=== PATIENT | female | born 1940 | race Caucasian/White ===

== ENCOUNTER → 2017-09-15 07:35 | Outpatient (CLI) | payer MEDICARE, OTHER, SELFPAY ==
--- NOTE | 2017-09-15 07:39 | DI.MRI.S_ITS ---
PROCEDURE: MR LUMBAR SPINE WO CON INDICATIONS: Back Pain TECHNIQUE: Noncontrast sagittal T1 spin echo and T2 fast echo, sagittal STIR, axial T1 and T2 fast spin echo through the lumbar spine. In cases with scoliosis, additional coronal T2 fast spin echo may be performed. COMPARISON: [facility], MR, L-SPINE WITHOUT CONTRAST, 01/16/2016, 10:30. [facility], MR, L-SPINE WITHOUT CONTRAST, 10/23/2010, 7:43. FINDINGS: Image quality: Excellent. Alignment and Curvature: There is normal bony alignment. Bone Marrow: Mild non-acute vertebral body compression fracture of T12 appears unchanged. There is degenerative endplate signal changes in lumbar spine. Spinal Cord: Conus medullaris terminates at the L1-L2 level. Visualized cord demonstrates normal signal and size. Paraspinous Soft Tissues: No paravertebral masses. L1-L2: Mild loss of disc height. Moderate disc desiccation. There is diffuse posterior disc bulge and disc osteophyte complex. The central canal is mildly narrowed. No foraminal stenosis. No significant change from the last exam. L2-L3: Severe loss of disc height and disc desiccation. There is diffuse posterior disc bulge and disc osteophyte complex. The central canal is moderately narrowed. Moderate bilateral foraminal stenosis. No significant change from the last exam. L3-L4: Minimal loss of disc height and severe disc desiccation. There is diffuse posterior disc bulge and disc osteophyte complex. Mild bilateral facet arthropathy and hypertrophy of ligamentum flavum. The central canal is severely narrowed. Moderate to severe bilateral foraminal stenosis. Compared to the last exam, there is increased Central canal and foramina stenosis. L4-L5: [id number] loss of disc height and severe disc desiccation. There is diffuse posterior disc bulge and disc osteophyte complex. Moderate bilateral facet arthropathy and severe hypertrophy of ligamentum flavum. The central canal is severely narrowed. Severe bilateral foraminal stenosis. Compared to the last exam, there is increased central canal and foramina stenosis. L5-S1: Moderate loss of disc height and severe disc desiccation. There is diffuse posterior disc bulge and disc osteophyte complex. Mild bilateral facet arthropathy and severe hypertrophy of ligamentum flavum. The central canal is mildly narrowed. Moderate to severe bilateral foraminal stenosis. Compared to the last exam, there is no significant change. IMPRESSION: 1. Multilevel degenerative disc disease and facet arthropathy as described. 2. Severe central canal stenosis at L3-L4 and L4-L5. 3. Multilevel foraminal stenosis, severe at L4-L5 bilaterally, [id number] at L3-L4 and L5-S1 bilaterally, and moderate at L2-L3 bilaterally. 4. Mild non--acute compression fracture of T12. Dictated by: Key Mckeon M.D. on 09/15/2017 at 12:39 Transcribed by: GEORGI on 09/15/2017 at 12:55 Approved by: Key Mckeon M.D. on 09/15/2017 at 15:56
== END ==
PROVIDERS: Family Provider Internal Medicine; PCP Internal Medicine; Visit Provider Internal Medicine
DX: M51.36 Other intervertebral disc degeneration, lumbar region (principal); M47.816 Spondylosis without myelopathy or radiculopathy, lumbar region; M48.061 Spinal stenosis, lumbar region without neurogenic claudication; M48.56XG Collapsed vertebra, not elsewhere classified, lumbar region, subsequent encounter for fracture with delayed healing; M54.5 Low back pain
CPT/HCPCS: 72148

== ENCOUNTER → 2017-11-04 10:10 | Outpatient (CLI) | payer MEDICARE, OTHER, SELFPAY ==
[2017-11-04 10:49] LABS: Add Manual Diff / Slide Review NO; Basophils Percent Auto 0.5 % (0-2); Eosinophils Percent Auto 2.7 % (2-4); Hematocrit 39.4 % (36-46); Hemoglobin 13.5 g/dL (12.0-16.0); Lymphocytes Percent Auto 30.5 % (25-40); Mean Corpuscular HGB Conc 34.4 % (30-36); Monocytes Percent Auto 8.3 % (3-14); Neutrophils Absolute Auto 2800 /uL (3000-5900); Platelet Count 192 X10^3/uL (150-400); Red Blood Cell Count 3.87 X10^6/uL (4.0-5.2); Red Cell Distribution Width 14.2 % (11.6-14.8); White Blood Cell Count 4.9 X10^3/uL (4.5-11.0)
[2017-11-04 11:22] LABS: BUN Creatinine Ratio 27.1 (6-22); Blood Urea Nitrogen 19 mg/dL (7-17); Calcium 9.4 mg/dL (8.4-10.2); Carbon Dioxide 31 mmol/L (22-32); Chloride 103 mmol/L (98-107); Estimated Glomerular Filt Rate > 60.0 mL/min (>60); Glucose 96 mg/dL (80-110); HEMOLYSIS < 15 (0-50); Sodium 142 mmol/L (137-145)
[2017-11-04 11:25] LABS: Prothrombin Time 10.8 SECONDS (10.1-12.7)
[2017-11-04 11:28] LABS: PTT Partial Thromboplastin Tim 29 SECONDS (26.4-36.2)
== END ==
PROVIDERS: Family Provider Internal Medicine; PCP Internal Medicine; Visit Provider Orthopaedic Surgery Orthopaedic Surgery of the Spine
DX: M47.26 Other spondylosis with radiculopathy, lumbar region (principal); Z51.81 Encounter for therapeutic drug level monitoring
CPT/HCPCS: 36415; 80048; 85025; 85610; 85730

== ENCOUNTER 2017-12-02 07:13 | Inpatient (IN) | payer MEDICARE, OTHER, SELFPAY ==
[2017-11-29 08:42] VITALS: BMI 23.8
[2017-12-02] VITALS (17 sets, daily range): BP systolic 113–162; BP diastolic 60–90; PULSE 72–96; RESP 10–18; TEMP 36.2–37.4; O2SAT 87–98; BMI 23.8
--- NOTE | 2017-12-02 | DI.RAD.S_ITS ---
PROCEDURE: XR LUMBAR SPINE 2-3V INDICATIONS: L4-5 TLIF FINDINGS: 2 limited intraoperative fluoroscopically stored images of the lower lumbar spine were obtained for intraoperative hardware localization purposes. These images are not meant for diagnostic purposes. Intraoperative findings related to a L4-L5 discectomy and fusion are present. IMPRESSION: Intraoperative images obtained during the patient's lower lumbar discectomy and fusion procedure. Dictated by: Hoang Ocampo M.D. on 12/02/2017 at 13:18 Approved by: Hoang Ocampo M.D. on 12/02/2017 at 13:22
[2017-12-02] MEDS: LACTATED RINGERS 1,000 ML 42 ML IV ×2 (08:50→11:56)
[2017-12-02] MEDS: CEFAZOLIN 2 GM/100 ML FROZ.PIGGY IV (10:22)
[2017-12-02] MEDS: ACETAMINOPHEN IV 1,000 MG/100 ML VIAL 400 MG IV (10:50)
--- NOTE | 2017-12-02 10:53 | SUR.OPER ---
Prone on spine table, head in foam head support, padded chest and pelvic supports, gel pad at knees, lower legs supported by pillows; nipples, genitalia and toes free of pressure, arms secured on foam padded arm boards at <90 degrees abduction. Tape over blanket at thigh secured to table.
[2017-12-02] MEDS: BUPIVACAINE 0.25% W/ EPI VIAL 30 ML INJ (11:01)
[2017-12-02] MEDS: BUPIVACAINE LIPOSOME 266 MG/20 ML VIAL INJ (11:02)
--- NOTE | 2017-12-02 12:36 | P.OP_ITS ---
Operative Date/Time/Diagnoses Date of procedure: 12/02/17 Time of procedure: 10:30 Pre-op diagnosis: 1. L4-5, L5-S1 spinal stenosis 2. L4-5, L5-S1 spondylosis with radiculopathy 3. Neurogenic claudication Post-op diagnosis: same Procedure & Clinicians Procedure: 1. L4-5 Postero-lateral and posterior interbody fusion 2. L4-5 interbody cage placement. 3. L4-5 decompressive laminectomy with bilateral facetecomies 4. L4-5 Posterior non-segmental instrumentation 5. L5-S1 hemilaminectomy 6. [place] of bone marrow from iliac crest 7. Utilization of microsurgical technique and operating microscope Same procedure as scheduled: Yes Indications: Patient has been having chronic back pain and worsening lumbar radiculopathy. Patient failed multiple conservative management with worsening pain weakness and numbness in her lower extremity. Patient has been having difficulty performing activity of daily living. After discussing risks benefits of treatment options, patient elected proceed with surgery. Surgeon: Sina Jacques Set Up And Charger: Triny Hernández Click Yes if Unassisted: No Anesthesia Type: General Operative Notes Closure Type: primary Specimen(s): none sent Implants & Drains: Globus revolve screws, Rise cage Estimated Blood Loss (mL): 100 Blood products transfused: none Procedure in detail: Patient was seen in the preoperative area. Risks and benefits of the surgery was discussed with the patient. Informed consent was obtained from the patient and placed in the chart. Surgical site was marked. Patient was taken to the operative room. General anesthesia was administered. Prophylactic antibiotic was given to the patient less than 30 min before the incision was made. Patient was placed into a prone position on the [place] table. Patient's back was then prepped and draped in the sterile fashion. Time- out was performed at this time. Using AP and lateral C-arm imaging the interval between L4-5, L5-S1 was identified and marked on patient's back. A 2 inch incision 2 in from midline was made on the left side first. The fascia was incised in line with skin incision. Globus MARS retractors was placed inside the incision and docked onto the L4 lamina. Using microsurgical technique and operating microscope, a L4 laminectomy and L4-5 facetectomy was performed using a Kerrison rongeur. The disc space at L4-5 was identified. And a total diskectomy was performed at L4-5 level. The endplates were decorticated using a rasp and shaver. The total diskectomy and decortication was performed at L4-5 level in order to to accomplish a L4-5 fusion. The local bone from the laminectomy and facetectomy was saved for local bone grafting. After the total diskectomy and decortication was completed, Globus viacell bone graft material was combined with local bone that was harvested earlier. At this time, a separate skin is incision was made over the iliac crest. A Jamshidi needle was inserted into the iliac crest through a separate skin incision. 5 cc of bone marrow aspiration was obtained through the separate skin incision using a Jamshidi needle from the iliac crest. The bone marrow aspiration was combined with local bone and the via cell bone grafting material. The bone grafting material was placed into the L4-5 interbody space along with a expandable cage. The cage was expanded to its maximum height using the torque limiting screwdriver. At this time the MARS retractor was redirected over the L5 lamina. Using microsurgical technique and operating microscope, a L5-S1 heminectomy was performed using the Kerrison rongeur. The ligamentum flavum was also resected at the side of the hemilaminectomy for further decompression of the epidural space. At this time a mirror image incision was made on the [] side. The fascia was incised in line with the skin incision. Globus MARS retractor was inserted and docked onto the L4-5 posterolateral gutter. Using the power drill, posterior- lateral decortication was performed at L4-5 level until bleeding cortical bone was identified. The remaining bone grafting material was placed into the L4-5 posterior lateral gutter he order to accomplish posterolateral fusion at the L4- 5 level. Using the double C-arm technique, pedicle screws were placed into the L4, L5 pedicles bilaterally. This was done by placing the Jamshidi needle into the pedicles, then placing the guidewires over the Jamshidi needle, and finally placing the cannulated screws over the guidewires bilaterally. After the pedicle screws were placed, 2 titanium rods was locked into the heads of the pedicle screws using locking caps and torque limiting screwdriver. After all the hardware was placed, and confirmed with AP and lateral C-arm imaging, the wound was then irrigated with sterile normal saline and packed with Ray-Nohemy gauze for 3 min to accomplish hemostasis. After the gauze was removed the deep fascia was closed with #1 Vicryl suture. The subcutaneous layer was closed with 2-0 Vicryl. The skin was closed with skin therese. Patient tolerated the procedure well. There were no complications. Complications: none Condition: stable Disposition: Acute Care Plan for aftercare: Admit to inpatient hospital
[2017-12-02] MEDS: HYDROMORPHONE 2 MG INJ 1 MG IM ×2 (12:44→13:01)
--- NOTE | 2017-12-02 14:00 | SUR.PHASEI ---
Pt transferred to room 220 via bed with all belongings; clothing and dentures. Vital signs stable. Report given to AMBIKA Manning prior to transfer. Nigel at bedside prior to leaving pt and pt's dressing to lower back assessed together; dressing was clean, dry, and intact. Pt's , Flo, and daughter, Tierra, notified of pt's transfer to 220.
[2017-12-02] MEDS: SODIUM CHLORIDE 0.9% 1,000 ML 100 ML IV ×2 (14:30→23:43)
[2017-12-02] MEDS: TERBINAFINE HCL 250 MG TABLET PO (18:10)
[2017-12-02] MEDS: CEFAZOLIN 1 GM/50 ML FROZ.PIGGY IV (18:40)
[2017-12-02] MEDS: DOCUSATE 100 MG CAPSULE PO (20:16)
[2017-12-02] MEDS: SENNOSIDES 8.6 MG TABLET 17.2 MG PO (20:16)
[2017-12-02] MEDS: OXYCODONE IR 5 MG TABLET 10 MG PO (22:21)
[2017-12-02] MEDS: hydrOXYzine pamoate 25 MG CAPSULE PO (22:21)
--- NOTE | 2017-12-02 23:53 | PC.NURSE ---
Addendum entered by Carmen Copeland R.N. 12/03/17 06:28: Up to commode this morning and voided 1000cc. Tried off O2 but did desat to 85% so placed back on 1L/min oxygen per NC and sat up to 95%. States pain at rest is 2/10 but was 4/10 with activity; medicated with Oxycodone but declined ice pack. SCD's off for hour. Original Note: Addendum entered by Carmen Copeland R.N. 12/03/17 02:41: Requesting to be positioned onto back. States she has slept well past couple hours. the ice really did the trick; denies any pain currently. Original Note: Patient is alert and oriented. Breath sounds CTA with oxygen at 2L/min per NC and sat of 96%. HRR. Denies nausea. BT present and is passing flatus. Denies dysuria, frequency, urgency or incontinence and has been getting up to commode with 1 assist + walker. Currently having 4/10 back pain but was recently medicated so ice pack applied for additional pain relief. Is able to turn with minimal assist. Dressings to back are CDI. CMS intact bilaterally. Artem SCD's placed at bedside shift report.
[2017-12-03] VITALS (7 sets, daily range): BP systolic 107–140; BP diastolic 60–71; PULSE 77–88; RESP 16–20; TEMP 36.3–36.8; O2SAT 91–95
[2017-12-03] MEDS: CEFAZOLIN 1 GM/50 ML FROZ.PIGGY IV (02:38)
[2017-12-03] MEDS: OXYCODONE IR 5 MG TABLET 10 MG PO ×3 (05:48→17:45)
[2017-12-03] MEDS: ASPIRIN EC 81 MG TABLET PO (08:36)
[2017-12-03] MEDS: DOCUSATE 100 MG CAPSULE PO (08:36)
[2017-12-03] MEDS: ACETAMINOPHEN 325 MG TABLET 650 MG PO ×2 (10:21→17:45)
--- NOTE | 2017-12-03 10:29 | PM.PNPO.1 ---
Subjective Date Patient Seen: 12/03/17 Time Patient Seen: 10:30 Interval history: POD #1 status post L4-5 TLIF and L5-S1 hemilaminectomy with Dr. Jacques. Patient's pain is well controlled with Vistaril and oxycodone. ASA for DVT prophylaxis. Patient has been working with physical therapy. No Dela Cruz in place. Exam Vital Signs (past 8 hours): - 12/03/17 02:40 12/03/17 05:50 12/03/17 07:50 Temperature 97.7 F 97.4 F L Pulse Rate 81 77 Respiratory Rate 16 20 Blood Pressure 140/64 135/71 Pulse Oximetry 94 94 95 Oxygen Delivery Method Nasal Cannula Oxygen Flow Rate 1 Narrative Exam Narrative: Patient lying in bed in no acute distress. She is alert and oriented x3. Calves are soft, compressible, nontender bilaterally. She is able to actively dorsiflex plantar flex. Pulses are symmetrical. Objective Labs Result Diagrams: 12/03/17 05:17 Labs: Laboratory Results - last 24 hr 12/03/17 05:17 Hgb 10.0 L Hct 29.0 L Assessment & Plan Post-op (1) S/P lumbar fusion: Current Visit: Yes Status: Acute Postoperative Procedures Operation Date: 12/02/17 09:45 Actual Procedures Side Surgeon p L5-S1 Hemilaminectomy, L4-5 TLIF w/Posterior Instru. Not Applicable Sina Jacques MD POD #1 status post L4-5 TLIF and L5-S1 hemilaminectomy with Dr. Jacques. Continue current pain management. Patient will continue to mobilize with physical therapy. No excessive bending, lifting, or twisting. Patient will likely discharge home tomorrow once mobilizing more and pain adequately controlled. Quality VTE Deep Vein Thrombosis/Pulmonary Embolism Present on Admission: No
--- NOTE | 2017-12-03 11:07 | OT.IP.EVAL ---
Current Diagnoses Other spondylosis with radiculopathy, lumbar region (12/02/17) Spinal stenosis, lumbar region without neurogenic claudication (12/02/17) Arthrodesis status (12/02/17) Surgery Performed Operation Date: 12/02/17 09:45 Actual Procedures p L5-S1 Hemilaminectomy, L4-5 TLIF w/Posterior Instru.(Not Applicable) - Sina Jacques MD Past Medical History (Last Updated 11/29/17 @ 09:10 by Jess Siegel RN) Hypertension (Chronic 06/06/17) Hyperlipidemia (Chronic 04/20/16) Peripheral arterial disease (Chronic 02/13/16) Diverticulosis of large intestine without hemorrhage (Chronic 04/22/15) Osteoporosis (Chronic 04/22/15) Former smoker (Inactive 04/20/16) 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) Vascular claudication (Chronic 04/20/16) 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) ASVD (arteriosclerotic vascular disease) (Acute) Easy bruisability (Acute) Iliac artery stenosis, bilateral (Acute) Surgical History (Last Updated 11/29/17 @ 09:11 by Jess Siegel RN) Hx of sinus surgery (Acute) Status post bilateral cataract extraction (Acute) Occupational Therapy Inpatient Evaluation/Re-Eval M1 PT/OT-IP Prior Functional Status Start: 12/03/17 09:57 Freq: NEEDED Status: Active Protocol: Document 12/03/17 11:07 PJM (Rec: 12/03/17 12:28 PJM [id number]) Medical Review Prior Functional Status Medical History Reviewed Yes Diet/Fluid Consistency Regular Communication WNL Mobility and Gait Patient ambulated occasionally with a SPC or use of her 's arm for balance assist. Activities of Daily Living and IADL's Independent in all self care. Prior Functional Level (Other details) Patient did most of the cooking, laundry, cleaning around the house. Drove as needed and did the grocery shopping with her . Social History Household Members spouse Living Arrangements House Number of Floors (Floors) 3 or More Floors Number of Stairs To Enter/Railing? 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 amanda lami Diagnosis Onset Date 12/02/17 Post Operative Precautions Lumbar Precautions Log Roll No Twisting Limit Bending Lifting Restriction of 10 lbs Gait Belt above Incisional Area Weight Bearing Status Weight Bearing Status Full Weight Bearing M3 OT- IP Subjective and Pain Start: 12/03/17 12:15 Freq: Status: Active Protocol: Document 12/03/17 11:07 PJM (Rec: 12/03/17 12:28 PJ [id number]) OT- Subjective Occupational Therapy Visit Type Type Initial Evaluation Visit Start Time 10:22 Visit Stop Time 11:07 Total Visit Minutes 45 Notes Pt awake and alert in bed; very pleasant and cooperative with good effort and participation. Occupational Therapy Visit Comments Patient/Caregiver Goals to go home; return to being independent in home setting OT Pain Assessment Pain When Pain Assessed After Treatment Pain Present Pain Present Pain Reported Location Lower Back Intensity 3 Scale Used Numeric (1 - 10) Description Aching Acute Management Techniques Distraction Re-positioning Timing of Activity with Medications M4 OT- IP ADL's Start: 12/03/17 12:15 Freq: Status: Active Protocol: Document 12/03/17 11:07 PJM (Rec: 12/03/17 12:28 PJ [id number]) OT [id number]-[id number] General Evaluation Self-Feeding Ability Independent OT ADL-Grooming General Evaluation Grooming Ability Independent Comments OT Grooming Comments after education re: body mechanics, standing at sink OT ADL-Oral Care General Eval Oral Care Ability Independent Comments Oral Care Comments after education re: body mechanics OT ADL-Dressing General Eval Upper Body Dressing Ability Independent Lower Body Dressing Ability Independent Areas Needing Assistance Underpants/Brief Socks Comments OT Dressing Comments pt wears slip on shoes; pt has cigarette paper tester for use PRN, does not need other equipt OT ADL-Toileting General Evaluation Toileting Ability Independent Comments OT Toileting Comments provided education re: body mechanics for azam care OT ADL-Bathing Devices Bathing Equipment Long Handled Sponge or [place] Comments OT Bathing Comments pt declines to shower here; provided long bath sponge and education re: precautions and body mechanics; pt to borrow tub seat and family to assist PRN M5 OT- IP IADL's Start: 12/03/17 12:15 Freq: Status: Active Protocol: Document 12/03/17 11:07 PJM (Rec: 12/03/17 12:28 [facility] [id number]) OT-Instrumental Activities of Daily Living Deficits IADL Deficits Identified Deficits Home Safety Awareness Awareness of Need for Assistance at Home Good Awareness Ability to Problem Solve Emergency Able to Problem Solve Situations Medication Management Medication Management No Deficits Identified Money Management Money Management No Deficits Identified Meal Preparation Meal Preparation Caregiver Provides Assist Meal Preparation Comments family to assist until pt able Channeling Machine Operator Channeling Machine Operator Caregiver Provides Assist Channeling Machine Operator Comments family to assist until pt able Driving Driving Caregiver Provides Assist Driving Comments family to assist until pt able M6 OT- IP Functional Cognition Start: 12/03/17 12:15 Freq: Status: Active Protocol: Document 12/03/17 11:07 PJM (Rec: 12/03/17 12:28 [facility] [id number]) Cognitive Factors Limiting Selfcare Function Cognitive Ability Level of Alertness Alert Patient Orientation Name Age Birthday Month Date Year Day of Week Place Situation Attention Span Ability Capable of Focused Attention Capable of Sustained Attention Ability to Follow Commands Able to Follow One Step Commands Memory Description No Deficits Noted Safety Awareness No Deficits Noted Problem Solving Ability No deficits Noted Cognitive Comments Cognitive Assessment Comments appears WNL OT- Vision and Hearing OT- Hearing Assessment OT- Hearing Assessment WFL OT- Vision Assessment Visual Acuity WFL Vision Assessment Comments pt denies any recent vision changes M7 OT- IP Mobility and Balance Start: 12/03/17 12:15 Freq: Status: Active Protocol: Document 12/03/17 11:07 PJM (Rec: 12/03/17 12:28 [facility] [id number]) OT- Bed Mobility Assessment Rolling Type of Rolling Roll to Left Level of Assistance Independent Supine to Sit Supine to Sit Assist Independent Scooting Scooting to Edge of Bed Independent OT-Transfer Assessment Sit to and From Stand Sit to and from Stand Standby Assistance Transfers Transfer Ability Standby Assistance Technique Transfer Destination Chair Transfer Technique Stand Step Pivot Devices Transfer Assistive Devices Gait Belt Front Wheeled Walker Comments Mobility Comments excellent log rolling technique OT- Gait Assessment Comments Gait Ability Comments did not occur, see P.T. report OT- Balance Assessment Sitting Balance and Reactions Static Sitting Balance Ability Good Dynamic Sitting Balance Ability Good Standing Balance and Reactions Static Standing Balance Ability Good Dynamic Standing Balance Ability Good Comments Other Balance Tests/Deviations/Treatment when standing to pull pants : over hips M8 OT- IP Objective Assessments Start: 12/03/17 12:15 Freq: Status: Active Protocol: Document 12/03/17 11:07 PJM (Rec: 12/03/17 12:28 PJM [id number]) OT Gross Range of Motion Upper Extremity Range of Motion Assessment Within Functional Limits OT Strength Upper Extremity Strength Assessment Within Functional Limits OT- Coordination Assessment Comments Coordination Comments BUE WNL OT-Muscle Tone Assessment Muscle Tone WNL Yes OT Sensation Assessment Comments Summary Comments pt denies deficits in BUE's Edema Edema Absent M9 OT- IP Assessment and Plan Start: 12/03/17 12:15 Freq: Status: Active Protocol: Document 12/03/17 11:07 PJM (Rec: 12/03/17 12:28 PJM [id number]) OT Summary Assessment and Plan Potential Rehabilitation Potential Excellent Analytic Complexity at Evaluation Low Summary Progress Towards Goals Safe For Discharge Goals Met Assessment Summary Low complexity OT assessment and all OT education completed re: lumbar spine precautions, posture, optimal chair selection, adapted ADL techniques. Pt demonstrates and verbalizes good understanding of all education . She declines to shower here. No further OT services needed for this admission. Pt plans to return home with 24 family assist when medically stable and clears P.T. Frequency of Treatment Frequency Of Treatment Discharge Discharge Recommendations OT Discharge Recommendations Home with / Assist Home Equipment Needs family to obtains shower seat for pt
--- NOTE | 2017-12-03 11:50 | CM.DANOTE ---
Patient is a 76 year old female who was admitted on 12/02/17 for Lumbar Spine surgery. Pt has MCR and COMM for insurance and her PCP is Dr. Ruano. EMR was reviewed. Per MD, pt tolerated procedure well. Per PT/OT, recommending safe d/c home with spouse when medically stable. SW met bedside with pt while OT was working with pt and explained role and pt confirmed that she lives at home on [address] with her where she has lived since 2001 and is Independent with ADL's at baseline and drives. Pt's DPOA is her Amilcar. Pt denies any hx of HH or SNF and confirms that her preference is to d/c home via spouse to transport and states her 2 adult Dtrs who live in [facility] plan to stay with them for a week at d/c to provide assist if needed. Plan: SW to follow for likely pt d/c home when medically stable via spouse POV and adult Dtrs to stay for a week at discharge. SW to follow for any further identified discharge planning needs. KELL Shaikh Discharge Planning/Care Management CM Discharge Assessment Start: 12/03/17 11:47 Freq: Status: Active Protocol: Document 12/03/17 11:47 BF (Rec: 12/03/17 11:50 BF [id number]) Discharge Planning Assessment Assigned Transformer Mechanic KELL Oliver DPOA/Assigned Designee Name spouse Amilcar Contact Information [phone] Advance Directives? Yes Advance Directives on File No History Provided By Patient Medical Record Has Patient been admitted in last 30 No days? Prior Living Arrangements House Household Members spouse Type of transporation used prior to Drives own vehicle admit Comment Lives at home on [address] with her spouse and has 2 local Dtrs in [facility]. Independent with ADL's Yes Is patient alert and oriented? Yes Caregiver for Another No DME Already Rented / Owned FWW / Walker Comment Likely home with spouse and 2 adult Dtrs to stay for a week at d/c for assist. Barriers to Discharge No Discharge Plan Home Transportation Arrangement Spouse plans to provide transport home at d/c Referrals Initiated None needed Inpatient Status as of 12/02/17 Whiteboard Updated in Patient Room with Yes name and ext. # of Transformer Mechanic Review Status In Process Please Provide Date Initial DC 12/03/17 Assessment Was Performed Next Review Type Continued Stay Review Pre-Anesthesia Assessment Start: 11/29/17 08:42 Freq: Status: Complete Protocol: Document 11/29/17 08:42 CAB (Rec: 11/29/17 09:24 CAB [id number]) Pre-Anesthesia Assessment Patient Also Known As Abraham (AKA) Patient Information Reviewed Via Phone Assessment Assessment Completed With Patient Lab Results BMP/CMP CBC EKG PT/INR Primary Care Provider Miguel Ruano Medical Clearance Received Yes Seen Specialist in Last 12 Months Yes Specialist Seen Screen Making Technician Orthopedist Other Comment PCP pre-op and Vascular [facility] Primary Language Kyrgyz Electronic Warfare Technician Required No Height 157.48 cm Weight 58.967 kg Body Mass Index (BMI) 23.8 Hearing Ability Normal Visual Assist Glasses Dentition Type Teeth, Natural Present Barriers to Learning None Other Aids No Hx Anesthesia Reactions No Hx Family Anesthesia Reaction No Hx Malignant Hyperthermia No Hx Blood Transfusions Yes: r/t sinus surgery >50 years ago Hx Blood Transfusion Reaction No Anesthesia Review Requested No Ecommerce Project Manager No alcohol intake current alcohol intake frequency 0-2 drinks per day Smoking Status Former smoker Smoking packs per day 1 how long ago did patient quit smoking Quit 2016, smoked 60+ years x 1PPD Smoking pack-years 60 Substance Use Type does not use Pain Present Pain Reported Musculoskeletal Symptoms Back Pain Difficulty Walking Muscle Spasms Radiating Pain into Limb History of Falling (Recent or History of No ) Patient is completely paralyzed or No completely immobile Prosthesis or Orthotic Device Cane Mental Status Oriented to own ability Is patient on oxygen? No Does patient have BANKS/SOB Yes: BANKS Hx Sleep Apnea No Suspected Sleep Apnea No Currently Taking a Beta Wing No Can You Climb a Flight of Stairs Without No SOB Hx Chest Pain No Hx SOB Yes: Dyspnea climbing up hill Hx Syncope or Dizziness No Anti-Coagulant Therapy Yes: Plavix and Asa, advised to hold 7 days per Cardiology Has a Screen Making Technician Yes: Dr. Chu Cardiac Testing Yes: Nuc stress 11/22/17, EKG x 2, Hx Pacemaker/ICD No Pacemaker Rep Required? No Cardiac Clearance Received Yes Comment Cardiac clearance, testing, ov note to med records to be scanned Diet Type At Home Regular dysphagia No Urinary Catheter Present No Hx Urinary Self Catheterization No Diabetes No Patient No Lactating No Hx Drug Resistant Organism No Presence of External or Internal Medical Yes Devices Comment Bilateral eye lens Have you traveled outside the [place] No States in the last 30 days? Marital Status Lives With spouse Prior Living Arrangements House Number of Floors (Floors) 3 or More Floors Number of Stairs To Enter/Railing? 2 steps, no railing Support System Child/Children Spouse Does the Patient Have Assistance After Yes Surgery Patient Discharge Plan Description Return Home Comment Pt advised 1-2 day length of stay per surgeon's office Feels Safe in Current Environment Yes Been Physically Hurt or Threatened By a No Person in Current Environment Do you have thoughts of harming yourself None or others? Are you currently considering suicide? No Do you have a plan to hurt yourself or No Plan others? Do You Have Any Spiritual Beliefs That No May Affect Your HC Choices? Do You Have Any Cultural Practices That No May Affect Your HC Choices? Spiritual Referral None Comment [facility] Who Can We Speak to About Patient's Care Family, friends Identifying Code for Release of Patient Declines to issue Information Health Care Proxy/Next of Kin Amilcar () Health Care Proxy Emergency Contact Name Rayna Kraus (daughter) Advance Directives? Yes Advance Directives on File No Requested Patient Bring Advanced Yes Directives DOS Power of Global Technical Writer Yes Power of Global Technical Writer Name Amilcar () Power of Global Technical Writer PAC Instructions Durable medical equipment Medications to take/avoid Nasal antibiotic No ETOH/petroleum product on skin DOS NPO Post-op transportation Pre-surgical wash Sturdy shoes/comfortable clothes Do not bring valuables and remove jewelry
--- NOTE | 2017-12-03 12:34 | PT.IIE ---
Current Diagnoses Other spondylosis with radiculopathy, lumbar region (12/02/17) Spinal stenosis, lumbar region without neurogenic claudication (12/02/17) Arthrodesis status (12/02/17) Surgery Performed Operation Date: 12/02/17 09:45 Actual Procedures p L5-S1 Hemilaminectomy, L4-5 TLIF w/Posterior Instru.(Not Applicable) - Sina Jacques MD Surgical History (Last Updated 11/29/17 @ 09:11 by Jess Siegel RN) Hx of sinus surgery (Acute) Status post bilateral cataract extraction (Acute) Medical History (Last Updated 11/29/17 @ 09:10 by Jess Siegel RN) Hypertension (Chronic 06/06/17) Hyperlipidemia (Chronic 04/20/16) Peripheral arterial disease (Chronic 02/13/16) Diverticulosis of large intestine without hemorrhage (Chronic 04/22/15) Osteoporosis (Chronic 04/22/15) Former smoker (Inactive 04/20/16) 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) Vascular claudication (Chronic 04/20/16) 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 Activities of Daily Living and IADL's Independent in all self care. Prior Functional Level (Other details) Patient did most of the cooking, laundry, cleaning around the house. Drove as needed and did the grocery shopping with her . Social History Household Members spouse Living Arrangements House Number of Floors (Floors) 3 or More Floors Number of Stairs To Enter/Railing? 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 Weight Bearing Status Weight Bearing Status Full Weight Bearing M3 PT-IP Subjective Start: 12/03/17 09:57 Freq: NEEDED Status: Active Protocol: Document 12/03/17 08:50 NFW (Rec: 12/03/17 10:37 NFW [email or web address]) Subjective Physical Therapy Visit Type Type Initial Evaluation Visit Start Time 08:50 Visit Stop Time 09:35 Total Visit Minutes 55 Physical Therapy Visit Comments Patient Comments Patient alert, oriented, asking appropriate questions. Good participation with treatment. Patient Goals Return home with on [facility]. Therapy Pain Assessment Pain When Pain Assessed At Rest Pain Present Pain Present Pain Reported Location Lower Back Intensity 3 Scale Used Pain decreased to level 2 at end of treatment Description Dull M4 PT-IP Mobility and Gait Start: 12/03/17 09:57 Freq: NEEDED Status: Active Protocol: Document 12/03/17 08:50 NFW (Rec: 12/03/17 10:37 NFW [email or web address]) PT-Bed Mobility Assessment Rolling Type of Rolling Log Rolling Level of Assist Minimal Assistance Supine to Sit Supine to Sit Minimal Assistance Sit to Supine Sit to Supine Minimal Assistance Scooting Scooting to Edge of Bed Standby Assistance Scooting Up and Down in Bed Standby Assistance PT-Transfer Assessment Sit to and From Stand Sit to and from Stand Contact Guard Assistance Equipment Transfer Assistive Device Front Wheeled Walker Orthotic/Prosthetic Devices or Brace: No Transfers Transfer Destination Bed Toilet Transfer Technique Stand Step Pivot Transfer Ability Level of Assist Minimal Assistance Gait Assessment Gait Gait Assistance Required: Contact Guard Assist Distance (Feet) 25 Able to Maintain Weight Bearing Status Yes During Gait Assistive Devices Assistive Device Front Wheeled Walker Gait Deviations General Gait Pattern Within Normal Limits Comments Gait Comments Verbal cuing required to learn how to walk with FWW. Good form following instruction. Noticed a little weakness in LEs after ambulation. PT-Balance Assessment Sitting Balance and Reactions Static Sitting Balance Ability Normal Dynamic Sitting Balance Ability Normal M5 PT-IP Objective Assessments Start: 12/03/17 09:57 Freq: NEEDED Status: Active Protocol: Document 12/03/17 08:50 NFW (Rec: 12/03/17 10:37 NFW [email or web address]) Orientation Orientation/Cognition Level of Alertness Alert Language Function Ability No Deficits Noted Safety Awareness Understands Safety Issues Memory Description No Deficits Noted Gross Range of Motion Lower Extremity ROM Assessment Within Functional Limits Strength Upper Extremity Strength Assessment Within Functional Limits Lower Extremity Strength Assessment Within Functional Limits Muscle Tone Muscle Tone WNL Yes M6 PT-IP Treatment Start: 12/03/17 09:57 Freq: NEEDED Status: Active Protocol: Document 12/03/17 08:50 NFW (Rec: 12/03/17 10:37 NFW [email or web address]) Physical Therapy Treatment Exercises Exercises Ankle Pumps Education Education Provided Precautions Post-Op Packet Other Treatments Other Treatment Performed Instruction breathing exercises. Discussion pacing of her gait with walker. Discussion maintaining neutral position of the spine with all activities. M7 PT-IP Assessment and Plan Start: 12/03/17 09:57 Freq: NEEDED Status: Active Protocol: Document 12/03/17 08:50 NFW (Rec: 12/03/17 10:37 NFW [email or web address]) PT Summary Assessment and Plan Potential Rehabilitation Potential Excellent Status of Condition at Evaluation Stable Summary Impairments Pain Balance Bed Mobility Transfers Gait Activity Tolerance Progress Towards Goals Progressing Toward Goals Assessment Summary Patient with good participation in PT. Has decrease confidence in strength LEs post surgery. Required extensive instruction on proper breathing technique and exercises. O2 improved from 89 to 94. Good understanding of lumbar spine precautions but will need repetition. Goals Bed Mobility Goal Independent Transfer Goal Independent Gait Goal Independent Days to Meet Goals 2 Frequency of Treatment Frequency Of Treatment Twice a Day Treatment Plan Physical Therapy Treatment Plan Bed Mobility Training Transfer Training Gait Training Therapeutic Exercise Post Op Education Discharge Planning Other Recommendations and Next Treatment Review breathing. Check to Focus see if O2 can be d/c if improved. Recommendations To Nursing Amount of Assist Needed 1 Person Assist Discharge Recommendations PT Discharge Recommendations Home with Assistance Other Discharge Recommendations Home with .
--- NOTE | 2017-12-03 14:52 | PT.IPTN ---
Current Diagnoses Other spondylosis with radiculopathy, lumbar region (12/02/17) Spinal stenosis, lumbar region without neurogenic claudication (12/02/17) Arthrodesis status (12/02/17) Surgery Performed Operation Date: 12/02/17 09:45 Actual Procedures p L5-S1 Hemilaminectomy, L4-5 TLIF w/Posterior Instru.(Not Applicable) - Sina Jacques MD Physical Therapy Treatment Note M2 PT-IP Current Condition Start: 12/03/17 09:57 Freq: NEEDED Status: Active Protocol: Document 12/03/17 13:40 NFW (Rec: 12/03/17 14:46 NFW [id number]) Physical Therapy Current Condition Current Condition Evaluation Date 12/03/17 Treatment Diagnosis s/p L4-5, L5-S1 Fusion, Onset Date 12/02/17 Precautions Lumbar Precautions Log Roll No Twisting Limit Bending Lifting Restriction of 10 lbs Gait Belt above Incisional Area Other Precautions Sitting limited to 15-20 minutes at one time. Weight Bearing Status Weight Bearing Status Full Weight Bearing M3 PT-IP Subjective Start: 12/03/17 09:57 Freq: NEEDED Status: Active Protocol: Document 12/03/17 13:40 NFW (Rec: 12/03/17 14:46 NFW [id number]) Subjective Physical Therapy Visit Type Type Treatment Note Visit Start Time 13:40 Visit Stop Time 14:20 Total Visit Minutes 40 Number of NATURAL RESOURCES ENGINEER Visits 0 Physical Therapy Visit Comments Patient Comments Patient has many family members visiting and assisting with treatment and instruction. Patient Goals Return home with on [facility]. Therapy Pain Assessment Pain When Pain Assessed At Rest Pain Present Pain Present Pain Reported Location Lower Back Intensity 1 M4 PT-IP Mobility and Gait Start: 12/03/17 09:57 Freq: NEEDED Status: Active Protocol: Document 12/03/17 13:40 NFW (Rec: 12/03/17 14:46 NFW [id number]) PT-Bed Mobility Assessment Rolling Type of Rolling Roll to Right Level of Assist Standby Assistance Supine to Sit Supine to Sit Standby Assistance Sit to Supine Sit to Supine Standby Assistance Scooting Scooting to Edge of Bed Standby Assistance Scooting Up and Down in Bed Standby Assistance PT-Transfer Assessment Sit to and From Stand Sit to and from Stand Standby Assistance Equipment Transfer Assistive Device Front Wheeled Walker Orthotic/Prosthetic Devices or Brace: No Transfers Transfer Destination Bed Chair Wheelchair Transfer Ability Level of Assist Minimal Assistance Comments Mobility Comments Improved awareness of neutral posture with transitional activities. Gait Assessment Gait Gait Assistance Required: Contact Guard Assist Distance (Feet) 400 Able to Maintain Weight Bearing Status Yes During Gait Assistive Devices Assistive Device Front Wheeled Walker Gait Deviations General Gait Pattern Within Normal Limits Comments Gait Comments Did not lean on FWW but pushed lightly during ambluation. Improved strength noted in LEs . For daniela had one of the family members follow with w/c . Stair Climbing Assessment Evaluation Level of Assist On Stairs Contact Guard Assistance Devices Stair Climbing Assistive Devices Left Railing Right Railing Technique/Endurance Stair Climbing Direction Ascend and Descend Stair Climbing Technique Step Over Step Number of Steps Climbed 3 Query Text: Stair Climbing Set # Repetitions (reps) 2 Comments Stair Climbing Comments Able to step over step when using both handrails. In having patient using one handrail and assist of her granddaughter patient did one step at a time. PT-Balance Assessment Sitting Balance and Reactions Static Sitting Balance Ability Normal Dynamic Sitting Balance Ability Normal M5 PT-IP Objective Assessments Start: 12/03/17 09:57 Freq: NEEDED Status: Active Protocol: Document 12/03/17 08:50 NFW (Rec: 12/03/17 10:37 NFW [email or web address]) Orientation Orientation/Cognition Level of Alertness Alert Language Function Ability No Deficits Noted Safety Awareness Understands Safety Issues Memory Description No Deficits Noted Gross Range of Motion Lower Extremity ROM Assessment Within Functional Limits Strength Upper Extremity Strength Assessment Within Functional Limits Lower Extremity Strength Assessment Within Functional Limits Muscle Tone Muscle Tone WNL Yes M6 PT-IP Treatment Start: 12/03/17 09:57 Freq: NEEDED Status: Active Protocol: Document 12/03/17 13:40 NFW (Rec: 12/03/17 14:46 NFW [id number]) Physical Therapy Treatment Education Education Provided Precautions Safety Other Treatments Other Treatment Performed Review abdominal bracing, hinging at hips with sit-stand activity. M7 PT-IP Assessment and Plan Start: 12/03/17 09:57 Freq: NEEDED Status: Active Protocol: Document 12/03/17 13:40 NFW (Rec: 12/03/17 14:46 NFW [id number]) PT Summary Assessment and Plan Potential Rehabilitation Potential Excellent Status of Condition at Evaluation Stable Summary Assessment Summary No complaints of weakness. Improved performance with transitional activities and a notable improvment in gait. O2 measured at 94 consistently through treatment. Frequency of Treatment Frequency Of Treatment Twice a Day Treatment Plan Physical Therapy Treatment Plan Bed Mobility Training Transfer Training Gait Training Therapeutic Exercise Post Op Education Discharge Planning Other Recommendations and Next Treatment O2 has been d/c'd. Focus Recommendations To Nursing Amount of Assist Needed 1 Person Assist Discharge Recommendations PT Discharge Recommendations Home with Assistance Other Discharge Recommendations Home with .
--- NOTE | 2017-12-03 23:55 | PC.NURSE ---
Addendum entered by Carmen Copeland R.N. 12/04/17 06:43: States pain on left side of back is really bad this morning. Rates severity as 4/10; medicated with Oxycodone, repositioned in bed and ice pack applied. Original Note: Addendum entered by Carmen Copeland R.N. 12/04/17 02:06: Complains of 3/10 back pain; medicated with Oxycodone Original Note: Patient is alert and oriented except to actual date in month (only off by 1 day). Breath sounds diminished at bases with RA sat of 92% so encouraged to CDB. HRR. Denies nausea. BT present and abdomen is soft. Is passing flatus but has not yet had BM since surgery. Denies urinary problems. Is able to turn self in bed and is assisted when out of bed with walker and 1 assist. Dressing to back retaped at top and noted to have 1 small spot of dark drainage; outlined. Also noted to have large ecchymotic area to left of dressing. Denies any pain at present time. Declines use of SCD's. Fall risk score is moderate; bed alarm is activated.
[2017-12-04] MEDS: OXYCODONE IR 5 MG TABLET 10 MG PO ×3 (02:04→11:37)
[2017-12-04] MEDS: hydrOXYzine pamoate 25 MG CAPSULE PO ×2 (07:32→11:37)
[2017-12-04] MEDS: ACETAMINOPHEN 325 MG TABLET 650 MG PO (07:32)
[2017-12-04 08:00] VITALS: BP 126/69; PULSE 79; RESP 16; TEMP 36.7; O2SAT 89
[2017-12-04] MEDS: CLOPIDOGREL 75 MG TABLET PO (09:09)
[2017-12-04] MEDS: ASPIRIN EC 81 MG TABLET PO (09:09)
[2017-12-04] MEDS: DOCUSATE 100 MG CAPSULE PO (09:09)
--- NOTE | 2017-12-04 10:48 | PM.DS.1 ---
History of Present Illness Date Patient Seen: 12/04/17 Time Patient Seen: 10:49 Chief complaint: [id number] Narrative: The patient had a lumbar fusion the day of admission. She is doing very well today. She has been up with physical therapy. She feels ready to be discharged to home today. Discharge Providers Date of admission: 12/02/17 07:13 Primary care physician: Miguel Ruano MD Consults: 12/02/17 14:07 Consult to Occupational Therapy Evaluate & Treat Comment: Physician Instructions: Evaluate and treat Consult to Physical Therapy Evaluate & Treat Comment: Physician Instructions: Evaluate and Treat Discharge provider: Jose Reid MD Discharge Date: 12/04/17 Summary Discharge Diagnosis: Degenerative disc disease/lumbar stenosis Hospital Course: The patient had surgery on the day of admission. Surgical course has been uneventful. She is ready for discharge today. Status at Discharge Cognitive/behavioral status at discharge: Fully alert and oriented Functional status at discharge: independent ambulation Overall status at discharge: patient is progressing back to baseline Time Spent with Patient Less than 30 minutes Exam Vital Signs (past 8 hours): - 12/04/17 08:00 Temperature 98.1 F Pulse Rate 79 Respiratory Rate 16 Blood Pressure 126/69 Pulse Oximetry 89 L Oxygen Delivery Method Room Air Oxygen Flow Rate 0 Const General: cooperative Orientation: oriented x3 Skin Other: The dressing is intact. There is a small dime-sized area of dried drainage. There is significant bruising around the flank. Neuro Other: Strength and sensation grossly intact throughout lower extremity. Extrem Other: Extremity exam normal. No significant swelling. Objective Labs Result Diagrams: 12/03/17 05:17 Discharge Plan Discharge Plan Patient Disposition: Home Discharge comment: DC home with cover site dressing on Discharge Med Rec/Prescriptions Prescriptions: New acetaminophen 325 mg Tablet 650 mg PO Q6HR PRN (Reason: Pain, Mild (1-3)) Qty: 60 RF: 0 docusate sodium 100 mg Capsule 100 mg PO BID Qty: 60 RF: 0 hydroxyzine pamoate 25 mg Capsule 25 mg PO Q6HR Qty: 40 RF: 1 oxycodone 5 mg capsule 5 mg PO Q4-6H PRN (Reason: pain) Qty: 60 RF: 0 Continue CALCIUM CARBONATE (#CALTRATE 600) 600 mg PO BID Qty: 0 RF: 0 aspirin 81 MG tablet,delayed release (DR/EC) 81 mg PO QDAY Qty: 0 RF: 0 clopidogrel 75 MG tablet 75 mg PO QDAY Qty: 0 RF: 0 atorvastatin 40 mg tablet 40 mg PO QDAY Qty: 90 RF: 3 tramadol 50 mg tablet 50 mg PO QID PRN (Reason: pain) Qty: 30 RF: 1 terbinafine HCl 250 mg tablet 250 mg PO Q3D RF: 0 Discontinued ibuprofen 200 MG tablet 200 mg PO PRN PRN (Reason: pain) Qty: 0 RF: 0 cyclobenzaprine 5 mg tablet 5 mg PO TID PRN (Reason: Muscle Spasm) RF: 0 Follow up/Referrals: Sina Jacques MD [Physician] - (Follow up in 10-14 days with AUGUSTO) Miguel Ruano MD [Primary Care Provider] - Provider Discharge Instructions Activity: No excessive bending, lifting, or twisting Cold/Heat Therapy: as needed Skin/Wound/Dressing Care Report to your healthcare provider any signs of infection, such as:: chills, fever and increased pain Dressing: Leave in place for 10-14 days Visit Report/Discharge Packet Instructions: Stool Softeners, Oxycodone, Hydroxyzine, DI for Transforaminal Lumbar Interbody Fusion Visit Report Forms: Stroke Signs & Symptoms Discharge Data Primary Care Provider: Miguel Ruano Attending Provider: Sina Jacques Admit Date/Time: 12/02/17 07:13 Quality VTE Deep Vein Thrombosis/Pulmonary Embolism Present on Admission: No
--- NOTE | 2017-12-04 11:46 | PT.IPTN ---
Current Diagnoses Other spondylosis with radiculopathy, lumbar region (12/02/17) Spinal stenosis, lumbar region without neurogenic claudication (12/02/17) Arthrodesis status (12/02/17) Surgery Performed Operation Date: 12/02/17 09:45 Actual Procedures p L5-S1 Hemilaminectomy, L4-5 TLIF w/Posterior Instru.(Not Applicable) - Sina Jacques MD Physical Therapy Treatment Note M2 PT-IP Current Condition Start: 12/03/17 09:57 Freq: NEEDED Status: Active Protocol: Document 12/03/17 13:40 NFW (Rec: 12/03/17 14:46 NFW [id number]) Physical Therapy Current Condition Current Condition Evaluation Date 12/03/17 Treatment Diagnosis s/p L4-5, L5-S1 Fusion, Onset Date 12/02/17 Precautions Lumbar Precautions Log Roll No Twisting Limit Bending Lifting Restriction of 10 lbs Gait Belt above Incisional Area Other Precautions Sitting limited to 15-20 minutes at one time. Weight Bearing Status Weight Bearing Status Full Weight Bearing M3 PT-IP Subjective Start: 12/03/17 09:57 Freq: NEEDED Status: Active Protocol: Document 12/04/17 11:17 CLB (Rec: 12/04/17 11:46 CLB [id number]) Subjective Physical Therapy Visit Type Type Treatment Note Visit Start Time 11:17 Visit Stop Time 11:30 Total Visit Minutes 13 Number of DATA MODELING SPECIALIST Visits 1 Physical Therapy Visit Comments Patient Comments Pt willing to walk. Patient Goals Return home with on [facility]. Therapy Pain Assessment Pain When Pain Assessed During Mobility Pain Present Pain Present Pain Reported Location Lower Back Pain Behaviors Holding Area M4 PT-IP Mobility and Gait Start: 12/03/17 09:57 Freq: NEEDED Status: Active Protocol: Document 12/04/17 11:17 CLB (Rec: 12/04/17 11:46 CLB [id number]) PT-Transfer Assessment Sit to and From Stand Sit to and from Stand Standby Assistance Equipment Transfer Assistive Device Front Wheeled Walker Orthotic/Prosthetic Devices or Brace: No Transfers Transfer Destination Chair Transfer Ability Level of Assist Standby Assistance Gait Assessment Gait Gait Assistance Required: Contact Guard Assist Distance (Feet) 100 Able to Maintain Weight Bearing Status Yes During Gait Assistive Devices Assistive Device Front Wheeled Walker Gait Deviations General Gait Pattern Within Normal Limits Comments Gait Comments Pt with increased pain in left hip with ambulation and pt felt left hip was going to give way. M5 PT-IP Objective Assessments Start: 12/03/17 09:57 Freq: NEEDED Status: Active Protocol: Document 12/03/17 08:50 NFW (Rec: 12/03/17 10:37 NFW [id number]) Orientation Orientation/Cognition Level of Alertness Alert Language Function Ability No Deficits Noted Safety Awareness Understands Safety Issues Memory Description No Deficits Noted Gross Range of Motion Lower Extremity ROM Assessment Within Functional Limits Strength Upper Extremity Strength Assessment Within Functional Limits Lower Extremity Strength Assessment Within Functional Limits Muscle Tone Muscle Tone WNL Yes M6 PT-IP Treatment Start: 12/03/17 09:57 Freq: NEEDED Status: Active Protocol: Document 12/03/17 13:40 NFW (Rec: 12/03/17 14:46 NFW [id number]) Physical Therapy Treatment Education Education Provided Precautions Safety Other Treatments Other Treatment Performed Review abdominal bracing, hinging at hips with sit-stand activity. M7 PT-IP Assessment and Plan Start: 12/03/17 09:57 Freq: NEEDED Status: Active Protocol: Document 12/04/17 11:17 CLB (Rec: 12/04/17 11:46 CLB [id number]) PT Summary Assessment and Plan Potential Rehabilitation Potential Excellent Status of Condition at Evaluation Stable Summary Impairments Pain Balance Bed Mobility Transfers Gait Activity Tolerance Progress Towards Goals Progressing Toward Goals Assessment Summary Pt SBA with sit<>stand and CGA for gait. Pt with increased pain with gait and a feeling her left hip would give way. Family training on proper use of GB with ambulation. Pt will have her and two daughters staying with her once she gets home. Pt seems saft to d/c home with 24/7 assist when medically stable. Goals Bed Mobility Goal Independent Transfer Goal Independent Gait Goal Independent Days to Meet Goals 2 Frequency of Treatment Frequency Of Treatment Twice a Day Treatment Plan Physical Therapy Treatment Plan Bed Mobility Training Transfer Training Gait Training Therapeutic Exercise Post Op Education Discharge Planning Recommendations To Nursing Amount of Assist Needed 1 Person Assist Discharge Recommendations PT Discharge Recommendations Home with Assistance Other Discharge Recommendations Home with .
--- NOTE | 2017-12-04 12:59 | PC.NURSE ---
Day shift: Pt left unit at approx 1300. Has all personal belongings. Paperwork signed and all questions answered. She left w/ 3 family members to go back to [facility] in [employer] car. DALI Altamirano is helping her out to the car via a WC.
== END 2017-12-04 13:21 | disposition home or self-care (01) | DRG 455 ==
PROVIDERS: Admitting Provider Orthopaedic Surgery Orthopaedic Surgery of the Spine; Family Provider Internal Medicine; PCP Internal Medicine; Visit Provider Orthopaedic Surgery Orthopaedic Surgery of the Spine
PROC: 0SG00AJ Fusion of Lumbar Vertebral Joint with Interbody Fusion Device, Posterior Approach, Anterior Column, Open Approach (ICD-10-PCS; principal; 2017-12-02 09:45)
DX: M48.062 Spinal stenosis, lumbar region with neurogenic claudication (principal); M47.26 Other spondylosis with radiculopathy, lumbar region; I73.9 Peripheral vascular disease, unspecified; Z87.891 Personal history of nicotine dependence; M48.07 Spinal stenosis, lumbosacral region; M47.27 Other spondylosis with radiculopathy, lumbosacral region
CPT/HCPCS: 36415; 72100; 76001; 85014; 85018; 94760; 97110; 97116; 97161; 97165; 97530; 97535; C1776; C9290; J0131; J0330; J0690; J1100; J1170; J2250; J2405; J2704; J3010

== ENCOUNTER 2018-04-04 12:15 | Outpatient (RCR) | payer MEDICARE, OTHER, SELFPAY ==
[2017-12-02 14:16] VITALS: BMI 23.8
--- NOTE | 2018-01-23 17:35 | PT.OIE ---
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) Vascular claudication (Chronic 04/20/16) 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) ASVD (arteriosclerotic vascular disease) (Acute) Easy bruisability (Acute) Iliac artery stenosis, bilateral (Acute) Past Surgical History (Last Updated 11/29/17 @ 09:11 by Jess Siegel RN) Hx of sinus surgery (Acute) Status post bilateral cataract extraction (Acute) Provider Visit Care Team Role Provider Type Miguel Ruano MD Primary Care Provider Physician Specialty: Internal Medicine Address: [address] [place] [address], [id number] Email: [email or web address] Sina Jacques MD Attending Provider Physician Specialty: Orthopedic Surgery Address: [address] [place] [address], [address] Email: [email or web address] Physical Therapy Initial Evaluation PT-OP-A Visit Information Start: 01/23/18 17:09 Freq: Status: Active Protocol: Document 01/23/18 17:20 EA (Rec: 01/25/18 07:29 EA [id number]) Out-Patient Physical Therapy Visit Information Visit Information Visit Type Initial Evaluation Visit Start Time 10:30 Visit Stop Time 11:10 Total Visit Minutes 40 Visit Number 1 Evaluation Information Evaluation Date 01/23/18 Precautions Precautions 10 # Lifting restrictions ; low back post surgery pre- cautions PT-OP-B Current Condition Start: 01/23/18 17:09 Freq: Status: Active Protocol: Document 01/23/18 17:20 EA (Rec: 01/25/18 07:29 EA [id number]) Current Condition History of Current Condition Onset Date s/p L4-L5 TLIF w/ POST INSTRUMENTATION Current Complaints Decreased activity tolerance due to low back pain History of Current Condition May/2017 sudden onset of low back pain with radiation to left LLE. Patient underwent L4 -L5 TLIF with posterior instrumentation on 12/02/17. Patient reports compliant with HEP and restrictions. Main complaint today is decreased tolerance to activities in standing due to low back pain and weakness to both LE's and lumbar area. Pt reports Healing went well with no infection. Prior Treatments and Tests 12/21/17 recent follow up to her surgeon. Future Testing and Treatments Planned None identified Treatment Goals Patient/Caregiver Goals Patient wants to get back to PLOF Prior Functional Status Baseline Function- ADL's Independent Baseline Function- Mobility Independent Baseline Function- Gait No limitation prior to the onset of back pain last 2017 Baseline Function- Work/School Retired Baseline Function- Recreation/Hobbies Retired Current Functional Impairments (Reported) Functional Limitations- ADL's Limited in all activites that requires standing and lifting. Functional Limitations- Mobility/Gait unable to walk more than 5 mins Functional Limitations- Recreation/ Unable to perform regular Hobbies daily cooking due to increased in low back pain. PT-OP-C Subjective Start: 01/23/18 17:09 Freq: Status: Active Protocol: Document 01/23/18 17:33 EA (Rec: 01/23/18 17:33 EA [id number]) OP-PT Subjective Patient Comments Patient Comments Patient c/o activities difficulty that requires standing and bending due to pain and low back stiffness with weakness to both LE's. Patient reports wants to get back to his previous level function prior to May which she was active with no limitation. Patient Questionnaires Oswestry Low Back Index Oswestry Score 38% Oswestry Impairment 20 to 39% Impaired (Score 20- 39) OP-PT Pain Assessment Location Lower Back Pain Location Details Bilat lower back Intensity 6 Scale Used Numeric (1 - 10) Description Pulling Tender Tightness Frequency Intermittent Pain Aggravating Factors Changing Position Sitting Walking Bending Lifting Other Pain Alleviating Factors Medication, sitting and rest Patient Stated Pain Goal 02/23 PT-OP-G Mobility & Gait Start: 01/23/18 17:09 Freq: Status: Active Protocol: Document 01/23/18 17:30 EA (Rec: 01/26/18 13:19 EA [id number]) OP Mobility Evaluation Bed Mobility Rolling Indep with mild difficulty Supine to and from Sit INdep with mild difficulty Transfers Sit to Stand Indep Bed to Chair Transfers Indep Functional Movements Lifting and Carrying Restriction to <10 lbs Squats Sit to stand requires both hands for support OP Gait Assessment Gait Gait Assistance Required: Independent Able to Maintain Weight Bearing Status Yes During Gait Assistive Devices Assistive Device None PT-OP-J Posture/Palpation/Skin Start: 01/23/18 17:09 Freq: Status: Active Protocol: Document 01/23/18 17:30 EA (Rec: 01/26/18 13:19 EA [id number]) Posture Evaluation Position Standing L-Spine Posture Flattened Pelvis Posture Posterior Tilted Comments Posture Comments Fair posture Palpation Assessment Location One Palpation Location Paralumbars, QL, thoracolumbar fascia Palpation Findings Soft Tissue Tightness Muscle Guarding Tenderness Palpation Details Grade 2/4 tenderness Skin Assessment Incisional Assessment Incision Appearance/Comments No secondary healling or active signs of infection. Two 2 vertical lines at lumbar region PT-OP-K Range of Motion Start: 01/23/18 17:09 Freq: Status: Active Protocol: Document 01/23/18 17:30 EA (Rec: 01/26/18 13:19 EA [id number]) Lumbar Spine Range of Motion Lumbar Spine Active ROM Limitations Pain Comments Not tested at this time due to precautions Hip Goniometric Range of Motion Hip Measured in Degrees Left Hip ROM WFL Yes Testing Position Supine Right Hip ROM WFL Yes Knee Goniometric Range of Motion Knee Measured in Degrees Right Knee ROM WFL Yes Left Knee ROM WFL Yes PT-OP-L Special Tests Start: 01/23/18 17:09 Freq: Status: Active Protocol: Document 01/23/18 17:30 EA (Rec: 01/26/18 13:19 EA [id number]) Special Tests Lumbar Spine Special Tests Other- 1 Test Results No Lumbar special tests perform at this time due to pre-cautions PT-OP-M Strength Start: 01/23/18 17:09 Freq: Status: Active Protocol: Document 01/23/18 17:34 EA (Rec: 01/23/18 17:38 EA [id number]) Hip Strength Hip Manual Muscle Testing Right Flexion (L2) 3+ Fair+ Extension (S1) 4- Good- Abduction 3+ Fair+ Adduction 4 Good External Rotation 4- Good- Internal Rotation 4- Good- Left Flexion (L2) 3+ Fair+ Extension (S1) 4- Good- Abduction 3+ Fair+ Adduction 4 Good External Rotation 4- Good- Internal Rotation 4- Good- Knee Strength Knee Manual Muscle Testing Right Flexion (S2) 4 Good Extension (L3) 4 Good Left Flexion (S2) 4 Good Extension (L3) 4 Good Ankle/Foot Strength Ankle and Foot Manual Muscle Testing Right Dorsiflexion (L4) 4 Good Plantarflexion (S1) 4 Good Inversion 4 Good Eversion (S1) 4 Good Left Dorsiflexion (L4) 4 Good Inversion 4 Good Eversion (S1) 4 Good PT-OP-Q Treatments Start: 01/23/18 17:09 Freq: Status: Active Protocol: Document 01/23/18 17:34 EA (Rec: 01/23/18 17:38 EA [id number]) Self-Care/Home Management Treatment Education Patient Education Body Mechanics Fall Risk Home Exercise Program Joint Protection Pain Management Posture Safety PT-OP-T Assessment and Plan Start: 01/23/18 17:09 Freq: Status: Active Protocol: Document 01/23/18 17:34 EA (Rec: 01/23/18 17:38 EA [id number]) Physical Therapy Assessment Rehab Potential Rehabilitation Potential Good Evaluation Complexity Number of Personal Factors/Comorbidities 1-2 Number of Body Systems Impaired 3 Clinical Presentation at Evaluation Stable Impairments Impairments Functional Activities Functional Mobility Gait Pain Posture ROM Soft Tissue Mobility Strength Other Concerns Fall Risk No Goals Five Impairment No HEP in place Fashion Coordinator Goal (LTG) Patient will learn HEP independently and safely. LTG Duration 3 wks Four Impairment Impaired Lumbosacral ROM Fashion Coordinator Goal (LTG) Patient will exhibit lumbosacral ROM to within functional range to enhance functioanal lifting and other activities that requires lumbosacral ROM. LTG Duration 4 wks Three Impairment Inability to lift perform floor to waist > 10 lbs of weight Retirement Goal (LTG) Patient will perform floor to waist lift with good body mechanics > 10 lbs with no increase in low back symptoms LTG Duration 4 wks Two Impairment Impaired walking tolerance ( less than 5 mins) Retirement Goal (LTG) Patient will ambulate with no increase in low back symptoms more than 10 mins LTG Duration 4 wks One Impairment Low back Oswestry impairment scale of 38% impairment Retirement Goal (LTG) Patient will have Low back Oswestry results of < 15% impairment LTG Duration 4 wks Assessment Summary Assessment Pleasant 77 y/o F patient who is s/p L4-L5 TLIF w/ post instrumentation 12/02/17, presented today with limited standing and walking tolerance due to low back pain and back stiffness. Assessment reveals decreased LE's strength, standing and walking tolerance , low back muscular stiffness with decreased lumbosacral ROM , muscle guarding, and grade 2 /4 tenderness at lumbar region upon palpation. Reflexes and sensory tests to both LE's are WFL and no signs of neurologic deficits. Due to above mentioned deficits patient unable to perform tasks that is normal prior to current condition. In my professional opinion, patient would benefit with skilled PT to address the aforementioned issues. Physical Therapy Plan Frequency and Duration Frequency of Treatment 2x/Week Duration of Treatment 8 wks Plan of Care Start Date 01/23/18 Plan of Care End Date 03/20/18 Therapeutic Interventions Therapeutic Interventions Gait Training Home Exercise Program Joint Mobilizations Manual Therapy Patient/Caregiver Education Self-Care/Home Management Soft Tissue Mobilization Taping Therapeutic Activities Therapeutic Exercises Modalities Cold Pack/Ice Massage Electric Stimulation Hot Packs Paraffin Bath Ultrasound Next Visit Focus/Plan Next Note Type Treatment Note Next Visit Plan Decreased low back pain: manual, modalities; re-educate with pre-cautions
--- NOTE | 2018-01-23 17:37 | PT.OPPOC ---
Current Diagnoses Other spondylosis with radiculopathy, lumbar region (01/23/18) Spinal stenosis, lumbar region with neurogenic claudication (01/23/18) Provider Visit Care Team Role Provider Type Miguel Ruano MD Primary Care Provider Physician Specialty: Internal Medicine Address: [address] [place] [address], [address] Email: [email or web address] Sina Jacques MD Attending Provider Physician Specialty: Orthopedic Surgery Address: [address] [place] [address], [address] Email: [email or web address] Plan Of Care PT-OP-T Assessment and Plan Start: 01/23/18 17:09 Freq: Status: Active Protocol: Document 01/23/18 17:34 EA (Rec: 01/23/18 17:38 EA [id number]) Physical Therapy Assessment Rehab Potential Rehabilitation Potential Good Evaluation Complexity Number of Personal Factors/Comorbidities 1-2 Number of Body Systems Impaired 3 Clinical Presentation at Evaluation Stable Impairments Impairments Functional Activities Functional Mobility Gait Pain Posture ROM Soft Tissue Mobility Strength Other Concerns Fall Risk No Goals Five Impairment No HEP in place Fdc Goal (LTG) Patient will learn HEP independently and safely. LTG Duration 3 wks Four Impairment Impaired Lumbosacral ROM Yoghurt Maker Goal (LTG) Patient will exhibit lumbosacral ROM to within functional range to enhance functioanal lifting and other activites that requires lumbosacral ROM. LTG Duration 4 wks Three Impairment Inability to lift perform floor to waist > 10 lbs of weight Fdc Goal (LTG) Patient will perform floor to waist lift with good body mechanics > 10 lbs with no increase in low back symptoms LTG Duration 4 wks Two Impairment Impaired walking tolerance ( less than 5 mins) Yoghurt Maker Goal (LTG) Patient will ambulate with no increase in low back symptoms more than 10 mins LTG Duration 4 wks One Impairment Low back Oswestry impairment scale of 38% impairment Fdc Goal (LTG) Patient will have Low back Oswestry results of < 15% impairment LTG Duration 4 wks Assessment Summary Assessment Pleasant 77 y/o F patient who is s/p L4-L5 TLIF w/ post instrumentation 12/02/17, presented today with limited standing and walking tolerance due to low back pain and back stiffness. Assessment reveals decreased LE's strength, standing and walking tolerance , low back muscular stiffness with decreased lumbosacral ROM , muscle guarding, and grade 2 /4 tenderness at lumbar region upon palpation. Reflexes and sensory tests to both LE's are WFL and no signs of neurologic deficits. Due to above mentioned deficits patient unable to perform tasks that is normal prior to current condition. In my professional opinion, patient would benefit with skilled PT to address the aforementioned issues. Physical Therapy Plan Frequency and Duration Frequency of Treatment 2x/Week Duration of Treatment 8 wks Plan of Care Start Date 01/23/18 Plan of Care End Date 03/20/18 Therapeutic Interventions Therapeutic Interventions Gait Training Home Exercise Program Joint Mobilizations Manual Therapy Patient/Caregiver Education Self-Care/Home Management Soft Tissue Mobilization Taping Therapeutic Activities Therapeutic Exercises Modalities Cold Pack/Ice Massage Electric Stimulation Hot Packs Paraffin Bath Ultrasound Next Visit Focus/Plan Next Note Type Treatment Note Next Visit Plan Decreased low back pain: manual, modalities; re-educate with pre-cautions Plan of Care Dates Plan of Care Start Date 01/23/18 Plan of Care End Date 03/20/18 Please Sign and Return: I have reviewed this Plan of Care and certify that the skilled therapy services above are required to meet the patient?s needs. Physician Signature Date Printed Name and Credentials Clinical Instructor Signature Printed Name and Credentials
--- NOTE | 2018-01-27 10:30 | PT.OTN ---
Current Diagnoses Other spondylosis with radiculopathy, lumbar region (01/27/18) Spinal stenosis, lumbar region with neurogenic claudication (01/27/18) Physical Therapy Treatment Note PT-OP-A Visit Information Start: 01/23/18 17:09 Freq: Status: Active Protocol: Document 01/27/18 10:30 RCC (Rec: 01/29/18 13:34 RCC [id number]) Out-Patient Physical Therapy Visit Information Visit Information Visit Type Treatment Note Visit Start Time 09:45 Visit Stop Time 10:30 Total Visit Minutes 45 Visit Number 2 Number of RABBET OPERATOR Visits 0 Evaluation Information Evaluation Date 01/23/18 Precautions Precautions 10 # Lifting restrictions ; low back post surgery pre- cautions PT-OP-B Current Condition Start: 01/23/18 17:09 Freq: Status: Active Protocol: Document 01/23/18 17:20 EA (Rec: 01/25/18 07:29 EA [id number]) Current Condition History of Current Condition Onset Date s/p L4-L5 TLIF w/ POST INSTRUMENTATION Current Complaints Decreased activity tolerance due to low back pain History of Current Condition May/2017 sudden onset of low back pain with radiation to left LLE. Patient underwent L4 -L5 TLIF with posterior instrumentation on 12/02/17. Patient reports compliant with HEP and restrictions. Main complaint today is decreased tolerance to activities in standing due to low back pain and weakness to both LE's and lumbar area. Pt reports Healing went well with no infection. Prior Treatments and Tests 12/21/17 recent follow up to her surgeon. Future Testing and Treatments Planned None identified Treatment Goals Patient/Caregiver Goals Patient wants to get back to PLOF Prior Functional Status Baseline Function- ADL's Independent Baseline Function- Mobility Independent Baseline Function- Gait No limitation prior to the onset of back pain last 2017 Baseline Function- Work/School Retired Baseline Function- Recreation/Hobbies Retired Current Functional Impairments (Reported) Functional Limitations- ADL's Limited in all activites that requires standing and lifting. Functional Limitations- Mobility/Gait unable to walk more than 5 mins Functional Limitations- Recreation/ Unable to perform regular Hobbies daily cooking due to increased in low back pain. PT-OP-C Subjective Start: 01/23/18 17:09 Freq: Status: Active Protocol: Document 01/27/18 10:30 RCC (Rec: 01/29/18 13:34 RCC [email or web address]) OP-PT Subjective Patient Comments Patient Comments Pt states things are improving slowly, she feels like her legs are very weak. PT-OP-G Mobility & Gait Start: 01/23/18 17:09 Freq: Status: Active Protocol: Document 01/23/18 17:30 EA (Rec: 01/26/18 13:19 EA [id number]) OP Mobility Evaluation Bed Mobility Rolling Indep with mild difficulty Supine to and from Sit INdep with mild difficulty Transfers Sit to Stand Indep Bed to Chair Transfers Indep Functional Movements Lifting and Carrying Restriction to <10 lbs Squats Sit to stand requires both hands for support OP Gait Assessment Gait Gait Assistance Required: Independent Able to Maintain Weight Bearing Status Yes During Gait Assistive Devices Assistive Device None PT-OP-J Posture/Palpation/Skin Start: 01/23/18 17:09 Freq: Status: Active Protocol: Document 01/23/18 17:30 EA (Rec: 01/26/18 13:19 EA [id number]) Posture Evaluation Position Standing L-Spine Posture Flattened Pelvis Posture Posterior Tilted Comments Posture Comments Fair posture Palpation Assessment Location One Palpation Location Paralumbars, QL, thoracolumbars fascia Palpation Findings Soft Tissue Tightness Muscle Guarding Tenderness Palpation Details Grade 2/4 tenderness Skin Assessment Incisional Assessment Incision Appearance/Comments No secondary healling or active signs of infection. Two 2 bvertica lines at lumbar region PT-OP-K Range of Motion Start: 01/23/18 17:09 Freq: Status: Active Protocol: Document 01/23/18 17:30 EA (Rec: 01/26/18 13:19 EA [id number]) Lumbar Spine Range of Motion Lumbar Spine Active ROM Limitations Pain Comments Not tested at this time due to precautions Hip Goniometric Range of Motion Hip Measured in Degrees Left Hip ROM WFL Yes Testing Position Supine Right Hip ROM WFL Yes Knee Goniometric Range of Motion Knee Measured in Degrees Right Knee ROM WFL Yes Left Knee ROM WFL Yes PT-OP-L Special Tests Start: 01/23/18 17:09 Freq: Status: Active Protocol: Document 01/23/18 17:30 EA (Rec: 01/26/18 13:19 EA [id number]) Special Tests Lumbar Spine Special Tests Other- 1 Test Results No Lumbar special tests perform at this time due to pre-cautions PT-OP-M Strength Start: 01/23/18 17:09 Freq: Status: Active Protocol: Document 01/23/18 17:34 EA (Rec: 01/23/18 17:38 EA [id number]) Hip Strength Hip Manual Muscle Testing Right Flexion (L2) 3+ Fair+ Extension (S1) 4- Good- Abduction 3+ Fair+ Adduction 4 Good External Rotation 4- Good- Internal Rotation 4- Good- Left Flexion (L2) 3+ Fair+ Extension (S1) 4- Good- Abduction 3+ Fair+ Adduction 4 Good External Rotation 4- Good- Internal Rotation 4- Good- Knee Strength Knee Manual Muscle Testing Right Flexion (S2) 4 Good Extension (L3) 4 Good Left Flexion (S2) 4 Good Extension (L3) 4 Good Ankle/Foot Strength Ankle and Foot Manual Muscle Testing Right Dorsiflexion (L4) 4 Good Plantarflexion (S1) 4 Good Inversion 4 Good Eversion (S1) 4 Good Left Dorsiflexion (L4) 4 Good Inversion 4 Good Eversion (S1) 4 Good PT-OP-Q Treatments Start: 01/23/18 17:09 Freq: Status: Active Protocol: Document 01/27/18 10:30 RCC (Rec: 01/29/18 13:34 RCC [email or web address]) Cardio Equipment Recumbent Elliptical ([employer]) Duration (Minutes) 5 Resistance 1 Therapeutic Exercises Supine Exercises hip adduction Supine Exercise Name isometric hip adduction with TA activation Side bilateral Reps/Minutes 10 Comments 5 sec hold gluteal squeezes Side bilateral Reps/Minutes 10 Comments 5 sec hold TA activation Supine Exercise Name transverse abdominal activation Side bilateral Reps/Minutes 10 Comments 5 sec hold Manual Therapy Treatment Soft Tissue Mobilization paraspinals, QL, gluteals Mobilization Type Rolling Intensity/Depth Superficial Body Position Sidelying Comments bilateral scar tissue Body Location lumbar scar tissue Mobilization Type Rolling Intensity/Depth Moderate Body Position Sidelying PT-OP-R Modalities Start: 01/23/18 17:09 Freq: Status: Active Protocol: Document 01/27/18 10:30 RCC (Rec: 01/29/18 13:34 RCC [email or web address]) Hot Pack/Cold Pack Treatment Cold Pack Location lumbar Patient Position Hooklying Treatment Duration (minutes) 10 Comments extra layer; bolster for LEs PT-OP-T Assessment and Plan Start: 01/23/18 17:09 Freq: Status: Active Protocol: Document 01/27/18 10:30 RCC (Rec: 01/29/18 13:34 RCC [email or web address]) Physical Therapy Assessment Assessment Summary Assessment Pt required increased tactile and verbal cuing for transverse abdominal activation, with quick fatigue of musculature with each activity but no c/o pain. She tolerated Biodex without pain, but legs were fatigued as well. Physical Therapy Plan Frequency and Duration Frequency of Treatment 2x/Week Duration of Treatment 8 wks Plan of Care Start Date 01/23/18 Plan of Care End Date 03/20/18 Next Visit Focus/Plan Next Note Type Treatment Note Next Visit Plan advance core stabilization gently, initiate LE strengthening as tolerated.
--- NOTE | 2018-02-01 14:28 | PT.OTN ---
Current Diagnoses Other spondylosis with radiculopathy, lumbar region (02/01/18) Spinal stenosis, lumbar region with neurogenic claudication (02/01/18) Physical Therapy Treatment Note PT-OP-A Visit Information Start: 01/23/18 17:09 Freq: Status: Active Protocol: Document 02/01/18 13:05 EA (Rec: 02/01/18 13:14 EA [id number]) Out-Patient Physical Therapy Visit Information Visit Information Visit Type Treatment Note Visit Start Time 10:30 Visit Stop Time 11:20 PT-OP-B Current Condition Start: 01/23/18 17:09 Freq: Status: Active Protocol: Document 01/23/18 17:20 EA (Rec: 01/25/18 07:29 EA [id number]) Current Condition History of Current Condition Onset Date s/p L4-L5 TLIF w/ POST INSTRUMENTATION Current Complaints Decreased activity tolerance due to low back pain History of Current Condition May/2017 sudden onset of low back pain with radiation to left LLE. Patient underwent L4 -L5 TLIF with posterior instrumentation on 12/02/17. Patient reports compliant with HEP and restrictions. Main complaint today is decreased tolerance to activities in standing due to low back pain and weakness to both LE's and lumbar area. Pt reports Healing went well with no infection. Prior Treatments and Tests 12/21/17 recent follow up to her surgeon. Future Testing and Treatments Planned None identified Treatment Goals Patient/Caregiver Goals Patient wants to get back to PLOF Prior Functional Status Baseline Function- ADL's Independent Baseline Function- Mobility Independent Baseline Function- Gait No limitation prior to the onset of back pain last 2017 Baseline Function- Work/School Retired Baseline Function- Recreation/Hobbies Retired Current Functional Impairments (Reported) Functional Limitations- ADL's Limited in all activites that requires standing and lifting. Functional Limitations- Mobility/Gait unable to walk more than 5 mins Functional Limitations- Recreation/ Unable to perform regular Hobbies daily cooking due to increased in low back pain. PT-OP-C Subjective Start: 01/23/18 17:09 Freq: Status: Active Protocol: Document 02/01/18 13:05 EA (Rec: 02/01/18 13:14 EA [id number]) OP-PT Subjective Patient Comments Patient Comments Pt reports unable to walk outside due to pouring rain and wind everyday. PT-OP-G Mobility & Gait Start: 01/23/18 17:09 Freq: Status: Active Protocol: Document 01/23/18 17:30 EA (Rec: 01/26/18 13:19 EA [id number]) OP Mobility Evaluation Bed Mobility Rolling Indep with mild difficulty Supine to and from Sit INdep with mild difficulty Transfers Sit to Stand Indep Bed to Chair Transfers Indep Functional Movements Lifting and Carrying Restriction to <10 lbs Squats Sit to stand requires both hands for support OP Gait Assessment Gait Gait Assistance Required: Independent Able to Maintain Weight Bearing Status Yes During Gait Assistive Devices Assistive Device None PT-OP-J Posture/Palpation/Skin Start: 01/23/18 17:09 Freq: Status: Active Protocol: Document 01/23/18 17:30 EA (Rec: 01/26/18 13:19 EA [id number]) Posture Evaluation Position Standing L-Spine Posture Flattened Pelvis Posture Posterior Tilted Comments Posture Comments Fair posture Palpation Assessment Location One Palpation Location Paralumbars, QL, thoracolumbars fascia Palpation Findings Soft Tissue Tightness Muscle Guarding Tenderness Palpation Details Grade 2/4 tenderness Skin Assessment Incisional Assessment Incision Appearance/Comments No secondary healling or active signs of infection. Two 2 bvertica lines at lumbar region PT-OP-K Range of Motion Start: 01/23/18 17:09 Freq: Status: Active Protocol: Document 01/23/18 17:30 EA (Rec: 01/26/18 13:19 EA [id number]) Lumbar Spine Range of Motion Lumbar Spine Active ROM Limitations Pain Comments Not tested at this time due to precautions Hip Goniometric Range of Motion Hip Measured in Degrees Left Hip ROM WFL Yes Testing Position Supine Right Hip ROM WFL Yes Knee Goniometric Range of Motion Knee Measured in Degrees Right Knee ROM WFL Yes Left Knee ROM WFL Yes PT-OP-L Special Tests Start: 01/23/18 17:09 Freq: Status: Active Protocol: Document 01/23/18 17:30 EA (Rec: 01/26/18 13:19 EA [id number]) Special Tests Lumbar Spine Special Tests Other- 1 Test Results No Lumbar special tests perform at this time due to pre-cautions PT-OP-M Strength Start: 01/23/18 17:09 Freq: Status: Active Protocol: Document 01/23/18 17:34 EA (Rec: 01/23/18 17:38 EA [id number]) Hip Strength Hip Manual Muscle Testing Right Flexion (L2) 3+ Fair+ Extension (S1) 4- Good- Abduction 3+ Fair+ Adduction 4 Good External Rotation 4- Good- Internal Rotation 4- Good- Left Flexion (L2) 3+ Fair+ Extension (S1) 4- Good- Abduction 3+ Fair+ Adduction 4 Good External Rotation 4- Good- Internal Rotation 4- Good- Knee Strength Knee Manual Muscle Testing Right Flexion (S2) 4 Good Extension (L3) 4 Good Left Flexion (S2) 4 Good Extension (L3) 4 Good Ankle/Foot Strength Ankle and Foot Manual Muscle Testing Right Dorsiflexion (L4) 4 Good Plantarflexion (S1) 4 Good Inversion 4 Good Eversion (S1) 4 Good Left Dorsiflexion (L4) 4 Good Inversion 4 Good Eversion (S1) 4 Good PT-OP-Q Treatments Start: 01/23/18 17:09 Freq: Status: Active Protocol: Document 02/01/18 13:05 EA (Rec: 02/01/18 13:14 EA [id number]) Cardio Equipment Recumbent Elliptical ([employer]) Duration (Minutes) 5 Resistance 1 Therapeutic Exercises Supine Exercises 1 Supine Exercise Name SLR Side bilateral Comments with TA activation hip adduction Supine Exercise Name isometric hip adduction with TA activation Side bilateral Reps/Minutes 10 Comments 5 sec hold gluteal squeezes Side bilateral Reps/Minutes 10 Comments 5 sec hold TA activation Supine Exercise Name transverse abdominal activation Side bilateral Reps/Minutes 10 Comments 5 sec hold Standing Exercises 1 Standing Exercise Name wall squat with TA activation Reps/Minutes x 10 reps Comments 30deg knee bent Manual Therapy Treatment Soft Tissue Mobilization paraspinals, QL, gluteals Mobilization Type Rolling Intensity/Depth Superficial Body Position Sidelying Comments bilateral PT-OP-R Modalities Start: 01/23/18 17:09 Freq: Status: Active Protocol: Document 02/01/18 13:05 EA (Rec: 02/01/18 13:14 EA [id number]) Electric Stimulation Electric Stimulation Interferential Current (IFC) Body Location Left paralumabrs upper gluteals Duration (Minutes) 15 Combined With Heat/Cold Hot Pack PT-OP-T Assessment and Plan Start: 01/23/18 17:09 Freq: Status: Active Protocol: Document 02/01/18 13:05 KATIA (Rec: 02/01/18 13:14 KATIA [id number]) Physical Therapy Assessment Assessment Summary Assessment Tolerated treatment well. Cues during wall Physical Therapy Plan is needed. Next Visit Focus/Plan Next Note Type Treatment Note Next Visit Plan advance core stabilization gently, initiate LE strengthening as tolerated.
--- NOTE | 2018-02-13 12:59 | PT.OTN ---
Current Diagnoses Other spondylosis with radiculopathy, lumbar region (02/13/18) Spinal stenosis, lumbar region with neurogenic claudication (02/13/18) Physical Therapy Treatment Note PT-OP-A Visit Information Start: 01/23/18 17:09 Freq: Status: Active Protocol: Document 02/13/18 10:33 EA (Rec: 02/13/18 10:39 EA [id number]) Out-Patient Physical Therapy Visit Information Visit Information Visit Type Treatment Note Visit Start Time 10:30 Visit Stop Time 11:15 Total Visit Minutes 45 Visit Number 4 Number of DRENCHER Visits 0 PT-OP-B Current Condition Start: 01/23/18 17:09 Freq: Status: Active Protocol: Document 01/23/18 17:20 EA (Rec: 01/25/18 07:29 EA [id number]) Current Condition History of Current Condition Onset Date s/p L4-L5 TLIF w/ POST INSTRUMENTATION Current Complaints Decreased activity tolerance due to low back pain History of Current Condition May/2017 sudden onset of low back pain with radiation to left LLE. Patient underwent L4 -L5 TLIF with posterior instrumentation on 12/02/17. Patient reports compliant with HEP and restrictions. Main complaint today is decreased tolerance to activities in standing due to low back pain and weakness to both LE's and lumbar area. Pt reports Healing went well with no infection. Prior Treatments and Tests 12/21/17 recent follow up to her surgeon. Future Testing and Treatments Planned None identified Treatment Goals Patient/Caregiver Goals Patient wants to get back to PLOF Prior Functional Status Baseline Function- ADL's Independent Baseline Function- Mobility Independent Baseline Function- Gait No limitation prior to the onset of back pain last 2017 Baseline Function- Work/School Retired Baseline Function- Recreation/Hobbies Retired Current Functional Impairments (Reported) Functional Limitations- ADL's Limited in all activites that requires standing and lifting. Functional Limitations- Mobility/Gait unable to walk more than 5 mins Functional Limitations- Recreation/ Unable to perform regular Hobbies daily cooking due to increased in low back pain. PT-OP-C Subjective Start: 01/23/18 17:09 Freq: Status: Active Protocol: Document 02/13/18 10:33 EA (Rec: 02/13/18 10:39 EA [id number]) OP-PT Subjective Patient Comments Patient Comments Pt states I think I'm doing pretty goo physically Patient Reported Progress Improving PT-OP-G Mobility & Gait Start: 01/23/18 17:09 Freq: Status: Active Protocol: Document 01/23/18 17:30 EA (Rec: 01/26/18 13:19 EA [id number]) OP Mobility Evaluation Bed Mobility Rolling Indep with mild difficulty Supine to and from Sit INdep with mild difficulty Transfers Sit to Stand Indep Bed to Chair Transfers Indep Functional Movements Lifting and Carrying Restriction to <10 lbs Squats Sit to stand requires both hands for support OP Gait Assessment Gait Gait Assistance Required: Independent Able to Maintain Weight Bearing Status Yes During Gait Assistive Devices Assistive Device None PT-OP-J Posture/Palpation/Skin Start: 01/23/18 17:09 Freq: Status: Active Protocol: Document 01/23/18 17:30 EA (Rec: 01/26/18 13:19 EA [id number]) Posture Evaluation Position Standing L-Spine Posture Flattened Pelvis Posture Posterior Tilted Comments Posture Comments Fair posture Palpation Assessment Location One Palpation Location Paralumbars, QL, thoracolumbars fascia Palpation Findings Soft Tissue Tightness Muscle Guarding Tenderness Palpation Details Grade 2/4 tenderness Skin Assessment Incisional Assessment Incision Appearance/Comments No secondary healling or active signs of infection. Two 2 bvertica lines at lumbar region PT-OP-K Range of Motion Start: 01/23/18 17:09 Freq: Status: Active Protocol: Document 01/23/18 17:30 EA (Rec: 01/26/18 13:19 EA [id number]) Lumbar Spine Range of Motion Lumbar Spine Active ROM Limitations Pain Comments Not tested at this time due to precautions Hip Goniometric Range of Motion Hip Measured in Degrees Left Hip ROM WFL Yes Testing Position Supine Right Hip ROM WFL Yes Knee Goniometric Range of Motion Knee Measured in Degrees Right Knee ROM WFL Yes Left Knee ROM WFL Yes PT-OP-L Special Tests Start: 01/23/18 17:09 Freq: Status: Active Protocol: Document 01/23/18 17:30 EA (Rec: 01/26/18 13:19 EA [id number]) Special Tests Lumbar Spine Special Tests Other- 1 Test Results No Lumbar special tests perform at this time due to pre-cautions PT-OP-M Strength Start: 01/23/18 17:09 Freq: Status: Active Protocol: Document 01/23/18 17:34 EA (Rec: 01/23/18 17:38 EA [id number]) Hip Strength Hip Manual Muscle Testing Right Flexion (L2) 3+ Fair+ Extension (S1) 4- Good- Abduction 3+ Fair+ Adduction 4 Good External Rotation 4- Good- Internal Rotation 4- Good- Left Flexion (L2) 3+ Fair+ Extension (S1) 4- Good- Abduction 3+ Fair+ Adduction 4 Good External Rotation 4- Good- Internal Rotation 4- Good- Knee Strength Knee Manual Muscle Testing Right Flexion (S2) 4 Good Extension (L3) 4 Good Left Flexion (S2) 4 Good Extension (L3) 4 Good Ankle/Foot Strength Ankle and Foot Manual Muscle Testing Right Dorsiflexion (L4) 4 Good Plantarflexion (S1) 4 Good Inversion 4 Good Eversion (S1) 4 Good Left Dorsiflexion (L4) 4 Good Inversion 4 Good Eversion (S1) 4 Good PT-OP-Q Treatments Start: 01/23/18 17:09 Freq: Status: Active Protocol: Document 02/13/18 10:33 EA (Rec: 02/13/18 10:39 EA [id number]) Gym Equipment Shuttle Recovery Unilateral Squats Resistance 25# Shuttle Recovery Platform Stable Reps/Time x 15 reps Therapeutic Exercises Supine Exercises 1 Supine Exercise Name SLR Side bilateral Comments with TA activation hip adduction Supine Exercise Name isometric hip adduction with TA activation Side bilateral Reps/Minutes 10 Comments 5 sec hold gluteal squeezes Side bilateral Reps/Minutes 10 Comments 5 sec hold TA activation Supine Exercise Name PPT with head lift Reps/Minutes x 10 reps x 2 sets Standing Exercises 2 Standing Exercise Name side step squat with heel raises Side bilateral Reps/Minutes x 8 ft lines x 2 1 Standing Exercise Name wall squat with TA activation Reps/Minutes x 10 reps Comments 30deg knee bent Manual Therapy Treatment Soft Tissue Mobilization paraspinals, QL, gluteals Mobilization Type Rolling Intensity/Depth Superficial Body Position Sidelying Comments bilateral PT-OP-R Modalities Start: 01/23/18 17:09 Freq: Status: Active Protocol: Document 02/13/18 10:33 EA (Rec: 02/13/18 10:39 EA [id number]) Electric Stimulation Electric Stimulation Interferential Current (IFC) Body Location Left paralumabrs upper gluteals Duration (Minutes) 15 Combined With Heat/Cold Hot Pack PT-OP-T Assessment and Plan Start: 01/23/18 17:09 Freq: Status: Active Protocol: Document 02/13/18 10:33 EA (Rec: 02/13/18 10:39 EA [id number]) Physical Therapy Assessment Assessment Summary Assessment Pt had improved mobility with decreased discomfort. Physical Therapy Plan Next Visit Focus/Plan Next Note Type Treatment Note Next Visit Plan Cont with current plan; progress as tolerated
--- NOTE | 2018-02-16 12:19 | PT.OTN ---
Current Diagnoses Other spondylosis with radiculopathy, lumbar region (02/16/18) Spinal stenosis, lumbar region with neurogenic claudication (02/16/18) Physical Therapy Treatment Note PT-OP-A Visit Information Start: 01/23/18 17:09 Freq: Status: Active Protocol: Document 02/16/18 12:13 EA (Rec: 02/16/18 12:19 EA [id number]) Out-Patient Physical Therapy Visit Information Visit Information Visit Type Treatment Note Visit Start Time 10:30 Visit Stop Time 11:15 Total Visit Minutes 45 Visit Number 5 Number of BLOCKER AND POLISHER GOLD WHEEL Visits 0 PT-OP-B Current Condition Start: 01/23/18 17:09 Freq: Status: Active Protocol: Document 01/23/18 17:20 EA (Rec: 01/25/18 07:29 EA [id number]) Current Condition History of Current Condition Onset Date s/p L4-L5 TLIF w/ POST INSTRUMENTATION Current Complaints Decreased activity tolerance due to low back pain History of Current Condition May/2017 sudden onset of low back pain with radiation to left LLE. Patient underwent L4 -L5 TLIF with posterior instrumentation on 12/02/17. Patient reports compliant with HEP and restrictions. Main complaint today is decreased tolerance to activities in standing due to low back pain and weakness to both LE's and lumbar area. Pt reports Healing went well with no infection. Prior Treatments and Tests 12/21/17 recent follow up to her surgeon. Future Testing and Treatments Planned None identified Treatment Goals Patient/Caregiver Goals Patient wants to get back to PLOF Prior Functional Status Baseline Function- ADL's Independent Baseline Function- Mobility Independent Baseline Function- Gait No limitation prior to the onset of back pain last 2017 Baseline Function- Work/School Retired Baseline Function- Recreation/Hobbies Retired Current Functional Impairments (Reported) Functional Limitations- ADL's Limited in all activites that requires standing and lifting. Functional Limitations- Mobility/Gait unable to walk more than 5 mins Functional Limitations- Recreation/ Unable to perform regular Hobbies daily cooking due to increased in low back pain. PT-OP-C Subjective Start: 01/23/18 17:09 Freq: Status: Active Protocol: Document 02/16/18 12:13 EA (Rec: 02/16/18 12:19 EA [id number]) OP-PT Subjective Patient Comments Patient Comments Patient reports low back pain increased after doing HEP; states she has to take pain meds and place ICE to low back to decrease pain. PT-OP-G Mobility & Gait Start: 01/23/18 17:09 Freq: Status: Active Protocol: Document 01/23/18 17:30 EA (Rec: 01/26/18 13:19 EA [id number]) OP Mobility Evaluation Bed Mobility Rolling Indep with mild difficulty Supine to and from Sit INdep with mild difficulty Transfers Sit to Stand Indep Bed to Chair Transfers Indep Functional Movements Lifting and Carrying Restriction to <10 lbs Squats Sit to stand requires both hands for support OP Gait Assessment Gait Gait Assistance Required: Independent Able to Maintain Weight Bearing Status Yes During Gait Assistive Devices Assistive Device None PT-OP-J Posture/Palpation/Skin Start: 01/23/18 17:09 Freq: Status: Active Protocol: Document 01/23/18 17:30 EA (Rec: 01/26/18 13:19 EA [id number]) Posture Evaluation Position Standing L-Spine Posture Flattened Pelvis Posture Posterior Tilted Comments Posture Comments Fair posture Palpation Assessment Location One Palpation Location Paralumbars, QL, thoracolumbars fascia Palpation Findings Soft Tissue Tightness Muscle Guarding Tenderness Palpation Details Grade 2/4 tenderness Skin Assessment Incisional Assessment Incision Appearance/Comments No secondary healling or active signs of infection. Two 2 bvertica lines at lumbar region PT-OP-K Range of Motion Start: 01/23/18 17:09 Freq: Status: Active Protocol: Document 01/23/18 17:30 EA (Rec: 01/26/18 13:19 EA [id number]) Lumbar Spine Range of Motion Lumbar Spine Active ROM Limitations Pain Comments Not tested at this time due to precautions Hip Goniometric Range of Motion Hip Measured in Degrees Left Hip ROM WFL Yes Testing Position Supine Right Hip ROM WFL Yes Knee Goniometric Range of Motion Knee Measured in Degrees Right Knee ROM WFL Yes Left Knee ROM WFL Yes PT-OP-L Special Tests Start: 01/23/18 17:09 Freq: Status: Active Protocol: Document 01/23/18 17:30 EA (Rec: 01/26/18 13:19 EA [id number]) Special Tests Lumbar Spine Special Tests Other- 1 Test Results No Lumbar special tests perform at this time due to pre-cautions PT-OP-M Strength Start: 01/23/18 17:09 Freq: Status: Active Protocol: Document 01/23/18 17:34 EA (Rec: 01/23/18 17:38 EA [id number]) Hip Strength Hip Manual Muscle Testing Right Flexion (L2) 3+ Fair+ Extension (S1) 4- Good- Abduction 3+ Fair+ Adduction 4 Good External Rotation 4- Good- Internal Rotation 4- Good- Left Flexion (L2) 3+ Fair+ Extension (S1) 4- Good- Abduction 3+ Fair+ Adduction 4 Good External Rotation 4- Good- Internal Rotation 4- Good- Knee Strength Knee Manual Muscle Testing Right Flexion (S2) 4 Good Extension (L3) 4 Good Left Flexion (S2) 4 Good Extension (L3) 4 Good Ankle/Foot Strength Ankle and Foot Manual Muscle Testing Right Dorsiflexion (L4) 4 Good Plantarflexion (S1) 4 Good Inversion 4 Good Eversion (S1) 4 Good Left Dorsiflexion (L4) 4 Good Inversion 4 Good Eversion (S1) 4 Good PT-OP-Q Treatments Start: 01/23/18 17:09 Freq: Status: Active Protocol: Document 02/16/18 12:13 EA (Rec: 02/16/18 12:19 EA [id number]) Therapeutic Exercises Supine Exercises 1 Supine Exercise Name SLR Side bilateral Comments with TA activation hip adduction Supine Exercise Name isometric hip adduction with TA activation Side bilateral Reps/Minutes 10 Comments 5 sec hold TA activation Supine Exercise Name PPT with partial head lift Reps/Minutes x 10 reps x 2 sets Standing Exercises 2 Standing Exercise Name side step squat with heel raises Side bilateral Reps/Minutes x 8 ft lines x 2 1 Standing Exercise Name wall squat with TA activation Reps/Minutes x 10 reps x 2 Comments 30deg knee bent Manual Therapy Treatment Soft Tissue Mobilization paraspinals, QL, gluteals Mobilization Type Rolling Intensity/Depth Superficial Body Position Sidelying Comments bilateral PT-OP-R Modalities Start: 01/23/18 17:09 Freq: Status: Active Protocol: Document 02/16/18 12:13 EA (Rec: 02/16/18 12:19 EA [id number]) Electric Stimulation Electric Stimulation Interferential Current (IFC) Body Location Left paralumabrs upper gluteals Duration (Minutes) 15 Intensity 14 Patient Position Sitting Combined With Heat/Cold Cold Pack PT-OP-T Assessment and Plan Start: 01/23/18 17:09 Freq: Status: Active Protocol: Document 02/16/18 12:13 EA (Rec: 02/16/18 12:19 EA [id number]) Physical Therapy Assessment Assessment Summary Assessment Pt tolerated treatment but discomfort noted with supine exercises. Patient educated with demonstration of body mechanics, resting position and pre-cautions. Physical Therapy Plan Next Visit Focus/Plan Next Note Type Treatment Note Next Visit Plan Cont. with current plan and progress as tolerated
--- NOTE | 2018-02-21 14:28 | PT.OTN ---
Current Diagnoses Other spondylosis with radiculopathy, lumbar region (02/21/18) Spinal stenosis, lumbar region with neurogenic claudication (02/21/18) Physical Therapy Treatment Note PT-OP-A Visit Information Start: 01/23/18 17:09 Freq: Status: Active Protocol: Document 02/21/18 12:21 EA (Rec: 02/21/18 12:51 EA [id number]) Out-Patient Physical Therapy Visit Information Visit Information Visit Type Treatment Note Visit Start Time 12:15 Visit Stop Time 13:00 Total Visit Minutes 45 Visit Number 6 PT-OP-B Current Condition Start: 01/23/18 17:09 Freq: Status: Active Protocol: Document 01/23/18 17:20 EA (Rec: 01/25/18 07:29 EA [id number]) Current Condition History of Current Condition Onset Date s/p L4-L5 TLIF w/ POST INSTRUMENTATION Current Complaints Decreased activity tolerance due to low back pain History of Current Condition May/2017 sudden onset of low back pain with radiation to left LLE. Patient underwent L4 -L5 TLIF with posterior instrumentation on 12/02/17. Patient reports compliant with HEP and restrictions. Main complaint today is decreased tolerance to activities in standing due to low back pain and weakness to both LE's and lumbar area. Pt reports Healing went well with no infection. Prior Treatments and Tests 12/21/17 recent follow up to her surgeon. Future Testing and Treatments Planned None identified Treatment Goals Patient/Caregiver Goals Patient wants to get back to PLOF Prior Functional Status Baseline Function- ADL's Independent Baseline Function- Mobility Independent Baseline Function- Gait No limitation prior to the onset of back pain last 2017 Baseline Function- Work/School Retired Baseline Function- Recreation/Hobbies Retired Current Functional Impairments (Reported) Functional Limitations- ADL's Limited in all activites that requires standing and lifting. Functional Limitations- Mobility/Gait unable to walk more than 5 mins Functional Limitations- Recreation/ Unable to perform regular Hobbies daily cooking due to increased in low back pain. PT-OP-C Subjective Start: 01/23/18 17:09 Freq: Status: Active Protocol: Document 02/21/18 12:21 EA (Rec: 02/21/18 12:51 EA [id number]) OP-PT Subjective Patient Comments Patient Comments Pt reports low back pain increase after last session; states pain meds helped decreased pain. PT-OP-G Mobility & Gait Start: 01/23/18 17:09 Freq: Status: Active Protocol: Document 01/23/18 17:30 EA (Rec: 01/26/18 13:19 EA [id number]) OP Mobility Evaluation Bed Mobility Rolling Indep with mild difficulty Supine to and from Sit INdep with mild difficulty Transfers Sit to Stand Indep Bed to Chair Transfers Indep Functional Movements Lifting and Carrying Restriction to <10 lbs Squats Sit to stand requires both hands for support OP Gait Assessment Gait Gait Assistance Required: Independent Able to Maintain Weight Bearing Status Yes During Gait Assistive Devices Assistive Device None PT-OP-J Posture/Palpation/Skin Start: 01/23/18 17:09 Freq: Status: Active Protocol: Document 01/23/18 17:30 EA (Rec: 01/26/18 13:19 EA [id number]) Posture Evaluation Position Standing L-Spine Posture Flattened Pelvis Posture Posterior Tilted Comments Posture Comments Fair posture Palpation Assessment Location One Palpation Location Paralumbars, QL, thoracolumbars fascia Palpation Findings Soft Tissue Tightness Muscle Guarding Tenderness Palpation Details Grade 2/4 tenderness Skin Assessment Incisional Assessment Incision Appearance/Comments No secondary healling or active signs of infection. Two 2 bvertica lines at lumbar region PT-OP-K Range of Motion Start: 01/23/18 17:09 Freq: Status: Active Protocol: Document 01/23/18 17:30 EA (Rec: 01/26/18 13:19 EA [id number]) Lumbar Spine Range of Motion Lumbar Spine Active ROM Limitations Pain Comments Not tested at this time due to precautions Hip Goniometric Range of Motion Hip Measured in Degrees Left Hip ROM WFL Yes Testing Position Supine Right Hip ROM WFL Yes Knee Goniometric Range of Motion Knee Measured in Degrees Right Knee ROM WFL Yes Left Knee ROM WFL Yes PT-OP-L Special Tests Start: 01/23/18 17:09 Freq: Status: Active Protocol: Document 01/23/18 17:30 EA (Rec: 01/26/18 13:19 EA [id number]) Special Tests Lumbar Spine Special Tests Other- 1 Test Results No Lumbar special tests perform at this time due to pre-cautions PT-OP-M Strength Start: 01/23/18 17:09 Freq: Status: Active Protocol: Document 01/23/18 17:34 EA (Rec: 01/23/18 17:38 EA [id number]) Hip Strength Hip Manual Muscle Testing Right Flexion (L2) 3+ Fair+ Extension (S1) 4- Good- Abduction 3+ Fair+ Adduction 4 Good External Rotation 4- Good- Internal Rotation 4- Good- Left Flexion (L2) 3+ Fair+ Extension (S1) 4- Good- Abduction 3+ Fair+ Adduction 4 Good External Rotation 4- Good- Internal Rotation 4- Good- Knee Strength Knee Manual Muscle Testing Right Flexion (S2) 4 Good Extension (L3) 4 Good Left Flexion (S2) 4 Good Extension (L3) 4 Good Ankle/Foot Strength Ankle and Foot Manual Muscle Testing Right Dorsiflexion (L4) 4 Good Plantarflexion (S1) 4 Good Inversion 4 Good Eversion (S1) 4 Good Left Dorsiflexion (L4) 4 Good Inversion 4 Good Eversion (S1) 4 Good PT-OP-Q Treatments Start: 01/23/18 17:09 Freq: Status: Active Protocol: Document 02/21/18 12:21 EA (Rec: 02/21/18 12:51 EA [id number]) Cardio Equipment Recumbent Stepper (Sci-Fit) Duration (Minutes) 6 Resistance 1.5 Gym Equipment Cable Column (Body Solid) Other- 1 Details sitted hip ABD/ADD Resistance 10# Reps/Time x 12reps Leg Extension Resistance 10# Reps/Time x 12 reps Shuttle Recovery Bilateral Squats Resistance 50# Shuttle Recovery Platform Stable Reps/Time x 15 reps Unilateral Squats Resistance 25# Shuttle Recovery Platform Stable Reps/Time x 15 reps Therapeutic Exercises Standing Exercises 1 Standing Exercise Name wall squat with TA activation Reps/Minutes x 10 reps x 2 Comments 30deg knee bent Manual Therapy Treatment Soft Tissue Mobilization paraspinals, QL, gluteals Mobilization Type Rolling Intensity/Depth Superficial Body Position Sidelying Comments bilateral PT-OP-R Modalities Start: 01/23/18 17:09 Freq: Status: Active Protocol: Document 02/21/18 12:21 EA (Rec: 02/21/18 12:51 EA [id number]) Electric Stimulation Electric Stimulation Interferential Current (IFC) Body Location Left paralumabrs upper gluteals Duration (Minutes) 15 Intensity 14 Patient Position Sitting Combined With Heat/Cold Cold Pack PT-OP-T Assessment and Plan Start: 01/23/18 17:09 Freq: Status: Active Protocol: Document 02/21/18 12:21 EA (Rec: 02/21/18 12:51 EA [id number]) Physical Therapy Assessment Assessment Summary Assessment Tolerated treatment with no discomfort noted during exercises. Weakness to both LE 's still evident but is improving. Physical Therapy Plan Next Visit Focus/Plan Next Note Type Treatment Note Next Visit Plan Cont. with current plan and progress as tolerated
--- NOTE | 2018-02-23 11:15 | PT.OTN ---
Current Diagnoses Other spondylosis with radiculopathy, lumbar region (02/23/18) Spinal stenosis, lumbar region with neurogenic claudication (02/23/18) Physical Therapy Treatment Note PT-OP-A Visit Information Start: 01/23/18 17:09 Freq: Status: Active Protocol: Document 02/23/18 11:15 RCC (Rec: 02/23/18 12:23 RCC [id number]) Out-Patient Physical Therapy Visit Information Visit Information Visit Type Treatment Note Visit Start Time 10:30 Visit Stop Time 11:20 Total Visit Minutes 50 Visit Number 7 Evaluation Information Evaluation Date 01/23/18 PT-OP-B Current Condition Start: 01/23/18 17:09 Freq: Status: Active Protocol: Document 01/23/18 17:20 EA (Rec: 01/25/18 07:29 EA [id number]) Current Condition History of Current Condition Onset Date s/p L4-L5 TLIF w/ POST INSTRUMENTATION Current Complaints Decreased activity tolerance due to low back pain History of Current Condition May/2017 sudden onset of low back pain with radiation to left LLE. Patient underwent L4 -L5 TLIF with posterior instrumentation on 12/02/17. Patient reports compliant with HEP and restrictions. Main complaint today is decreased tolerance to activities in standing due to low back pain and weakness to both LE's and lumbar area. Pt reports Healing went well with no infection. Prior Treatments and Tests 12/21/17 recent follow up to her surgeon. Future Testing and Treatments Planned None identified Treatment Goals Patient/Caregiver Goals Patient wants to get back to PLOF Prior Functional Status Baseline Function- ADL's Independent Baseline Function- Mobility Independent Baseline Function- Gait No limitation prior to the onset of back pain last 2017 Baseline Function- Work/School Retired Baseline Function- Recreation/Hobbies Retired Current Functional Impairments (Reported) Functional Limitations- ADL's Limited in all activites that requires standing and lifting. Functional Limitations- Mobility/Gait unable to walk more than 5 mins Functional Limitations- Recreation/ Unable to perform regular Hobbies daily cooking due to increased in low back pain. PT-OP-C Subjective Start: 01/23/18 17:09 Freq: Status: Active Protocol: Document 02/23/18 11:15 RCC (Rec: 02/23/18 12:23 RCC [id number]) OP-PT Subjective Patient Comments Patient Comments Pt states that she had no increased pain after last visit. She reports compliance with her HEP. PT-OP-G Mobility & Gait Start: 01/23/18 17:09 Freq: Status: Active Protocol: Document 01/23/18 17:30 EA (Rec: 01/26/18 13:19 EA [id number]) OP Mobility Evaluation Bed Mobility Rolling Indep with mild difficulty Supine to and from Sit INdep with mild difficulty Transfers Sit to Stand Indep Bed to Chair Transfers Indep Functional Movements Lifting and Carrying Restriction to <10 lbs Squats Sit to stand requires both hands for support OP Gait Assessment Gait Gait Assistance Required: Independent Able to Maintain Weight Bearing Status Yes During Gait Assistive Devices Assistive Device None PT-OP-J Posture/Palpation/Skin Start: 01/23/18 17:09 Freq: Status: Active Protocol: Document 01/23/18 17:30 EA (Rec: 01/26/18 13:19 EA [id number]) Posture Evaluation Position Standing L-Spine Posture Flattened Pelvis Posture Posterior Tilted Comments Posture Comments Fair posture Palpation Assessment Location One Palpation Location Paralumbars, QL, thoracolumbars fascia Palpation Findings Soft Tissue Tightness Muscle Guarding Tenderness Palpation Details Grade 2/4 tenderness Skin Assessment Incisional Assessment Incision Appearance/Comments No secondary healling or active signs of infection. Two 2 bvertica lines at lumbar region PT-OP-K Range of Motion Start: 01/23/18 17:09 Freq: Status: Active Protocol: Document 01/23/18 17:30 EA (Rec: 01/26/18 13:19 EA [id number]) Lumbar Spine Range of Motion Lumbar Spine Active ROM Limitations Pain Comments Not tested at this time due to precautions Hip Goniometric Range of Motion Hip Measured in Degrees Left Hip ROM WFL Yes Testing Position Supine Right Hip ROM WFL Yes Knee Goniometric Range of Motion Knee Measured in Degrees Right Knee ROM WFL Yes Left Knee ROM WFL Yes PT-OP-L Special Tests Start: 01/23/18 17:09 Freq: Status: Active Protocol: Document 01/23/18 17:30 EA (Rec: 01/26/18 13:19 EA [id number]) Special Tests Lumbar Spine Special Tests Other- 1 Test Results No Lumbar special tests perform at this time due to pre-cautions PT-OP-M Strength Start: 01/23/18 17:09 Freq: Status: Active Protocol: Document 01/23/18 17:34 EA (Rec: 01/23/18 17:38 EA [id number]) Hip Strength Hip Manual Muscle Testing Right Flexion (L2) 3+ Fair+ Extension (S1) 4- Good- Abduction 3+ Fair+ Adduction 4 Good External Rotation 4- Good- Internal Rotation 4- Good- Left Flexion (L2) 3+ Fair+ Extension (S1) 4- Good- Abduction 3+ Fair+ Adduction 4 Good External Rotation 4- Good- Internal Rotation 4- Good- Knee Strength Knee Manual Muscle Testing Right Flexion (S2) 4 Good Extension (L3) 4 Good Left Flexion (S2) 4 Good Extension (L3) 4 Good Ankle/Foot Strength Ankle and Foot Manual Muscle Testing Right Dorsiflexion (L4) 4 Good Plantarflexion (S1) 4 Good Inversion 4 Good Eversion (S1) 4 Good Left Dorsiflexion (L4) 4 Good Inversion 4 Good Eversion (S1) 4 Good PT-OP-Q Treatments Start: 01/23/18 17:09 Freq: Status: Active Protocol: Document 02/23/18 11:15 RCC (Rec: 02/23/18 12:23 RCC [email or web address]) Cardio Equipment Recumbent Elliptical (Biodex) Duration (Minutes) 8 Resistance 1 Gym Equipment Shuttle Recovery Bilateral Squats Resistance 50# Shuttle Recovery Platform Stable Reps/Time 2x 15 reps Unilateral Squats Resistance 25# Shuttle Recovery Platform Stable Reps/Time x 15 reps Therapeutic Ball bilateral knee and hip flexion/extension Ball Size/Color 55 cm ball Body Position Supine Reps/Duration 2x20 Comments emphasis on core and lumbar stability TA activation Exercise Details sitting posture and mild bouncing while engaging TA Ball Size/Color 65 cm Body Position Sitting Comments hand assist initially, then 1 min close CGA sitting on ball Therapeutic Exercises Supine Exercises piriformis stretch Side left Reps/Minutes 2x30 sec on the L 1 Supine Exercise Name SLR Side bilateral Comments with TA activation TA activation Supine Exercise Name PPT with partial head lift Reps/Minutes x 10 reps x 2 sets Standing Exercises step ups Standing Exercise Name step up forward, down backward Side bilateral Equipment Used 4 step in // bars Comments encouraged just finger tip UE assist HS stretch Standing Exercise Name HS stretch on stairs Side bilateral Reps/Minutes 2x30 sec each PT-OP-R Modalities Start: 01/23/18 17:09 Freq: Status: Active Protocol: Document 02/23/18 11:15 RCC (Rec: 02/23/18 12:23 RCC [email or web address]) Electric Stimulation Electric Stimulation Interferential Current (IFC) Body Location Left paralumabrs upper gluteals Duration (Minutes) 15 Intensity 18 Patient Position Supine Combined With Heat/Cold Cold Pack PT-OP-T Assessment and Plan Start: 01/23/18 17:09 Freq: Status: Active Protocol: Document 02/23/18 11:15 RCC (Rec: 02/23/18 12:23 RCC [email or web address]) Physical Therapy Assessment Assessment Summary Assessment Pt required verbal cuing to prevent excessive genu valgus with Shuttle leg press and step up/downs today. Pt with quadriceps weakness, likely limiting her ability to tolerate stairs at home. Physical Therapy Plan Frequency and Duration Frequency of Treatment 2x/Week Duration of Treatment 8 wks Plan of Care Start Date 01/23/18 Plan of Care End Date 03/20/18 Next Visit Focus/Plan Next Note Type Treatment Note Next Visit Plan advance core, hip and quad strength as tolerated, HS stretching.
--- NOTE | 2018-02-27 09:53 | PT.OTN ---
Current Diagnoses Other spondylosis with radiculopathy, lumbar region (02/27/18) Spinal stenosis, lumbar region with neurogenic claudication (02/27/18) Physical Therapy Treatment Note PT-OP-A Visit Information Start: 01/23/18 17:09 Freq: Status: Active Protocol: Document 02/27/18 09:06 EA (Rec: 02/27/18 09:11 EA [id number]) Out-Patient Physical Therapy Visit Information Visit Information Visit Type Treatment Note Visit Start Time 09:00 Visit Stop Time 09:45 Total Visit Minutes 43 Visit Number 8 PT-OP-B Current Condition Start: 01/23/18 17:09 Freq: Status: Active Protocol: Document 01/23/18 17:20 EA (Rec: 01/25/18 07:29 EA [id number]) Current Condition History of Current Condition Onset Date s/p L4-L5 TLIF w/ POST INSTRUMENTATION Current Complaints Decreased activity tolerance due to low back pain History of Current Condition May/2017 sudden onset of low back pain with radiation to left LLE. Patient underwent L4 -L5 TLIF with posterior instrumentation on 12/02/17. Patient reports compliant with HEP and restrictions. Main complaint today is decreased tolerance to activities in standing due to low back pain and weakness to both LE's and lumbar area. Pt reports Healing went well with no infection. Prior Treatments and Tests 12/21/17 recent follow up to her surgeon. Future Testing and Treatments Planned None identified Treatment Goals Patient/Caregiver Goals Patient wants to get back to PLOF Prior Functional Status Baseline Function- ADL's Independent Baseline Function- Mobility Independent Baseline Function- Gait No limitation prior to the onset of back pain last 2017 Baseline Function- Work/School Retired Baseline Function- Recreation/Hobbies Retired Current Functional Impairments (Reported) Functional Limitations- ADL's Limited in all activites that requires standing and lifting. Functional Limitations- Mobility/Gait unable to walk more than 5 mins Functional Limitations- Recreation/ Unable to perform regular Hobbies daily cooking due to increased in low back pain. PT-OP-C Subjective Start: 01/23/18 17:09 Freq: Status: Active Protocol: Document 02/27/18 09:06 EA (Rec: 02/27/18 09:11 EA [id number]) OP-PT Subjective Patient Comments Patient Comments Pt reports going upstairs increased back pain but goping down is better; states she has been walking as much as she can. Patient Reported Progress Improving PT-OP-G Mobility & Gait Start: 01/23/18 17:09 Freq: Status: Active Protocol: Document 01/23/18 17:30 EA (Rec: 01/26/18 13:19 EA [id number]) OP Mobility Evaluation Bed Mobility Rolling Indep with mild difficulty Supine to and from Sit INdep with mild difficulty Transfers Sit to Stand Indep Bed to Chair Transfers Indep Functional Movements Lifting and Carrying Restriction to <10 lbs Squats Sit to stand requires both hands for support OP Gait Assessment Gait Gait Assistance Required: Independent Able to Maintain Weight Bearing Status Yes During Gait Assistive Devices Assistive Device None PT-OP-J Posture/Palpation/Skin Start: 01/23/18 17:09 Freq: Status: Active Protocol: Document 01/23/18 17:30 EA (Rec: 01/26/18 13:19 EA [id number]) Posture Evaluation Position Standing L-Spine Posture Flattened Pelvis Posture Posterior Tilted Comments Posture Comments Fair posture Palpation Assessment Location One Palpation Location Paralumbars, QL, thoracolumbars fascia Palpation Findings Soft Tissue Tightness Muscle Guarding Tenderness Palpation Details Grade 2/4 tenderness Skin Assessment Incisional Assessment Incision Appearance/Comments No secondary healling or active signs of infection. Two 2 bvertica lines at lumbar region PT-OP-K Range of Motion Start: 01/23/18 17:09 Freq: Status: Active Protocol: Document 01/23/18 17:30 EA (Rec: 01/26/18 13:19 EA [id number]) Lumbar Spine Range of Motion Lumbar Spine Active ROM Limitations Pain Comments Not tested at this time due to precautions Hip Goniometric Range of Motion Hip Measured in Degrees Left Hip ROM WFL Yes Testing Position Supine Right Hip ROM WFL Yes Knee Goniometric Range of Motion Knee Measured in Degrees Right Knee ROM WFL Yes Left Knee ROM WFL Yes PT-OP-L Special Tests Start: 01/23/18 17:09 Freq: Status: Active Protocol: Document 01/23/18 17:30 EA (Rec: 01/26/18 13:19 EA [id number]) Special Tests Lumbar Spine Special Tests Other- 1 Test Results No Lumbar special tests perform at this time due to pre-cautions PT-OP-M Strength Start: 01/23/18 17:09 Freq: Status: Active Protocol: Document 01/23/18 17:34 EA (Rec: 01/23/18 17:38 EA [id number]) Hip Strength Hip Manual Muscle Testing Right Flexion (L2) 3+ Fair+ Extension (S1) 4- Good- Abduction 3+ Fair+ Adduction 4 Good External Rotation 4- Good- Internal Rotation 4- Good- Left Flexion (L2) 3+ Fair+ Extension (S1) 4- Good- Abduction 3+ Fair+ Adduction 4 Good External Rotation 4- Good- Internal Rotation 4- Good- Knee Strength Knee Manual Muscle Testing Right Flexion (S2) 4 Good Extension (L3) 4 Good Left Flexion (S2) 4 Good Extension (L3) 4 Good Ankle/Foot Strength Ankle and Foot Manual Muscle Testing Right Dorsiflexion (L4) 4 Good Plantarflexion (S1) 4 Good Inversion 4 Good Eversion (S1) 4 Good Left Dorsiflexion (L4) 4 Good Inversion 4 Good Eversion (S1) 4 Good PT-OP-Q Treatments Start: 01/23/18 17:09 Freq: Status: Active Protocol: Document 02/27/18 09:06 EA (Rec: 02/27/18 09:11 EA [id number]) Cardio Equipment Recumbent Stepper (Sci-Fit) Duration (Minutes) 6 Resistance 2 Gym Equipment Cable Column (Body Solid) Other- 1 Details sitted hip ABD/ADD Resistance 10# Reps/Time x 12reps Leg Extension Resistance 10# Reps/Time x 12 reps Shuttle Recovery Bilateral Squats Resistance 62# Shuttle Recovery Platform Stable Reps/Time 2x 15 reps Unilateral Squats Resistance 25# Shuttle Recovery Platform Stable Reps/Time x 15 reps Therapeutic Exercises Supine Exercises 1 Supine Exercise Name SLR Side bilateral Comments with TA activation TA activation Supine Exercise Name PPT with partial head lift Reps/Minutes x 10 reps x 2 sets Standing Exercises step ups Standing Exercise Name step up forward, down backward Side bilateral Equipment Used 4 step pole to assist HS stretch Standing Exercise Name HS stretch on stairs Side bilateral Reps/Minutes 2x30 sec each 2 Standing Exercise Name side step squat with heel raises Side bilateral Reps/Minutes x 8 ft lines x 2 Manual Therapy Treatment Soft Tissue Mobilization paraspinals, QL, gluteals Mobilization Type Rolling Intensity/Depth Superficial Body Position Sidelying Comments bilateral PT-OP-R Modalities Start: 01/23/18 17:09 Freq: Status: Active Protocol: Document 02/27/18 09:42 EA (Rec: 02/27/18 09:44 EA [id number]) Hot Pack/Cold Pack Treatment Cold Pack Location low back Patient Position Sitting Treatment Duration (minutes) 12 Patient Tolerance Good PT-OP-T Assessment and Plan Start: 01/23/18 17:09 Freq: Status: Active Protocol: Document 02/27/18 09:42 EA (Rec: 02/27/18 09:44 EA [id number]) Physical Therapy Assessment Assessment Summary Assessment Improved strength with no discomfort during therex. Patient is progressing well. Physical Therapy Plan Next Visit Focus/Plan Next Note Type Treatment Note Next Visit Plan advance core, hip and quad strength as tolerated, HS stretching.
--- NOTE | 2018-03-02 11:15 | PT.OTN ---
Current Diagnoses Other spondylosis with radiculopathy, lumbar region (03/02/18) Spinal stenosis, lumbar region with neurogenic claudication (03/02/18) Physical Therapy Treatment Note PT-OP-A Visit Information Start: 01/23/18 17:09 Freq: Status: Active Protocol: Document 03/02/18 11:15 RCC (Rec: 03/02/18 13:42 RCC [id number]) Out-Patient Physical Therapy Visit Information Visit Information Visit Type Treatment Note Visit Start Time 10:30 Visit Stop Time 11:23 Total Visit Minutes 53 Visit Number 9 Number of DATA OFFICER Visits 0 Evaluation Information Evaluation Date 01/23/18 PT-OP-B Current Condition Start: 01/23/18 17:09 Freq: Status: Active Protocol: Document 01/23/18 17:20 EA (Rec: 01/25/18 07:29 EA [id number]) Current Condition History of Current Condition Onset Date s/p L4-L5 TLIF w/ POST INSTRUMENTATION Current Complaints Decreased activity tolerance due to low back pain History of Current Condition May/2017 sudden onset of low back pain with radiation to left LLE. Patient underwent L4 -L5 TLIF with posterior instrumentation on 12/02/17. Patient reports compliant with HEP and restrictions. Main complaint today is decreased tolerance to activities in standing due to low back pain and weakness to both LE's and lumbar area. Pt reports Healing went well with no infection. Prior Treatments and Tests 12/21/17 recent follow up to her surgeon. Future Testing and Treatments Planned None identified Treatment Goals Patient/Caregiver Goals Patient wants to get back to PLOF Prior Functional Status Baseline Function- ADL's Independent Baseline Function- Mobility Independent Baseline Function- Gait No limitation prior to the onset of back pain last 2017 Baseline Function- Work/School Retired Baseline Function- Recreation/Hobbies Retired Current Functional Impairments (Reported) Functional Limitations- ADL's Limited in all activites that requires standing and lifting. Functional Limitations- Mobility/Gait unable to walk more than 5 mins Functional Limitations- Recreation/ Unable to perform regular Hobbies daily cooking due to increased in low back pain. PT-OP-C Subjective Start: 01/23/18 17:09 Freq: Status: Active Protocol: Document 03/02/18 11:15 RCC (Rec: 03/02/18 13:42 RCC [id number]) OP-PT Subjective Patient Comments Patient Comments Pt reports doing her HEP, feeling a little better each week but still not comfident with stairs (hers are steep and high). PT-OP-G Mobility & Gait Start: 01/23/18 17:09 Freq: Status: Active Protocol: Document 01/23/18 17:30 EA (Rec: 01/26/18 13:19 EA [id number]) OP Mobility Evaluation Bed Mobility Rolling Indep with mild difficulty Supine to and from Sit INdep with mild difficulty Transfers Sit to Stand Indep Bed to Chair Transfers Indep Functional Movements Lifting and Carrying Restriction to <10 lbs Squats Sit to stand requires both hands for support OP Gait Assessment Gait Gait Assistance Required: Independent Able to Maintain Weight Bearing Status Yes During Gait Assistive Devices Assistive Device None PT-OP-J Posture/Palpation/Skin Start: 01/23/18 17:09 Freq: Status: Active Protocol: Document 01/23/18 17:30 EA (Rec: 01/26/18 13:19 EA [id number]) Posture Evaluation Position Standing L-Spine Posture Flattened Pelvis Posture Posterior Tilted Comments Posture Comments Fair posture Palpation Assessment Location One Palpation Location Paralumbars, QL, thoracolumbars fascia Palpation Findings Soft Tissue Tightness Muscle Guarding Tenderness Palpation Details Grade 2/4 tenderness Skin Assessment Incisional Assessment Incision Appearance/Comments No secondary healling or active signs of infection. Two 2 bvertica lines at lumbar region PT-OP-K Range of Motion Start: 01/23/18 17:09 Freq: Status: Active Protocol: Document 01/23/18 17:30 EA (Rec: 01/26/18 13:19 EA [id number]) Lumbar Spine Range of Motion Lumbar Spine Active ROM Limitations Pain Comments Not tested at this time due to precautions Hip Goniometric Range of Motion Hip Measured in Degrees Left Hip ROM WFL Yes Testing Position Supine Right Hip ROM WFL Yes Knee Goniometric Range of Motion Knee Measured in Degrees Right Knee ROM WFL Yes Left Knee ROM WFL Yes PT-OP-L Special Tests Start: 01/23/18 17:09 Freq: Status: Active Protocol: Document 01/23/18 17:30 EA (Rec: 01/26/18 13:19 EA [id number]) Special Tests Lumbar Spine Special Tests Other- 1 Test Results No Lumbar special tests perform at this time due to pre-cautions PT-OP-M Strength Start: 12/10/18 17:09 Freq: Status: Active Protocol: Document 01/23/18 17:34 EA (Rec: 01/23/18 17:38 EA [id number]) Hip Strength Hip Manual Muscle Testing Right Flexion (L2) 3+ Fair+ Extension (S1) 4- Good- Abduction 3+ Fair+ Adduction 4 Good External Rotation 4- Good- Internal Rotation 4- Good- Left Flexion (L2) 3+ Fair+ Extension (S1) 4- Good- Abduction 3+ Fair+ Adduction 4 Good External Rotation 4- Good- Internal Rotation 4- Good- Knee Strength Knee Manual Muscle Testing Right Flexion (S2) 4 Good Extension (L3) 4 Good Left Flexion (S2) 4 Good Extension (L3) 4 Good Ankle/Foot Strength Ankle and Foot Manual Muscle Testing Right Dorsiflexion (L4) 4 Good Plantarflexion (S1) 4 Good Inversion 4 Good Eversion (S1) 4 Good Left Dorsiflexion (L4) 4 Good Inversion 4 Good Eversion (S1) 4 Good PT-OP-Q Treatments Start: 01/23/18 17:09 Freq: Status: Active Protocol: Document 03/02/18 11:15 RCC (Rec: 03/02/18 13:42 RCC [email or web address]) Gym Equipment Cable Column (Body Solid) Leg Curl Resistance 15# Reps/Time x12 reps Other- 1 Details sitted hip ABD/ADD Resistance 10# Reps/Time x 12reps Leg Extension Resistance 10# Reps/Time x 12 reps Shuttle Recovery Bilateral Squats Resistance 50# Shuttle Recovery Platform Stable Reps/Time 2x 15 reps Unilateral Squats Resistance 25# Shuttle Recovery Platform Stable Reps/Time x 15 reps Therapeutic Ball lower trunk rotation with TA activation Ball Size/Color 55 cm ball Body Position Supine Reps/Duration x10 each direction bilateral knee and hip flexion/extension Ball Size/Color 55 cm ball Body Position Supine Reps/Duration 2x20 Comments emphasis on core and lumbar stability Therapeutic Exercises Supine Exercises piriformis stretch Side left Reps/Minutes 2x30 sec on the L 1 Supine Exercise Name SLR Side bilateral Comments with TA activation Sidelying Exercises clamshells Side bilateral Reps/Minutes x10 each Comments added to HEP Standing Exercises squats Side bilateral Equipment Used standing rail for UE support Reps/Minutes 10 Comments squatting to 55 cm ball and back up step ups Standing Exercise Name step up forward, down backward Side bilateral Equipment Used 5 step pole to assist HS stretch Standing Exercise Name HS stretch on stairs Side bilateral Reps/Minutes 2x30 sec each PT-OP-R Modalities Start: 01/23/18 17:09 Freq: Status: Active Protocol: Document 03/02/18 11:15 RCC (Rec: 03/02/18 13:42 RCC [email or web address]) Hot Pack/Cold Pack Treatment Cold Pack Location low back Patient Position Hooklying Treatment Duration (minutes) 10 Patient Tolerance Good PT-OP-T Assessment and Plan Start: 01/23/18 17:09 Freq: Status: Active Protocol: Document 03/02/18 11:15 RCC (Rec: 03/02/18 13:42 RCC [email or web address]) Physical Therapy Assessment Assessment Summary Assessment Pt without c/o pain during step up/down on 5 steps. Pt with more resistance with lower trunk rotation to the R supine with therapy ball compared to the L, emphasis on engaging and stabilizing core within a pain-free range (no c/o pain). Physical Therapy Plan Frequency and Duration Frequency of Treatment 2x/Week Duration of Treatment 8 wks Plan of Care Start Date 01/23/18 Plan of Care End Date 03/20/18 Next Visit Focus/Plan Next Note Type Treatment Note Next Visit Plan progress HS and quad strengthening, body mechanics
--- NOTE | 2018-03-06 10:10 | PT.OTN ---
Current Diagnoses Other spondylosis with radiculopathy, lumbar region (03/06/18) Spinal stenosis, lumbar region with neurogenic claudication (03/06/18) Physical Therapy Treatment Note PT-OP-A Visit Information Start: 01/23/18 17:09 Freq: Status: Active Protocol: Document 03/06/18 09:44 EA (Rec: 03/06/18 09:54 EA [id number]) Out-Patient Physical Therapy Visit Information Visit Information Visit Type Treatment Note Visit Start Time 09:00 Visit Stop Time 09:45 Total Visit Minutes 43 Visit Number 9 PT-OP-B Current Condition Start: 01/23/18 17:09 Freq: Status: Active Protocol: Document 01/23/18 17:20 EA (Rec: 01/25/18 07:29 EA [id number]) Current Condition History of Current Condition Onset Date s/p L4-L5 TLIF w/ POST INSTRUMENTATION Current Complaints Decreased activity tolerance due to low back pain History of Current Condition May/2017 sudden onset of low back pain with radiation to left LLE. Patient underwent L4 -L5 TLIF with posterior instrumentation on 12/02/17. Patient reports compliant with HEP and restrictions. Main complaint today is decreased tolerance to activities in standing due to low back pain and weakness to both LE's and lumbar area. Pt reports Healing went well with no infection. Prior Treatments and Tests 12/21/17 recent follow up to her surgeon. Future Testing and Treatments Planned None identified Treatment Goals Patient/Caregiver Goals Patient wants to get back to PLOF Prior Functional Status Baseline Function- ADL's Independent Baseline Function- Mobility Independent Baseline Function- Gait No limitation prior to the onset of back pain last 2017 Baseline Function- Work/School Retired Baseline Function- Recreation/Hobbies Retired Current Functional Impairments (Reported) Functional Limitations- ADL's Limited in all activites that requires standing and lifting. Functional Limitations- Mobility/Gait unable to walk more than 5 mins Functional Limitations- Recreation/ Unable to perform regular Hobbies daily cooking due to increased in low back pain. PT-OP-C Subjective Start: 01/23/18 17:09 Freq: Status: Active Protocol: Document 03/06/18 09:44 EA (Rec: 03/06/18 09:54 EA [id number]) OP-PT Subjective Patient Comments Patient Comments Pt reports able to perform HEP ; states unable to weed the yard as she was scared; states wants to learn safe way. PT-OP-G Mobility & Gait Start: 01/23/18 17:09 Freq: Status: Active Protocol: Document 01/23/18 17:30 EA (Rec: 01/26/18 13:19 EA [id number]) OP Mobility Evaluation Bed Mobility Rolling Indep with mild difficulty Supine to and from Sit INdep with mild difficulty Transfers Sit to Stand Indep Bed to Chair Transfers Indep Functional Movements Lifting and Carrying Restriction to <10 lbs Squats Sit to stand requires both hands for support OP Gait Assessment Gait Gait Assistance Required: Independent Able to Maintain Weight Bearing Status Yes During Gait Assistive Devices Assistive Device None PT-OP-J Posture/Palpation/Skin Start: 01/23/18 17:09 Freq: Status: Active Protocol: Document 01/23/18 17:30 EA (Rec: 01/26/18 13:19 EA [id number]) Posture Evaluation Position Standing L-Spine Posture Flattened Pelvis Posture Posterior Tilted Comments Posture Comments Fair posture Palpation Assessment Location One Palpation Location Paralumbars, QL, thoracolumbars fascia Palpation Findings Soft Tissue Tightness Muscle Guarding Tenderness Palpation Details Grade 2/4 tenderness Skin Assessment Incisional Assessment Incision Appearance/Comments No secondary healling or active signs of infection. Two 2 bvertica lines at lumbar region PT-OP-K Range of Motion Start: 01/23/18 17:09 Freq: Status: Active Protocol: Document 01/23/18 17:30 EA (Rec: 01/26/18 13:19 EA [id number]) Lumbar Spine Range of Motion Lumbar Spine Active ROM Limitations Pain Comments Not tested at this time due to precautions Hip Goniometric Range of Motion Hip Measured in Degrees Left Hip ROM WFL Yes Testing Position Supine Right Hip ROM WFL Yes Knee Goniometric Range of Motion Knee Measured in Degrees Right Knee ROM WFL Yes Left Knee ROM WFL Yes PT-OP-L Special Tests Start: 01/23/18 17:09 Freq: Status: Active Protocol: Document 01/23/18 17:30 EA (Rec: 01/26/18 13:19 EA [id number]) Special Tests Lumbar Spine Special Tests Other- 1 Test Results No Lumbar special tests perform at this time due to pre-cautions PT-OP-M Strength Start: 12/10/18 17:09 Freq: Status: Active Protocol: Document 01/23/18 17:34 EA (Rec: 01/23/18 17:38 EA [id number]) Hip Strength Hip Manual Muscle Testing Right Flexion (L2) 3+ Fair+ Extension (S1) 4- Good- Abduction 3+ Fair+ Adduction 4 Good External Rotation 4- Good- Internal Rotation 4- Good- Left Flexion (L2) 3+ Fair+ Extension (S1) 4- Good- Abduction 3+ Fair+ Adduction 4 Good External Rotation 4- Good- Internal Rotation 4- Good- Knee Strength Knee Manual Muscle Testing Right Flexion (S2) 4 Good Extension (L3) 4 Good Left Flexion (S2) 4 Good Extension (L3) 4 Good Ankle/Foot Strength Ankle and Foot Manual Muscle Testing Right Dorsiflexion (L4) 4 Good Plantarflexion (S1) 4 Good Inversion 4 Good Eversion (S1) 4 Good Left Dorsiflexion (L4) 4 Good Inversion 4 Good Eversion (S1) 4 Good PT-OP-Q Treatments Start: 01/23/18 17:09 Freq: Status: Active Protocol: Document 03/06/18 09:44 EA (Rec: 03/06/18 09:54 EA [id number]) Cardio Equipment Recumbent Stepper (Sci-Fit) Duration (Minutes) 6 Resistance 3 Gym Equipment Cable Column (Body Solid) Other- 1 Details sitted hip ABD/ADD Resistance 10# Reps/Time x 12reps Leg Extension Resistance 10# Reps/Time x 12 reps Shuttle Recovery Bilateral Squats Resistance 50# Shuttle Recovery Platform Stable Reps/Time 2x 15 reps Unilateral Squats Resistance 25# Shuttle Recovery Platform Stable Reps/Time x 15 reps Shuttle Balance 1 Details WBOS to perform semi squat Reps/Duration x 10 reps x 2 Therapeutic Ball lower trunk rotation with TA activation Ball Size/Color 55 cm ball Body Position Supine Reps/Duration x10 each direction TA activation Exercise Details sitting posture and mild bouncing while engaging TA Ball Size/Color 65 cm Body Position Sitting Comments hand assist initially, then 1 min close CGA sitting on ball Therapeutic Exercises Supine Exercises 1 Supine Exercise Name SLR Side bilateral Comments with TA activation TA activation Supine Exercise Name PPT with partial head lift Reps/Minutes x 10 reps x 2 sets Standing Exercises 3 Standing Exercise Name Half kneeling with shoulder front raises Reps/Minutes x 10 reps x 2 Comments cues to activate TA's step ups Standing Exercise Name step up forward, down backward Side bilateral Equipment Used 5 step pole to assist 2 Standing Exercise Name side step squat with heel raises Side bilateral Reps/Minutes x 8 ft lines x 2 1 Standing Exercise Name // bars partial steady lunges Reps/Minutes x 8 reps x 2 Comments cues to use hand for balance only Self-Care/Home Management Treatment Education Other Education Educated with weeding body mechanics with use foot stool to sit on; proper mechanics getting up and down. PT-OP-R Modalities Start: 01/23/18 17:09 Freq: Status: Active Protocol: Document 03/06/18 10:08 EA (Rec: 03/06/18 10:09 EA [id number]) Electric Stimulation Electric Stimulation Interferential Current (IFC) Body Location Left paralumabrs upper gluteals Duration (Minutes) 15 Intensity 18 Patient Position Supine Combined With Heat/Cold Cold Pack PT-OP-T Assessment and Plan Start: 01/23/18 17:09 Freq: Status: Active Protocol: Document 03/06/18 09:44 EA (Rec: 03/06/18 09:54 EA [id number]) Physical Therapy Assessment Assessment Summary Assessment Patient continued to show decreased trunk stability with lunges and half kneeling exercises and that requires cues to improve. Patient activity tolerance is much improved at this time. Physical Therapy Plan Next Visit Focus/Plan Next Note Type Treatment Note Next Visit Plan To start with the use of treadmill 5-8 mins or as tolerated
--- NOTE | 2018-03-09 10:30 | PT.OTN ---
Current Diagnoses Other spondylosis with radiculopathy, lumbar region (03/09/18) Spinal stenosis, lumbar region with neurogenic claudication (03/09/18) Physical Therapy Treatment Note PT-OP-A Visit Information Start: 01/23/18 17:09 Freq: Status: Active Protocol: Document 03/09/18 09:06 EA (Rec: 03/09/18 09:10 EA [id number]) Out-Patient Physical Therapy Visit Information Visit Information Visit Type Treatment Note Visit Start Time 09:00 Visit Stop Time 09:45 Total Visit Minutes 43 Visit Number 10 PT-OP-B Current Condition Start: 01/23/18 17:09 Freq: Status: Active Protocol: Document 01/23/18 17:20 EA (Rec: 01/25/18 07:29 EA [id number]) Current Condition History of Current Condition Onset Date s/p L4-L5 TLIF w/ POST INSTRUMENTATION Current Complaints Decreased activity tolerance due to low back pain History of Current Condition May/2017 sudden onset of low back pain with radiation to left LLE. Patient underwent L4 -L5 TLIF with posterior instrumentation on 12/02/17. Patient reports compliant with HEP and restrictions. Main complaint today is decreased tolerance to activities in standing due to low back pain and weakness to both LE's and lumbar area. Pt reports Healing went well with no infection. Prior Treatments and Tests 12/21/17 recent follow up to her surgeon. Future Testing and Treatments Planned None identified Treatment Goals Patient/Caregiver Goals Patient wants to get back to PLOF Prior Functional Status Baseline Function- ADL's Independent Baseline Function- Mobility Independent Baseline Function- Gait No limitation prior to the onset of back pain last 2017 Baseline Function- Work/School Retired Baseline Function- Recreation/Hobbies Retired Current Functional Impairments (Reported) Functional Limitations- ADL's Limited in all activites that requires standing and lifting. Functional Limitations- Mobility/Gait unable to walk more than 5 mins Functional Limitations- Recreation/ Unable to perform regular Hobbies daily cooking due to increased in low back pain. PT-OP-C Subjective Start: 01/23/18 17:09 Freq: Status: Active Protocol: Document 03/09/18 09:06 EA (Rec: 03/09/18 09:10 EA [id number]) OP-PT Subjective Patient Comments Patient Comments Pt reports cosnistent low back pain that requires her to take pain meds; states unable to walk out side due to pain which rated 4-6/10. Pt states that she has been cautious with lifting mechanics and also ADL vincent requires bending. PT-OP-G Mobility & Gait Start: 01/23/18 17:09 Freq: Status: Active Protocol: Document 01/23/18 17:30 EA (Rec: 01/26/18 13:19 EA [id number]) OP Mobility Evaluation Bed Mobility Rolling Indep with mild difficulty Supine to and from Sit INdep with mild difficulty Transfers Sit to Stand Indep Bed to Chair Transfers Indep Functional Movements Lifting and Carrying Restriction to <10 lbs Squats Sit to stand requires both hands for support OP Gait Assessment Gait Gait Assistance Required: Independent Able to Maintain Weight Bearing Status Yes During Gait Assistive Devices Assistive Device None PT-OP-J Posture/Palpation/Skin Start: 01/23/18 17:09 Freq: Status: Active Protocol: Document 01/23/18 17:30 EA (Rec: 01/26/18 13:19 EA [id number]) Posture Evaluation Position Standing L-Spine Posture Flattened Pelvis Posture Posterior Tilted Comments Posture Comments Fair posture Palpation Assessment Location One Palpation Location Paralumbars, QL, thoracolumbars fascia Palpation Findings Soft Tissue Tightness Muscle Guarding Tenderness Palpation Details Grade 2/4 tenderness Skin Assessment Incisional Assessment Incision Appearance/Comments No secondary healling or active signs of infection. Two 2 bvertica lines at lumbar region PT-OP-K Range of Motion Start: 01/23/18 17:09 Freq: Status: Active Protocol: Document 01/23/18 17:30 EA (Rec: 01/26/18 13:19 EA [id number]) Lumbar Spine Range of Motion Lumbar Spine Active ROM Limitations Pain Comments Not tested at this time due to precautions Hip Goniometric Range of Motion Hip Measured in Degrees Left Hip ROM WFL Yes Testing Position Supine Right Hip ROM WFL Yes Knee Goniometric Range of Motion Knee Measured in Degrees Right Knee ROM WFL Yes Left Knee ROM WFL Yes PT-OP-L Special Tests Start: 01/23/18 17:09 Freq: Status: Active Protocol: Document 01/23/18 17:30 EA (Rec: 01/26/18 13:19 EA [id number]) Special Tests Lumbar Spine Special Tests Other- 1 Test Results No Lumbar special tests perform at this time due to pre-cautions PT-OP-M Strength Start: 01/23/18 17:09 Freq: Status: Active Protocol: Document 01/23/18 17:34 EA (Rec: 01/23/18 17:38 EA [id number]) Hip Strength Hip Manual Muscle Testing Right Flexion (L2) 3+ Fair+ Extension (S1) 4- Good- Abduction 3+ Fair+ Adduction 4 Good External Rotation 4- Good- Internal Rotation 4- Good- Left Flexion (L2) 3+ Fair+ Extension (S1) 4- Good- Abduction 3+ Fair+ Adduction 4 Good External Rotation 4- Good- Internal Rotation 4- Good- Knee Strength Knee Manual Muscle Testing Right Flexion (S2) 4 Good Extension (L3) 4 Good Left Flexion (S2) 4 Good Extension (L3) 4 Good Ankle/Foot Strength Ankle and Foot Manual Muscle Testing Right Dorsiflexion (L4) 4 Good Plantarflexion (S1) 4 Good Inversion 4 Good Eversion (S1) 4 Good Left Dorsiflexion (L4) 4 Good Inversion 4 Good Eversion (S1) 4 Good PT-OP-Q Treatments Start: 01/23/18 17:09 Freq: Status: Active Protocol: Document 03/09/18 09:06 EA (Rec: 03/09/18 09:10 EA [id number]) Cardio Equipment Recumbent Stepper (Sci-Fit) Duration (Minutes) 6 Resistance 3 Other no hand support Gym Equipment Cable Column (Body Solid) Other- 1 Details sitted hip ABD/ADD Resistance 10# Reps/Time x 12reps Leg Extension Resistance 10# Reps/Time x 12 reps Shuttle Recovery Bilateral Squats Resistance 75# Shuttle Recovery Platform Stable Reps/Time 2x 15 reps Unilateral Squats Resistance 37# Shuttle Recovery Platform Stable Reps/Time x 15 reps Therapeutic Ball lower trunk rotation with TA activation Ball Size/Color 55 cm ball Body Position Supine Reps/Duration x10 each direction TA activation Exercise Details sitting posture and mild bouncing while engaging TA Ball Size/Color 65 cm Body Position Sitting Comments hand assist initially, then 1 min close CGA sitting on ball Therapeutic Exercises Supine Exercises TA activation Supine Exercise Name PPT with partial head lift Reps/Minutes x 10 reps x 2 sets Standing Exercises 4 Standing Exercise Name Row Resistance BTB Reps/Minutes x 15 reps 3 Standing Exercise Name Half kneeling with shoulder front raises Reps/Minutes x 10 reps x 2 Comments cues to activate TA's squats Side bilateral Equipment Used standing rail for UE support Reps/Minutes 10 Comments squatting to 55 cm ball and back up step ups Standing Exercise Name step up forward, down backward Side bilateral Equipment Used 5 step pole to assist HS stretch Standing Exercise Name HS stretch on stairs Side bilateral Reps/Minutes 2x30 sec each 2 Standing Exercise Name side step squat with heel raises Side bilateral Resistance YTB Reps/Minutes x 8 ft lines x 2 1 Standing Exercise Name // bars partial steady lunges Reps/Minutes x 8 reps x 2 Comments cues to use hand for balance only PT-OP-R Modalities Start: 01/23/18 17:09 Freq: Status: Active Protocol: Document 03/09/18 09:44 EA (Rec: 03/09/18 09:46 EA [id number]) Electric Stimulation Electric Stimulation Interferential Current (IFC) Body Location Left paralumabrs upper gluteals Duration (Minutes) 15 Intensity 18 Patient Position Supine Combined With Heat/Cold Cold Pack PT-OP-T Assessment and Plan Start: 01/23/18 17:09 Freq: Status: Active Protocol: Document 03/09/18 09:44 EA (Rec: 03/09/18 09:46 EA [id number]) Physical Therapy Assessment Assessment Summary Assessment Tolerated treatment but with difficulty with side step and fwd/bwd stepping with YTB with hand support. Overall patient is progressing towards goals. Physical Therapy Plan Next Visit Focus/Plan Next Note Type Treatment Note: standing core exercise
--- NOTE | 2018-03-14 10:32 | PT.OTN ---
Current Diagnoses Other spondylosis with radiculopathy, lumbar region (03/14/18) Spinal stenosis, lumbar region with neurogenic claudication (03/14/18) Physical Therapy Treatment Note PT-OP-A Visit Information Start: 01/23/18 17:09 Freq: Status: Active Protocol: Document 03/14/18 09:48 [facility] (Rec: 03/14/18 10:32 [facility] [id number]) Out-Patient Physical Therapy Visit Information Visit Information Visit Type Treatment Note Visit Start Time 09:45 Visit Stop Time 10:25 Total Visit Minutes 40 Visit Number 11 PT-OP-B Current Condition Start: 01/23/18 17:09 Freq: Status: Active Protocol: Document 01/23/18 17:20 EA (Rec: 01/25/18 07:29 EA [id number]) Current Condition History of Current Condition Onset Date s/p L4-L5 TLIF w/ POST INSTRUMENTATION Current Complaints Decreased activity tolerance due to low back pain History of Current Condition May/2017 sudden onset of low back pain with radiation to left LLE. Patient underwent L4 -L5 TLIF with posterior instrumentation on 12/02/17. Patient reports compliant with HEP and restrictions. Main complaint today is decreased tolerance to activities in standing due to low back pain and weakness to both LE's and lumbar area. Pt reports Healing went well with no infection. Prior Treatments and Tests 12/21/17 recent follow up to her surgeon. Future Testing and Treatments Planned None identified Treatment Goals Patient/Caregiver Goals Patient wants to get back to PLOF Prior Functional Status Baseline Function- ADL's Independent Baseline Function- Mobility Independent Baseline Function- Gait No limitation prior to the onset of back pain last 2017 Baseline Function- Work/School Retired Baseline Function- Recreation/Hobbies Retired Current Functional Impairments (Reported) Functional Limitations- ADL's Limited in all activites that requires standing and lifting. Functional Limitations- Mobility/Gait unable to walk more than 5 mins Functional Limitations- Recreation/ Unable to perform regular Hobbies daily cooking due to increased in low back pain. PT-OP-C Subjective Start: 01/23/18 17:09 Freq: Status: Active Protocol: Document 03/14/18 09:48 [facility] (Rec: 03/14/18 10:32 [facility] [id number]) OP-PT Subjective Patient Comments Patient Comments Pt reports compliance with HEP . Back is still painful. Reports she feels like she has improved a lot. Reports she feels like her HEP helps. Patient Reported Progress Improving PT-OP-G Mobility & Gait Start: 01/23/18 17:09 Freq: Status: Active Protocol: Document 01/23/18 17:30 EA (Rec: 01/26/18 13:19 EA [id number]) OP Mobility Evaluation Bed Mobility Rolling Indep with mild difficulty Supine to and from Sit INdep with mild difficulty Transfers Sit to Stand Indep Bed to Chair Transfers Indep Functional Movements Lifting and Carrying Restriction to <10 lbs Squats Sit to stand requires both hands for support OP Gait Assessment Gait Gait Assistance Required: Independent Able to Maintain Weight Bearing Status Yes During Gait Assistive Devices Assistive Device None PT-OP-J Posture/Palpation/Skin Start: 01/23/18 17:09 Freq: Status: Active Protocol: Document 01/23/18 17:30 EA (Rec: 01/26/18 13:19 EA [id number]) Posture Evaluation Position Standing L-Spine Posture Flattened Pelvis Posture Posterior Tilted Comments Posture Comments Fair posture Palpation Assessment Location One Palpation Location Paralumbars, QL, thoracolumbars fascia Palpation Findings Soft Tissue Tightness Muscle Guarding Tenderness Palpation Details Grade 2/4 tenderness Skin Assessment Incisional Assessment Incision Appearance/Comments No secondary healling or active signs of infection. Two 2 bvertica lines at lumbar region PT-OP-K Range of Motion Start: 01/23/18 17:09 Freq: Status: Active Protocol: Document 01/23/18 17:30 EA (Rec: 01/26/18 13:19 EA [id number]) Lumbar Spine Range of Motion Lumbar Spine Active ROM Limitations Pain Comments Not tested at this time due to precautions Hip Goniometric Range of Motion Hip Measured in Degrees Left Hip ROM WFL Yes Testing Position Supine Right Hip ROM WFL Yes Knee Goniometric Range of Motion Knee Measured in Degrees Right Knee ROM WFL Yes Left Knee ROM WFL Yes PT-OP-L Special Tests Start: 01/23/18 17:09 Freq: Status: Active Protocol: Document 01/23/18 17:30 EA (Rec: 01/26/18 13:19 EA [id number]) Special Tests Lumbar Spine Special Tests Other- 1 Test Results No Lumbar special tests perform at this time due to pre-cautions PT-OP-M Strength Start: 01/23/18 17:09 Freq: Status: Active Protocol: Document 01/23/18 17:34 EA (Rec: 01/23/18 17:38 EA [id number]) Hip Strength Hip Manual Muscle Testing Right Flexion (L2) 3+ Fair+ Extension (S1) 4- Good- Abduction 3+ Fair+ Adduction 4 Good External Rotation 4- Good- Internal Rotation 4- Good- Left Flexion (L2) 3+ Fair+ Extension (S1) 4- Good- Abduction 3+ Fair+ Adduction 4 Good External Rotation 4- Good- Internal Rotation 4- Good- Knee Strength Knee Manual Muscle Testing Right Flexion (S2) 4 Good Extension (L3) 4 Good Left Flexion (S2) 4 Good Extension (L3) 4 Good Ankle/Foot Strength Ankle and Foot Manual Muscle Testing Right Dorsiflexion (L4) 4 Good Plantarflexion (S1) 4 Good Inversion 4 Good Eversion (S1) 4 Good Left Dorsiflexion (L4) 4 Good Inversion 4 Good Eversion (S1) 4 Good PT-OP-Q Treatments Start: 01/23/18 17:09 Freq: Status: Active Protocol: Document 03/14/18 09:48 [facility] (Rec: 03/14/18 10:32 [facility] [id number]) Cardio Equipment Recumbent Bicycle Duration (Minutes) 6 Resistance 3 Seat Position 2 Gym Equipment Cable Column (Body Solid) Leg Curl Resistance 20 Reps/Time 2x10 Other- 1 Details sitted hip ABD/ADD Resistance 20#/10# Reps/Time x 15 reps Leg Extension Resistance 10# Reps/Time 2x10 reps Shuttle Recovery Bilateral Squats Resistance 75# Shuttle Recovery Platform Stable Reps/Time 2x 15 reps Unilateral Squats Resistance 37# Shuttle Recovery Platform Stable Reps/Time x 15 reps Therapeutic Ball TA activation Exercise Details sitting posture and mild bouncing while engaging TA Ball Size/Color 65 cm Body Position Sitting Comments hand assist initially, then 1 min close CGA sitting on ball then pelvic circles Therapeutic Exercises Standing Exercises squats Side bilateral Equipment Used standing rail for UE support Reps/Minutes 12 Comments squatting to 55 cm ball and back up step ups Standing Exercise Name step up forward, down backward Side bilateral Equipment Used 6 in w/ rail Reps/Minutes 10 HS stretch Standing Exercise Name HS stretch on stairs Side bilateral Reps/Minutes 2x30 sec each 2 Standing Exercise Name side step squat with heel raises Side bilateral Resistance YTB Reps/Minutes x 20ft lines x 2 1 Standing Exercise Name // bars partial steady lunges Reps/Minutes x 8 reps x 2 Comments cues to use hand for balance only PT-OP-R Modalities Start: 01/23/18 17:09 Freq: Status: Active Protocol: Document 03/09/18 09:44 EA (Rec: 03/09/18 09:46 EA [id number]) Electric Stimulation Electric Stimulation Interferential Current (IFC) Body Location Left paralumabrs upper gluteals Duration (Minutes) 15 Intensity 18 Patient Position Supine Combined With Heat/Cold Cold Pack PT-OP-T Assessment and Plan Start: 01/23/18 17:09 Freq: Status: Active Protocol: Document 03/14/18 09:48 [facility] (Rec: 03/14/18 10:32 [facility] [id number]) Physical Therapy Assessment Assessment Summary Assessment Pt able to tolerate inc resistance and reps with some exercises today with no c/o pain during exercises. Cueing required for form and breathing. Physical Therapy Plan Frequency and Duration Frequency of Treatment 2x/Week Duration of Treatment 8 wks Plan of Care Start Date 01/23/18 Plan of Care End Date 03/20/18 Next Visit Focus/Plan Next Note Type Progress Note Next Visit Plan New plan of care. Advance core .
--- NOTE | 2018-03-22 16:54 | PT.OTRE ---
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) Vascular claudication (Chronic 04/20/16) 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) ASVD (arteriosclerotic vascular disease) (Acute) Easy bruisability (Acute) Iliac artery stenosis, bilateral (Acute) Surgical History (Last Updated 11/29/17 @ 09:11 by Jess Siegel RN) Hx of sinus surgery (Acute) Status post bilateral cataract extraction (Acute) Provider Visit Care Team Role Provider Type Miguel Ruano MD Primary Care Provider Physician Specialty: Internal Medicine Address: [address] [place] [address], [id number] Email: [email or web address] Sina Jacques MD Attending Provider Physician Specialty: Orthopedic Surgery Address: [address] [place] [address], [id number] Email: [email or web address] Physical Therapy Re-Evaluation PT-OP-A Visit Information Start: 01/23/18 17:09 Freq: Status: Active Protocol: Document 03/22/18 10:28 EA (Rec: 03/22/18 10:33 EA [id number]) Out-Patient Physical Therapy Visit Information Visit Information Visit Type Treatment Note Visit Note Re-eval performed to this date Visit Start Time 09:45 Visit Stop Time 10:35 Total Visit Minutes 50 Visit Number 12 PT-OP-B Current Condition Start: 01/23/18 17:09 Freq: Status: Active Protocol: Document 01/23/18 17:20 EA (Rec: 01/25/18 07:29 EA [id number]) Current Condition History of Current Condition Onset Date s/p L4-L5 TLIF w/ POST INSTRUMENTATION Current Complaints Decreased activity tolerance due to low back pain History of Current Condition May/2017 sudden onset of low back pain with radiation to left LLE. Patient underwent L4 -L5 TLIF with posterior instrumentation on 12/02/17. Patient reports compliant with HEP and restrictions. Main complaint today is decreased tolerance to activities in standing due to low back pain and weakness to both LE's and lumbar area. Pt reports Healing went well with no infection. Prior Treatments and Tests 12/21/17 recent follow up to her surgeon. Future Testing and Treatments Planned None identified Treatment Goals Patient/Caregiver Goals Patient wants to get back to PLOF Prior Functional Status Baseline Function- ADL's Independent Baseline Function- Mobility Independent Baseline Function- Gait No limitation prior to the onset of back pain last 2017 Baseline Function- Work/School Retired Baseline Function- Recreation/Hobbies Retired Current Functional Impairments (Reported) Functional Limitations- ADL's Limited in all activites that requires standing and lifting. Functional Limitations- Mobility/Gait unable to walk more than 5 mins Functional Limitations- Recreation/ Unable to perform regular Hobbies daily cooking due to increased in low back pain. PT-OP-C Subjective Start: 01/23/18 17:09 Freq: Status: Active Protocol: Document 03/22/18 10:28 EA (Rec: 03/22/18 10:33 EA [id number]) OP-PT Subjective Patient Comments Patient Comments Pt reorts has increased activity level with no increased in back symptoms; states compliant with HEP. Patient Reported Progress Improving PT-OP-G Mobility & Gait Start: 01/23/18 17:09 Freq: Status: Active Protocol: Document 01/23/18 17:30 EA (Rec: 01/26/18 13:19 EA [id number]) OP Mobility Evaluation Bed Mobility Rolling Indep with mild difficulty Supine to and from Sit INdep with mild difficulty Transfers Sit to Stand Indep Bed to Chair Transfers Indep Functional Movements Lifting and Carrying Restriction to <10 lbs Squats Sit to stand requires both hands for support OP Gait Assessment Gait Gait Assistance Required: Independent Able to Maintain Weight Bearing Status Yes During Gait Assistive Devices Assistive Device None PT-OP-J Posture/Palpation/Skin Start: 01/23/18 17:09 Freq: Status: Active Protocol: Document 03/22/18 10:28 EA (Rec: 03/22/18 10:33 EA [id number]) Posture Evaluation Comments Posture Comments Fair posture PT-OP-K Range of Motion Start: 01/23/18 17:09 Freq: Status: Active Protocol: Document 01/23/18 17:30 EA (Rec: 01/26/18 13:19 EA [id number]) Lumbar Spine Range of Motion Lumbar Spine Active ROM Limitations Pain Comments Not tested at this time due to precautions Hip Goniometric Range of Motion Hip Measured in Degrees Left Hip ROM WFL Yes Testing Position Supine Right Hip ROM WFL Yes Knee Goniometric Range of Motion Knee Measured in Degrees Right Knee ROM WFL Yes Left Knee ROM WFL Yes PT-OP-L Special Tests Start: 01/23/18 17:09 Freq: Status: Active Protocol: Document 01/23/18 17:30 EA (Rec: 01/26/18 13:19 EA [id number]) Special Tests Lumbar Spine Special Tests Other- 1 Test Results No Lumbar special tests perform at this time due to pre-cautions PT-OP-M Strength Start: 01/23/18 17:09 Freq: Status: Active Protocol: Document 01/23/18 17:34 EA (Rec: 01/23/18 17:38 EA [id number]) Hip Strength Hip Manual Muscle Testing Right Flexion (L2) 3+ Fair+ Extension (S1) 4- Good- Abduction 3+ Fair+ Adduction 4 Good External Rotation 4- Good- Internal Rotation 4- Good- Left Flexion (L2) 3+ Fair+ Extension (S1) 4- Good- Abduction 3+ Fair+ Adduction 4 Good External Rotation 4- Good- Internal Rotation 4- Good- Knee Strength Knee Manual Muscle Testing Right Flexion (S2) 4 Good Extension (L3) 4 Good Left Flexion (S2) 4 Good Extension (L3) 4 Good Ankle/Foot Strength Ankle and Foot Manual Muscle Testing Right Dorsiflexion (L4) 4 Good Plantarflexion (S1) 4 Good Inversion 4 Good Eversion (S1) 4 Good Left Dorsiflexion (L4) 4 Good Inversion 4 Good Eversion (S1) 4 Good PT-OP-Q Treatments Start: 01/23/18 17:09 Freq: Status: Active Protocol: Document 03/22/18 10:28 EA (Rec: 02/06/19 10:33 EA [id number]) Cardio Equipment Recumbent Bicycle Duration (Minutes) 6 Resistance 4 Seat Position 2 Gym Equipment Cable Column (Body Solid) Leg Curl Resistance 20 Reps/Time 2x10 Other- 1 Details sitted hip ABD/ADD Resistance 20#/10# Reps/Time x 15 reps Leg Extension Resistance 10# Reps/Time 2x10 reps Shuttle Recovery Bilateral Squats Resistance 75# Shuttle Recovery Platform Stable Reps/Time 2x 15 reps Unilateral Squats Resistance 37# Shuttle Recovery Platform Stable Reps/Time x 15 reps Shuttle Balance 1 Details WBOS to perform semi squat Reps/Duration x 10 reps x 2 Therapeutic Ball bilateral knee and hip flexion/extension Ball Size/Color 55 cm ball Body Position Supine Reps/Duration 2x20 Comments emphasis on core and lumbar stability TA activation Exercise Details sitting posture and mild bouncing while engaging TA Ball Size/Color 65 cm Body Position Sitting Comments hand assist initially, then 1 min close CGA sitting on ball then pelvic circles Therapeutic Exercises Supine Exercises piriformis stretch Side left Reps/Minutes 2x30 sec on the L 1 Supine Exercise Name SLR Side bilateral Comments with TA activation TA activation Supine Exercise Name PPT with partial head lift Reps/Minutes x 10 reps x 2 sets Sidelying Exercises clamshells Side bilateral Reps/Minutes x10 each Comments added to HEP Standing Exercises 4 Standing Exercise Name Row Resistance BTB Reps/Minutes x 15 reps 3 Standing Exercise Name Half kneeling with shoulder front raises Reps/Minutes x 10 reps x 2 Comments cues to activate TA's squats Side bilateral Equipment Used standing rail for UE support Reps/Minutes 12 Comments squatting to 55 cm ball and back up step ups Standing Exercise Name step up forward, down backward with knee hike Side bilateral Equipment Used 6 in w/ rail single support Reps/Minutes 10 HS stretch Standing Exercise Name HS stretch on stairs Side bilateral Reps/Minutes 2x30 sec each 2 Standing Exercise Name side step squat with heel raises Side bilateral Resistance YTB Reps/Minutes x 20ft lines x 2 1 Standing Exercise Name // bars partial steady lunges Reps/Minutes x 8 reps x 2 Comments cues to use hand for balance only PT-OP-R Modalities Start: 01/23/18 17:09 Freq: Status: Active Protocol: Document 03/22/18 10:28 EA (Rec: 03/22/18 10:33 EA [id number]) Hot Pack/Cold Pack Treatment Cold Pack Location low back Patient Position Hooklying Treatment Duration (minutes) 10 Patient Tolerance Good PT-OP-T Assessment and Plan Start: 01/23/18 17:09 Freq: Status: Active Protocol: Document 03/22/18 10:28 EA (Rec: 03/22/18 10:33 EA [id number]) Physical Therapy Assessment Impairments Impairments Functional Activities Functional Mobility Gait Pain Posture ROM Soft Tissue Mobility Strength Goals Five Impairment No HEP in place Beef Specialist Goal (LTG) Patient will learn HEP independently and safely. LTG Duration 3 wks Four Impairment Impaired Lumbosacral ROM Beef Specialist Goal (LTG) Patient will exhibit lumbosacral ROM to within functional range to enhace functioanal lifting and other activites that requires lumbosacral ROM. LTG Duration 4 wks Three Impairment Inability to lift perform floor to waist > 10 lbs of weight Fpc Goal (LTG) Patient will perform floor to waist lift with good body mechanics > 10 lbs with no increase in low back symptoms LTG Duration 4 wks Two Impairment Impaired walking tolerance ( less than 5 mins) Beef Specialist Goal (LTG) Patient will ambulate with no increase in low back symptoms more than 10 mins LTG Duration 4 wks One Impairment Low back Oswetry impaiment scale of 38% impairment Beef Specialist Goal (LTG) Patient will have Low back Oswestry results of < 15% impairment LTG Duration 4 wks Progress Towards Goals Progress Towards Goals Progressing Toward Goals Assessment Summary Assessment Patient has been showing functional mobility improvement with good adherence to HEP. Patient will cont. to benefit with skilled PT. Physical Therapy Plan Frequency and Duration Frequency of Treatment 1x/Week Duration of Treatment 6 wks Plan of Care Start Date 03/20/18 Plan of Care End Date 05/01/18 Therapeutic Interventions Therapeutic Interventions Gait Training Home Exercise Program Joint Mobilizations Manual Therapy Patient/Caregiver Education Self-Care/Home Management Soft Tissue Mobilization Taping Therapeutic Activities Therapeutic Exercises Modalities Cold Pack/Ice Massage Electric Stimulation Hot Packs Paraffin Bath Ultrasound Next Visit Focus/Plan Next Note Type Treatment Note
--- NOTE | 2018-03-22 16:55 | PT.OPPOC ---
Current Diagnoses Other spondylosis with radiculopathy, lumbar region (03/22/18) Spinal stenosis, lumbar region with neurogenic claudication (03/22/18) Provider Visit Care Team Role Provider Type Miguel Ruano MD Primary Care Provider Physician Specialty: Internal Medicine Address: [address] [place] [address], [id number] Email: [email or web address] Sina Jacques MD Attending Provider Physician Specialty: Orthopedic Surgery Address: [address] [place] [address], [address] Email: [email or web address] Plan Of Care PT-OP-T Assessment and Plan Start: 01/23/18 17:09 Freq: Status: Active Protocol: Document 03/22/18 10:28 EA (Rec: 03/22/18 10:33 EA [id number]) Physical Therapy Assessment Impairments Impairments Functional Activities Functional Mobility Gait Pain Posture ROM Soft Tissue Mobility Strength Goals Five Impairment No HEP in place Longterm Goal (LTG) Patient will learn HEP independently and safely. LTG Duration 3 wks Four Impairment Impaired Lumbosacral ROM Longterm Goal (LTG) Patient will exhibit lumbosacral ROM to within functional range to enhace functioanal lifting and other activites that requires lumbosacral ROM. LTG Duration 4 wks Three Impairment Inability to lift perform floor to waist > 10 lbs of weight Longterm Goal (LTG) Patient will perform floor to waist lift with good body mechanics > 10 lbs with no increase in low back symptoms LTG Duration 4 wks Two Impairment Impaired walking tolerance ( less than 5 mins) Longterm Goal (LTG) Patient will ambulate with no increase in low back symptoms more than 10 mins LTG Duration 4 wks One Impairment Low back Oswetry impaiment scale of 38% impairment Longterm Goal (LTG) Patient will have Low back Oswestry results of < 15% impairment LTG Duration 4 wks Progress Towards Goals Progress Towards Goals Progressing Toward Goals Assessment Summary Assessment Patient has been showing functional mobility improvement with good adherence to HEP. Patient will cont. to benefit with skilled PT. Physical Therapy Plan Frequency and Duration Frequency of Treatment 1x/Week Duration of Treatment 6 wks Plan of Care Start Date 03/20/18 Plan of Care End Date 05/01/18 Therapeutic Interventions Therapeutic Interventions Gait Training Home Exercise Program Joint Mobilizations Manual Therapy Patient/Caregiver Education Self-Care/Home Management Soft Tissue Mobilization Taping Therapeutic Activities Therapeutic Exercises Modalities Cold Pack/Ice Massage Electric Stimulation Hot Packs Paraffin Bath Ultrasound Next Visit Focus/Plan Next Note Type Treatment Note Plan of Care Dates Plan of Care Start Date 03/20/18 Plan of Care End Date 05/01/18 Please Sign and Return: I have reviewed this Plan of Care and certify that the skilled therapy services above are required to meet the patient?s needs. Physician Signature Date Printed Name and Credentials Clinical Instructor Signature Printed Name and Credentials
--- NOTE | 2018-04-04 15:13 | PT.OTN ---
Current Diagnoses Other spondylosis with radiculopathy, lumbar region (04/04/18) Spinal stenosis, lumbar region with neurogenic claudication (04/04/18) Physical Therapy Treatment Note PT-OP-A Visit Information Start: 01/23/18 17:09 Freq: Status: Active Protocol: Document 04/04/18 12:52 EA (Rec: 04/04/18 12:58 EA [id number]) Out-Patient Physical Therapy Visit Information Visit Information Visit Type Treatment Note Visit Start Time 12:15 Visit Stop Time 13:00 Total Visit Minutes 50 Visit Number 13 PT-OP-B Current Condition Start: 01/23/18 17:09 Freq: Status: Active Protocol: Document 01/23/18 17:20 EA (Rec: 01/25/18 07:29 EA [id number]) Current Condition History of Current Condition Onset Date s/p L4-L5 TLIF w/ POST INSTRUMENTATION Current Complaints Decreased activity tolerance due to low back pain History of Current Condition May/2017 sudden onset of low back pain with radiation to left LLE. Patient underwent L4 -L5 TLIF with posterior instrumentation on 12/02/17. Patient reports compliant with HEP and restrictions. Main complaint today is decreased tolerance to activities in standing due to low back pain and weakness to both LE's and lumbar area. Pt reports Healing went well with no infection. Prior Treatments and Tests 12/21/17 recent follow up to her surgeon. Future Testing and Treatments Planned None identified Treatment Goals Patient/Caregiver Goals Patient wants to get back to PLOF Prior Functional Status Baseline Function- ADL's Independent Baseline Function- Mobility Independent Baseline Function- Gait No limitation prior to the onset of back pain last 2017 Baseline Function- Work/School Retired Baseline Function- Recreation/Hobbies Retired Current Functional Impairments (Reported) Functional Limitations- ADL's Limited in all activites that requires standing and lifting. Functional Limitations- Mobility/Gait unable to walk more than 5 mins Functional Limitations- Recreation/ Unable to perform regular Hobbies daily cooking due to increased in low back pain. PT-OP-C Subjective Start: 01/23/18 17:09 Freq: Status: Active Protocol: Document 04/04/18 12:52 EA (Rec: 04/04/18 12:58 EA [id number]) OP-PT Subjective Patient Comments Patient Comments Pt reports almost back to previous level of function except with stairs which still have difficulty. Patient Reported Progress Improving PT-OP-G Mobility & Gait Start: 01/23/18 17:09 Freq: Status: Active Protocol: Document 01/23/18 17:30 EA (Rec: 01/26/18 13:19 EA [id number]) OP Mobility Evaluation Bed Mobility Rolling Indep with mild difficulty Supine to and from Sit INdep with mild difficulty Transfers Sit to Stand Indep Bed to Chair Transfers Indep Functional Movements Lifting and Carrying Restriction to <10 lbs Squats Sit to stand requires both hands for support OP Gait Assessment Gait Gait Assistance Required: Independent Able to Maintain Weight Bearing Status Yes During Gait Assistive Devices Assistive Device None PT-OP-J Posture/Palpation/Skin Start: 01/23/18 17:09 Freq: Status: Active Protocol: Document 03/22/18 10:28 EA (Rec: 03/22/18 10:33 EA [id number]) Posture Evaluation Comments Posture Comments Fair posture PT-OP-K Range of Motion Start: 01/23/18 17:09 Freq: Status: Active Protocol: Document 01/23/18 17:30 EA (Rec: 01/26/18 13:19 EA [id number]) Lumbar Spine Range of Motion Lumbar Spine Active ROM Limitations Pain Comments Not tested at this time due to precautions Hip Goniometric Range of Motion Hip Measured in Degrees Left Hip ROM WFL Yes Testing Position Supine Right Hip ROM WFL Yes Knee Goniometric Range of Motion Knee Measured in Degrees Right Knee ROM WFL Yes Left Knee ROM WFL Yes PT-OP-L Special Tests Start: 01/23/18 17:09 Freq: Status: Active Protocol: Document 01/23/18 17:30 EA (Rec: 01/26/18 13:19 EA [id number]) Special Tests Lumbar Spine Special Tests Other- 1 Test Results No Lumbar special tests perform at this time due to pre-cautions PT-OP-M Strength Start: 01/23/18 17:09 Freq: Status: Active Protocol: Document 01/23/18 17:34 EA (Rec: 01/23/18 17:38 EA [id number]) Hip Strength Hip Manual Muscle Testing Right Flexion (L2) 3+ Fair+ Extension (S1) 4- Good- Abduction 3+ Fair+ Adduction 4 Good External Rotation 4- Good- Internal Rotation 4- Good- Left Flexion (L2) 3+ Fair+ Extension (S1) 4- Good- Abduction 3+ Fair+ Adduction 4 Good External Rotation 4- Good- Internal Rotation 4- Good- Knee Strength Knee Manual Muscle Testing Right Flexion (S2) 4 Good Extension (L3) 4 Good Left Flexion (S2) 4 Good Extension (L3) 4 Good Ankle/Foot Strength Ankle and Foot Manual Muscle Testing Right Dorsiflexion (L4) 4 Good Plantarflexion (S1) 4 Good Inversion 4 Good Eversion (S1) 4 Good Left Dorsiflexion (L4) 4 Good Inversion 4 Good Eversion (S1) 4 Good PT-OP-Q Treatments Start: 01/23/18 17:09 Freq: Status: Active Protocol: Document 04/04/18 12:52 EA (Rec: 04/04/18 12:58 EA [id number]) Cardio Equipment Recumbent Stepper (Sci-Fit) Duration (Minutes) 7 Resistance 3 Other no hand support Gym Equipment Shuttle Recovery Bilateral Squats Resistance 100# Shuttle Recovery Platform Stable Reps/Time 2x 15 reps Unilateral Squats Resistance 37# Shuttle Recovery Platform Stable Reps/Time x 15 reps Shuttle Balance 1 Details WBOS to perform semi squat Reps/Duration x 10 reps x 2 Therapeutic Exercises Supine Exercises 2 Supine Exercise Name Partial sit up with alternate leg marching Reps/Minutes x 10 reps x 2 sets piriformis stretch Side left Reps/Minutes 2x30 sec on the L 1 Supine Exercise Name SLR Side bilateral Comments with TA activation Standing Exercises 4 Standing Exercise Name Row Resistance BTB Reps/Minutes x 15 reps 3 Standing Exercise Name Half kneeling with shoulder front raises Reps/Minutes x 10 reps x 2 Comments cues to activate TA's step ups Standing Exercise Name step up forward, down backward with knee hike Side bilateral Equipment Used 6-8 in w/ rail single support Reps/Minutes 10 reps each legs x 2 sets 2 Standing Exercise Name side step squat with heel raises Side bilateral Resistance YTB Reps/Minutes x 20ft lines x 2 1 Standing Exercise Name // bars partial steady lunges Reps/Minutes x 8 reps x 2 Comments cues to use hand for balance only PT-OP-R Modalities Start: 01/23/18 17:09 Freq: Status: Active Protocol: Document 04/04/18 12:52 EA (Rec: 04/04/18 12:58 EA [id number]) Hot Pack/Cold Pack Treatment Cold Pack Location low back Patient Position Hooklying Treatment Duration (minutes) 10 Patient Tolerance Good PT-OP-T Assessment and Plan Start: 01/23/18 17:09 Freq: Status: Active Protocol: Document 04/04/18 12:52 EA (Rec: 04/04/18 12:58 EA [id number]) Physical Therapy Assessment Assessment Summary Assessment Patient exhibits improved tolerance to exercises with no discomfort during therex. Patient recommended to cont. HEP with addition of side stepping and stairs step up. Overall patient is progressed. Physical Therapy Plan Next Visit Focus/Plan Next Note Type Treatment Note Next Visit Plan Possible discharge next visits if no more complaint.
--- NOTE | 2018-06-14 15:00 | PT.OPDS ---
Current Diagnoses Other spondylosis with radiculopathy, lumbar region (04/04/18) Spinal stenosis, lumbar region with neurogenic claudication (04/04/18) Provider Visit Care Team Role Provider Type Miguel Ruano MD Primary Care Provider Physician Specialty: Internal Medicine Address: [address] [place] [address], [id number] Email: [email or web address] Jacques MD Attending Provider Physician Specialty: Orthopedic Surgery Address: [address] [place] [address], [id number] Email: [email or web address] Visit Number Visit Number 13 Discharge Summary PT-OP-B Current Condition Start: 01/23/18 17:09 Freq: Status: Active Protocol: Document 01/23/18 17:20 EA (Rec: 01/25/18 07:29 EA [id number]) Current Condition History of Current Condition Onset Date s/p L4-L5 TLIF w/ POST INSTRUMENTATION Current Complaints Decreased activity tolerance due to low back pain History of Current Condition May/2017 sudden onset of low back pain with radiation to left LLE. Patient underwent L4 -L5 TLIF with posterior instrumentation on 12/02/17. Patient reports compliant with HEP and restrictions. Main complaint today is decreased tolerance to activities in standing due to low back pain and weakness to both LE's and lumbar area. Pt reports Healing went well with no infection. Prior Treatments and Tests 12/21/17 recent follow up to her surgeon. Future Testing and Treatments Planned None identified Treatment Goals Patient/Caregiver Goals Patient wants to get back to PLOF Prior Functional Status Baseline Function- ADL's Independent Baseline Function- Mobility Independent Baseline Function- Gait No limitation prior to the onset of back pain last 2017 Baseline Function- Work/School Retired Baseline Function- Recreation/Hobbies Retired Current Functional Impairments (Reported) Functional Limitations- ADL's Limited in all activites that requires standing and lifting. Functional Limitations- Mobility/Gait unable to walk more than 5 mins Functional Limitations- Recreation/ Unable to perform regular Hobbies daily cooking due to increased in low back pain. PT-OP-C Subjective Start: 01/23/18 17:09 Freq: Status: Active Protocol: Document 06/14/18 14:56 EA (Rec: 06/14/18 15:00 EA [id number]) OP-PT Subjective Patient Comments Patient Comments Pt did not show up on the last appointment for a discharge recommendation. Call is made today and patient's phone number has been change. PT-OP-G Mobility & Gait Start: 01/23/18 17:09 Freq: Status: Active Protocol: Document 01/23/18 17:30 EA (Rec: 01/26/18 13:19 EA [id number]) OP Mobility Evaluation Bed Mobility Rolling Indep with mild difficulty Supine to and from Sit INdep with mild difficulty Transfers Sit to Stand Indep Bed to Chair Transfers Indep Functional Movements Lifting and Carrying Restriction to <10 lbs Squats Sit to stand requires both hands for support OP Gait Assessment Gait Gait Assistance Required: Independent Able to Maintain Weight Bearing Status Yes During Gait Assistive Devices Assistive Device None PT-OP-J Posture/Palpation/Skin Start: 01/23/18 17:09 Freq: Status: Active Protocol: Document 03/22/18 10:28 EA (Rec: 03/22/18 10:33 EA [id number]) Posture Evaluation Comments Posture Comments Fair posture PT-OP-K Range of Motion Start: 01/23/18 17:09 Freq: Status: Active Protocol: Document 01/23/18 17:30 EA (Rec: 01/26/18 13:19 EA [id number]) Lumbar Spine Range of Motion Lumbar Spine Active ROM Limitations Pain Comments Not tested at this time due to precautions Hip Goniometric Range of Motion Hip Measured in Degrees Left Hip ROM WFL Yes Testing Position Supine Right Hip ROM WFL Yes Knee Goniometric Range of Motion Knee Measured in Degrees Right Knee ROM WFL Yes Left Knee ROM WFL Yes PT-OP-L Special Tests Start: 01/23/18 17:09 Freq: Status: Active Protocol: Document 01/23/18 17:30 EA (Rec: 01/26/18 13:19 EA [id number]) Special Tests Lumbar Spine Special Tests Other- 1 Test Results No Lumbar special tests perform at this time due to pre-cautions PT-OP-M Strength Start: 01/23/18 17:09 Freq: Status: Active Protocol: Document 01/23/18 17:34 EA (Rec: 01/23/18 17:38 EA [id number]) Hip Strength Hip Manual Muscle Testing Right Flexion (L2) 3+ Fair+ Extension (S1) 4- Good- Abduction 3+ Fair+ Adduction 4 Good External Rotation 4- Good- Internal Rotation 4- Good- Left Flexion (L2) 3+ Fair+ Extension (S1) 4- Good- Abduction 3+ Fair+ Adduction 4 Good External Rotation 4- Good- Internal Rotation 4- Good- Knee Strength Knee Manual Muscle Testing Right Flexion (S2) 4 Good Extension (L3) 4 Good Left Flexion (S2) 4 Good Extension (L3) 4 Good Ankle/Foot Strength Ankle and Foot Manual Muscle Testing Right Dorsiflexion (L4) 4 Good Plantarflexion (S1) 4 Good Inversion 4 Good Eversion (S1) 4 Good Left Dorsiflexion (L4) 4 Good Inversion 4 Good Eversion (S1) 4 Good PT-OP-T Assessment and Plan Start: 01/23/18 17:09 Freq: Status: Active Protocol: Document 06/14/18 14:56 KATIA (Rec: 06/14/18 15:00 KATIA [id number]) Physical Therapy Assessment Assessment Summary Assessment Patient is discharge due to no longer attending appointment. Physical Therapy Plan Discharge Physical Therapy Discharge Reasons No Longer Attending PT
== END 2018-04-05 12:05 ==
LOC: PHYS 12:15
PROVIDERS: PCP Internal Medicine; Visit Provider Orthopaedic Surgery Orthopaedic Surgery of the Spine
DX: M48.062 Spinal stenosis, lumbar region with neurogenic claudication (principal); M47.26 Other spondylosis with radiculopathy, lumbar region
CPT/HCPCS: 97010; 97014; 97032; 97110; 97140; 97161; 97535; G0283

== ENCOUNTER 2018-05-09 16:55 | Inpatient (IN) | payer MEDICARE, OTHER, SELFPAY ==
[2017-12-02 14:16] VITALS: BMI 23.8
[2018-05-09] VITALS (11 sets, daily range): BP systolic 89–156; BP diastolic 44–107; PULSE 101–110; RESP 14–24; TEMP 34.1–36.9; O2SAT 78–100; BMI 20.6
--- NOTE | 2018-05-09 17:11 | ED_ITS ---
HPI - Head Injury General Chief complaint: Trauma Stated complaint: GLF last night, unknown downtime Time Seen by Provider: 05/09/18 17:07 Source: patient, EMS and old records reviewed Mode of arrival: EMS Limitations: no limitations History of Present Illness HPI Narrative: this is a 77-year-old female comes to the emergency department with complaint of fall and being on the floor for an unknown exact downtime. Patient states she does remember initially Falling. It appeared that she had fallen at some point been able to get back in bed and then fallen again out of the bed or trying to get out of the bed. EMS states there was blood throughout the room. She had blood from her forehead as well as her nose and possibly her ear. Patient also has multiple bruises. She lives with her but they sl eep in separate areas of the house and do not normally talk with each other so her had not seen her since last night. Patient does take Plavix daily. She currently denies any headache, she denies any neck pain but does have discomfort in her mid back she prefers to lay on her right side upon arrival to the ER. She is alert and oriented but is very cold. Patient is denying any shortness of breath or chest pain, she is denying any abdominal pain. She is denying any nausea or vomiting currently and no other GI or urinary symptoms there does not appear to be any bloody stools or diarrhea in her underwear. Patient does take medication for blood pressure as well as dyslipidemia. She has had a recent lumbar fusion. Related Data Home Medications Medication Instructions Recorded Confirmed CALCIUM CARBONATE (#CALTRATE 600) 600 mg PO BID #0 11/16/10 12/02/17 aspirin 81 mg PO QDAY #0 02/13/16 12/02/17 clopidogrel 75 mg PO DAILY #0 07/20/16 05/09/18 terbinafine HCl 250 mg PO Q3D 11/29/17 11/29/17 atorvastatin 40 mg PO DAILY 05/09/18 05/09/18 Previous Rx's Medication Instructions Recorded tramadol 50 mg tablet 50 mg PO QID PRN #30 tab 09/12/17 acetaminophen 650 mg PO Q6HR PRN #60 tab 12/03/17 docusate sodium 100 mg PO BID #60 cap 12/03/17 hydroxyzine pamoate 25 mg PO Q6HR #40 cap 12/03/17 oxycodone 5 mg PO Q4-6H PRN #60 cap 12/03/17 Allergies Allergy/AdvReac Type Severity Reaction Status Date / Time No Known Drug Allergies Allergy Verified 05/09/18 18:18 Review of Systems Review of Systems ROS Unobtainable: All systems reviewed & are unremarkable except as noted in HPI and below Constitutional Denies chills, Denies fever(s), Denies lethargy, Denies weakness and Reports other ( head injury) Eyes Denies blurry vision and Denies change in vision ENT Ears, Nose, Mouth, and Throat: Reports epistaxis, Denies neck pain and Reports other ( cut on forehead) Cardiovascular Denies chest pain, Reports syncope ( patient unsure), Denies edema, Denies irregular heart rhythm, Denies lightheadedness, Denies radiating jaw, neck or arm pain, Denies palpitations, Denies dyspnea, Denies dyspnea on exertion and Denies orthopnea Respiratory Denies change in phlegm color, Denies chest congestion, Denies cough, Denies hemoptysis, Reports pain on inspiration, Denies dyspnea, Denies dyspnea on exertion and Denies wheezing Gastrointestinal Gastrointestinal: Denies abdominal pain, Denies melena, Denies hematochezia, Denies change in bowel habits, Denies diarrhea, Denies nausea and Denies vomiting Genitourinary Denies hematuria, Denies dysuria, Denies pelvic pain, Denies flank pain and Denies urinary urgency Musculoskeletal Reports as per HPI, Reports back pain, Reports myalgias, Denies neck pain, Denies numbness, Denies radiating pain into limb and Denies tingling Integumentary/Breasts Reports unusual bruising and Reports wounds Neurologic Reports as per HPI, Denies confusion, Reports syncope ( patient unsure), Denies focal weakness, Denies numbness, Denies tingling and Denies weakness Psychiatric Denies confusion Endocrine Denies palpitations Allergic/Immunologic Denies wheezing [facility] Medical History Hypertension (Chronic 06/06/17) Hyperlipidemia (Chronic 04/20/16) Peripheral arterial disease (Chronic 02/13/16) Diverticulosis of large intestine without hemorrhage (Chronic 04/22/15) Osteoporosis (Chronic 04/22/15) Former smoker (Inactive 04/20/16) 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) Vascular claudication (Chronic 04/20/16) 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 Patient appears in moderate distress. HEAD: patient has a small laceration over the right lateral brow, she has dried blood from bilateral nares and some dried blood in the left ear, no Simpson sign, patient has ecchymosis periorbitally around the left eye. NECK: Nontender, painless range of motion, trachea midline negative Nexus criteria, there is no mid line tenderness of the neck, distracting injury, altered mental status, neuro deficit, recent EtOH. EYES: PERRLA, EOMI ENT: see above, trachea is midline, right TM is normal no hemotypanum although there is dried blood in the left ear and I am unable to visualize the left TM,, Nares bilateral dried blood, no septal hematoma, no dental or oral injury, airway is normal and with normal occlusion, No bony tenderness, no malocclusion RESP: Chest is nontender and has symmetric movement, no ecchymosis, breath sounds are normal no crackles, wheezes or rales, no flail chest. CVS: Heart sounds are normal, no murmur noted, No JVD. ABG/GI: Nontender, soft, normal bowel sounds, no distention, no organomegaly, pelvic rock is Negative NEURO: Oriented AOx3, neuro is grossly intact, sensation and motor is normal all 4 extremities moving, cranial nerves II through XII are intact, GCS is 15 PSYCH: Normal mood and affect SKIN: Intact, warm and dry, no crepitus and without decubitus, patient has multiple areas of ecchymosis on her upper extremity as well as large area of ecchymosis on her left shoulder, and small areas on her torso and back. BACK: No CVA tenderness, Mild mid thoracic vertebral tenderness in the T 6-8 range, no step-off's, no crepitus EXT: Atraumatic, hips are nontender, no pedal edema, normal color and temperature, normal range of motion of extremities with normal tendon exam, 2+ pulses in all four extremities Initial Vital Signs Initial Vital Signs: Vital Signs Temperature 93.3 F L 05/09/18 17:00 Pulse Rate 101 H 05/09/18 17:00 Respiratory Rate 22 05/09/18 17:00 Blood Pressure 156/101 H 05/09/18 17:00 Pulse Oximetry 78 L 05/09/18 17:00 Scores GCS Teller coma scale eye opening: Spontaneous Richard coma scale verbal response: Orientated Richard coma scale motor response: Obey commands Teller coma scale total score: 15 Course Orders Ordered: ED Orders 05/09/18 17:07 Complete Blood Count AUTO DIFF Stat 05/09/18 17:08 EKG-12 Lead Stat 05/09/18 17:09 CT cervical spine wo con Stat CT chest abd pel w con Stat CT head/brain wo con Stat XR chest 1V Stat 05/09/18 17:53 Comprehensive Metabolic Panel Stat Ethanol (ETOH) Stat Lactate (Lactic Acid) Urgent Lipase Stat Partial Thromboplastin Time Stat Prothrombin Time INR Stat Troponin & CK Cardiac Panel Stat Type and Screen Stat 05/09/18 17:58 Procalcitonin Stat 05/09/18 18:31 Urinalysis and Microscopic Stat Urine Culture Stat Urine Drug Screen, Rapid Stat 05/09/18 19:50 Education, smoking cessation ONGOING Fentanyl (Sublimaze) 25 mcg IV Q1H PRN PRN Reason: Pain, Severe (7-10) Last Admin: 05/09/18 19:45 Dose: 25 mcg Admin: 05/09/18 18:01 Dose: 25 mcg Admin: 05/09/18 17:34 Dose: 25 mcg Sodium Chloride (Normal Saline 0.9%) 1,000 mls @ 150 mls/hr IV CONT MATTHEW Last Infusion: 05/09/18 19:29 Dose: 0 mls/hr Infusion: 05/09/18 18:43 Dose: 1,000 mls/hr Admin: 05/09/18 17:30 Dose: 150 mls/hr Discontinued Medications Diphtheria/Tetanus/Acell Pertussis (Adacel) 0.5 ml IM .ONCE ONE Stop: 05/09/18 18:41 Last Admin: 05/09/18 18:41 Dose: 0.5 ml Fentanyl (Sublimaze) 25 mcg IV NOW ONE Stop: 05/09/18 17:09 Last Admin: 05/09/18 18:26 Dose: Not Given Vital Signs - 8 hr 05/09/18 17:00 05/09/18 17:40 05/09/18 19:15 Temperature 93.3 F L 93.3 F L 98.2 F Pulse Rate 101 H 101 H 108 H Respiratory Rate 22 22 24 Blood Pressure 156/101 H 156/101 H Blood Pressure [Left Arm] 97/82 Pulse Oximetry 78 L 78 L 96 05/09/18 19:35 Temperature 98.5 F Pulse Rate 107 H Respiratory Rate 23 Blood Pressure Blood Pressure [Left Arm] 124/47 L Pulse Oximetry 98 MDM - Head Injury Lab Data Attestation: I reviewed the patient's lab results. Result diagrams: 05/09/18 17:07 05/09/18 17:53 Lab Results 05/09/18 05/09/18 05/09/18 Range/Units 17:07 17:53 17:53 WBC 20.3 H (4.5-11.0) X10^3/uL RBC 2.72 L (4.0-5.2) X10^6/uL Hgb 9.7 L (12.0-16.0) g/dL Hct 29.7 L (36-46) % MCV 108.9 H (80-100) fL MCH 35.5 H (26-34) PG MCHC 32.6 (30-36) % RDW 14.7 (11.6-14.8) % Plt Count 242 (150-400) X10^3/uL Neut % (Auto) Not Reportable Lymph % (Auto) Not Reportable [place] % (Auto) Not Reportable Eos % (Auto) Not Reportable Baso % (Auto) Not Reportable Lymph # (Auto) Not Reportable [place] # (Auto) Not Reportable Baso # (Auto) Not Reportable Total Counted 100 Seg Neutrophils % 73.0 H (38-70) % Band Neutrophils % 9.0 H (3-7) % Lymphocytes % (Manual) 9.0 L (25-45) % Monocytes % (Manual) 7.0 (2-11) % Metamyelocytes % 2.0 H (-0) % Neutrophils # (Manual) 10746 H (0801-7925) /uL RBC Morphology See below Macrocytosis 1+ H PT 13.5 H (10.1-12.7) SECONDS INR 1.2 (0.9-1.3) APTT 24 L D (26.4-36.2) SECONDS Sodium 138 (137-145) mmol/L Potassium 4.7 (3.4-5.1) mmol/L Chloride 104 (98-107) mmol/L Carbon Dioxide 15 L (22-32) mmol/L BUN 19 H (7-17) mg/dL Creatinine 1.40 H (0.52-1.04) mg/dL Estimated GFR 36.3 L (>60) mL/min BUN/Creatinine Ratio 13.6 (6-22) Glucose 84 (80-110) mg/dL Lactate (0.7-2.1) mmol/L Calcium 8.4 (8.4-10.2) mg/dL Total Bilirubin 0.6 (0.2-1.3) mg/dL AST 39 H (14-36) IU/L ALT 37 (9-52) IU/L Alkaline Phosphatase 68 (38-126) U/L Total Creatine Kinase 129 (30-135) U/L CK-MB (CK-2) 4.31 H (<2.37) ng/mL CK-MB (CK-2) Rel Index 3.3 (1.5-5.0) % Troponin I < 0.012 (0.01-0.034) ng/mL Total Protein 5.6 L (6.3-8.2) g/dL Albumin 3.2 L (3.5-5.0) g/dL Globulin 2.4 (1.7-4.1) g/dL Albumin/Globulin Ratio 1.3 (1.0-2.8) Lipase 431 H (23-300) U/L Procalcitonin (<0.5) ng/mL Urine Color Urine Appearance Urine pH (4.5-8.0) Ur Specific [place] (1.000-1.035) Urine Protein (Negative) Urine Glucose (UA) (Negative) g/dL Urine Ketones (NEGATIVE) Urine Occult Blood (Negative) Urine Nitrate (Negative) Urine Bilirubin (NEGATIVE) Urine Urobilinogen (0.2) E.U./dL Ur Leukocyte Esterase (NEGATIVE) Urine RBC (0-5/HPF) Urine WBC (0-5/HPF) Ur Squamous Epith Cells Ur Transition Epith Cell (0-5/HPF) Amorphous Sediment Urine Bacteria (None) Hyaline Casts (None) Granular Casts (None) Urine Mucus (Negative) Ur Culture Indicated? Urine Opiates Screen (Negative) Ur Oxycodone Screen (Negative) Urine Methadone Screen (Negative) Ur Barbiturates Screen (Negative) U Tricyclic Antidepress (Negative) Ur Phencyclidine Scrn (Negative) Ur Amphetamines Screen (Negative) U Methamphetamines Scrn (Negative) Ur MDMA Scrn (Ecstasy) (Negative) U Benzodiazepines Scrn (Negative) Urine Cocaine Screen (Negative) U Marijuana (THC) Screen (Negative) Ethyl Alcohol < 10 mg/dL Blood Type Antibody Screen 0305/09/18 05/09/18 Range/Units 17:53 17:53 17:58 WBC (4.5-11.0) X10^3/uL RBC (4.0-5.2) X10^6/uL Hgb (12.0-16.0) g/dL Hct (36-46) % MCV (80-100) fL MCH (26-34) PG MCHC (30-36) % RDW (11.6-14.8) % Plt Count (150-400) X10^3/uL Neut % (Auto) Lymph % (Auto) [place] % (Auto) Eos % (Auto) Baso % (Auto) Lymph # (Auto) [place] # (Auto) Baso # (Auto) Total Counted Seg Neutrophils % (38-70) % Band Neutrophils % (3-7) % Lymphocytes % (Manual) (25-45) % Monocytes % (Manual) (2-11) % Metamyelocytes % (-0) % Neutrophils # (Manual) (6543-0168) /uL RBC Morphology Macrocytosis PT (10.1-12.7) SECONDS INR (0.9-1.3) APTT (26.4-36.2) SECONDS Sodium (137-145) mmol/L Potassium (3.4-5.1) mmol/L Chloride (98-107) mmol/L Carbon Dioxide (22-32) mmol/L BUN (7-17) mg/dL Creatinine (0.52-1.04) mg/dL Estimated GFR (>60) mL/min BUN/Creatinine Ratio (6-22) Glucose (80-110) mg/dL Lactate 9.7 H (0.7-2.1) mmol/L Calcium (8.4-10.2) mg/dL Total Bilirubin (0.2-1.3) mg/dL AST (14-36) IU/L ALT (9-52) IU/L Alkaline Phosphatase (38-126) U/L Total Creatine Kinase (30-135) U/L CK-MB (CK-2) (<2.37) ng/mL CK-MB (CK-2) Rel Index (1.5-5.0) % Troponin I (0.01-0.034) ng/mL Total Protein (6.3-8.2) g/dL Albumin (3.5-5.0) g/dL Globulin (1.7-4.1) g/dL Albumin/Globulin Ratio (1.0-2.8) Lipase (23-300) U/L Procalcitonin 0.05 (<0.5) ng/mL Urine Color Urine Appearance Urine pH (4.5-8.0) Ur Specific [place] (1.000-1.035) Urine Protein (Negative) Urine Glucose (UA) (Negative) g/dL Urine Ketones (NEGATIVE) Urine Occult Blood (Negative) Urine Nitrate (Negative) Urine Bilirubin (NEGATIVE) Urine Urobilinogen (0.2) E.U./dL Ur Leukocyte Esterase (NEGATIVE) Urine RBC (0-5/HPF) Urine WBC (0-5/HPF) Ur Squamous Epith Cells Ur Transition Epith Cell (0-5/HPF) Amorphous Sediment Urine Bacteria (None) Hyaline Casts (None) Granular Casts (None) Urine Mucus (Negative) Ur Culture Indicated? Urine Opiates Screen (Negative) Ur Oxycodone Screen (Negative) Urine Methadone Screen (Negative) Ur Barbiturates Screen (Negative) U Tricyclic Antidepress (Negative) Ur Phencyclidine Scrn (Negative) Ur Amphetamines Screen (Negative) U Methamphetamines Scrn (Negative) Ur MDMA Scrn (Ecstasy) (Negative) U Benzodiazepines Scrn (Negative) Urine Cocaine Screen (Negative) U Marijuana (THC) Screen (Negative) Ethyl Alcohol mg/dL Blood Type AB Positive Antibody Screen Negative 05/09/18 05/09/18 Range/Units 18:31 18:31 WBC (4.5-11.0) X10^3/uL RBC (4.0-5.2) X10^6/uL Hgb (12.0-16.0) g/dL Hct (36-46) % MCV (80-100) fL MCH (26-34) PG MCHC (30-36) % RDW (11.6-14.8) % Plt Count (150-400) X10^3/uL Neut % (Auto) Lymph % (Auto) [place] % (Auto) Eos % (Auto) Baso % (Auto) Lymph # (Auto) [place] # (Auto) Baso # (Auto) Total Counted Seg Neutrophils % (38-70) % Band Neutrophils % (3-7) % Lymphocytes % (Manual) (25-45) % Monocytes % (Manual) (2-11) % Metamyelocytes % (-0) % Neutrophils # (Manual) (0173-0123) /uL RBC Morphology Macrocytosis PT (10.1-12.7) SECONDS INR (0.9-1.3) APTT (26.4-36.2) SECONDS Sodium (137-145) mmol/L Potassium (3.4-5.1) mmol/L Chloride (98-107) mmol/L Carbon Dioxide (22-32) mmol/L BUN (7-17) mg/dL Creatinine (0.52-1.04) mg/dL Estimated GFR (>60) mL/min BUN/Creatinine Ratio (6-22) Glucose (80-110) mg/dL Lactate (0.7-2.1) mmol/L Calcium (8.4-10.2) mg/dL Total Bilirubin (0.2-1.3) mg/dL AST (14-36) IU/L ALT (9-52) IU/L Alkaline Phosphatase (38-126) U/L Total Creatine Kinase (30-135) U/L CK-MB (CK-2) (<2.37) ng/mL CK-MB (CK-2) Rel Index (1.5-5.0) % Troponin I (0.01-0.034) ng/mL Total Protein (6.3-8.2) g/dL Albumin (3.5-5.0) g/dL Globulin (1.7-4.1) g/dL Albumin/Globulin Ratio (1.0-2.8) Lipase (23-300) U/L Procalcitonin (<0.5) ng/mL Urine Color Yellow Urine Appearance Clear Urine pH 5.0 (4.5-8.0) Ur Specific [place] 1.015 (1.000-1.035) Urine Protein Trace H (Negative) Urine Glucose (UA) Negative (Negative) g/dL Urine Ketones Negative (NEGATIVE) Urine Occult Blood 2+ H (Negative) Urine Nitrate Negative (Negative) Urine Bilirubin Negative (NEGATIVE) Urine Urobilinogen 0.2 (0.2) E.U./dL Ur Leukocyte Esterase Negative (NEGATIVE) Urine RBC 1-5/hpf (0-5/HPF) Urine WBC 5-10/hpf H (0-5/HPF) Ur Squamous Epith Cells 0-1 /hpf Ur Transition Epith Cell 0-1/hpf (0-5/HPF) Amorphous Sediment 1+ Urine Bacteria Few (2-10) H (None) Hyaline Casts 5-10/lpf (None) Granular Casts 1-5/lpf (None) Urine Mucus 2+ H (Negative) Ur Culture Indicated? Specimen cultured Urine Opiates Screen Negative (Negative) Ur Oxycodone Screen Negative (Negative) Urine Methadone Screen Negative (Negative) Ur Barbiturates Screen Negative (Negative) U Tricyclic Antidepress Negative (Negative) Ur Phencyclidine Scrn Negative (Negative) Ur Amphetamines Screen Negative (Negative) U Methamphetamines Scrn Negative (Negative) Ur MDMA Scrn (Ecstasy) Negative (Negative) U Benzodiazepines Scrn Negative (Negative) Urine Cocaine Screen Negative (Negative) U Marijuana (THC) Screen Negative (Negative) Ethyl Alcohol mg/dL Blood Type Antibody Screen Imaging Data CT scan - head: Radiologist's impression: [place] [address] CT Scan Report Signed Patient: Taniya Johnson LMR#: [id number] : 9Acct:[id number] Age/Sex: 77 / FDate of Service: 05/09/18 Loc: ED Accession Number: [id number] Procedure: CT head/brain wo con Ordering Provider: Luh Mejia D.O. PROCEDURE: CT HEAD/BRAIN WO CON INDICATIONS: fall, head injury, lac eye, thoracic back pain, blood in ear TECHNIQUE: Noncontrast 4.5 mm thick angled axial sections acquired from the foramen magnum to the vertex, with coronal and sagittal reformats. For radiation dose reduction, the following was used: automated exposure control, adjustment of mA and/or kV according to patient size. COMPARISON: None. FINDINGS: Image quality: Excellent. CSF spaces: Basal cisterns are patent. No extra-axial fluid collections. The ventricles are symmetric in size and shape. Brain: No intracranial bleeds or masses. There is cerebral volume loss for age, with resultant ventricular and sulcal prominence. There are periventricular and moderate deep white matter chronic small vessel ischemic changes. 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 There is intracranial internal carotid art roselyn atherosclerosis. Skull and face: Calvarium and visualized facial bones appear intact, without suspicious lesions. Sinuses: Previous bilateral maxillary sinus surgery. No acute sinus disease. IMPRESSION: 1. Age related volume loss, moderate small vessel ischemic change, old left subi nsular lacunar infarct. 2. Negative for acute stroke, hemorrhage, or mass. 3. No displaced skull fractures. Dictated by: Eldon Rogers M.D. on 05/09/2018 at 17:40 Approved by: Eldon Rogers M.D. on 05/09/2018 at 17:43 CT C-spine: Radiologist's impression: Taniya Johnson 77 F 1940 [place] [address] CT Scan Report Signed Patient: Taniya Johnson LMR#: [id number] : 9Acct:[id number] Age/Sex: 77 / FDate of Service: 05/09/18 Loc: ED Accession Number: [id number] Procedure: CT cervical spine wo con Ordering Provider: Luh Mejia D.O. PROCEDURE: CT CERVICAL SPINE WO CON INDICATIONS: fall, head injury, lac eye, thoracic back pain, blood in ear TECHNIQUE: Noncontrast 3 mm thick sections acquired from the skull base to the T4 level. Sagittal and coronal reformats were then constructed. For radiation dose reduction, the following was used: automated exposure control, adjustment of mA and/or kV according to patient size. COMPARISON: None. FINDINGS: Image quality: Excellent. Bones: No fractures or dislocations. Visualized superior ribs are intact. Severe cervical spondylitic change present. Findings include severe bilateral foraminal narrowing at C3-C4 and C4-C5. There is multilevel facet hypertrophy. Soft tissues: Prevertebral soft tissues are normal in thickness. No paravertebral hematomas. No apical pneumothoraces. Biapical centrilobular emphysema, moderate to severe. IMPRESSION: 1. No evidence of cervical fracture or dislocation. 2. Moderate to severe cervical spondylitic change. 3. Centrilobular emphysema. Dictated by: Eldon Rogers M.D. on 05/09/2018 at 17:43 Approved by: Eldon Rogers M.D. on 05/09/2018 at 17:47 CT chest abdomen pelvis: Radiologist's impression: [facility] DATE TYPE STATUS AUTHOR Hx 05/09/18 17:09 Eldon Rogers 05/09/18 17:09 Hoang Ocampo 05/09/18 17:09 Eldon Rogers 05/09/18 17:09 Eldon Rogers 12/02/17 00:00 Hoang Ocampo 11/22/17 13:05 Stress TEST 09/15/17 07:39 Dee Mckeon Jacqueline L 77, F102/20/1940 ADM IN, ED.LOC - Main ED: R01 Search Chart NF - Not included in interaction checking ONSET 06/06/17 04/20/16 02/13/16 04/22/15 04/22/15 04/20/16 04/20/16 04/20/16 02/17/15 Today 19:35 Taniya Johnson 77 F 1940 [place] [address] CT Scan Report Signed Patient: Taniya Johnson LMR#: [id number] : 1940cct:[id number] Age/Sex: 77 / FDate of Service: 05/09/18 Loc: ED Accession Number: [id number] Procedure: CT chest abd pel w con Ordering Provider: Luh Mejia D.O. PROCEDURE: CT CHEST ABD PEL W CON INDICATIONS: fall, head injury, lac eye, thoracic back pain, blood in ear TECHNIQUE: After the administration of intravenous contrast, 5 mm thick sections acquired from the lung apices to the symphysis. 2.5 mm thick coronal and sagittal reformats were acquired. Additional 7 mm thick coronal maximum intensity projection (MIP) reformats acquired through the lungs. Optional 10-minute delayed imaging may be performed from the kidneys to the bladder. For radiation dose reduction, the following was used: automated exposure control, adjustment of mA and/or kV according to patient size. COMPARISON: [facility], CR, XR LUMBAR SPINE 2 OR 3 VIEWS, 04/13/2018, 15:19. FINDINGS: Image quality: Excellent. CHEST: Lungs: No pulmonary contusions or lacerations. No acute airspace opacities. No pneumothorax or hemothorax. Moderate biapical centrilobular emphysema. Central and peripheral airways appear patent and normal in caliber. Mediastinum: No mediastinal hematomas. Heart size is normal. No pericardial effusion. Thoracic aorta and pulmonary arteries demonstrate normal size and enhancement. No mediastinal or hilar adenopathy. Esophagus is normal in caliber. No hiatal hernia. Chest wall: Posterior right 12th rib fracture is probably acute. No subcutaneous emphysema. No axillary or supraclavicular adenopathy. Thyroid gland is unremarkable. ABDOMEN: Solid organs: Liver is normal in size and enhancement, without lacerations. Gallbladder is unremarkable. Biliary system is non-dilated. Pancreas enhances normally, without transection. Spleen is normal in size and enhancement, without lacerations. No adrenal hematomas. Both kidneys enhance normally, without hydronephrosis or lace rations. Peritoneum and bowel: No free fluid or air. Unenhanced bowel loops demonstrate normal wall thickness and caliber. Sigmoid diverticulosis without evidence of diverticulitis. Nodes and vessels: No retroperitoneal or mesenteric adenopathy. Aorta and inferior vena cava are normal in size and enhancement. Miscellaneous: No ventral hernias. PELVIS: Genitourinary: Bladder is completely decompressed. Miscellaneous: No inguinal hernias or adenopathy. Bones: Pelvic ring and hip joints appear intact. There is a prominent, large Schmorl's node of T12 superior endplate which is likely a chronic finding. A mild to moderate superior endplate compression fracture of T7 is of uncertain acuity. There is a posterior right 12th rib fracture which is probably acute. IMPRESSION: 1. A posterior right 12th rib fracture is probably acute. 2. A mild to moderate superior endplate compression fracture of T7 is of uncertain acuity. 3. Moderate centrilobular emphysema. 4. Sigmoid diverticulosis. Dictated by: Eldon Rogers M.D. on 05/09/2018 at 17:51 Approved by: Eldon Rogers M.D. on 05/09/2018 at 18:01 Chest x-ray: Radiologist's impression: [address] [address] XRay Report Signed Patient: Taniya Johnson LMR#: [id number] : 9Acct:[id number] Age/Sex: 77 / FDate of Service: 05/09/18 Loc: ED Accession Number: [id number] Procedure: XR chest 1V Ordering Provider: Luh Mejia D.O. PROCEDURE: XR CHEST 1V INDICATIONS: fall, head injury, back pain TECHNIQUE: One view of the chest was acquired. COMPARISON: [facility], CHEST 2 VIEW, 12/18/2009, 15:07. FINDINGS: Surgical changes and devices: None. Lungs and pleura: Lungs are clear. No pleural effusions or pneumothorax. Mediastinum: Mediastinal contours appear normal. Heart size is normal. There is aortic atherosclerosis. Bones and chest wall: No suspicious bony lesions. Degenerative changes of the spine and shoulders are present. The bone mineralization appears decreased. Overlying soft tissues appear unremarkable. IMPRESSION: Negative chest. No acute cardiopulmonary process is evident. Dictated by: Hoang Ocampo M.D. on 05/09/2018 at 16:22 Approved by: Hoang Ocampo M.D. on 05/09/2018 at 16:23 ECG Data Attestation: I personally reviewed and interpreted this ECG as follows: Interpretation: sinus tachycardia ventricular rate of 118 MT interval of 209 QRS is 64 and QTC of 396. patient has no ST elevation appreciated. No ST depression appreciated. [facility] Narrative Medical decision making narrative: Patient's imaging shows a T7 compression fracture as well as a single right rib fracture at rib 12, patient has a Schmorl's node which is likely incidental and finding. Patient's C-collar was cleared here in the department after imaging. She is more comfortable and is becoming warmer with time with the Norberto Hugger as well as some warmed IV fluids. Patient's white count is elevated but suspect that may be reactive. Procalcitonin was sent at the request of Dr. Oro. Patient does appear to have some anemia, her renal function is slightly elevated at 1.4 although her BUN is consistent with recent. Patient has had very little urine output and a Dela Cruz catheter was placed for strict I&Os. Patient continues to receive fluids. Her lactate was 9 here in the department which is likely secondary to lying on the floor although her CPK is not elevated so rhabdo is less likely at this time. Lipase is slightly elevated at 431. procalcitonin is found to be 0.05. Urine shows some but no nitrates or leukocyte esterase, patient does have some urine occult blood. Patient's U tox is negative. she has been normotensive here and is improving. Spoke with Dr. Oro who accepts him plans for floor care at this time. Discharge Plan Departure Patient Disposition: Admitted As Inpatient Clinical Impression: Acidosis, lactic, Fall, Closed wedge compression fracture of T7 vertebra, Closed rib fracture, Acute kidney injury Admit Date/Time: 05/09/18 19:46 Admit Provider: Deshaun Oro
[2018-05-09 17:20] LABS: Hematocrit 29.7 % (36-46); Hemoglobin 9.7 g/dL (12.0-16.0); Mean Corpuscular HGB Conc 32.6 % (30-36); Mean Corpuscular Hemoglobin 35.5 PG (26-34); Mean Corpuscular Volume 108.9 fL (80-100); Platelet Count 242 X10^3/uL (150-400); Red Blood Cell Count 2.72 X10^6/uL (4.0-5.2); Red Cell Distribution Width 14.7 % (11.6-14.8); White Blood Cell Count 20.3 X10^3/uL (4.5-11.0)
[2018-05-09 17:26] LABS: Add Manual Diff / Slide Review YES
[2018-05-09] MEDS: SODIUM CHLORIDE 0.9% 1,000 ML 150 ML IV (17:30)
[2018-05-09] MEDS: fentaNYL 100 MCG/2 ML INJ 25 MCG IV ×3 (17:34→19:45)
[2018-05-09 17:45] LABS: Macrocytosis 1+; Neutrophils Absolute Manual 16646 /uL (3000-5900); Total Cells Counted 100
[2018-05-09 18:10] LABS: INR 1.2 (0.9-1.3); Prothrombin Time 13.5 SECONDS (10.1-12.7)
[2018-05-09 18:13] LABS: PTT Partial Thromboplastin Tim 24 SECONDS (26.4-36.2)
[2018-05-09 18:18] LABS: Alanine Aminotransferase 37 IU/L (9-52); Albumin 3.2 g/dL (3.5-5.0); Albumin Globulin Ratio 1.3 (1.0-2.8); Alkaline Phosphatase 68 U/L (38-126); Aspartate Aminotransferase 39 IU/L (14-36); BUN Creatinine Ratio 13.6 (6-22); Bilirubin Total 0.6 mg/dL (0.2-1.3); Blood Urea Nitrogen 19 mg/dL (7-17); Calcium 8.4 mg/dL (8.4-10.2); Carbon Dioxide 15 mmol/L (22-32); Chloride 104 mmol/L (98-107); Creatine Kinase 129 U/L (30-135); Estimated Glomerular Filt Rate 36.3 mL/min (>60); Globulin 2.4 g/dL (1.7-4.1); Glucose 84 mg/dL (80-110); HEMOLYSIS < 15 (0-50); Lipase 431 U/L (23-300); Potassium 4.7 mmol/L (3.4-5.1); Sodium 138 mmol/L (137-145); Total Protein 5.6 g/dL (6.3-8.2)
[2018-05-09 18:19] LABS: Lactate (Lactic Acid) 9.7 mmol/L (0.7-2.1)
[2018-05-09 18:23] LABS: Ethanol (ETOH) < 10 mg/dL
[2018-05-09 18:29] LABS: Troponin I < 0.012 ng/mL (0.01-0.034)
--- NOTE | 2018-05-09 18:29 | PC.NURSE ---
TEMP PROBE PLACED
[2018-05-09 18:33] LABS: CKMB % Relative Index 3.3 % (1.5-5.0); Creatine Kinase MB 4.31 ng/mL (<2.37)
[2018-05-09 18:39] LABS: Appearance Urine UA CLEAR; Bilirubin Urine UA NEGATIVE (NEGATIVE); Color Urine UA YELLOW; Glucose Urine UA NEGATIVE (Negative); Ketones Urine UA NEGATIVE (NEGATIVE); Leukocyte Esterase Urine UA NEGATIVE (NEGATIVE); Nitrite Urine UA NEGATIVE (Negative); Occult Blood Urine UA 2+ (Negative); Protein Urine UA TRACE (Negative); Specific Gravity Urine UA 1.015 (1.000-1.035); Urobilinogen Urine UA 0.2 E.U./dL (0.2)
[2018-05-09 18:40] LABS: Urine Tetrahydrocannabinol Negative (Negative)
[2018-05-09 18:41] LABS: Urine Amphetamines Negative (Negative); Urine Barbiturates Negative (Negative); Urine Benzodiazepines Negative (Negative); Urine Cocaine Negative (Negative); Urine MDMA Negative (Negative); Urine Methadone Negative (Negative); Urine Methamphetamines Negative (Negative); Urine Morphine/Opi cutoff 2000 Negative (Negative); Urine Oxycodone Negative (Negative); Urine Phencyclidine Negative (Negative); Urine Tricyclic Antidepressant Negative (Negative)
[2018-05-09] MEDS: TET,DIPH,PERTUSS(ACELL),VAC/PF 0.5 ML SYRINGE IM (18:41)
--- NOTE | 2018-05-09 18:48 | PC.NURSE ---
1L NaCl infused from ambulance fluids. Increased patient's 2nd liter of NaCl to bolus, per Dr. Mejia's order.
[2018-05-09 18:50] LABS: Amorphous Sediment Urine 1+; RBC Urine 1-5/HPF (0-5/HPF); Squamous Epithelial Cell Urine 0-1 /HPF; Transitional Epi Cells Urine 0-1/HPF (0-5/HPF); WBC Urine 5-10/HPF (0-5/HPF)
[2018-05-09 18:51] LABS: Bacteria Urine Few (2-10); Culture Indicated Urine Specimen Cultured; Granular Casts Urine 1-5/LPF; Hyaline Casts Urine 5-10/LPF; Mucus Urine 2+ (Negative)
[2018-05-09 19:36] LABS: Procalcitonin 0.05 ng/mL (<0.5)
--- NOTE | 2018-05-09 19:50 | PM.HP.1 ---
History of Present Illness Date Patient Seen: 05/09/18 Time Patient Seen: 07:48 Chief complaint: GLF last night, unknown downtime Narrative: Patient seen and examined in the ICU just after transfer. Patient at bedside with 2 daughters. Daughters help in history. Patient states that she fell in the middle of the night and could not get up. She says her room looked like a war zone and there was blood all over. She sustained a fall and a laceration. She has bruising to her eye and her face into multiple parts of her body. She says throughout the evening she could not get up. And then throughout the day could not get up as well. Finally she was able to get to a telephone and make a call to 911. Patient states she was unable to breathe during the call and was only able to give her address. Patient states that she has never called 911 before. Her pain is in her ribs radiating around her back. She says she fell as she is not sure how. She does not think she lost consciousness but she does not remember exactly the incidence around the fall. She remembers trying to get in to bed and unable to do so. She is on good historian. She is aware of the date know she is at [facility]. She lives at home with her . He is in a different part of the house in a different room. She was at least down greater than 12 hr. She says probably longer than that. Currently has complaints of mild facial pain. She has complaints of back pain shortness of breath. She has no leg pain hip pain abdominal pain. She has no nausea. She says she is thirsty and hungry. On arrival to the emergency room. Patient had blood on her face nose ear. She was quite cool in temperature. 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) Vascular claudication (Chronic 04/20/16) 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 sohail/denominational: None travel history: recent ([place]) leisure activities: sports and other (Gardening) Smoking Status: Former smoker Tobacco: How many years used: 40 Smokeless tobacco user: other (Cigarettes) quit status: quit date established (2016) second hand exposure: No alcohol intake: current substance use type: does not use Family & Social History Social History: household members spouse lives independently Yes caregiver/support person Yes: Daughters Tobacco & Substance use: Smoking Status Former smoker alcohol intake current Meds Home Medications Medication Instructions Recorded Confirmed Type CALCIUM CARBONATE (#CALTRATE 600) 600 mg PO BID #0 11/16/10 05/09/18 History aspirin 81 mg PO QDAY #0 02/13/16 05/09/18 History clopidogrel 75 mg PO DAILY #0 07/20/16 05/09/18 History tramadol 50 mg tablet 50 mg PO QID PRN #30 tab 09/12/17 05/09/18 Rx terbinafine HCl 250 mg PO Q3D 11/29/17 05/09/18 History acetaminophen 650 mg PO Q6HR PRN #60 tab 12/03/17 05/09/18 Rx docusate sodium 100 mg PO BID #60 cap 12/03/17 05/09/18 Rx atorvastatin 40 mg PO DAILY 05/09/18 05/09/18 History Allergies Allergy/AdvReac Type Severity Reaction Status Date / Time No Known Drug Allergies Allergy Verified 05/09/18 18:18 Exam Vital Signs (past 8 hours): - 05/09/18 17:00 05/09/18 17:40 05/09/18 19:15 Temperature 93.3 F L 93.3 F L 98.2 F Pulse Rate 101 H 101 H 108 H Respiratory Rate 22 22 24 Blood Pressure 156/101 H 156/101 H Blood Pressure [Left Arm] 97/82 Pulse Oximetry 78 L 78 L 96 05/09/18 19:35 Temperature 98.5 F Pulse Rate 107 H Respiratory Rate 23 Blood Pressure Blood Pressure [Left Arm] 124/47 L Pulse Oximetry 98 Oxygen Delivery Method Nasal Cannula Oxygen Flow Rate [address]: Radiologist's impression: [address] [address] [address] Scan Report Signed Patient: Taniya Johnson LMR#: [id number] : [id number]:[id number] Age/Sex: 77 / FDate of Service: 05/09/18 Loc: ED Accession Number: [id number] Procedure: CT head/brain wo con Ordering Provider: Luh Mejia D.O. PROCEDURE: CT HEAD/BRAIN WO CON INDICATIONS: fall, head injury, lac eye, thoracic back pain, blood in ear TECHNIQUE: Noncontrast 4.5 mm thick angled axial sections acquired from the foramen magnum to the vertex, with coronal and sagittal reformats. For radiation dose reduction, the following was used: automated exposure control, adjustment of mA and/or kV according to patient size. COMPARISON: None. FINDINGS: Image quality: Excellent. CSF spaces: Basal cisterns are patent. No extra-axial fluid collections. The ventricles are symmetric in size and shape. Brain: No intracranial bleeds or masses. There is cerebral volume loss for age, with resultant ventricular and sulcal prominence. There are periventricular and moderate deep white matter chronic small vessel ischemic changes. 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 There is intracranial internal carotid artery atherosclerosis. Skull and face: Calvarium and visualized facial bones appear intact, without suspicious lesions. Sinuses: Previous bilateral maxillary sinus surgery. No acute sinus disease. IMPRESSION: 1. Age related volume loss, moderate small vessel ischemic change, old left subinsular lacunar infarct. 2. Negative for acute stroke, hemorrhage, or mass. 3. No displaced skull fractures. [address] [address] [address] Scan Report Signed Patient: Taniya Johnson LMR#: [id number] : 9Acct:[id number] Age/Sex: 77 / FDate of Service: 05/09/18 Loc: ED Accession Number: [id number] Procedure: CT chest abd pel w con Ordering Provider: Luh Mejia D.O. PROCEDURE: CT CHEST ABD PEL W CON INDICATIONS: fall, head injury, lac eye, thoracic back pain, blood in ear TECHNIQUE: After the administration of intravenous contrast, 5 mm thick sections acquired from the lung apices to the symphysis. 2.5 mm thick coronal and sagittal reformats were acquired. Additional 7 mm thick coronal maximum intensity projection (MIP) reformats acquired through the lungs. Optional 10-minute delayed imaging may be performed from the kidneys to the bladder. For radiation dose reduction, the following was used: automated exposure control, adjustment of mA and/or kV according to patient size. COMPARISON: [facility] [place], [place], XR LUMBAR SPINE 2 OR 3 VIEWS, 04/13/2018, 15:19. FINDINGS: Image quality: Excellent. CHEST: Lungs: No pulmonary contusions or lacerations. No acute airspace opacities. No pneumothorax or hemothorax. Moderate biapical centrilobular emphysema. Central and peripheral airways appear patent and normal in caliber. Mediastinum: No mediastinal hematomas. Heart size is normal. No pericardial effusion. Thoracic aorta and pulmonary arteries demonstrate normal size and enhancement. No mediastinal or hilar adenopathy. Esophagus is normal in caliber. No hiatal hernia. Chest wall: Posterior right 12th rib fracture is probably acute. No subcutaneous emphysema. No axillary or supraclavicular adenopathy. Thyroid gland is unremarkable. ABDOMEN: Solid organs: Liver is normal in size and enhancement, without lacerations. Gallbladder is unremarkable. Biliary system is non-dilated. Pancreas enhances normally, without transection. Spleen is normal in size and enhancement, without lacerations. No adrenal hematomas. Both kidneys enhance normally, without hydronephrosis or lacerations. Peritoneum and bowel: No free fluid or air. Unenhanced bowel loops demonstrate normal wall thickness and caliber. Sigmoid diverticulosis without evidence of diverticulitis. Nodes and vessels: No retroperitoneal or mesenteric adenopathy. Aorta and inferior vena cava are normal in size and enhancement. Miscellaneous: No ventral hernias. PELVIS: Genitourinary: Bladder is completely decompressed. Miscellaneous: No inguinal hernias or adenopathy. Bones: Pelvic ring and hip joints appear intact. There is a prominent, large Schmorl's node of T12 superior endplate which is likely a chronic finding. A mild to moderate superior endplate compression fracture of T7 is of uncertain acuity. There is a posterior right 12th rib fracture which is probably acute. IMPRESSION: 1. A posterior right 12th rib fracture is probably acute. 2. A mild to moderate superior endplate compression fracture of T7 is of uncertain acuity. 3. Moderate centrilobular emphysema. 4. [place] [address] CT Scan Report Signed Patient: Taniya Johnson LMR#: [id number] : [id number]:[id number] Age/Sex: 77 / FDate of Service: 05/09/18 Loc: ED Accession Number: [id number] Procedure: CT cervical spine wo con Ordering Provider: Luh Mejia D.O. PROCEDURE: CT CERVICAL SPINE WO CON INDICATIONS: fall, head injury, lac eye, thoracic back pain, blood in ear TECHNIQUE: Noncontrast 3 mm thick sections acquired from the skull base to the T4 level. Sagittal and coronal reformats were then constructed. For radiation dose reduction, the following was used: automated exposure control, adjustment of mA and/or kV according to patient size. COMPARISON: None. FINDINGS: Image quality: Excellent. Bones: No fractures or dislocations. Visualized superior ribs are intact. Severe cervical spondylitic change present. Findings include severe bilateral foraminal narrowing at C3-C4 and C4-C5. There is multilevel facet hypertrophy. Soft tissues: Prevertebral soft tissues are normal in thickness. No paravertebral hematomas. No apical pneumothoraces. Biapical centrilobular emphysema, moderate to severe. IMPRESSION: 1. No evidence of cervical fracture or dislocation. 2. Moderate to severe cervical spondylitic change. 3. Centrilobular emphysema. Labs Result Diagrams: 05/09/18 17:07 05/09/18 17:53 Labs: Laboratory Results - last 24 hr 05/09/18 05/09/18 05/09/18 17:07 17:53 17:53 WBC 20.3 H RBC 2.72 L Hgb 9.7 L Hct 29.7 L MCV 108.9 H MCH 35.5 H MCHC 32.6 RDW 14.7 Plt Count 242 Neut % (Auto) Not Reportable Lymph % (Auto) Not Reportable [place] % (Auto) Not Reportable Eos % (Auto) Not Reportable Baso % (Auto) Not Reportable Lymph # (Auto) Not Reportable [place] # (Auto) Not Reportable Baso # (Auto) Not Reportable Total Counted 100 Seg Neutrophils % 73.0 H Band Neutrophils % 9.0 H Lymphocytes % (Manual) 9.0 L Monocytes % (Manual) 7.0 Metamyelocytes % 2.0 H Neutrophils # (Manual) 595[address] H RBC Morphology See below Macrocytosis 1+ H PT 13.5 H INR 1.2 APTT 24 L D Sodium 138 Potassium 4.7 Chloride 104 Carbon Dioxide 15 L BUN 19 H Creatinine 1.40 H Estimated GFR 36.3 L BUN/Creatinine Ratio 13.6 Glucose 84 Lactate Calcium 8.4 Total Bilirubin 0.6 AST 39 H ALT 37 Alkaline Phosphatase 68 Total Creatine Kinase 129 CK-MB (CK-2) 4.31 H CK-MB (CK-2) Rel Index 3.3 Troponin I < 0.012 Total Protein 5.6 L Albumin 3.2 L Globulin 2.4 Albumin/Globulin Ratio 1.3 Lipase 431 H Procalcitonin Urine Color Urine Appearance Urine pH Ur Specific [place] Urine Protein Urine Glucose (UA) Urine Ketones Urine Occult Blood Urine Nitrate Urine Bilirubin Urine Urobilinogen Ur Leukocyte Esterase Urine RBC Urine WBC Ur Squamous Epith Cells Ur Transition Epith Cell Amorphous Sediment Urine Bacteria Hyaline Casts Granular Casts Urine Mucus Ur Culture Indicated? Urine Opiates Screen Ur Oxycodone Screen Urine Methadone Screen Ur Barbiturates Screen U Tricyclic Antidepress Ur Phencyclidine Scrn Ur Amphetamines Screen U Methamphetamines Scrn Ur MDMA Scrn (Ecstasy) U Benzodiazepines Scrn Urine Cocaine Screen U Marijuana (THC) Screen Ethyl Alcohol < 10 Blood Type Antibody Screen 05/09/18 05/09/18 05/09/18 17:53 17:53 17:58 WBC RBC Hgb Hct MCV MCH MCHC RDW Plt Count Neut % (Auto) Lymph % (Auto) [place] % (Auto) Eos % (Auto) Baso % (Auto) Lymph # (Auto) [place] # (Auto) Baso # (Auto) Total Counted Seg Neutrophils % Band Neutrophils % Lymphocytes % (Manual) Monocytes % (Manual) Metamyelocytes % Neutrophils # (Manual) RBC Morphology Macrocytosis PT INR APTT Sodium Potassium Chloride Carbon Dioxide BUN Creatinine Estimated GFR BUN/Creatinine Ratio Glucose Lactate 9.7 H Calcium Total Bilirubin AST ALT Alkaline Phosphatase Total Creatine Kinase CK-MB (CK-2) CK-MB (CK-2) Rel Index Troponin I Total Protein Albumin Globulin Albumin/Globulin Ratio Lipase Procalcitonin 0.05 Urine Color Urine Appearance Urine pH Ur Specific [place] Urine Protein Urine Glucose (UA) Urine Ketones Urine Occult Blood Urine Nitrate Urine Bilirubin Urine Urobilinogen Ur Leukocyte Esterase Urine RBC Urine WBC Ur Squamous Epith Cells Ur Transition Epith Cell Amorphous Sediment Urine Bacteria Hyaline Casts Granular Casts Urine Mucus Ur Culture Indicated? Urine Opiates Screen Ur Oxycodone Screen Urine Methadone Screen Ur Barbiturates Screen U Tricyclic Antidepress Ur Phencyclidine Scrn Ur Amphetamines Screen U Methamphetamines Scrn Ur MDMA Scrn (Ecstasy) U Benzodiazepines Scrn Urine Cocaine Screen U Marijuana (THC) Screen Ethyl Alcohol Blood Type AB Positive Antibody Screen Negative 05/09/18 05/09/18 18:31 18:31 WBC RBC Hgb Hct MCV MCH MCHC RDW Plt Count Neut % (Auto) Lymph % (Auto) [place] % (Auto) Eos % (Auto) Baso % (Auto) Lymph # (Auto) [place] # (Auto) Baso # (Auto) Total Counted Seg Neutrophils % Band Neutrophils % Lymphocytes % (Manual) Monocytes % (Manual) Metamyelocytes % Neutrophils # (Manual) RBC Morphology Macrocytosis PT INR APTT Sodium Potassium Chloride Carbon Dioxide BUN Creatinine Estimated GFR BUN/Creatinine Ratio Glucose Lactate Calcium Total Bilirubin AST ALT Alkaline Phosphatase Total Creatine Kinase CK-MB (CK-2) CK-MB (CK-2) Rel Index Troponin I Total Protein Albumin Globulin Albumin/Globulin Ratio Lipase Procalcitonin Urine Color Yellow Urine Appearance Clear Urine pH 5.0 Ur Specific [place] 1.015 Urine Protein Trace H Urine Glucose (UA) Negative Urine Ketones Negative Urine Occult Blood 2+ H Urine Nitrate Negative Urine Bilirubin Negative Urine Urobilinogen 0.2 Ur Leukocyte Esterase Negative Urine RBC 1-5/hpf Urine WBC 5-10/hpf H Ur Squamous Epith Cells 0-1 /hpf Ur Transition Epith Cell 0-1/hpf Amorphous Sediment 1+ Urine Bacteria Few (2-10) H Hyaline Casts 5-10/lpf Granular Casts 1-5/lpf Urine Mucus 2+ H Ur Culture Indicated? Specimen cultured Urine Opiates Screen Negative Ur Oxycodone Screen Negative Urine Methadone Screen Negative Ur Barbiturates Screen Negative U Tricyclic Antidepress Negative Ur Phencyclidine Scrn Negative Ur Amphetamines Screen Negative U Methamphetamines Scrn Negative Ur MDMA Scrn (Ecstasy) Negative U Benzodiazepines Scrn Negative Urine Cocaine Screen Negative U Marijuana (THC) Screen Negative Ethyl Alcohol Blood Type Antibody Screen Assessment & Plan Assessment & Plan narrative: Fall with patient found down greater than 24 hr with severe lactic acidosis and acute renal failure with rib fracture and possible subacute compression fracture of spine. Patient will be admitted to the hospital as an inpatient. Patient meets inpatient criteria due to severity of illness and inability to take care of herself at home and further monitoring and evaluation. Fall with lactic acidosis and acute renal failure. Patient will be admitted the hospital. Well frequent monitoring of vitals including blood pressure oxygen level. Patient will have IV fluid rehydration. She will monitor her CPK to make sure she does not have rhabdomyolysis. We will monitor lactic acid. We added a procalcitonin to make sure that there was no underlying infectious etiology. Will monitor closely her kidney function and make sure her creatinine is not increased. Acute kidney injury creatinine is above baseline at currently at 1.4. Monitor closely electrolytes recheck BUN and creatinine in the morning. To see if hydration and time will improve this. Monitor closely CPK to make sure this is not the source of her acute kidney injury. She is currently making poor urine and probably has a little bit of dehydration. Anemia. Acute. Unsure etiology previously her hematocrit was 14. She has an elevated MCV but this has been there for quite some time. I would like to do iron studies vitamin B12 folic acid and iron panel. It looks like in her history she is vitamin B12 deficient so we will recheck this this is probably the cause. will have the nursing staff like stools to make sure she does not have an acute bleed. She has been typed and screened if needed. Rib fracture due to fall. Provide pain control with Tylenol and oxycodone as needed for pain. Compression of the fracture of the spine probably fragility fracture due to osteoporosis underlying. This fracture is pathologic due to her osteoporosis Unable to determine based on the CT scan of chronicity. She does have some back pain this is probably due to the compression fracture so it is more likely acute.. Will provide pain relief. And further monitor and evaluate this. Hyperlipidemia. Patient will be started back on her anti cholesterol medication. Hypertension blood pressure stable this point will continue to monitor. Disposition plan admit as inpatient.
--- NOTE | 2018-05-09 20:03 | P.HP_ITS ---
History of Present Illness Date Patient Seen: 05/09/18 Time Patient Seen: 07:48 Chief complaint: GLF last night, unknown downtime Narrative: Patient seen and examined in the ICU just after transfer. Patient at bedside with 2 daughters. Daughters help in history. Patient states that she f ell in the middle of the night and could not get up. She says her room looked like a war zone and there was blood all over. She sustained a fall and a laceration. She has bruising to her eye and her face into multiple parts of her body. She says throughout the evening she could not get up. And then throughout the day could not get up as well. Finally she was able to get to a telephone and make a call to 911. Patient states she was unable to breathe during the call and was only able to give her address. Patient states that she has never called 911 before. Her pain is in her ribs radiating around her back. She says she fell as she is not sure how. She does not think she lost conscio usness but she does not remember exactly the incidence around the fall. She remembers trying to get in to bed and unable to do so. She is on good historian. She is aware of the date know she is at [facility]. She lives at home with her . He is in a different part of the house in a different room. She was at least down greater than 12 hr. She says probably longer than that. Currently has complaints of mild facial pain. She has complaints of back pain shortness of breath. She has no leg pain hip pain abdominal pain. She has no nausea. She says she is thirsty and hungry. On arrival to the emergency room. Patient had blood on her face nose ear. She was quite cool in temperature. 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) Vascular claudication (Chronic 04/20/16) 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 sohail/druze: None travel history: recent ([place]) leisure activities: sports and other (Gardening) Smoking Status: Former smoker Tobacco: How many years used: 40 Smokeless tobacco user: other (Cigarettes) quit status: quit date established (2016) second hand exposure: No alcohol intake: current substance use type: does not use Family & Social History Social History: household members spouse lives independently Yes caregiver/support person Yes: Daughters Tobacco & Substance use: Smoking Status Former smoker alcohol intake current Meds Home Medications Medication Instructions Recorded Confirmed Type CALCIUM CARBONATE (#CALTRATE 600) 600 mg PO BID #0 11/16/10 05/09/18 History aspirin 81 mg PO QDAY #0 02/13/16 05/09/18 History clopidogrel 75 mg PO DAILY #0 07/20/16 05/09/18 History tramadol 50 mg tablet 50 mg PO QID PRN #30 tab 09/12/17 05/09/18 Rx terbinafine HCl 250 mg PO Q3D 11/29/17 05/09/18 History acetaminophen 650 mg PO Q6HR PRN #60 tab 12/03/17 05/09/18 Rx docusate sodium 100 mg PO BID #60 cap 12/03/17 05/09/18 Rx atorvastatin 40 mg PO DAILY 05/09/18 05/09/18 History Allergies Allergy/AdvReac Type Severity Reaction Status Date / Time No Known Drug Allergies Allergy Verified 05/09/18 18:18 Exam Vital Signs (past 8 hours): - 05/09/18 17:00 05/09/18 17:40 05/09/18 19:15 Temperature 93.3 F L 93.3 F L 98.2 F Pulse Rate 101 H 101 H 108 H Respiratory Rate 22 22 24 Blood Pressure 156/101 H 156/101 H Blood Pressure [Left Arm] 97/82 Pulse Oximetry 78 L 78 L 96 05/09/18 19:35 Temperature 98.5 F Pulse Rate 107 H Respiratory Rate 23 Blood Pressure Blood Pressure [Left Arm] 124/47 L Pulse Oximetry 98 Oxygen Delivery Method Nasal Cannula Oxygen Flow Rate [address]: Radiologist's impression: [address] [address] [address] Scan Report Signed Patient: Taniya Johnson LMR#: [id number] : 9Acct:[id number] Age/Sex: 77 / FDate of Service: 05/09/18 Loc: ED Accession Number: [id number] Procedure: CT head/brain wo con Ordering Provider: Luh Mejia D.O. PROCEDURE: CT HEAD/BRAIN WO CON INDICATIONS: fall, head injury, lac eye, thoracic back pain, blood in ear TECHNIQUE: Noncontrast 4.5 mm thick angled axial sections acquired from the foramen magnum to the vertex, with coronal and sagittal reformats. For radiation dose reduction, the following was used: automated exposure control, adjustment of mA and/or kV according to patient size. COMPARISON: None. FINDINGS: Image quality: Excellent. CSF spaces: Basal cisterns are patent. No extra-axial fluid collections. The ventricles are symmetric in size and shape. Brain: No intracranial bleeds or masses. There is cerebral volume loss for age, with resultant ventricular and sulcal prominence. There are periventricular and moderate deep white matter chronic small vessel ischemic changes. 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 There is intracranial internal carotid artery atherosclerosis. Skull and face: Calvarium and visualized facial bones appear intact, without suspicious lesions. Sinuses: Previous bilateral maxillary sinus surgery. No acute sinus disease. IMPRESSION: 1. Age related volume loss, moderate small vessel ischemic change, old left subinsular lacunar infarct. 2. Negative for acute stroke, hemorrhage, or mass. 3. No displaced skull fractures. [address] [address] [address] Scan Report Signed Patient: Taniya Johnson LMR#: [id number] : 9Acct:[id number] Age/Sex: 77 / FDate of Service: 05/09/18 Loc: ED Accession Number: [id number] Procedure: CT chest abd pel w con Ordering Provider: Luh Mejia D.O. PROCEDURE: CT CHEST ABD PEL W CON INDICATIONS: fall, head injury, lac eye, thoracic back pain, blood in ear TECHNIQUE: After the administration of intravenous contrast, 5 mm thick sections acquired from the lung apices to the symphysis. 2.5 mm thick coronal and sagittal reformats were acquired. Additional 7 mm thick coronal maximum intensity projection (MIP) reformats acquired through the lungs. Optional 10-minute delayed imaging may be performed from the kidneys to the bladder. For radiation dose reduction, the following was used: automated exposure control, adjustment of mA and/or kV according to patient size. COMPARISON: [facility] [place], CR, XR LUMBAR SPINE 2 OR 3 VIEWS, 04/13/2018, 15:19. FINDINGS: Image quality: Excellent. CHEST: Lungs: No pulmonary contusions or lacerations. No acute airspace opacities. No pneumothorax or hemothorax. Moderate biapical centrilobular emphysema. Central and peripheral airways appear patent and normal in caliber. Mediastinum: No mediastinal hematomas. Heart size is normal. No pericardial effusion. Thoracic aorta and pulmonary arteries demonstrate normal size and enhancement. No mediastinal or hilar adenopathy. Esophagus is normal in caliber. No hiatal hernia. Chest wall: Posterior right 12th rib fracture is probably acute. No subcutaneous emphysema. No axillary or supraclavicular adenopathy. Thyroid gland is unremarkable. ABDOMEN: Solid organs: Liver is normal in size and enhancement, without lacerations. Gallbladder is unremarkable. Biliary system is non-dilated. Pancreas enhances normally, without transection. Spleen is normal in size and enhancement, without lacerations. No adrenal hematomas. Both kidneys enhance normally, without hydronephrosis or lacerations. Peritoneum and bowel: No free fluid or air. Unenhanced bowel loops demonstrate normal wall thickness and caliber. Sigmoid diverticulosis without evidence of diverticulitis. Nodes and vessels: No retroperitoneal or mesenteric adenopathy. Aorta and inferior vena cava are normal in size and enhancement. Miscellaneous: No ventral hernias. PELVIS: Genitourinary: Bladder is completely decompressed. Miscellaneous: No inguinal hernias or adenopathy. Bones: Pelvic ring and hip joints appear intact. There is a prominent, large Schmorl's node of T12 superior endplate which is likely a chronic finding. A mild to moderate superior endplate compression fracture of T7 is of uncertain acuity. There is a posterior right 12th rib fracture which is probably acute. IMPRESSION: 1. A posterior right 12th rib fracture is probably acute. 2. A mild to moderate superior endplate compression fracture of T7 is of uncertain acuity. 3. Moderate centrilobular emphysema. 4. [place] [address] CT Scan Report Signed Patient: Taniya Johnson LMR#: [id number] : 9Acct:[id number] Age/Sex: 77 / FDate of Service: 05/09/18 Loc: ED Accession Number: [id number] Procedure: CT cervical spine wo con Ordering Provider: Luh Mejia D.O. PROCEDURE: CT CERVICAL SPINE WO CON INDICATIONS: fall, head injury, lac eye, thoracic back pain, blood in ear TECHNIQUE: Noncontrast 3 mm thick sections acquired from the skull base to the T4 level. Sagittal and coronal reformats were then constructed. For radiation dose reduction, the following was used: automated exposure control, adjustment of mA and/or kV according to patient size. COMPARISON: None. FINDINGS: Image quality: Excellent. Bones: No fractures or dislocations. Visualized superior ribs are intact. Severe cervical spondylitic change present. Findings include severe bilateral foraminal narrowing at C3-C4 and C4-C5. There is multilevel facet hypertrophy. Soft tissues: Prevertebral soft tissues are normal in thickness. No paravertebral hematomas. No apical pneumothoraces. Biapical centrilobular emphysema, moderate to severe. IMPRESSION: 1. No evidence of cervical fracture or dislocation. 2. Moderate to severe cervical spondylitic change. 3. Centrilobular emphysema. Labs Result Diagrams: 05/09/18 17:07 05/09/18 17:53 Labs: Laboratory Results - last 24 hr 05/09/18 05/09/18 05/09/18 17:07 17:53 17:53 WBC 20.3 H RBC 2.72 L Hgb 9.7 L Hct 29.7 L MCV 108.9 H MCH 35.5 H MCHC 32.6 RDW 14.7 Plt Count 242 Neut % (Auto) Not Reportable Lymph % (Auto) Not Reportable [place] % (Auto) Not Reportable Eos % (Auto) Not Reportable Baso % (Auto) Not Reportable Lymph # (Auto) Not Reportable [place] # (Auto) Not Reportable Baso # (Auto) Not Reportable Total Counted 100 Seg Neutrophils % 73.0 H Band Neutrophils % 9.0 H Lymphocytes % (Manual) 9.0 L Monocytes % (Manual) 7.0 Metamyelocytes % 2.0 H Neutrophils # (Manual) 86254 H RBC Morphology See below Macrocytosis 1+ H PT 13.5 H INR 1.2 APTT 24 L D Sodium 138 Potassium 4.7 Chloride 104 Carbon Dioxide 15 L BUN 19 H Creatinine 1.40 H Estimated GFR 36.3 L BUN/Creatinine Ratio 13.6 Glucose 84 Lactate Calcium 8.4 Total Bilirubin 0.6 AST 39 H ALT 37 Alkaline Phosphatase 68 Total Creatine Kinase 129 CK-MB (CK-2) 4.31 H CK-MB (CK-2) Rel Index 3.3 Troponin I < 0.012 Total Protein 5.6 L Albumin 3.2 L Globulin 2.4 Albumin/Globulin Ratio 1.3 Lipase 431 H Procalcitonin Urine Color Urine Appearance Urine pH Ur Specific [place] Urine Protein Urine Glucose (UA) Urine Ketones Urine Occult Blood Urine Nitrate Urine Bilirubin Urine Urobilinogen Ur Leukocyte Esterase Urine RBC Urine WBC Ur Squamous Epith Cells Ur Transition Epith Cell Amorphous Sediment Urine Bacteria Hyaline Casts Granular Casts Urine Mucus Ur Culture Indicated? Urine Opiates Screen Ur Oxycodone Screen Urine Methadone Screen Ur Barbiturates Screen U Tricyclic Antidepress Ur Phencyclidine Scrn Ur Amphetamines Screen U Methamphetamines Scrn Ur MDMA Scrn (Ecstasy) U Benzodiazepines Scrn Urine Cocaine Screen U Marijuana (THC) Screen Ethyl Alcohol < 10 Blood Type Antibody Screen 05/09/18 05/09/18 05/09/18 17:53 17:53 17:58 WBC RBC Hgb Hct MCV MCH MCHC RDW Plt Count Neut % (Auto) Lymph % (Auto) [place] % (Auto) Eos % (Auto) Baso % (Auto) Lymph # (Auto) [place] # (Auto) Baso # (Auto) Total Counted Seg Neutrophils % Band Neutrophils % Lymphocytes % (Manual) Monocytes % (Manual) Metamyelocytes % Neutrophils # (Manual) RBC Morphology Macrocytosis PT INR APTT Sodium Potassium Chloride Carbon Dioxide BUN Creatinine Estimated GFR BUN/Creatinine Ratio Glucose Lactate 9.7 H Calcium Total Bilirubin AST ALT Alkaline Phosphatase Total Creatine Kinase CK-MB (CK-2) CK-MB (CK-2) Rel Index Troponin I Total Protein Albumin Globulin Albumin/Globulin Ratio Lipase Procalcitonin 0.05 Urine Color Urine Appearance Urine pH Ur Specific [place] Urine Protein Urine Glucose (UA) Urine Ketones Urine Occult Blood Urine Nitrate Urine Bilirubin Urine Urobilinogen Ur Leukocyte Esterase Urine RBC Urine WBC Ur Squamous Epith Cells Ur Transition Epith Cell Amorphous Sediment Urine Bacteria Hyaline Casts Granular Casts Urine Mucus Ur Culture Indicated? Urine Opiates Screen Ur Oxycodone Screen Urine Methadone Screen Ur Barbiturates Screen U Tricyclic Antidepress Ur Phencyclidine Scrn Ur Amphetamines Screen U Methamphetamines Scrn Ur MDMA Scrn (Ecstasy) U Benzodiazepines Scrn Urine Cocaine Screen U Marijuana (THC) Screen Ethyl Alcohol Blood Type AB Positive Antibody Screen Negative 05/09/18 05/09/18 18:31 18:31 WBC RBC Hgb Hct MCV MCH MCHC RDW Plt Count Neut % (Auto) Lymph % (Auto) [place] % (Auto) Eos % (Auto) Baso % (Auto) Lymph # (Auto) [place] # (Auto) Baso # (Auto) Total Counted Seg Neutrophils % Band Neutrophils % Lymphocytes % (Manual) Monocytes % (Manual) Metamyelocytes % Neutrophils # (Manual) RBC Morphology Macrocytosis PT INR APTT Sodium Potassium Chloride Carbon Dioxide BUN Creatinine Estimated GFR BUN/Creatinine Ratio Glucose Lactate Calcium Total Bilirubin AST ALT Alkaline Phosphatase Total Creatine Kinase CK-MB (CK-2) CK-MB (CK-2) Rel Index Troponin I Total Protein Albumin Globulin Albumin/Globulin Ratio Lipase Procalcitonin Urine Color Yellow Urine Appearance Clear Urine pH 5.0 Ur Specific [place] 1.015 Urine Protein Trace H Urine Glucose (UA) Negative Urine Ketones Negative Urine Occult Blood 2+ H Urine Nitrate Negative Urine Bilirubin Negative Urine Urobilinogen 0.2 Ur Leukocyte Esterase Negative Urine RBC 1-5/hpf Urine WBC 5-10/hpf H Ur Squamous Epith Cells 0-1 /hpf Ur Transition Epith Cell 0-1/hpf Amorphous Sediment 1+ Urine Bacteria Few (2-10) H Hyaline Casts 5-10/lpf Granular Casts 1-5/lpf Urine Mucus 2+ H Ur Culture Indicated? Specimen cultured Urine Opiates Screen Negative Ur Oxycodone Screen Negative Urine Methadone Screen Negative Ur Barbiturates Screen Negative U Tricyclic Antidepress Negative Ur Phencyclidine Scrn Negative Ur Amphetamines Screen Negative U Methamphetamines Scrn Negative Ur MDMA Scrn (Ecstasy) Negative U Benzodiazepines Scrn Negative Urine Cocaine Screen Negative U Marijuana (THC) Screen Negative Ethyl Alcohol Blood Type Antibody Screen Assessment & Plan Assessment & Plan narrative: Fall with patient found down greater than 24 hr wi th severe lactic acidosis and acute renal failure with rib fracture and possible subacute compression fracture of spine. Patient will be admitted to the hospital as an inpatient. Patient meets inpatient criteria due to severity of illness and inability to take care of herself at home and further monitoring and evaluation. Fall with lactic acidosis and acute renal failure. Patient will be admitted the hospital. Well frequent monitoring of vitals including blood pressure oxygen level. Patient will have IV fluid rehydration. She will monitor her CPK to make sure she does not have rhabdomyolysis. We will monitor lactic acid. We added a procalcitonin to make sure that there was no underlying infectious etiology. Will monitor closely her kidney function and make sure her creatinine is not increased. Acute kidney injury creatinine is above baseline at currently at 1.4. Monitor closely electrolytes recheck BUN and creatinine in the morning. To see if hydration and time will improve this. Monitor closely CPK to make sure this is not the source of her acute kidney injury. She is currently making poor urine and probably has a little bit of dehydration. Anemia. Acute. Unsure etiology previously her hematocrit was 14. She has an elevated MCV but this has been there for quite some time. I would like to do iron studies vitamin B12 folic acid and iron panel. It looks like in her history she is vitamin B12 deficient so we will recheck this this is probably the cause. will have the nursing staff like stools to make sure she does not have an acute bleed. She has been typed and screened if needed. Rib fracture due to fall. Provide pain control with Tylenol and oxycodone as needed for pain. Compression of the fracture of the spine probably fragility fracture due to osteoporosis underlying. This fracture is pathologic due to her osteoporosis Unable to determine based on the CT scan of chronicity. She does have some back pain this is probably due to the compression fracture so it is more likely acute.. Will provide pain relief. And further monitor and evaluate this. Hyperlipidemia. Patient will be started back on her anti cholesterol medication. Hypertension blood pressure stable this point will continue to monitor. Disposition plan admit as inpatient.
[2018-05-09] MEDS: OXYCODONE IR 5 MG TABLET PO (20:50)
[2018-05-09] MEDS: DOCUSATE 100 MG CAPSULE PO (20:51)
[2018-05-09] MEDS: SODIUM CHLORIDE 0.45% 1,000 ML 100 ML IV (20:52)
--- NOTE | 2018-05-09 20:55 | PC.NURSE ---
See trauma flowsheet
--- NOTE | 2018-05-09 21:14 | PC.NURSE ---
2000 - Patient admitted to room 102. Brought over on stretcher by nursing staff. Transferred to bed with slider sheet. Alert and oriented with pleasant affect. Oriented to room and call light, call light within reach.
[2018-05-09 21:58] LABS: Reflexed Lactate in 2 Hours Y
[2018-05-09 22:36] LABS: Lactate 2HR (Lactic Acid Rflx) 1.9 mmol/L (0.7-2.1)
[2018-05-09] MEDS: ONDANSETRON 4 MG/2 ML INJ IV (23:45)
[2018-05-09] MEDS: hydrOXYzine pamoate 25 MG CAPSULE PO (23:45)
[2018-05-10] VITALS (14 sets, daily range): BP systolic 95–167; BP diastolic 54–78; PULSE 84–100; RESP 18–25; TEMP 36.5–37.8; O2SAT 93–100
[2018-05-10] MEDS: MORPHINE 2 MG/ML INJ IV (00:13)
[2018-05-10] MEDS: OXYCODONE IR 5 MG TABLET PO ×2 (02:41→08:46)
[2018-05-10] MEDS: SODIUM CHLORIDE 0.45% 1,000 ML 100 ML IV (06:48)
[2018-05-10] MEDS: hydrOXYzine pamoate 25 MG CAPSULE PO ×3 (06:48→17:32)
--- NOTE | 2018-05-10 08:16 | PC.NURSE ---
Addendum entered by Altagracia Tolbert R.N. 05/10/18 15:18: Update provided to family members at bedside. Original Note: Addendum entered by Altagracia Tolbert R.N. 05/10/18 15:03: Pt is still needing O2 at rest. Spo2 85-93% on 1L. Desating with activity Rt consult placed. Original Note: Addendum entered by Altagracia Tolbert R.N. 05/10/18 13:45: Pt able to participate in PT and OT this afternoon, pain with mobility. PO percolone given and routine vistaril for pain. Original Note: Addendum entered by Altagracia Tolbert R.N. 05/10/18 09:26: Saline irrigation completed to ears, wax and dried blood noted. L ear more debris than R. Tolerated well. Pt reports improved hearing. Original Note: Am Shift Pt is a/o x3, SQUAXIN, reporting blood to ear and would like to get that cleaned out after breakfast this morning. Visable dried blood to L ear. ABD pain reported, possible gas pain? Face with minimal discomfort, per Pt. Black eye to L side. Multiple abrasions and bruises over body. Dr Ruano into see Pt, daughter Rayna called for update at this time. Message given to Dr Ruano for update on POC. BA active.
--- NOTE | 2018-05-10 08:18 | PM.PN.1 ---
Subjective Date Patient Seen: 05/10/18 Time Patient Seen: 08:18 Interval history: Patient's history reviewed by the chart and with patient. She actually got up to go to the bathroom blacked out fell hit her head but managed to get back to bed and woke up later in the morning with blood everywhere. She was able to get out of bed and eventually was discovered by her spouse. She was transported to [facility] ED as noted previously. This morning patient is awake alert able to relate that story to me. Complaining of pain in her back. She is also having some periumbilical abdominal discomfort. Her biggest complaint however is that she can hear and is thinking her ears are plugged up which they have been multiple times in the past. Exam Vital Signs (past 8 hours): - 05/10/18 00:44 05/10/18 04:00 05/10/18 06:39 Temperature 98.0 F 97.7 F Pulse Rate 84 91 H Respiratory Rate 22 23 Blood Pressure 167/64 H 135/78 Pulse Oximetry 99 100 97 05/10/18 07:00 Temperature Pulse Rate Respiratory Rate Blood Pressure Pulse Oximetry 97 Oxygen Delivery Method Room Air Oxygen Flow Rate 2 Narrative Exam Narrative: Elderly female with obvious ecchymoses around the left eye and laceration lateral to the eye lying in ICU bed in no obvious discomfort HEENT-unremarkable, normocephalic atraumatic Neck-no lymphadenopathy no bruits Lungs-clear anteriorly and posteriorly no wheezes no crackles good breath sounds Heart-regular rate and rhythm, no murmur, rub, or gallop. normal S1-S2 Abdomen-positive bowel tones, soft, nontender, nondistended, no hepatosplenomegaly, no masses palpable Neuro-normal to screening exam, gait not tested Extremities-no cyanosis clubbing or edema Objective Labs Result Diagrams: 05/09/18 17:07 05/09/18 17:53 Labs: Laboratory Results - last 24 hr 05/09/18 05/09/18 05/09/18 17:07 17:53 17:53 WBC 20.3 H RBC 2.72 L Hgb 9.7 L Hct 29.7 L MCV 108.9 H MCH 35.5 H MCHC 32.6 RDW 14.7 Plt Count 242 Neut % (Auto) Not Reportable Lymph % (Auto) Not Reportable [place] % (Auto) Not Reportable Eos % (Auto) Not Reportable Baso % (Auto) Not Reportable Lymph # (Auto) Not Reportable [place] # (Auto) Not Reportable Baso # (Auto) Not Reportable Total Counted 100 Seg Neutrophils % 73.0 H Band Neutrophils % 9.0 H Lymphocytes % (Manual) 9.0 L Monocytes % (Manual) 7.0 Metamyelocytes % 2.0 H Neutrophils # (Manual) 46956 H RBC Morphology See below Macrocytosis 1+ H PT 13.5 H INR 1.2 APTT 24 L D Sodium 138 Potassium 4.7 Chloride 104 Carbon Dioxide 15 L BUN 19 H Creatinine 1.40 H Estimated GFR 36.3 L BUN/Creatinine Ratio 13.6 Glucose 84 Lactate Calcium 8.4 Total Bilirubin 0.6 AST 39 H ALT 37 Alkaline Phosphatase 68 Total Creatine Kinase 129 CK-MB (CK-2) 4.31 H CK-MB (CK-2) Rel Index 3.3 Troponin I < 0.012 Total Protein 5.6 L Albumin 3.2 L Globulin 2.4 Albumin/Globulin Ratio 1.3 Lipase 431 H Procalcitonin Urine Color Urine Appearance Urine pH Ur Specific [place] Urine Protein Urine Glucose (UA) Urine Ketones Urine Occult Blood Urine Nitrate Urine Bilirubin Urine Urobilinogen Ur Leukocyte Esterase Urine RBC Urine WBC Ur Squamous Epith Cells Ur Transition Epith Cell Amorphous Sediment Urine Bacteria Hyaline Casts Granular Casts Urine Mucus Ur Culture Indicated? Nasal Screen MRSA (PCR) Urine Opiates Screen Ur Oxycodone Screen Urine Methadone Screen Ur Barbiturates Screen U Tricyclic Antidepress Ur Phencyclidine Scrn Ur Amphetamines Screen U Methamphetamines Scrn Ur MDMA Scrn (Ecstasy) U Benzodiazepines Scrn Urine Cocaine Screen U Marijuana (THC) Screen Ethyl Alcohol < 10 Blood Type Antibody Screen 05/09/18 05/09/18 05/09/18 17:53 17:53 17:58 WBC RBC Hgb Hct MCV MCH MCHC RDW Plt Count Neut % (Auto) Lymph % (Auto) [place] % (Auto) Eos % (Auto) Baso % (Auto) Lymph # (Auto) [place] # (Auto) Baso # (Auto) Total Counted Seg Neutrophils % Band Neutrophils % Lymphocytes % (Manual) Monocytes % (Manual) Metamyelocytes % Neutrophils # (Manual) RBC Morphology Macrocytosis PT INR APTT Sodium Potassium Chloride Carbon Dioxide BUN Creatinine Estimated GFR BUN/Creatinine Ratio Glucose Lactate 9.7 H Calcium Total Bilirubin AST ALT Alkaline Phosphatase Total Creatine Kinase CK-MB (CK-2) CK-MB (CK-2) Rel Index Troponin I Total Protein Albumin Globulin Albumin/Globulin Ratio Lipase Procalcitonin 0.05 Urine Color Urine Appearance Urine pH Ur Specific [place] Urine Protein Urine Glucose (UA) Urine Ketones Urine Occult Blood Urine Nitrate Urine Bilirubin Urine Urobilinogen Ur Leukocyte Esterase Urine RBC Urine WBC Ur Squamous Epith Cells Ur Transition Epith Cell Amorphous Sediment Urine Bacteria Hyaline Casts Granular Casts Urine Mucus Ur Culture Indicated? Nasal Screen MRSA (PCR) Urine Opiates Screen Ur Oxycodone Screen Urine Methadone Screen Ur Barbiturates Screen U Tricyclic Antidepress Ur Phencyclidine Scrn Ur Amphetamines Screen U Methamphetamines Scrn Ur MDMA Scrn (Ecstasy) U Benzodiazepines Scrn Urine Cocaine Screen U Marijuana (THC) Screen Ethyl Alcohol Blood Type AB Positive Antibody Screen Negative 05/09/18 05/09/18 05/09/18 18:31 18:31 21:00 WBC RBC Hgb Hct MCV MCH MCHC RDW Plt Count Neut % (Auto) Lymph % (Auto) [place] % (Auto) Eos % (Auto) Baso % (Auto) Lymph # (Auto) [place] # (Auto) Baso # (Auto) Total Counted Seg Neutrophils % Band Neutrophils % Lymphocytes % (Manual) Monocytes % (Manual) Metamyelocytes % Neutrophils # (Manual) RBC Morphology Macrocytosis PT INR APTT Sodium Potassium Chloride Carbon Dioxide BUN Creatinine Estimated GFR BUN/Creatinine Ratio Glucose Lactate Calcium Total Bilirubin AST ALT Alkaline Phosphatase Total Creatine Kinase CK-MB (CK-2) CK-MB (CK-2) Rel Index Troponin I Total Protein Albumin Globulin Albumin/Globulin Ratio Lipase Procalcitonin Urine Color Yellow Urine Appearance Clear Urine pH 5.0 Ur Specific [place] 1.015 Urine Protein Trace H Urine Glucose (UA) Negative Urine Ketones Negative Urine Occult Blood 2+ H Urine Nitrate Negative Urine Bilirubin Negative Urine Urobilinogen 0.2 Ur Leukocyte Esterase Negative Urine RBC 1-5/hpf Urine WBC 5-10/hpf H Ur Squamous Epith Cells 0-1 /hpf Ur Transition Epith Cell 0-1/hpf Amorphous Sediment 1+ Urine Bacteria Few (2-10) H Hyaline Casts 5-10/lpf Granular Casts 1-5/lpf Urine Mucus 2+ H Ur Culture Indicated? Specimen cultured Nasal Screen MRSA (PCR) Negative for mrsa Urine Opiates Screen Negative Ur Oxycodone Screen Negative Urine Methadone Screen Negative Ur Barbiturates Screen Negative U Tricyclic Antidepress Negative Ur Phencyclidine Scrn Negative Ur Amphetamines Screen Negative U Methamphetamines Scrn Negative Ur MDMA Scrn (Ecstasy) Negative U Benzodiazepines Scrn Negative Urine Cocaine Screen Negative U Marijuana (THC) Screen Negative Ethyl Alcohol Blood Type Antibody Screen 05/09/18 22:13 WBC RBC Hgb Hct MCV MCH MCHC RDW Plt Count Neut % (Auto) Lymph % (Auto) [place] % (Auto) Eos % (Auto) Baso % (Auto) Lymph # (Auto) [place] # (Auto) Baso # (Auto) Total Counted Seg Neutrophils % Band Neutrophils % Lymphocytes % (Manual) Monocytes % (Manual) Metamyelocytes % Neutrophils # (Manual) RBC Morphology Macrocytosis PT INR APTT Sodium Potassium Chloride Carbon Dioxide BUN Creatinine Estimated GFR BUN/Creatinine Ratio Glucose Lactate 1.9 Calcium Total Bilirubin AST ALT Alkaline Phosphatase Total Creatine Kinase CK-MB (CK-2) CK-MB (CK-2) Rel Index Troponin I Total Protein Albumin Globulin Albumin/Globulin Ratio Lipase Procalcitonin Urine Color Urine Appearance Urine pH Ur Specific [place] Urine Protein Urine Glucose (UA) Urine Ketones Urine Occult Blood Urine Nitrate Urine Bilirubin Urine Urobilinogen Ur Leukocyte Esterase Urine RBC Urine WBC Ur Squamous Epith Cells Ur Transition Epith Cell Amorphous Sediment Urine Bacteria Hyaline Casts Granular Casts Urine Mucus Ur Culture Indicated? Nasal Screen MRSA (PCR) Urine Opiates Screen Ur Oxycodone Screen Urine Methadone Screen Ur Barbiturates Screen U Tricyclic Antidepress Ur Phencyclidine Scrn Ur Amphetamines Screen U Methamphetamines Scrn Ur MDMA Scrn (Ecstasy) U Benzodiazepines Scrn Urine Cocaine Screen U Marijuana (THC) Screen Ethyl Alcohol Blood Type Antibody Screen Assessment & Plan Assessment & Plan narrative: 1. Acute kidney injury-still waiting on repeat labs this morning but I am sure will be better. May need to adjust IV fluids based on results. Lactic acidosis has resolved. 2. Ground level fall with rib and vertebral compression fractures as well as closed head injury. Will have her seen by physical therapy and occupational therapy which will be necessary prior to making decision about discharge when she is ultimately ready for discharge 3. Rib and vertebral fractures-continue supportive care. Continue pain management. Given the compression fracture need to be careful with bowel regimens as these patients often become quite constipated which is an issue for this patient anyway. I will start calcitonin nasal spray to see if that will help her with pain control in the immediate subacute time frame here. 4. Anemia-patient has been anemic since her surgery. I have not seen the patient since she had surgery at the end of 2018. 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 Iron studies and other vitamin studies still pending. Does not require transfusion but will continue to monitor. No evidence of large volume bleed her numbers actually stable over several months suggesting an innocent cause such as lack of proper iron absorption etc. 5. Leukocytosis with elevated lactic acid level-unclear whether she actually has an infectious etiology for this or is this more hemoconcentration versus??. Lactic acid quickly returned to normal. Patient has been afebrile. Urine looks to be possibly infected although culture still pending. Patient really quite asymptomatic from a respiratory and other usual suspects infectious disease standpoint. This point she is not on antibiotic therapy nor do I anticipate starting unless there is further evidence of infectious etiology. Still awaiting repeat WBC etc. 6. Other medical problems including hypertension hyperlipidemia vascular disease etc. To be stable. Continue patient's chronic medications 7. Disposition-unclear whether patient will be able to return to previous living environment upon discharge from the hospital. She will have to heal and recover some before we can even assess her appropriately I think for that but will get Physical therapy and Occupational therapy involved as above as well as discharge planning staff.
--- NOTE | 2018-05-10 08:23 | P.PN_ITS ---
Subjective Date Patient Seen: 05/10/18 Time Patient Seen: 08:18 Interval history: Patient's history reviewed by the chart and with patient. She actually got up to go to the bathroom blacked out fell hit her head but managed to get back to bed and woke up later in the morning with blood everywhere. She was able to get out of bed and eventually was discovered by her spouse. She was transported to [facility] ED as noted previously. This morning patient is awake alert able to relate that story to me. Complaining of pain in her back. She is also having some periumbilical abdomin al discomfort. Her biggest complaint however is that she can hear and is thinking her ears are plugged up which they have been multiple times in the past. Exam Vital Signs (past 8 hours): - 05/10/18 00:44 05/10/18 04:00 05/10/18 06:39 Temperature 98.0 F 97.7 F Pulse Rate 84 91 H Respiratory Rate 22 23 Blood Pressure 167/64 H 135/78 Pulse Oximetry 99 100 97 05/10/18 07:00 Temperature Pulse Rate Respiratory Rate Blood Pressure Pulse Oximetry 97 Oxygen Delivery Method Room Air Oxygen Flow Rate 2 Narrative Exam Narrative: Elderly female with obvious ecchymoses around the left eye and laceration lateral to the eye lying in ICU bed in no obvious discomfort HEENT-unremarkable, normocephalic atraumatic Neck-no lymphadenopathy no bruits Lungs-clear anteriorly and posteriorly no wheezes no crackles good breath sounds Heart-regular rate and rhythm, no murmur, rub, or gallop. normal S1-S2 Abdomen-positive bowel tones, soft, nontender, nondistended, no hepatosplen omegaly, no masses palpable Neuro-normal to screening exam, gait not tested Extremities-no cyanosis clubbing or edema Objective Labs Result Diagrams: 05/09/18 17:07 05/09/18 17:53 Labs: Laboratory Results - last 24 hr 05/09/18 05/09/18 05/09/18 17:07 17:53 17:53 WBC 20.3 H RBC 2.72 L Hgb 9.7 L Hct 29.7 L MCV 108.9 H MCH 35.5 H MCHC 32.6 RDW 14.7 Plt Count 242 Neut % (Auto) Not Reportable Lymph % (Auto) Not Reportable [place] % (Auto) Not Reportable Eos % (Auto) Not Reportable Baso % (Auto) Not Reportable Lymph # (Auto) Not Reportable [place] # (Auto) Not Reportable Baso # (Auto) Not Reportable Total Counted 100 Seg Neutrophils % 73.0 H Band Neutrophils % 9.0 H Lymphocytes % (Manual) 9.0 L Monocytes % (Manual) 7.0 Metamyelocytes % 2.0 H Neutrophils # (Manual) 40905 H RBC Morphology See below Macrocytosis 1+ H PT 13.5 H INR 1.2 APTT 24 L D Sodium 138 Potassium 4.7 Chloride 104 Carbon Dioxide 15 L BUN 19 H Creatinine 1.40 H Estimated GFR 36.3 L BUN/Creatinine Ratio 13.6 Glucose 84 Lactate Calcium 8.4 Total Bilirubin 0.6 AST 39 H ALT 37 Alkaline Phosphatase 68 Total Creatine Kinase 129 CK-MB (CK-2) 4.31 H CK-MB (CK-2) Rel Index 3.3 Troponin I < 0.012 Total Protein 5.6 L Albumin 3.2 L Globulin 2.4 Albumin/Globulin Ratio 1.3 Lipase 431 H Procalcitonin Urine Color Urine Appearance Urine pH Ur Specific [place] Urine Protein Urine Glucose (UA) Urine Ketones Urine Occult Blood Urine Nitrate Urine Bilirubin Urine Urobilinogen Ur Leukocyte Esterase Urine RBC Urine WBC Ur Squamous Epith Cells Ur Transition Epith Cell Amorphous Sediment Urine Bacteria Hyaline Casts Granular Casts Urine Mucus Ur Culture Indicated? Nasal Screen MRSA (PCR) Urine Opiates Screen Ur Oxycodone Screen Urine Methadone Screen Ur Barbiturates Screen U Tricyclic Antidepress Ur Phencyclidine Scrn Ur Amphetamines Screen U Methamphetamines Scrn Ur MDMA Scrn (Ecstasy) U Benzodiazepines Scrn Urine Cocaine Screen U Marijuana (THC) Screen Ethyl Alcohol < 10 Blood Type Antibody Screen 05/09/18 05/09/18 05/09/18 17:53 17:53 17:58 WBC RBC Hgb Hct MCV MCH MCHC RDW Plt Count Neut % (Auto) Lymph % (Auto) [place] % (Auto) Eos % (Auto) Baso % (Auto) Lymph # (Auto) [place] # (Auto) Baso # (Auto) Total Counted Seg Neutrophils % Band Neutrophils % Lymphocytes % (Manual) Monocytes % (Manual) Metamyelocytes % Neutrophils # (Manual) RBC Morphology Macrocytosis PT INR APTT Sodium Potassium Chloride Carbon Dioxide BUN Creatinine Estimated GFR BUN/Creatinine Ratio Glucose Lactate 9.7 H Calcium Total Bilirubin AST ALT Alkaline Phosphatase Total Creatine Kinase CK-MB (CK-2) CK-MB (CK-2) Rel Index Troponin I Total Protein Albumin Globulin Albumin/Globulin Ratio Lipase Procalcitonin 0.05 Urine Color Urine Appearance Urine pH Ur Specific [place] Urine Protein Urine Glucose (UA) Urine Ketones Urine Occult Blood Urine Nitrate Urine Bilirubin Urine Urobilinogen Ur Leukocyte Esterase Urine RBC Urine WBC Ur Squamous Epith Cells Ur Transition Epith Cell Amorphous Sediment Urine Bacteria Hyaline Casts Granular Casts Urine Mucus Ur Culture Indicated? Nasal Screen MRSA (PCR) Urine Opiates Screen Ur Oxycodone Screen Urine Methadone Screen Ur Barbiturates Screen U Tricyclic Antidepress Ur Phencyclidine Scrn Ur Amphetamines Screen U Methamphetamines Scrn Ur MDMA Scrn (Ecstasy) U Benzodiazepines Scrn Urine Cocaine Screen U Marijuana (THC) Screen Ethyl Alcohol Blood Type AB Positive Antibody Screen Negative 05/09/18 05/09/18 05/09/18 18:31 18:31 21:00 WBC RBC Hgb Hct MCV MCH MCHC RDW Plt Count Neut % (Auto) Lymph % (Auto) [place] % (Auto) Eos % (Auto) Baso % (Auto) Lymph # (Auto) [place] # (Auto) Baso # (Auto) Total Counted Seg Neutrophils % Band Neutrophils % Lymphocytes % (Manual) Monocytes % (Manual) Metamyelocytes % Neutrophils # (Manual) RBC Morphology Macrocytosis PT INR APTT Sodium Potassium Chloride Carbon Dioxide BUN Creatinine Estimated GFR BUN/Creatinine Ratio Glucose Lactate Calcium Total Bilirubin AST ALT Alkaline Phosphatase Total Creatine Kinase CK-MB (CK-2) CK-MB (CK-2) Rel Index Troponin I Total Protein Albumin Globulin Albumin/Globulin Ratio Lipase Procalcitonin Urine Color Yellow Urine Appearance Clear Urine pH 5.0 Ur Specific [place] 1.015 Urine Protein Trace H Urine Glucose (UA) Negative Urine Ketones Negative Urine Occult Blood 2+ H Urine Nitrate Negative Urine Bilirubin Negative Urine Urobilinogen 0.2 Ur Leukocyte Esterase Negative Urine RBC 1-5/hpf Urine WBC 5-10/hpf H Ur Squamous Epith Cells 0-1 /hpf Ur Transition Epith Cell 0-1/hpf Amorphous Sediment 1+ Urine Bacteria Few (2-10) H Hyaline Casts 5-10/lpf Granular Casts 1-5/lpf Urine Mucus 2+ H Ur Culture Indicated? Specimen cultured Nasal Screen MRSA (PCR) Negative for mrsa Urine Opiates Screen Negative Ur Oxycodone Screen Negative Urine Methadone Screen Negative Ur Barbiturates Screen Negative U Tricyclic Antidepress Negative Ur Phencyclidine Scrn Negative Ur Amphetamines Screen Negative U Methamphetamines Scrn Negative Ur MDMA Scrn (Ecstasy) Negative U Benzodiazepines Scrn Negative Urine Cocaine Screen Negative U Marijuana (THC) Screen Negative Ethyl Alcohol Blood Type Antibody Screen 05/09/18 22:13 WBC RBC Hgb Hct MCV MCH MCHC RDW Plt Count Neut % (Auto) Lymph % (Auto) [place] % (Auto) Eos % (Auto) Baso % (Auto) Lymph # (Auto) [place] # (Auto) Baso # (Auto) Total Counted Seg Neutrophils % Band Neutrophils % Lymphocytes % (Manual) Monocytes % (Manual) Metamyelocytes % Neutrophils # (Manual) RBC Morphology Macrocytosis PT INR APTT Sodium Potassium Chloride Carbon Dioxide BUN Creatinine Estimated GFR BUN/Creatinine Ratio Glucose Lactate 1.9 Calcium Total Bilirubin AST ALT Alkaline Phosphatase Total Creatine Kinase CK-MB (CK-2) CK-MB (CK-2) Rel Index Troponin I Total Protein Albumin Globulin Albumin/Globulin Ratio Lipase Procalcitonin Urine Color Urine Appearance Urine pH Ur Specific [place] Urine Protein Urine Glucose (UA) Urine Ketones Urine Occult Blood Urine Nitrate Urine Bilirubin Urine Urobilinogen Ur Leukocyte Esterase Urine RBC Urine WBC Ur Squamous Epith Cells Ur Transition Epith Cell Amorphous Sediment Urine Bacteria Hyaline Casts Granular Casts Urine Mucus Ur Culture Indicated? Nasal Screen MRSA (PCR) Urine Opiates Screen Ur Oxycodone Screen Urine Methadone Screen Ur Barbiturates Screen U Tricyclic Antidepress Ur Phencyclidine Scrn Ur Amphetamines Screen U Methamphetamines Scrn Ur MDMA Scrn (Ecstasy) U Benzodiazepines Scrn Urine Cocaine Screen U Marijuana (THC) Screen Ethyl Alcohol Blood Type Antibody Screen Assessment & Plan Assessment & Plan narrative: 1. Acute kidney injury-still waiting on repeat labs this morning but I am sure will be better. May need to adjust IV fluids based on results. Lactic acidosis has resolved. 2. Ground level fall with rib and vertebral compression fractures as well as closed head injury. Will have her seen by physical therapy and occupational therapy which will be necessary prior to making decision about discharge when she is ultimately ready for discharge 3. Rib and vertebral fractures-continue supportive care. Continue pain management. Given the compression fracture need to be careful with bowel regimens as these patients often become quite constipated which is an issue for this patient anyway. I will start calcitonin nasal spray to see if that will h elp her with pain control in the immediate subacute time frame here. 4. Anemia-patient has been anemic since her surgery. I have not seen the patient since she had surgery at the end of 2018. 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 Iron studies and other vitamin studies still pending. Does not require transfusion but will continue to monitor. No evidence of large volume bleed her numbers actually stable over several months suggesting an innocent cause such as lack of proper iron absorption etc. 5. Leukocytosis with elevated lactic acid level-unclear whether she actually has an infectious etiology for this or is this more hemoconcentration versus??. Lactic acid quickly returned to normal. Patient has been afebrile. Urine looks to be possibly infected although culture still pending. Patient really quite asymptomatic from a respiratory and other usual suspects infectious disease standpoint. This point she is not on antibiotic therapy nor do I anticipate starting unless there is further evidence of infectious etiology. Still awaiting repeat WBC etc. 6. Other medical problems including hypertension hyperlipidemia vascular disease etc. To be stable. Continue patient's chronic medications 7. Disposition-unclear whether patient will be able to return to previous living environment upon discharge from the hospital. She will have to heal and recover some before we can even assess her appropriately I think for that but will get Physical therapy and Occupational therapy involved as above as well as discharge planning staff.
[2018-05-10] MEDS: ASPIRIN EC 81 MG TABLET PO (08:45)
[2018-05-10] MEDS: CLOPIDOGREL 75 MG TABLET PO (08:45)
[2018-05-10] MEDS: DOCUSATE 100 MG CAPSULE PO ×2 (08:45→20:41)
[2018-05-10] MEDS: CALCITONIN,SALMON, NASAL SPRAY 1 SPRAYS NASAL (08:46)
[2018-05-10] MEDS: ATORVASTATIN 20 MG TABLET 40 MG PO (08:48)
[2018-05-10 09:00] LABS: Add Manual Diff / Slide Review NO; Basophils Absolute Auto 0 /uL (0-100); Basophils Percent Auto 0.1 % (0-2); Eosinophils Absolute Auto 0 /uL (0-450); Hemoglobin 8.1 g/dL (12.0-16.0); Lymphocytes Absolute Auto 1100 /uL (1100-4500); Lymphocytes Percent Auto 10.9 % (25-40); Mean Corpuscular HGB Conc 34.9 % (30-36); Mean Corpuscular Hemoglobin 36.3 PG (26-34); Monocytes Absolute Auto 600 /uL (0-900); Monocytes Percent Auto 5.8 % (3-14); Neutrophils Absolute Auto 8200 /uL (1500-7000); Neutrophils Percent Auto 83.2 % (50-75); Platelet Count 188 X10^3/uL (150-400); Red Blood Cell Count 2.22 X10^6/uL (4.0-5.2); Red Cell Distribution Width 14.5 % (11.6-14.8); White Blood Cell Count 9.9 X10^3/uL (4.5-11.0)
[2018-05-10 09:09] LABS: Creatine Kinase 378 U/L (30-135); Lactate (Lactic Acid) 2.1 mmol/L (0.7-2.1)
[2018-05-10 09:54] LABS: HEMOLYSIS < 15 (0-50); Iron 69 ug/dL (37-170)
[2018-05-10 09:57] LABS: Alanine Aminotransferase 36 IU/L (9-52); Albumin 2.9 g/dL (3.5-5.0); Albumin Globulin Ratio 1.2 (1.0-2.8); Alkaline Phosphatase 69 U/L (38-126); Aspartate Aminotransferase 43 IU/L (14-36); Bilirubin Total 0.5 mg/dL (0.2-1.3); Blood Urea Nitrogen 18 mg/dL (7-17); Calcium 7.6 mg/dL (8.4-10.2); Carbon Dioxide 21 mmol/L (22-32); Chloride 102 mmol/L (98-107); Estimated Glomerular Filt Rate > 60.0 mL/min (>60); Globulin 2.4 g/dL (1.7-4.1); Glucose 106 mg/dL (80-110); HEMOLYSIS < 15 (0-50); Potassium 4.1 mmol/L (3.4-5.1); Sodium 133 mmol/L (137-145); Total Protein 5.3 g/dL (6.3-8.2)
[2018-05-10 10:06] LABS: Percent Iron Saturation 30 % (15-50); Total Iron Binding Capacity 228 ug/dL (265-497); Transferrin 162 mg/dL (206-381)
--- NOTE | 2018-05-10 10:21 | CM.DANOTE ---
Patient is a 77 year old female who was admitted on 05/09/18 for GLF. Pt has [employer] and [employer] for insurance and her PCP is Dr. Ruano. EMR was reviewed. Per MD, pt has compression fx and rib fx from her fall but nonsurgical and not medically stable to d/c today. PT/OT have been ordered and pending. SW met bedside with pt, spouse, and adult granddtr and they confirmed that the pt lives in a 3 story home on [address] with her spouse and they are Independent with ADL's at baseline. Pt had recent spinal surgery and was able to d/c home with spouse and Dtrs and outpt PT. Pt denies any hx of HH or SNF and preference is home if possible. Pt's DPOA is her youngest Dtr Rayna Kraus and pt and spouse have 2 other adult Dtrs and one adult son and all live a little south in the [facility] but visit regularly and can provide some assist if needed. SW discussed Life Alert in case pt or spouse fall again and they have plans to secure a phone in multiple places around the house. SW needs unclear at this time pending PT/OT eval. Plan: SW to follow closely after PT/OT eval towards determining d/c planning needs. KELL Shaikh Discharge Planning/Care Management Advanced directive, confirm from FAMILY Start: 05/09/18 20:38 Freq: Q24H Status: Active Protocol: Document 05/09/18 20:38 CMG (Rec: 05/09/18 20:38 CMG [id number]) Advance Directive, confirm on record Time 20:38 Person contacted family Copy received No CM Discharge Assessment Start: 05/10/18 10:02 Freq: Status: Active Protocol: Document 05/10/18 10:02 BF (Rec: 05/10/18 10:21 BF [id number]) Discharge Planning Assessment Assigned Mixing Roll Operator KELL Oliver DPOA/Assigned Designee Name Dtr Rayna Kraus Advance Directives? Yes Advance Directives on File Yes History Provided By Patient Family Member Significant Other Medical Record Has Patient been admitted in last 30 No days? Prior Living Arrangements House Household Members spouse Type of transporation used prior to Relies on Others admit Comment Lives in a 3 story house on [address] with spouse Independent with ADL's Yes Is patient alert and oriented? Yes Needs Assistance With Home Chores / Shopping Caregiver for Another No DME Already Rented / Owned Bath Bench FWW / Walker Comment Waiting for PT/OT eval and recommendations Barriers to Discharge No Discharge Plan Home Transportation Arrangement Spouse plans to provide transport home at d/c Additional Comment Waiting for PT/OT eval and recommendations Whiteboard Updated in Patient Room with Yes name and ext. # of Mixing Roll Operator Review Status In Process Please Provide Date Initial DC 05/10/18 Assessment Was Performed Next Review Type Continued Stay Review
--- NOTE | 2018-05-10 13:19 | PT.IIE ---
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 Able to make needs known Mobility and Gait Independent without AD at home and community. Able to drive and go to doctors appt. Activities of Daily Living and IADL's Independent with ADLs and IADLs without AD. Social History Household Members spouse Living Arrangements House Number of Floors (Floors) 3 or More Floors Number of Stairs To Enter/Railing? 3 [place] with counter to hold on to Home Environment Standard Height Toilet Tub/Shower Home Equipment Tub Transfer Bench Employment Status Retired Additional Social History Comment pt lives in a 3 story home on [address] with her spouse and they are Independent with ADL's at baseline. Pt had recent spinal surgery in November and was able to d/c home with spouse and Dtrs and outpt PT. Pt was able to recover fully after sx without using an AD afterwards. Pt did not have a fall over the past few years and claimed she is very mobile and safe at all times. M2 PT-IP Current Condition Start: 05/10/18 12:59 Freq: NEEDED Status: Active Protocol: Document 05/10/18 11:00 (Rec: 05/10/18 13:19 [email or web address]) Physical Therapy Current Condition Current Condition Evaluation Date 05/10/18 Treatment Diagnosis GLF, spinal compression fx, rib fx, AKF, impaired gait and activity nanda. Onset Date 05/09/18 Weight Bearing Status Weight Bearing Status Weight Bear as Tolerated M3 PT-IP Subjective Start: 05/10/18 12:59 Freq: NEEDED Status: Active Protocol: Document 05/10/18 11:00 (Rec: 05/10/18 13:19 [email or web address]) Subjective Physical Therapy Visit Type Type Initial Evaluation Visit Start Time 11:00 Visit Stop Time 11:30 Total Visit Minutes 30 Notes Pt's spouse and son at bedside and provided part of social hx. Number of MANAGER FIBER Visits 0 Physical Therapy Visit Comments Patient Comments Pt is agreeable to mobilize with PT. Patient Goals To return home once she is medically stable. Therapy Pain Assessment Pain When Pain Assessed During Mobility Pain Present Pain Present Pain Reported Location Lower Back Intensity 5 Scale Used Numeric (1 - 10) Description Acute Pain Management Techniques Modification of Treatment Re-positioning Timing of Activity with Medications M4 PT-IP Mobility and Gait Start: 05/10/18 12:59 Freq: NEEDED Status: Active Protocol: Document 05/10/18 11:00 (Rec: 05/10/18 13:19 [email or web address]) PT-Bed Mobility Assessment Rolling Type of Rolling Roll to Right Level of Assist Contact Guard Assistance Supine to Sit Supine to Sit Contact Guard Assistance Head of Bed Elevated Bedrails Scooting Scooting to Edge of Bed Contact Guard Assistance PT-Transfer Assessment Sit to and From Stand Sit to and from Stand Contact Guard Assistance Use of Upper Extremities Equipment Transfer Assistive Device Gait Belt Front Wheeled Walker Orthotic/Prosthetic Devices or Brace: No Transfers Transfer Destination Bed Chair Transfer Technique Stand Step Pivot Transfer Ability Level of Assist Contact Guard Assistance Use of Upper Extremities Comments Mobility Comments BP 130s/70s HR 85-92 O2 sat 85 %-92% without O2 NC Pt was in bed upon assessment with 2L O2 NC. Detached NC during session. Pt got up from elevated bed 60 degrees to EOB on R side with CGA, followed by standing up from EOB with FWW. Pt took a few steps and stand pivot to the bedside chair who was able to safely lowering herself with proper hand placements. Gait Assessment Gait Gait Assistance Required: Contact Guard Assist Distance (Feet) 4 Able to Maintain Weight Bearing Status Yes During Gait Assistive Devices Assistive Device Gait Belt Front Wheeled Walker Gait Deviations General Gait Pattern Decreased Stride Length Decreased Feet Clearance Step-to Gait Factors Limiting Gait Function Factors Limiting Gait Function Decreased Activity Tolerance Decreased Strength Limited Range of Motion Pain Respiratory Distress Comments Gait Comments Pt amb from EOB to chair with step to gait and FWW. She was unable to amb further due to c /o fatigue and slight dizziness. Stair Climbing Assessment Comments Stair Climbing Comments did not attempt due to fatigue PT-Balance Assessment Sitting Balance and Reactions Static Sitting Balance Ability Normal Dynamic Sitting Balance Ability Normal Standing Balance and Reactions Static Standing Balance Ability Good Dynamic Standing Balance Ability Good Device Used FWW M5 PT-IP Objective Assessments Start: 05/10/18 12:59 Freq: NEEDED Status: Active Protocol: Document 05/10/18 11:00 (Rec: 05/10/18 13:19 [email or web address]) Orientation Orientation/Cognition Level of Alertness Alert Orientation Name Age Birthday Month Date Year Day of Week Place Situation Language Function Ability No Deficits Noted Safety Awareness Understands Safety Issues Memory Description No Deficits Noted Gross Range of Motion Upper Extremity ROM Assessment Within Functional Limits Lower Extremity ROM Assessment Within Functional Limits Strength Upper Extremity Strength Assessment Within Functional Limits Lower Extremity Strength Assessment Bilaterally Impaired Comments Strength Comments 3+/5 for B LEs. Coordination Assessment Gross Coordination Gross Coordination WNL Sensation Assessment Sensation Gross Sensation WNL Light Touch Intact Proprioception (Position) Intact Muscle Tone Muscle Tone WNL Yes M6 PT-IP Treatment Start: 05/10/18 12:59 Freq: NEEDED Status: Active Protocol: Document 05/10/18 11:00 (Rec: 05/10/18 13:19 [email or web address]) Physical Therapy Treatment Exercises Exercises Quad Sets Education Education Provided Safety M7 PT-IP Assessment and Plan Start: 05/10/18 12:59 Freq: NEEDED Status: Active Protocol: Document 05/10/18 11:00 (Rec: 05/10/18 13:19 [email or web address]) PT Summary Assessment and Plan Potential Rehabilitation Potential Good Status of Condition at Evaluation Stable Summary Impairments Pain ROM Strength Balance Bed Mobility Transfers Gait Activity Tolerance Assessment Summary Pt is a very pleasant and motivated 77 yo female admitted to due to s/P GLF, KAITLYNN, compression fx and rib fx. Upon assessment, pt was able to got out from bed to bedside chair with overall CGA with FWW. However, pt c/o weakness and fatigue after amb 4 feet and requested to sit and rest. Pt's VSS maintain stable during session BP 130s/ 70s HR 80-90s and O2 85% to 94% without NC. Pt O2 sat tends to decrease during mobility but able to recover within 20 secs. Pt's current limitation is respiratory distress and pain from fx sites. And she will not able to nanda BID at this point. Pt will benefit from d/c to short term SNF to improve mobility and pain management. If pt was able to progress significantly over the next few days, recommend d/c to home with assistance and HH therapy. Goals Bed Mobility Goal Independent Transfer Goal Independent Front Wheeled Walker Gait Goal Independent Front Wheel Walker Gait Distance 150 Other Goals climb steps x 3 without railings Days to Meet Goals 5 Frequency of Treatment Frequency Of Treatment Once a Day Treatment Plan Physical Therapy Treatment Plan Bed Mobility Training Transfer Training Gait Training Therapeutic Exercise Discharge Planning Hot or Cold Pack Other Recommendations and Next Treatment Bed mob, transfer and gait Focus training as nanda climb stair 3 steps if possible Recommendations To Nursing Amount of Assist Needed 1 Person Assist Discharge Recommendations PT Discharge Recommendations Home with Assistance Home Health SNF Rehab Other Discharge Recommendations Pt will benefit from d/c to short term SNF to improve mobility and pain management. If pt was able to progress significantly over the next few days, recommend d/c to home with assistance and HH therapy. Equipment Needed for Home Before FWW, raised toilet seat Discharge
--- NOTE | 2018-05-10 14:11 | OT.IP.TRT ---
Current Diagnoses Acute kidney failure, unspecified (05/09/18) Occupational Therapy Treatment Note M3 OT- IP Subjective and Pain Start: 05/10/18 14:07 Freq: Status: Active Protocol: Document 05/10/18 14:08 [facility] (Rec: 05/10/18 14:11 [facility] [id number]) OT- Subjective Occupational Therapy Visit Type Type Patient Refusal Notes Pt states too tired and not wanting to do OT eval at this time. Able to get prior level of function from pt. Therefore to attempt again tomorrow. No charge.
[2018-05-10] MEDS: SODIUM CHLORIDE 0.45% 1,000 ML 75 ML IV (16:30)
--- NOTE | 2018-05-10 18:35 | PC.NURSE ---
Addendum entered by Daly Bhatti R.N. 05/10/18 21:43: 2100 - Pt temp 100.1, HR 100. Denies pain, denies feeling SOB. APAP given, encouraged I.S. use. continues to get low volumes <500. 96% on 2L. Offered to assist to reposition, pt declined, states that she has moved around in bed. Educated to skin integrity. Monitor. Bed alarm on. Call light in reach. Original Note: 1830 - Pt sitting up in bed. Continues to deny pain. Educated to I.S. use. Pt with poor inspiratory effort. Vol. 500cc. O2 2l 96%.
[2018-05-10] MEDS: SENNOSIDES 8.6 MG TABLET PO (20:41)
[2018-05-10] MEDS: ACETAMINOPHEN 325 MG TABLET 650 MG PO (20:41)
[2018-05-11] VITALS (13 sets, daily range): BP systolic 112–145; BP diastolic 47–92; PULSE 84–107; RESP 16–30; TEMP 36.3–37.6; O2SAT 93–98
--- NOTE | 2018-05-11 | DI.ECHO.S_ITS ---
[facility] +---------+ : : [address] : [place] : : : : [id number] : : : : Phone: [phone]+ Echocardiogram Report + + :Name: PEGGY GOLD Study Date: 05/12/2018 Height: 62 in : :[facility] Weight: 114 lb: : Gender: Female BSA: 1.5 m2 : :: 1940 Age: 77 yrs : :Reason For Study: CHF, SYNCOPE : : Performed By: Lena Presley : :Referring: JF ROSSI R : + + Interpretation Summary Normal sinus rhythm. Normal LV size, wall thickness, wall motion and LV systolic function. EF is 60-65%. Stage I diastolic dysfunction. No significant valvular abnormalities. Compared to prior study 11/22/2017 no changes have occurred. Procedure: A two-dimensional transthoracic echocardiogram with color flow and Doppler was performed. The study quality was technically adequate. Comparison is made with the echocardiogram of 11/22/2017. The heart rate ranged between 78-89 bpm during the study. Left Ventricle: The left ventricle is normal in size, wall thickness, and systolic function without any focal wall motion abnormalities. The ejection fraction is estimated to be 60-65%. Right Ventricle: The right ventricle is mildly dilated. Atria: Both atria are normal in size. There is no Doppler evidence for an interatrial shunt. Mitral Valve: The mitral valve leaflets appear mildly thickened, but open well. There is trace mitral regurgitation. Aortic Valve: There is mild aortic valve sclerosis. There is mild aortic regurgitation. Tricuspid Valve: The tricuspid valve is not well visualized, but is grossly normal. The right ventricular systolic pressure is estimated to be at least 40 mmHg based on an estimated right atrial pressure of 3 mm Hg. Pulmonic Valve: The pulmonic valve is not well visualized. Great Vessels: The aortic root is normal size. The ascending aorta is normal in size. The aortic arch could not be visualized. The pulmonary artery branches are not well visualized. The IVC is of normal diameter and collapses greater than 50% with a sniff. This suggests a low right atrial pressure of 3 mm Hg. Pericardium/ Pleura There is no pericardial effusion. There is no pleural effusion. MMode/2D Measurements & Calculations LVIDd: 4.1 cm LVOT diam: 1.9 cm IVSd: 0.78 cm Ao root diam: 3.0 cm LVPWd: 0.71 cm asc Aorta Diam: 3.2 cm LV august. diameter/BSA (cm/m^2): 2.7 LA A2 area: 10.1 cm2 RA long axis: 4.3 cm LA A4 area: 13.5 cm2 RA area: 12.0 cm2 LA length (vol): 5.7 cm RA vol: 28.3 ml LA vol: 20.4 ml RA : 18.8 ml/m2 LA vol index: 13.5 ml/m2 IVC diam: 1.3 cm RVD1 (basal): 3.1 cm Doppler Measurements & Calculations Ao V2 max: 128.4 cm/sec LVOT Max Marquis: 121.3 cm/sec Ao V2 mean: 86.4 cm/sec LV V1 max P.9 mmHg Ao max P.6 mmHg LV V1 VTI: 21.4 cm Ao mean P.3 mmHg VIRGINIA(I,D): 2.5 cm2 Ao V2 VTI: 22.7 cm V[place](V,D): 2.5 cm2 sev ratio: 0.94 [place] indexed to BSA (cm^2/m^2): 1.7 MV E max marquis: 75.2 cm/sec TR max marquis: 304.4 cm/sec MV A max marquis: 100.4 cm/sec TR max P.1 mmHg MV E/A: 0.75 Med Peak E' Marquis: 7.8 cm/sec E/E' med: 9.7 Lat Peak E' Marquis: 9.4 cm/sec E/E' lat: 8.0 E/e' average: 8.8 MV dec time: 0.20 sec SV(LVOT): 57.7 ml Electronically signed by: Elin Olmstead M.D. on Reading Physician:05/12/2018 06:46 PM
[2018-05-11 05:27] LABS: Blood Urea Nitrogen 12 mg/dL (7-17); Calcium 7.9 mg/dL (8.4-10.2); Carbon Dioxide 25 mmol/L (22-32); Chloride 104 mmol/L (98-107); Estimated Glomerular Filt Rate > 60.0 mL/min (>60); Glucose 95 mg/dL (80-110); HEMOLYSIS < 15 (0-50); Lipase 781 U/L (23-300); Potassium 3.6 mmol/L (3.4-5.1); Sodium 134 mmol/L (137-145)
[2018-05-11 05:31] LABS: Hemoglobin 7.2 g/dL (12.0-16.0)
[2018-05-11 05:36] LABS: Hematocrit 20.9 % (36-46)
[2018-05-11] MEDS: SODIUM CHLORIDE 0.45% 1,000 ML 75 ML IV (06:13)
--- NOTE | 2018-05-11 07:49 | DI.CT.S_ITS ---
PROCEDURE: CT ABDOMEN PELVIS W CON INDICATIONS: Abdominal pain. TECHNIQUE: After the administration of intravenous contrast, 5 mm thick sections acquired from the diaphragm to the symphysis. 5 mm coronal and sagittal reformats were acquired. For radiation dose reduction, the following was used: automated exposure control, adjustment of mA and/or kV according to patient size. COMPARISON: [facility], CT, CT CHEST ABD PEL W CON, 05/09/2018, 17:20. FINDINGS: Image quality: Excellent. ABDOMEN: Lung bases: There are trace bilateral effusions and bibasilar atelectasis. Heart size is normal. Solid organs: A 5 mm indeterminate hepatic hypodensity is noted in the left hepatic lobe. Liver is normal in size and enhancement. Gallbladder contains gallstones. Biliary system is non dilated. Pancreas enhances normally. Spleen is normal in size and enhancement. No adrenal nodules. Kidneys demonstrate normal size and enhancement, without hydronephrosis. Small subcentimeter indeterminate low-density nodules are noted in the right kidney. Peritoneum and bowel: Small bowel and proximal colon loops are filled with fluid. There is mild distention of proximal colon and air fluid levels at the hepatic flexure. There is transitional point at the splenic flexure suggesting mild colonic obstruction. There are scattered colonic diverticula in sigmoid colon. There is mild thickening of sigmoid colon suggesting mild diverticulitis. No free air. Small amount of free fluid is present. Nodes and vessels: No retroperitoneal or mesenteric adenopathy by size criteria. Aorta and inferior vena cava are normal in size. Extensive atherosclerosis. Miscellaneous: No ventral hernias. PELVIS: Genitourinary: Bladder is contracted with a Dela Cruz catheter. Miscellaneous: No inguinal hernias or adenopathy. Bones: No suspicious bony lesions. Mild compression fracture of T12, probably chronic. An old right 12th rib fracture is noted. Severe degenerative changes in lumbar spine. There is moderate central canal stenosis at L1-L2, L2-L3, L3-L4. There is discectomy and posterior fusion at L5-S1. IMPRESSION: 1. Small bowel and proximal colon loops are filled with fluid. There is mild distention of proximal colon and an air fluid levels at the hepatic flexure. There is transitional point at the splenic flexure suggesting mild distal colonic obstruction. 2. Sigmoid diverticulosis. There is mild thickening of sigmoid colon suggesting mild diverticulitis. 3. Cholelithiasis. 4. A small amount of free fluid. 5, Mild compression fracture of T11. Dictated by: Key Mckeon M.D. on 05/11/2018 at 8:42 Approved by: Key Mckeon M.D. on 05/11/2018 at 8:59
--- NOTE | 2018-05-11 08:02 | PM.PN.1 ---
Subjective Date Patient Seen: 05/11/18 Time Patient Seen: 08:57 Interval history: Patient appears to have had uneventful day yesterday. When initially I went to see her she was off to Radiology for imaging Worked with physical therapy but was too tired for occupational therapy. Mildly hypoxic on room air Repeat labs have shown normalization of renal function and white blood cell count, but she is anemic and a bit more so this morning. After return from CT patient tells me her abdominal discomfort is still present but better than yesterday. Not affected by eating. No new symptoms or problems. Exam Vital Signs (past 8 hours): - 05/11/18 05:31 05/11/18 07:00 Temperature 98.4 F 98.5 F Pulse Rate 87 88 Respiratory Rate 17 17 Blood Pressure 127/59 L 135/64 Pulse Oximetry 93 98 Oxygen Delivery Method Nasal Cannula Oxygen Flow Rate 2 Narrative Exam Narrative: Elderly female sitting up in a bedside chair eating breakfast without difficulty Lungs-diminished breath sounds but no wheezes or crackles Heart-regular rate and rhythm Abdomen-positive bowel tones nontender nondistended no rebound or guarding Extremities-no edema Objective Imaging CT scan - abdomen: Radiologist's impression: Basically unchanged from previous, perhaps mild distal colonic obstruction which was not reported previously Labs Result Diagrams: 05/11/18 04:58 05/11/18 04:58 Labs: Laboratory Results - last 24 hr 05/09/18 05/10/18 05/10/18 17:53 08:20 08:20 WBC 9.9 D RBC 2.22 L Hgb 8.1 L Hct 23.0 L MCV 104.0 H D MCH 36.3 H MCHC 34.9 RDW 14.5 Plt Count 188 Neut % (Auto) 83.2 H Lymph % (Auto) 10.9 L Bledsoe % (Auto) 5.8 Eos % (Auto) 0.0 L Baso % (Auto) 0.1 Neut # (Auto) 8200 H Lymph # (Auto) 1100 Bledsoe # (Auto) 600 Eos # (Auto) 0 Baso # (Auto) 0 Sodium 133 L Potassium 4.1 Chloride 102 Carbon Dioxide 21 L BUN 18 H Creatinine 0.90 Estimated GFR > 60.0 BUN/Creatinine Ratio 20.0 Glucose 106 Lactate Calcium 7.6 L Iron TIBC % Saturation Transferrin Ferritin Total Bilirubin 0.5 AST 43 H ALT 36 Alkaline Phosphatase 69 Total Creatine Kinase Total Protein 5.3 L Albumin 2.9 L Globulin 2.4 Albumin/Globulin Ratio 1.2 Lipase Blood Type AB Positive Antibody Screen Negative Crossmatch See Detail 05/10/18 05/10/18 05/10/18 08:20 08:20 08:20 WBC RBC Hgb Hct MCV MCH MCHC RDW Plt Count Neut % (Auto) Lymph % (Auto) Bledsoe % (Auto) Eos % (Auto) Baso % (Auto) Neut # (Auto) Lymph # (Auto) Bledsoe # (Auto) Eos # (Auto) Baso # (Auto) Sodium Potassium Chloride Carbon Dioxide BUN Creatinine Estimated GFR BUN/Creatinine Ratio Glucose Lactate 2.1 Calcium Iron 69 TIBC 228 L % Saturation 30 Transferrin 162 L Ferritin 1040.0 H Total Bilirubin AST ALT Alkaline Phosphatase Total Creatine Kinase 378 H D Total Protein Albumin Globulin Albumin/Globulin Ratio Lipase Blood Type Antibody Screen Crossmatch 05/11/18 05/11/18 05/11/18 04:58 04:58 04:58 WBC RBC Hgb 7.2 L Hct 20.9 L* MCV MCH MCHC RDW Plt Count Neut % (Auto) Lymph % (Auto) Bledsoe % (Auto) Eos % (Auto) Baso % (Auto) Neut # (Auto) Lymph # (Auto) Bledsoe # (Auto) Eos # (Auto) Baso # (Auto) Sodium 134 L Potassium 3.6 Chloride 104 Carbon Dioxide 25 BUN 12 Creatinine 0.60 Estimated GFR > 60.0 BUN/Creatinine Ratio 20.0 Glucose 95 Lactate Calcium 7.9 L Iron TIBC % Saturation Transferrin Ferritin Total Bilirubin AST ALT Alkaline Phosphatase Total Creatine Kinase Total Protein Albumin Globulin Albumin/Globulin Ratio Lipase 781 H D Blood Type Antibody Screen Crossmatch Assessment & Plan Assessment & Plan narrative: 1. Acute kidney injury-normalized. IV fluids will be slowed or discontinued 2. Rib fracture and vertebral compression fracture-continue supportive management 3. Anemia-no clear etiology. Will guaiac stools. Transfuse 2 units packed red cells which hopefully will give patient has more energy. She does need to continue on both her anti-platelet agents given her known peripheral arterial disease and status post stent placement. Will obtain abdominal CT scan as well given her abdominal complaints and this anemia. 4. Elevated lipase-unsure whether this represents real pancreatitis or what exactly represents. Patient's location of abdominal pain is periumbilical which does not match all the usual site for pancreatic source of pain. CT scan did not show evidence of pancreatic inflammation. Continue to monitor carefully. Could be related to colonic ischemia which may result in evidence of obstruction as above but no other clinical evidence to suggest that such as bloody diarrhea etc. Patient with only mild pain that is improving. Continue with supportive care and consider outpatient evaluation to include colonoscopy depending on patient's clinical course..... 5. Weakness-continue work with physical therapy and occupational therapy as able presumably improved after transfusion etc.
[2018-05-11] MEDS: DOCUSATE 100 MG CAPSULE PO (08:39)
[2018-05-11] MEDS: CALCITONIN,SALMON, NASAL SPRAY 1 SPRAYS NASAL (08:39)
[2018-05-11] MEDS: CLOPIDOGREL 75 MG TABLET PO (08:39)
[2018-05-11] MEDS: ATORVASTATIN 20 MG TABLET 40 MG PO (08:39)
[2018-05-11] MEDS: ASPIRIN EC 81 MG TABLET PO (08:39)
--- NOTE | 2018-05-11 10:45 | PC.NURSE ---
Pt is comfortable since arriving from CT, able to sit up in chair, remains on 2L with rather poor resp effort on IS. Education on prevention of complications with current illness. Daughter Rayna has called and is anxious for CT results. Updated on POC and transfusion. Message for Dr Ruano re results of scan to daughter. Daughter aware that though scan has been complete, radiologist must review and get to Dr Ruano.
--- NOTE | 2018-05-11 11:07 | PC.NURSE ---
PRBC to fridge while consent and 2nd verification obtained.
--- NOTE | 2018-05-11 11:17 | PT.IPTN ---
Current Diagnoses Acute kidney failure, unspecified (05/09/18) Physical Therapy Treatment Note M2 PT-IP Current Condition Start: 05/10/18 12:59 Freq: NEEDED Status: Active Protocol: Document 05/10/18 11:00 [facility] (Rec: 05/10/18 13:19 [email or web address]) Physical Therapy Current Condition Current Condition Evaluation Date 05/10/18 Treatment Diagnosis GLF, spinal compression fx, rib fx, AKF, impaired gait and activity nanda. Onset Date 05/09/18 Weight Bearing Status Weight Bearing Status Weight Bear as Tolerated M3 PT-IP Subjective Start: 05/10/18 12:59 Freq: NEEDED Status: Active Protocol: Document 05/11/18 11:15 [facility] (Rec: 05/11/18 11:17 GGD [id number]) Subjective Physical Therapy Visit Type Type Administrative Note Notes Hold per RN, pt to receive blood. Will check and pt in PM . Equipment Needed for Home Before FWW, raised toilet seat Discharge
[2018-05-11] MEDS: PANTOPRAZOLE 40 MG VIAL IV (12:55)
[2018-05-11] MEDS: hydrOXYzine pamoate 25 MG CAPSULE PO ×2 (12:58→22:04)
--- NOTE | 2018-05-11 15:27 | PT.IPTN ---
Current Diagnoses Acute kidney failure, unspecified (05/09/18) Physical Therapy Treatment Note M2 PT-IP Current Condition Start: 05/10/18 12:59 Freq: NEEDED Status: Active Protocol: Document 05/10/18 11:00 HH (Rec: 05/10/18 13:19 HH [email or web address]) Physical Therapy Current Condition Current Condition Evaluation Date 05/10/18 Treatment Diagnosis GLF, spinal compression fx, rib fx, AKF, impaired gait and activity nanda. Onset Date 05/09/18 Weight Bearing Status Weight Bearing Status Weight Bear as Tolerated M3 PT-IP Subjective Start: 05/10/18 12:59 Freq: NEEDED Status: Active Protocol: Document 05/11/18 14:15 GGD (Rec: 05/11/18 15:24 GGD [id number]) Subjective Physical Therapy Visit Type Type Treatment Note Visit Start Time 13:50 Visit Stop Time 14:15 Total Visit Minutes 25 Number of ACCOUNTS EXECUTIVE Visits 1 Physical Therapy Visit Comments Patient Comments Pt willing to work with therapy. Therapy Pain Assessment Pain When Pain Assessed During Mobility Pain Present Pain Present Pain Reported M4 PT-IP Mobility and Gait Start: 05/10/18 12:59 Freq: NEEDED Status: Active Protocol: Document 05/11/18 14:15 GGD (Rec: 05/11/18 15:24 GGD [id number]) PT-Bed Mobility Assessment Rolling Type of Rolling Roll to Right Level of Assist Contact Guard Assistance Supine to Sit Supine to Sit Contact Guard Assistance Bedrails Scooting Scooting to Edge of Bed Contact Guard Assistance PT-Transfer Assessment Sit to and From Stand Sit to and from Stand Contact Guard Assistance Use of Upper Extremities Equipment Transfer Assistive Device Gait Belt Front Wheeled Walker Orthotic/Prosthetic Devices or Brace: No Transfers Transfer Destination Chair Transfer Ability Level of Assist Contact Guard Assistance Use of Upper Extremities Comments Mobility Comments O2 sat 85%-92% on RA 96% with 2L O2 Gait Assessment Gait Gait Assistance Required: Contact Guard Assist Distance (Feet) 60 Able to Maintain Weight Bearing Status Yes During Gait Assistive Devices Assistive Device Gait Belt Front Wheeled Walker Orthotic/Prosthetic Devices or Brace: No Gait Deviations General Gait Pattern Decreased Stride Length Decreased Feet Clearance Step-to Gait Factors Limiting Gait Function Factors Limiting Gait Function Decreased Activity Tolerance Decreased Strength Limited Range of Motion Pain Respiratory Distress M5 PT-IP Objective Assessments Start: 05/10/18 12:59 Freq: NEEDED Status: Active Protocol: Document 05/10/18 11:00 (Rec: 05/10/18 13:19 [email or web address]) Orientation Orientation/Cognition Level of Alertness Alert Orientation Name Age Birthday Month Date Year Day of Week Place Situation Language Function Ability No Deficits Noted Safety Awareness Understands Safety Issues Memory Description No Deficits Noted Gross Range of Motion Upper Extremity ROM Assessment Within Functional Limits Lower Extremity ROM Assessment Within Functional Limits Strength Upper Extremity Strength Assessment Within Functional Limits Lower Extremity Strength Assessment Bilaterally Impaired Comments Strength Comments 3+/5 for B LEs. Coordination Assessment Gross Coordination Gross Coordination WNL Sensation Assessment Sensation Gross Sensation WNL Light Touch Intact Proprioception (Position) Intact Muscle Tone Muscle Tone WNL Yes M6 PT-IP Treatment Start: 05/10/18 12:59 Freq: NEEDED Status: Active Protocol: Document 05/10/18 11:00 (Rec: 05/10/18 13:19 [email or web address]) Physical Therapy Treatment Exercises Exercises Quad Sets Education Education Provided Safety M7 PT-IP Assessment and Plan Start: 05/10/18 12:59 Freq: NEEDED Status: Active Protocol: Document 05/11/18 14:15 GGD (Rec: 05/11/18 15:24 GGD [id number]) PT Summary Assessment and Plan Summary Assessment Summary Pt improving with mobility. She was able to progress gait. She did need cues for log roll. She hopes to D/C to family home, but needs to safe on stair mobility. Pt had improved tolerance and would benefit from PT BID . Frequency of Treatment Frequency Of Treatment Twice a Day Treatment Plan Physical Therapy Treatment Plan Bed Mobility Training Transfer Training Gait Training Therapeutic Exercise Discharge Planning Hot or Cold Pack Other Recommendations and Next Treatment Bed mob, transfer and gait Focus training as nanda climb stair 3 steps if possible Recommendations To Nursing Amount of Assist Needed 1 Person Assist Discharge Recommendations PT Discharge Recommendations Home with Assistance
--- NOTE | 2018-05-11 15:45 | PC.NURSE ---
Pt Completed 1 unit of PRBC and second started, Pt with increased Resp effort and crackles to bases and mid lobe, Spo2 2l 98%, Call into Dr Ruano office, Tania given message for possible fluid overloading. Dr Ruano will call back to update staff, and family is under the impression he is going to be back in to update Pt tonight. PT on hold for afternoon.
--- NOTE | 2018-05-11 16:05 | CM.DPC ---
DCP HH Planning Per MD, pt getting blood transfusion today and per PT pt was quite weak yesterday and will work with pt after transfusion. JADE met bedside with pt, spouse, and family in the room and explained role again and checked in and since pt was currently getting her transfusion then they were not quite sure of their d/c needs yet. SW received a call from pt's Dtr/BRENDA Olivady ([phone]) stating that she feels that her mom will need HH RN/PT at discharge and that if really needed then they would be willing to consider SNF but they are hopeful for home. Dtr concerned that pt's spouse may be starting to have some memory issues. SW discussed HH services and frequency and the only HH agency covering [facility] at this time is [facility] . Dtr is agreeable with [facility] referral but fax machine currently down and referral was not able to be made. Plan: SW to follow tomorrow, Tuesday, with making referral to [facility] and following to determine if pt will be safe for return home with HH vs possible SNF. KELL Shaikh
--- NOTE | 2018-05-11 17:14 | OT.IP.EVAL ---
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) ASVD (arteriosclerotic vascular disease) (Acute) Easy bruisability (Acute) Iliac artery stenosis, bilateral (Acute) Surgical History (Last Updated 05/10/18 @ 07:58 by Miguel Ruano MD) S/P lumbar fusion (Inactive) Hx of sinus surgery (Acute) Status post bilateral cataract extraction (Acute) Occupational Therapy Inpatient Evaluation/Re-Eval M1 PT/OT-IP Prior Functional Status Start: 05/10/18 12:59 Freq: NEEDED Status: Active Protocol: Document 05/11/18 16:43 CGR (Rec: 05/11/18 17:14 CGR [email or web address]) Medical Review Prior Functional Status Medical History Reviewed Yes Communication No communication deficits noted. Able to make needs known Mobility and Gait Independent without AD at home and community. Able to drive and go to doctors appt. Activities of Daily Living and IADL's Independent with ADLs and IADLs without AD. Social History Household Members spouse Living Arrangements House Number of Floors (Floors) 3 or More Floors Number of Stairs To Enter/Railing? 2 steps without railing to front door. Sliding door has 2 steps with railing either on the right or the left depending on which set of stairs she goes up. 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 Pt had recent spinal surgery in November and was able to d/c home with spouse and Dtrs and outpt PT. Pt was able to recover fully after sx without using an AD afterwards. Pt did not have a fall over the past few years and claimed she is very mobile and safe at all times. Home is 3 levels with 2 stairs to enter but she is able to stay on the main level for all ADLs and IADLs. She typically uses a tub shower combo but has a walk in shower that she can use on the same main level . M2 OT-IP Current Condition Start: 05/10/18 14:07 Freq: Status: Active Protocol: Document 05/11/18 16:43 CGR (Rec: 05/11/18 17:14 CGR [email or web address]) Occupational Therapy Current Condition Current Condition Evaluation Date 05/11/18 Treatment Diagnosis GLF Diagnosis Onset Date 05/09/18 M3 OT- IP Subjective and Pain Start: 05/10/18 14:07 Freq: Status: Active Protocol: Document 05/11/18 16:43 CGR (Rec: 05/11/18 17:14 CGR [email or web address]) OT- Subjective Occupational Therapy Visit Type Type Initial Evaluation Visit Start Time 15:25 Visit Stop Time 16:05 Total Visit Minutes 30 Notes Note limited mobility on this date d/t active blood infusion . Occupational Therapy Visit Comments Patient Comments Pt states that she was able to do everything on her own prior to the fall and expects to be fine to discharge home. Patient/Caregiver Goals Family is hopeful for a safe return home, however, daughter plans to stay with pt for one week upon returning home and pt will go to other daughters home in [facility] if necessary when help is no longer available at home. OT Pain Assessment Pain When Pain Assessed None noted Pain Present Pain Present Denied Pain M4 OT- IP ADL's Start: 05/10/18 14:07 Freq: Status: Active Protocol: Document 05/11/18 16:43 CGR (Rec: 05/11/18 17:14 CGR [email or web address]) OT ADL-Grooming Comments OT Grooming Comments Pt restricted to chair activities and declined at grooming at this time. OT ADL-Dressing General Eval Upper Body Dressing Ability Standby Assistance Comments OT Dressing Comments Limited dressing d/t current blood transfusion. OT ADL-Toileting Comments OT Toileting Comments Not performed, pt with clayton cath. OT ADL-Bathing Comments OT Bathing Comments Not performed on this date d/t current blood transfusion. M5 OT- IP IADL's Start: 05/10/18 14:07 Freq: Status: Active Protocol: Document 05/11/18 16:43 CGR (Rec: 05/11/18 17:14 CGR [email or web address]) OT-Instrumental Activities of Daily Living Home Safety Awareness Awareness of Need for Assistance at Home Decreased Awareness Ability to Problem Solve Emergency Able to Problem Solve Situations Home Safety Comments Discussed home safety and home safety equipment at length with daughter and pt. Daughter very supportive of grab bars, shower chair, 2ww, and railing to enter home. Pt appears skepticle that she will need equipment but appears agreeable. M6 OT- IP Functional Cognition Start: 05/10/18 14:07 Freq: Status: Active Protocol: Document 05/11/18 16:43 CGR (Rec: 05/11/18 17:14 CGR [email or web address]) Cognitive Factors Limiting Selfcare Function Cognitive Ability Level of Alertness Alert Patient Orientation Name Month Date Year Day of Week Place Situation Attention Span Ability Capable of Focused Attention Capable of Sustained Attention Ability to Follow Commands Able to Follow Multi-Step Commands Memory Description No Deficits Noted Safety Awareness Underestimates Need for Assistance Problem Solving Ability No deficits Noted Executive Function Ability No Deficits Noted Abstract Thinking Ability No Deficits Noted OT- Vision and Hearing OT- Hearing Assessment OT- Hearing Assessment WFL OT- Vision Assessment Visual Acuity WFL Glasses All The Time Visual Attentiveness WFL Occular Pursuits WFL Visual Convergence WFL Visual Crocker WFL Diplopia Absent Visual Spacial Neglect Not Applicable Vision Assessment Comments Wears bifocals, able to read name badge. M7 OT- IP Mobility and Balance Start: 05/10/18 14:07 Freq: Status: Active Protocol: Document 05/11/18 16:43 CGR (Rec: 05/11/18 17:14 CGR [email or web address]) OT-Transfer Assessment Sit to and From Stand Sit to and from Stand Standby Assistance Transfers Transfer Ability Standby Assistance Comments Mobility Comments Pt tolerated sit to stand from chair but with decrease in o2 from mid 90s to high 70s with good waveform. Instructed on breathing technique, returned to seated and O2 stats improved quickly. Pt on NC 2L. OT- Gait Assessment Comments Gait Ability Comments Not performed d/t blood transfusion and decline in O2 stats with standing. OT- Balance Assessment Sitting Balance and Reactions Static Sitting Balance Ability Normal Dynamic Sitting Balance Ability Normal Standing Balance and Reactions Static Standing Balance Ability Good Dynamic Standing Balance Ability Good M8 OT- IP Objective Assessments Start: 05/10/18 14:07 Freq: Status: Active Protocol: Document 05/11/18 16:43 CGR (Rec: 05/11/18 17:14 CGR [email or web address]) OT Gross Range of Motion Upper Extremity Range of Motion Assessment Within Functional Limits OT Strength Upper Extremity Strength Assessment Within Functional Limits Hand Certified Medical Records Coder Strength Hand Dominance Right Comments Strength Comments grossly 4/5 throughout OT- Coordination Assessment Upper Extremity Finger to Nose Test Within Functional Limits Finger Tapping Test Within Functional Limits OT-Muscle Tone Assessment Muscle Tone WNL Yes OT Sensation Assessment Comments Summary Comments WFL to UE and neck. Edema Edema Absent M9 OT- IP Assessment and Plan Start: 05/10/18 14:07 Freq: Status: Active Protocol: Document 05/11/18 16:43 CGR (Rec: 05/11/18 17:14 CGR [email or web address]) OT Summary Assessment and Plan Potential Rehabilitation Potential Good Analytic Complexity at Evaluation Moderate Summary OT Impairments Balance Functional Mobility Grooming Dressing Toileting Bathing Toilet Transfers Shower Transfers Goals Grooming Goal Independent Dressing Goal Independent Toileting Goal Independent Bathing Goal Independent Toilet Transfer Goal Independent Shower Transfer Goal Independent Frequency of Treatment Frequency Of Treatment Once a Day Treatment Plan OT Treatment Plan ADL Training Functional Mobility Patient/Family Education Discharge Planning Other Treatment Recommendations and Next Endurance and home safety. Treatment Focus Discharge Recommendations OT Discharge Recommendations Home with 06/09 Assist Other Discharge Recommendations Daughter plans to discharge home with patient for one week . If pt still needs assist at that time pt will go to a different [facility] home in [facility]. Home Equipment Needs Recommend grab bars at toilet and shower, handrail at entry for 2 steps, 3 in 1 for shower chair (also educated on use as a toilet heightner and BSC if needed, mobility device per P.T. recommendation.
[2018-05-11] MEDS: FUROSEMIDE 40 MG/4 ML VIAL IV (17:18)
--- NOTE | 2018-05-11 18:16 | PC.NURSE ---
Addendum entered by Daly Bhatti R.N. 05/11/18 22:09: 2200 - Pt requesting rx for pain, c/o pain to back and bilateral hips. Pt had declined 1800 visteral, prefers not to take narcotics, agreeable to take APAP and MN dose of visteral given early. Pt lung sounds course posteriorly, however improved from prior to lasix administration. Monitor. Call light in reach. Original Note: Addendum entered by Daly Bhatti R.N. 05/11/18 20:28: 2020 - Pt daughter, Rayna, called states that both her and pt sister noticed to pt speech, doesn't sound like her. When asked about examples, Rayna states that speech sounds slurred she says that the patients sister asked Did she have a stroke? Pt denies feeling like her speech has changed. Reports feeling dryness to nares r/t O2 use. No facial droop, no unilateral weakness, PERRLA, Pt denies injury to tongue. Educated pt and family to stroke symptoms. Monitor. Bed alarm on. Call light in reach. Pt declines bowel meds r/t large BM this evening. Original Note: Addendum entered by Daly Bhatti R.N. 05/11/18 18:40: 1830 - Pt continues to c/o catheter discomfort. Dela Cruz found to be leaking. Pad wet. Dela Cruz catheter d/c'd per pt request. Original Note: 1730 - PRBC infusion complete. Lasix given. Pt requesting to return to bed. C/O catheter discomfort. Catheter placement assessed and adjusted, leg strap in place. Monitor.
[2018-05-11] MEDS: ACETAMINOPHEN 325 MG TABLET 650 MG PO (22:04)
[2018-05-12] VITALS (7 sets, daily range): BP systolic 105–162; BP diastolic 59–78; PULSE 87–95; RESP 18–24; TEMP 36.4–36.8; O2SAT 92–98
[2018-05-12 05:38] LABS: Add Manual Diff / Slide Review NO; Basophils Absolute Auto 0 /uL (0-100); Basophils Percent Auto 0.3 % (0-2); Eosinophils Absolute Auto 100 /uL (0-450); Eosinophils Percent Auto 1.9 % (2-4); Lymphocytes Absolute Auto 1000 /uL (1100-4500); Lymphocytes Percent Auto 12.9 % (25-40); Mean Corpuscular HGB Conc 35.8 % (30-36); Mean Corpuscular Hemoglobin 34.1 PG (26-34); Monocytes Absolute Auto 700 /uL (0-900); Monocytes Percent Auto 9.4 % (3-14); Neutrophils Absolute Auto 5800 /uL (1500-7000); Neutrophils Percent Auto 75.5 % (50-75); Platelet Count 153 X10^3/uL (150-400); Red Blood Cell Count 2.94 X10^6/uL (4.0-5.2); Red Cell Distribution Width 18.3 % (11.6-14.8); White Blood Cell Count 7.7 X10^3/uL (4.5-11.0)
[2018-05-12 05:47] LABS: BUN Creatinine Ratio 13.3 (6-22); Blood Urea Nitrogen 8 mg/dL (7-17); Calcium 7.9 mg/dL (8.4-10.2); Carbon Dioxide 30 mmol/L (22-32); Chloride 102 mmol/L (98-107); Estimated Glomerular Filt Rate > 60.0 mL/min (>60); Glucose 96 mg/dL (80-110); HEMOLYSIS < 15 (0-50); Potassium 2.9 mmol/L (3.4-5.1); Sodium 136 mmol/L (137-145)
[2018-05-12 05:50] LABS: Mean Corpuscular Volume 95.3 fL (80-100)
--- NOTE | 2018-05-12 06:29 | PC.NURSE ---
Uneventful overnight shift. Pt slept without complaints for the majority of the night. Up to BSC with 1PA. Voided 500 mL without difficulty. No c/o pain. H/H holding steady this AM at 12/11. K+ 2.9, Dr. Ruano made aware, no orders at this time. No acute changes this shift.
--- NOTE | 2018-05-12 08:11 | P.PN_ITS ---
Subjective Date Patient Seen: 05/12/18 Time Patient Seen: 08:07 Interval history: Patient had reasonably good night. Says her breathing feels better. Feels stronger easier roll around and move in bed etc. breakfast not yet arrived. No abdominal pain whatsoever. Did have some loose stool last night. Exam Vital Signs (past 8 hours): - 05/12/18 03:27 Temperature 98.0 F Pulse Rate 91 H Respiratory Rate 22 Blood Pressure 136/78 Pulse Oximetry 98 Oxygen Delivery Method Nasal Cannula Oxygen Flow Rate 1.5 Narrative Exam Narrative: HEENT-ecchymoses around left eye unchanged Neck-no lymphadenopathy Lungs-diminished breath sounds scattered crackles at the bases Heart-regular rate and rhythm Abdomen-soft nontender nondistended Extremities-no edema Objective Labs Result Diagrams: 05/12/18 05:00 05/12/18 05:00 Labs: Laboratory Results - last 24 hr 05/09/18 05/09/18 05/12/18 17:53 17:53 05:00 WBC 7.7 RBC 2.94 L Hgb 10.0 L Hct 28.0 L MCV 95.3 D MCH 34.1 H MCHC 35.8 RDW 18.3 H Plt Count 153 Neut % (Auto) 75.5 H Lymph % (Auto) 12.9 L [place] % (Auto) 9.4 Eos % (Auto) 1.9 L Baso % (Auto) 0.3 Neut # (Auto) 5800 Lymph # (Auto) 1000 L [place] # (Auto) 700 Eos # (Auto) 100 Baso # (Auto) 0 Sodium 138 Potassium 4.7 Chloride 104 Carbon Dioxide 15 L BUN 19 H Creatinine 1.40 H Estimated GFR 36.3 L BUN/Creatinine Ratio 13.6 Glucose 84 Calcium 8.4 Total Bilirubin 0.6 AST 39 H ALT 37 Alkaline Phosphatase 68 Total Creatine Kinase 129 CK-MB (CK-2) 4.31 H CK-MB (CK-2) Rel Index 3.3 Troponin I < 0.012 Total Protein 5.6 L Albumin 3.2 L Globulin 2.4 Albumin/Globulin Ratio 1.3 Lipase 431 H Ethyl Alcohol < 10 Blood Type AB Positive Antibody Screen Negative Crossmatch See Detail 05/12/18 05:00 WBC RBC Hgb Hct MCV MCH MCHC RDW Plt Count Neut % (Auto) Lymph % (Auto) [place] % (Auto) Eos % (Auto) Baso % (Auto) Neut # (Auto) Lymph # (Auto) [place] # (Auto) Eos # (Auto) Baso # (Auto) Sodium 136 L Potassium 2.9 L Chloride 102 Carbon Dioxide 30 BUN 8 Creatinine 0.60 Estimated GFR > 60.0 BUN/Creatinine Ratio 13.3 Glucose 96 Calcium 7.9 L Total Bilirubin AST ALT Alkaline Phosphatase Total Creatine Kinase CK-MB (CK-2) CK-MB (CK-2) Rel Index Troponin I Total Protein Albumin Globulin Albumin/Globulin Ratio Lipase Ethyl Alcohol Blood Type Antibody Screen Crossmatch Assessment & Plan Assessment & Plan narrative: 1. Hypokalemia-a little bit surprising given her blood transfusion yesterday although she did receive Lasix. Will replace with IV potassium and recheck tomorrow 2. Acute kidney injury-resolved 3. Anemia-it is appearing more more like her anemia at least from her baseline at the end of last year, is due to acute blood loss anemia related to her fall and bleeding in her home. Her family is quite adamant that the amount of blood contained in her bedroom was really quite a bit. I also suspect if that is not the case than her anemia predates her fall and may be contributed to her syncopal spell. Will follow along here in the hospital after she has now received transfusion looking for evidence of blood loss and/or watching her b lood counts. Depending on clinical course she may may not need evaluation for GI bleeding. She does need to continue on the anti-platelet therapy. 4. Fractured rib and vertebral body-actually is less symptomatic than I would have expected. Will certainly continue with physical therapy occupational therapy etc. 5. Syncope-again no clear etiology for this at this point. Patient did have some volume overload after transfusion yesterday and on the basis of that plus her syncopal spell I think she deserves echocardiography which is scheduled for today. Thus far her rhythm has been stable to but no obvious cardiac etiology. 6. Patient's other medical issues appear stable. Continue to follow expectantly. I do anticipate she will be able to return home when ready for discharge which is likely 2+ days away.
[2018-05-12] MEDS: POTASSIUM CHLORIDE 60 MEQ in SODIUM CHLORIDE 0.9% 500 ML 88.333 ML IV (08:52)
[2018-05-12] MEDS: ASPIRIN EC 81 MG TABLET PO (08:59)
[2018-05-12] MEDS: DOCUSATE 100 MG CAPSULE PO ×2 (08:59→20:51)
[2018-05-12] MEDS: CLOPIDOGREL 75 MG TABLET PO (08:59)
[2018-05-12] MEDS: ATORVASTATIN 20 MG TABLET 40 MG PO (08:59)
[2018-05-12] MEDS: CALCITONIN,SALMON, NASAL SPRAY 1 SPRAYS NASAL (08:59)
[2018-05-12] MEDS: PANTOPRAZOLE 40 MG VIAL IV (09:00)
[2018-05-12] MEDS: ACETAMINOPHEN 325 MG TABLET 650 MG PO ×2 (09:00→20:51)
--- NOTE | 2018-05-12 11:20 | PT.IPTN ---
Current Diagnoses Acute kidney failure, unspecified (05/09/18) Physical Therapy Treatment Note M2 PT-IP Current Condition Start: 05/10/18 12:59 Freq: NEEDED Status: Active Protocol: Document 05/10/18 11:00 HH (Rec: 05/10/18 13:19 HH [email or web address]) Physical Therapy Current Condition Current Condition Evaluation Date 05/10/18 Treatment Diagnosis GLF, spinal compression fx, rib fx, AKF, impaired gait and activity nanda. Onset Date 05/09/18 Weight Bearing Status Weight Bearing Status Weight Bear as Tolerated M3 PT-IP Subjective Start: 05/10/18 12:59 Freq: NEEDED Status: Active Protocol: Document 05/12/18 11:20 GGD (Rec: 05/12/18 11:40 GGD [email or web address]) Subjective Physical Therapy Visit Type Type Treatment Note Visit Start Time 10:55 Visit Stop Time 11:20 Total Visit Minutes 25 Number of SHIP'S PILOT Visits 2 Physical Therapy Visit Comments Patient Comments Pt states that she is feeling better. Therapy Pain Assessment Pain When Pain Assessed During Mobility Pain Present Pain Present Pain Reported M4 PT-IP Mobility and Gait Start: 05/10/18 12:59 Freq: NEEDED Status: Active Protocol: Document 05/12/18 11:20 GGD (Rec: 05/12/18 11:40 GGD [email or web address]) PT-Bed Mobility Assessment Rolling Type of Rolling Roll to Right Level of Assist Contact Guard Assistance Supine to Sit Supine to Sit Contact Guard Assistance Bedrails Sit to Supine Sit to Supine Contact Guard Assistance Bedrails Scooting Scooting to Edge of Bed Contact Guard Assistance PT-Transfer Assessment Sit to and From Stand Sit to and from Stand Contact Guard Assistance Use of Upper Extremities Equipment Transfer Assistive Device Gait Belt Front Wheeled Walker Orthotic/Prosthetic Devices or Brace: No Transfers Transfer Destination Bed Transfer Ability Level of Assist Contact Guard Assistance Use of Upper Extremities Comments Mobility Comments need min cues for full log roll. Gait Assessment Gait Gait Assistance Required: Standby Assistance Contact Guard Assist Distance (Feet) 160 Able to Maintain Weight Bearing Status Yes During Gait Assistive Devices Assistive Device None Gait Belt Front Wheeled Walker Orthotic/Prosthetic Devices or Brace: No Gait Deviations General Gait Pattern Decreased Stride Length Decreased Feet Clearance Step-to Gait Factors Limiting Gait Function Factors Limiting Gait Function Decreased Activity Tolerance Decreased Strength Limited Range of Motion Pain Respiratory Distress Comments Gait Comments Pt ambulated 140 feet with FWW with SBA and then 20 feet without assistive device with CGA. Stair Climbing Assessment Evaluation Level of Assist On Stairs Contact Guard Assistance Devices Stair Climbing Assistive Devices Right Railing Technique/Endurance Stair Climbing Direction Ascend and Descend Stair Climbing Technique Step to Step Number of Steps Climbed 1 Query Text: Stair Climbing Set # Repetitions (reps) 6 M5 PT-IP Objective Assessments Start: 05/10/18 12:59 Freq: NEEDED Status: Active Protocol: Document 05/10/18 11:00 (Rec: 05/10/18 13:19 [email or web address]) Orientation Orientation/Cognition Level of Alertness Alert Orientation Name Age Birthday Month Date Year Day of Week Place Situation Language Function Ability No Deficits Noted Safety Awareness Understands Safety Issues Memory Description No Deficits Noted Gross Range of Motion Upper Extremity ROM Assessment Within Functional Limits Lower Extremity ROM Assessment Within Functional Limits Strength Upper Extremity Strength Assessment Within Functional Limits Lower Extremity Strength Assessment Bilaterally Impaired Comments Strength Comments 3+/5 for B LEs. Coordination Assessment Gross Coordination Gross Coordination WNL Sensation Assessment Sensation Gross Sensation WNL Light Touch Intact Proprioception (Position) Intact Muscle Tone Muscle Tone WNL Yes M6 PT-IP Treatment Start: 05/10/18 12:59 Freq: NEEDED Status: Active Protocol: Document 05/12/18 11:20 GGD (Rec: 05/12/18 11:40 GGD [email or web address]) Physical Therapy Treatment Other Treatments Other Treatment Performed standing heel raises, standing balance with NBOS EO/EC, tandem with EO and SLS. Needing CGA to min A with tandem and SLS M7 PT-IP Assessment and Plan Start: 05/10/18 12:59 Freq: NEEDED Status: Active Protocol: Document 05/12/18 11:20 GGD (Rec: 05/12/18 11:40 GGD [email or web address]) PT Summary Assessment and Plan Summary Assessment Summary Pt improving with mobility and stability. She had improved stability with gait with FWW and without. She did have increase unsteadiness but no LOB with gait without assistive device. She is safe for gait with FWW. Pt safe for home D/C with assist when medically stable. Frequency of Treatment Frequency Of Treatment Twice a Day Treatment Plan Physical Therapy Treatment Plan Bed Mobility Training Transfer Training Gait Training Therapeutic Exercise Discharge Planning Hot or Cold Pack Recommendations To Nursing Amount of Assist Needed 1 Person Assist Discharge Recommendations PT Discharge Recommendations Home with Assistance
--- NOTE | 2018-05-12 13:16 | OT.IP.TRT ---
Current Diagnoses Acute kidney failure, unspecified (05/09/18) Occupational Therapy Treatment Note M2 OT-IP Current Condition Start: 05/10/18 14:07 Freq: Status: Active Protocol: Document 05/12/18 12:59 CGR (Rec: 05/12/18 13:15 CGR [id number]) Occupational Therapy Current Condition Current Condition Evaluation Date 05/11/18 Treatment Diagnosis GLF M3 OT- IP Subjective and Pain Start: 05/10/18 14:07 Freq: Status: Active Protocol: Document 05/12/18 12:59 CGR (Rec: 05/12/18 13:15 CGR [id number]) OT- Subjective Occupational Therapy Visit Type Type Treatment Note Visit Start Time 11:15 Visit Stop Time 11:41 Total Visit Minutes 26 Occupational Therapy Visit Comments Patient Comments Pt states that she feels much better today. OT Pain Assessment Pain Present Pain Present Denied Pain M4 OT- IP ADL's Start: 05/10/18 14:07 Freq: Status: Active Protocol: Document 05/12/18 12:59 CGR (Rec: 05/12/18 13:15 CGR [id number]) OT ADL-Grooming Comments OT Grooming Comments Pt declines grooming at this time. Recently completed P.T. and states fatigue. OT ADL-Dressing General Eval Upper Body Dressing Ability Independent Lower Body Dressing Ability Independent Comments OT Dressing Comments Pt demonstrated donning and doffing socks without assist, SOB, or difficulty. OT ADL-Toileting General Evaluation Toileting Ability Independent Devices Toileting Assistive Devices Commode Comments OT Toileting Comments Brief and hospital gown. M5 OT- IP IADL's Start: 05/10/18 14:07 Freq: Status: Active Protocol: Document 05/11/18 16:43 CGR (Rec: 05/11/18 17:14 CGR [email or web address]) OT-Instrumental Activities of Daily Living Home Safety Awareness Awareness of Need for Assistance at Home Decreased Awareness Ability to Problem Solve Emergency Able to Problem Solve Situations Home Safety Comments Discussed home safety and home safety equipment at length with daughter and pt in yesterdays session. Daughter very supportive of grab bars, shower chair, 2ww, and railing to enter home. Pt appears skeptical that she will need equipment but appears agreeable. M6 OT- IP Functional Cognition Start: 05/10/18 14:07 Freq: Status: Active Protocol: Document 05/12/18 12:59 CGR (Rec: 05/12/18 13:15 CGR [id number]) Cognitive Factors Limiting Selfcare Function Cognitive Ability Level of Alertness Alert Patient Orientation Name Age Birthday Month Date Year Day of Week Place Situation Attention Span Ability Capable of Focused Attention Ability to Follow Commands Able to Follow Multi-Step Commands M7 OT- IP Mobility and Balance Start: 05/10/18 14:07 Freq: Status: Active Protocol: Document 05/12/18 12:59 CGR (Rec: 05/12/18 13:15 CGR [id number]) OT- Bed Mobility Assessment Rolling Type of Rolling Roll to Right Level of Assistance Independent Supine to Sit Supine to Sit Assist Standby Assistance Sit to Supine Sit to Supine Assist Standby Assistance Scooting Scooting to Edge of Bed Independent Scooting Up and Down in Bed Independent OT-Transfer Assessment Sit to and From Stand Sit to and from Stand Standby Assistance Transfers Transfer Ability Standby Assistance Technique Transfer Destination Bed Toilet Devices Transfer Assistive Devices Front Wheeled Walker Orthotic/Prosthetic Devices or Brace: No Comments Mobility Comments Pt able to get off low toielt with use of GB. Used FWW for mobility around the room and to the bathroom. OT- Balance Assessment Sitting Balance and Reactions Static Sitting Balance Ability Normal Dynamic Sitting Balance Ability Normal Standing Balance and Reactions Static Standing Balance Ability Normal Dynamic Standing Balance Ability Normal M8 OT- IP Objective Assessments Start: 05/10/18 14:07 Freq: Status: Active Protocol: Document 05/11/18 16:43 CGR (Rec: 05/11/18 17:14 CGR [email or web address]) OT Gross Range of Motion Upper Extremity Range of Motion Assessment Within Functional Limits OT Strength Upper Extremity Strength Assessment Within Functional Limits Hand Binman Strength Hand Dominance Right Comments Strength Comments grossly 4/5 throughout OT- Coordination Assessment Upper Extremity Finger to Nose Test Within Functional Limits Finger Tapping Test Within Functional Limits OT-Muscle Tone Assessment Muscle Tone WNL Yes OT Sensation Assessment Comments Summary Comments WFL to UE and neck. Edema Edema Absent M9 OT- IP Assessment and Plan Start: 05/10/18 14:07 Freq: Status: Active Protocol: Document 05/12/18 12:59 CGR (Rec: 05/12/18 13:15 CGR [id number]) OT Summary Assessment and Plan Potential Rehabilitation Potential Excellent Summary OT Impairments Balance Functional Mobility Grooming Bathing Shower Transfers Progress Towards Goals Progressing Toward Goals Frequency of Treatment Frequency Of Treatment Once a Day Treatment Plan OT Treatment Plan ADL Training Functional Mobility Patient/Family Education Discharge Recommendations OT Discharge Recommendations Home with Assistance Other Discharge Recommendations Daughter plans to discharge home with patient for one week . If pt still needs assist at that time pt will go to a different daughters home in [facility]. Home Equipment Needs Recommend grab bars at toilet and shower, handrail at entry for 2 steps, 3 in 1 for shower chair (also educated on use as a toilet heightner and BSC if needed, mobility device per P.T. recommendation.
--- NOTE | 2018-05-12 14:55 | PT.IPTN ---
Current Diagnoses Acute kidney failure, unspecified (05/09/18) Physical Therapy Treatment Note M2 PT-IP Current Condition Start: 05/10/18 12:59 Freq: NEEDED Status: Active Protocol: Document 05/10/18 11:00 HH (Rec: 05/10/18 13:19 HH [email or web address]) Physical Therapy Current Condition Current Condition Evaluation Date 05/10/18 Treatment Diagnosis GLF, spinal compression fx, rib fx, AKF, impaired gait and activity nanda. Onset Date 05/09/18 Weight Bearing Status Weight Bearing Status Weight Bear as Tolerated M3 PT-IP Subjective Start: 05/10/18 12:59 Freq: NEEDED Status: Active Protocol: Document 05/12/18 14:40 GGD (Rec: 05/12/18 14:55 GGD [email or web address]) Subjective Physical Therapy Visit Type Type Treatment Note Visit Start Time 14:10 Visit Stop Time 14:35 Total Visit Minutes 25 Number of HRIS ANALYST Visits 3 Physical Therapy Visit Comments Patient Comments Pt would like to go back to bed. Therapy Pain Assessment Pain When Pain Assessed During Mobility Pain Present Pain Present Pain Reported Location Lower Back Intensity 4 Scale Used Numeric (1 - 10) M4 PT-IP Mobility and Gait Start: 05/10/18 12:59 Freq: NEEDED Status: Active Protocol: Document 05/12/18 14:40 GGD (Rec: 05/12/18 14:55 GGD [email or web address]) PT-Bed Mobility Assessment Rolling Type of Rolling Roll to Right Level of Assist Contact Guard Assistance Sit to Supine Sit to Supine Standby Assistance Bedrails Scooting Scooting to Edge of Bed Standby Assistance PT-Transfer Assessment Sit to and From Stand Sit to and from Stand Contact Guard Assistance Use of Upper Extremities Equipment Transfer Assistive Device None Gait Belt Orthotic/Prosthetic Devices or Brace: No Transfers Transfer Destination Bed Transfer Ability Level of Assist Contact Guard Assistance Use of Upper Extremities Gait Assessment Gait Gait Assistance Required: Standby Assistance Contact Guard Assist Distance (Feet) 160 Able to Maintain Weight Bearing Status Yes During Gait Assistive Devices Assistive Device None Gait Belt Orthotic/Prosthetic Devices or Brace: No Gait Deviations General Gait Pattern Decreased Stride Length Decreased Feet Clearance Step-to Gait Factors Limiting Gait Function Factors Limiting Gait Function Decreased Activity Tolerance Decreased Strength Limited Range of Motion Pain Respiratory Distress Comments Gait Comments O2 at rest on RA 93% with activity 89-90% M5 PT-IP Objective Assessments Start: 05/10/18 12:59 Freq: NEEDED Status: Active Protocol: Document 05/10/18 11:00 HH (Rec: 05/10/18 13:19 [email or web address]) Orientation Orientation/Cognition Level of Alertness Alert Orientation Name Age Birthday Month Date Year Day of Week Place Situation Language Function Ability No Deficits Noted Safety Awareness Understands Safety Issues Memory Description No Deficits Noted Gross Range of Motion Upper Extremity ROM Assessment Within Functional Limits Lower Extremity ROM Assessment Within Functional Limits Strength Upper Extremity Strength Assessment Within Functional Limits Lower Extremity Strength Assessment Bilaterally Impaired Comments Strength Comments 3+/5 for B LEs. Coordination Assessment Gross Coordination Gross Coordination WNL Sensation Assessment Sensation Gross Sensation WNL Light Touch Intact Proprioception (Position) Intact Muscle Tone Muscle Tone WNL Yes M6 PT-IP Treatment Start: 05/10/18 12:59 Freq: NEEDED Status: Active Protocol: Document 05/12/18 14:40 GGD (Rec: 05/12/18 14:55 GGD [email or web address]) Physical Therapy Treatment Exercises Exercises Ankle Pumps Gluteal Sets Quad Sets Heel Slides Equipment Issued Equipment Type and Company Family has needed equipment. M7 PT-IP Assessment and Plan Start: 05/10/18 12:59 Freq: NEEDED Status: Active Protocol: Document 05/12/18 14:40 GGD (Rec: 05/12/18 14:55 GGD [email or web address]) PT Summary Assessment and Plan Summary Assessment Summary Pt improving with mobility. She was able to progress gait without assistive device, with mild unsteadiness, but no LOB . She improved with bed mobility. Frequency of Treatment Frequency Of Treatment Twice a Day Treatment Plan Physical Therapy Treatment Plan Bed Mobility Training Transfer Training Gait Training Therapeutic Exercise Discharge Planning Hot or Cold Pack Recommendations To Nursing Amount of Assist Needed 1 Person Assist Discharge Recommendations PT Discharge Recommendations Home with Assistance Home Health
[2018-05-12] MEDS: OXYCODONE IR 5 MG TABLET PO (17:32)
--- NOTE | 2018-05-12 18:46 | PC.NURSE ---
1729 - Pt c/o significant back pain. Requesting oxycodone. Discussed pain medication and increased activity today. RX given. Pt family expressing concerns with pt feeling chilled today. Pt temp check 99.0 degrees, with multiple blankets in place. Reinforced IS use deep breath and cough. Call light in reach. 1899 - Pt up SBA with FWW to bathroom. Continues to c/o pain 5 of 10. Visteral given.
[2018-05-12] MEDS: hydrOXYzine pamoate 25 MG CAPSULE PO (19:00)
[2018-05-12] MEDS: SENNOSIDES 8.6 MG TABLET PO (20:51)
[2018-05-13] VITALS (7 sets, daily range): BP systolic 97–143; BP diastolic 43–69; PULSE 77–98; RESP 18–24; TEMP 36.6–37.2; O2SAT 91–95
[2018-05-13 05:04] LABS: Hematocrit 29.1 % (36-46); Hemoglobin 10.2 g/dL (12.0-16.0)
[2018-05-13 05:09] LABS: BUN Creatinine Ratio 11.7 (6-22); Blood Urea Nitrogen 7 mg/dL (7-17); Calcium 8.2 mg/dL (8.4-10.2); Carbon Dioxide 25 mmol/L (22-32); Chloride 105 mmol/L (98-107); Estimated Glomerular Filt Rate > 60.0 mL/min (>60); Glucose 92 mg/dL (80-110); HEMOLYSIS < 15 (0-50); Sodium 134 mmol/L (137-145)
[2018-05-13 05:58] LABS: Vitamin B12 505 pg/mL (239-931)
[2018-05-13] MEDS: ATORVASTATIN 20 MG TABLET 40 MG PO (08:32)
[2018-05-13] MEDS: CALCITONIN,SALMON, NASAL SPRAY 1 SPRAYS NASAL (08:32)
[2018-05-13] MEDS: ASPIRIN EC 81 MG TABLET PO (08:32)
[2018-05-13] MEDS: PANTOPRAZOLE 40 MG VIAL IV (08:33)
[2018-05-13] MEDS: CLOPIDOGREL 75 MG TABLET PO (08:33)
[2018-05-13] MEDS: ACETAMINOPHEN 325 MG TABLET 650 MG PO (08:34)
[2018-05-13] MEDS: SODIUM CHLORIDE 0.9% FLUSH 10 ML IV ×2 (08:34→20:28)
[2018-05-13] MEDS: hydrOXYzine pamoate 25 MG CAPSULE PO ×2 (09:23→17:26)
[2018-05-13 10:14] LABS: Bilirubin Urine UA NEGATIVE (NEGATIVE); Color Urine UA YELLOW; Glucose Urine UA NEGATIVE (Negative); Ketones Urine UA NEGATIVE (NEGATIVE); Leukocyte Esterase Urine UA 1+ (NEGATIVE); Nitrite Urine UA POSITIVE (Negative); Occult Blood Urine UA 2+ (Negative); Protein Urine UA NEGATIVE (Negative); Urobilinogen Urine UA 0.2 E.U./dL (0.2); pH Urine UA 7.5 (4.5-8.0)
[2018-05-13 10:15] LABS: Appearance Urine UA Slightly Cloudy
[2018-05-13 10:20] LABS: Bacteria Urine Many (>30); Culture Indicated Urine Specimen Cultured; RBC Urine 0-1/HPF (0-5/HPF); Squamous Epithelial Cell Urine 0-1 /HPF; WBC Urine 10-30/HPF (0-5/HPF)
[2018-05-13] MEDS: OXYCODONE IR 5 MG TABLET PO ×2 (10:39→17:26)
--- NOTE | 2018-05-13 11:00 | PT.IPTN ---
Current Diagnoses Acute kidney failure, unspecified (05/09/18) Physical Therapy Treatment Note M2 PT-IP Current Condition Start: 05/10/18 12:59 Freq: NEEDED Status: Active Protocol: Document 05/10/18 11:00 HH (Rec: 05/10/18 13:19 HH [email or web address]) Physical Therapy Current Condition Current Condition Evaluation Date 05/10/18 Treatment Diagnosis GLF, spinal compression fx, rib fx, AKF, impaired gait and activity nanda. Onset Date 05/09/18 Weight Bearing Status Weight Bearing Status Weight Bear as Tolerated M3 PT-IP Subjective Start: 05/10/18 12:59 Freq: NEEDED Status: Active Protocol: Document 05/13/18 11:00 GGD (Rec: 05/13/18 11:15 GGD [email or web address]) Subjective Physical Therapy Visit Type Type Treatment Note Visit Start Time 10:35 Visit Stop Time 11:00 Total Visit Minutes 25 Number of MACHINE PROGRAMMER Visits 4 Physical Therapy Visit Comments Patient Comments Pt willing to work with therapy. Therapy Pain Assessment Pain When Pain Assessed During Mobility Pain Present Pain Present Pain Reported M4 PT-IP Mobility and Gait Start: 05/10/18 12:59 Freq: NEEDED Status: Active Protocol: Document 05/13/18 11:00 GGD (Rec: 05/13/18 11:15 GGD [email or web address]) PT-Transfer Assessment Sit to and From Stand Sit to and from Stand Contact Guard Assistance Use of Upper Extremities Equipment Transfer Assistive Device None Gait Belt Orthotic/Prosthetic Devices or Brace: No Transfers Transfer Destination Chair Transfer Ability Level of Assist Contact Guard Assistance Use of Upper Extremities Gait Assessment Gait Gait Assistance Required: Standby Assistance Contact Guard Assist Distance (Feet) 100 Able to Maintain Weight Bearing Status Yes During Gait Assistive Devices Assistive Device None Gait Belt Orthotic/Prosthetic Devices or Brace: No Gait Deviations General Gait Pattern Decreased Stride Length Decreased Feet Clearance Step-to Gait Factors Limiting Gait Function Factors Limiting Gait Function Decreased Activity Tolerance Decreased Strength Limited Range of Motion Pain Respiratory Distress Stair Climbing Assessment Evaluation Level of Assist On Stairs Contact Guard Assistance Devices Stair Climbing Assistive Devices Right Railing Technique/Endurance Stair Climbing Direction Ascend and Descend Stair Climbing Technique Step Over Step Step to Step Number of Steps Climbed 14 Query Text: Stair Climbing Set # Repetitions (reps) 1 Comments Stair Climbing Comments ascend with step over step and descend with step to step. Standing rest break at after ascending. M5 PT-IP Objective Assessments Start: 05/10/18 12:59 Freq: NEEDED Status: Active Protocol: Document 05/10/18 11:00 HH (Rec: 05/10/18 13:19 HH [email or web address]) Orientation Orientation/Cognition Level of Alertness Alert Orientation Name Age Birthday Month Date Year Day of Week Place Situation Language Function Ability No Deficits Noted Safety Awareness Understands Safety Issues Memory Description No Deficits Noted Gross Range of Motion Upper Extremity ROM Assessment Within Functional Limits Lower Extremity ROM Assessment Within Functional Limits Strength Upper Extremity Strength Assessment Within Functional Limits Lower Extremity Strength Assessment Bilaterally Impaired Comments Strength Comments 3+/5 for B LEs. Coordination Assessment Gross Coordination Gross Coordination WNL Sensation Assessment Sensation Gross Sensation WNL Light Touch Intact Proprioception (Position) Intact Muscle Tone Muscle Tone WNL Yes M6 PT-IP Treatment Start: 05/10/18 12:59 Freq: NEEDED Status: Active Protocol: Document 05/12/18 14:40 GGD (Rec: 05/12/18 14:55 GGD [email or web address]) Physical Therapy Treatment Exercises Exercises Ankle Pumps Gluteal Sets Quad Sets Heel Slides Equipment Issued Equipment Type and Company Family has needed equipment. M7 PT-IP Assessment and Plan Start: 05/10/18 12:59 Freq: NEEDED Status: Active Protocol: Document 05/13/18 11:00 GGD (Rec: 05/13/18 11:15 GGD [email or web address]) PT Summary Assessment and Plan Summary Assessment Summary Pt improving with mobility. She has slight unsteadiness with gait without assistive device and would benefit from FWW use at home. She was safe with stair mobility with one rail. She does fatigue quickly with activity and needed standing rest breaks. Goals Bed Mobility Goal Independent Transfer Goal Independent Front Wheeled Walker Gait Goal Independent Front Wheel Walker Gait Distance 150 Other Goals climb steps x 3 without railings Days to Meet Goals 5 Frequency of Treatment Frequency Of Treatment Twice a Day Treatment Plan Physical Therapy Treatment Plan Bed Mobility Training Transfer Training Gait Training Therapeutic Exercise Discharge Planning Hot or Cold Pack Other Recommendations and Next Treatment balance, gait without AD, and Focus strengthening. Recommendations To Nursing Amount of Assist Needed 1 Person Assist Discharge Recommendations PT Discharge Recommendations Home with Assistance Home Health
--- NOTE | 2018-05-13 13:20 | PM.PNPO.1 ---
Subjective Date Patient Seen: 05/13/18 Time Patient Seen: 10:20 Interval history: Patient is sitting up in bed talking with son and grandson at bedside. Her only complaint is some pain to her right rib and back area where her fracture is. She has been using her incentive spirometer. She is very anxious to return to home. We spent some time talking about [employer]. Exam Vital Signs (past 8 hours): - 05/13/18 07:44 05/13/18 08:51 05/13/18 12:12 Temperature 98.4 F 97.8 F Pulse Rate 77 98 H Respiratory Rate 18 20 Blood Pressure 121/58 L 97/43 L Pulse Oximetry 93 93 94 Oxygen Delivery Method Room Air Oxygen Flow Rate 0 Narrative Exam Narrative: General: Well-developed, well-nourished, elderly female. HEENT-ecchymoses around left Neck-supple Lungs-diminished breath sounds scattered crackles at the bases Heart-regular rate and rhythm Abdomen-soft nontender nondistended Back-mild ecchymosis over the 7th rib on the right Extremities-no edema Objective Labs Result Diagrams: 05/13/18 04:41 05/13/18 04:41 Labs: Laboratory Results - last 24 hr 05/13/18 05/13/18 05/13/18 04:41 04:41 04:41 Hgb 10.2 L Hct 29.1 L Sodium 134 L Potassium 4.0 Chloride 105 Carbon Dioxide 25 BUN 7 Creatinine 0.60 Estimated GFR > 60.0 BUN/Creatinine Ratio 11.7 Glucose 92 Calcium 8.2 L Vitamin B12 505 Urine Color Urine Appearance Urine pH Ur Specific Pike Urine Protein Urine Glucose (UA) Urine Ketones Urine Occult Blood Urine Nitrate Urine Bilirubin Urine Urobilinogen Ur Leukocyte Esterase Urine RBC Urine WBC Ur Squamous Epith Cells Urine Bacteria Ur Culture Indicated? 05/13/18 10:00 Hgb Hct Sodium Potassium Chloride Carbon Dioxide BUN Creatinine Estimated GFR BUN/Creatinine Ratio Glucose Calcium Vitamin B12 Urine Color Yellow Urine Appearance Slightly cloudy Urine pH 7.5 Ur Specific [place]ike 1.010 Urine Protein Negative Urine Glucose (UA) Negative Urine Ketones Negative Urine Occult Blood 2+ H Urine Nitrate Positive H Urine Bilirubin Negative Urine Urobilinogen 0.2 Ur Leukocyte Esterase 1+ H Urine RBC 0-1/hpf Urine WBC 10-30/hpf H Ur Squamous Epith Cells 0-1 /hpf Urine Bacteria Many (>30) H Ur Culture Indicated? Specimen cultured Assessment & Plan Post-op Time Spent With Patient 25 - 35 minutes
--- NOTE | 2018-05-13 13:25 | PM.PN.1 ---
Subjective Date Patient Seen: 05/13/18 Time Patient Seen: 10:25 Interval history: Patient is sitting up in bed talking with son and grandson at bedside. Her only complaint is some pain to her right rib and back area where her fracture is. She has been using her incentive spirometer. She is very anxious to return to home. We spent some time talking about [employer] Exam Vital Signs (past 8 hours): - 05/13/18 07:44 05/13/18 08:51 05/13/18 12:12 Temperature 98.4 F 97.8 F Pulse Rate 77 98 H Respiratory Rate 18 20 Blood Pressure 121/58 L 97/43 L Pulse Oximetry 93 93 94 Oxygen Delivery Method Room Air Oxygen Flow Rate 0 Narrative Exam Narrative: General: Well-developed, well-nourished, elderly female. HEENT-ecchymoses around left Neck-supple Lungs-diminished breath sounds scattered crackles at the bases Heart-regular rate and rhythm Abdomen-soft nontender nondistended Back-mild ecchymosis over the 7th rib on the right Extremities-no edema Objective Labs Result Diagrams: 05/13/18 04:41 05/13/18 04:41 Labs: Laboratory Results - last 24 hr 05/13/18 05/13/18 05/13/18 04:41 04:41 04:41 Hgb 10.2 L Hct 29.1 L Sodium 134 L Potassium 4.0 Chloride 105 Carbon Dioxide 25 BUN 7 Creatinine 0.60 Estimated GFR > 60.0 BUN/Creatinine Ratio 11.7 Glucose 92 Calcium 8.2 L Vitamin B12 505 Urine Color Urine Appearance Urine pH Ur Specific [place] Urine Protein Urine Glucose (UA) Urine Ketones Urine Occult Blood Urine Nitrate Urine Bilirubin Urine Urobilinogen Ur Leukocyte Esterase Urine RBC Urine WBC Ur Squamous Epith Cells Urine Bacteria Ur Culture Indicated? 05/13/18 10:00 Hgb Hct Sodium Potassium Chloride Carbon Dioxide BUN Creatinine Estimated GFR BUN/Creatinine Ratio Glucose Calcium Vitamin B12 Urine Color Yellow Urine Appearance Slightly cloudy Urine pH 7.5 Ur Specific [place] 1.010 Urine Protein Negative Urine Glucose (UA) Negative Urine Ketones Negative Urine Occult Blood 2+ H Urine Nitrate Positive H Urine Bilirubin Negative Urine Urobilinogen 0.2 Ur Leukocyte Esterase 1+ H Urine RBC 0-1/hpf Urine WBC 10-30/hpf H Ur Squamous Epith Cells 0-1 /hpf Urine Bacteria Many (>30) H Ur Culture Indicated? Specimen cultured Assessment & Plan Assessment & Plan narrative: 1. Hypokalemia-a little bit surprising given her blood transfusion although she did receive Lasix. IV potassium yesterday, normal today and recheck tomorrow 2. Acute kidney injury-resolved 3. Anemia-it is appearing more more like her anemia at least from her baseline at the end of last year, is due to acute blood loss anemia related to her fall and bleeding in her home, most likely from her head. Her family is quite adamant that the amount of blood contained in her bedroom was really quite a bit. I also suspect if that is not the case than her anemia predates her fall and may be contributed to her syncopal spell. Will follow along here in the hospital and outpatient. Depending on clinical course she may may not need evaluation for GI bleeding. She does need to continue on the anti-platelet therapy. 4. Fractured rib and vertebral body-actually is less symptomatic than I would have expected. ABle to sit up from supine without difficulty. Will certainly continue with physical therapy occupational therapy etc. 5. Syncope-again no clear etiology for this at this point. Patient did have some volume overload after transfusion, echocardiography unchanged from prior. Continues in sinus rhythm. Will discontinue telemetry today. 6. Patient's other medical issues appear stable. Continue to follow expectantly. I do anticipate she will be able to return home with daughter and home health PT likely tomorrow. Code status: full code DVT prophylaxis: asa and plavix, given recent bleed and anemia not further anticoagulation, SCD's
--- NOTE | 2018-05-13 14:45 | PT.IPTN ---
Current Diagnoses Acute kidney failure, unspecified (05/09/18) Physical Therapy Treatment Note M2 PT-IP Current Condition Start: 05/10/18 12:59 Freq: NEEDED Status: Active Protocol: Document 05/10/18 11:00 HH (Rec: 05/10/18 13:19 HH [email or web address]) Physical Therapy Current Condition Current Condition Evaluation Date 05/10/18 Treatment Diagnosis GLF, spinal compression fx, rib fx, AKF, impaired gait and activity nanda. Onset Date 05/09/18 Weight Bearing Status Weight Bearing Status Weight Bear as Tolerated M3 PT-IP Subjective Start: 05/10/18 12:59 Freq: NEEDED Status: Active Protocol: Document 05/13/18 14:45 GGD (Rec: 05/13/18 15:53 GGD [email or web address]) Subjective Physical Therapy Visit Type Type Treatment Note Visit Start Time 14:20 Visit Stop Time 14:45 Total Visit Minutes 25 Number of WIRE SPINNER Visits 5 Physical Therapy Visit Comments Patient Comments Pt states she has less pain now. M4 PT-IP Mobility and Gait Start: 05/10/18 12:59 Freq: NEEDED Status: Active Protocol: Document 05/13/18 14:45 GGD (Rec: 05/13/18 15:53 GGD [email or web address]) PT-Bed Mobility Assessment Rolling Type of Rolling Roll to Right Level of Assist Standby Assistance Supine to Sit Supine to Sit Contact Guard Assistance Bedrails Scooting Scooting to Edge of Bed Independent PT-Transfer Assessment Sit to and From Stand Sit to and from Stand Contact Guard Assistance Use of Upper Extremities Equipment Transfer Assistive Device None Gait Belt Orthotic/Prosthetic Devices or Brace: No Transfers Transfer Destination Chair Transfer Ability Level of Assist Contact Guard Assistance Use of Upper Extremities Comments Mobility Comments Pt needed cues for full log roll. Gait Assessment Gait Gait Assistance Required: Standby Assistance Contact Guard Assist Distance (Feet) 300 Able to Maintain Weight Bearing Status Yes During Gait Assistive Devices Assistive Device None Gait Belt Front Wheeled Walker Orthotic/Prosthetic Devices or Brace: No Gait Deviations General Gait Pattern Decreased Stride Length Decreased Feet Clearance Step-to Gait Factors Limiting Gait Function Factors Limiting Gait Function Decreased Activity Tolerance Decreased Strength Limited Range of Motion Pain Respiratory Distress Comments Gait Comments pt ambulated 150 feet with CGA without AD and one standing rest break. After a seated break pt ambulated 150 feet with FWW with SBA. M5 PT-IP Objective Assessments Start: 05/10/18 12:59 Freq: NEEDED Status: Active Protocol: Document 05/10/18 11:00 HH (Rec: 05/10/18 13:19 HH [email or web address]) Orientation Orientation/Cognition Level of Alertness Alert Orientation Name Age Birthday Month Date Year Day of Week Place Situation Language Function Ability No Deficits Noted Safety Awareness Understands Safety Issues Memory Description No Deficits Noted Gross Range of Motion Upper Extremity ROM Assessment Within Functional Limits Lower Extremity ROM Assessment Within Functional Limits Strength Upper Extremity Strength Assessment Within Functional Limits Lower Extremity Strength Assessment Bilaterally Impaired Comments Strength Comments 3+/5 for B LEs. Coordination Assessment Gross Coordination Gross Coordination WNL Sensation Assessment Sensation Gross Sensation WNL Light Touch Intact Proprioception (Position) Intact Muscle Tone Muscle Tone WNL Yes M6 PT-IP Treatment Start: 05/10/18 12:59 Freq: NEEDED Status: Active Protocol: Document 05/13/18 14:45 GGD (Rec: 05/13/18 15:53 GGD [email or web address]) Physical Therapy Treatment Exercises Exercises Seated Knee Flexion/Extension Other Treatments Other Treatment Performed standing heel raises, standing balance with NBOS EO/EC, tandem with EO. Standing marches, squats and heel raises. M7 PT-IP Assessment and Plan Start: 05/10/18 12:59 Freq: NEEDED Status: Active Protocol: Document 05/13/18 14:45 GGD (Rec: 05/13/18 15:53 GGD [email or web address]) PT Summary Assessment and Plan Summary Assessment Summary Pt improving with mobility. She need cues for log roll. She was stable with gait without assistive device, but fatigue. She had increase stability and decrease fatigue with gait with FWW. Frequency of Treatment Frequency Of Treatment Twice a Day Treatment Plan Physical Therapy Treatment Plan Bed Mobility Training Transfer Training Gait Training Therapeutic Exercise Discharge Planning Hot or Cold Pack Other Recommendations and Next Treatment balance, gait without AD, and Focus strengthening. Recommendations To Nursing Amount of Assist Needed 1 Person Assist Discharge Recommendations PT Discharge Recommendations Home with Assistance Home Health
[2018-05-13] MEDS: DOCUSATE 100 MG CAPSULE PO (20:28)
[2018-05-13] MEDS: SENNOSIDES 8.6 MG TABLET PO (20:28)
[2018-05-14] VITALS (8 sets, daily range): BP systolic 115–156; BP diastolic 43–63; PULSE 82–89; RESP 16–20; TEMP 36.1–37.7; O2SAT 92–95
[2018-05-14] MEDS: hydrOXYzine pamoate 25 MG CAPSULE PO ×2 (00:23→17:53)
[2018-05-14] MEDS: OXYCODONE IR 5 MG TABLET PO ×3 (00:23→20:56)
[2018-05-14 05:12] LABS: Hematocrit 31.5 % (36-46); Hemoglobin 10.6 g/dL (12.0-16.0)
[2018-05-14 05:15] LABS: Blood Urea Nitrogen 6 mg/dL (7-17); Calcium 8.8 mg/dL (8.4-10.2); Carbon Dioxide 26 mmol/L (22-32); Chloride 101 mmol/L (98-107); Estimated Glomerular Filt Rate > 60.0 mL/min (>60); Glucose 93 mg/dL (80-110); HEMOLYSIS < 15 (0-50); Potassium 4.1 mmol/L (3.4-5.1); Sodium 133 mmol/L (137-145)
--- NOTE | 2018-05-14 06:32 | PC.NURSE ---
Patient slept well after receiving 5mg Percolone and scheduled Vistaril at midnight. She woke with incontinence, voided 300ml extra pink tinged urine in BSC, denies dysuria or pain. Culture pending on UAC sent 05/13/18.
[2018-05-14] MEDS: CALCITONIN,SALMON, NASAL SPRAY 1 SPRAYS NASAL (08:29)
[2018-05-14] MEDS: ASPIRIN EC 81 MG TABLET PO (08:30)
[2018-05-14] MEDS: ATORVASTATIN 20 MG TABLET 40 MG PO (08:30)
[2018-05-14] MEDS: DOCUSATE 100 MG CAPSULE PO ×2 (08:30→20:58)
[2018-05-14] MEDS: CLOPIDOGREL 75 MG TABLET PO (08:30)
[2018-05-14] MEDS: SODIUM CHLORIDE 0.9% FLUSH 10 ML IV ×2 (08:31→20:58)
--- NOTE | 2018-05-14 11:04 | P.DS_ITS ---
History of Present Illness Chief complaint: GLF last night, unknown downtime Discharge Providers Date of admission: 05/09/18 19:46 Primary care physician: Miguel Ruano MD Consults: 05/09/18 20:38 Consult to [facility] Routine Comment: 05/10/18 08:02 Consult to Occupational Therapy Evaluate & Treat Comment: Physician Instructions: Evaluate and treat Consult to Physical Therapy Evaluate & Treat Comment: Physician Instructions: Evaluate and Treat 05/10/18 15:02 Consult to Respiratory Therapy Evaluate & Treat Comment: Physician Instructions: Evaluate and treat Discharge provider: Norma Perez DO Exam Vital Signs (past 8 hours): - 05/14/18 04:30 05/14/18 08:00 05/14/18 08:22 Temperature 97.0 F L 100 F H Pulse Rate 82 84 Respiratory Rate 20 18 Blood Pressure 137/63 120/43 L Pulse Oximetry 92 92 92 Oxygen Delivery Method Room Air Oxygen Flow Rate 0 Objective Labs Result Diagrams: 05/14/18 04:45 05/14/18 04:45 Labs: Laboratory Results - last 24 hr 05/14/18 05/14/18 04:45 04:45 Hgb 10.6 L Hct 31.5 L Sodium 133 L Potassium 4.1 Chloride 101 Carbon Dioxide 26 BUN 6 L Creatinine 0.60 Estimated GFR > 60.0 BUN/Creatinine Ratio 10.0 Glucose 93 Calcium 8.8 Discharge Plan Discharge Plan Discharge Problem: Acidosis, lactic, Fall, Closed wedge compression fracture of T7 vertebra, Closed rib fracture, Acute kidney injury Patient Disposition: SNF Transfer to: [facility] Transportation: Wheelchair Consult as needed: Dental, Hearing, Mental health, Podiatry and Vision I certify the postop hospital longterm care is medically necessary on a continuing basis for any conditions for which he/ she received care during this hospitalization.: Yes The receiving facility has agreed to accept transfer and provide medical treatment.: Yes Discharge Med Rec/Prescriptions Prescriptions: No Action CALCIUM CARBONATE (#CALTRATE 600) 600 mg PO BID Qty: 0 RF: 0 aspirin 81 MG tablet,delayed release (DR/EC) 81 mg PO QDAY Qty: 0 RF: 0 clopidogrel 75 MG tablet 75 mg PO DAILY Qty: 0 RF: 0 tramadol 50 mg tablet 50 mg PO QID PRN (Reason: pain) Qty: 30 RF: 1 atorvastatin 40 mg tablet 40 mg PO DAILY RF: 0 terbinafine HCl 250 mg tablet 250 mg PO Q3D RF: 0 acetaminophen 325 mg Tablet 650 mg PO Q6HR PRN (Reason: Pain, Mild (1-3)) Qty: 60 RF: 0 docusate sodium 100 mg Capsule 100 mg PO BID Qty: 60 RF: 0 Follow up/Referrals: Miguel Ruano MD [Primary Care Provider] - Discharge Data Primary Care Provider: Miguel Ruano Attending Provider: Miguel Ruano Admit Date/Time: 05/09/18 19:46
[2018-05-14] MEDS: CEFTRIAXONE 1 GM/50 ML FROZ.PIGGY IV (11:06)
--- NOTE | 2018-05-14 12:01 | PT.IPTN ---
Current Diagnoses Acute kidney failure, unspecified (05/09/18) Physical Therapy Treatment Note M2 PT-IP Current Condition Start: 05/10/18 12:59 Freq: NEEDED Status: Active Protocol: Document 05/10/18 11:00 HH (Rec: 05/10/18 13:19 [email or web address]) Physical Therapy Current Condition Current Condition Evaluation Date 05/10/18 Treatment Diagnosis GLF, spinal compression fx, rib fx, AKF, impaired gait and activity nanda. Onset Date 05/09/18 Weight Bearing Status Weight Bearing Status Weight Bear as Tolerated M3 PT-IP Subjective Start: 05/10/18 12:59 Freq: NEEDED Status: Active Protocol: Document 05/14/18 12:01 DLM (Rec: 05/14/18 12:20 DLM [id number]) Subjective Physical Therapy Visit Type Type Treatment Note Visit Start Time 11:30 Visit Stop Time 12:01 Total Visit Minutes 31 Notes new diagnosis of UTI Number of VENDING ROUTE DRIVER Visits 0 Physical Therapy Visit Comments Patient Comments she is glad they found the bladder infection Patient Goals return home Therapy Pain Assessment Pain When Pain Assessed During Mobility Pain Present Pain Present Pain Reported Location Lower Back Intensity 3 Scale Used Numeric (1 - 10) Description Aching Pain Management Techniques Re-positioning M4 PT-IP Mobility and Gait Start: 05/10/18 12:59 Freq: NEEDED Status: Active Protocol: Document 05/14/18 12:01 DLM (Rec: 05/14/18 12:20 DLM [id number]) PT-Bed Mobility Assessment Rolling Type of Rolling Roll to Left Level of Assist Independent Supine to Sit Supine to Sit Independent Scooting Scooting to Edge of Bed Independent PT-Transfer Assessment Sit to and From Stand Sit to and from Stand Standby Assistance Use of Upper Extremities Equipment Transfer Assistive Device Gait Belt Front Wheeled Walker Orthotic/Prosthetic Devices or Brace: No Transfers Transfer Destination Chair Transfer Ability Level of Assist Standby Assistance Use of Upper Extremities Comments Mobility Comments she feels like she needs the FWW today Gait Assessment Gait Gait Assistance Required: Standby Assistance Distance (Feet) 150 Assistive Devices Assistive Device Gait Belt Front Wheeled Walker Factors Limiting Gait Function Factors Limiting Gait Function Decreased Activity Tolerance Decreased Strength Respiratory Distress Comments Gait Comments pt up to recliner for lunch PT-Balance Assessment Sitting Balance and Reactions Static Sitting Balance Ability Normal Dynamic Sitting Balance Ability Normal Standing Balance and Reactions Static Standing Balance Ability Good Dynamic Standing Balance Ability Good Device Used fWW M5 PT-IP Objective Assessments Start: 05/10/18 12:59 Freq: NEEDED Status: Active Protocol: Document 05/10/18 11:00 HH (Rec: 05/10/18 13:19 [email or web address]) Orientation Orientation/Cognition Level of Alertness Alert Orientation Name Age Birthday Month Date Year Day of Week Place Situation Language Function Ability No Deficits Noted Safety Awareness Understands Safety Issues Memory Description No Deficits Noted Gross Range of Motion Upper Extremity ROM Assessment Within Functional Limits Lower Extremity ROM Assessment Within Functional Limits Strength Upper Extremity Strength Assessment Within Functional Limits Lower Extremity Strength Assessment Bilaterally Impaired Comments Strength Comments 3+/5 for B LEs. Coordination Assessment Gross Coordination Gross Coordination WNL Sensation Assessment Sensation Gross Sensation WNL Light Touch Intact Proprioception (Position) Intact Muscle Tone Muscle Tone WNL Yes M6 PT-IP Treatment Start: 05/10/18 12:59 Freq: NEEDED Status: Active Protocol: Document 05/14/18 12:01 DLM (Rec: 05/14/18 12:20 DLM [id number]) Physical Therapy Treatment Other Treatments Other Treatment Performed Standing LE ex with FWW for support: marching, hip ABD, hip ext, heel raises x 10 each bilaterally. She get short of breath and fatigued with exercises and needs seated rest breaks to recover. M7 PT-IP Assessment and Plan Start: 05/10/18 12:59 Freq: NEEDED Status: Active Protocol: Document 05/14/18 12:01 DLM (Rec: 05/14/18 12:20 DLM [id number]) PT Summary Assessment and Plan Summary Impairments Pain Strength Balance Transfers Gait Activity Tolerance Progress Towards Goals Progressing Toward Goals Assessment Summary Leigh continue to progress. She feels safer using the fWW for gait today. She reports her family has gotten her a FWW for home use. She continues to get short of breath with activity and needs seated rest breaks to recover . Continue to plan for discharge home with family assist and home health services. Goals Bed Mobility Goal Independent Transfer Goal Independent Gait Goal Independent Front Wheel Walker Gait Distance 150 Other Goals Up and down 3 steps with UE support on one side with SBA Days to Meet Goals 3 Frequency of Treatment Frequency Of Treatment Twice a Day Treatment Plan Physical Therapy Treatment Plan Bed Mobility Training Transfer Training Gait Training Therapeutic Exercise Balance Retraining Discharge Planning Hot or Cold Pack Neuromuscular Re-ed Other Recommendations and Next Treatment balance TR, gait without AD, Focus and strengthening. Recommendations To Nursing Amount of Assist Needed Standby Assistance Discharge Recommendations PT Discharge Recommendations Home with Assistance Home Health Equipment Needed for Home Before family got her a FWW for home Discharge
--- NOTE | 2018-05-14 12:05 | PM.PN.1 ---
Subjective Date Patient Seen: 05/14/18 Time Patient Seen: 11:29 Interval history: Patient is resting quietly in bed today. Had been up in the chair earlier and rib in back and become painful. She is relieved to hear that she has a urinary tract infection. Will begin treatment here soon. She has been up to urinate every 30 min. She also tells me that control has been difficult. However she has no burning. She does not have any shortness of breath however she does admit to mild discomfort when using her incentive spirometer. Exam Vital Signs (past 8 hours): - 05/14/18 04:30 05/14/18 08:00 05/14/18 08:22 Temperature 97.0 F L 100 F H Pulse Rate 82 84 Respiratory Rate 20 18 Blood Pressure 137/63 120/43 L Pulse Oximetry 92 92 92 05/14/18 11:06 Temperature 98.8 F Pulse Rate 89 Respiratory Rate 16 Blood Pressure 141/55 H Pulse Oximetry 95 Oxygen Delivery Method Room Air Oxygen Flow Rate 0 Narrative Exam Narrative: General: Well-developed, well-nourished, elderly female. HEENT-ecchymoses around left orbit Neck-supple Lungs-diminished breath sounds fine crackles at the bases Heart-regular rate and rhythm Abdomen-soft nontender nondistended Back-mild ecchymosis over the 7th rib on the right Extremities-no edema Objective Labs Result Diagrams: 05/14/18 04:45 05/14/18 04:45 Labs: Laboratory Results - last 24 hr 05/14/18 05/14/18 04:45 04:45 Hgb 10.6 L Hct 31.5 L Sodium 133 L Potassium 4.1 Chloride 101 Carbon Dioxide 26 BUN 6 L Creatinine 0.60 Estimated GFR > 60.0 BUN/Creatinine Ratio 10.0 Glucose 93 Calcium 8.8 Assessment & Plan Assessment & Plan narrative: 1. Hypokalemia-resolved 2. Acute kidney injury-resolved 3. Anemia-it is appearing more more like her anemia at least from her baseline at the end of last year, is due to acute blood loss anemia related to her fall and bleeding in her home, most likely from her head. Her family is quite adamant that the amount of blood contained in her bedroom was really quite a bit. I also suspect if that is not the case than her anemia predates her fall and may have contributed to her syncopal spell. Will follow along here in the hospital and outpatient. Depending on clinical course she may may not need evaluation for GI bleeding. She does need to continue on the anti-platelet therapy. 4. Fractured rib and vertebral body-actually is less symptomatic than I would have expected. ABle to sit up from supine without difficulty. Will certainly continue with physical therapy occupational therapy etc. 5. Syncope-again no clear etiology for this at this point. Patient did have some volume overload after transfusion, echocardiography unchanged from prior. Continues in sinus rhythm. 6. Urinary tract infection, pyleonephritis? Could her flank pain be due to pyelo and not just her rib fracture? She is symptomatic and febrile. Will treat with ceftriaxone. 7. Patient's other medical issues appear stable. Continue to follow expectantly. I do anticipate she will be able to return home with daughter and home health PT likely tomorrow. Code status: full code DVT prophylaxis: asa and plavix, given recent bleed and anemia not further anticoagulation, SCD's
--- NOTE | 2018-05-14 14:43 | CM.DPNOTE ---
According to Dr Perez, pt w/ UTI and requires medical management today, although likely okay to DC home tomorrow, Tuesday. Placed call to dtr Rayna P# [phone] to review DCP. Rayna explains her sister will be available this week to stay w/their mom and other siblings will be available to stop in/out to assist as needed. Rayna would appreciate a referral to HH on her mom's behalf and states RN/PT/OT/CARGO VESSEL STEWARDESS would be helpful. Discussed [facility] as the only HH option on [facility], Rayna is agreeable. Also encouraged Rayna to consider computer terminal operator care options for pt and her spouse like in home care giving and Rayna mentions they are looking into a lifeline alert system (?) Encouraged dtr to look into privately paid caregivers. Faxed HH order, completed F2F and latest prog note to [facility] alerting them that pt will likely be going home Tuesday. P: DC likely Tuesday, home w/family and [facility] to follow, unsure when they will be able to see pt in her home ? Linda Cisneros, G[employer] ENGINE [employer]
[2018-05-14] MEDS: ACETAMINOPHEN 325 MG TABLET 650 MG PO ×2 (14:56→20:58)
--- NOTE | 2018-05-14 15:30 | PT.IPTN ---
Current Diagnoses Acute kidney failure, unspecified (05/09/18) Physical Therapy Treatment Note M2 PT-IP Current Condition Start: 05/10/18 12:59 Freq: NEEDED Status: Active Protocol: Document 05/10/18 11:00 HH (Rec: 05/10/18 13:19 HH [email or web address]) Physical Therapy Current Condition Current Condition Evaluation Date 05/10/18 Treatment Diagnosis GLF, spinal compression fx, rib fx, AKF, impaired gait and activity nanda. Onset Date 05/09/18 Weight Bearing Status Weight Bearing Status Weight Bear as Tolerated M3 PT-IP Subjective Start: 05/10/18 12:59 Freq: NEEDED Status: Active Protocol: Document 05/14/18 15:29 LJ (Rec: 05/14/18 15:30 LJ [id number]) Subjective Physical Therapy Visit Type Type Patient Refusal Notes Pt family in room. States she has just requested pain medications and was very sore after earlier PT session. M4 PT-IP Mobility and Gait Start: 05/10/18 12:59 Freq: NEEDED Status: Active Protocol: Document 05/14/18 12:01 DLM (Rec: 05/14/18 12:20 DLM [id number]) PT-Bed Mobility Assessment Rolling Type of Rolling Roll to Left Level of Assist Independent Supine to Sit Supine to Sit Independent Scooting Scooting to Edge of Bed Independent PT-Transfer Assessment Sit to and From Stand Sit to and from Stand Standby Assistance Use of Upper Extremities Equipment Transfer Assistive Device Gait Belt Front Wheeled Walker Orthotic/Prosthetic Devices or Brace: No Transfers Transfer Destination Chair Transfer Ability Level of Assist Standby Assistance Use of Upper Extremities Comments Mobility Comments she feels like she needs the FWW today Gait Assessment Gait Gait Assistance Required: Standby Assistance Distance (Feet) 150 Assistive Devices Assistive Device Gait Belt Front Wheeled Walker Factors Limiting Gait Function Factors Limiting Gait Function Decreased Activity Tolerance Decreased Strength Respiratory Distress Comments Gait Comments pt up to recliner for lunch PT-Balance Assessment Sitting Balance and Reactions Static Sitting Balance Ability Normal Dynamic Sitting Balance Ability Normal Standing Balance and Reactions Static Standing Balance Ability Good Dynamic Standing Balance Ability Good Device Used fWW M5 PT-IP Objective Assessments Start: 05/10/18 12:59 Freq: NEEDED Status: Active Protocol: Document 05/10/18 11:00 HH (Rec: 05/10/18 13:19 HH [id number]) Orientation Orientation/Cognition Level of Alertness Alert Orientation Name Age Birthday Month Date Year Day of Week Place Situation Language Function Ability No Deficits Noted Safety Awareness Understands Safety Issues Memory Description No Deficits Noted Gross Range of Motion Upper Extremity ROM Assessment Within Functional Limits Lower Extremity ROM Assessment Within Functional Limits Strength Upper Extremity Strength Assessment Within Functional Limits Lower Extremity Strength Assessment Bilaterally Impaired Comments Strength Comments 3+/5 for B LEs. Coordination Assessment Gross Coordination Gross Coordination WNL Sensation Assessment Sensation Gross Sensation WNL Light Touch Intact Proprioception (Position) Intact Muscle Tone Muscle Tone WNL Yes M6 PT-IP Treatment Start: 05/10/18 12:59 Freq: NEEDED Status: Active Protocol: Document 05/14/18 12:01 DLM (Rec: 05/14/18 12:20 DLM [id number]) Physical Therapy Treatment Other Treatments Other Treatment Performed Standing LE ex with FWW for support: marching, hip ABD, hip ext, heel raises x 10 each bilaterally. She get short of breath and fatigued with exerices and needs seated rest breaks to recover. M7 PT-IP Assessment and Plan Start: 05/10/18 12:59 Freq: NEEDED Status: Active Protocol: Document 05/14/18 12:01 DLM (Rec: 05/14/18 12:20 DLM [id number]) PT Summary Assessment and Plan Summary Impairments Pain Strength Balance Transfers Gait Activity Tolerance Progress Towards Goals Progressing Toward Goals Assessment Summary Leigh continue to progress. She feels safer using the fWW for gait today. She reports her family has gotten her a FWW for home use. She continues to get short of breath with activity and needs seated rest breaks to recover . Continue to plan for discharge home with family assist and home health services. Goals Bed Mobility Goal Independent Transfer Goal Independent Gait Goal Independent Front Wheel Walker Gait Distance 150 Other Goals Up and down 3 steps with UE support on one side with SBA Days to Meet Goals 3 Frequency of Treatment Frequency Of Treatment Twice a Day Treatment Plan Physical Therapy Treatment Plan Bed Mobility Training Transfer Training Gait Training Therapeutic Exercise Balance Retraining Discharge Planning Hot or Cold Pack Neuromuscular Re-ed Other Recommendations and Next Treatment balance TR, gait without AD, Focus and strengthening. Recommendations To Nursing Amount of Assist Needed Standby Assistance Discharge Recommendations PT Discharge Recommendations Home with Assistance Home Health Equipment Needed for Home Before family got her a FWW for home Discharge
[2018-05-14] MEDS: SENNOSIDES 8.6 MG TABLET PO (21:25)
[2018-05-15] MEDS: hydrOXYzine pamoate 25 MG CAPSULE PO ×2 (00:12→06:00)
[2018-05-15 00:15] VITALS: BP 119/49; PULSE 83; RESP 16; TEMP 36.3; O2SAT 93
[2018-05-15 00:19] VITALS: O2SAT 93
[2018-05-15] MEDS: OXYCODONE IR 5 MG TABLET PO (04:16)
[2018-05-15 04:23] VITALS: BP 147/67; PULSE 78; RESP 20; TEMP 36.8; O2SAT 96
[2018-05-15 07:59] VITALS: BP 143/60; PULSE 77; RESP 16; TEMP 36.7; O2SAT 94
[2018-05-15 08:00] VITALS: O2SAT 94
--- NOTE | 2018-05-15 08:09 | PT.IPTN ---
Current Diagnoses Acute kidney failure, unspecified (05/09/18) Physical Therapy Treatment Note M2 PT-IP Current Condition Start: 05/10/18 12:59 Freq: NEEDED Status: Active Protocol: Document 05/10/18 11:00 HH (Rec: 05/10/18 13:19 [email or web address]) Physical Therapy Current Condition Current Condition Evaluation Date 05/10/18 Treatment Diagnosis GLF, spinal compression fx, rib fx, AKF, impaired gait and activity nanda. Onset Date 05/09/18 Weight Bearing Status Weight Bearing Status Weight Bear as Tolerated M3 PT-IP Subjective Start: 05/10/18 12:59 Freq: NEEDED Status: Active Protocol: Document 05/15/18 08:05 [facility] (Rec: 05/15/18 08:09 [facility] [id number]) Subjective Physical Therapy Visit Type Type Treatment Note Visit Start Time 07:40 Visit Stop Time 08:00 Total Visit Minutes 20 Physical Therapy Visit Comments Patient Comments Pt is hoping to go home today M4 PT-IP Mobility and Gait Start: 05/10/18 12:59 Freq: NEEDED Status: Active Protocol: Document 05/15/18 08:05 [facility] (Rec: 05/15/18 08:09 [facility] [id number]) PT-Bed Mobility Assessment Rolling Type of Rolling Roll to Left Level of Assist Independent Supine to Sit Supine to Sit Independent Scooting Scooting to Edge of Bed Independent PT-Transfer Assessment Sit to and From Stand Sit to and from Stand Standby Assistance Use of Upper Extremities Equipment Transfer Assistive Device Gait Belt Front Wheeled Walker Orthotic/Prosthetic Devices or Brace: No Comments Mobility Comments Pt stood and amb Gait Assessment Gait Gait Assistance Required: Standby Assistance Distance (Feet) 140 Assistive Devices Assistive Device Gait Belt Front Wheeled Walker Factors Limiting Gait Function Factors Limiting Gait Function Decreased Activity Tolerance Decreased Strength Respiratory Distress Comments Gait Comments Pt amb then sat in recliner for breakfast Stair Climbing Assessment Evaluation Level of Assist On Stairs Standby Assistance Technique/Endurance Stair Climbing Direction Ascend and Descend Number of Steps Climbed 2 Query Text: Comments Stair Climbing Comments Pt used step stood to practice steps with use of FWW as rail SBA. M5 PT-IP Objective Assessments Start: 05/10/18 12:59 Freq: NEEDED Status: Active Protocol: Document 05/10/18 11:00 HH (Rec: 05/10/18 13:19 [email or web address]) Orientation Orientation/Cognition Level of Alertness Alert Orientation Name Age Birthday Month Date Year Day of Week Place Situation Language Function Ability No Deficits Noted Safety Awareness Understands Safety Issues Memory Description No Deficits Noted Gross Range of Motion Upper Extremity ROM Assessment Within Functional Limits Lower Extremity ROM Assessment Within Functional Limits Strength Upper Extremity Strength Assessment Within Functional Limits Lower Extremity Strength Assessment Bilaterally Impaired Comments Strength Comments 3+/5 for B LEs. Coordination Assessment Gross Coordination Gross Coordination WNL Sensation Assessment Sensation Gross Sensation WNL Light Touch Intact Proprioception (Position) Intact Muscle Tone Muscle Tone WNL Yes M6 PT-IP Treatment Start: 05/10/18 12:59 Freq: NEEDED Status: Active Protocol: Document 05/14/18 12:01 DLM (Rec: 05/14/18 12:20 DL [id number]) Physical Therapy Treatment Other Treatments Other Treatment Performed Standing LE ex with FWW for support: marching, hip ABD, hip ext, heel raises x 10 each bilaterally. She get short of breath and fatigued with exerices and needs seated rest breaks to recover. M7 PT-IP Assessment and Plan Start: 05/10/18 12:59 Freq: NEEDED Status: Active Protocol: Document 05/15/18 08:05 [facility] (Rec: 05/15/18 08:09 [facility] [id number]) PT Summary Assessment and Plan Summary Progress Towards Goals Progressing Toward Goals Assessment Summary Leigh continues to progress with her mobility and is using th FWW safely. She is hopeful to go home with her dgt's help today and stay on the main level. She was able to go up and down 2 steps SBA with use of walker as her rail. She is safe to go home with family assistance. Frequency of Treatment Frequency Of Treatment Once a Day Treatment Plan Physical Therapy Treatment Plan Bed Mobility Training Transfer Training Gait Training Therapeutic Exercise Balance Retraining Discharge Planning Hot or Cold Pack Neuromuscular Re-ed Other Recommendations and Next Treatment balance TR, gait without AD, Focus and strengthening. Recommendations To Nursing Amount of Assist Needed Standby Assistance Discharge Recommendations PT Discharge Recommendations Home with Assistance Home Health Equipment Needed for Home Before family got her a FWW for home Discharge
--- NOTE | 2018-05-15 08:11 | PM.DS.1 ---
History of Present Illness Date Patient Seen: 05/15/18 Time Patient Seen: 08:11 Chief complaint: GLF last night, unknown downtime Narrative: Patient states that she fell in the middle of the night and could not get up. She says her room looked like a war zone and there was blood all over. She sustained a fall and a laceration. She has bruising to her eye and her face into multiple parts of her body. She says throughout the evening she could not get up. And then throughout the day could not get up as well. Finally she was able to get to a telephone and make a call to 911. Patient states she was unable to breathe during the call and was only able to give her address. Patient states that she has never called 911 before. Her pain is in her ribs radiating around her back. She says she fell as she is not sure how. She does not think she lost consciousness but she does not remember exactly the incidence around the fall. She remembers trying to get in to bed and unable to do so. She is on good historian. She is aware of the date know she is at [facility]. She lives at home with her . He is in a different part of the house in a different room. She was at least down greater than 12 hr. She says probably longer than that. Currently has complaints of mild facial pain. She has complaints of back pain shortness of breath. She has no leg pain hip pain abdominal pain. She has no nausea. She says she is thirsty and hungry. On arrival to the emergency room. Patient had blood on her face nose ear. She was quite cool in temperature. {from Dr. Oro's H&P} Discharge Providers Date of admission: 05/09/18 19:46 Discharge Date: 05/15/18 Primary care physician: Miguel Ruano MD Consults: 05/09/18 20:38 Consult to Inspector Eyeglass Routine Comment: 05/10/18 08:02 Consult to Occupational Therapy Evaluate & Treat Comment: Physician Instructions: Evaluate and treat Consult to Physical Therapy Evaluate & Treat Comment: Physician Instructions: Evaluate and Treat 05/10/18 15:02 Consult to Respiratory Therapy Evaluate & Treat Comment: Physician Instructions: Evaluate and treat 05/14/18 14:35 Consult to Home Health Routine Comment: Reason For Exam: Home Health RN/PT/OT/ESTHETICIAN AND MANAGER MEDICAL SPA Upon DC Discharge provider: Miguel Ruano MD Summary Discharge Diagnosis: 1. Acute blood loss anemia, resolved after transfusion 2. E coli UTI 3. Syncope, etiology not determined 4. Acute T7 compression fracture secondary to ground level fall 5. Posterior right 12th rib fracture secondary to fall 6. Hypertension 7. Peripheral vascular disease 8. Elevated lipase without evidence of pancreatitis either clinically or on imaging 9. Volume depletion/acute kidney injury-resolved 10. Acute volume overload after transfusion, resolved 11. Lactic acidosis-thought to be secondary to time patient was down, not clearly related to infection, rapidly resolved with above measures Hospital Course: Patient was admitted to the hospital after being evaluated in the emergency department. Her fractures were found as above. She was felt to be minimally volume depleted and received IV fluids. Her initial creatinine normalized. Her initial leukocytosis disappeared once her volume status was return to normal. She also appeared to be anemic once her volume status stabilized. There is no evidence of active bleeding and patient was transfused 2 units of packed red cells with no further evidence of decline in her overall blood count. Therefore her anemia was felt to be acute blood loss anemia related to bleeding occurred after her fall at home without evidence of any other source of bleeding Patient was up and around physical and occupational therapies. She complained of significant pain in her back primarily specially with breathing sitting and walking. However she was felt to be stable to return home with home health therapies to be initiated. Patient did have evidence of possible UTI upon admission but subsequent culture was negative. Patient then spiked low-grade fever and repeat urinalysis was still positive and patient did grow E coli. She was started on IV antibiotics and switched to oral antibiotics upon discharge. Overall patient slowly recovered and seem back to baseline mental status since certainly approaching baseline with activity limited by her pain and minimal generalized weakness Status at Discharge Cognitive/behavioral status at discharge: at baseline, oriented Functional status at discharge: uses cane/walker Overall status at discharge: patient is progressing back to baseline Time Spent with Patient Greater than 30 minutes Exam Vital Signs (past 8 hours): - 05/15/18 00:15 05/15/18 00:19 05/15/18 04:23 Temperature 97.4 F L 98.3 F Pulse Rate 83 78 Respiratory Rate 16 20 Blood Pressure 119/49 L 147/67 H Pulse Oximetry 93 93 96 05/15/18 07:59 Temperature 98.1 F Pulse Rate 77 Respiratory Rate 16 Blood Pressure 143/60 H Pulse Oximetry 94 Oxygen Delivery Method Room Air Oxygen Flow Rate 0 Narrative Exam Narrative: HEENT-unremarkable, normocephalic atraumatic Neck-no lymphadenopathy no bruits Lungs-clear anteriorly and posteriorly no wheezes no crackles good breath sounds Heart-regular rate and rhythm, no murmur, rub, or gallop. normal S1-S2 Abdomen-positive bowel tones, soft, nontender, nondistended, no hepatosplenomegaly, no masses palpable Neuro-normal to screening exam, gait not tested Extremities-no cyanosis clubbing or edema Objective Labs Result Diagrams: 05/14/18 04:45 05/14/18 04:45 Discharge Plan Discharge Plan Patient Disposition: Home Health Service Transfer to: Home Health, Other Discharge comment: [facility] resident, [facility] as available, HH PT/OT/ESTHETICIAN AND MANAGER MEDICAL SPA/tool chaser Med Rec/Prescriptions Prescriptions: New calcitonin (salmon) 200 unit/actuation [place],Non-Aerosol 200 unit Intranasal DAILY Qty: 3.7 RF: 0 ciprofloxacin HCl 500 mg tablet 500 mg PO BID Qty: 14 RF: 0 sennosides [senna] 8.6 mg Tablet 8.6 mg PO BEDTIME Qty: 30 RF: 0 oxycodone 5 mg Tablet 5 mg PO Q6HR PRN (Reason: Pain, Moderate (4-6)) Qty: 18 RF: 0 Continued CALCIUM CARBONATE (#CALTRATE 600) 600 mg PO BID Qty: 0 RF: 0 aspirin 81 MG tablet,delayed release (DR/EC) 81 mg PO QDAY Qty: 0 RF: 0 clopidogrel 75 MG tablet 75 mg PO DAILY Qty: 0 RF: 0 tramadol 50 mg tablet 50 mg PO QID PRN (Reason: pain) Qty: 30 RF: 1 atorvastatin 40 mg tablet 40 mg PO DAILY RF: 0 terbinafine HCl 250 mg tablet 250 mg PO Q3D RF: 0 acetaminophen 325 mg Tablet 650 mg PO Q6HR PRN (Reason: Pain, Mild (1-3)) Qty: 60 RF: 0 docusate sodium 100 mg Capsule 100 mg PO BID Qty: 60 RF: 0 Follow up/Referrals: Miguel Ruano MD [Primary Care Provider] - 2 Weeks Provider Discharge Instructions Diet: Diet as Tolerated and Low-sodium Activity: per HH PT/OT Visit Report/Discharge Packet Instructions: DI for Urinary Tract Infection (UTI), DI for Constipation, How to Prevent Falls, Oxycodone, Ciprofloxacin (By mouth) Discharge Data Primary Care Provider: Miguel Ruano Attending Provider: Miguel Ruano Admit Date/Time: 05/09/18 19:46
[2018-05-15] MEDS: CALCITONIN,SALMON, NASAL SPRAY 1 SPRAYS NASAL (08:24)
[2018-05-15] MEDS: PANTOPRAZOLE 40 MG VIAL IV (08:24)
[2018-05-15] MEDS: CLOPIDOGREL 75 MG TABLET PO (08:24)
[2018-05-15] MEDS: DOCUSATE 100 MG CAPSULE PO (08:24)
[2018-05-15] MEDS: ASPIRIN EC 81 MG TABLET PO (08:24)
[2018-05-15] MEDS: ATORVASTATIN 20 MG TABLET 40 MG PO (08:25)
[2018-05-15] MEDS: SODIUM CHLORIDE 0.9% FLUSH 10 ML IV (08:25)
[2018-05-15] MEDS: CEFTRIAXONE 1 GM/50 ML FROZ.PIGGY IV (08:26)
[2018-05-15] MEDS: ACETAMINOPHEN 325 MG TABLET 650 MG PO (08:32)
--- NOTE | 2018-05-15 09:26 | CM.DPC ---
DCP Discharge Home with HH Per MD, pt is medically stable to d/c home with spouse and family support and HH. JADE called [facility] and confirmed they received previously faxed MD orders and signed F2F referral and Alpha aware pt discharging home today and requesting H&P and d/c summary faxed to them to review. JADE faxed requested documents to [facility] and updated RN on HH confirmation of opening pt to services. Plan: Patient to d/c back home to [facility] today via family POV and [facility] to open pt to RN/PT/OT/BEET FLUMER. KELL Shaikh
--- NOTE | 2018-05-15 10:31 | PC.NURSE ---
Pt dc'd to home per MD order. Pt is AO x3 and walking with a steady gait using a FWW. Her back pain is being managed with oxycodone and tylenol. She tells me she administers her own medications at home. D/C packet is reviewed in detail with the pt. Reviewed medication regimen including purpose, dosing, time, route, side effects. Reviewed measures to prevent falls. Reviewed educational sheets for UTI and Constipation as well as ciprofloxacin and oxycodone. Provided hard Rx for oxycodone. Removed PIV with cath tip intact. Pt showered and dressed with minimal assistance from DAIRY LABORATORY TECHNICIAN. Daughter and arrived at bedside at 1020. Pt transferred with SBA to w/c and was escorted to POV in no acute distress for discharge at 1030. All belongings are gathered and sent with pt.
[2018-05-19 04:39] LABS: Vit B12 Binding Capacity unsat 1156 pg/mL (650-1340)
== END 2018-05-15 10:30 | disposition home health service (06) | DRG 683 ==
LOC: ED 19:45 → ICU 19:47
PROVIDERS: Family Medicine; Admitting Provider Family Medicine; Emergency Provider Emergency Medicine; PCP Internal Medicine; Visit Provider Internal Medicine
DX: N17.9 Acute kidney failure, unspecified (principal); S22.069A Unspecified fracture of T7-T8 vertebra, initial encounter for closed fracture; S22.31XA Fracture of one rib, right side, initial encounter for closed fracture; E87.2 Acidosis; N39.0 Urinary tract infection, site not specified; D62 Acute posthemorrhagic anemia; S09.90XA Unspecified injury of head, initial encounter; E87.79 Other fluid overload; M80.88XD Other osteoporosis with current pathological fracture, vertebra(e), subsequent encounter for fracture with routine healing; E87.6 Hypokalemia; B96.20 Unspecified Escherichia coli [E. coli] as the cause of diseases classified elsewhere; R55 Syncope and collapse; W18.30XA Fall on same level, unspecified, initial encounter; Y92.013 Bedroom of single-family (private) house as the place of occurrence of the external cause; I10 Essential (primary) hypertension; E78.5 Hyperlipidemia, unspecified; I73.9 Peripheral vascular disease, unspecified; Z87.891 Personal history of nicotine dependence; R00.0 Tachycardia, unspecified; Z23 Encounter for immunization
CPT/HCPCS: 36415; 36430; 51701; 70450; 71045; 71260; 72125; 74177; 80048; 80053; 80305; 80320; 81001; 82550; 82553; 82607; 82608; 82728; 83540; 83550; 83605; 83690; 84145; 84484; 85014; 85018; 85025; 85610; 85730; 86850; 86900; 86901; 87077; 87086; 87186; 87797; 90471; 93005; 93306; 94760; 96361; 96374; 97110; 97116; 97162; 97166; 97530; 97535; 99223; 99233; 99238; 99284; 99291; P9016; 90715; C9113; G0390; J1940; J2270; J2405; J3010; J3480; J7050; Q9967

== ENCOUNTER → 2018-05-30 11:37 | Outpatient (CLI) | payer MEDICARE, OTHER, SELFPAY ==
[2018-05-09 20:15] VITALS: BMI 20.6
[2018-05-30 12:15] LABS: Hematocrit 35.1 % (36-46); Hemoglobin 11.8 g/dL (12.0-16.0)
[2018-05-30 12:20] LABS: Prothrombin Time 11.9 SECONDS (10.1-12.7)
[2018-05-30 12:23] LABS: PTT Partial Thromboplastin Tim 30 SECONDS (26.4-36.2)
[2018-05-30 12:28] LABS: Blood Urea Nitrogen 9 mg/dL (7-17); Calcium 9.7 mg/dL (8.4-10.2); Carbon Dioxide 26 mmol/L (22-32); Chloride 101 mmol/L (98-107); Estimated Glomerular Filt Rate > 60.0 mL/min (>60); Glucose 101 mg/dL (80-110); HEMOLYSIS < 15 (0-50); Sodium 137 mmol/L (137-145)
== END ==
PROVIDERS: PCP Internal Medicine; Visit Provider Internal Medicine
DX: Z86.718 Personal history of other venous thrombosis and embolism (principal); D64.9 Anemia, unspecified; I73.9 Peripheral vascular disease, unspecified; N17.9 Acute kidney failure, unspecified
CPT/HCPCS: 36415; 80048; 81241; 85014; 85018; 85610; 85730

== ENCOUNTER → 2018-10-06 09:49 | Outpatient (CLI) | payer MEDICARE, OTHER, SELFPAY ==
[2018-10-05 13:41] VITALS: BMI 20.6
[2018-10-06 10:47] LABS: Add Manual Diff / Slide Review NO; Basophils Absolute Auto 0 /uL (0-100); Basophils Percent Auto 0.6 % (0-2); Eosinophils Absolute Auto 200 /uL (0-450); Eosinophils Percent Auto 3.8 % (2-4); Hemoglobin 13.8 g/dL (12.0-16.0); Lymphocytes Absolute Auto 1600 /uL (1100-4500); Lymphocytes Percent Auto 40.2 % (25-40); Mean Corpuscular HGB Conc 33.8 % (30-36); Mean Corpuscular Hemoglobin 32.9 PG (26-34); Mean Corpuscular Volume 97.3 fL (80-100); Monocytes Absolute Auto 300 /uL (0-900); Monocytes Percent Auto 8.7 % (3-14); Neutrophils Absolute Auto 1800 /uL (1500-7000); Neutrophils Percent Auto 46.7 % (50-75); Platelet Count 255 X10^3/uL (150-400); Red Blood Cell Count 4.21 X10^6/uL (4.0-5.2); Red Cell Distribution Width 14.1 % (11.6-14.8); White Blood Cell Count 3.9 X10^3/uL (4.5-11.0)
[2018-10-06 11:03] LABS: Prothrombin Time 11.3 SECONDS (10.1-12.7)
[2018-10-06 11:06] LABS: PTT Partial Thromboplastin Tim 30 SECONDS (26.4-36.2)
[2018-10-06 11:13] LABS: Alanine Aminotransferase 35 IU/L (9-52); Albumin Globulin Ratio 1.3 (1.0-2.8); Alkaline Phosphatase 77 U/L (38-126); Aspartate Aminotransferase 31 IU/L (14-36); BUN Creatinine Ratio 21.7 (6-22); Bilirubin Total 0.8 mg/dL (0.2-1.3); Blood Urea Nitrogen 13 mg/dL (7-17); Calcium 9.4 mg/dL (8.4-10.2); Carbon Dioxide 27 mmol/L (22-32); Chloride 102 mmol/L (98-107); Cholesterol 127 mg/dL (140-199); Estimated Glomerular Filt Rate > 60.0 mL/min (>60); Glucose 82 mg/dL (80-110); HDL Cholesterol 96 mg/dL (40-60); HEMOLYSIS < 15 (0-50); Potassium 4.5 mmol/L (3.4-5.1); Sodium 140 mmol/L (137-145); Triglycerides 169 mg/dL (35-150)
[2018-10-06 11:19] LABS: LDL Cholesterol Calculated < 100 mg/dL (<100)
== END ==
PROVIDERS: PCP Internal Medicine; Visit Provider Orthopaedic Surgery Orthopaedic Surgery of the Spine
DX: Z01.818 Encounter for other preprocedural examination (principal); Z51.81 Encounter for therapeutic drug level monitoring; E78.5 Hyperlipidemia, unspecified; I10 Essential (primary) hypertension; I73.9 Peripheral vascular disease, unspecified
CPT/HCPCS: 36415; 80053; 80061; 85025; 85610; 85730

== ENCOUNTER 2018-11-14 13:30 | Emergency (ER) | payer MEDICARE, OTHER, SELFPAY ==
[2018-10-05 13:41] VITALS: BMI 20.6
[2018-11-14 13:39] VITALS: BP 181/81; PULSE 96; RESP 16; TEMP 36.4; O2SAT 96; BMI 21.1
--- NOTE | 2018-11-14 13:42 | DI.RAD.S_ITS ---
PROCEDURE: XR RIBS RT MIN 3V W CXR 1V INDICATIONS: fall, rib pain TECHNIQUE: 2 views of the right ribs were acquired, along with a single view chest. COMPARISON: None. FINDINGS: Surgical changes and devices: None. Bones and chest wall: No fractures or dislocations. No suspicious bony lesions. Overlying soft tissues appear unremarkable. Scattered high density calcified granulomas. Lungs and pleura: No pleural effusions or pneumothorax. Scattered subsegmental atelectasis and/or scarring. No focal consolidation Mediastinum: Mediastinal contours appear normal. Heart size is normal. IMPRESSION: No radiographically visible displaced or definite rib fracture Dictated by: Mason London M.D. on 11/14/2018 at 14:23 Approved by: Mason London M.D. on 11/14/2018 at 14:27
[2018-11-14 14:09] VITALS: BP 152/79
--- NOTE | 2018-11-14 14:44 | ED_ITS ---
HPI - Fall <THOMAS Whitehead - Last Filed: 11/15/18 00:08> General Chief Complaint: Fall Stated Complaint: fell Tuesday and hurt right side Time Seen by Provider: 11/14/18 14:22 Source: patient Mode of arrival: Wheelchair Limitations: no limitations History of Present Illness HPI Narrative: This is a 77-year-old female, prior smoker, who presents with significant other with chief complain of right side rib and chest pain after she sustained a fall last night when she was went to the bathroom and he had unaffected side on a bed frame after her left leg gave out. Patient reports has been having trouble with back pain and at times her leg gives out. She denies hitting her head or injuring other areas. Reports pain is worse with palpation and cough, deep breathing. Patient denies fever/chills, nausea or vomiting. She denies productive coughing. Related Data Home Medications Medication Instructions Recorded Confirmed CALCIUM CARBONATE (#CALTRATE 600) 600 mg PO BID #0 11/16/10 10/06/18 aspirin 81 mg PO QDAY #0 02/13/16 10/06/18 terbinafine HCl 250 mg PO Q3D 11/29/17 10/06/18 atorvastatin 40 mg PO DAILY 05/09/18 10/06/18 multivitamin 1 tab PO DAILY 05/30/18 10/06/18 Previous Rx's Medication Instructions Recorded acetaminophen 650 mg PO Q6HR PRN #60 tab 12/03/17 lidocaine 1 patch TOP DAILY #15 each 11/14/18 Allergies Allergy/AdvReac Type Severity Reaction Status Date / Time No Known Drug Allergies Allergy Verified 10/06/18 08:49 Review of Systems <THOMAS Whitehead - Last Filed: 11/15/18 00:08> Review of Systems Narrative: General: Denies fever, chills, fatigue, malaise, sweats. HEENT: Denies sinus pain, ear pain, sore throat, difficulty swallowing, dizziness. Respiratory: Denies dyspnea, cough, wheezing, hemoptysis, sputum. Cardiovascular: Reports right rib pain which worse with movements, coughing, palpation. Denies chest pain, palpitations, orthopnea, edema. Gastrointestinal: Denies nausea, vomiting, abdominal pain, diarrhea, constipation, melena. : Denies dysuria, frequency, incontinence, hematuria, urinary retention. Musculoskeletal: Denies weakness, joint pain or bony pain. Skin: Denies rash, skin lesions, or other. Neurologic: Denies weakness, headache, numbness, change in speech, confusion, seizures, incoordination. Psychiatric: No concerning psychosocial issues. 12-point review of systems is negative except for those stated above. Exam <Willem MICKIE AyoubP - Last Filed: 11/15/18 00:08> Narrative Exam Narrative: GEN: Alert, oriented x 3, well appearing and nourished, and in no acute distress. Head: Normal cephalic, atraumatic. No scalp or temporal tenderness, palpable mass or rash. EYES: Pupils are equal, round, and reactive to light and accommodation. Extraocular muscles are intact bilaterally. There is no subconjunctival hemorrhage, exudate and sclera non-icteric. ENT: Bilateral auditory canals and tympanic membranes clear. Hearing grossly intact. Nose without bleeding, purulent discharge or deviation. Facial sinuses nontender to palpate. Mucous membrane moist, no mucosal lesion. Throat without erythema, tonsillar hypertrophy or exudate. Uvula in midline, airway patent. Neck: Trachea in midline. No JVD, non-tender without lymphadenopathy. No masses or thyroid megaly. Supple, non-tender and no meningeal signs. CARDIAC: Normal regular rate and rhythm without murmurs, gallops, or rubs. No chest wall tenderness. No peripheral edema, cyanosis or pallor. Capillary refill is less than 2 seconds. RESPIRATORY: Lungs are cleat to auscultate bilaterally. No cough, wheezes, rales, or rhonchi. No stridor, respiratory distress, increase work of breathing, or accessary muscle used. ABD: Abdomen soft, nontender and non-distended. No guarding or rebound tenderness to palpate. Bowel sounds are normal in all 4 quadrants. There is no palpable masses or organomegaly. EXT: Full painless ROM of all extremities with no loss of sensation, strength, effusion or edema. SKIN: Warm, dry, normal color for patient. No erythema, lesions or rash over visible areas. BACK: Focal area of Tenderness to palpate right lower lateral rib without erythema, ecchymosis, edema. Nontender without deformity or crepitance on back. No flank tenderness. NEUROLOGICAL: Alert and oriented to place, time and person. Sensation and motor function intact bilaterally. No facial droops, dysphasia. PSYCHIATRIC: Good judgement and reason, without hallucinations, abnormal affect or abnormal behaviors during the examination. 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) Diverticulosis of large intestine without hemorrhage (Chronic 04/22/15) Former smoker (Inactive 04/20/16) Hyperlipidemia (Chronic 04/20/16) Hypertension (Chronic 06/06/17) Lumbar spondylosis (Chronic) Osteoporosis (Chronic 04/22/15) 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: None travel history: recent leisure activities: sports and other Smoking Status: Former smoker Tobacco: How many years used: 40 Smokeless tobacco user: other quit status: quit date established second hand exposure: No alcohol intake: current substance use type: does not use Course <THOMAS Whitehead - Last Filed: 11/15/18 00:08> Orders Ordered: Discontinued Medications Acetaminophen (Tylenol) 650 mg PO NOW ONE Stop: 11/14/18 14:47 Last Admin: 11/14/18 15:01 Dose: 650 mg Documented by: RUTH Ibuprofen (Advil) 400 mg PO NOW ONE Stop: 11/14/18 14:48 Last Admin: 11/14/18 15:01 Dose: 400 mg Documented by: RUTH Lidocaine (Lidoderm) 1 each TOP NOW ONE Stop: 11/14/18 15:02 Last Admin: 11/14/18 15:15 Dose: 1 each Documented by: RUTH Vital Signs Vital signs: Vital Signs - 8 hr 11/14/18 13:39 11/14/18 14:09 Temperature 97.6 F Pulse Rate 96 H Respiratory Rate 16 Blood Pressure 181/81 H Blood Pressure [Right Arm] 152/79 H Pulse Oximetry 96 <Luh Mejia DO - Last Filed: 11/15/18 07:08> Orders Ordered: Discontinued Medications Acetaminophen (Tylenol) 650 mg PO NOW ONE Stop: 11/14/18 14:47 Last Admin: 11/14/18 15:01 Dose: 650 mg Documented by: RUTH Ibuprofen (Advil) 400 mg PO NOW ONE Stop: 11/14/18 14:48 Last Admin: 11/14/18 15:01 Dose: 400 mg Documented by: RUTH Lidocaine (Lidoderm) 1 each TOP NOW ONE Stop: 11/14/18 15:02 Last Admin: 11/14/18 15:15 Dose: 1 each Documented by: RUTH Vital Signs Vital signs: Vital Signs - 8 hr 11/14/18 13:39 11/14/18 14:09 Temperature 97.6 F Pulse Rate 96 H Respiratory Rate 16 Blood Pressure 181/81 H Blood Pressure [Right Arm] 152/79 H Pulse Oximetry 96 MDM - Fall <Willem Rene-JeffersonTHOMAS castillo - Last Filed: 11/15/18 00:08> Differential Diagnosis Differential diagnosis: Likely other (Rib fracture, rib contusion) Medical Records Attestation: I reviewed the patient's medical records. Imaging Data XR-Ribs: Radiologist's impression: [place] [address] XRay Report Signed Patient: Taniya Johnson LMR#: [id number] : 9Acct:[id number] Age/Sex: 77 / FDate of Service: 11/14/18 Loc: ED Accession Number: [id number] Procedure: XR ribs RT min 3V w CXR1V Ordering Provider: Luh Mejia D.O. PROCEDURE: XR RIBS RT MIN 3V W CXR 1V INDICATIONS: fall, rib pain TECHNIQUE: 2 views of the right ribs were acquired, along with a single view chest. COMPARISON: None. FINDINGS: Surgical changes and devices: None. Bones and chest wall: No fractures or dislocations. No suspicious bony lesions. Overlying soft tissues appear unremarkable. Scattered high density calcified granulomas. Lungs and pleura: No pleural effusions or pneumothorax. Scattered subsegmental atelectasis and/or scarring. No focal consolidation Mediastinum: Mediastinal contours appear normal. Heart size is normal. IMPRESSION: No radiographically visible displaced or definite rib fracture Dictated by: Mason London M.D. on 11/14/2018 at 14:23 Approved by: Mason London M.D. on 11/14/2018 at 14:[address] [facility] Narrative Medical decision making narrative: This is a 77-year-old female who injured her right ribs after falling on a bed frame last night while going to the bathroom. She reports since she has bad back her legs at times gives out but usually she holds on to furnitures to prevent falls. She denies other injuries including head from this fall. X-ray for rib was obtained with no acute findings such as fracture, pneumothorax. Patient was medicated with Tylenol, Motrin, lidocaine patch for pain in her right ribs with prescriptions of lidocaine patch. Patient advised for do deep breathing exercise every hour while she is awake to prevent pneumonia after splinting the painful area. Discussed return precautions with patient and spouse and advised to follow up with primary care physician in 2-3 days. Patient agrees with treatment plan and verbalized understanding. Discharge Plan Departure Patient Disposition: Home Clinical Impression: Contusion of rib on right side Qualifiers: Encounter type: initial encounter Qualified Code(s): S20.211A - Contusion of right front wall of thorax, initial encounter Discharge Date/Time: 11/14/18 15:31 Instructions: DI for Rib Contusion Activity Restrictions/Additional Instructions: You have been diagnosed with [contusion to you're right ribs. Today's x-ray test does not show any acute findings such as fracture]. What to do: *Take your medications as directed. Please take [id number] Tylenol and or Motrin as needed for discomfort. Please take Motrin with food. Max dose for Tylenol is 4000 mg/24 hr period and Motrin 600 mg 3 times a day. Lidocaine patch has been transmitted to [facility] pharmacy. This stays on for 12 hours and off for 12 hours. *Follow up with your primary care provider in 2-3 days, call for an appointment. Let them know you were seen in the ED and that we asked you to be seen in follow up. *Return to ED if you have any new, worsening, or concerning symptoms, such as [c hest pain, breathing difficulty, productive cough, fever, unable to tolerate fluids, or any acute concerns]. Prescriptions: New lidocaine 5 % adhesive patch,medicated 1 patch TOP DAILY Qty: 15 RF: 0 No Action CALCIUM CARBONATE (#CALTRATE 600) 600 mg PO BID Qty: 0 RF: 0 aspirin 81 MG tablet,delayed release (DR/EC) 81 mg PO QDAY Qty: 0 RF: 0 multivitamin tablet 1 tab PO DAILY RF: 0 atorvastatin 40 mg tablet 40 mg PO DAILY RF: 0 terbinafine HCl 250 mg tablet 250 mg PO Q3D RF: 0 acetaminophen 325 mg Tablet 650 mg PO Q6HR PRN (Reason: Pain, Mild (1-3)) Qty: 60 RF: 0 Referrals: Miguel Ruano MD [Primary Care Provider] -
[2018-11-14] MEDS: ACETAMINOPHEN 325 MG TABLET 650 MG PO (15:01)
[2018-11-14] MEDS: IBUPROFEN 400 MG TABLET PO (15:01)
[2018-11-14] MEDS: LIDOCAINE PATCH 1 EACH ADH..PATCH TOP (15:15)
[2018-11-14 15:21] VITALS: BP 161/70; PULSE 70; RESP 18; O2SAT 96
== END 2018-11-14 15:31 | disposition home or self-care (01) ==
PROVIDERS: Emergency Provider Nurse Practitioner Family; PCP Internal Medicine
DX: S20.211A Contusion of right front wall of thorax, initial encounter (principal); W19.XXXA Unspecified fall, initial encounter
CPT/HCPCS: 71101; 99283

== ENCOUNTER 2018-11-23 08:31 | Inpatient (IN) | payer MEDICARE, OTHER, SELFPAY ==
[2018-10-05 13:41] VITALS: BMI 20.6
[2018-11-16 07:31] VITALS: BMI 21.0
[2018-11-23] VITALS (19 sets, daily range): BP systolic 91–131; BP diastolic 52–72; PULSE 70–109; RESP 8–18; TEMP 35.6–37.2; O2SAT 90–97; BMI 21.0
--- NOTE | 2018-11-23 | DI.RAD.S_ITS ---
PROCEDURE: XR LUMBAR SPINE 2-3V INDICATIONS: L5-S1 TLIF TECHNIQUE: 2 views of the lumbar spine were acquired. COMPARISON: [facility], CR, XR LUMBAR SPINE 2 OR 3 VIEWS, 10/05/2018, 11:01. [facility], CR, XR LUMBAR SPINE 2-3V, 12/02/2017, 10:47. FINDINGS: Bones: Expected postsurgical change for L5-S1 TILF. Previous L4-L5 TLIF postsurgical changes are stable. No vertebral body compression fractures. No suspicious bony lesions. Soft tissues: Overlying bowel gas pattern is normal. No suspicious soft tissue calcifications. IMPRESSION: Expected postsurgical change for L5-S1 TLIF. Dictated by: Elyse Farfan MD, PhD on 11/23/2018 at 11:53 Approved by: Elyse Farfan MD, PhD on 11/23/2018 at 11:57
[2018-11-23] MEDS: LACTATED RINGERS 1,000 ML 42 ML IV (09:33)
[2018-11-23] MEDS: ACETAMINOPHEN 325 MG TABLET 975 MG PO (09:55)
--- NOTE | 2018-11-23 10:11 | PM.PREOP ---
Pre-operative Note Interval Note History & Physical reviewed/Exam performed by Physician: Yes Changes to H&P: No
[2018-11-23] MEDS: CEFAZOLIN 2 GM/100 ML FROZ.PIGGY IV (10:21)
[2018-11-23] MEDS: BUPIVACAINE 0.25% W/ EPI 30 ML VIAL INJ (11:10)
[2018-11-23] MEDS: BUPIVACAINE LIPOSOME 266 MG/20 ML VIAL INJ (11:10)
--- NOTE | 2018-11-23 12:57 | P.OP_ITS ---
Operative Date/Time/Diagnoses Date of procedure: 11/23/18 Time of procedure: 10:57 Pre-op diagnosis: 1. Hx of L4-5 fusion 2. L4-5, L5-S1 spinal stenosis 3. Spondylosis with radiculopathy Post-op diagnosis: same Procedure & Clinicians Procedure: 1. L5-S1 posterolateral and posterior interbody fusion 2. L5-S1 posterior interbody cage placement 3. L4-5 posterior non-segmental instrumentation removal 4. L4-5 revision laminectomy with exploration of fusion 5. L4-5, L5-S1 posterior segmental instrumentation with pedicle screw placement 6. L4-5 posterolatearl fusion 7. Utilization of microsurgical technique and operating microscope Same procedure as scheduled: Yes Indications: Patient has been having chronic back pain and worsening lumbar radiculopathy. Patient had prior L4-5 fusion 1 year ago with progressively worsening pain at the adjacent level with worsening degenerative findings causing both mechanical back pain and radiculopathy. Patient failed multiple conservative management with worsening pain weakness and numbness in her lower extremity. Patient has been having difficulty performing activity of daily living. After discussing risks benefits of treatment options, patient elected proceed with surgery. Surgeon: Sina Jacques Gas Operations Superintendent: Triny Hernández Click Yes if Unassisted: No Anesthesia Type: General Operative Notes Closure Type: primary Specimen(s): none sent Prosthetic devices, grafts, tissues, transplants, or devices: Globus revolve, Rise cage Applied: catheter Estimated Blood Loss (mL): 75 Blood products transfused: none Procedure in detail: Patient was seen in the preoperative area. Risks and benefits of the surgery was discussed with the patient. Informed consent was obtained from the patient and placed in the chart. Surgical site was marked. Patient was taken to the operative room. General anesthesia was administered. Prophylactic antibiotic was given to the patient less than 30 min before the incision was made. Patient was placed into a prone position on the Arcadio table. Patient's back was then prepped and draped in the sterile fashion. Time- out was performed at this time. Using patient's previous scar incision was made over the L4-5 interval on the left side. Fascia was incised in line with skin incision. Patient's previously placed hardware over the L4-5 level was identified by dissecting down to the level the hardware using a Bovie and a Perez. The locking caps which was removed using globus screwdriver. The locking aiyana was then removed from the tulips of the pedicle screws using a Carol. The pedicle screws were then removed using the screwdriver. The screws were found to have good purchase. The Globus and MARS retractors was then placed into the wound and docked onto the L5 lamina using C-arm guidance. Using microsurgical technique and operating microscope a laminectomy facetectomy was performed by removing the L5 lamina and the L5-S1 facet. The disc space at L5-S1 level was identified next. And a total diskectomy was performed at L5-S1 level. The endplates were decorticated using a rasp and shaver. The total diskectomy and decortication was performed at L5-S1 level in order to to accomplish a L5-S1 fusion. Patient was found to have severe central and foraminal stenosis L5-S1 level which was fully decompressed after the laminectomy and facetectomy was completed. The local bone from the laminectomy and facetectomy was saved for local bone grafting. After the total diskectomy and decortication was completed, Bio4 bone graft material was combined with local bone that was harvested earlier. At this time, a separate skin is incision was made over the iliac crest. A Jamshidi needle was inserted into the iliac crest through a separate skin incision. 5 cc of bone marrow aspiration was obtained through the separate skin incision using a Jamshidi needle from the iliac crest. The bone marrow aspiration was combined with local bone and the Bio4 bone grafting material. The bone grafting material was placed into the L5-S1 interbody space along with a expandable cage. The cage was expanded to its maximum height using the torque limiting screwdriver. At this time a mirror image incision was made on the right side. The fascia was incised in line with the skin incision. Patient's previously placed hardware on the left side was then removed in the same fashion as it was on the right side. The hardware was also found to have good purchase. The fusion mass on the right side was exposed by performing a right-sided hemilaminectomy at L4-5 level. The hemilaminectomy was performed using the Kerrison rongeur to undercut the lamina as well removing additional epidural scar tissue for purpose of decompressing the epidural space. The fusion mass was explored and was found have visible motion indicating pseudoarthrosis. Globus MARS retractor was inserted and docked onto the L4-5 L5-S1 posterolateral gutter. Using the power drill, posterior-lateral decortication was performed at L4-5 L5-S1 level until bleeding cortical bone was identified. The remaining bone grafting material was placed into the L4-5 L5-S1 posterior lateral gutter he order to accomplish posterolateral fusion at the L4-5 L5-S1 level. Using the double C-arm technique, pedicle screws were placed into the L4, L5 and S1 pedicles bilaterally. This was done by placing the Jamshidi needle into the pedicles, then placing the guidewires over the Jamshidi needle, and finally placing the cannulated screws over the guidewires bilaterally. After the pedicle screws were placed, 2 titanium rods was locked into the heads of the pedicle screws using locking caps and torque limiting screwdriver. After all the hardware was placed, and confirmed with AP and lateral C-arm imaging, the wound was then irrigated with sterile normal saline and packed with Ray-Nohemy gauze for 3 min to accomplish hemostasis. After the gauze was removed the deep fascia was closed with #1 Vicryl suture. The subcutaneous layer was closed with 2-0 Vicryl. The skin was closed with skin therese. Patient tolerated the procedure well. There were no complications. Complications: none Post-operative Condition: stable Disposition: PACU Plan for aftercare: Admit to inpatient hospital
--- NOTE | 2018-11-23 13:37 | SUR.PHASEI ---
assumed care of pt at this time. pt laying in bed with eyes open, alert and orientated. pt responding to RN appropiately when spoken to. Drsg observed to be c/d/i. pt appears comfortable at this time and denies any nausea.
[2018-11-23] MEDS: HYDROMORPHONE 2 MG INJ 0.5 MG IV ×3 (13:43→13:57)
--- NOTE | 2018-11-23 14:05 | SUR.PHASEI ---
Spoke with Dr. Edmonds regarding observing bilateral eyes twitching intermittently. Per Dr. Edmonds ok to be transferred to floor and no new orders received. Pt reports this is not new. Bedside report given to AMBIKA Blount. Transferred care of pt to AMBIKA Blount at this time.
--- NOTE | 2018-11-23 14:16 | SUR.PHASEI ---
Per patient, it is normal for her to have a twitch bilaterally to eyes.
--- NOTE | 2018-11-23 14:49 | PC.ADMIT ---
[email or web address] Admission Note:Pt arrived via stretcher to room 208, A/o x3, able to make needs known. Family at bedside. Dressing to back CDI. SCDs in place to feet.Reports pain is tolerable at this time. The patient,Taniya Johnson,77 y/o, was given written information regarding hospital policies, unit procedures and contact persons. Patient's smoking status: Former smoker. Vital Signs - 8 hr 11/23/18 09:12 11/23/18 13:07 11/23/18 13:09 Temperature 97.0 F L 99.0 F Pulse Rate 70 107 H 109 H Respiratory Rate 15 11 L 13 Blood Pressure 131/72 111/59 L 104/56 L Pulse Oximetry 95 90 L 11/23/18 13:14 11/23/18 13:19 11/23/18 13:24 Temperature Pulse Rate 107 H 107 H 104 H Respiratory Rate 10 L 10 L 12 Blood Pressure 96/52 L 104/60 91/58 L Pulse Oximetry 92 92 93 11/23/18 13:34 11/23/18 13:44 11/23/18 13:49 Temperature Pulse Rate 105 H 102 H 102 H Respiratory Rate 14 11 L 10 L Blood Pressure 111/60 99/65 101/60 Pulse Oximetry 92 94 93 11/23/18 13:59 11/23/18 14:19 11/23/18 14:40 Temperature 97.0 F L 99.0 F Pulse Rate 99 H 99 H 100 H Respiratory Rate 10 L 8 L 14 Blood Pressure 103/59 L 97/57 L 103/65 Pulse Oximetry 94 93 94
[2018-11-23] MEDS: SODIUM CHLORIDE 0.9% 1,000 ML 100 ML IV (17:04)
[2018-11-23] MEDS: CEFAZOLIN 1 GM/50 ML FROZ.PIGGY IV (18:09)
[2018-11-23] MEDS: OXYCODONE IR 5 MG TABLET 10 MG PO (20:47)
[2018-11-23] MEDS: SENNOSIDES 8.6 MG TABLET 17.2 MG PO (20:48)
[2018-11-23] MEDS: DOCUSATE 100 MG CAPSULE PO (20:48)
[2018-11-23] MEDS: ACETAMINOPHEN 325 MG TABLET 650 MG PO (20:48)
[2018-11-24] VITALS (7 sets, daily range): BP systolic 100–119; BP diastolic 50–65; PULSE 70–83; RESP 15–20; TEMP 36.3–36.9; O2SAT 91–96
[2018-11-24] MEDS: OXYCODONE IR 5 MG TABLET 10 MG PO ×5 (01:25→23:53)
[2018-11-24] MEDS: CEFAZOLIN 1 GM/50 ML FROZ.PIGGY IV (03:06)
[2018-11-24 07:01] LABS: Hematocrit 30.2 % (36-46); Hemoglobin 10.4 g/dL (12.0-16.0)
--- NOTE | 2018-11-24 07:56 | P.PN_ITS ---
Subjective Subjective Date Patient Seen: 11/24/18 Time Patient Seen: 07:56 Interval history: POD #1 s/p L4-S1 TLIF with Dr. Jacques. Her pain is well controlled with tylenol and oxycodone. Patient has not been up and ambulating with PT. She has a clayton catheter in place. Exam Vital Signs (past 8 hours): - 11/24/18 00:35 11/24/18 04:45 Temperature 97.8 F 97.7 F Pulse Rate 83 70 Respiratory Rate 16 16 Blood Pressure 113/65 107/59 L Pulse Oximetry 96 91 Fraction of Inspired Oxygen 28 Oxygen Delivery Method Nasal Cannula Oxygen Flow Rate 0 Narrative Exam Narrative: Patient sitting up in bed in NAD. She is alert and oriented X3. Dressing on back is CDI. Calves are soft, compressible, and nontender bilate rally. Pulses are symmetrical. SILT throughout BUEs. Objective Labs Result Diagrams: 11/24/18 06:27 Labs: Laboratory Results - last 24 hr 11/24/18 06:27 Hgb 10.4 L Hct 30.2 L Assessment & Plan Post-op Postoperative Procedures: Procedures Operation Date: 11/23/18 11:15 Actual Procedures Side Surgeon p L4-5 lumbar HWR, exploration of fusion, repeat laminectomy, reinsertion of hardware, L4-S1 PSF w/ instrumentation Sina Jacques MD Patient will mobilize with physical therapy today. No excessive bending, lifting, or twisting. Remove Clayton catheter once more mobile. Continue current pain control. The patient is mobilizing safely, voiding, and pain adequately controlled she may go home tonight or tomorrow.
[2018-11-24] MEDS: ATORVASTATIN 20 MG TABLET 40 MG PO (09:06)
[2018-11-24] MEDS: MULTIVITAMIN 1 TABLET 1 TAB PO (09:07)
[2018-11-24] MEDS: DOCUSATE 100 MG CAPSULE PO ×2 (09:07→21:15)
--- NOTE | 2018-11-24 09:52 | PT.IIE ---
Current Diagnoses Other spondylosis with radiculopathy, lumbosacral region (11/23/18) Spinal stenosis, lumbar region without neurogenic claudication (11/23/18) Arthrodesis status (11/23/18) Surgery Performed Operation Date: 11/23/18 11:15 Actual Procedures p L4-5 lumbar HWR, exploration of fusion, repeat laminectomy, reinsertion of hardware, L4-S1 PSF w/ instrumentation - Sina Jacques MD Surgical History (Last Updated 11/16/18 @ 07:49 by Jess Siegel RN) Hx of sinus surgery (Inactive) S/P lumbar fusion (Inactive 12/02/17) Status post bilateral cataract extraction (Inactive) Medical History (Last Updated 11/16/18 @ 09:27 by Jess Siegel RN) Acute renal failure (Acute 05/09/18) Anemia (Acute) 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) Centrilobular emphysema (Acute 05/09/18) Diverticulosis of large intestine without hemorrhage (Chronic 04/22/15) Former smoker (Inactive 04/20/16) Hyperlipidemia (Chronic 04/20/16) Hypertension (Chronic 06/06/17) Lumbar spondylosis (Chronic) Osteoporosis (Chronic 04/22/15) 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) Peripheral arterial disease (Chronic 02/13/16) Vascular claudication (Chronic 04/20/16) Physical Therapy Inpatient Evaluation/Re-Eval M1 PT/OT-IP Prior Functional Status Start: 11/24/18 10:44 Freq: NEEDED Status: Active Protocol: Document 11/24/18 09:52 AB (Rec: 11/24/18 10:55 AB [id number]) Medical Review Prior Functional Status Medical History Reviewed Yes Communication able to make needs known Mobility and Gait Pt stated that she is modified independent with all mobilities and ambulation without AD indoors but uses her walking sticks ( occasionally just one) for outdoor mobility Social History Household Members spouse Living Arrangements House Number of Floors (Floors) 3 or More Floors Number of Stairs To Enter/Railing? pt will stay on main level of the house; has 2 steps to enter with wide bilateral rails and can only hold one rail at a time Home Environment Standard Height Toilet,Tub/ Shower Home Equipment Four Wheel Walker,Manual Wheelchair,Raised Toilet Seat w/Armrests,Hand Held Shower, Grab Bars In Shower Additional Social History Comment pt has walking sticks stated that her daughter khadra stay home with her for ~ 2days to assist her. M2 PT-IP Current Condition Start: 11/24/18 10:44 Freq: NEEDED Status: Active Protocol: Document 11/24/18 09:52 AB (Rec: 11/24/18 10:55 AB [id number]) Physical Therapy Current Condition Current Condition Evaluation Date 11/24/18 Treatment Diagnosis s/p L4-5, L5-S1 fusion/lami; difficulty in walking Onset Date 11/23/18 Precautions Lumbar Precautions Log Roll,No Twisting,Limit Bending,Lifting Restriction of 10 lbs,Gait Belt above Incisional Area M3 PT-IP Subjective Start: 11/24/18 10:44 Freq: NEEDED Status: Active Protocol: Document 11/24/18 09:52 AB (Rec: 11/24/18 10:55 AB [id number]) Subjective Physical Therapy Visit Type Type Initial Evaluation Visit Start Time 09:52 Visit Stop Time 10:24 Total Visit Minutes 32 Number of UNDERWRITING MANAGER Visits 0 Physical Therapy Visit Comments Patient Comments pt agreeable to do PT Patient Goals to go home Therapy Pain Assessment Pain When Pain Assessed At Rest Pain Present Pain Present Pain Reported Location Lower Back Intensity 4 Scale Used Numeric (1 - 10) Pain Management Techniques Re-positioning,Timing of Activity with Medications M4 PT-IP Mobility and Gait Start: 11/24/18 10:44 Freq: NEEDED Status: Active Protocol: Document 11/24/18 09:52 AB (Rec: 11/24/18 10:55 AB [id number]) PT-Bed Mobility Assessment Rolling Type of Rolling Log Rolling Level of Assist Standby Assistance Supine to Sit Supine to Sit Standby Assistance Scooting Scooting to Edge of Bed Standby Assistance PT-Transfer Assessment Sit to and From Stand Sit to and from Stand Contact Guard Assistance, Minimal Assistance Equipment Transfer Assistive Device Gait Belt,Front Wheeled Walker Transfers Transfer Destination Chair Transfer Technique pt ambulated using FWW Transfer Ability Level of Assist Contact Guard Assistance, Minimal Assistance,1 Person Assistance Gait Assessment Gait Gait Assistance Required: Contact Guard Assist,Minimum Assistance Distance (Feet) 15 Able to Maintain Weight Bearing Status No During Gait Assistive Devices Assistive Device Gait Belt,Front Wheeled Walker Orthotic/Prosthetic Devices or Brace: No Gait Deviations General Gait Pattern Antalgic,Decreased Stride Length,Decreased Feet Clearance,Step-to Gait Factors Limiting Gait Function Factors Limiting Gait Function Decreased Activity Tolerance, Decreased Strength,Limited Range of Motion,Pain,Poor Balance,Poor Safety Awareness Comments Gait Comments pt presents with decrease lulú and guarding during standing and ambulation with increase UE weight bearing on FWW for support. PT-Balance Assessment Sitting Balance and Reactions Static Sitting Balance Ability Good Dynamic Sitting Balance Ability Good Standing Balance and Reactions Static Standing Balance Ability Fair Dynamic Standing Balance Ability Fair Device Used FWW M5 PT-IP Objective Assessments Start: 11/24/18 10:44 Freq: NEEDED Status: Active Protocol: Document 11/24/18 09:52 AB (Rec: 11/24/18 10:55 [id number]) Orientation Orientation/Cognition Level of Alertness Alert Orientation Name,Place,Situation Language Function Ability No Deficits Noted Gross Range of Motion Lower Extremity ROM Assessment Within Functional Limits Strength Lower Extremity Strength Assessment Bilaterally Impaired Comments Strength Comments LLE: 4-/5 RLE: 3+/5 Coordination Assessment Gross Coordination Gross Coordination WNL Sensation Assessment Sensation Gross Sensation WNL Muscle Tone Muscle Tone WNL Yes M6 PT-IP Treatment Start: 11/24/18 10:44 Freq: NEEDED Status: Active Protocol: Document 11/24/18 09:52 AB (Rec: 11/24/18 10:55 [id number]) Physical Therapy Treatment Education Education Provided Precautions,Weight Bearing Status,Post-Op Packet,Safety M7 PT-IP Assessment and Plan Start: 11/24/18 10:44 Freq: NEEDED Status: Active Protocol: Document 11/24/18 09:52 AB (Rec: 11/24/18 10:55 [id number]) PT Summary Assessment and Plan Potential Rehabilitation Potential Good Status of Condition at Evaluation Stable Summary Impairments Pain,ROM,Strength,Balance, Coordination,Cognition,Bed Mobility,Transfers,Gait, Activity Tolerance Assessment Summary pt requiring CGA to min A and cues and will likely progress during hospital stay. pt will have family to assist her at home. will have to conduct caregiver training when appropropriate and stair training. Goals Bed Mobility Goal Independent Transfer Goal Independent,Front Wheeled Walker Gait Goal Independent,Front Wheel Walker Gait Distance 200 Other Goals up/down 2 steps 1 rail SBA Days to Meet Goals 3 Frequency of Treatment Frequency Of Treatment Twice a Day Treatment Plan Physical Therapy Treatment Plan Bed Mobility Training,Transfer Training,Gait Training, Therapeutic Exercise,Balance Retraining,Post Op Education, Discharge Planning,Hot or Cold Pack,Neuromuscular Re-ed, Coordination Retraining,Manual Therapy Recommendations To Nursing Amount of Assist Needed 1 Person Assist Discharge Recommendations PT Discharge Recommendations Home with Assistance Equipment Needed for Home Before FWW if not safe with 4WW Discharge
--- NOTE | 2018-11-24 10:43 | CM.DANOTE ---
Discharge Planning/Care Management DCP: assessment: case received, EMR reviewed and met this morning with pt. Introduced self and role. Pt is a 77 year old female who admitted yesterday for a planned spinal surgery. Surgeon: Dr. Jacques Payer: Medicare and [employer] PCP: Dr. Ruano. Ortho PA Reina was in this morning and her progress note confirms that pt has not yet had an initial PT or OT session. She stated that pt COULD d/c late today IF: her clayton was out and she was voiding : her pain was adequately controlled: she was mobilizing safely. Otherwise she says she expects pt will be ready for d/c tomorrow. Pt does confirm her plan for home at d/c with her and her 2 daughters's supportive assist. She does say she is eager to start her first session as at time of our discussion she had not been out of bed since arriving yesterday from PACU to her room. She says she thinks it is more likely that she will not be ready for d/c until tomorrow. DCP team will be following. Advanced directive, confirm from FAMILY Start: 11/23/18 15:17 Freq: Q24H Status: Active Protocol: Document 11/23/18 17:07 LDV (Rec: 11/23/18 19:50 LDV [id number]) Advance Directive, confirm on record Time 19:50 Person contacted pt Copy received No CM Discharge Assessment Start: 11/24/18 10:41 Freq: Status: Active Protocol: Document 11/24/18 10:42 ITV (Rec: 11/24/18 10:43 ITV [id number]) Discharge Planning Assessment Advance Directives? Yes Advance Directives on File Yes History Provided By Patient,Medical Record Prior Living Arrangements House Household Members spouse Discharge Plan Home Whiteboard Updated in Patient Room with Yes name and ext. # of Copy Worker Review Status In Process Pre-Anesthesia Assessment Start: 11/16/18 07:31 Freq: Status: Active Protocol: Document 11/16/18 07:31 CAB (Rec: 11/16/18 09:42 CAB [id number]) Pre-Anesthesia Assessment PAC Comment Hx of multiple GLFs, most recent 11/14/18, evaluated @ [facility]. With previous fall on , pt sustained significant head laceration, required admit to . Lives on [facility] Patient Also Known As Abraham (AKA) Patient Information Reviewed Via Phone Assessment Assessment Completed With Patient Diagnostic Results BMP/CMP,CBC Comment Labs @ [facility]10/06/18, EKG @ PCP Primary Care Provider Miguel Ruano Medical Clearance Received Yes Seen Specialist in Last 12 Months Yes Specialist Seen Hospital Clerk,Emergency, Orthopedist Comment PCP Pre-op clearance 10/06/18 in [employer] Primary Language Senegalese Preferred Language Senegalese Height 157.48 cm Weight 52.163 kg Body Mass Index (BMI) 21.0 Hearing Ability Normal Visual Assist Glasses Dentition Type Full- Upper & Lower Barriers to Learning None Other Aids No Hx Anesthesia Reactions No Hx Family Anesthesia Reaction No Hx Malignant Hyperthermia No Hx Blood Transfusions Yes: x 2, most recently 05/02 r /t fall Hx Blood Transfusion Reaction No Anesthesia Review Requested No Security Systems Integrator Yes alcohol intake current alcohol intake frequency 0-2 drinks per day Smoking Status Former smoker how long ago did patient quit smoking Had been smoking a couple of cigarettes recently, quit 1-2 months ago Substance Use Type does not use Pain Present Pain Reported Musculoskeletal Symptoms Abnormal Gait,Back Pain, Difficulty Walking,Muscle Cramps,Muscle Spasms,Muscle Weakness,Radiating Pain into Limb History of Falling (Recent or History of Yes ) Patient is completely paralyzed or No completely immobile Prosthesis or Orthotic Device Cane,Front Wheel Walker Mental Status Oriented to own ability Comment Multiple falls Is patient on oxygen? No Does patient have BANKS/SOB No Hx Sleep Apnea No CPAP/BIPAP use not prescribed Suspected Sleep Apnea No Currently Taking a Beta Wing No Can You Climb a Flight of Stairs Without Yes SOB Hx Chest Pain No Hx SOB No Hx Syncope or Dizziness No Anti-Coagulant Therapy Yes: Aspirin-to stay on 81mg perioperatively per PCP Has a Hospital Clerk Dr. Chu-last visit 11/10/17 Cardiac Testing Yes: Echo @ [facility] 11/21/18 Hx Pacemaker/ICD No Pacemaker Rep Required? No Cardiac Clearance Received Yes Comment Last clearance 11/25/17 scanned to record from prior surgery 12/02/17 Diet Type At Home Regular dysphagia No Urinary Catheter Present No Hx Urinary Self Catheterization No Diabetes No Patient No Lactating No Hx Drug Resistant Organism No Presence of External or Internal Medical Yes: Iliac stent, bilateral Devices eye lens, lumbar hardware Have you traveled outside the [facility] in the last 30 days? Marital Status Lives With spouse Prior Living Arrangements House Number of Floors (Floors) 3 or More Floors Support System Child/Children,Spouse Patient Discharge Plan Description Return Home Comment Lives on [facility] Feels Safe in Current Environment Yes Been Physically Hurt or Threatened By a No Person in Current Environment Do you have thoughts of harming yourself None or others? Are you currently considering suicide? No Do you have a plan to hurt yourself or No Plan others? Do You Have Any Spiritual Beliefs That No May Affect Your HC Choices? Do You Have Any Cultural Practices That No May Affect Your HC Choices? Spiritual Referral None Comment Adventism Who Can We Speak to About Patient's Care Family, friends Identifying Code for Release of Patient Declines to issue Information Health Care Proxy/Next of Kin Amilcar () Health Care Proxy Emergency Contact Name Rayna Kraus (daughter) Emergency Contact Advance Directives? Yes Advance Directives on File Yes Power of Station Installation Supervisor Yes Power of Station Installation Supervisor Name Amilcar () Power of Station Installation Supervisor PAC Instructions Durable medical equipment, Medications to take/avoid, Nasal antibiotic,No ETOH/ petroleum product on skin DOS, NPO,Ortho class,Post-op transportation,Pre-surgical wash,Sturdy shoes/comfortable clothes,Do not bring valuables and remove jewelry
--- NOTE | 2018-11-24 11:44 | PC.NURSE ---
This morning, patient reports mod to severe pain, requests 10 mg Oxycodone; pain reassessed at 04/23; @ 1120 pt c/o light-headedness upon sitting up in chair, BP 114/60, patient encouraged to hydrate; c/m/s to blles positive; pt denies calf tenderness; O2 RA=95%, encouraged cough/deep breathe and IS; [place] draining to gravity; gauze drsg to lower back secured with tegaderm, shadow drainage within sharpie outline X2; Pt requests eye drops for dry left eye, no redness or sign of infection; pt tolerating diet, no nausea; call light within reach and family in room
--- NOTE | 2018-11-24 15:07 | PT.IPTN ---
Current Diagnoses Other spondylosis with radiculopathy, lumbosacral region (11/23/18) Spinal stenosis, lumbar region without neurogenic claudication (11/23/18) Arthrodesis status (11/23/18) Surgery Performed Operation Date: 11/23/18 11:15 Actual Procedures p L4-5 lumbar HWR, exploration of fusion, repeat laminectomy, reinsertion of hardware, L4-S1 PSF w/ instrumentation - Sina Jacques MD Physical Therapy Treatment Note M2 PT-IP Current Condition Start: 11/24/18 10:44 Freq: NEEDED Status: Active Protocol: Document 11/24/18 09:52 AB (Rec: 11/24/18 10:55 AB [id number]) Physical Therapy Current Condition Current Condition Evaluation Date 11/24/18 Treatment Diagnosis s/p L4-5, L5-S1 fusion/lami; difficulty in walking Onset Date 11/23/18 Precautions Lumbar Precautions Log Roll,No Twisting,Limit Bending,Lifting Restriction of 10 lbs,Gait Belt above Incisional Area M3 PT-IP Subjective Start: 11/24/18 10:44 Freq: NEEDED Status: Active Protocol: Document 11/24/18 15:05 SP (Rec: 11/24/18 16:03 SP [id number]) Subjective Physical Therapy Visit Type Type Treatment Note Visit Start Time 14:30 Visit Stop Time 15:07 Total Visit Minutes 32 Number of MAINTENANCE PAINTER APPRENTICE Visits 1 Physical Therapy Visit Comments Patient Comments pt agreeable to work with PT. Patient Goals go home M4 PT-IP Mobility and Gait Start: 11/24/18 10:44 Freq: NEEDED Status: Active Protocol: Document 11/24/18 15:05 SP (Rec: 11/24/18 16:03 SP [id number]) PT-Bed Mobility Assessment Rolling Type of Rolling Log Rolling Level of Assist Standby Assistance Supine to Sit Supine to Sit Standby Assistance Scooting Scooting to Edge of Bed Standby Assistance PT-Transfer Assessment Sit to and From Stand Sit to and from Stand Contact Guard Assistance, Minimal Assistance Equipment Transfer Assistive Device Gait Belt,Front Wheeled Walker ,4 Wheeled Walker Transfers Transfer Destination Chair Transfer Technique pt ambulated using FWW and 4ww Transfer Ability Level of Assist Contact Guard Assistance, Minimal Assistance,1 Person Assistance Gait Assessment Gait Gait Assistance Required: Contact Guard Assist Distance (Feet) 269 Able to Maintain Weight Bearing Status Yes During Gait Assistive Devices Assistive Device Gait Belt,Front Wheeled Walker ,4 Wheeled Walker Orthotic/Prosthetic Devices or Brace: No Gait Deviations General Gait Pattern Decreased Stride Length, Decreased Feet Clearance,Step- to Gait Factors Limiting Gait Function Factors Limiting Gait Function Decreased Activity Tolerance, Decreased Strength,Limited Range of Motion,Pain,Poor Balance,Poor Safety Awareness Comments Gait Comments pt presents with decrease lulú and guarding during standing and ambulation minimal UE weight bearing on FWW for support, trialed 4WW with good demonstration post education on safety brake management with good carryover . Stair Climbing Assessment Evaluation Level of Assist On Stairs Contact Guard Assistance Technique/Endurance Stair Climbing Direction Ascend and Descend Stair Climbing Technique Step to Step Number of Steps Climbed 3 Stair Climbing Set # Repetitions (reps) 1 Comments Stair Climbing Comments Pt demonstrating good safety during stair mgt with no cues needed. PT-Balance Assessment Sitting Balance and Reactions Static Sitting Balance Ability Good Dynamic Sitting Balance Ability Good Standing Balance and Reactions Static Standing Balance Ability Fair Dynamic Standing Balance Ability Fair Device Used FWW, 4ww M5 PT-IP Objective Assessments Start: 11/24/18 10:44 Freq: NEEDED Status: Active Protocol: Document 11/24/18 09:52 AB (Rec: 11/24/18 10:55 AB [id number]) Orientation Orientation/Cognition Level of Alertness Alert Orientation Name,Place,Situation Language Function Ability No Deficits Noted Gross Range of Motion Lower Extremity ROM Assessment Within Functional Limits Strength Lower Extremity Strength Assessment Bilaterally Impaired Comments Strength Comments LLE: 4-/5 RLE: 3+/5 Coordination Assessment Gross Coordination Gross Coordination WNL Sensation Assessment Sensation Gross Sensation WNL Muscle Tone Muscle Tone WNL Yes M6 PT-IP Treatment Start: 11/24/18 10:44 Freq: NEEDED Status: Active Protocol: Document 11/24/18 15:05 SP (Rec: 11/24/18 16:03 SP [id number]) Physical Therapy Treatment Other Treatments Other Treatment Performed standing exercises with fww: marching in place x10, forward /backward/side stepping 10 ft x1 lap each seated marching and HRTR x10 each- cued slow and controlled pacing. M7 PT-IP Assessment and Plan Start: 11/24/18 10:44 Freq: NEEDED Status: Active Protocol: Document 11/24/18 15:05 SP (Rec: 11/24/18 16:03 SP [id number]) PT Summary Assessment and Plan Potential Rehabilitation Potential Good Status of Condition at Evaluation Stable Summary Impairments Pain,ROM,Strength,Balance, Coordination,Cognition,Bed Mobility,Transfers,Gait, Activity Tolerance Assessment Summary pt requiring CGA during gait, Min A for scooting EOB with cues as needed, will likely progress during hospital stay. pt will have family to assist her at home. will have to conduct caregiver training when appropropriate. Goals Bed Mobility Goal Independent Transfer Goal Independent,Front Wheeled Walker Gait Goal Independent,Front Wheel Walker Gait Distance 200 Other Goals up/down 2 steps 1 rail SBA Days to Meet Goals 3 Frequency of Treatment Frequency Of Treatment Twice a Day Treatment Plan Physical Therapy Treatment Plan Bed Mobility Training,Transfer Training,Gait Training, Therapeutic Exercise,Balance Retraining,Post Op Education, Discharge Planning,Hot or Cold Pack,Neuromuscular Re-ed, Coordination Retraining,Manual Therapy Recommendations To Nursing Amount of Assist Needed 1 Person Assist Discharge Recommendations PT Discharge Recommendations Home with Assistance Equipment Needed for Home Before FWW if not safe with 4WW Discharge
--- NOTE | 2018-11-24 16:50 | OT.IP.TRT ---
Current Diagnoses Other spondylosis with radiculopathy, lumbosacral region (11/23/18) Spinal stenosis, lumbar region without neurogenic claudication (11/23/18) Arthrodesis status (11/23/18) Surgery Performed Operation Date: 11/23/18 11:15 Actual Procedures p L4-5 lumbar HWR, exploration of fusion, repeat laminectomy, reinsertion of hardware, L4-S1 PSF w/ instrumentation - Sina Jacques MD Occupational Therapy Treatment Note M3 OT- IP Subjective and Pain Start: 11/24/18 16:37 Freq: Status: Active Protocol: Document 11/24/18 16:37 [facility] (Rec: 11/24/18 16:50 CCC [id number]) OT- Subjective Occupational Therapy Visit Type Type Patient Refusal Notes Attempted OT eval with pt. Pt states has recently had back surgery last year and at this time does not have any OT needs. Pt agreed to re-think about OT needs and that OT will check on pt tomorrow.
[2018-11-24] MEDS: SENNOSIDES 8.6 MG TABLET 17.2 MG PO (21:15)
--- NOTE | 2018-11-24 23:58 | PC.NURSE ---
Pt stated she was in an 8/10 pain for her back. Notified RN.
--- NOTE | 2018-11-25 03:57 | PC.NURSE ---
Addendum entered by Nicola Marcial R.N. 11/25/18 05:11: Pt has elevated temp 99.9, pt encouraged to use IS and deep breathing/turn/cough. Original Note: Pt VSS, lung sounds clear bilaterally. Pt has some pain this night. Oxycodone given at 0000.
[2018-11-25 04:30] VITALS: BP 132/71; PULSE 85; RESP 20; TEMP 37.7; O2SAT 91
[2018-11-25] MEDS: OXYCODONE IR 5 MG TABLET 10 MG PO ×2 (04:48→10:27)
[2018-11-25 08:00] VITALS: BP 105/49; PULSE 73; RESP 17; TEMP 36.6; O2SAT 89
[2018-11-25 09:00] VITALS: O2SAT 93
[2018-11-25 09:16] VITALS: O2SAT 94
[2018-11-25] MEDS: SODIUM CHLORIDE 0.9% FLUSH 10 ML IV (10:26)
[2018-11-25] MEDS: ACETAMINOPHEN 325 MG TABLET 650 MG PO (10:27)
[2018-11-25] MEDS: DOCUSATE 100 MG CAPSULE PO (10:28)
[2018-11-25] MEDS: MULTIVITAMIN 1 TABLET 1 TAB PO (10:28)
[2018-11-25] MEDS: ATORVASTATIN 20 MG TABLET 40 MG PO (10:29)
--- NOTE | 2018-11-25 10:36 | P.DS_ITS ---
History of Present Illness History of Present Illness Date Patient Seen: 11/25/18 Time Patient Seen: 09:00 Chief complaint: [id number] Narrative: Patient has been having chronic back pain and worsening lumbar radiculopathy. Patient had prior L4-5 fusion 1 year ago with progressively worsening pain at the adjacent level with worsening degenerative findings causing both mechanical back pain and radiculopathy. Patient failed multiple conservative management with worsening pain weakness and numbness in her lower extremity. Patient has been having difficulty performing activity of daily living. After discussing risks benefits of treatment options, patient elected proceed with surgery. Post op day 2, s/p L4-S1 TLIF with Dr. Jacques. Her pain is well controlled with tylenol and oxycodone. Patient has ambulating with PT. Dela Cruz catheter dis continued. Patient has no complaints. Patient denies fever, chills, nausea, vomiting, chest pain, shortness of breath. Discharge Providers Provider Date of admission: 11/23/18 08:31 Discharge Date: 11/25/18 Primary care physician: Miguel Ruano MD Consults: 11/23/18 14:43 Consult to Occupational Therapy Evaluate & Treat Comment: Physician Instructions: Evaluate and treat Consult to Physical Therapy Evaluate & Treat Comment: Physician Instructions: Evaluate and Treat Discharge provider: Karen Rosas PA-C Summary Hospital Course Discharge Diagnosis: s/p L4-S1 TLIF hypertension hyperlipidemia lumbar spondylosis peripheral arterial disease osteoporosis diverticulosis of large intestine without hemorrhage vascular claudication history of coronary artery disease with stent placement aortic bifurcation syndrome anemia Hospital Course: Patient admitted for an L4-S1 TLIF with Dr. Jacques. Hospital course was unremarkable. Post op day 2 patient was ready for discharge home. Patient discharged home with oxycodone and tylenol. Patient eating and voiding without difficulty or assistance prior to discharge. Patient doesn't have outpatient PT scheduled. Dressing was CDI. ASA 81 mg bid for DVT prophylaxis. Status at Discharge Cognitive/behavioral status at discharge: oriented Functional status at discharge: uses cane/walker Overall status at discharge: patient is progressing back to baseline Time Spent with Patient Time spent: Less than 30 minutes Exam Vital Signs (past 8 hours): - 11/25/18 04:30 11/25/18 08:00 11/25/18 09:00 Temperature 99.9 F H 97.8 F Pulse Rate 85 73 Respiratory Rate 20 17 Blood Pressure 132/71 105/49 L Pulse Oximetry 91 89 L 93 11/25/18 09:16 Temperature Pulse Rate Respiratory Rate Blood Pressure Pulse Oximetry 94 Fraction of Inspired Oxygen 28 Oxygen Delivery Method Room Air Oxygen Flow Rate 2 Narrative Exam Narrative: 77 year old female laying comfortably in bed, in no apparent distress. A&Ox3. Dressing CDI on lower back. Patient able to actively dorsiflex/plantar flex. Sensation grossly intact to light touch on lower extremities. Dorsalis pedis 2+ bilaterally. Capillary refill <2 seconds LE bilaterally. SCDs in place. Objective Labs Result Diagrams: 11/24/18 06:27 Discharge Plan Discharge Plan Patient Disposition: Home Discharge comment: discharge home pending PT clearance Discharge Med Rec/Prescriptions Prescriptions: New oxycodone 5 mg tablet 5 mg PO Q3H PRN (Reason: pain) Qty: 40 RF: 0 acetaminophen [Tylenol Extra Strength] 500 mg tablet 500 mg PO Q4H PRN (Reason: pain) Qty: 60 RF: 0 Continued multivitamin tablet 1 tab PO DAILY RF: 0 atorvastatin 40 mg tablet 40 mg PO DAILY RF: 0 lidocaine 5 % adhesive patch,medicated 1 patch TOP DAILY Qty: 15 RF: 0 Discontinued aspirin 81 MG tablet,delayed release (DR/EC) 81 mg PO QDAY Qty: 0 RF: 0 acetaminophen 325 mg Tablet 650 mg PO Q6HR PRN (Reason: Pain, Mild (1-3)) Qty: 60 RF: 0 Follow up/Referrals: Sina Jacques MD [Physician] - Miguel Ruano MD [Primary Care Provider] - Provider Discharge Instructions Diet: Regular Activity: No excessive bending, lifting, or twisting. Follow TLIF precautions Cold/Heat Therapy: continue cold/heat therapy as needed. Skin/Wound/Dressing Care Report to your healthcare provider any signs of infection, such as:: chills, fever, increased pain, unusual drainage and unusual redness Dressing: Coversite dressing prior to discharge. Keep dressing from getting wet. If dressing becomes saturated please contact the office. Visit Report/Discharge Packet Instructions: Oxycodone, DI for Transforaminal Lumbar Interbody Fusion Visit Report Forms: Patient Portal/API, Stroke Signs & Symptoms Discharge Data Primary Care Provider: Miguel Ruano Discharges patient from system. Discharge Date/Time: 11/25/18 13:00
--- NOTE | 2018-11-25 10:42 | PC.NURSE ---
Addendum entered by Amaya Starr R.N. 11/25/18 12:58: Discharge: IV dc'd intact. Reviewed all d/c instructions thoroughly with patient and family. Scripts filled by family earlier this morning. Verbalized understanding of all d/c info and stated no further questions. All personal belongings sent with patient. Assisted into wheelchair and taken out to private vehicle by nursing staff. Addendum entered by Amaya Starr R.N. 11/25/18 12:44: Surgical dressing removed and replaced with Coversite dressing. 2 parallel incisions on either side of spine were well-approximated with therese. No active bleeding or drainage noted, no erythema. Instructed that it's ok to get dressing wet, but not to let water run on it. No tubs/swimming. Dressing should stay on until f/u appt, but sent with supplies for 1 dressing replacement if needed. Original Note: Shift summary: Awake and alert, oriented X3. Room air sats 94%. Dressing to mid low back dry/intact with old shadow drainage. New order to change dressing prior to discharge (pending PT clearance). Rates low back pain 4/10 and was medicated with 10 mg Oxycodone and 650 mg Tylenol for the same. Reviewed precautions, needs reinforcement. Denies paresthesias. CMS+ and WNL. Lungs CTA, HRR. Voiding without issue. Able to make needs known and calls appropriately. Light within reach, bed alarm on.
--- NOTE | 2018-11-25 11:28 | CM.DPC ---
DCP Cont: Patient is to be discharged home today. Met with patient in her room, family present. Has her sign the IMM form. Family member will take her prescription over to the pharmacy to get it filled. was in the room as well. She resides on [facility] with her spouse. P: Patient is to be discharged home today. Lacey Dowling RN/Molding Machine Setter
--- NOTE | 2018-11-25 12:34 | PT.IPTN ---
Current Diagnoses Other spondylosis with radiculopathy, lumbosacral region (11/23/18) Spinal stenosis, lumbar region without neurogenic claudication (11/23/18) Arthrodesis status (11/23/18) Surgery Performed Operation Date: 11/23/18 11:15 Actual Procedures p L4-5 lumbar HWR, exploration of fusion, repeat laminectomy, reinsertion of hardware, L4-S1 PSF w/ instrumentation - Sina Jacques MD Physical Therapy Treatment Note M2 PT-IP Current Condition Start: 11/24/18 10:44 Freq: NEEDED Status: Active Protocol: Document 11/24/18 09:52 AB (Rec: 11/24/18 10:55 AB [id number]) Physical Therapy Current Condition Current Condition Evaluation Date 11/24/18 Treatment Diagnosis s/p L4-5, L5-S1 fusion/lami; difficulty in walking Onset Date 11/23/18 Precautions Lumbar Precautions Log Roll,No Twisting,Limit Bending,Lifting Restriction of 10 lbs,Gait Belt above Incisional Area M3 PT-IP Subjective Start: 11/24/18 10:44 Freq: NEEDED Status: Active Protocol: Document 11/25/18 12:22 AW (Rec: 11/25/18 12:34 AW [id number]) Subjective Physical Therapy Visit Type Type Treatment Note Visit Start Time 10:48 Visit Stop Time 11:03 Total Visit Minutes 15 Number of OPERATIONS CONSULTANT Visits 0 Physical Therapy Visit Comments Patient Comments Pt happy to work with PT Patient Goals Pt hopes to discharge to home today Therapy Pain Assessment Pain When Pain Assessed During Mobility Pain Present Pain Present Pain Reported Location Lower Back Intensity 3 Scale Used 3/10 at rest and during mobility Pain Management Techniques Re-positioning,Timing of Activity with Medications M4 PT-IP Mobility and Gait Start: 11/24/18 10:44 Freq: NEEDED Status: Active Protocol: Document 11/25/18 12:22 AW (Rec: 11/25/18 12:34 AW [id number]) PT-Bed Mobility Assessment Rolling Type of Rolling Log Rolling Level of Assist Contact Guard Assistance Supine to Sit Supine to Sit Standby Assistance Scooting Scooting to Edge of Bed Standby Assistance PT-Transfer Assessment Sit to and From Stand Sit to and from Stand Standby Assistance Equipment Transfer Assistive Device Gait Belt,4 Wheeled Walker Transfers Transfer Destination Chair Transfer Technique pt ambulated using FWW Transfer Ability Level of Assist Standby Assistance,Contact Guard Assistance,1 Person Assistance Comments Mobility Comments Pt required decreased level of assist for transfers Gait Assessment Gait Gait Assistance Required: Standby Assistance Distance (Feet) 250 Able to Maintain Weight Bearing Status Yes During Gait Assistive Devices Assistive Device Gait Belt,4 Wheeled Walker Orthotic/Prosthetic Devices or Brace: No Gait Deviations General Gait Pattern Antalgic,Decreased Stride Length,Decreased Feet Clearance Factors Limiting Gait Function Factors Limiting Gait Function Decreased Activity Tolerance, Decreased Strength,Limited Range of Motion,Pain,Poor Balance,Poor Safety Awareness Comments Gait Comments Pt ambulated 250 feet using 4WW SBA with minimal UE weightbearing. Pt continues to demonstrate good safety awareness with 4WW Stair Climbing Assessment Evaluation Level of Assist On Stairs Standby Assistance,Contact Guard Assistance Technique/Endurance Stair Climbing Direction Ascend and Descend Stair Climbing Technique Step to Step Number of Steps Climbed 3 Stair Climbing Set # Repetitions (reps) 1 Comments Stair Climbing Comments Pt demonstrated good sequencing and safety awareness with stairs using L handrail M5 PT-IP Objective Assessments Start: 11/24/18 10:44 Freq: NEEDED Status: Active Protocol: Document 11/24/18 09:52 AB (Rec: 11/24/18 10:55 AB [id number]) Orientation Orientation/Cognition Level of Alertness Alert Orientation Name,Place,Situation Language Function Ability No Deficits Noted Gross Range of Motion Lower Extremity ROM Assessment Within Functional Limits Strength Lower Extremity Strength Assessment Bilaterally Impaired Comments Strength Comments LLE: 4-/5 RLE: 3+/5 Coordination Assessment Gross Coordination Gross Coordination WNL Sensation Assessment Sensation Gross Sensation WNL Muscle Tone Muscle Tone WNL Yes M6 PT-IP Treatment Start: 11/24/18 10:44 Freq: NEEDED Status: Active Protocol: Document 11/24/18 15:05 SP (Rec: 11/24/18 16:03 SP [id number]) Physical Therapy Treatment Other Treatments Other Treatment Performed standing exercises with fww: marching in place x10, forward /backward/side stepping 10 ft x1 lap each seated marching and HRTR x10 each- cued slow and controlled pacing. M7 PT-IP Assessment and Plan Start: 11/24/18 10:44 Freq: NEEDED Status: Active Protocol: Document 11/25/18 12:22 AW (Rec: 11/25/18 12:34 AW [id number]) PT Summary Assessment and Plan Potential Rehabilitation Potential Good Status of Condition at Evaluation Stable Summary Impairments Pain,ROM,Strength,Balance, Coordination,Cognition,Bed Mobility,Transfers,Gait, Activity Tolerance Assessment Summary Pt required SBA during gait with 4WW and CGA for stairs. Spouse present for caregiver training. She is safe to discharge to home environment with family assist when medically cleared. Goals Bed Mobility Goal Independent Transfer Goal Independent,Front Wheeled Walker Gait Goal Independent,Front Wheel Walker Gait Distance 200 Other Goals up/down 2 steps 1 rail SBA Days to Meet Goals 2 Frequency of Treatment Frequency Of Treatment Twice a Day Treatment Plan Physical Therapy Treatment Plan Bed Mobility Training,Transfer Training,Gait Training, Therapeutic Exercise,Balance Retraining,Post Op Education, Discharge Planning,Hot or Cold Pack,Neuromuscular Re-ed, Coordination Retraining,Manual Therapy Recommendations To Nursing Amount of Assist Needed 1 Person Assist Discharge Recommendations PT Discharge Recommendations Home with Assistance
--- NOTE | 2018-11-25 14:14 | OT.IP.TRT ---
Current Diagnoses Other spondylosis with radiculopathy, lumbosacral region (11/23/18) Spinal stenosis, lumbar region without neurogenic claudication (11/23/18) Arthrodesis status (11/23/18) Surgery Performed Operation Date: 11/23/18 11:15 Actual Procedures p L4-5 lumbar HWR, exploration of fusion, repeat laminectomy, reinsertion of hardware, L4-S1 PSF w/ instrumentation - Sina Jacques MD Occupational Therapy Treatment Note M3 OT- IP Subjective and Pain Start: 11/24/18 16:37 Freq: Status: Active Protocol: Document 11/25/18 14:13 CGR (Rec: 11/25/18 14:14 CGR [id number]) OT- Subjective Occupational Therapy Visit Type Type Patient Refusal Notes Attempted to see pt for Eval. Pt declined stating that she knows everything from previous back surgery and declines further OT needs.
== END 2018-11-25 13:00 | disposition home or self-care (01) | DRG 454 ==
PROVIDERS: Admitting Provider Orthopaedic Surgery Orthopaedic Surgery of the Spine; PCP Internal Medicine; Visit Provider Orthopaedic Surgery Orthopaedic Surgery of the Spine
PROC: 0SG30AJ Fusion of Lumbosacral Joint with Interbody Fusion Device, Posterior Approach, Anterior Column, Open Approach (ICD-10-PCS; principal; 2018-11-23 11:15)
DX: M48.062 Spinal stenosis, lumbar region with neurogenic claudication (principal); M96.0 Pseudarthrosis after fusion or arthrodesis; M41.26 Other idiopathic scoliosis, lumbar region; M48.07 Spinal stenosis, lumbosacral region; I73.9 Peripheral vascular disease, unspecified; M47.26 Other spondylosis with radiculopathy, lumbar region; I10 Essential (primary) hypertension; I25.10 Atherosclerotic heart disease of native coronary artery without angina pectoris; Z87.891 Personal history of nicotine dependence
CPT/HCPCS: 36415; 72100; 76000; 85014; 85018; 94760; 94762; 97110; 97116; 97161; 97530; C1776; C9290; J0330; J0690; J1100; J1170; J2250; J2405; J2704; J3010

== ENCOUNTER 2019-04-17 10:30 | Outpatient (RCR) | payer MEDICARE, OTHER, SELFPAY ==
[2018-11-23 15:12] VITALS: BMI 21.0
--- NOTE | 2019-03-29 17:00 | PT.OIE ---
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) Centrilobular emphysema (Acute 05/09/18) Diverticulosis of large intestine without hemorrhage (Chronic 04/22/15) Former smoker (Inactive 04/20/16) Hyperlipidemia (Chronic 04/20/16) Hypertension (Chronic 06/06/17) Lumbar spondylosis (Chronic) Osteoporosis (Chronic 04/22/15) 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) Peripheral arterial disease (Chronic 02/13/16) Vascular claudication (Chronic 04/20/16) Past Surgical History (Last Updated 11/16/18 @ 07:49 by Jess Siegel RN) Hx of sinus surgery (Inactive) S/P lumbar fusion (Inactive 12/02/17) Status post bilateral cataract extraction (Inactive) Visit Care Team Role Provider Type Miguel Ruano MD Primary Care Provider Physician Specialty: Internal Medicine Address: [address] [place] [address], [address], [address] Email: [email or web address] Sina Jacques MD Attending Provider Physician Referring Provider Specialty: Orthopedic Surgery Address: [address] [place] [address], [address] Email: [email or web address] [facility] Initial Evaluation PT-OP-A Visit Information Start: 03/29/19 08:20 Freq: Status: Active Protocol: Document 03/29/19 12:48 LRN (Rec: 03/29/19 13:42 LRN [id number]) Out-Patient Physical Therapy Visit Information Visit Information Visit Type Initial Evaluation Visit Start Time 12:48 Visit Stop Time 13:42 Total Visit Minutes 54 Visit Number 1 Evaluation Information Evaluation Date 03/29/19 Precautions Precautions Low back post surgery pre- cautions. Per record review: ectopic atrial rhythm Osteoporosis, Hx of T7 compression fx & rib fx lumbar spondylosis, vascular claudication, HTN PT-OP-B Current Condition Start: 03/29/19 08:20 Freq: Status: Active Protocol: Document 03/29/19 12:48 LRN (Rec: 03/29/19 13:42 LRN [id number]) Current Condition History of Current Condition Onset Date 2017 Current Complaints Legs need strengthening History of Current Condition Pt attends physical therapy for LE strengthening. She states she has had trouble with L sided back pain since 2017 and had her first L5-S1 L sided laminectomy, followed by a 2nd surgery in 2019. She states she fell a yr ago in April when getting up to go to bathroom and ended up with a black eye from a cut. She states she wears something around the waist that has a battery pack, to help with healing of her back and that the battery will stop in 4 months. She reports no precautions or restrictions by her MD, but that she is supposed to take it easy. She feels her balance is not good and she needs a walking stick to walk to the mailbox. Current she complains of back pain most noticeable when doing dishes. She requires the use of railing going down stairs (on the right) and when going up stairs she uses the rail (on left) due to back pain. Developmental History Developmental History Pt reports: L5-S1 left amanda-laminectomy & L4-5 TLIF w/posterior instrumentation - 12/02/2017. 2nd surgery, L side, same surgery, one level lower - 12/2018. Treatment Goals Patient/Caregiver Goals Pt goal: *to strengthening legs to do more walking, walk down the street. Was able to walk down street last summer (10-15' walk). *to improve balance to make it safe getting up in the night. * to improve balance to feel safe vacuuming, has to rest frequently. * to improve activity tolerance to minimize the assist of spouse in doing laundry (spouse currently takes clothes out of washer and into dryer & carries laundry to sofa). Prior Functional Status Baseline Function- ADL's Independent Baseline Function- Mobility Independent Baseline Function- Gait Walked w/o assistive device to walk to mailbox. Walked around house, 13' Baseline Function- Recreation/Hobbies Couldn't garden last year because of back pain. Baseline Function- Other Lives with spouse. Current Functional Impairments (Reported) Functional Limitations- ADL's Independent. Functional Limitations- Mobility/Gait Difficulty walking to mailbox and back. Unable to walk around house. Functional Limitations- Recreation/ Limited in being able to Hobbies gardening. Personal Factors Other Personal Factors That May Effect Pt reported Lumbar surgery x 2 Therapy/Recovery . Per record review: Osteoporosis, hx of closed wedge compression fx of T7 and closed rib fx from fall lumbar spondylosis, vascular caludication, HTN, ectopic atrial rhythm PT-OP-C Subjective Start: 03/29/19 08:20 Freq: Status: Active Protocol: Document 03/29/19 12:48 LRN (Rec: 03/29/19 13:42 LRN [id number]) Patient Questionnaires Oswestry Low Back Index Oswestry Score 14 Oswestry Impairment 20 to 39% Impaired (Score 20- 39) OP-PT Pain Assessment Pain Assessment Grid Paper Pain Assessment Grid Completed Yes Location Lower Back Pain Location Details Across the low back Intensity 3 Scale Used Numeric (1 - 10) Description Aching Frequency Intermittent Pain Duration During activity Pain Alleviating Factors Medication Other Pain Alleviating Factors Tylenol Patient Stated Pain Goal Hopes to get off. PT-OP-E Functional Tests Start: 03/29/19 08:20 Freq: Status: Active Protocol: Document 03/29/19 12:48 LRN (Rec: 04/01/19 14:43 LRN [id number]) Functional Tests Timed Up and Go (TUG) Score 13.3 Comments No assistive device TUG Impairment Rating 40 to <60% Impaired (Score 14- 15) PT-OP-G Mobility & Gait Start: 03/29/19 08:20 Freq: Status: Active Protocol: Document 03/29/19 12:48 LRN (Rec: 04/01/19 14:43 LRN [id number]) Stair Climbing Evaluation Devices Stair Climbing Assistive Devices Left Railing,Right Railing Technique/Endurance Stair Climbing Direction Ascend and Descend Stair Climbing Technique Step Over Step Number of Steps Climbed 4 Stair Climbing Set # Repetitions (reps) 1 Comments Stair Climbing Comments Pt does a quick panel lay up worker onto R LE when ascending steps with L rail, and ER's legs when descending steps using R railing. PT-OP-J Posture/Palpation/Skin Start: 03/29/19 08:20 Freq: Status: Active Protocol: Document 03/29/19 12:48 LRN (Rec: 04/01/19 14:43 LRN [id number]) Posture Evaluation Position Standing Evaluation View All positions Head/C-Spine Posture Forward Head T-Spine Posture Increased Kyphosis L-Spine Posture Rotation Right,Decreased Lordosis,Shifted Left Scapula Posture (L) Elevated Pelvis Posture (L) PSIS Posterior Knee Posture (L) Genu Varus,(R) Genu Varus PT-OP-K Range of Motion Start: 03/29/19 08:20 Freq: Status: Active Protocol: Document 03/29/19 12:48 LRN (Rec: 04/01/19 14:43 LRN [id number]) Lumbar Spine Range of Motion Lumbar Spine Active Testing Position Standing Flexion 53 Extension 8 Rotation Left 20 Rotation Right 20 Lateral Flexion Left 8 Lateral Flexion Right 5 Comments Rotation is approximation. Hip Goniometric Range of Motion Hip Left Testing Position Supine Straight Leg Raise 85 Extension 10 Abduction 30 Internal Rotation 45 External Rotation 60 Right Testing Position Supine Straight Leg Raise 80 Extension 5 Abduction 35 Internal Rotation 50 External Rotation 65 PT-OP-M Strength Start: 03/29/19 08:20 Freq: Status: Active Protocol: Document 03/29/19 12:48 LRN (Rec: 04/01/19 14:43 LRN [id number]) Hip Strength Hip Manual Muscle Testing Right Flexion (L2) 3 Fair Extension (S1) 2- Poor- Abduction 3 Fair Adduction 3- Fair- External Rotation 5 Normal Internal Rotation 3 Fair Left Flexion (L2) 3 Fair Extension (S1) 2- Poor- Abduction 3- Fair- Adduction 2 Poor External Rotation 3 Fair Internal Rotation 3 Fair Ankle/Foot Strength Ankle and Foot Manual Muscle Testing Right Inversion 3 Fair Eversion (S1) 3 Fair Comments Ankle PF/DF is WNL Left Inversion 3 Fair Eversion (S1) 3 Fair Comments Ankle PF/DF is WNL PT-OP-Q Treatments Start: 03/29/19 08:20 Freq: Status: Active Protocol: Document 03/29/19 12:48 LRN (Rec: 03/29/19 18:32 LRN [id number]) Self-Care/Home Management Treatment Education Patient Education Home Exercise Program Activities Self-Care/Home Management Activities I/S and reviewed with pt, HEP: Hip strengthening: Flex, AB/ AD in sidelie, Ext prone. PT-OP-T Assessment and Plan Start: 03/29/19 08:20 Freq: Status: Active Protocol: Document 03/29/19 12:48 LRN (Rec: 03/29/19 13:42 LRN [id number]) Physical Therapy Assessment Rehab Potential Rehabilitation Potential Good Evaluation Complexity Number of Personal Factors/Comorbidities 3 or More Number of Body Systems Impaired 4 or More Clinical Presentation at Evaluation Evolving Impairments Impairments Activity Tolerance,Balance, Gait,Pain,ROM,Soft Tissue Mobility,Strength Goals Five Impairment Lacks appropriate self care HEP Correction Goal (LTG) Patient will be independent in an appropriate self care HEP. LTG Duration 07/27/19 Four Impairment Impaired functional ability due to limited trunk mobility and SLS ability. 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 STG Duration 06/11/19 Surgical Aide Goal (LTG) Pt will be improve SLS ability from 0-1 sec to 10 secs bilaterally, with pt able to walk and carry light loads of laundry without confident stability and without onset of back pain greater than 2/10. LTG Duration 07/27/19 Three Impairment Increased risk of falling per TUG score 13.30 sec's (20<40% impaired) Surgical Aide Goal (LTG) Pt will decrease risk of falling per TUG score of 11-10 secs or less. LTG Duration 07/27/19 Two Impairment Impaired walking tolerance (pt only walking in home) Correction Goal (LTG) Patient will ambulate down her street (10') with no increase in low back symptoms. LTG Duration 07/27/19 One Impairment Low back Oswetry impaiment scale of 28% impairment Surgical Aide Goal (LTG) Patient will have Low back Oswestry results of < 10% impairment LTG Duration 07/27/19 Assessment Summary Assessment Pt presents s/p L5-S1 revision of laminectomy, L5-S1 posterolateral and posterior interbody fusion with cage placement and L4-L5 posterolateral fusion. 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 The pt is also concerned she will not be able to return to gardening activities when weather permits. The pt will benefit from skilled physical therapy to improve hip and ankle strength, hip and trunk mobility, balance and gait stability, and activity tolerance. Physical Therapy Plan Frequency and Duration Frequency of Treatment 2x/Week Plan of Care Start Date 03/29/19 Plan of Care End Date 07/27/19 Therapeutic Interventions Therapeutic Interventions Balance Training,Gait Training ,Home Exercise Program,Manual Therapy,Neuromuscular Re- education,Patient/Caregiver Education,Self-Care/Home Management,Soft Tissue Mobilization,Taping, Therapeutic Activities Modalities Cold Pack/Ice Massage,Hot Packs Next Visit Focus/Plan Next Note Type Treatment Note Next Visit Plan TM/Upright bike for aerobic conditioning, active table ex (hip, ankle, trunk) strengthening, f/b STM of lumbar spine. Balance training, end with MH or Cryotherapy.
--- NOTE | 2019-03-29 17:00 | PT.OPPOC ---
Physical, Occupational & Speech Therapy At [facility] Current Diagnoses Other spondylosis with radiculopathy, lumbar region (03/29/19) Spinal stenosis, lumbar region with neurogenic claudication (03/29/19) Muscle weakness (generalized) (03/29/19) Other abnormalities of gait and mobility (03/29/19) Visit Care Team Role Provider Type Miguel Ruano MD Primary Care Provider Physician Specialty: Internal Medicine Address: [address] [place] [address], [facility] [address], [place], [address] Email: [email or web address] Sina Jacques MD Attending Provider Physician Referring Provider Specialty: Orthopedic Surgery Address: [address] [place] [address], [address] Email: [email or web address] Plan Of Care PT-OP-T Assessment and Plan Start: 03/29/19 08:20 Freq: Status: Active Protocol: Document 03/29/19 12:48 LRN (Rec: 03/29/19 13:42 LRN [id number]) Physical Therapy Assessment Rehab Potential Rehabilitation Potential Good Evaluation Complexity Number of Personal Factors/Comorbidities 3 or More Number of Body Systems Impaired 4 or More Clinical Presentation at Evaluation Evolving Impairments Impairments Activity Tolerance,Balance, Gait,Pain,ROM,Soft Tissue Mobility,Strength Goals Five Impairment Lacks appropriate self care HEP Business Banking Representative Goal (LTG) Patient will be independent in an appropriate self care HEP. LTG Duration 07/27/19 Four Impairment Impaired functional ability due to limited trunk mobility and SLS ability. 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 STG Duration 06/11/19 Business Banking Representative Goal (LTG) Pt will be improve SLS ability from 0-1 sec to 10 secs bilaterally, with pt able to walk and carry light loads of laundry without confident stability and without onset of back pain greater than 2/10. LTG Duration 07/27/19 Three Impairment Increased risk of falling per TUG score 13.30 sec's (20<40% impaired) Assisted Goal (LTG) Pt will decrease risk of falling per TUG score of 11-10 secs or less. LTG Duration 07/27/19 Two Impairment Impaired walking tolerance (pt only walking in home) Assisted Goal (LTG) Patient will ambulate down her street (10') with no increase in low back symptoms. LTG Duration 07/27/19 One Impairment Low back Oswetry impaiment scale of 28% impairment Business Banking Representative Goal (LTG) Patient will have Low back Oswestry results of < 10% impairment LTG Duration 07/27/19 Assessment Summary Assessment Pt presents s/p L5-S1 revision of laminectomy, L5-S1 posterolateral and posterior interbody fusion with cage placement and L4-L5 posterolateral fusion. 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 The pt is also concerned she will not be able to return to gardening activities when weather permits. The pt will benefit from skilled physical therapy to improve hip and ankle strength, hip and trunk mobility, balance and gait stability, and activity tolerance. Physical Therapy Plan Frequency and Duration Frequency of Treatment 2x/Week Plan of Care Start Date 03/29/19 Plan of Care End Date 07/27/19 Therapeutic Interventions Therapeutic Interventions Balance Training,Gait Training ,Home Exercise Program,Manual Therapy,Neuromuscular Re- education,Patient/Caregiver Education,Self-Care/Home Management,Soft Tissue Mobilization,Taping, Therapeutic Activities Modalities Cold Pack/Ice Massage,Hot Packs Next Visit Focus/Plan Next Note Type Treatment Note Next Visit Plan TM/Upright bike for aerobic conditioning, active table ex (hip, ankle, trunk) strengthening, f/b STM of lumbar spine. Balance training, end with MH or Cryotherapy. Plan of Care Dates Plan of Care Start Date 03/29/19 Plan of Care End Date 07/27/19 Electronically Signed by: Jennifer Germain, PT 04/01/19 [id number] Please Sign and Return: I have reviewed this Plan of Care and certify that the skilled therapy services above are required to meet the patient?s needs. Physician Signature Date Printed Name and Credentials Clinical Instructor Signature Printed Name and Credentials
--- NOTE | 2019-04-09 11:15 | PT.OTN ---
Current Diagnoses Other spondylosis with radiculopathy, lumbar region (04/09/19) Spinal stenosis, lumbar region with neurogenic claudication (04/09/19) Muscle weakness (generalized) (04/09/19) Other abnormalities of gait and mobility (04/09/19) Physical Therapy Treatment Note PT-OP-A Visit Information Start: 03/29/19 08:20 Freq: Status: Active Protocol: Document 04/09/19 10:31 SP (Rec: 04/09/19 11:32 SP [id number]) Out-Patient Physical Therapy Visit Information Visit Information Visit Type Treatment Note Visit Start Time 10:31 Visit Stop Time 11:15 Total Visit Minutes 44 Visit Number 3 Number of WIRE DROPPER Visits 1 PT-OP-B Current Condition Start: 03/29/19 08:20 Freq: Status: Active Protocol: Document 03/29/19 12:48 LRN (Rec: 03/29/19 13:42 LRN [id number]) Current Condition History of Current Condition Onset Date 2017 Current Complaints Legs need strengthening History of Current Condition Pt attends physical therapy for LE strengthening. She states she has had trouble with L sided back pain since 2017 and had her first L5-S1 L sided laminectomy, followed by a 2nd surgery in 2019. She states she fell a yr ago in April when getting up to go to bathroom and ended up with a black eye from a cut. She states she wears something around the waist that has a battery pack, to help with healing of her back and that the battery will stop in 4 months. She reports no precautions or restrictions by her MD, but that she is supposed to take it easy. She feels her balance is not good and she needs a walking stick to walk to the mailbox. Current she complains of back pain most noticeable when doing dishes. She requires the use of railing going down stairs (on the right) and when going up stairs she uses the rail (on left) due to back pain. Developmental History Developmental History Pt reports: L5-S1 left amanda-laminectomy & L4-5 TLIF w/posterior instrumentation - 12/02/2017. 2nd surgery, L side, same surgery, one level lower - 12/2018. Treatment Goals Patient/Caregiver Goals Pt goal: *to strengthening legs to do more walking, walk down the street. Was able to walk down street last summer (10-15' walk). *to improve balance to make it safe getting up in the night. * to improve balance to feel safe vacuuming, has to rest frequently. * to improve activity tolerance to minimize the assist of spouse in doing laundry (spouse currently takes clothes out of washer and into dryer & carries laundry to sofa). Prior Functional Status Baseline Function- ADL's Independent Baseline Function- Mobility Independent Baseline Function- Gait Walked w/o assistive device to walk to mailbox. Walked around house, 13' Baseline Function- Recreation/Hobbies Couldn't garden last year because of back pain. Baseline Function- Other Lives with spouse. Current Functional Impairments (Reported) Functional Limitations- ADL's Independent. Functional Limitations- Mobility/Gait Difficulty walking to mailbox and back. Unable to walk around house. Functional Limitations- Recreation/ Limited in being able to Hobbies gardening. Personal Factors Other Personal Factors That May Effect Pt reported Lumbar surgery x 2 Therapy/Recovery . Per record review: Osteoporosis, hx of closed wedge compression fx of T7 and closed rib fx from fall lumbar spondylosis, vascular caludication, HTN, ectopic atrial rhythm PT-OP-C Subjective Start: 03/29/19 08:20 Freq: Status: Active Protocol: Document 04/09/19 10:31 SP (Rec: 04/09/19 11:32 SP [id number]) OP-PT Subjective Patient Comments Patient Comments Pt. reports no pain. PT-OP-E Functional Tests Start: 03/29/19 08:20 Freq: Status: Active Protocol: Document 03/29/19 12:48 LRN (Rec: 04/01/19 14:43 LRN [id number]) Functional Tests Timed Up and Go (TUG) Score 13.3 Comments No assistive device TUG Impairment Rating 40 to <60% Impaired (Score 14- 15) PT-OP-G Mobility & Gait Start: 03/29/19 08:20 Freq: Status: Active Protocol: Document 03/29/19 12:48 LRN (Rec: 04/01/19 14:43 LRN [id number]) Stair Climbing Evaluation Devices Stair Climbing Assistive Devices Left Railing,Right Railing Technique/Endurance Stair Climbing Direction Ascend and Descend Stair Climbing Technique Step Over Step Number of Steps Climbed 4 Stair Climbing Set # Repetitions (reps) 1 Comments Stair Climbing Comments Pt does a quick loading supervisor onto R LE when ascending steps with L rail, and ER's legs when descending steps using R railing. PT-OP-J Posture/Palpation/Skin Start: 03/29/19 08:20 Freq: Status: Active Protocol: Document 03/29/19 12:48 LRN (Rec: 04/01/19 14:43 LRN [id number]) Posture Evaluation Position Standing Evaluation View All positions Head/C-Spine Posture Forward Head T-Spine Posture Increased Kyphosis L-Spine Posture Rotation Right,Decreased Lordosis,Shifted Left Scapula Posture (L) Elevated Pelvis Posture (L) PSIS Posterior Knee Posture (L) Genu Varus,(R) Genu Varus PT-OP-K Range of Motion Start: 03/29/19 08:20 Freq: Status: Active Protocol: Document 03/29/19 12:48 LRN (Rec: 04/01/19 14:43 LRN [id number]) Lumbar Spine Range of Motion Lumbar Spine Active Testing Position Standing Flexion 53 Extension 8 Rotation Left 20 Rotation Right 20 Lateral Flexion Left 8 Lateral Flexion Right 5 Comments Rotation is approximation. Hip Goniometric Range of Motion Hip Left Testing Position Supine Straight Leg Raise 85 Extension 10 Abduction 30 Internal Rotation 45 External Rotation 60 Right Testing Position Supine Straight Leg Raise 80 Extension 5 Abduction 35 Internal Rotation 50 External Rotation 65 PT-OP-M Strength Start: 03/29/19 08:20 Freq: Status: Active Protocol: Document 03/29/19 12:48 LRN (Rec: 04/01/19 14:43 LRN [id number]) Hip Strength Hip Manual Muscle Testing Right Flexion (L2) 3 Fair Extension (S1) 2- Poor- Abduction 3 Fair Adduction 3- Fair- External Rotation 5 Normal Internal Rotation 3 Fair Left Flexion (L2) 3 Fair Extension (S1) 2- Poor- Abduction 3- Fair- Adduction 2 Poor External Rotation 3 Fair Internal Rotation 3 Fair Ankle/Foot Strength Ankle and Foot Manual Muscle Testing Right Inversion 3 Fair Eversion (S1) 3 Fair Comments Ankle PF/DF is WNL Left Inversion 3 Fair Eversion (S1) 3 Fair Comments Ankle PF/DF is WNL PT-OP-Q Treatments Start: 03/29/19 08:20 Freq: Status: Active Protocol: Document 04/09/19 10:31 SP (Rec: 04/09/19 11:32 SP [id number]) Cardio Equipment Upper Body Ergometer (UBE) Duration (Minutes) 1 Other tried 120 speed, to hard so stopped Bicycle (Upright) Duration (Minutes) 3 Resistance 1 Seat Position min (lowest can go) Therapeutic Exercises Supine Exercises SLR Supine Exercise Name SLR Side bilateral Reps/Minutes 15 x 2 Comments slow pacing muscular control, PPT awareness, ankle neutral ( decrease PF) Prone Exercises prone on elbows Prone Exercise Name flat prone and up on elbows Comments did not prone and up on elbows approx 3 sec- stopped Sidelying Exercises Hip AB Sidelying Exercise Name Hip AB Side bilateral Reps/Minutes 15 x 2 Comments Did not tolerated, so stoped Sitting Exercises fig 4 Sitting Exercise Name Hip IR/ER stretch Side bilateral Reps/Minutes 30 x2 Hip abd Side bilateral Resistance lvl 1 TB Reps/Minutes 2x5 Standing Exercises Ts ext Standing Exercise Name elbow wall walk Reps/Minutes x5 Comments better modification than provide, core engagement awareness sit to stands Reps/Minutes x3 Comments hands on lap, cued hip abd knees with toes PT-OP-T Assessment and Plan Start: 03/29/19 08:20 Freq: Status: Active Protocol: Document 04/09/19 10:31 SP (Rec: 04/09/19 11:32 SP [id number]) Physical Therapy Assessment Goals Five Impairment Lacks appropriate self care HEP Longterm Goal (LTG) Patient will be independent in an appropriate self care HEP. LTG Duration 07/27/19 (04/05/19: Progressing) Four Impairment Impaired functional ability due to limited trunk mobility and SLS ability. 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 STG Duration 06/11/19 Overhead Garage Door Hanger Goal (LTG) Pt will be improve SLS ability from 0-1 sec to 10 secs bilaterally, with pt able to walk and carry light loads of laundry without confident stability and without onset of back pain greater than 2/10. LTG Duration 07/27/19 Three Impairment Increased risk of falling per TUG score 13.30 sec's (20<40% impaired) Longterm Goal (LTG) Pt will decrease risk of falling per TUG score of 11-10 secs or less. LTG Duration 07/27/19 Two Impairment Impaired walking tolerance (pt only walking in home) Overhead Garage Door Hanger Goal (LTG) Patient will ambulate down her street (10') with no increase in low back symptoms. LTG Duration 07/27/19 One Impairment Low back Oswetry impaiment scale of 28% impairment Overhead Garage Door Hanger Goal (LTG) Patient will have Low back Oswestry results of < 10% impairment LTG Duration 07/27/19 Assessment Summary Assessment Pt tolerated 3.5 min upright bike but stated didn't tolerated hard seat. Try treadmill next tx. HEP review supine and side. Pt did not tolerated hip abd sidelying so modified supine fall out, did not tolerate prone so modified TS ext elbow wall walk with + feedback. Good tolerance to hip abd TB and hands on lap sit to stands, TS rotation. No pain with these activites so added HEP. Physical Therapy Plan Frequency and Duration Frequency of Treatment 2x/Week Plan of Care Start Date 03/29/19 Plan of Care End Date 07/27/19 Therapeutic Interventions Therapeutic Interventions Balance Training,Gait Training ,Home Exercise Program,Manual Therapy,Neuromuscular Re- education,Patient/Caregiver Education,Self-Care/Home Management,Soft Tissue Mobilization,Taping, Therapeutic Activities Modalities Cold Pack/Ice Massage,Hot Packs Next Visit Focus/Plan Next Note Type Treatment Note Next Visit Plan Assess response to last tx: knee see assessment. Continue PT POC: Progress TM for aerobic conditioning as tolerated, review active table ex (hip), add ankle, trunk strengthening, f/b STM of lumbar spine. Balance training, end with over Cryotherapy if needed.
--- NOTE | 2019-04-13 11:20 | PT.OTN ---
Current Diagnoses Other spondylosis with radiculopathy, lumbar region (04/13/19) Spinal stenosis, lumbar region with neurogenic claudication (04/13/19) Muscle weakness (generalized) (04/13/19) Other abnormalities of gait and mobility (04/13/19) Physical Therapy Treatment Note PT-OP-A Visit Information Start: 03/29/19 08:20 Freq: Status: Active Protocol: Document 04/13/19 10:40 SP (Rec: 04/13/19 12:05 SP [id number]) Out-Patient Physical Therapy Visit Information Visit Information Visit Type Treatment Note Visit Note SENIOR QA AUTOMATION ENGINEER brought patient back 10 min late. Visit Start Time 10:40 Visit Stop Time 11:20 Total Visit Minutes 40 Visit Number 4 Number of SENIOR QA AUTOMATION ENGINEER Visits 2 PT-OP-B Current Condition Start: 03/29/19 08:20 Freq: Status: Active Protocol: Document 03/29/19 12:48 LRN (Rec: 03/29/19 13:42 LRN [id number]) Current Condition History of Current Condition Onset Date 2017 Current Complaints Legs need strengthening History of Current Condition Pt attends physical therapy for LE strengthening. She states she has had trouble with L sided back pain since 2017 and had her first L5-S1 L sided laminectomy, followed by a 2nd surgery in 2019. She states she fell a yr ago in April when getting up to go to bathroom and ended up with a black eye from a cut. She states she wears something around the waist that has a battery pack, to help with healing of her back and that the battery will stop in 4 months. She reports no precautions or restrictions by her MD, but that she is supposed to take it easy. She feels her balance is not good and she needs a walking stick to walk to the mailbox. Current she complains of back pain most noticeable when doing dishes. She requires the use of railing going down stairs (on the right) and when going up stairs she uses the rail (on left) due to back pain. Developmental History Developmental History Pt reports: L5-S1 left amanda-laminectomy & L4-5 TLIF w/posterior instrumentation - 12/02/2017. 2nd surgery, L side, same surgery, one level lower - 12/2018. Treatment Goals Patient/Caregiver Goals Pt goal: *to strengthening legs to do more walking, walk down the street. Was able to walk down street last summer (10-15' walk). *to improve balance to make it safe getting up in the night. * to improve balance to feel safe vacuuming, has to rest frequently. * to improve activity tolerance to minimize the assist of spouse in doing laundry (spouse currently takes clothes out of washer and into dryer & carries laundry to sofa). Prior Functional Status Baseline Function- ADL's Independent Baseline Function- Mobility Independent Baseline Function- Gait Walked w/o assistive device to walk to mailbox. Walked around house, 13' Baseline Function- Recreation/Hobbies Couldn't garden last year because of back pain. Baseline Function- Other Lives with spouse. Current Functional Impairments (Reported) Functional Limitations- ADL's Independent. Functional Limitations- Mobility/Gait Difficulty walking to mailbox and back. Unable to walk around house. Functional Limitations- Recreation/ Limited in being able to Hobbies gardening. Personal Factors Other Personal Factors That May Effect Pt reported Lumbar surgery x 2 Therapy/Recovery . Per record review: Osteoporosis, hx of closed wedge compression fx of T7 and closed rib fx from fall lumbar spondylosis, vascular caludication, HTN, ectopic atrial rhythm PT-OP-C Subjective Start: 03/29/19 08:20 Freq: Status: Active Protocol: Document 04/13/19 10:40 SP (Rec: 04/13/19 12:05 SP [id number]) OP-PT Subjective Patient Comments Patient Comments Pt reported no pain, compliant with HEP at home. Reported wants to do more standing strength and walking to improve endurance to walk with again and walk on beach near by but not well enough to do at this time. PT-OP-E Functional Tests Start: 03/29/19 08:20 Freq: Status: Active Protocol: Document 03/29/19 12:48 LRN (Rec: 04/01/19 14:43 LRN [id number]) Functional Tests Timed Up and Go (TUG) Score 13.3 Comments No assistive device TUG Impairment Rating 40 to <60% Impaired (Score 14- 15) PT-OP-G Mobility & Gait Start: 03/29/19 08:20 Freq: Status: Active Protocol: Document 03/29/19 12:48 LRN (Rec: 04/01/19 14:43 LRN [id number]) Stair Climbing Evaluation Devices Stair Climbing Assistive Devices Left Railing,Right Railing Technique/Endurance Stair Climbing Direction Ascend and Descend Stair Climbing Technique Step Over Step Number of Steps Climbed 4 Stair Climbing Set # Repetitions (reps) 1 Comments Stair Climbing Comments Pt does a quick tool shaper set up operator onto R LE when ascending steps with L rail, and ER's legs when descending steps using R railing. PT-OP-J Posture/Palpation/Skin Start: 03/29/19 08:20 Freq: Status: Active Protocol: Document 03/29/19 12:48 LRN (Rec: 04/01/19 14:43 LRN [id number]) Posture Evaluation Position Standing Evaluation View All positions Head/C-Spine Posture Forward Head T-Spine Posture Increased Kyphosis L-Spine Posture Rotation Right,Decreased Lordosis,Shifted Left Scapula Posture (L) Elevated Pelvis Posture (L) PSIS Posterior Knee Posture (L) Genu Varus,(R) Genu Varus PT-OP-K Range of Motion Start: 03/29/19 08:20 Freq: Status: Active Protocol: Document 03/29/19 12:48 LRN (Rec: 04/01/19 14:43 LRN [id number]) Lumbar Spine Range of Motion Lumbar Spine Active Testing Position Standing Flexion 53 Extension 8 Rotation Left 20 Rotation Right 20 Lateral Flexion Left 8 Lateral Flexion Right 5 Comments Rotation is approximation. Hip Goniometric Range of Motion Hip Left Testing Position Supine Straight Leg Raise 85 Extension 10 Abduction 30 Internal Rotation 45 External Rotation 60 Right Testing Position Supine Straight Leg Raise 80 Extension 5 Abduction 35 Internal Rotation 50 External Rotation 65 PT-OP-M Strength Start: 03/29/19 08:20 Freq: Status: Active Protocol: Document 03/29/19 12:48 LRN (Rec: 04/01/19 14:43 LRN [id number]) Hip Strength Hip Manual Muscle Testing Right Flexion (L2) 3 Fair Extension (S1) 2- Poor- Abduction 3 Fair Adduction 3- Fair- External Rotation 5 Normal Internal Rotation 3 Fair Left Flexion (L2) 3 Fair Extension (S1) 2- Poor- Abduction 3- Fair- Adduction 2 Poor External Rotation 3 Fair Internal Rotation 3 Fair Ankle/Foot Strength Ankle and Foot Manual Muscle Testing Right Inversion 3 Fair Eversion (S1) 3 Fair Comments Ankle PF/DF is WNL Left Inversion 3 Fair Eversion (S1) 3 Fair Comments Ankle PF/DF is WNL PT-OP-Q Treatments Start: 03/29/19 08:20 Freq: Status: Active Protocol: Document 04/13/19 10:40 SP (Rec: 04/13/19 12:05 SP [id number]) Cardio Equipment Upper Body Ergometer (UBE) Duration (Minutes) 3 RPM 120 Other improved in tolerance to resistance today Treadmill Other for cardio: future tx assess Therapeutic Exercises Supine Exercises SLR Supine Exercise Name SLR Side bilateral Reps/Minutes 13 reps before tires and rest break needed x2 sets Comments slow pacing muscular control, PPT awareness, ankle neutral ( decrease PF) Prone Exercises prone on elbows Prone Exercise Name prone on elbow Comments tolerated well 1 min x2 Hip Ext Prone Exercise Name modified quad isometric on toes Reps/Minutes 5 hold x5, x2 sets Comments tolerated prone laying on hands (no pillow under pelvis need) Sidelying Exercises TS rotation Sidelying Exercise Name head with arm Side bilateral Resistance AROM R and L Reps/Minutes x5 Comments allowable ROM to assist mobility Hip AD Sidelying Exercise Name Hip AD Side bilateral Reps/Minutes 15 x 2 Hip AB Sidelying Exercise Name Hip AB Side bilateral Reps/Minutes 15 x 2 Comments Did not tolerated, so stoped Standing Exercises high knee walk Equipment Used rail contact required Reps/Minutes 20 ft x2 laps foward Comments cued slow pacing, hip hinge forward little to decrease LS ext wiht hip flex band walk Resistance TB #1 Equipment Used rail Reps/Minutes 20 ft x2 laps step ups Equipment Used rail, 4 step Reps/Minutes 10 x2 lead each LE Comments cued slow pacing PT-OP-T Assessment and Plan Start: 03/29/19 08:20 Freq: Status: Active Protocol: Document 04/13/19 10:40 SP (Rec: 04/13/19 12:05 SP [id number]) Physical Therapy Assessment Goals Five Impairment Lacks appropriate self care HEP Cumulative Effects Analyst Goal (LTG) Patient will be independent in an appropriate self care HEP. LTG Duration 07/27/19 (04/05/19: Progressing) Four Impairment Impaired functional ability due to limited trunk mobility and SLS ability. 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 STG Duration 06/11/19 Penitentiary Goal (LTG) Pt will be improve SLS ability from 0-1 sec to 10 secs bilaterally, with pt able to walk and carry light loads of laundry without confident stability and without onset of back pain greater than 2/10. LTG Duration 07/27/19 Three Impairment Increased risk of falling per TUG score 13.30 sec's (20<40% impaired) Penitentiary Goal (LTG) Pt will decrease risk of falling per TUG score of 11-10 secs or less. LTG Duration 07/27/19 Two Impairment Impaired walking tolerance (pt only walking in home) Cumulative Effects Analyst Goal (LTG) Patient will ambulate down her street (10') with no increase in low back symptoms. LTG Duration 07/27/19 One Impairment Low back Oswetry impaiment scale of 28% impairment Penitentiary Goal (LTG) Patient will have Low back Oswestry results of < 10% impairment LTG Duration 07/27/19 Assessment Summary Assessment Pt tolerated full 3 min 1.5 min f/b 120 RPM UBE but assess 6MWT next tx for baseline endurance to be ableto objectively see progress gait endurance for self walks with and work toward self goal walking on beach near her house. Reviewed HEP supine, sidelying core strengthening with minimal cuing for proper side position and slow pacing throughout for core facilitation with good demonstration self corrections . Added standing ther ex to work toward LE strengthening and progress balance activities can do at home toward self goal to return to walking further with and onto beach near home again . At this time needs contact support on rail with resistedside step, high knee stepping and step ups for safety with good response of glut tiring soreness and work out overall. Physical Therapy Plan Frequency and Duration Frequency of Treatment 2x/Week Plan of Care Start Date 03/29/19 Plan of Care End Date 07/27/19 Therapeutic Interventions Therapeutic Interventions Balance Training,Gait Training ,Home Exercise Program,Manual Therapy,Neuromuscular Re- education,Patient/Caregiver Education,Self-Care/Home Management,Soft Tissue Mobilization,Taping, Therapeutic Activities Modalities Cold Pack/Ice Massage,Hot Packs Next Visit Focus/Plan Next Note Type Treatment Note Next Visit Plan Assess response to last tx: standing band walk, high knee stepping, step ups at rail and modified prone quad set on toes for allowable hip ext range against gravity wiht decrease LS pain experienced with PT LE ext. Next trial quadruped LE ext? Continue PT POC: Progress TM for aerobic conditioning as tolerated, review active table ex (hip), add ankle, trunk strengthening, f/b STM of lumbar spine. Balance training, end with MH over Cryotherapy if needed.
--- NOTE | 2019-08-06 18:32 | PT.OPDS ---
Current Diagnoses Other spondylosis with radiculopathy, lumbar region (04/17/19) Spinal stenosis, lumbar region with neurogenic claudication (04/17/19) Muscle weakness (generalized) (04/17/19) Other abnormalities of gait and mobility (04/17/19) Visit Care Team Role Provider Type Miguel Ruano MD Primary Care Provider Physician Specialty: Internal Medicine Address: [address] [place] [address], [facility] [address], [place], [address] Email: [email or web address] Sina Jacques MD Attending Provider Physician Referring Provider Specialty: Orthopedic Surgery Address: [address] [place] [address], [id number] Email: [email or web address] Visit Number Visit Number 5 Discharge Summary PT-OP-B Current Condition Start: 03/29/19 08:20 Freq: Status: Active Protocol: Document 03/29/19 12:48 LRN (Rec: 03/29/19 13:42 LRN [id number]) Current Condition History of Current Condition Onset Date 2017 Current Complaints Legs need strengthening History of Current Condition Pt attends physical therapy for LE strengthening. She states she has had trouble with L sided back pain since 2018 and had her first L5-S1 L sided laminectomy, followed by a 2nd surgery in 2019. She states she fell a yr ago in April when getting up to go to bathroom and ended up with a black eye from a cut. She states she wears something around the waist that has a battery pack, to help with healing of her back and that the battery will stop in 4 months. She reports no precautions or restrictions by her MD, but that she is supposed to take it easy. She feels her balance is not good and she needs a walking stick to walk to the mailbox. Current she complains of back pain most noticeable when doing dishes. She requires the use of railing going down stairs (on the right) and when going up stairs she uses the rail (on left) due to back pain. Developmental History Developmental History Pt reports: L5-S1 left amanda-laminectomy & L4-5 TLIF w/posterior instrumentation - 12/02/2017. 2nd surgery, L side, same surgery, one level lower - 12/2018. Treatment Goals Patient/Caregiver Goals Pt goal: *to strengthening legs to do more walking, walk down the street. Was able to walk down street last summer (10-15' walk). *to improve balance to make it safe getting up in the night. * to improve balance to feel safe vacuuming, has to rest frequently. * to improve activity tolerance to minimize the assist of spouse in doing laundry (spouse currently takes clothes out of washer and into dryer & carries laundry to sofa). Prior Functional Status Baseline Function- ADL's Independent Baseline Function- Mobility Independent Baseline Function- Gait Walked w/o assistive device to walk to mailbox. Walked around house, 13' Baseline Function- Recreation/Hobbies Couldn't garden last year because of back pain. Baseline Function- Other Lives with spouse. Current Functional Impairments (Reported) Functional Limitations- ADL's Independent. Functional Limitations- Mobility/Gait Difficulty walking to mailbox and back. Unable to walk around house. Functional Limitations- Recreation/ Limited in being able to Hobbies gardening. Personal Factors Other Personal Factors That May Effect Pt reported Lumbar surgery x 2 Therapy/Recovery . Per record review: Osteoporosis, hx of closed wedge compression fx of T7 and closed rib fx from fall lumbar spondylosis, vascular caludication, HTN, ectopic atrial rhythm PT-OP-C Subjective Start: 03/29/19 08:20 Freq: Status: Active Protocol: Document 04/17/19 10:34 LRN (Rec: 04/17/19 12:02 LRN [id number]) OP-PT Subjective Patient Comments Patient Comments States she had terrible back pain the day after last therapy for 2 days, a little better yesterday and today. PT-OP-E Functional Tests Start: 03/29/19 08:20 Freq: Status: Active Protocol: Document 04/17/19 10:34 LRN (Rec: 04/17/19 12:02 LRN [id number]) Functional Tests 6 Minute Walk Test Distance 822.4' Device Used none Comments 1' rest after 3.5' walk, finished walking 1.5' to end. 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 PT-OP-J Posture/Palpation/Skin Start: 03/29/19 08:20 Freq: Status: Active Protocol: Document 03/29/19 12:48 LRN (Rec: 04/01/19 14:43 LRN [id number]) Posture Evaluation Position Standing Evaluation View All positions Head/C-Spine Posture Forward Head T-Spine Posture Increased Kyphosis L-Spine Posture Rotation Right,Decreased Lordosis,Shifted Left Scapula Posture (L) Elevated Pelvis Posture (L) PSIS Posterior Knee Posture (L) Genu Varus,(R) Genu Varus PT-OP-K Range of Motion Start: 03/29/19 08:20 Freq: Status: Active Protocol: Document 03/29/19 12:48 LRN (Rec: 04/01/19 14:43 LRN [id number]) Lumbar Spine Range of Motion Lumbar Spine Active Testing Position Standing Flexion 53 Extension 8 Rotation Left 20 Rotation Right 20 Lateral Flexion Left 8 Lateral Flexion Right 5 Comments Rotation is approximation. Hip Goniometric Range of Motion Hip Left Testing Position Supine Straight Leg Raise 85 Extension 10 Abduction 30 Internal Rotation 45 External Rotation 60 Right Testing Position Supine Straight Leg Raise 80 Extension 5 Abduction 35 Internal Rotation 50 External Rotation 65 PT-OP-M Strength Start: 03/29/19 08:20 Freq: Status: Active Protocol: Document 03/29/19 12:48 LRN (Rec: 04/01/19 14:43 LRN [id number]) Hip Strength Hip Manual Muscle Testing Right Flexion (L2) 3 Fair Extension (S1) 2- Poor- Abduction 3 Fair Adduction 3- Fair- External Rotation 5 Normal Internal Rotation 3 Fair Left Flexion (L2) 3 Fair Extension (S1) 2- Poor- Abduction 3- Fair- Adduction 2 Poor External Rotation 3 Fair Internal Rotation 3 Fair Ankle/Foot Strength Ankle and Foot Manual Muscle Testing Right Inversion 3 Fair Eversion (S1) 3 Fair Comments Ankle PF/DF is WNL Left Inversion 3 Fair Eversion (S1) 3 Fair Comments Ankle PF/DF is WNL PT-OP-T Assessment and Plan Start: 03/29/19 08:20 Freq: Status: Active Protocol: Document 08/06/19 18:25 LRN (Rec: 08/06/19 18:32 LRN [id number]) Physical Therapy Assessment Goals Five Impairment Lacks appropriate self care HEP Director Of Blood Goal (LTG) Patient will be independent in an appropriate self care HEP. (04/05/19: Progressing) LTG Duration 07/27/19 (08/06/19: Pt unavailable for final assessment) Four Impairment Impaired functional ability due to limited trunk mobility and SLS ability. 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 STG Duration 06/11/19 (08/06/19: Pt unavailable for final assessment) Mcc Goal (LTG) Pt will be improve SLS ability from 0-1 sec to 10 secs bilaterally, with pt able to walk and carry light loads of laundry without confident stability and without onset of back pain greater than 2/10. LTG Duration 07/27/19 (08/06/19: Pt unavailable for final assessment) Three Impairment Increased risk of falling per TUG score 13.30 sec's (20<40% impaired) Director Of Blood Goal (LTG) Pt will decrease risk of falling per TUG score of 11-10 secs or less. LTG Duration 07/27/19 (08/06/19: Pt unavailable for final assessment) Two Impairment Impaired walking tolerance (pt only walking in home) Director Of Blood Goal (LTG) Patient will ambulate down her street (10') with no increase in low back symptoms. LTG Duration 07/27/19 (08/06/19: Pt unavailable for final assessment) One Impairment Low back Oswetry impaiment scale of 28% impairment Mcc Goal (LTG) Patient will have Low back Oswestry results of < 10% impairment LTG Duration 07/27/19 (08/06/19: Pt unavailable for final assessment) Assessment Summary Assessment Pt was seen for her initial eval and 4 therapy visits before her rehabilitation was interrupted due to COVID 19 pandemic. Per message on she indicated she may return at a later time but didn't want to for awhile due to the COVID pandemic. The pt would benefit from completing her low back rehabilitation. The pt was unavailable for final assessments. Physical Therapy Plan Discharge Physical Therapy Discharge Reasons Patient Request Discharge Comments Pt requested DC per message 07/24/19. Pt reported may return later but won't be for awhile due to COVID 19 pandemic concerns.
== END 2019-08-08 10:07 ==
LOC: PHYS 10:30
PROVIDERS: PCP Internal Medicine; Referring Provider Orthopaedic Surgery Orthopaedic Surgery of the Spine; Visit Provider Orthopaedic Surgery Orthopaedic Surgery of the Spine
DX: M48.062 Spinal stenosis, lumbar region with neurogenic claudication (principal); M47.26 Other spondylosis with radiculopathy, lumbar region; M62.81 Muscle weakness (generalized); R26.89 Other abnormalities of gait and mobility
CPT/HCPCS: 97110; 97162; 97535

== ENCOUNTER → 2019-06-01 10:04 | Outpatient (CLI) | payer MEDICARE, OTHER, SELFPAY ==
[2018-11-23 15:12] VITALS: BMI 21.0
--- NOTE | 2019-06-01 | DI.CT.S_ITS ---
PROCEDURE: CT LUMBAR SPINE WO CON INDICATIONS: Arthrodesis status TECHNIQUE: Noncontrast 3 mm thick sections acquired from the T12 level to the sacrum. Sagittal and coronal reformats were constructed. For radiation dose reduction, the following was used: automated exposure control. COMPARISON: [facility], MR, MR LUMBAR SPINE WO CON, 09/15/2017, 7:56. [facility], MR, L-SPINE WITHOUT CONTRAST, 01/16/2016, 10:30. [facility], MR, L-SPINE WITHOUT CONTRAST, 10/23/2010, 7:43. [facility], CT, CT ABDOMEN PELVIS W CON, 05/11/2018, 7:49. [facility], CR, XR LUMBAR SPINE 2-3V, 11/23/2018, 11:06. FINDINGS: Image quality: Excellent. Bones: No acute vertebral body compression fractures. There is a remote central compression deformity seen at T12, with an associated Schmorl's node, with 30% loss of height centrally. No suspicious lytic or blastic bony lesions. Central spinal caliber is of normal overall caliber. No pars defects. Postoperative changes are seen, with bilateral pedicle screws at the L4, L5, and S1 levels. The screws appear well placed. Vertical fixation rods are seen. Disc spacers are seen at L4-L5 and L5-S1. No findings of hardware failure or hardware loosening are seen. Minimal retrolisthesis is seen at L1-L2, L2-L3, and L3-L4. T12-L1: No significant abnormality is seen. L1-L2: Loss of disc height is seen. Calcification can be seen within the disc level itself, as on series 4 image 26. Moderate disc bulge is seen, with a central disc protrusion, with associated focal calcification/ossification of the posterior aspect of the annulus fibrosis, as on series 3 image 26. Moderate bilateral neural foraminal narrowing is seen. Moderate to severe central canal narrowing is seen. When comparison is made with the prior examination, these findings are similar. L2-L3: Moderate to severe loss of disc height is seen. Vacuum disc phenomenon is seen at this level. Endplate irregularity and sclerosis can be seen. Posteriorly projected endplate osteophytes are seen. Moderate disc bulge is seen, which is eccentric to the right. There is at least moderate right-sided and moderate left-sided neural foraminal narrowing seen. At least moderate central canal narrowing is seen. When comparison is made with the prior examination, these findings are similar. L3-L4: The disc height is relatively well-preserved. Moderate generalized disc bulge is seen is seen. There is moderate to severe bilateral neural foraminal narrowing seen, left worse than right. Moderate to severe central canal narrowing is seen. These degenerative changes appear similar to 2018. L4-L5: Postoperative changes are seen at this level. Moderate generalized disc bulge is seen. There is at least moderate left-sided and moderate right-sided neural foraminal narrowing seen. No significant central canal narrowing is seen. The degenerative changes are improved compared to the preoperative 2018 MRI. L5-S1: Postoperative changes are seen at this level. There is at least moderate right-sided and mild left-sided neural foraminal narrowing seen. No significant central canal narrowing seen. Improvement can be seen compared to 2018. Soft tissues: No retroperitoneal masses or hematomas. Visualized aorta is normal in caliber. Dense atherosclerotic calcification can be seen. Proximal bilateral common iliac artery stents are seen. Diverticulosis is seen, without findings of active diverticulitis. IMPRESSION: Lumbosacral postoperative hardware, without findings of hardware failure or hardware loosening. Improvement in the degrees of degenerative change within the postoperative region compared to the preoperative 2018 MRI examination. Otherwise, stable degenerative change. Incidental note is made of: Remote T12 central compression deformity Bilateral proximal common iliac artery stents Diverticulosis, without findings of active diverticulitis. Dictated by: Zi Hemphill M.D. on 06/01/2019 at 10:05 Approved by: Zi Hemphill M.D. on 06/01/2019 at 10:14
== END ==
PROVIDERS: PCP Internal Medicine; Referring Provider Orthopaedic Surgery Orthopaedic Surgery of the Spine; Visit Provider Orthopaedic Surgery Orthopaedic Surgery of the Spine
DX: M51.26 Other intervertebral disc displacement, lumbar region (principal); M48.07 Spinal stenosis, lumbosacral region; M48.061 Spinal stenosis, lumbar region without neurogenic claudication; K57.90 Diverticulosis of intestine, part unspecified, without perforation or abscess without bleeding; Z98.1 Arthrodesis status
CPT/HCPCS: 72131

== ENCOUNTER → 2020-03-19 14:07 | Outpatient (CLI) | payer MEDICARE, OTHER, SELFPAY ==
[2018-11-23 15:12] VITALS: BMI 21.0
[2020-03-19] MEDS: COVID-19 VACC #1, MRNA(MOD) 100 MCG/0.5 ML VIAL IM (14:10)
== END ==
PROVIDERS: PCP Internal Medicine; Visit Provider Internal Medicine
DX: Z23 Encounter for immunization (principal)
CPT/HCPCS: 0011A; 91301

== ENCOUNTER → 2020-04-17 14:04 | Outpatient (CLI) | payer MEDICARE, OTHER, SELFPAY ==
[2018-11-23 15:12] VITALS: BMI 21.0
[2020-04-17] MEDS: COVID-19 VACC #2, MRNA(MOD) 100 MCG/0.5 ML VIAL IM (14:15)
== END ==
PROVIDERS: PCP Internal Medicine; Visit Provider Internal Medicine
DX: Z23 Encounter for immunization (principal)
CPT/HCPCS: 0012A; 91301

== ENCOUNTER 2020-07-25 10:49 | Emergency (ER) | payer OTHER, MEDICARE, SELFPAY ==
[2018-11-23 15:12] VITALS: BMI 21.0
[2020-07-25 10:59] VITALS: BP 118/58; PULSE 103; RESP 16; TEMP 36.6; O2SAT 95; BMI 21.0
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
[2020-07-25] MEDS: ACETAMINOPHEN 325 MG TABLET 975 MG PO (11:33)
[2020-07-25 12:40] VITALS: BP 140/63; PULSE 76; RESP 16; O2SAT 98
== END 2020-07-25 12:41 | disposition home or self-care (01) ==
PROVIDERS: Emergency Provider Emergency Medicine; PCP Internal Medicine
DX: M54.5 Low back pain (principal); V89.2XXA Person injured in unspecified motor-vehicle accident, traffic, initial encounter
CPT/HCPCS: 71046; 72100; 99283

== ENCOUNTER → 2021-01-01 08:26 | Outpatient (CLI) | payer MEDICARE, OTHER, SELFPAY ==
[2018-11-23 15:12] VITALS: BMI 21.0
[2021-01-01 09:56] LABS: Add Manual Diff / Slide Review NO; Basophils Absolute Auto 0 /uL (0-100); Basophils Percent Auto 0.8 % (0-2); Eosinophils Absolute Auto 100 /uL (0-450); Eosinophils Percent Auto 2.6 % (2-4); Hematocrit 38.6 % (36-46); Hemoglobin 13.3 g/dL (12.0-16.0); Lymphocytes Absolute Auto 1700 /uL (1100-4500); Lymphocytes Percent Auto 34.5 % (25-40); Mean Corpuscular HGB Conc 34.6 % (30-36); Mean Corpuscular Hemoglobin 41.3 PG (26-34); Mean Corpuscular Volume 119.7 fL (80-100); Monocytes Absolute Auto 400 /uL (0-900); Monocytes Percent Auto 8.5 % (3-14); Neutrophils Absolute Auto 2700 /uL (1500-7000); Neutrophils Percent Auto 53.6 % (50-75); Platelet Count 223 X10^3/uL (150-400); Red Blood Cell Count 3.23 X10^6/uL (4.0-5.2); Red Cell Distribution Width 14.4 % (11.6-14.8); White Blood Cell Count 5.1 X10^3/uL (4.5-11.0)
[2021-01-01 10:30] LABS: Alanine Aminotransferase 20 IU/L (<35); Albumin 4.1 g/dL (3.5-5.0); Albumin Globulin Ratio 1.5 (1.0-2.8); Alkaline Phosphatase 87 U/L (38-126); Aspartate Aminotransferase 35 IU/L (14-36); BUN Creatinine Ratio 21.1 (6-22); Bilirubin Total 1.8 mg/dL (0.2-1.3); Blood Urea Nitrogen 15 mg/dL (7-17); Calcium 9.6 mg/dL (8.4-10.2); Carbon Dioxide 26 mmol/L (22-32); Chloride 103 mmol/L (98-107); Cholesterol 154 mg/dL (140-199); Estimated Glomerular Filt Rate > 60.0 mL/min (>60); Globulin 2.7 g/dL (1.7-4.1); Glucose 99 mg/dL (80-110); HEMOLYSIS < 15 (0-50); Potassium 4.2 mmol/L (3.4-5.1); Sodium 136 mmol/L (137-145); Total Protein 6.8 g/dL (6.3-8.2); Triglycerides 97 mg/dL (35-150)
[2021-01-01 10:38] LABS: HDL Cholesterol 106 mg/dL (40-60); LDL Cholesterol Calculated 29 mg/dL (<100)
[2021-01-01 10:47] LABS: Macrocytosis 2+
== END ==
PROVIDERS: PCP Internal Medicine; Referring Provider Internal Medicine; Visit Provider Internal Medicine
DX: I10 Essential (primary) hypertension (principal); E78.2 Mixed hyperlipidemia; I73.9 Peripheral vascular disease, unspecified
CPT/HCPCS: 36415; 80053; 80061; 85025

== ENCOUNTER → 2021-05-11 11:39 | Outpatient (CLI) | payer MEDICARE, OTHER, SELFPAY ==
[2018-11-23 15:12] VITALS: BMI 21.0
--- NOTE | 2021-05-11 | DI.CT.S_ITS ---
PROCEDURE: CT LUMBAR SPINE WO CON INDICATIONS: Low back pain, unspecified TECHNIQUE: Noncontrast 3 mm thick sections acquired from the T12 level to the sacrum. Sagittal and coronal reformats were constructed. For radiation dose reduction, the following was used: automated exposure control. COMPARISON: [facility], CT, CT LUMBAR SPINE WO CON, 06/01/2019, 10:07. FINDINGS: Image quality: Excellent. Bones: There is normal bony alignment. No acute vertebral body compression fractures. There is new severe chronic wedging of T12 with roughly 6 mm of retropulsion at the inferior T12 level. Posterior fusion hardware and interbody device placement at L4-S1 has been performed, as before. No suspicious lytic or blastic bony lesions. No pars defects. Multilevel disc space narrowing and endplate osteophyte formation as well as facet hypertrophy throughout the lumbar spine. There is mild to moderate canal stenosis at T12-L1, predominantly secondary to retropulsion. There is a central protrusion at L1-L2, causing mild to moderate canal stenosis. Mild canal stenosis throughout the remainder of the lumbar spine. Severe foraminal stenoses are present bilaterally at T12-L1. Moderate foraminal stenosis are present at L1-L2, L2-L3, L3-L4, L4-L5, and L5-S1 bilaterally. Soft tissues: No retroperitoneal masses or hematomas. Visualized aorta is normal in caliber. IMPRESSION: 1. Multilevel degenerative disc and facet disease. 2. Multilevel canal stenoses, worst at T12-L1 and L1-L2 as described above. 3. Multilevel foraminal stenoses, worst at T12-L1 where there are severe foraminal stenosis. 4. Severe chronic T12 compression fracture, new since the prior examination. 5. Postsurgical sequelae. Dictated by: Oscar Foreman M.D. on 05/11/2021 at 13:23 Approved by: Oscar Foreman M.D. on 05/11/2021 at 16:58
== END ==
PROVIDERS: PCP Internal Medicine; Referring Provider Orthopaedic Surgery Orthopaedic Surgery of the Spine; Visit Provider Orthopaedic Surgery Orthopaedic Surgery of the Spine
DX: M51.36 Other intervertebral disc degeneration, lumbar region (principal); M48.05 Spinal stenosis, thoracolumbar region; M48.061 Spinal stenosis, lumbar region without neurogenic claudication; M48.07 Spinal stenosis, lumbosacral region; M48.54XA Collapsed vertebra, not elsewhere classified, thoracic region, initial encounter for fracture; M54.50 Low back pain, unspecified; Z98.1 Arthrodesis status
CPT/HCPCS: 72131

== ENCOUNTER 2021-05-23 10:25 | Emergency (ER) | payer MEDICARE, OTHER, SELFPAY ==
[2018-11-23 15:12] VITALS: BMI 21.0
[2021-05-23] VITALS (13 sets, daily range): BP systolic 98–154; BP diastolic 59–95; PULSE 84–100; RESP 16–33; TEMP 36.5; O2SAT 90–96; BMI 18.3
--- NOTE | 2021-05-23 10:26 | DI.RAD.S_ITS ---
PROCEDURE: XR HIP W PEL IF DONE RT 2V INDICATIONS: fall TECHNIQUE: AP pelvis with lateral view(s) of the right hip(s). COMPARISON: [facility], CT, CT LUMBAR SPINE WO CON, 05/11/2021, 11:45. [facility], CR, XR CHEST 1V, 05/23/2021, 10:19. [facility], CR, [id number] W PEL IF PERFORMED, 05/12/2017, 14:30. FINDINGS: Bones: No fractures or dislocations. Pelvic ring appears intact. No suspicious bony lesions. Note is made of osteitis pubis, which is not considered to be frankly abnormal in a woman of this age. Lumbosacral fixation hardware is seen, which appears intact. There is moderate superior joint space narrowing seen of both hips, with associated remodeling changes with subchondral sclerosis and osteophyte formation. Soft tissues: The visualized bowel gas pattern is normal. No suspicious soft tissue calcifications. IMPRESSION: No displaced fracture is seen on these plain films. If there is point tenderness (or other clinical suspicion for a fracture not seen on these images) then a dedicated CT could be considered for further evaluation, if clinically appropriate. Moderate bilateral hip degenerative change. Lumbosacral fixation hardware. Dictated by: Zi Hemphill M.D. on 05/23/2021 at 9:50 Approved by: Zi Hemphill M.D. on 05/23/2021 at 9:51
--- NOTE | 2021-05-23 10:26 | DI.RAD.S_ITS ---
PROCEDURE: XR CHEST 1V INDICATIONS: fall TECHNIQUE: One view of the chest was acquired. COMPARISON: [facility], CT, CT CHEST ABD PEL W CON, 05/09/2018, 17:20. [facility], CR, XR CHEST 2V, 07/25/2020, 11:34. FINDINGS: Surgical changes and devices: None. Lungs and pleura: No focal infiltrates are seen. Calcified granulomas are again seen. No pleural effusions or pneumothorax. Mediastinum: The cardiac contours are within normal limits. The aorta demonstrates calcification and tortuosity. Bones and chest wall: No displaced rib fracture can be seen. No suspicious bony lesions. Age-appropriate bony degenerative changes are seen. Overlying soft tissues appear unremarkable. IMPRESSION: No displaced rib fracture or pneumothorax. If there is strong clinical concern for chest trauma in this patient, please consider a follow-up chest CT with IV contrast for further evaluation. Prior granulomatous exposure. Dictated by: Zi Hemphill M.D. on 05/23/2021 at 9:48 Approved by: Zi Hemphill M.D. on 05/23/2021 at 9:49
--- NOTE | 2021-05-23 10:31 | ED.FALL ---
HPI - Fall General Chief Complaint: Fall Stated Complaint: GLF x2, hip pain Time Seen by Provider: 05/23/21 10:26 History of Present Illness HPI Narrative: Patient is a 80-year-old female history of hyperlipidemia, chronic back pain presenting today after fall. She actually fell twice once last night while getting out of bed her helped her back into bed when she fell again this morning. No head injury or loss of consciousness. No neck pain. She is complaining of right hip pain. Unable to stand. She denies chest pain palpitations abdominal pain nausea or vomiting. She received 10 mg of ketamine 50 mcg of fentanyl and 8 of Zofran with EMS Related Data Home Medications Medication Instructions Recorded Confirmed multivitamin 1 tab PO DAILY 05/30/18 01/01/21 aspirin 81 mg tablet,delayed 81 mg PO DAILY 01/01/21 01/01/21 release Previous Rx's Medication Instructions Recorded acetaminophen 500 mg tablet 500 mg PO Q4H PRN #60 tab 11/25/18 (Tylenol Extra Strength) atorvastatin 40 mg tablet 40 mg PO DAILY #90 tab 05/07/21 Allergies Allergy/AdvReac Type Severity Reaction Status Date / Time No Known Drug Allergies Allergy Verified 05/23/21 11:21 Review of Systems Review of Systems Narrative: GENERAL: Denies chills, fatigue, malaise, fever, sweats, travel HEENT: Denies sinus pain, ear pain, sore throat, difficulty swallowing, neck pain RESPIRATORY: Denies dyspnea, cough, wheezing, hemoptysis, sputum. CARDIOVASCULAR: Denies chest pain, palpitations, orthopnea, edema GASTROINTESTINAL: Denies nausea, vomiting, abdominal pain, diarrhea, constipation, melena. : Denies dysuria, frequency, incontinence, hematuria, urinary retention, flank pain. MUSCULOSKELETAL: See HPI SKIN: No rash, no erythema, no pruritus NEUROLOGIC: Denies weakness, dizziness, headache, numbness, change in speech, confusion PSYCHIATRIC: No concerning psychosocial issues. 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) Centrilobular emphysema (05/09/18) Diverticulosis of large intestine without hemorrhage (04/22/15) Former smoker (04/20/16) Hyperlipidemia (04/20/16) Hypertension (06/06/17) Lumbar spondylosis Osteoporosis (04/22/15) Other dietary vitamin B12 deficiency anemia (02/17/15) Peripheral arterial disease (02/13/16) Vascular claudication (04/20/16) Surgical History Hx of sinus surgery S/P lumbar fusion (12/02/17) Status post bilateral cataract extraction Family History Mother CAD (coronary artery disease) Social History marital status: number of children: 4 household members: spouse lives independently: Yes caregiver/support person: Yes (Daughters) housing: house pets and animals: No education level: high school occupational status: other 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 travel history: recent leisure activities: sports and other Smoking Status: Former smoker Tobacco: How many years used: 40 Smokeless tobacco user: other quit status: quit date established second hand exposure: No alcohol intake: current substance use type: does not use Smoking Status: Former smoker alcohol intake frequency: 0-2 drinks per day Substance Use Type: does not use Exam Initial Vital Signs Initial Vital Signs: Vital Signs Pulse Rate 91 H 05/23/21 10:41 Pulse Oximetry 92 05/23/21 10:41 GENERAL: Thin 80-year-old female no acute distress HEENT: Head atraumatic,EOMI, pupils reactive, face symmetric, moist mucous membranes CARDIOVASCULAR: Regular rate and rhythm without murmurs, rubs or gallops. RESPIRATORY: Breath sounds equal bilaterally, no wheezes rales or rhonchi. ABDOMEN: Soft, nontender. Normoactive bowel sounds all 4 quadrants. No guarding or rebound. EXTREMITIES: Normal range of motion, no clubbing or edema. Neurovascularly intact Tender right hip pelvis stable left leg actually appear shortened but probably due to positioning. Right distal pedal pulses intact. NEUROLOGICAL: Alert and oriented x4 SKIN: Warm, dry, no laceration, no petechiae, no rashes or lesions. Course Orders Ordered: ED Orders 05/23/21 10:26 Chest [XR chest 1V] Stat XR hip w pel if done RT 2V Stat 05/23/21 10:32 CBC Auto Diff [Complete Blood Count AUTO DIFF] Stat 05/23/21 10:57 CT pelvis wo con Stat CMP [Comprehensive Metabolic Panel] Stat 05/23/21 12:30 COVID19 -Nasal RAPID/Pre-Proc Stat 05/23/21 12:56 Urinalysis and Microscopic Stat Discontinued Medications Diphenhydramine HCl (Diphenhydramine 50 Mg/Ml Vial) 25 mg IV NOW ONE Stop: 05/23/21 14:12 Last Admin: 05/23/21 14:12 Dose: 25 mg Documented by: Morphine Sulfate (Morphine 2 Mg/Ml Inj) 2 mg IV NOW ONE Stop: 05/23/21 12:09 Last Admin: 05/23/21 12:28 Dose: 2 mg Documented by: MARCO Morphine Sulfate (Morphine 4 Mg/Ml Inj) 4 mg IV NOW ONE Stop: 05/23/21 14:03 Last Admin: 05/23/21 14:05 Dose: 4 mg Documented by: Vital Signs Vital signs: Vital Signs - 8 hr 05/23/21 10:41 05/23/21 10:42 05/23/21 10:45 Temperature 97.7 F Pulse Rate 91 H 89 91 H Respiratory Rate 16 Blood Pressure 142/69 H 154/63 H Pulse Oximetry 92 94 93 05/23/21 11:00 05/23/21 11:30 05/23/21 12:00 Temperature Pulse Rate 84 86 90 Respiratory Rate 27 H 22 Blood Pressure 130/60 Pulse Oximetry 92 91 05/23/21 12:29 05/23/21 12:30 05/23/21 12:31 Temperature Pulse Rate 97 H 99 H 98 H Respiratory Rate 30 H 33 H 29 H Blood Pressure 129/71 142/69 H Pulse Oximetry 92 90 L 90 L 05/23/21 13:00 05/23/21 13:30 05/23/21 14:00 Temperature Pulse Rate 98 H 98 H 100 H Respiratory Rate 26 H 33 H 24 Blood Pressure 131/59 L 98/66 102/84 Pulse Oximetry 96 96 96 05/23/21 14:07 Temperature Pulse Rate 99 H Respiratory Rate 22 Blood Pressure 114/95 H Pulse Oximetry 96 MDM - Fall Lab Data Result diagrams: 05/23/21 10:32 05/23/21 10:57 Labs: Lab Results 05/23/21 05/23/21 05/23/21 Range/Units 10:32 10:57 12:30 WBC 10.0 (4.5-11.0) X10^3/uL RBC 3.49 L (4.0-5.2) X10^6/uL Hgb 14.8 (12.0-16.0) g/dL Hct 42.3 (36-46) % MCV 121.2 H (80-100) fL MCH 42.5 H (26-34) PG MCHC 35.1 (30-36) % RDW 13.5 (11.6-14.8) % Plt Count 210 (150-400) X10^3/uL Neut % (Auto) 81.2 H (50-75) % Lymph % (Auto) 8.9 L (25-40) % Valley % (Auto) 9.3 (3-14) % Eos % (Auto) 0.3 L (2-4) % Baso % (Auto) 0.3 (0-2) % Neut # (Auto) 8100 H (5043-4426) /uL Lymph # (Auto) 900 L (9772-8848) /uL Valley # (Auto) 900 (0-900) /uL Eos # (Auto) 0 (0-450) /uL Baso # (Auto) 0 (0-100) /uL RBC Morphology See below Anisocytosis 1+ H Macrocytosis 2+ H Sodium 139 (137-145) mmol/L Potassium 4.0 (3.4-5.1) mmol/L Chloride 105 (98-107) mmol/L Carbon Dioxide 26 (22-32) mmol/L BUN 13 (7-17) mg/dL Creatinine 0.55 (0.52-1.04) mg/dL Estimated GFR > 60.0 (>60) mL/min BUN/Creatinine Ratio 23.6 H (6-22) Glucose 101 (80-110) mg/dL Calcium 8.3 L (8.4-10.2) mg/dL Total Bilirubin 1.0 (0.2-1.3) mg/dL AST 30 (14-36) IU/L ALT 27 (<35) IU/L Alkaline Phosphatase 77 (38-126) U/L Total Protein 6.6 (6.3-8.2) g/dL Albumin 3.7 (3.5-5.0) g/dL Globulin 2.9 (1.7-4.1) g/dL Albumin/Globulin Ratio 1.3 (1.0-2.8) Urine Color Urine Appearance Urine pH (4.5-8.0) Ur Specific [place] (1.000-1.035) Urine Protein (Negative) Urine Glucose (UA) (Negative) g/dL Urine Ketones (NEGATIVE) Urine Occult Blood (Negative) Urine Nitrate (Negative) Urine Bilirubin (NEGATIVE) Urine Urobilinogen (0.2) E.U./dL Ur Leukocyte Esterase (NEGATIVE) Urine RBC (0-5/HPF) Urine WBC (0-5/HPF) Urine Bacteria (None) Ur Culture Indicated? SARS-CoV-2 (PCR) Negative (Negative) 05/23/21 Range/Units 12:56 WBC (4.5-11.0) X10^3/uL RBC (4.0-5.2) X10^6/uL Hgb (12.0-16.0) g/dL Hct (36-46) % MCV (80-100) fL MCH (26-34) PG MCHC (30-36) % RDW (11.6-14.8) % Plt Count (150-400) X10^3/uL Neut % (Auto) (50-75) % Lymph % (Auto) (25-40) % Valley % (Auto) (3-14) % Eos % (Auto) (2-4) % Baso % (Auto) (0-2) % Neut # (Auto) (0207-5745) /uL Lymph # (Auto) (2114-9589) /uL Valley # (Auto) (0-900) /uL Eos # (Auto) (0-450) /uL Baso # (Auto) (0-100) /uL RBC Morphology Anisocytosis Macrocytosis Sodium (137-145) mmol/L Potassium (3.4-5.1) mmol/L Chloride (98-107) mmol/L Carbon Dioxide (22-32) mmol/L BUN (7-17) mg/dL Creatinine (0.52-1.04) mg/dL Estimated GFR (>60) mL/min BUN/Creatinine Ratio (6-22) Glucose (80-110) mg/dL Calcium (8.4-10.2) mg/dL Total Bilirubin (0.2-1.3) mg/dL AST (14-36) IU/L ALT (<35) IU/L Alkaline Phosphatase (38-126) U/L Total Protein (6.3-8.2) g/dL Albumin (3.5-5.0) g/dL Globulin (1.7-4.1) g/dL Albumin/Globulin Ratio (1.0-2.8) Urine Color Yellow Urine Appearance Clear Urine pH 5.0 (4.5-8.0) Ur Specific [place] 1.015 (1.000-1.035) Urine Protein Negative (Negative) Urine Glucose (UA) Negative (Negative) g/dL Urine Ketones Negative (NEGATIVE) Urine Occult Blood 2+ H (Negative) Urine Nitrate Negative (Negative) Urine Bilirubin Negative (NEGATIVE) Urine Urobilinogen 0.2 (0.2) E.U./dL Ur Leukocyte Esterase Negative (NEGATIVE) Urine RBC 1-5/hpf (0-5/HPF) Urine WBC None seen (0-5/HPF) Urine Bacteria None seen (None) Ur Culture Indicated? Cult not indicated SARS-CoV-2 (PCR) (Negative) Imaging Data Extremity x-ray #1: Radiologist's Impression: PROCEDURE:? XR HIP W PEL IF DONE RT 2V ? INDICATIONS:? fall ? TECHNIQUE:? AP pelvis with lateral view(s) of the right hip(s).? ? COMPARISON:? [facility], CT, CT LUMBAR SPINE WO CON, 05/11/2021, 11:45.? [facility], CR, XR CHEST 1V, 05/23/2021, 10:19.? [facility], CR, [id number] W PEL IF PERFORMED, 05/12/2017, 14:30. ? FINDINGS:? ? Bones:? No fractures or dislocations.? Pelvic ring appears intact.? No suspicious bony lesions.? Note is made of osteitis pubis, which is not considered to be frankly abnormal in a woman of this age.? ? Lumbosacral fixation hardware is seen, which appears intact. ? There is moderate superior joint space narrowing seen of both hips, with associated remodeling changes with subchondral sclerosis and osteophyte formation.? ? Soft tissues:? The visualized bowel gas pattern is normal.? No suspicious soft tissue calcifications.? ? ? IMPRESSION:? No displaced fracture is seen on these plain films. ? If there is point tenderness (or other clinical suspicion for a fracture not seen on these images) then a dedicated CT could be considered for further evaluation, if clinically appropriate. ? Moderate bilateral hip degenerative change. ? Lumbosacral fixation hardware. ? ? Dictated by: Zi Hemphill M.D. on 05/23/2021 at 9:50 ? ? Approved by: Zi Hemphill M.D. on 05/23/2021 at 9:51 ? CT scan - abdomen/pelvis: Radiologist's Impression: PROCEDURE:? CT PEL WO CON ? INDICATIONS:? fall right hip pain ? TECHNIQUE:? Noncontrast 3 mm axial sections acquired through the bony pelvis, with coronal and sagittal reformatting.? ? COMPARISON:? [facility], CT, CT ABDOMEN PELVIS W CON, 05/11/2018, 7:49.? [facility], CT, CT LUMBAR SPINE WO CON, 05/11/2021, 11:45.? [facility], CR, XR CHEST 1V, 05/23/2021, 10:19.? [facility], CR, XR HIP W PEL IF DONE RT 2V, 05/23/2021, 10:19. ? FINDINGS:? Image quality:? Excellent.? ? Bones:? There is a mildly displaced fracture of the right inferior pubic ramus.? Mildly displaced fractures can be seen involving the right posterior and medial acetabulum. ? No hip dislocation can be seen.? No fractures of the proximal femurs can be seen.? No sacral fracture is seen.? No left-sided pelvis fracture can be seen. ? Lumbosacral fixation hardware is seen. ? Generalized degenerative changes are seen. No suspicious lytic or blastic lesions are seen. ? Soft tissues:? No significant hematoma is seen adjacent to the fractures. ? No dilated loops of small bowel are seen. Colonic diverticulosis is seen, without findings of active diverticulitis.? The uterus is atrophic.? No adnexal masses are seen on either side. ? Prominent atherosclerotic calcification can be seen.? ? ? IMPRESSION:? Mildly displaced fractures are seen involving the right posterior and medial acetabulum. ? There is a mildly displaced fracture of the right inferior pubic ramus. ? No significant soft tissue hematoma is seen associated with fractures. ? ? ? Incidental note is made of: Lumbosacral fixation hardware Prominent atherosclerotic calcification Diverticulosis, without active diverticulitis ? Dictated by: Zi Hemphill M.D. on 05/23/2021 at 10:33? Chest x-ray: Radiologist's Impression: PROCEDURE:? XR CHEST 1V ? INDICATIONS:? fall ? TECHNIQUE:? One view of the chest was acquired.? ? COMPARISON:? [facility], CT, CT CHEST ABD PEL W CON, 05/09/2018, 17:20.? [facility], CR, XR CHEST 2V, 07/25/2020, 11:34. ? FINDINGS:? ? Surgical changes and devices:? None.? ? Lungs and pleura:? No focal infiltrates are seen.? Calcified granulomas are again seen.? No pleural effusions or pneumothorax.? ? Mediastinum:? The cardiac contours are within normal limits. The aorta demonstrates calcification and tortuosity. ? Bones and chest wall:? No displaced rib fracture can be seen.? No suspicious bony lesions.? Age-appropriate bony degenerative changes are seen. ? Overlying soft tissues appear unremarkable.? IMPRESSION:? No displaced rib fracture or pneumothorax. ? If there is strong clinical concern for chest trauma in this patient, please consider a follow-up chest CT with IV contrast for further evaluation.? ? Prior granulomatous exposure.? ? ? Dictated by: Zi Hemphill M.D. on 05/23/2021 at 9:48 ? ? Approved by: Zi Hemphill M.D. on 05/23/2021 at 9:49 ? [facility] [place] Narrative Medical decision making narrative: Patient is found to have an acetabular fracture and suprapubic rami are fracture on the right identified on CT. Discussion with Dr. Johnson orthopedics who agrees with transfer to [facility] for definitive treatment. The patient's pain is controlled with morphine. 1300 Dr. Evans, at [facility] accepts patient Discharge Plan Departure Patient Disposition: [facility] Clinical Impression: Pelvic fracture Prescriptions: No Action atorvastatin 40 mg tablet 40 mg PO DAILY Qty: 90 0RF Rx Instructions: PT OVERDUE FOR APPT. PLEASE CALL TO SCHEDULE APPT. THANKS 08/25/20 multivitamin tablet 1 tab PO DAILY 0RF aspirin 81 mg tablet,delayed release (DR/EC) 81 mg PO DAILY 0RF acetaminophen [Tylenol Extra Strength] 500 mg tablet 500 mg PO Q4H PRN (Reason: pain) Qty: 60 0RF Rx Instructions: take 1 tablet by mouth every four hours as needed for pain Referrals: Miguel Ruano MD [Primary Care Provider] -
[2021-05-23 10:42] LABS: Add Manual Diff / Slide Review SLIDE REVIEW; Basophils Absolute Auto 0 /uL (0-100); Basophils Percent Auto 0.3 % (0-2); Eosinophils Absolute Auto 0 /uL (0-450); Eosinophils Percent Auto 0.3 % (2-4); Hematocrit 42.3 % (36-46); Hemoglobin 14.8 g/dL (12.0-16.0); Lymphocytes Absolute Auto 900 /uL (1100-4500); Lymphocytes Percent Auto 8.9 % (25-40); Mean Corpuscular HGB Conc 35.1 % (30-36); Mean Corpuscular Hemoglobin 42.5 PG (26-34); Mean Corpuscular Volume 121.2 fL (80-100); Monocytes Absolute Auto 900 /uL (0-900); Monocytes Percent Auto 9.3 % (3-14); Neutrophils Absolute Auto 8100 /uL (1500-7000); Neutrophils Percent Auto 81.2 % (50-75); Platelet Count 210 X10^3/uL (150-400); Red Blood Cell Count 3.49 X10^6/uL (4.0-5.2); Red Cell Distribution Width 13.5 % (11.6-14.8)
--- NOTE | 2021-05-23 10:57 | DI.CT.S_ITS ---
PROCEDURE: CT PEL WO CON INDICATIONS: fall right hip pain TECHNIQUE: Noncontrast 3 mm axial sections acquired through the bony pelvis, with coronal and sagittal reformatting. COMPARISON: [facility], CT, CT ABDOMEN PELVIS W CON, 05/11/2018, 7:49. [facility], CT, CT LUMBAR SPINE WO CON, 05/11/2021, 11:45. [facility], CR, XR CHEST 1V, 05/23/2021, 10:19. [facility], CR, XR HIP W PEL IF DONE RT 2V, 05/23/2021, 10:19. FINDINGS: Image quality: Excellent. Bones: There is a mildly displaced fracture of the right inferior pubic ramus. Mildly displaced fractures can be seen involving the right posterior and medial acetabulum. No hip dislocation can be seen. No fractures of the proximal femurs can be seen. No sacral fracture is seen. No left-sided pelvis fracture can be seen. Lumbosacral fixation hardware is seen. Generalized degenerative changes are seen. No suspicious lytic or blastic lesions are seen. Soft tissues: No significant hematoma is seen adjacent to the fractures. No dilated loops of small bowel are seen. Colonic diverticulosis is seen, without findings of active diverticulitis. The uterus is atrophic. No adnexal masses are seen on either side. Prominent atherosclerotic calcification can be seen. IMPRESSION: Mildly displaced fractures are seen involving the right posterior and medial acetabulum. There is a mildly displaced fracture of the right inferior pubic ramus. No significant soft tissue hematoma is seen associated with fractures. Incidental note is made of: Lumbosacral fixation hardware Prominent atherosclerotic calcification Diverticulosis, without active diverticulitis Dictated by: Zi Hemphill M.D. on 05/23/2021 at 10:33 Approved by: Zi Hemphill M.D. on 05/23/2021 at 10:37
[2021-05-23 11:11] LABS: Anisocytosis 1+; Macrocytosis 2+
[2021-05-23 11:21] LABS: Alanine Aminotransferase 27 IU/L (<35); Albumin 3.7 g/dL (3.5-5.0); Albumin Globulin Ratio 1.3 (1.0-2.8); Alkaline Phosphatase 77 U/L (38-126); Aspartate Aminotransferase 30 IU/L (14-36); BUN Creatinine Ratio 23.6 (6-22); Blood Urea Nitrogen 13 mg/dL (7-17); Calcium 8.3 mg/dL (8.4-10.2); Carbon Dioxide 26 mmol/L (22-32); Chloride 105 mmol/L (98-107); Estimated Glomerular Filt Rate > 60.0 mL/min (>60); Globulin 2.9 g/dL (1.7-4.1); Glucose 101 mg/dL (80-110); HEMOLYSIS < 15 (0-50); Sodium 139 mmol/L (137-145); Total Protein 6.6 g/dL (6.3-8.2)
--- NOTE | 2021-05-23 11:30 | PC.NURSE ---
Pt is a/o x 3. Here for a fall. Pt's daughters are upset they are not able to visit. is designated visitor and is also independent/alert/oriented. Reinforced designated visitor policy.
[2021-05-23] MEDS: MORPHINE 2 MG/ML INJ IV (12:28)
[2021-05-23 12:53] LABS: COVID19 -Nasal RAPID Negative (Negative)
[2021-05-23 13:03] LABS: Appearance Urine UA CLEAR; Bilirubin Urine UA NEGATIVE (NEGATIVE); Color Urine UA YELLOW; Glucose Urine UA NEGATIVE (Negative); Ketones Urine UA NEGATIVE (NEGATIVE); Leukocyte Esterase Urine UA NEGATIVE (NEGATIVE); Nitrite Urine UA NEGATIVE (Negative); Occult Blood Urine UA 2+ (Negative); Protein Urine UA NEGATIVE (Negative); Specific Gravity Urine UA 1.015 (1.000-1.035); Urobilinogen Urine UA 0.2 E.U./dL (0.2)
[2021-05-23 13:18] LABS: Bacteria Urine None Seen; Culture Indicated Urine Cult Not Indicated; WBC Urine None Seen (0-5/HPF)
[2021-05-23 13:19] LABS: RBC Urine 1-5/HPF (0-5/HPF)
[2021-05-23] MEDS: MORPHINE 4 MG/ML INJ IV (14:05)
[2021-05-23] MEDS: diphenhydrAMINE 50 MG/ML VIAL 25 MG IV (14:12)
--- NOTE | 2021-05-23 14:54 | PC.NURSE ---
pt had good pedal pulses bilaterally. pt was able to wiggle toes . denies any numbness or tingling.
== END 2021-05-23 14:25 | disposition short-term general hospital (02) ==
PROVIDERS: Emergency Provider Emergency Medicine; PCP Internal Medicine
DX: S32.491A Other specified fracture of right acetabulum, initial encounter for closed fracture (principal); S32.591A Other specified fracture of right pubis, initial encounter for closed fracture; Z87.891 Personal history of nicotine dependence; W06.XXXA Fall from bed, initial encounter; Y93.89 Activity, other specified; Z20.822 Contact with and (suspected) exposure to COVID-19
CPT/HCPCS: 36415; 71045; 72192; 73502; 80053; 81001; 85025; 87635; 96374; 96375; 96376; 99284; C9803; J1200; J2270

== ENCOUNTER → 2021-06-25 14:26 | Outpatient (CLI) | payer MEDICARE, OTHER, SELFPAY ==
[2021-06-08 14:28] VITALS: BMI 21.0
--- NOTE | 2021-06-25 14:30 | DI.RAD.S_ITS ---
PROCEDURE: XR LUMBAR SPINE 2-3V INDICATIONS: left flank/back pain TECHNIQUE: 2 views of the lumbar spine were acquired. COMPARISON: [facility], CR, XR LUMBAR SPINE 2 OR 3 VIEWS, 08/28/2020, 10:31. [facility], CT, CT LUMBAR SPINE WO CON, 05/11/2021, 11:45. [facility], CT, CT PEL WO CON, 05/23/2021, 11:12. [facility], CR, XR LUMBAR SPINE 2-3V, 07/25/2020, 11:34. FINDINGS: Bones: Generalized osteopenia, limiting visualization of osseous structures. 5 [id number] vertebrae are present. There is normal bony alignment. There are vertebral body compression fractures, severe at T12, moderate at T11 and mild at T10. There are postsurgical changes with discectomy and posterior fusion at L3-S1. Pedicular screws and fusion rods appear intact. There is degenerative disc disease, severe at L4-L5, and mild at other levels. No suspicious bony lesions. Soft tissues: Overlying bowel gas pattern is normal. Severe vascular calcifications indicate severe atherosclerosis. IMPRESSION: 1. There are compression fractures, severe at T12, moderate at T11 and mild at T10. T12 fracture was present on 05/11/2021 and appears unchanged. T11 fracture is new. T10 was not within the field of view on the prior CT. Severe osteopenia limited adequate visualization of osseous structures. The patient may benefit from vertebroplasty. 2. Multilevel degenerative and postsurgical changes as described. 3. Severe atherosclerosis. Dictated by: on 06/26/2021 at 7:25 Key Mckeon M.D. Approved by: Key Mckeon M.D. on 06/26/2021 at 7:25
[2021-06-25 15:45] LABS: Add Manual Diff / Slide Review NO; Basophils Absolute Auto 0 /uL (0-100); Basophils Percent Auto 0.6 % (0-2); Eosinophils Absolute Auto 100 /uL (0-450); Eosinophils Percent Auto 1.8 % (2-4); Hematocrit 37.9 % (36-46); Hemoglobin 12.8 g/dL (12.0-16.0); Lymphocytes Absolute Auto 1600 /uL (1100-4500); Lymphocytes Percent Auto 23.9 % (25-40); Mean Corpuscular HGB Conc 33.7 % (30-36); Mean Corpuscular Volume 109.7 fL (80-100); Monocytes Absolute Auto 600 /uL (0-900); Monocytes Percent Auto 8.8 % (3-14); Neutrophils Absolute Auto 4300 /uL (1500-7000); Neutrophils Percent Auto 64.9 % (50-75); Platelet Count 237 X10^3/uL (150-400); Red Blood Cell Count 3.45 X10^6/uL (4.0-5.2); Red Cell Distribution Width 16.8 % (11.6-14.8); White Blood Cell Count 6.7 X10^3/uL (4.5-11.0)
[2021-06-25 15:53] LABS: Alanine Aminotransferase 30 IU/L (<35); Albumin 4.3 g/dL (3.5-5.0); Albumin Globulin Ratio 1.3 (1.0-2.8); Alkaline Phosphatase 107 U/L (38-126); Aspartate Aminotransferase 34 IU/L (14-36); BUN Creatinine Ratio 21.8 (6-22); Bilirubin Total 0.3 mg/dL (0.2-1.3); Blood Urea Nitrogen 12 mg/dL (7-17); Calcium 9.4 mg/dL (8.4-10.2); Carbon Dioxide 28 mmol/L (22-32); Chloride 102 mmol/L (98-107); Estimated Glomerular Filt Rate > 60 mL/min (>60); Globulin 3.3 g/dL (1.7-4.1); Glucose 90 mg/dL (80-110); HEMOLYSIS < 15 (0-50); Potassium 3.5 mmol/L (3.4-5.1); Sodium 137 mmol/L (137-145); Total Protein 7.6 g/dL (6.3-8.2)
[2021-06-25 16:14] LABS: HEMOLYSIS < 15 (0-50); Iron 52 ug/dL (37-170)
[2021-06-25 16:24] LABS: Percent Iron Saturation 18 % (15-50); Total Iron Binding Capacity 288 ug/dL (265-497); Transferrin 214 mg/dL (206-381)
[2021-06-25 16:42] LABS: Vitamin B12 > 1000 pg/mL (239-931)
== END ==
PROVIDERS: PCP Internal Medicine; Referring Provider Internal Medicine; Visit Provider Internal Medicine
DX: M48.54XA Collapsed vertebra, not elsewhere classified, thoracic region, initial encounter for fracture (principal); M54.9 Dorsalgia, unspecified; M85.89 Other specified disorders of bone density and structure, multiple sites; M51.36 Other intervertebral disc degeneration, lumbar region; R10.9 Unspecified abdominal pain; E78.2 Mixed hyperlipidemia; I10 Essential (primary) hypertension; Z98.1 Arthrodesis status
CPT/HCPCS: 36415; 72100; 80053; 82607; 83540; 83550; 85025

== ENCOUNTER 2021-08-28 13:45 | Outpatient (RCR) | payer MEDICARE, OTHER, SELFPAY ==
[2021-06-08 14:28] VITALS: BMI 21.0
--- NOTE | 2021-08-25 22:00 | PT.OIE ---
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) Centrilobular emphysema (05/09/18) Diverticulosis of large intestine without hemorrhage (04/22/15) Former smoker (04/20/16) Hyperlipidemia (04/20/16) Hypertension (06/06/17) Lumbar spondylosis Osteoporosis (04/22/15) Other dietary vitamin B12 deficiency anemia (02/17/15) Peripheral arterial disease (02/13/16) Vascular claudication (04/20/16) Past Surgical History (Last Reviewed 08/04/21 @ 09:45 by Sue Hampton PA-C) Hx of sinus surgery S/P lumbar fusion (12/02/17) Status post bilateral cataract extraction Visit Care Team Role Provider Type Miguel Ruano MD Family Provider Physician Primary Care Provider Specialty: Internal Medicine Address: [address] [place] [address], [address], [facility] Email: [email or web address] Dc Leblanc MD Attending Provider Physician Referring Provider Specialty: Ear, Nose, Throat Address: [address] [place] [address], [facility] Email: [email or web address] Physical Therapy Initial Evaluation PT-OP-A Visit Information Start: 08/24/21 21:30 Freq: Status: Active Protocol: Document 08/25/21 08:11 AMB (Rec: 08/25/21 08:28 AMB [id number]) Out-Patient Physical Therapy Visit Information Visit Information Visit Type Initial Evaluation Visit Start Time 08:15 Visit Stop Time 09:00 Total Visit Minutes 45 Visit Number 1 PT-OP-B Current Condition Start: 08/24/21 21:30 Freq: Status: Active Protocol: Document 08/25/21 08:11 AMB (Rec: 08/25/21 08:28 AMB [id number]) Current Condition History of Current Condition Onset Date 2-3 weeks Current Complaints dizzy History of Current Condition Sitting up in bed causes dizziness. Feels like she could fall. Denies neck pain, new onset hearing changes, ear pressure, numbness, tingling. Was previously using a walking stick, does have a FWW at home. This all started 3 weeks ago, when she got up out of bed, that episode was associated with spinning and nausea. Doesn't really have the spinning and nausea any more. Saw Dr. Leblanc and thinks since seeing him she is actually about 60% better. But does get dizzy when sitting up or standing up . Doesn't really notice it as much with rolling in bed. Prior Functional Status Baseline Function- ADL's Modified Independent Baseline Function- Mobility Modified Independent Current Functional Impairments (Reported) Functional Limitations- ADL's Fearful of falling due to feeling off balance with positional changes Personal Factors Other Personal Factors That May Effect PAD, hx pelvic fracture, T7 Therapy/Recovery compression fracture, hx falls PT-OP-C Subjective Start: 08/24/21 21:30 Freq: Status: Active Protocol: Document 08/25/21 13:25 AMB (Rec: 08/25/21 13:43 AMB [id number]) Patient Questionnaires Dizziness Handicap Inventory DHI Score 28 DHI Functional Impairment 20 to 39% Impaired (Score 20- 39) PT-OP-O Vestibular Start: 08/24/21 21:30 Freq: Status: Active Protocol: Document 08/25/21 13:25 AMB (Rec: 08/25/21 13:43 AMB [id number]) Vestibular Assessment Visual Testing Smooth Pursuits Horizontal WFL Smooth Pursuits Vertical WFL Saccades Horizontal WFL Saccades Vertical WFL Thrust Head Negative Positional Testing Wingo-Hallpike Negative Left,Negative Right Rolling Test Negative Left,Negative Right Supine to Sit dizzy Comments Vestibular Comments 110/65 in supine, 105/60 upon seated with mild feeling of lightheadedness, increased subjective feeling off balance once getting up and walking but did not take blood pressure at that time PT-OP-T Assessment and Plan Start: 08/24/21 21:30 Freq: Status: Active Protocol: Document 08/25/21 13:25 AMB (Rec: 08/25/21 13:43 AMB [id number]) Physical Therapy Assessment Rehab Potential Rehabilitation Potential Good Evaluation Complexity Number of Personal Factors/Comorbidities 1-2 Number of Body Systems Impaired 3 Clinical Presentation at Evaluation Evolving Impairments Impairments Balance,Gait,Vestibular Goals Two Impairment Fall risk Short Term Goal (STG) Taniya will be assess with an appropriate balance test to educate her in her fall risk. STG Duration 4 weeks One Impairment Dizziness Short Term Goal (STG) Taniya will move from sit to stand without feeling off balance. STG Duration 4 weeks [facility] Goal (LTG) Taniya will be independent with a HEP for her dizziness and balance. LTG Duration 8 weeks Assessment Summary Assessment Taniya attends PT with R BPPV diagnosis, but was not symptomatic and did not show nystagmus with any positional testing. R Mara performed today due to pt feeling that postional testing with ENT helped to resolve sx by at least 60%. Her blood pressure was low and, while it did not drop significantly with moving from supine to sit during one test, she was very symptomatic when moving from sit to stand (unfortunately BP cuff was not at that time). While her initial symptoms sound quite similar to BPPV, the spinning and nausea have improved, however she continues to be off balance when moving from supine to sit or sit to stand. From her medical record she does have a significant fall history, although she did not disclose this during her evaluation, so if she continues to not have any spinning symptoms and Praneeth- Hallpike continues to be negative she could benefit from a more thorough balance evaluation. Physical Therapy Plan Frequency and Duration Frequency of Treatment 2x/Week Duration of Treatment 8 weeks Plan of Care Start Date 08/25/21 Plan of Care End Date 10/20/21 Therapeutic Interventions Therapeutic Interventions Balance Training,Canalithic Repositioning,Gait Training, Home Exercise Program, Neuromuscular Re-education, Self-Care/Home Management, Therapeutic Activities, Therapeutic Exercises, Vestibular Rehabilitation Next Visit Focus/Plan Next Note Type Treatment Note Next Visit Plan If pt felt improvement after last visit could consider Repeat R Mara, but likely benefit from further testing, could consider repeat BP testing vs DVA/VOR/balance testing.
--- NOTE | 2021-08-25 22:01 | PT.OPPOC ---
Physical, Occupational & Speech Therapy At [facility] Current Diagnoses Benign paroxysmal vertigo, right ear (08/25/21) History of falling (08/25/21) Visit Care Team Role Provider Type Miguel Ruano MD Family Provider Physician Primary Care Provider Specialty: Internal Medicine Address: [address] [place] [address], [address], [address] Email: [email or web address] Dc Leblanc MD Attending Provider Physician Referring Provider Specialty: Ear, Nose, Throat Address: [address] [place] [address], [address] Email: [email or web address] Plan Of Care PT-OP-T Assessment and Plan Start: 08/24/21 21:30 Freq: Status: Active Protocol: Document 08/25/21 13:25 AMB (Rec: 08/25/21 13:43 AMB [id number]) Physical Therapy Assessment Rehab Potential Rehabilitation Potential Good Evaluation Complexity Number of Personal Factors/Comorbidities 1-2 Number of Body Systems Impaired 3 Clinical Presentation at Evaluation Evolving Impairments Impairments Balance,Gait,Vestibular Goals Two Impairment Fall risk Short Term Goal (STG) Taniya will be assess with an appropriate balance test to educate her in her fall risk. STG Duration 4 weeks One Impairment Dizziness Short Term Goal (STG) Taniya will move from sit to stand without feeling off balance. STG Duration 4 weeks [employer] Goal (LTG) Taniya will be independent with a HEP for her dizziness and balance. LTG Duration 8 weeks Assessment Summary Assessment Taniya attends PT with R BPPV diagnosis, but was not symptomatic and did not show nystagmus with any positional testing. R Mara performed today due to pt feeling that postional testing with ENT helped to resolve sx by at least 60%. Her blood pressure was low and, while it did not drop significantly with moving from supine to sit during one test, she was very symptomatic when moving from sit to stand (unfortunately BP cuff was not at that time). While her initial symptoms sound quite similar to BPPV, the spinning and nausea have improved, however she continues to be off balance when moving from supine to sit or sit to stand. From her medical record she does have a significant fall history, although she did not disclose this during her evaluation, so if she continues to not have any spinning symptoms and Praneeth- Hallpike continues to be negative she could benefit from a more thorough balance evaluation. Physical Therapy Plan Frequency and Duration Frequency of Treatment 2x/Week Duration of Treatment 8 weeks Plan of Care Start Date 08/25/21 Plan of Care End Date 10/20/21 Therapeutic Interventions Therapeutic Interventions Balance Training,Canalithic Repositioning,Gait Training, Home Exercise Program, Neuromuscular Re-education, Self-Care/Home Management, Therapeutic Activities, Therapeutic Exercises, Vestibular Rehabilitation Next Visit Focus/Plan Next Note Type Treatment Note Next Visit Plan If pt felt improvement after last visit could consider Repeat R Mara, but likely benefit from further testing, could consider repeat BP testing vs DVA/VOR/balance testing. Plan of Care Dates Plan of Care Start Date 08/25/21 Plan of Care End Date 10/20/21 Electronically Signed by: Zoila Oliver, PT 08/25/21 [id number] If you are in agreement with this Plan of Care, please return a signed and dated copy. I have reviewed this Plan of Care and certify that the skilled therapy services above are required to meet the patient?s needs. Physician Signature Date Printed Name and Credentials Clinical Instructor Signature Printed Name and Credentials
--- NOTE | 2021-08-28 14:05 | PT.OPDS ---
Current Diagnoses Benign paroxysmal vertigo, right ear (08/28/21) History of falling (08/28/21) Visit Care Team Role Provider Type Miguel Ruano MD Family Provider Physician Primary Care Provider Specialty: Internal Medicine Address: [address] [place] [address], [address], [address] Email: [email or web address] Dc Leblanc MD Attending Provider Physician Referring Provider Specialty: Ear, Nose, Throat Address: [address] [place] [address], [id number] Email: [email or web address] Visit Number Visit Number 2 Discharge Summary PT-OP-B Current Condition Start: 08/24/21 21:30 Freq: Status: Active Protocol: Document 08/25/21 08:11 AMB (Rec: 08/25/21 08:28 AMB [id number]) Current Condition History of Current Condition Onset Date 2-3 weeks Current Complaints dizzy History of Current Condition Sitting up in bed causes dizziness. Feels like she could fall. Denies neck pain, new onset hearing changes, ear pressure, numbness, tingling. Was previously using a walking stick, does have a FWW at home. This all started 3 weeks ago, when she got up out of bed, that episode was associated with spinning and nausea. Doesn't really have the spinning and nausea any more. Saw Dr. Leblanc and thinks since seeing him she is actually about 60% better. But does get dizzy when sitting up or standing up . Doesn't really notice it as much with rolling in bed. Prior Functional Status Baseline Function- ADL's Modified Independent Baseline Function- Mobility Modified Independent Current Functional Impairments (Reported) Functional Limitations- ADL's Fearful of falling due to feeling off balance with positional changes Personal Factors Other Personal Factors That May Effect PAD, hx pelvic fracture, T7 Therapy/Recovery compression fracture, hx falls PT-OP-C Subjective Start: 08/24/21 21:30 Freq: Status: Active Protocol: Document 08/28/21 13:45 DCW (Rec: 08/28/21 14:05 DCW [id number]) OP-PT Subjective Patient Comments Patient Comments Pt feels like her dizziness is now gone. Blames her fall history on dehydration, it only seems to happen when she is very busy and forgets to drink enough water. PT-OP-O Vestibular Start: 08/24/21 21:30 Freq: Status: Active Protocol: Document 08/28/21 13:45 DCW (Rec: 08/28/21 14:05 DCW [id number]) Vestibular Assessment Positional Testing Sage-Hallpike Negative Left,Negative Right PT-OP-T Assessment and Plan Start: 08/24/21 21:30 Freq: Status: Active Protocol: Document 08/28/21 13:45 DCW (Rec: 08/28/21 14:05 DCW [id number]) Physical Therapy Assessment Impairments Impairments Balance,Gait,Vestibular Goals Two Impairment Fall risk Short Term Goal (STG) Taniya will be assess with an appropriate balance test to educate her in her fall risk. STG Duration 4 weeks One Impairment Dizziness Short Term Goal (STG) Taniya will move from sit to stand without feeling off balance. STG Duration 4 weeks [facility] Goal (LTG) Taniya will be independent with a HEP for her dizziness and balance. LTG Duration 8 weeks Assessment Summary Assessment Pt reports she is no longer symptomatic. Therapist asked multiple times about her falls history, she is not worried about it, has zero interest in any balance testing to balance rehab. Feels comfortable with her current level of function, and is agreeable to discharge at this time. Physical Therapy Plan Frequency and Duration Frequency of Treatment 2x/Week Duration of Treatment 8 weeks Plan of Care Start Date 08/25/21 Plan of Care End Date 10/20/21 Therapeutic Interventions Therapeutic Interventions Balance Training,Canalithic Repositioning,Gait Training, Home Exercise Program, Neuromuscular Re-education, Self-Care/Home Management, Therapeutic Activities, Therapeutic Exercises, Vestibular Rehabilitation Discharge Physical Therapy Discharge Reasons Patient Request Next Visit Focus/Plan Next Note Type Discharge Summary
== END 2021-09-02 13:10 ==
LOC: PHYS 13:45
PROVIDERS: Family Provider Internal Medicine; PCP Internal Medicine; Referring Provider Otolaryngology; Visit Provider Otolaryngology
DX: H81.11 Benign paroxysmal vertigo, right ear (principal); Z91.81 History of falling
CPT/HCPCS: 97140; 97162

== ENCOUNTER 2022-10-05 15:23 | Emergency (ER) | payer MEDICARE, OTHER, SELFPAY ==
[2022-10-05 15:23] VITALS: BMI 21.0
[2022-10-05 15:47] VITALS: PULSE 74; RESP 18; TEMP 36.9; O2SAT 98
[2022-10-05 15:52] VITALS: BP 128/73
--- NOTE | 2022-10-05 15:53 | DI.RAD.S_ITS ---
PROCEDURE: XR ABDOMEN MIN 2V INDICATIONS: no BM since . Abd Pain TECHNIQUE: 2 views of the abdomen were acquired. COMPARISON: CT, CT PEL WO CON, 05/23/2021, 11:12. FINDINGS: Surgical changes and devices: L3 through L5 fusion. Bowel: No pneumoperitoneum. The bowel gas pattern is nonobstructive. Mild to moderate colonic stool. Soft tissues: No masses; visualized solid organ contours appear normal in size. No suspicious abdominal calcifications. Bones: No suspicious bony abnormalities. IMPRESSION: Mild to moderate colonic stool without obstruction. Dictated by: Cheli Pierre M.D. on 10/05/2022 at 16:45 Approved by: Cheli Pierre M.D. on 10/05/2022 at 16:46
--- NOTE | 2022-10-05 19:39 | ED_ITS ---
HPI - General Adult General Chief complaint: Abdominal Pain Stated complaint: Bowel issues Time Seen by Provider: 10/05/22 19:26 Source: patient and family Mode of arrival: Family Vehicle Limitations: no limitations History of Present Illness HPI narrative: Patient is an 81-year-old female. Has a history of diverticulitis. Has not had a bowel movement in the past several days. Has tried [id number]-[id number] medica tions to include stool softeners and fiber. She took a stool softener last evening. She states that now she feels like her abdomen is distended. No vomiting. Still passing flatus. No urinary symptoms. No chest pain or shortness of breath. Related Data Home Medications Medication Instructions Recorded Confirmed multivitamin 1 tab PO DAILY 05/30/18 08/04/21 aspirin 81 mg tablet,delayed 81 mg PO DAILY 01/01/21 08/04/21 release calcium carbonate 600 mg-vitamin cap PO 06/25/21 08/04/21 D3 10 mcg (400 unit) capsule cholecalciferol (vitamin D3) 25 25 mcg PO DAILY 06/25/21 08/04/21 mcg (1,000 unit) capsule docusate sodium 250 mg capsule 250 mg PO DAILY 06/25/21 08/04/21 enoxaparin 30 mg/0.3 mL 30 mg SUBCUT Q12H 06/25/21 08/04/21 subcutaneous syringe methocarbamol 500 mg tablet 500 mg PO 06/25/21 08/04/21 oxycodone 5 mg tablet See Rx Instructions PO Q4H PRN 06/25/21 08/04/21 polyethylene glycol 3350 17 gram 17 g PO DAILY 06/25/21 08/04/21 oral powder packet sennosides 8.6 mg tablet (senna) 8.6 mg PO DAILY 06/25/21 08/04/21 Previous Rx's Medication Instructions Recorded acetaminophen 500 mg tablet 500 mg PO Q4H PRN pain #60 tabs 11/25/18 (Tylenol Extra Strength) Disabled Parking #1 ea 05/29/21 meclizine 12.5 mg tablet 12.5 mg PO BID PRN dizziness #6 07/29/21 tabs meclizine 12.5 mg tablet 12.5 mg PO BID PRN vertigo #6 tabs 08/04/21 atorvastatin 40 mg tablet 40 mg PO DAILY #90 tabs 08/06/21 Allergies Allergy/AdvReac Type Severity Reaction Status Date / Time No Known Drug Allergies Allergy Verified 10/05/22 15:52 Review of Systems Constitutional Constitutional: Reports system reviewed and no additional complaints, except as documented Gastrointestinal Gastrointestinal: Reports system reviewed and no additional complaints, except as documented Genitourinary Genitourinary: Reports system reviewed and no additional complaints, except as documented Integumentary/Breasts Skin/Breast: Reports system reviewed and no additional complaints, except as documented 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) Centrilobular emphysema (05/09/18) Diverticulosis of large intestine without hemorrhage (04/22/15) Former smoker (04/20/16) Hyperlipidemia (04/20/16) Hypertension (06/06/17) Lumbar spondylosis Osteoporosis (04/22/15) Other dietary vitamin B12 deficiency anemia (02/17/15) Peripheral arterial disease (02/13/16) Vascular claudication (04/20/16) Surgical History Hx of sinus surgery S/P lumbar fusion (12/02/17) Status post bilateral cataract extraction Family History Mother CAD (coronary artery disease) Social History marital status: number of children: 4 household members: spouse lives independently: Yes caregiver/support person: Yes (Daughters) housing: house pets and animals: No education level: high school occupational status: other 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 sohail/hinduism: None travel history: recent leisure activities: sports and other Smoking Status: Former smoker Tobacco: How many years used: 40 Smokeless tobacco user: other quit status: quit date established second hand exposure: No alcohol intake: current substance use type: does not use Smoking Status: Former smoker alcohol intake frequency: 0-2 drinks per day Substance Use Type: does not use Exam Initial Vital Signs Initial Vital Signs: Vital Signs Temperature 98.5 F 10/05/22 15:47 Pulse Rate 74 10/05/22 15:47 Respiratory Rate 18 10/05/22 15:47 Pulse Oximetry 98 10/05/22 15:47 Oxygen Delivery Method Room Air 10/05/22 15:47 [facility] Head: normal to inspection and normocephalic Resp Effort & Inspection: normal respiratory effort Cardio Rate: regular rate GI Inspection: distended (Mild) Palpation: soft and No tender Skin General: no rashes or lesions noted Neuro General: patient alert, patient awake, patient oriented x3 and moves all extremities Course Orders Ordered: ED Orders 10/05/22 19:26 Complete Blood Count AUTO DIFF Stat Comprehensive Metabolic Panel Stat Lipase Stat Vital Signs Vital signs: Vital Signs - 8 hr 10/05/22 19:47 Pulse Rate 84 Respiratory Rate 16 Blood Pressure 177/79 H Pulse Oximetry 97 Oxygen Delivery Method Room Air Medical Decision Making Medical Records Medical records reviewed: Yes I reviewed the patient's medical records. Lab Data Lab results reviewed: Yes I reviewed the patient's lab results. 10/05/22 19:26 10/05/22 19:26 Labs: Lab Results 10/05/22 10/05/22 Range/Units 19:26 19:26 WBC 5.1 (4.5-11.0) X10^3/uL RBC 3.89 L (4.0-5.2) X10^6/uL Hgb 14.3 (12.0-16.0) g/dL Hct 41.5 (36-46) % MCV 106.5 H (80-100) fL MCH 36.8 H (26-34) PG MCHC 34.5 (30-36) % RDW 14.8 (11.6-14.8) % Plt Count 263 (150-400) X10^3/uL Neut % (Auto) 49.8 L (50-75) % Lymph % (Auto) 36.8 (25-40) % Boyle % (Auto) 10.1 (3-14) % Eos % (Auto) 1.9 L (2-4) % Baso % (Auto) 1.4 (0-2) % Neut # (Auto) 2500 (0038-8852) /uL Lymph # (Auto) 1900 (3294-5363) /uL Boyle # (Auto) 500 (0-900) /uL Eos # (Auto) 100 (0-450) /uL Baso # (Auto) 100 (0-100) /uL Sodium 136 L (137-145) mmol/L Potassium 4.0 (3.4-5.1) mmol/L Chloride 100 (98-107) mmol/L Carbon Dioxide 26 (22-32) mmol/L BUN 10 (7-17) mg/dL Creatinine 0.63 (0.52-1.04) mg/dL Estimated GFR > 60 (>60) mL/min BUN/Creatinine Ratio 15.9 (6-22) Glucose 93 (80-110) mg/dL Calcium 9.4 (8.4-10.2) mg/dL Total Bilirubin 0.9 (0.2-1.3) mg/dL AST 27 (14-36) IU/L ALT 18 (<35) IU/L Alkaline Phosphatase 88 (38-126) U/L Total Protein 8.0 (6.3-8.2) g/dL Albumin 4.4 (3.5-5.0) g/dL Globulin 3.6 (1.7-4.1) g/dL Albumin/Globulin Ratio 1.2 (1.0-2.8) Lipase 275 (23-300) U/L Imaging Data Abdominal x-ray: Radiologist's Impression: PROCEDURE:? XR ABDOMEN MIN 2V ? INDICATIONS:? no BM since . Abd Pain ? TECHNIQUE:? 2 views of the abdomen were acquired.? ? COMPARISON:? CT, CT PEL WO CON, 05/23/2021, 11:12. ? FINDINGS:? Surgical changes and devices:? L3 through L5 fusion. ? Bowel:? No pneumoperitoneum.? The bowel gas pattern is nonobstructive.? Mild to moderate colonic stool. ? Soft tissues:? No masses; visualized solid organ contours appear normal in size.? No suspicious abdominal calcifications.? ? Bones:? No suspicious bony abnormalities.? ? IMPRESSION:? Mild to moderate colonic stool without obstruction. [facility] Narrative Medical decision making narrative: Patient does have a mildly distended abdomen but it is soft. No vomiting. Is still passing flatus. No fevers. Labs are unremarkable. X-ray shows no overt signs of bowel obstruction. Upon my evaluation of the patient she had been waiting for approximately 4 hours. She states she did not want to wait any longer. She stated that [place] I did inform her that I do recommend that we obtain a CT scan of her abdomen to evaluate for potential bowel obstruction or diverticulitis. We would not be able to diagnose these based off of her current x-ray or by her labs. The patient expressed understanding of this. Her daughters were at bedside and they expressed understanding however she still would like to be discharged so that she can catch the very back home. We did discuss using laxatives at home to try to help potential constipation and she was given strict return precautions. Patient was alert and oriented x3 in my opinion has capacity to make decisions. Discharge Plan Departure Patient Disposition: Home Clinical Impression: Abdominal distension, Abdominal pain Instructions: Constipation, DI for Abdominal Pain-Adult Activity Restrictions/Additional Instructions: You opted to be discharged from the hospital prior to obtaining any laboratory results or a CT scan despite our discussion about other potential abdominal issue such as a bowel obstruction or diverticulitis. I do recommend that you use the laxatives at home like we discussed. Return to the emergency department for new or worsening symptoms. Prescriptions: No Action meclizine 12.5 mg tablet 12.5 mg PO BID PRN (Reason: dizziness) Qty: 6 0RF meclizine 12.5 mg tablet 12.5 mg PO BID PRN (Reason: vertigo) Qty: 6 0RF (DME) Disabled Parking See Rx Instructions .ROUTE .MEDSUPPLY Qty: 1 0RF Rx Instructions: Patient qualifies for disabled parking as per the attached form. atorvastatin 40 mg tablet 40 mg PO DAILY Qty: 90 3RF multivitamin tablet 1 tab PO DAILY aspirin 81 mg tablet,delayed release (DR/EC) 81 mg PO DAILY methocarbamol 500 mg tablet 500 mg PO oxycodone 5 mg tablet See Rx Instructions PO Q4H PRN Patient Comments: Only takes 1 tablet at night Rx Instructions: 1 to 2 tabs PO every 4 hours PRN; calcium carbonate-vitamin D3 600 mg-10 mcg (400 unit) capsule PO cholecalciferol (vitamin D3) 25 mcg (1,000 unit) capsule 25 mcg PO DAILY docusate sodium 250 mg capsule 250 mg PO DAILY enoxaparin 30 mg/0.3 mL syringe 30 mg SUBCUT Q12H polyethylene glycol 3350 17 gram powder in packet 17 g PO DAILY sennosides [senna] 8.6 mg tablet 8.6 mg PO DAILY acetaminophen [Tylenol Extra Strength] 500 mg tablet 500 mg PO Q4H PRN (Reason: pain) Qty: 60 0RF Rx Instructions: take 1 tablet by mouth every four hours as needed for pain Referrals: Miguel Ruano MD [Primary Care Provider] - Stand Alone Forms: Patient Portal/API
[2022-10-05 19:47] VITALS: BP 177/79; PULSE 84; RESP 16; O2SAT 97
[2022-10-05 19:47] LABS: Add Manual Diff / Slide Review NO; Basophils Absolute Auto 100 /uL (0-100); Basophils Percent Auto 1.4 % (0-2); Eosinophils Absolute Auto 100 /uL (0-450); Eosinophils Percent Auto 1.9 % (2-4); Hematocrit 41.5 % (36-46); Hemoglobin 14.3 g/dL (12.0-16.0); Lymphocytes Absolute Auto 1900 /uL (1100-4500); Lymphocytes Percent Auto 36.8 % (25-40); Mean Corpuscular HGB Conc 34.5 % (30-36); Mean Corpuscular Hemoglobin 36.8 PG (26-34); Mean Corpuscular Volume 106.5 fL (80-100); Monocytes Absolute Auto 500 /uL (0-900); Monocytes Percent Auto 10.1 % (3-14); Neutrophils Absolute Auto 2500 /uL (1500-7000); Neutrophils Percent Auto 49.8 % (50-75); Platelet Count 263 X10^3/uL (150-400); Red Blood Cell Count 3.89 X10^6/uL (4.0-5.2); Red Cell Distribution Width 14.8 % (11.6-14.8); White Blood Cell Count 5.1 X10^3/uL (4.5-11.0)
[2022-10-05 19:53] LABS: Alanine Aminotransferase 18 IU/L (<35); Albumin 4.4 g/dL (3.5-5.0); Albumin Globulin Ratio 1.2 (1.0-2.8); Alkaline Phosphatase 88 U/L (38-126); Aspartate Aminotransferase 27 IU/L (14-36); BUN Creatinine Ratio 15.9 (6-22); Bilirubin Total 0.9 mg/dL (0.2-1.3); Blood Urea Nitrogen 10 mg/dL (7-17); Calcium 9.4 mg/dL (8.4-10.2); Carbon Dioxide 26 mmol/L (22-32); Chloride 100 mmol/L (98-107); Estimated Glomerular Filt Rate > 60 mL/min (>60); Globulin 3.6 g/dL (1.7-4.1); Glucose 93 mg/dL (80-110); HEMOLYSIS < 15 (0-50); Lipase 275 U/L (23-300); Sodium 136 mmol/L (137-145)
== END 2022-10-05 19:48 | disposition home or self-care (01) ==
PROVIDERS: Emergency Provider Emergency Medicine; Family Provider Internal Medicine; PCP Internal Medicine
DX: R14.0 Abdominal distension (gaseous) (principal); R10.9 Unspecified abdominal pain
CPT/HCPCS: 74019; 80053; 83690; 85025; 99281; 99284

== ENCOUNTER → 2022-10-07 09:59 | Outpatient (CLI) | payer MEDICARE, OTHER, SELFPAY ==
[2022-10-05 15:23] VITALS: BMI 21.0
--- NOTE | 2022-10-07 10:00 | DI.CT.S_ITS ---
PROCEDURE: CT ABDOMEN PELVIS W CON INDICATIONS: abdominal pain and TECHNIQUE: After the administration of oral and intravenous contrast, axial sections were acquired from the lung bases to the pubic symphysis. Coronal and sagittal reformats were performed. For radiation dose reduction, the following was used: automated exposure control, adjustment of mA and/or kV according to patient size. COMPARISON:[facility], CT, CT ABDOMEN PELVIS W CON, 05/11/2018, 7:49. FINDINGS: Image quality: Excellent. Lung bases: Unremarkable. Heart: No significant findings. ABDOMEN: Liver: Unremarkable. Gallbladder: Unremarkable Biliary ducts: Unremarkable. Pancreas: Unremarkable. Spleen: Unremarkable. Adrenal Glands: Unremarkable. Kidneys and Ureters: Unremarkable. Stomach and Bowel: Advanced sigmoid and proximal rectal diverticulosis. No definite diverticulitis identified. Peritoneum: No abnormal intraperitoneal fluid. No free air. Ventral Wall: No hernia. Abdominal Nodes: No retroperitoneal or mesenteric adenopathy by size criteria. Vessels: Aorta and inferior vena cava are normal in size. Extensive aortic and iliac calcifications. Extensive artifact from lumbar metal makes it difficult to evaluate the common iliacs. However, hemodynamically significant common iliac artery stenotic disease may be present. PELVIS: Pelvic Organs: Unremarkable. Bladder: Unremarkable. Pelvic Nodes: No enlarged lymph nodes. Miscellaneous: No inguinal hernias are seen. Bones: Remote posterior lateral aiyana and pedicle screw fixation at L4 through S1. Chronic moderate T11 fracture and severe T12 fracture. Chronic mild L1 fracture. IMPRESSION: 1. Extensive sigmoid diverticulosis. Although no diverticulitis is identified, mild diverticulitis is not excluded. 2. Peripheral vascular disease with question of hemodynamically significant bilateral common iliac artery stenoses. 3. Osteoporosis with chronic compressions. Dictated by: Eldon Rogers M.D. on 10/07/2022 at 12:11 Approved by: Eldon Rogers M.D. on 10/07/2022 at 12:19
[2022-10-07 12:01] LABS: Appearance Urine UA CLEAR; Bilirubin Urine UA NEGATIVE (NEGATIVE); Color Urine UA YELLOW; Glucose Urine UA NEGATIVE (Negative); Ketones Urine UA NEGATIVE (NEGATIVE); Leukocyte Esterase Urine UA TRACE (NEGATIVE); Nitrite Urine UA NEGATIVE (Negative); Occult Blood Urine UA TRACE-INTACT (Negative); Protein Urine UA NEGATIVE (Negative)
[2022-10-07 12:14] LABS: Bacteria Urine None Seen; Culture Indicated Urine Cult Not Indicated; RBC Urine 0-1/HPF (0-5/HPF); Squamous Epithelial Cell Urine 0-1 /HPF (0-5/HPF); WBC Urine 0-1/HPF (0-5/HPF)
[2022-10-07 12:35] LABS: Add Manual Diff / Slide Review NO; Basophils Absolute Auto 0 /uL (0-100); Basophils Percent Auto 0.5 % (0-2); Eosinophils Absolute Auto 100 /uL (0-450); Hematocrit 39.2 % (36-46); Hemoglobin 13.5 g/dL (12.0-16.0); Lymphocytes Absolute Auto 1600 /uL (1100-4500); Lymphocytes Percent Auto 23.2 % (25-40); Mean Corpuscular HGB Conc 34.3 % (30-36); Mean Corpuscular Hemoglobin 36.4 PG (26-34); Mean Corpuscular Volume 106.2 fL (80-100); Monocytes Absolute Auto 700 /uL (0-900); Monocytes Percent Auto 9.3 % (3-14); Neutrophils Absolute Auto 4500 /uL (1500-7000); Platelet Count 284 X10^3/uL (150-400); Red Cell Distribution Width 14.6 % (11.6-14.8)
[2022-10-07 13:00] LABS: BUN Creatinine Ratio 12.7 (6-22); Blood Urea Nitrogen 8 mg/dL (7-17); Calcium 9.3 mg/dL (8.4-10.2); Carbon Dioxide 28 mmol/L (22-32); Chloride 99 mmol/L (98-107); Estimated Glomerular Filt Rate > 60 mL/min (>60); Glucose 95 mg/dL (80-110); HEMOLYSIS < 15 (0-50); Potassium 3.7 mmol/L (3.4-5.1); Sodium 135 mmol/L (137-145)
[2022-10-07 13:44] LABS: Vitamin B12 254 pg/mL (239-931)
== END ==
PROVIDERS: Family Provider Internal Medicine; PCP Internal Medicine; Referring Provider Family Medicine; Visit Provider Family Medicine
DX: K57.30 Diverticulosis of large intestine without perforation or abscess without bleeding (principal); R14.0 Abdominal distension (gaseous); R10.9 Unspecified abdominal pain; M80.08XA Age-related osteoporosis with current pathological fracture, vertebra(e), initial encounter for fracture; I73.9 Peripheral vascular disease, unspecified; I10 Essential (primary) hypertension; D51.3 Other dietary vitamin B12 deficiency anemia
CPT/HCPCS: 36415; 74177; 80048; 81001; 82607; 85025; Q9967

== ENCOUNTER → 2022-10-09 10:47 | Outpatient (CLI) | payer MEDICARE, OTHER, SELFPAY ==
[2022-10-05 15:23] VITALS: BMI 21.0
--- NOTE | 2022-10-09 10:48 | DI.CT.S_ITS ---
PROCEDURE: CT CHEST W CON INDICATIONS: Chronic smoking history, weight loss TECHNIQUE: After the administration of intravenous contrast, 5 mm thick sections acquired from the pulmonary apices to the posterior costophrenic angles. 1 mm axial lung, 5 mm thick coronal and sagittal reformats and 7 mm axial MIP were acquired. For radiation dose reduction, the following was used: automated exposure control, adjustment of mA and/or kV according to patient size. COMPARISON: CT chest 05/09/2018. FINDINGS: Image quality: Excellent. Lungs and pleura: No acute air space opacities. No pleural effusions or pneumothorax. Severe emphysematous changes. Right upper lobe calcified granuloma. Scattered micro nodules. No suspicious pulmonary nodules. Central and peripheral airways are patent and normal in caliber. Mediastinum: Heart size is normal. No pericardial effusion. No mediastinal or hilar adenopathy by size criteria. Thoracic aorta and central pulmonary arteries are normal in size. Atherosclerotic vascular calcifications including the coronary arteries. Esophagus is normal in caliber. No hiatal hernia. Bones and chest wall: No suspicious bony lesions. Decreased osseous mineralization and multilevel degenerative changes of the spine. Multiple vertebral body compression deformities, most of which appear stable compared to chest x-ray 07/25/2020. No axillary or supraclavicular adenopathy by size criteria. Thyroid gland is normal. Left breast calcification. Abdomen: See separately dictated CT of the abdomen. IMPRESSION: 1. Severe emphysematous changes. No suspicious pulmonary nodules. Few scattered pulmonary micronodules are present. 2. Decreased osseous mineralization with multiple vertebral body compression deformities, appears similar compared to 07/25/2020 chest x-ray. 3. Left breast calcification, correlate with age-appropriate mammography. Dictated by: Gaston Parry M.D. on 10/09/2022 at 12:19 Approved by: Gaston Parry M.D. on 10/09/2022 at 12:25
== END ==
PROVIDERS: Family Provider Internal Medicine; PCP Internal Medicine; Referring Provider Family Medicine; Visit Provider Family Medicine
DX: I25.10 Atherosclerotic heart disease of native coronary artery without angina pectoris (principal); M43.9 Deforming dorsopathy, unspecified; R14.0 Abdominal distension (gaseous); R10.9 Unspecified abdominal pain; N64.89 Other specified disorders of breast; I10 Essential (primary) hypertension; K57.30 Diverticulosis of large intestine without perforation or abscess without bleeding; D51.3 Other dietary vitamin B12 deficiency anemia; Z87.891 Personal history of nicotine dependence
CPT/HCPCS: 71260

== ENCOUNTER 2023-01-02 09:27 | Emergency (ER) | payer MEDICARE, OTHER, SELFPAY ==
[2023-01-02 09:59] VITALS: BP 165/84; PULSE 82; RESP 16; TEMP 36.3; O2SAT 99; BMI 18.1
[2023-01-02 11:19] VITALS: BP 173/74; PULSE 74; RESP 18; TEMP 36.6; O2SAT 98
--- NOTE | 2023-01-02 11:39 | ED_ITS ---
HPI - Back Pain/Injury <Sunil Jeffery PA-C - Last Filed: 01/02/23 11:50> General Chief Complaint: Back Pain/Injury Stated Complaint: BACK PAIN Time Seen by Provider: 01/02/23 11:16 History of Present Illness HPI Narrative: This is a 82-year-old female presents emergency department due to upper trapezius pain which began couple of days ago after she reports lifting up a vacuum. She isn't report any falls or trauma to the upper back or cervical area. She denies any numbness or tingling going down her upper extremities. Denies any chest pain, shortness of breath, or any other concerning signs or symptoms. She states that she is taken ibuprofen, Tylenol, and a muscle relaxer she had from a previous hospitalization which have not helped with the pain. Related Data Home Medications Medication Instructions Recorded Confirmed multivitamin 1 tab PO DAILY 05/30/18 10/07/22 aspirin 81 mg tablet,delayed 81 mg PO DAILY 01/01/21 10/07/22 release calcium carbonate 600 mg-vitamin cap PO 06/25/21 10/07/22 D3 10 mcg (400 unit) capsule cholecalciferol (vitamin D3) 25 25 mcg PO DAILY 06/25/21 10/07/22 mcg (1,000 unit) capsule Previous Rx's Medication Instructions Recorded acetaminophen 500 mg tablet 500 mg PO Q4H PRN pain #60 tabs 11/25/18 (Tylenol Extra Strength) Disabled Parking #1 ea 05/29/21 atorvastatin 40 mg tablet 40 mg PO DAILY #90 tabs 12/23/22 cyclobenzaprine 10 mg tablet 10 mg PO BEDTIME PRN muscle spasm 01/02/23 #14 tabs lidocaine 4 % topical patch 1 patch topical DAILY PRN pain #15 01/02/23 ea Allergies Allergy/AdvReac Type Severity Reaction Status Date / Time No Known Drug Allergies Allergy Verified 10/07/22 09:11 Review of Systems <Sunil Jeffery PA-C - Last Filed: 01/02/23 11:50> Review of Systems Narrative: GENERAL: Denies chills, fatigue, malaise, fever, sweats. HEENT: Denies sinus pain, ear pain, sore throat, difficulty swallowing, dizziness. RESPIRATORY: Denies dyspnea, cough, wheezing, hemoptysis, sputum. CARDIOVASCULAR: Denies chest pain, palpitations, orthopnea, edema, GASTROINTESTINAL: Denies nausea, vomiting, abdominal pain, diarrhea, constipation, melena. : Denies dysuria, frequency, incontinence, hematuria, urinary retention. MUSCULOSKELETAL: Reports pain to bilateral trapezius areas SKIN: Denies rash, skin lesions, or other NEUROLOGIC: Denies weakness, headache, numbness, change in speech, confusion, seizures, incoordination. PSYCHIATRIC: No concerning psychosocial issues. 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 sohail/scientologist: None travel history: recent leisure activities: sports and other Smoking Status: Former smoker Tobacco: How many years used: 40 Smokeless tobacco user: other quit status: quit date established second hand exposure: No alcohol intake: current substance use type: does not use Smoking Status: Former smoker alcohol intake frequency: 0-2 drinks per day Substance Use Type: does not use Exam <Sunil Jeffery PA-C - Last Filed: 01/02/23 11:50> Narrative Exam Narrative: GENERAL: Well-developed patient, in mild distress. HEAD: Atraumatic. Normocephalic. EYES: Pupils equal round and reactive. Extraocular motions intact. No scleral icterus. No injection or drainage. ENT: Nose without bleeding, purulent drainage. Throat without erythema, tonsillar hypertrophy or exudate. Airway patent. NECK: Trachea midline. Non tender CARDIOVASCULAR: Regular rate and rhythm without murmurs, gallops, or rubs. RESPIRATORY: Clear to auscultation. Breath sounds equal bilaterally. No wheezes, rales, or rhonchi. GASTROINTESTINAL: Abdomen soft, non-tender, nondistended. EXTREMITIES: No edema or joint tenderness. BACK: Tenderness to palpation to the bilateral trapezius areas NEURO: AOx3. SKIN: No rash or erythema of visible areas Initial Vital Signs Initial Vital Signs: Vital Signs Temperature 97.4 F L 01/02/23 09:59 Pulse Rate 82 01/02/23 09:59 Respiratory Rate 16 01/02/23 09:59 Blood Pressure 165/84 H 01/02/23 09:59 Pulse Oximetry 99 01/02/23 09:59 Oxygen Delivery Method Room Air 01/02/23 09:59 <Luh Mejia DO - Last Filed: 01/02/23 14:56> Initial Vital Signs Initial Vital Signs: Vital Signs Temperature 97.4 F L 01/02/23 09:59 Pulse Rate 82 01/02/23 09:59 Respiratory Rate 16 01/02/23 09:59 Blood Pressure 165/84 H 01/02/23 09:59 Pulse Oximetry 99 01/02/23 09:59 Oxygen Delivery Method Room Air 01/02/23 09:59 Course <Sunil Jeffery PA-C - Last Filed: 01/02/23 11:50> Orders Ordered: Discontinued Medications Ketorolac Tromethamine (Ketorolac 30 Mg/Ml Vial) 15 mg IM NOW ONE Stop: 01/02/23 11:51 Last Admin: 01/02/23 11:55 Dose: 15 mg Documented By: VARUN Vital Signs Vital signs: Vital Signs - 8 hr 01/02/23 09:59 01/02/23 11:19 Temperature 97.4 F L 97.8 F Pulse Rate 82 74 Respiratory Rate 16 18 Blood Pressure 165/84 H 173/74 H Pulse Oximetry 99 98 Oxygen Delivery Method Room Air Room Air <Luh Mejia DO - Last Filed: 01/02/23 14:56> Orders Ordered: Discontinued Medications Ketorolac Tromethamine (Ketorolac 30 Mg/Ml Vial) 15 mg IM NOW ONE Stop: 01/02/23 11:51 Last Admin: 01/02/23 11:55 Dose: 15 mg Documented By: VARUN Vital Signs Vital signs: Vital Signs - 8 hr 01/02/23 09:59 01/02/23 11:19 Temperature 97.4 F L 97.8 F Pulse Rate 82 74 Respiratory Rate 16 18 Blood Pressure 165/84 H 173/74 H Pulse Oximetry 99 98 Oxygen Delivery Method Room Air Room Air MDM - Back Pain/Injury <Sunil Jeffery PA-C - Last Filed: 01/02/23 11:50> MDM Narrative Medical decision making narrative: MDM * differential diagnosis includes but not limited to ACS, muscular pain, fracture * Prior records reviewed: Patient was last seen here in the emergency department 3 months ago due to abdominal distention. History of diverticulitis. Had not had a bowel movement in a couple of days. History of aortic bifurcation syndrome, central lobular emphysema, diverticulosis, hypertension, lumbar spondylosis, osteoporosis, lumbar fusion in 2018. * My lab interpretation: None obtained * My imgaing interpretation: None obtained * Clinical Decision Rules/Scores evaluated: None * Independent discussions with: None ED Course: This is a 82-year-old female presents emergency department due to suspected muscular soreness after lifting a vacuum. IM Toradol given as patient reports no kidney issues, we will prescribe muscle relaxants and lidocaine patches. Recommended she continue with tylenol as needed for the pain as well as other conservative measures. Shared Decision Making: Discussed plan with patient who is comfortable with the plan Social Considerations: None Disposition: Discharged to home Discharge Plan Departure Patient Disposition: Home Clinical Impression: Muscle pain Instructions: DI for Back Strain or Sprain Activity Restrictions/Additional Instructions: Thank you for coming to the [facility] Emergency Department today. As discussed I suspect there is a very low likelihood of any kind of fractures based on what you reported. The Toradol give me today should help. Please take the muscle relaxant as prescribed. Also recommend light stretching and light activity to help ?loosened up? the muscles. You may also use Tylenol and ibuprofen as needed for the pain. Please start taking the ibuprofen until tomorrow. I hope you feel better soon. Please follow up with your primary care provider within a week if your symptoms continue. If you do not have a primary care provider please contact the [facility] Resource line at [phone]. They will ask some questions about your medical history and help you get set up with a provider in the community. Prescriptions: New cyclobenzaprine 10 mg tablet 10 mg PO BEDTIME PRN (Reason: muscle spasm) Qty: 14 0RF lidocaine 4 % adhesive patch,medicated 1 patch topical DAILY PRN (Reason: pain) Qty: 15 0RF Rx Instructions: may leave on for up to 12 hrs No Action (DME) Disabled Parking See Rx Instructions .ROUTE .MEDSUPPLY Qty: 1 0RF Rx Instructions: Patient qualifies for disabled parking as per the attached form. atorvastatin 40 mg tablet 40 mg PO DAILY Qty: 90 0RF Rx Instructions: APPT DUE WITH [facility]. PLEASE CALL TO SCHEDULE APPT [facility] AT EARLIEST CONVENIENCE. THANK YOU 12/23/22. multivitamin tablet 1 tab PO DAILY aspirin 81 mg tablet,delayed release (DR/EC) 81 mg PO DAILY calcium carbonate-vitamin D3 600 mg-10 mcg (400 unit) capsule PO cholecalciferol (vitamin D3) 25 mcg (1,000 unit) capsule 25 mcg PO DAILY acetaminophen [Tylenol Extra Strength] 500 mg tablet 500 mg PO Q4H PRN (Reason: pain) Qty: 60 0RF Rx Instructions: take 1 tablet by mouth every four hours as needed for pain Referrals: Miguel Ruano MD [Primary Care Provider] - Stand Alone Forms: Patient Portal/API ED Sign-out <Luh Mejia DO - Last Filed: 01/02/23 14:56> Cosign ED Attending Celsaature Attestation: I was immediately available in the department for consultation.
[2023-01-02] MEDS: KETOROLAC 30 MG/ML VIAL 15 MG IM (11:55)
== END 2023-01-02 12:20 | disposition home or self-care (01) ==
PROVIDERS: Emergency Provider Physician Assistant Medical; Family Provider Internal Medicine; PCP Internal Medicine
DX: M79.18 Myalgia, other site (principal)
CPT/HCPCS: 96372; 99283; J1885

== ENCOUNTER → 2023-11-02 11:13 | Outpatient (CLI) | payer MEDICARE, OTHER, SELFPAY ==
[2023-09-26 11:58] VITALS: BMI 21.0
--- NOTE | 2023-11-02 11:16 | DI.RAD.S_ITS ---
PROCEDURE: XR LUMBAR SPINE 2-3V INDICATIONS: chronic low back pain; hx compression fx TECHNIQUE: 3 views of the lumbar spine were acquired. COMPARISON: [facility], CR, XR LUMBAR SPINE 2-3V, 06/25/2021, 14:26. FINDINGS: Lumbar spine curvature and alignment: Normal. Bones: Severe T9, mild T11, moderate T12, and mild L1 chronic compression fractures present. likely chronic chronic and due to osteoporosis. Disc spaces: Moderate T12-L1 severe L1-2 moderate L2-3 degenerative disc disease noted. L4-5 L5-S1 posterior fusion changes provided by pedicle screw show interbody strut appreciated. There prosthetic discs at L4-5 L5-S1 which appear normally position. Intervertebral foramen: Grossly normal in width. Soft tissues: No soft tissue swelling, calcification or mass. IMPRESSION: Old osteoporotic compression fractures. Degeneration. L4-5 L5-S1 fusion normal alignment. Dictated by: Miguel Walker M.D. on 11/03/2023 at 7:17 Approved by: Miguel Walker M.D. on 11/03/2023 at 7:25
[2023-11-02 12:03] LABS: Add Manual Diff / Slide Review NO; Basophils Absolute Auto 0 /uL (0-100); Basophils Percent Auto 0.6 % (0-2); Eosinophils Absolute Auto 100 /uL (0-450); Eosinophils Percent Auto 1.3 % (2-4); Hematocrit 43.3 % (36-46); Hemoglobin 14.7 g/dL (12.0-16.0); Lymphocytes Absolute Auto 1600 /uL (1100-4500); Lymphocytes Percent Auto 28.3 % (25-40); Mean Corpuscular HGB Conc 33.9 % (30-36); Mean Corpuscular Hemoglobin 35.5 PG (26-34); Mean Corpuscular Volume 104.8 fL (80-100); Monocytes Absolute Auto 400 /uL (0-900); Monocytes Percent Auto 6.9 % (3-14); Neutrophils Absolute Auto 3500 /uL (1500-7000); Neutrophils Percent Auto 62.9 % (50-75); Platelet Count 231 X10^3/uL (150-400); Red Blood Cell Count 4.14 X10^6/uL (4.0-5.2); Red Cell Distribution Width 14.1 % (11.6-14.8); White Blood Cell Count 5.5 X10^3/uL (4.5-11.0)
[2023-11-02 12:29] LABS: Alanine Aminotransferase 20 IU/L (<35); Albumin 4.6 g/dL (3.5-5.0); Albumin Globulin Ratio 1.4 (1.0-2.8); Alkaline Phosphatase 121 U/L (38-126); Aspartate Aminotransferase 34 IU/L (14-36); BUN Creatinine Ratio 12.8 (6-22); Bilirubin Total 1.2 mg/dL (0.2-1.3); Blood Urea Nitrogen 12 mg/dL (7-17); Calcium 9.2 mg/dL (8.4-10.2); Carbon Dioxide 26 mmol/L (22-32); Chloride 100 mmol/L (98-107); Estimated Glomerular Filt Rate 60 mL/min (>60); Globulin 3.4 g/dL (1.7-4.1); Glucose 109 mg/dL (80-110); HEMOLYSIS < 15 (0-50); Magnesium 1.8 mg/dL (1.6-2.3); Potassium 4.1 mmol/L (3.4-5.1); Sodium 136 mmol/L (137-145)
[2023-11-02 13:16] LABS: Vitamin B12 Reflex MMA if <400 200 pg/mL (239-931)
[2023-11-02 17:09] LABS: Vitamin D 25 Hydroxy (D3) 25.3 ng/mL (30.0-100.0)
[2023-11-07 23:09] LABS: Methylmalonic Acid,Serum 349 nmol/L (0-378)
== END ==
PROVIDERS: Family Provider Internal Medicine; PCP Family Medicine; Referring Provider Family Medicine; Visit Provider Family Medicine
DX: I10 Essential (primary) hypertension (principal); M81.0 Age-related osteoporosis without current pathological fracture; M54.50 Low back pain, unspecified; E78.5 Hyperlipidemia, unspecified; I73.9 Peripheral vascular disease, unspecified; Z87.310 Personal history of (healed) osteoporosis fracture; Z98.1 Arthrodesis status
CPT/HCPCS: 36415; 72100; 80053; 82306; 82607; 83735; 83921; 85025

== ENCOUNTER → 2023-11-14 09:49 | Outpatient (CLI) | payer MEDICARE, OTHER, SELFPAY ==
[2023-09-26 11:58] VITALS: BMI 21.0
--- NOTE | 2023-11-14 09:51 | DI.RAD.S_ITS ---
PROCEDURE: XR DEXA AXIAL SKELETON INDICATIONS: chronic low back pain; hx compression fx COMPARISON: None. FINDINGS: Lumbar Spine (L4 excluded due to surgical hardware): Bone mineral density 0.840 g/cm2, T score -1.6, osteopenia. Left Hip: Bone mineral density 0.460 g/cm2, T score negative for, osteoporosis. Left Femoral Neck: Bone mineral density 0.536 g/cm2, T score -2.8, osteoporosis. Right Hip: Bone mineral density 0.458 g/cm2, T score negative for, osteoporosis. Right Femoral Neck: Bone mineral density 0.4 g/cm2, T score negative for, osteoporosis. Left Forearm: Bone mineral density 0.537 g/cm2, T score new 2.6, osteoporosis. Fracture Risk Calculation (when applicable): Not reported due to osteoporosis diagnosis. (T score greater or equal to -1.0 to: NORMAL) (T score from -1.1 to -2.4: OSTEOPENIA) (T score less than or equal to -2.5: OSTEOPOROSIS) IMPRESSION: Osteoporosis. Follow-up guidelines as follows: Osteoporosis: Consider a repeat DEXA and Vertebral Fracture Assessment (VFA) exam in 2 years or sooner if medically necessary, to reassess this patient's status. Osteopenia: Consider a repeat DEXA in 2-3 years to reassess this patient's status, or if there is a new clinical indication. Normal: Consider a repeat DEXA in 5 years or sooner, or if there is a new clinical indication. All treatment decisions require clinical judgment and consideration of individual patient factors, including patient preferences, comorbidities, previous drug use, risk factors not captured in the FRAX model (e.g., frailty, falls, vitamin D deficiency, increased bone turnover, interval significant decline in bone density ) and possible under- or over-estimation of fracture risk by FRAX. In addition, the NOF Guide recommends that FDA-approved medical therapies be considered in postmenopausal women and men age >= 50 years with a: * Hip or vertebral (clinical or morphometric) fracture * T-score of <=-2.5 at the spine or hip * Ten-year fracture probability by FRAX of >= 3% for hip fracture or >=20% for major osteoporotic fracture. People with diagnosed cases of osteoporosis or at high risk for fracture should have regular bone mineral density tests. For patients eligible for Medicare, routine testing is allowed once every 2 years. The testing frequency can be increased to one year for patients who have rapidly progressing disease, those who are receiving or discontinuing medical therapy to restore bone mass, or have additional risk factors. Dictated by: Aniket Kimball M.D. on 11/14/2023 at 12:33 Approved by: Aniket Kimball M.D. on 11/14/2023 at 12:34
== END ==
PROVIDERS: Family Provider Internal Medicine; PCP Family Medicine; Referring Provider Family Medicine; Visit Provider Family Medicine
DX: M81.0 Age-related osteoporosis without current pathological fracture (principal); M54.50 Low back pain, unspecified
CPT/HCPCS: 77080; 77081

== ENCOUNTER → 2023-11-14 09:52 | Outpatient (CLI) | payer MEDICARE, OTHER, SELFPAY ==
[2023-09-26 11:58] VITALS: BMI 21.0
== END ==
LOC: RESP 09:52
PROVIDERS: Family Provider Internal Medicine; PCP Family Medicine; Referring Provider Family Medicine; Visit Provider Family Medicine
DX: J43.2 Centrilobular emphysema (principal); F17.210 Nicotine dependence, cigarettes, uncomplicated; M81.0 Age-related osteoporosis without current pathological fracture; M54.50 Low back pain, unspecified
CPT/HCPCS: 77080; 77081; 94060; 94726; 94729

== ENCOUNTER 2024-04-07 17:54 | Inpatient (IN) | payer MEDICARE, OTHER, SELFPAY ==
[2023-09-26 11:58] VITALS: BMI 21.0
[2024-04-07] VITALS (14 sets, daily range): BP systolic 132–179; BP diastolic 71–94; PULSE 77–116; RESP 13–24; TEMP 36.2–37.1; O2SAT 88–97; BMI 18.7
--- NOTE | 2024-04-07 18:06 | ED_ITS ---
HPI - Extremity Injury (Lower) General Chief Complaint: Extremity Injury, Lower Stated Complaint: Fall Time Seen by Provider: 04/07/24 18:06 Source: EMS Mode of arrival: EMS History of Present Illness HPI Narrative: 83-year-old female with a past medical history of hypertension hyperlipidemia comes into the ED via EMS after ground level fall on tile floor. Patient states that this was a mechanical trip and fall states that she tripped on something did not have any presyncopal or syncopal symptoms prior or after. Not on any blood thinners no LOC. Currently patient just complaining of left hip pain. Patient did receive 100 mcg of fentanyl prior to arrival by EMS. Patient states that she is only having pain to her left hip. Not complaining of any other pain or symptoms. Related Data Home Medications Medication Instructions Recorded Confirmed multivitamin 1 tab PO DAILY 05/30/18 04/02/24 aspirin 81 mg tablet,delayed 81 mg PO DAILY 01/01/21 04/02/24 release cholecalciferol (vitamin D3) 25 25 mcg PO DAILY 06/25/21 04/02/24 mcg (1,000 unit) capsule calcium 600 mg (as 1 cap PO DAILY 04/02/24 04/02/24 carbonate)-vitamin D3 10 mcg (400 unit) capsule Previous Rx's Medication Instructions Recorded acetaminophen 500 mg tablet 500 mg PO Q4H PRN pain #60 tabs 11/25/18 (Tylenol Extra Strength) Disabled Parking #1 ea 05/29/21 lidocaine 4 % topical patch 1 patch topical DAILY PRN pain #15 01/02/23 ea atorvastatin 40 mg tablet 40 mg PO DAILY #60 tabs 01/23/24 ibandronate 150 mg tablet 150 mg PO QMONTH #14 tabs 03/30/24 fluticasone furoate 100 1 inh inhalation DAILY #60 ea 04/02/24 mcg-vilanterol 25 mcg/dose inhalation powder (Breo Ellipta) Allergies Allergy/AdvReac Type Severity Reaction Status Date / Time No Known Drug Allergies Allergy Verified 04/02/24 07:28 Review of Systems Review of Systems Narrative: General: Denies fever, chills, weight loss HEENT: Denies headache, eye drainage, eye irritation, head trauma, sore throat, voice change Cardiovascular: Denies any chest pain, palpitations, shortness of breath, tachycardia Respiratory: Denies any shortness of breath, cough, wheeze, stridor GI/: Denies any abdominal pain, nausea, vomiting, diarrhea, bright red blood per rectum, melanotic stools, urinary frequency, urinary retention, dysuria, hematuria MSK: Positive left hip pain Skin: Denies any rashes, lesions, discoloration Neuro: Denies any headache, lightheadedness, dizziness, fainting, weakness Psych: Denies SI/HI Patient History Medical History (Updated 04/07/24 @ 19:57 by Gurdeep Amin DO) Acute renal failure (05/09/18) Centrilobular emphysema (05/09/18) Anemia Lumbar spondylosis Hypertension (06/06/17) Vascular claudication (04/20/16) Hyperlipidemia (04/20/16) 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) Former smoker (04/20/16) Peripheral arterial disease (02/13/16) Osteoporosis (04/22/15) Diverticulosis of large intestine without hemorrhage (04/22/15) Other dietary vitamin B12 deficiency anemia (02/17/15) Surgical History S/P lumbar fusion (12/02/17) Status post bilateral cataract extraction Hx of sinus surgery Family History Mother CAD (coronary artery disease) Social History marital status: number of children: 4 household members: spouse lives independently: Yes caregiver/support person: Yes (Daughters) housing: house pets and animals: No education level: high school occupational status: other 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 travel history: recent leisure activities: sports and other Smoking Status: Current some day smoker Tobacco: How many years used: 40 Smokeless tobacco user: other quit status: quit date established second hand exposure: No alcohol intake: current substance use type: does not use Smoking Status: Current some day smoker alcohol intake frequency: 0-2 drinks per day Alcohol type: wine Exam Narrative Exam Narrative: General: Cooperative, comfortable, well-developed, not in acute distress HEENT: Normocephalic, atraumatic, PERRLA, normal sclera, eyelids normal, Neck: Active full range of motion, atraumatic Chest: Normal to inspection, negative crepitus, no overlying erythema ecchymosis Respiratory: Normal respiratory effort, not in acute respiratory distress, clear to auscultation bilaterally negative cough, wheeze, tachypnea, rhonchi, rales Cardiology: Regular rate rhythm negative gallop, murmur, rubs GI/: Normal to inspection, soft, nonrigid, no tenderness to palpation, exam deferred MSK: Tenderness to palpation of the left hip, decreased active passive range of motion of the left hip secondary to pain, does appear to be slightly shortened externally rotate, there is no tenderness to palpation of any other bony prominences bilateral lower extremities neurovascularly intact, Skin: No rashes lesions noted Neuro: Alert awake oriented x3, moves all 4 extremities spontaneously, cranial nerves intact, able to answer all questions appropriately follows commands appropriately Psych: Cooperative, negative suicidal or homicidal ideations Initial Vital Signs Initial Vital Signs: Vital Signs Pulse Rate 77 04/07/24 17:55 Respiratory Rate 13 04/07/24 17:55 Pulse Oximetry 88 L 04/07/24 17:55 Oxygen Delivery Method Room Air 04/07/24 17:55 Course Orders Ordered: ED Orders 04/07/24 18:01 CBC Auto Diff [Complete Blood Count AUTO DIFF] Stat CMP [Comprehensive Metabolic Panel] Stat 04/07/24 18:14 XR hip w pel if done LT 2V Stat 04/07/24 18:16 CT cervical spine wo con Stat CT head/brain wo con Stat Discontinued Medications Morphine Sulfate (Morphine 4 Mg/Ml Inj) 2 mg IV NOW ONE Stop: 04/07/24 18:15 Last Admin: 04/07/24 18:28 Dose: 2 mg Documented By: Morphine Sulfate (Morphine 4 Mg/Ml Inj) 2 mg IV NOW ONE Stop: 04/07/24 18:54 Last Admin: 04/07/24 18:55 Dose: 2 mg Documented By: Morphine Sulfate (Morphine 4 Mg/Ml Inj) 2 mg IV NOW ONE Stop: 04/07/24 19:36 Last Admin: 04/07/24 20:01 Dose: 2 mg Documented By: Vital Signs Vital signs: Vital Signs - 8 hr 04/07/24 17:55 04/07/24 17:58 04/07/24 18:01 Pulse Rate 77 90 92 H Respiratory Rate 13 Blood Pressure Pulse Oximetry 88 L 93 96 Oxygen Delivery Method Room Air Oxygen Flow Rate 04/07/24 18:30 04/07/24 18:30 04/07/24 19:15 Pulse Rate 83 80 Respiratory Rate 19 Blood Pressure 132/94 H Pulse Oximetry 97 Oxygen Delivery Method Oxygen Flow Rate 04/07/24 19:18 04/07/24 19:18 04/07/24 19:30 Pulse Rate 116 H Respiratory Rate 16 Blood Pressure 179/79 H 169/74 H Pulse Oximetry 96 Oxygen Delivery Method Nasal Cannula Oxygen Flow Rate 2 04/07/24 19:30 04/07/24 20:00 04/07/24 20:01 Pulse Rate 82 103 H 98 H Respiratory Rate 18 24 21 Blood Pressure Pulse Oximetry 95 95 95 Oxygen Delivery Method Oxygen Flow Rate 04/07/24 20:01 Pulse Rate Respiratory Rate Blood Pressure 156/76 H Pulse Oximetry Oxygen Delivery Method Oxygen Flow Rate MDM - Extremity Injury (Lower) Differential Diagnosis Differential diagnosis: Likely other (Hip contusion, hip fracture,) Lab Data 04/07/24 18:01 04/07/24 18:01 Labs: Lab Results 04/07/24 Range/Units 18:01 WBC 5.9 (4.5-11.0) X10^3/uL RBC 3.66 L (4.0-5.2) X10^6/uL Hgb 12.6 (12.0-16.0) g/dL Hct 37.9 (36-46) % MCV 103.6 H (80-100) fL MCH 34.3 H (26-34) PG MCHC 33.1 (30-36) % RDW 13.5 (11.6-14.8) % Plt Count 176 (150-400) X10^3/uL Neut % (Auto) 55.7 (50-75) % Lymph % (Auto) 32.5 (25-40) % [place] % (Auto) 9.1 (3-14) % Eos % (Auto) 1.9 L (2-4) % Baso % (Auto) 0.8 (0-2) % Neut # (Auto) 3300 (8498-1821) /uL Lymph # (Auto) 1900 (5728-1953) /uL [place] # (Auto) 500 (0-900) /uL Eos # (Auto) 100 (0-450) /uL Baso # (Auto) 0 (0-100) /uL Sodium 139 (137-145) mmol/L Potassium 4.4 (3.4-5.1) mmol/L Chloride 105 (98-107) mmol/L Carbon Dioxide 26 (22-32) mmol/L BUN 23 H (7-17) mg/dL Creatinine 1.27 H (0.52-1.04) mg/dL Estimated GFR 41 L (>60) mL/min BUN/Creatinine Ratio 18.1 (6-22) Glucose 102 (80-110) mg/dL Calcium 8.7 (8.4-10.2) mg/dL Total Bilirubin 0.5 (0.2-1.3) mg/dL AST 40 H (14-36) IU/L ALT 26 (<35) IU/L Alkaline Phosphatase 73 (38-126) U/L Total Protein 7.0 (6.3-8.2) g/dL Albumin 4.0 (3.5-5.0) g/dL Globulin 3.0 (1.7-4.1) g/dL Albumin/Globulin Ratio 1.3 (1.0-2.8) Imaging Data Extremity x-ray #1: Radiologist's Impression: [address] [address] XRay Report Signed Patient: Taniya Johnson MR#: [id number] : 1940 Acct:[id number] Age/Sex: 83 / F Date of Service: 04/07/24 Loc: ED Accession Number: [id number] Procedure: XR hip w pel if done LT 2V Ordering Provider: Gurdeep Amin D.O. PROCEDURE: XR HIP W PEL IF DONE LT 2V INDICATIONS: pain s/p fall TECHNIQUE: AP pelvis with lateral view(s) of the left hip(s). [facility] 2[facility], [facility]23/[facility]21, 10:19. FINDINGS: Bones: Comminuted intertrochanteric fracture of the left hip with varus angulation. No dislocation. Soft tissues: The visualized bowel gas pattern is normal. No suspicious soft tissue calcifications. IMPRESSION: Comminuted intertrochanteric fracture of the left hip with varus angulation. CT scan - head: Radiologist's Impression: [place] [address] CT Scan Report Signed Patient: Taniya Johnson MR#: [id number] : 1940 Acct:[id number] Age/Sex: 83 / F Date of Service: 04/07/24 Loc: ED Accession Number: [id number] Procedure: CT head/brain wo con Ordering Provider: Gurdeep Amin D.O. PROCEDURE: CT HEAD/BRAIN WO CON INDICATIONS: Trauma TECHNIQUE: Noncontrast 4.5 mm thick angled axial sections acquired from the foramen magnum to the vertex, with coronal and sagittal reformats. For radiation dose reduction, the following was used: automated exposure control, adjustment of mA and/or kV according to patient size. COMPARISON: None. FINDINGS: Image quality: Diagnostic. CSF spaces: Basal cisterns are patent. No extra-axial fluid collections. The ventricles are symmetric in size and shape. Brain: No intracranial bleeds or masses. There is cerebral volume loss for age, with resultant ventricular and sulcal prominence. There are periventricular and deep white matter chronic small vessel ischemic changes. There is intracranial internal carotid artery atherosclerosis. Skull and face: Calvarium and visualized facial bones appear intact, without suspicious lesions. Sinuses: Visualized sinuses and mastoids are clear. IMPRESSION: No acute intracranial pathology. CT - cervical spine: Radiologist's Impression: [place] [address] CT Scan Report Signed Patient: Taniya Johnson MR#: [id number] : 1940 Acct:[id number] Age/Sex: 83 / F Date of Service: 04/07/24 Loc: ED Accession Number: [id number] Procedure: CT cervical spine wo con Ordering Provider: Gurdeep Amin D.O. PROCEDURE: CT CERVICAL SPINE WO CON INDICATIONS: trauma TECHNIQUE: Noncontrast 3 mm thick sections acquired from the skull base to the T4 level. Sagittal and coronal reformats were then constructed. For radiation dose reduction, the following was used: automated exposure control, adjustment of mA and/or kV according to patient size. COMPARISON: None. FINDINGS: Image quality: Excellent. Bones: No fractures or dislocations. Diffuse osteopenia. Cervical spondylosis. Old T5 compression incidentally noted. Visualized superior ribs are intact. Soft tissues: Prevertebral soft tissues are normal in thickness. No paravertebral hematomas. No apical pneumothoraces. IMPRESSION: 1. No displaced cervical fracture or traumatic subluxation. 2. Cervical spondylosis. 3. Osteopenia. 4. Old T5 compression. MDM Narrative Medical decision making narrative: 83-year-old female past medical history of hyperlipidemia hypertension chronic low back pain presents for ground level fall after mechanical trip and fall earlier today at home. Patient complaining of left sided hip pain. She denies head strike no LOC no blood thinners. Patient had lab work imaging performed here lab work unremarkable, x-ray of the hip showing left intertrochanteric hip fracture, CT head neck unremarkable patient will be admitted to the hospital for surgical fixation. And pain control 2006: Discussed case with orthopedic surgeon Dr. Ramos, reviewed the images agrees for patient to be admitted under Medicine states NPO at midnight. Call placed to hospitalist for admission The patient's management plan was discussed Dr. Pascual, who agrees to admit the patient to their service and assumes care of this patient at this time. Full admission orders will be placed by the primary team. Discharge Plan Departure Patient Disposition: Admitted As Inpatient Clinical Impression: Closed intertrochanteric fracture of left hip
--- NOTE | 2024-04-07 18:14 | DI.RAD.S_ITS ---
PROCEDURE: XR HIP W PEL IF DONE LT 2V INDICATIONS: pain s/p fall TECHNIQUE: AP pelvis with lateral view(s) of the left hip(s). COMPARISON: [facility], , XR HIP W PEL IF DONE RT 2V, 05/23/2021, 10:19. FINDINGS: Bones: Comminuted intertrochanteric fracture of the left hip with varus angulation. No dislocation. Soft tissues: The visualized bowel gas pattern is normal. No suspicious soft tissue calcifications. IMPRESSION: Comminuted intertrochanteric fracture of the left hip with varus angulation. Dictated by: Eldon Rogers M.D. on 04/07/2024 at 19:45 Approved by: Eldon Rogers M.D. on 04/07/2024 at 19:46
--- NOTE | 2024-04-07 18:16 | DI.CT.S_ITS ---
PROCEDURE: CT HEAD/BRAIN WO CON INDICATIONS: Trauma TECHNIQUE: Noncontrast 4.5 mm thick angled axial sections acquired from the foramen magnum to the vertex, with coronal and sagittal reformats. For radiation dose reduction, the following was used: automated exposure control, adjustment of mA and/or kV according to patient size. COMPARISON: None. FINDINGS: Image quality: Diagnostic. CSF spaces: Basal cisterns are patent. No extra-axial fluid collections. The ventricles are symmetric in size and shape. Brain: No intracranial bleeds or masses. There is cerebral volume loss for age, with resultant ventricular and sulcal prominence. There are periventricular and deep white matter chronic small vessel ischemic changes. There is intracranial internal carotid artery atherosclerosis. Skull and face: Calvarium and visualized facial bones appear intact, without suspicious lesions. Sinuses: Visualized sinuses and mastoids are clear. IMPRESSION: No acute intracranial pathology. Dictated by: Eldon Rogers M.D. on 04/07/2024 at 19:47 Approved by: Eldon Rogers M.D. on 04/07/2024 at 19:48
--- NOTE | 2024-04-07 18:16 | DI.CT.S_ITS ---
PROCEDURE: CT CERVICAL SPINE WO CON INDICATIONS: trauma TECHNIQUE: Noncontrast 3 mm thick sections acquired from the skull base to the T4 level. Sagittal and coronal reformats were then constructed. For radiation dose reduction, the following was used: automated exposure control, adjustment of mA and/or kV according to patient size. COMPARISON: None. FINDINGS: Image quality: Excellent. Bones: No fractures or dislocations. Diffuse osteopenia. Cervical spondylosis. Old T5 compression incidentally noted. Visualized superior ribs are intact. Soft tissues: Prevertebral soft tissues are normal in thickness. No paravertebral hematomas. No apical pneumothoraces. IMPRESSION: 1. No displaced cervical fracture or traumatic subluxation. 2. Cervical spondylosis. 3. Osteopenia. 4. Old T5 compression. Dictated by: Eldon Rogers M.D. on 04/07/2024 at 19:48 Approved by: Eldon Rogers M.D. on 04/07/2024 at 19:50
[2024-04-07 18:21] LABS: Add Manual Diff / Slide Review NO; Basophils Absolute Auto 0 /uL (0-100); Basophils Percent Auto 0.8 % (0-2); Eosinophils Absolute Auto 100 /uL (0-450); Eosinophils Percent Auto 1.9 % (2-4); Hematocrit 37.9 % (36-46); Hemoglobin 12.6 g/dL (12.0-16.0); Lymphocytes Absolute Auto 1900 /uL (1100-4500); Lymphocytes Percent Auto 32.5 % (25-40); Mean Corpuscular HGB Conc 33.1 % (30-36); Mean Corpuscular Hemoglobin 34.3 PG (26-34); Mean Corpuscular Volume 103.6 fL (80-100); Monocytes Absolute Auto 500 /uL (0-900); Monocytes Percent Auto 9.1 % (3-14); Neutrophils Absolute Auto 3300 /uL (1500-7000); Neutrophils Percent Auto 55.7 % (50-75); Platelet Count 176 X10^3/uL (150-400); Red Blood Cell Count 3.66 X10^6/uL (4.0-5.2); Red Cell Distribution Width 13.5 % (11.6-14.8); White Blood Cell Count 5.9 X10^3/uL (4.5-11.0)
--- NOTE | 2024-04-07 18:25 | PC.NURSE ---
Received pt from EMS. Sats on RA are 85-89% on RA after administration of Fentanyl. Pt was placed on 2L per NC by EMS. Verified that pt does desat on RA. Dr Amin notified. Administered pain medication per MD order for left hip pain.
[2024-04-07 18:26] LABS: Alanine Aminotransferase 26 IU/L (<35); Albumin Globulin Ratio 1.3 (1.0-2.8); Alkaline Phosphatase 73 U/L (38-126); Aspartate Aminotransferase 40 IU/L (14-36); BUN Creatinine Ratio 18.1 (6-22); Bilirubin Total 0.5 mg/dL (0.2-1.3); Blood Urea Nitrogen 23 mg/dL (7-17); Calcium 8.7 mg/dL (8.4-10.2); Carbon Dioxide 26 mmol/L (22-32); Chloride 105 mmol/L (98-107); Estimated Glomerular Filt Rate 41 mL/min (>60); Glucose 102 mg/dL (80-110); HEMOLYSIS < 15 (0-50); Potassium 4.4 mmol/L (3.4-5.1); Sodium 139 mmol/L (137-145)
[2024-04-07] MEDS: MORPHINE 4 MG/ML INJ 2 MG IV ×3 (18:28→20:01)
--- NOTE | 2024-04-07 18:50 | PC.NURSE ---
Pt continues to remain painful. MD notified. Family at nursing station requesting additional pain medication. Explained to family pt's response to medication and reduced sats. Administered medication for pain. Pt brought to CT scan.
--- NOTE | 2024-04-07 19:36 | PC.NURSE ---
Pt still remains painful after morphine administration. Dr Amin notified.
--- NOTE | 2024-04-07 20:50 | PC.NURSE ---
Pt continues to remain painful. Dr Amin notified. New orders received for IV pain medication.
[2024-04-07] MEDS: HYDROMORPHONE 0.5 MG INJ IV ×2 (21:05→22:05)
[2024-04-07] MEDS: SODIUM CHLORIDE 0.9% 1,000 ML 100 ML IV (22:06)
[2024-04-08] VITALS (21 sets, daily range): BP systolic 116–172; BP diastolic 38–86; PULSE 62–108; RESP 11–22; TEMP 36.4–37.4; O2SAT 88–98; BMI 18.7
--- NOTE | 2024-04-08 | DI.RAD.S_ITS ---
PROCEDURE: XR HIP W PEL IF DONE LT 2V INDICATIONS: IMNAILLING TECHNIQUE: 4 operative views of the hip were acquired. COMPARISON: [facility], [facility], XR HIP W PEL IF DONE LT 2V, 04/07/2024, 18:14. FINDINGS: 4 operative C-arm images obtained during ORIF of an intertrochanteric fracture of the left hip demonstrate no radiographic evidence of complications. IMPRESSION: Operative imaging obtained during ORIF of an intertrochanteric fracture of the left hip. Dictated by: Eldon Rogers M.D. on 04/08/2024 at 12:10 Approved by: Eldon Rogers M.D. on 04/08/2024 at 12:10
[2024-04-08] MEDS: HYDROMORPHONE 0.5 MG INJ 1 MG IV (00:13)
[2024-04-08] MEDS: HYDROMORPHONE 1 MG INJ IV ×2 (04:00→10:26)
[2024-04-08 05:02] LABS: Add Manual Diff / Slide Review NO; Basophils Absolute Auto 0 /uL (0-100); Basophils Percent Auto 0.5 % (0-2); Eosinophils Absolute Auto 0 /uL (0-450); Eosinophils Percent Auto 0.1 % (2-4); Hematocrit 30.8 % (36-46); Hemoglobin 10.5 g/dL (12.0-16.0); Lymphocytes Absolute Auto 1300 /uL (1100-4500); Lymphocytes Percent Auto 18.5 % (25-40); Mean Corpuscular Hemoglobin 35.2 PG (26-34); Mean Corpuscular Volume 103.4 fL (80-100); Monocytes Absolute Auto 700 /uL (0-900); Monocytes Percent Auto 9.7 % (3-14); Neutrophils Absolute Auto 5100 /uL (1500-7000); Neutrophils Percent Auto 71.2 % (50-75); Platelet Count 146 X10^3/uL (150-400); Red Blood Cell Count 2.98 X10^6/uL (4.0-5.2); Red Cell Distribution Width 13.5 % (11.6-14.8); White Blood Cell Count 7.1 X10^3/uL (4.5-11.0)
[2024-04-08 05:13] LABS: BUN Creatinine Ratio 21.3 (6-22); Blood Urea Nitrogen 23 mg/dL (7-17); Calcium 8.2 mg/dL (8.4-10.2); Carbon Dioxide 25 mmol/L (22-32); Chloride 105 mmol/L (98-107); Estimated Glomerular Filt Rate 50 mL/min (>60); Glucose 125 mg/dL (80-110); HEMOLYSIS < 15 (0-50); Potassium 4.3 mmol/L (3.4-5.1); Sodium 136 mmol/L (137-145)
--- NOTE | 2024-04-08 05:22 | PM.HP.1 ---
History of Present Illness History of Present Illness Chief complaint: Fall Narrative: 83-year-old female with past medical history of hyperlipidemia and hypertension presents with a ground-level fall and left hip pain. Per patient's report the patient was just ambulating when she accidentally tripped and fall onto her left hip. The patient denies any head injury or loss of consciousness. The patient states that her left hip pain was very severe and she is unable to bear weight on it. Otherwise the patient denies any recent fever, chills, nausea, vomiting, diarrhea, chest pain or shortness of breath. In our emergency room, the patient was found to have left hip fracture. Labs were relatively benign. Orthopedic surgeon was consulted and plan for surgery. The patient was given IV fluid and pain control. 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) Former smoker (04/20/16) Peripheral arterial disease (02/13/16) Osteoporosis (04/22/15) Diverticulosis of large intestine without hemorrhage (04/22/15) Other dietary vitamin B12 deficiency anemia (02/17/15) Surgical History S/P lumbar fusion (12/02/17) Status post bilateral cataract extraction Hx of sinus surgery Family History Mother CAD (coronary artery disease) Social History marital status: number of children: 4 household members: spouse lives independently: Yes caregiver/support person: Yes (Daughters) housing: house pets and animals: No education level: high school occupational status: other 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 travel history: recent leisure activities: sports and other Smoking Status: Current some day smoker Tobacco: How many years used: 40 Smokeless tobacco user: other quit status: quit date established second hand exposure: No alcohol intake: current substance use type: does not use Meds Home Medications and Allergies Home Medications Medication Instructions Recorded Confirmed Type multivitamin 1 tab PO DAILY 05/30/18 04/07/24 History acetaminophen 500 mg tablet 500 mg PO Q4H PRN pain #60 tabs 11/25/18 04/07/24 Rx (Tylenol Extra Strength) aspirin 81 mg tablet,delayed 81 mg PO DAILY 01/01/21 04/07/24 History release Disabled Parking #1 ea 05/29/21 04/07/24 Rx cholecalciferol (vitamin D3) 25 25 mcg PO DAILY 06/25/21 04/07/24 History mcg (1,000 unit) capsule lidocaine 4 % topical patch 1 patch topical DAILY PRN pain #15 01/02/23 04/07/24 Rx ea atorvastatin 40 mg tablet 40 mg PO DAILY #60 tabs 01/23/24 04/07/24 Rx ibandronate 150 mg tablet 150 mg PO QMONTH #14 tabs 03/30/24 04/07/24 Rx calcium 600 mg (as 1 cap PO DAILY 04/02/24 04/07/24 History carbonate)-vitamin D3 10 mcg (400 unit) capsule fluticasone furoate 100 1 inh inhalation DAILY #60 ea 04/02/24 04/07/24 Rx mcg-vilanterol 25 mcg/dose inhalation powder (Breo Ellipta) Allergies Allergy/AdvReac Type Severity Reaction Status Date / Time No Known Drug Allergies Allergy Verified 04/02/24 07:28 Review of Systems Review of Systems ROS: Yes All systems reviewed with the patient and are negative except as otherwise documented Exam Vital Signs (past 8 hours): - 04/07/24 21:35 04/07/24 22:14 04/08/24 03:45 Temperature 97.2 F L 98.2 F Pulse Rate 79 99 H Respiratory Rate 19 18 Blood Pressure 149/75 H 134/74 Pulse Oximetry 94 93 Oxygen Delivery Method Nasal Cannula Oxygen Flow Rate 2 2 Oxygen Delivery Method Nasal Cannula Oxygen Flow Rate 2 Narrative Exam Narrative: Physical Exam: GENERAL: The patient is not in any acute distressed. Awake and alert. HEENT: Nonicteric sclerae, PERRLA, EOMI. Oropharynx clear. Moist mucous membranes. Conjunctivae appear well perfused. HEART: Regular rate and rhythm without murmurs. No lower extremities edema. LUNGS: Clear to auscultation bilaterally. No wheezing, crackles or rhonchi ABDOMEN: Soft, positive bowel sounds, nontender. SKIN: No rash, no excessive bruising, petechiae, or purpura. NEUROLOGIC:LImimted movement in LLEs due to hip pain but otherwise AxO x 3. Cranial nerves II-XII intact without motor/sensory deficit. Objective Labs 04/08/24 04:13 04/07/24 18:01 Labs: Laboratory Results - last 24 hr 04/07/24 04/08/24 18:01 04:13 WBC 5.9 7.1 RBC 3.66 L 2.98 L Hgb 12.6 10.5 L Hct 37.9 30.8 L MCV 103.6 H 103.4 H MCH 34.3 H 35.2 H MCHC 33.1 34.0 RDW 13.5 13.5 Plt Count 176 146 L Neut % (Auto) 55.7 71.2 Lymph % (Auto) 32.5 18.5 L [place] % (Auto) 9.1 9.7 Eos % (Auto) 1.9 L 0.1 L Baso % (Auto) 0.8 0.5 Neut # (Auto) 3300 5100 Lymph # (Auto) 1900 1300 [place] # (Auto) 500 700 Eos # (Auto) 100 0 Baso # (Auto) 0 0 Sodium 139 Potassium 4.4 Chloride 105 Carbon Dioxide 26 BUN 23 H Creatinine 1.27 H Estimated GFR 41 L BUN/Creatinine Ratio 18.1 Glucose 102 Calcium 8.7 Total Bilirubin 0.5 AST 40 H ALT 26 Alkaline Phosphatase 73 Total Protein 7.0 Albumin 4.0 Globulin 3.0 Albumin/Globulin Ratio 1.3 Assessment & Plan Assessment & Plan narrative: Left hip fracture. Admit the patient to medical telemetry inpatient. NPO. IV fluid. IV pain medication as needed. Appreciate orthopedic consult for surgical intervention. Pain control. Of note the patient is medically stable and cleared for surgery though the patient does have moderate risk for cardiac event due to patient's age and comorbidity. Hypertension. Monitor blood pressure resume blood pressure medication. Hyperlipidemia. Resume home statin. CODE STATUS DNR/DNI but okay for intubation for procedure or surgery. DVT PPx SCDs for now due to plan OR Disposition likely rehab in 1 to 2 days. Time-Based Coding :: [TOTAL MINUTES] spent with patient and on the chart (including review of chart, obtaining history, exam, reviewing outside data, placing orders, documenting exam and treatment plan, and counseling patient) on [DATE]. Quality VTE Deep Vein Thrombosis/Pulmonary Embolism Present on Admission: No
--- NOTE | 2024-04-08 06:54 | PC.NURSE ---
pt urine output isn't adequate, bladder scan of 321 ml, orders for clayton catheter, pt refused, she stated the last time I had a catheter, it really burn
--- NOTE | 2024-04-08 07:37 | P.PN_ITS ---
Subjective Subjective Interval history: 83 yo female w/hx of HTN, peripheral artery disease with claudication, B12 deficiency, chronic diverticulosis, aortic bifurcation syndrome, centrilobular emphysema seen on imaging, osteoporosis, lumbar spondylosis status post lumbar fusion, remote tobacco use and HLD admitted w/comminuted intertrochanteric fx of the L hip w/varus angulation after GLF. Patient reportedly tripped and fell. She was not having syncopal or presyncopal symptoms. Plan is for patient to go to the operating room for repair today. Pt reports she is quite painful in her hip. Again reiterates she did not have any presyncopal sxs. She lives on [facility] w/her . Her grandson, who is an RN is present at bedside. He notes that pt does drink daily (unknown amount). He believes she will need a SNF at d/c. She has smoked for many years, quit for awhile and recently started smoking again. Exam Vital Signs (past 8 hours): - 04/08/24 03:45 Temperature 98.2 F Pulse Rate 99 H Respiratory Rate 18 Blood Pressure 134/74 Pulse Oximetry 93 Oxygen Flow Rate 2 Oxygen Delivery Method Nasal Cannula Oxygen Flow Rate 2 Narrative Exam Narrative: GEN: Elderly female, alert and oriented x 3, NAD HEENT:NC, Face symmetric, hoarse voice CHEST: Respiratory excursions symmetric, diffusely diminshed but CTAB CV: RRR w/irregularity during inspiration, no M/R/G ABD: Soft, NT/ND, BT present in all 4 quadrants, no organomegaly or masses EXTR: warm, well perfused, no C/C/E SKIN: warm and dry, no rash NEURO: Alert and oriented x 3, nonfocal Objective Labs 04/08/24 04:13 04/08/24 04:13 Labs: Laboratory Results - last 24 hr 04/07/24 04/08/24 18:01 04:13 WBC 5.9 7.1 RBC 3.66 L 2.98 L Hgb 12.6 10.5 L Hct 37.9 30.8 L MCV 103.6 H 103.4 H MCH 34.3 H 35.2 H MCHC 33.1 34.0 RDW 13.5 13.5 Plt Count 176 146 L Neut % (Auto) 55.7 71.2 Lymph % (Auto) 32.5 18.5 L [place] % (Auto) 9.1 9.7 Eos % (Auto) 1.9 L 0.1 L Baso % (Auto) 0.8 0.5 Neut # (Auto) 3300 5100 Lymph # (Auto) 1900 1300 [place] # (Auto) 500 700 Eos # (Auto) 100 0 Baso # (Auto) 0 0 Sodium 139 136 L Potassium 4.4 4.3 Chloride 105 105 Carbon Dioxide 26 25 BUN 23 H 23 H Creatinine 1.27 H 1.08 H Estimated GFR 41 L 50 L BUN/Creatinine Ratio 18.1 21.3 Glucose 102 125 H Calcium 8.7 8.2 L Total Bilirubin 0.5 AST 40 H ALT 26 Alkaline Phosphatase 73 Total Protein 7.0 Albumin 4.0 Globulin 3.0 Albumin/Globulin Ratio 1.3 [facility] Medical History (Updated 04/08/24 @ 07:49 by Jammie Ramos MD) Acute renal failure (05/09/18) Centrilobular emphysema (05/09/18) Anemia Lumbar spondylosis Hypertension (06/06/17) Vascular claudication (04/20/16) Hyperlipidemia (04/20/16) 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) Former smoker (04/20/16) Peripheral arterial disease (02/13/16) Osteoporosis (04/22/15) Diverticulosis of large intestine without hemorrhage (04/22/15) Other dietary vitamin B12 deficiency anemia (02/17/15) Surgical History S/P lumbar fusion (12/02/17) Status post bilateral cataract extraction Hx of sinus surgery Family History Mother CAD (coronary artery disease) Social History marital status: number of children: 4 household members: spouse lives independently: Yes caregiver/support person: Yes (Daughters) housing: house pets and animals: No education level: high school occupational status: other 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 sohail/sabianism: None travel history: recent leisure activities: sports and other Smoking Status: Current some day smoker Tobacco: How many years used: 40 Smokeless tobacco user: other quit status: quit date established second hand exposure: No alcohol intake: current substance use type: does not use Assessment & Plan Assessment & Plan narrative: 1. Comminuted intertrochanteric fx of the L hip w/varus angulation after GLF Patient will go to the operating today with Orthopedic surgery for definitive repair (planned nail/aiyana per Dr. Ramos). 2. Hypertension Patient is untreated at baseline. With what appears to be reasonable pain control, blood pressures have been in the 130s to 140 systolic. Given her advanced age, would tolerate blood pressures up to 160 systolic. She is at higher risk for orthostasis and falls with tighter blood pressure control. 3. PAD with claudication She is on aspirin and atorvastatin at baseline. These will be continued. 4. 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 Will monitor respiratory status postoperatively. Nicotine patch prn. 5. Macrocytic anemia Hemoglobin was 12.6 on admission. It is down to 10.5 today. Will check a B12 and folate level given her MCV. MCV elevation may be d/t alcohol use as well. 6. Hyponatremia Mild at 136. Will follow. 7. [place] Creatinine was mildly elevated at 1.27 on admission. It is improved at 1.08 this morning. Her baseline is normal. Will monitor response to IV fluids and hydration. Code status DNR Prophylaxis Chemical prophylaxis will be initiated postoperatively as long as she does not have significant oozing from her surgical site Disposition PT and OT assessments postoperatively. Time-Based Coding :: [TOTAL MINUTES] spent with patient and on the chart (including review of chart, obtaining history, exam, reviewing outside data, placing orders, documenting exam and treatment plan, and counseling patient) on [DATE]. Quality VTE Deep Vein Thrombosis/Pulmonary Embolism Present on Admission: No
--- NOTE | 2024-04-08 07:45 | PM.CN ---
History of Present Illness Consult details Date Patient Seen: 04/08/24 Time Patient Seen: 07:45 Chief complaint: Fall Reason for consult: Left hip fracture intertrochanteric Requesting provider: Gurdeep Amin Narrative: a 83-year-old female that had a ground level fall and was unable to ambulate. She was brought to the emergency department she was determined to have a displaced left intertrochanteric hip fracture. She was not on blood thinners. She does not have diabetes. She was recommended for hospitalization and surgical fixation of her displaced hip fracture and was admitted to the medicine service. Typically lives independently on [facility] with the and uses a walker for ambulation. Has family in the area that checks on her. Grandson at bedside this morning. No history of any significant heart or lung problems. Meds Home Medications and Allergies Home Medications Medication Instructions Recorded Confirmed Type multivitamin 1 tab PO DAILY 05/30/18 04/07/24 History acetaminophen 500 mg tablet 500 mg PO Q4H PRN pain #60 tabs 11/25/18 04/07/24 Rx (Tylenol Extra Strength) aspirin 81 mg tablet,delayed 81 mg PO DAILY 01/01/21 04/07/24 History release Disabled Parking #1 ea 05/29/21 04/07/24 Rx cholecalciferol (vitamin D3) 25 25 mcg PO DAILY 06/25/21 04/07/24 History mcg (1,000 unit) capsule lidocaine 4 % topical patch 1 patch topical DAILY PRN pain #15 01/02/23 04/07/24 Rx ea atorvastatin 40 mg tablet 40 mg PO DAILY #60 tabs 01/23/24 04/07/24 Rx ibandronate 150 mg tablet 150 mg PO QMONTH #14 tabs 03/30/24 04/07/24 Rx calcium 600 mg (as 1 cap PO DAILY 04/02/24 04/07/24 History carbonate)-vitamin D3 10 mcg (400 unit) capsule fluticasone furoate 100 1 inh inhalation DAILY #60 ea 04/02/24 04/07/24 Rx mcg-vilanterol 25 mcg/dose inhalation powder (Breo Ellipta) Allergies Allergy/AdvReac Type Severity Reaction Status Date / Time No Known Drug Allergies Allergy Verified 04/02/24 07:28 Review of Systems Review of Systems ROS: Yes All systems reviewed with the patient and are negative except as otherwise documented Exam Vital Signs (past 8 hours): - 04/08/24 03:45 Temperature 98.2 F Pulse Rate 99 H Respiratory Rate 18 Blood Pressure 134/74 Pulse Oximetry 93 Oxygen Flow Rate 2 Oxygen Delivery Method Nasal Cannula Oxygen Flow Rate 2 Narrative Exam Narrative: General examination alert and oriented. Grandson with her in the room. HEENT examination normocephalic atraumatic Respiratory examination lungs clear to auscultation Heart regular rate and rhythm regular rhythm strong radial pulse. Moving bilateral upper extremities without limitations. There some bruises but no tenderness to palpation. Full range of motion. Right lower extremity moving within normal limits no tenderness to palpation dorsiflexion plantar flexion 5/5 Left lower extremity shortened and externally rotated, hip pain. Thigh and calf compartments soft. Dorsiflexion plantar flexion 5/5. Sensation grossly intact. Brisk capillary refill palpable dorsalis pedis pulse gu--pure wick Objective Imaging X-ray AP pelvis and left lateral hip: My impression: AP pelvis and left lateral hip demonstrate displaced intertrochanteric hip fracture, left Labs 04/08/24 04:13 04/08/24 04:13 Labs: Laboratory Results - last 24 hr 04/07/24 04/08/24 18:01 04:13 WBC 5.9 7.1 RBC 3.66 L 2.98 L Hgb 12.6 10.5 L Hct 37.9 30.8 L MCV 103.6 H 103.4 H MCH 34.3 H 35.2 H MCHC 33.1 34.0 RDW 13.5 13.5 Plt Count 176 146 L Neut % (Auto) 55.7 71.2 Lymph % (Auto) 32.5 18.5 L [place] % (Auto) 9.1 9.7 Eos % (Auto) 1.9 L 0.1 L Baso % (Auto) 0.8 0.5 Neut # (Auto) 3300 5100 Lymph # (Auto) 1900 1300 [place] # (Auto) 500 700 Eos # (Auto) 100 0 Baso # (Auto) 0 0 Sodium 139 136 L Potassium 4.4 4.3 Chloride 105 105 Carbon Dioxide 26 25 BUN 23 H 23 H Creatinine 1.27 H 1.08 H Estimated GFR 41 L 50 L BUN/Creatinine Ratio 18.1 21.3 Glucose 102 125 H Calcium 8.7 8.2 L Total Bilirubin 0.5 AST 40 H ALT 26 Alkaline Phosphatase 73 Total Protein 7.0 Albumin 4.0 Globulin 3.0 Albumin/Globulin Ratio 1.3 [facility] Medical History (Updated 04/08/24 @ 07:49 by Jammie Ramos MD) Acute renal failure (05/09/18) Centrilobular emphysema (05/09/18) Anemia Lumbar spondylosis Hypertension (06/06/17) Vascular claudication (04/20/16) Hyperlipidemia (04/20/16) 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) Former smoker (04/20/16) Peripheral arterial disease (02/13/16) Osteoporosis (04/22/15) Diverticulosis of large intestine without hemorrhage (04/22/15) Other dietary vitamin B12 deficiency anemia (02/17/15) Surgical History S/P lumbar fusion (12/02/17) Status post bilateral cataract extraction Hx of sinus surgery Family History Mother CAD (coronary artery disease) Social History marital status: number of children: 4 household members: spouse lives independently: Yes caregiver/support person: Yes (Daughters) housing: house pets and animals: No education level: high school occupational status: other 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: None travel history: recent leisure activities: sports and other Tobacco & Substance Use Smoking Status: Current some day smoker Tobacco: How many years used: 40 Smokeless tobacco user: other quit status: quit date established second hand exposure: No alcohol intake: current substance use type: does not use Assessment & Plan Assessment and plan (1) Closed intertrochanteric fracture of left hip: Qualifiers: Encounter type: initial encounter Fracture alignment: displaced Qualified Code(s): S72.142A - Displaced intertrochanteric fracture of left femur, initial encounter for closed fracture Status: Acute (2) Osteoporotic fracture of left hip: Qualifiers: Encounter type: initial encounter Qualified Code(s): M80.052A - Age-related osteoporosis with current pathological fracture, left femur, initial encounter for fracture Status: Acute Plan Patient was a displaced osteoporotic hip fracture. This is indicated for surgical fixation to allow immediate weight-bearing and mobilization and help reduce the morbidity of prolonged bedrest. Surgical risks include infection persistent pain hardware loosening or complication nerve or vascular injury, blood clot, stroke paralysis myocardial infarction. Nonoperative treatment would be bed rest which means the patient would not walk again and have risks of bedsores, pneumonia, blood clot Overall the benefits of surgery outweigh the risks for this patient to help restore mobility and control pain. The patient will be scheduled for fixation of her left intertrochanteric hip fracture with intramedullary aiyana. Surgical decision-making. The patient was indicated for hospital admission. We will work with physical therapy after surgery will likely require [facility] discharge. Assessment & Plan narrative: High-level medical decision-making. Decision for admission and major orthopedic surgery. Inpatient admission indicated. Time-Based Coding :: [TOTAL MINUTES] spent with patient and on the chart (including review of chart, obtaining history, exam, reviewing outside data, placing orders, documenting exam and treatment plan, and counseling patient) on [DATE].
--- NOTE | 2024-04-08 08:15 | PM.OP.1 ---
Operative Date/Time/Diagnoses Date of procedure: 04/08/24 Time of procedure: 09:00 Pre-op diagnosis: Left intertrochanteric hip fracture Post-op diagnosis: same Procedure & Clinicians Procedure: Cephalomedullary nail intertrochanteric hip fracture, left CPT code 68521 Same procedure as scheduled: Yes Indications: Patient is a 83-year-old female that a ground level fall last evening she sustained a displaced left intertrochanteric hip fracture. She was previously ambulatory with a walker living independently. She was indicated for fixation of her intertrochanteric hip fracture with a cephalomedullary aiyana. We discussed fixation of hip fractures is overwhelmingly recommended for previously ambulatory patients. Rationale for surgery is to control pain, allow early mobility and mobilization and reduce the morbidity and mortality associated with prolonged bed rest. Overall the benefits of the procedure are felt to outweigh the risks. The risks and benefits of the procedure have been discussed with the patient and given the opportunity to ask questions. The risks of surgery include but are not limited to infection, malunion, nonunion, persistence of pain, damage to nerves and blood vessels, posttraumatic arthritis, DVT, PE, cardiopulmonary complications and . The patient expressed a thorough understanding of the risks and benefits of surgery and has elected to proceed. Consent was signed. Surgeon: Jammie Ramos Click Yes if Unassisted: Yes Anesthesia Type: General and Local Operative Notes Findings: Displaced left intertrochanteric hip fracture Closure Type: primary Specimen(s): none sent Prosthetic devices, grafts, tissues, transplants, or devices: Loza and Nephew short InterTAN nail 11.5 mm by 18 cm Interlocking lag screw and compression screw 90 mm/85 mm Distal interlock screw 5 mm x 32.5 mm Estimated Blood Loss (mL): 30 Blood products transfused: none Tourniquet time (min): 0 Procedure in detail: Procedure cephalomedullary nail intertrochanteric hip fracture the CPT code 87068 Side: Left Implant Loza and Nephew 11.5 x 18 cm cephalomedullary nail intertan Procedure: The patient was seen and the site of surgery was marked in the preoperative area. This was the left hip. Patient was brought to the operating room and placed on the operative table and general anesthesia was administered. The patient was positioned on the fracture table in standard fashion with a well-padded boots and a padded peroneal post. An SCD was on the contralateral leg. A formal time-out was called to confirm the patient's side and site of surgery administration of preoperative antibiotics. 2 g of Ancef were administered for the preoperative antibiotic and 1 g of TXA was administered. All were in agreement. The operative leg was then gently manipulated under fluoroscopic guidance to obtain a closed reduction in near anatomic alignment. At this point the operative extremity was prepped and draped in the standard sterile manner. The starting point was marked out using fluoroscopic guidance and marked on the skin. A guidewire was placed percutaneously and the starting point was obtained. Incision was made over the guidewire. An opening drill was inserted to the level of the lesser trochanter. There was a wide canal and profound osteoporosis. The opening Reamer and guidewire were then removed. An 18 cm cephalomedullary nail was selected. The 11.5 x 18 cm nail was then slid into the canal. The nail was advanced to the proper depth and rotation. The guide for the cephalomedullary screw was then inserted into the external handle. An incision was made and the guide was placed down to the bone. A guidewire was placed to the proper depth into the femoral head and this was confirmed on AP and lateral imaging. The tip apex distance was evaluated and appropriate. This was measured. Next the outer cortex was drilled for the interlocking screw and the anti rotation bar was placed. The cephalomedullary screw length was then measured off the drill again. A 90 mm lag screw was selected and the corresponding interlocking compression screw. A guidewire was then over drilled and the lag screw placed. The anti rotation bar was removed and then the locking compression screws were placed and confirmed on biplanar fluoroscopy. The integrated compression screw was tightened. Attention was turned to the distal interlock. This was placed with the guide in the standard technique. AP and lateral images were captured in the or confirming alignment hardware placement. Wounds were irrigated and closed in layers with 0 Vicryl in the deep fascia. 2- 0 in the subcutaneous tissue and therese in the skin. 0.25% Marcaine with epinephrine was injected into the incision sites for local anesthetic. Sterile dressings were applied. There no immediate complications. Surgical counts were correct. The patient tolerated the procedure well was taken to recovery room for formal radiographs. Postoperative plan. Weightbear as tolerated to the surgical extremity. Work with physical therapy and occupational therapy. Discharge by primary team. Likely penitentiary. Monitor hemoglobin and hematocrit postoperatively may require transfusion if needed. Encourage incentive spirometry. SCDs and Lovenox for DVT prophylaxis. Recommend Lovenox 4 weeks for hip fracture. Follow-up [facility] in 2 weeks for wound check and repeat x-rays. Keep dressing clean dry and intact. May change of saturated. Complications: none Post-operative Condition: stable Disposition: PACU Plan for aftercare: Weightbear as tolerated left lower extremity. Lovenox subQ daily x4 weeks for DVT prophylaxis. If ambulating well can be switched to aspirin 81 mg b.i.d.
[2024-04-08] MEDS: ALBUTEROL 2.5 MG/3 ML NEB (ADULT) INH ×4 (08:34→19:17)
[2024-04-08] MEDS: LACTATED RINGERS 1,000 ML 42 ML IV (08:36)
[2024-04-08] MEDS: CEFAZOLIN 2 GM/100 ML PREMIX 100 ML IV ×2 (09:06→18:20)
--- NOTE | 2024-04-08 09:16 | PC.NURSE ---
Addendum entered by Jeanne Staley R.N. 04/08/24 18:52: Patient returned from Surgery this a.m. at approximately 1130 a.m. She is A&OX3, slightly forgetful of exact date. CIWA zero. Aquacel to L hip C/D/I. PT at bedside evaluating patient, she states she would prefer to get up with therapy tomorrow. Family at bedside plan to arrive tomorrow for CM and PT eval. She reports pain is tolerable at 3/10 when I'n not moving it shoots up to 6/10 if I move. She is able to bend and flex ankles but denies being able to lift LLE. Dela Cruz in place. Encouraged IS use, continuous pulse ox, q 2 turning. Original Note: Report given to Preop RN, and patient's earings removed. She will take dentures off in preo-op. She denies wanting any pain medications this a.m. and grandson at bed discussing plan for surgery. Patient is A&OX4, slightly TANACROSS. VSS, afebrile. She is taken by bed to preop area at approximately 0830 this a.m.
[2024-04-08 09:25] LABS: Folate 3.7 ng/mL (2.76-20.0); Vitamin B12 943 pg/mL (239-931)
[2024-04-08] MEDS: TRANEXAMIC ACID 1,000 MG in SODIUM CHLORIDE 0.9% 100 ML 200 MG IV (09:28)
--- NOTE | 2024-04-08 09:30 | SUR.OPER ---
Head on pillow. Supine on padded fracture table. Both legs secured in padded traction boots and positioned per surgeon, padded post at patient's groin, pressure points checked and padded. Arms across chest, secured with sheet.
[2024-04-08] MEDS: BUPIVACAINE 0.25% W/ EPI 30 ML VIAL INJ (09:38)
[2024-04-08] MEDS: ACETAMINOPHEN 325 MG TABLET 650 MG PO ×2 (10:25→18:17)
[2024-04-08] MEDS: ONDANSETRON 4 MG/2 ML INJ IV (10:26)
[2024-04-08] MEDS: MULTIVITAMIN 1 TABLET 1 TAB PO (11:28)
[2024-04-08] MEDS: CHOLECALCIFEROL (VITAMIN D3) 1,000 UNIT TABLET 1000 UNIT PO (11:28)
[2024-04-08] MEDS: ATORVASTATIN 20 MG TABLET 40 MG PO (11:29)
--- NOTE | 2024-04-08 11:35 | PT-IP ANOTE ---
PT consult received and pt had surgery for left comminuted hip fracture this morning. PT checks in on pt and gets PLOF. Pt is dyspneic at rest in bed and she requests PT consult next date. She has no c/o of left hip pain at rest at this time.
[2024-04-08] MEDS: OXYCODONE IR 5 MG TABLET PO ×2 (11:43→15:13)
[2024-04-08] MEDS: LACTATED RINGERS 1,000 ML 100 ML IV ×2 (11:44→23:20)
[2024-04-08] MEDS: CALCIUM CARBONATE 500 MG TAB 1000 MG PO (11:49)
[2024-04-08] MEDS: IBUPROFEN 400 MG TABLET PO ×4 (11:49→23:19)
--- NOTE | 2024-04-08 13:26 | CM.DANOTE ---
Patient is an 83 yo female who was admitted INPT Status on 04/07/24 for GLF/Hip Fx. Pt has MCR and FIRST CHOICE for insurance and her PCP is Ghazal Jones at [facility]. EMR was reviewed. Per MD, pt with hx of COPD and some ETOH use and GLF with L hip fx and per Ortho plan is surgery today. Per Ortho, pt tolerated procedure well and to work with PT for likely need of SNF. PT eval ordered for tomorrow morning as pt just back to floor from OR and not up to PT yet today. SW met bedside with pt, spouse, and adult Dtr Tierra ([phone]) and explained role and they confirm that pt and spouse live at home on [address] and both are mostly independent with ADLs at baseline and pt uses a FWW for ambulation. Both still drive some but have local supportive friends and neighbors and when pt had GLF they had about 8 local support people show up to their house along with EMS. They confirm that a few years ago pt had Ortho surgery and had to go to SNF from [facility] and pt went to [facility] in [place] as Dtr Tierra and Rayna and other family live nearby and could visit and be a support. No local family living on [address]. Dtr Rayna is POA for medical and Dtr Tierra is POA for Financial but Rayna is currently vacationing in [place] and available by phone but Dtr Tierra is currently staying with her dad/pt's spouse at home on [address] to help with coordinating discharge needs. Family anticipates SNF at d/ and request SW to make referrals to both 1)[facility] 2) [facility]. SW called both and left vm and faxed initial referral to both requesting review. SW discussed since SNF out of [facility] then would need PT to help determine safe transport via family POV vs PP Cabulance vs BLS transport pending pt's mobility and pain. They acknowledged understanding. Amira Tierra will be bedside in the morning around 1015 and requesting to be present when PT works with the pt. SW will attempt to update PT in the AM. PASRR done in anticipation of SNF. Plan; SW to follow closely in AM for PT eval and then SNF reviews to confirm if they can accept the pt at d/c (Medicare eligible for SNF starting 04/10) and then mode of safe transport. KELL Shaikh Discharge Planning/Care Management CM Discharge Assessment Start: 04/08/24 13:24 Freq: Status: Active Protocol: Document 04/08/24 13:24 BF (Rec: 04/08/24 13:26 BF [id number]) Discharge Planning Assessment Assigned Nursery Technician KELL Oliver DPOA/Assigned Designee Name Dtr Rayna Kraus medical Contact Information [phone] Advance Directives? No Advance Directives on File Yes History Provided By Patient,Family Member, Significant Other,Medical Record Has Patient been admitted in last 30 No days? Prior Living Arrangements House Household Members spouse Type of transporation used prior to Drives own vehicle admit Independent with ADL's Yes Is patient alert and oriented? Yes Needs Assistance With Home Chores / Shopping Caregiver for Another No DME Already Rented / Owned FWW / Walker Patient/Family Preference Jail Facility Comment Pending PT eval in the AM Barriers to Discharge No Discharge Plan Jail Facility Transportation Arrangement If accepted at [facility], discussed need to determine POV vs cabulance PP Referrals Initiated Jail Additional Comment Waiting for PT/OT eval and recommendations Mon AM If patient plan is SNF: Has PASSR been Yes completed? Medicare Choice List Provided Yes Medicare choice list reviewed on patient,family electronic tablet with SNF/HH Preference [facility] or [facility] Has Agency SNF been contacted Yes Whiteboard Updated in Patient Room with Yes name and ext. # of Nursery Technician Review Status In Process Please Provide Date Initial DC 04/08/24 Assessment Was Performed Next Review Type Continued Stay Review
--- NOTE | 2024-04-08 17:43 | PC.NURSE ---
Patient is refusing padded hand rails/seizure pads
[2024-04-08] MEDS: BUDESONIDE 0.5 MG/2 ML NEB INH (19:17)
[2024-04-09] VITALS (10 sets, daily range): BP systolic 115–154; BP diastolic 44–90; PULSE 67–107; RESP 15–24; TEMP 36.4–36.9; O2SAT 92–97
[2024-04-09] MEDS: CEFAZOLIN 2 GM/100 ML PREMIX 100 ML IV (01:27)
[2024-04-09] MEDS: IBUPROFEN 400 MG TABLET PO ×4 (04:26→20:13)
[2024-04-09 05:31] LABS: Add Manual Diff / Slide Review NO; Basophils Absolute Auto 0 /uL (0-100); Basophils Percent Auto 0.1 % (0-2); Eosinophils Absolute Auto 0 /uL (0-450); Hematocrit 22.7 % (36-46); Hemoglobin 7.7 g/dL (12.0-16.0); Lymphocytes Absolute Auto 500 /uL (1100-4500); Lymphocytes Percent Auto 6.4 % (25-40); Mean Corpuscular HGB Conc 34.1 % (30-36); Mean Corpuscular Hemoglobin 35.4 PG (26-34); Mean Corpuscular Volume 103.6 fL (80-100); Monocytes Absolute Auto 700 /uL (0-900); Monocytes Percent Auto 8.2 % (3-14); Neutrophils Absolute Auto 7200 /uL (1500-7000); Neutrophils Percent Auto 85.3 % (50-75); Platelet Count 113 X10^3/uL (150-400); Red Blood Cell Count 2.19 X10^6/uL (4.0-5.2); Red Cell Distribution Width 13.5 % (11.6-14.8); White Blood Cell Count 8.4 X10^3/uL (4.5-11.0)
[2024-04-09 05:45] LABS: BUN Creatinine Ratio 18.6 (6-22); Blood Urea Nitrogen 19 mg/dL (7-17); Calcium 8.5 mg/dL (8.4-10.2); Carbon Dioxide 23 mmol/L (22-32); Chloride 102 mmol/L (98-107); Estimated Glomerular Filt Rate 54 mL/min (>60); Glucose 137 mg/dL (80-110); HEMOLYSIS < 15 (0-50); Sodium 131 mmol/L (137-145)
--- NOTE | 2024-04-09 06:13 | PC.NURSE ---
pt is POD#1 from surgery to left hip s/p ground level fall w/ fx; dressing to left hip CDI; CIWA-0; pt refuses siderail pads on bed; she only c/o discomfort with movement; controlled w/ ibuprofen; pt's o2 sat decreased while sleeping; placed on o2/3l/nc
[2024-04-09] MEDS: OXYCODONE IR 5 MG TABLET PO (07:26)
--- NOTE | 2024-04-09 08:00 | P.PN_ITS ---
Subjective Subjective Interval history: Summary: 83 yo female w/hx of HTN, peripheral artery disease with claudication, B12 deficiency, chronic diverticulosis, aortic bifurcation syndrome, centrilobular emphysema seen on imaging, osteoporosis, lumbar spondylosis status post lumbar fusion, remote tobacco use and HLD admitted w/comminuted intertrochanteric fx of the L hip w/varus angulation after GLF. Patient reportedly tripped and fell. She was not having syncopal or presyncopal symptoms. Plan is for patient to go to the operating room for repair today. S/P ORIF 04/08. S: She was doing well today. She has good pain control, and is very motivated to start moving around with physical therapy. She denies any dyspnea. Exam Vital Signs (past 8 hours): - 04/09/24 04:23 04/09/24 07:28 Temperature 97.8 F 98.2 F Pulse Rate 67 89 Respiratory Rate 19 16 Blood Pressure 119/44 L 154/90 H Pulse Oximetry 95 97 Oxygen Flow Rate 3 3 Fraction of Inspired Oxygen 28 SaO2/FiO2 Ratio 328 Oxygen Delivery Method Nasal Cannula Oxygen Flow Rate 3 Narrative Exam Narrative: NAD, alert and oriented. Fluent speech. Lungs are clear, normal rate and effort. Heart is regular, no murmur gallop or rub. Abdomen is soft, non distended. Extremities are free of edema. Objective Labs 04/09/24 05:06 04/09/24 05:06 Labs: Laboratory Results - last 24 hr 04/08/24 04/09/24 04:13 05:06 WBC 8.4 RBC 2.19 L Hgb 7.7 L Hct 22.7 L MCV 103.6 H MCH 35.4 H MCHC 34.1 RDW 13.5 Plt Count 113 L Neut % (Auto) 85.3 H Lymph % (Auto) 6.4 L Mccracken % (Auto) 8.2 Eos % (Auto) 0.0 L Baso % (Auto) 0.1 Neut # (Auto) 7200 H Lymph # (Auto) 500 L Mccracken # (Auto) 700 Eos # (Auto) 0 Baso # (Auto) 0 Sodium 131 L Potassium 4.0 Chloride 102 Carbon Dioxide 23 BUN 19 H Creatinine 1.02 Estimated GFR 54 L BUN/Creatinine Ratio 18.6 Glucose 137 H Calcium 8.5 Vitamin B12 943 H Folate 3.7 PFSH Medical History Acute renal failure (05/09/18) Centrilobular emphysema (05/09/18) Anemia Lumbar spondylosis Hypertension (06/06/17) Vascular claudication (04/20/16) Hyperlipidemia (04/20/16) 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) Former smoker (04/20/16) Peripheral arterial disease (02/13/16) Osteoporosis (04/22/15) Diverticulosis of large intestine without hemorrhage (04/22/15) Other dietary vitamin B12 deficiency anemia (02/17/15) Surgical History S/P lumbar fusion (12/02/17) Status post bilateral cataract extraction Hx of sinus surgery Family History Mother CAD (coronary artery disease) Social History marital status: number of children: 4 household members: spouse lives independently: Yes caregiver/support person: Yes (Daughters) housing: house pets and animals: No education level: high school occupational status: other 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 sohail/congregation: None travel history: recent leisure activities: sports and other Smoking Status: Current some day smoker Tobacco: How many years used: 40 Smokeless tobacco user: other quit status: quit date established second hand exposure: No alcohol intake: current substance use type: does not use Assessment & Plan Assessment & Plan narrative: 1. Comminuted intertrochanteric fx of the L hip w/varus angulation after GLF, S/P ORIF. Present on admission and active. Patient will go to the operating today with Orthopedic surgery for definitive repair (planned nail/aiyana per Dr. Ramos). 2. Hypertension, active. Patient is untreated at baseline. With what appears to be reasonable pain control, blood pressures have been in the 130s to 140 systolic. Given her advanced age, would tolerate blood pressures up to 160 systolic. She is at higher risk for orthostasis and falls with tighter blood pressure control. 3. PAD with claudication, stable. She is on aspirin and atorvastatin at baseline. These will be continued. 4. 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 She has been placed on budesonide nebulizers as well as albuterol nebulizers as needed. Will monitor respiratory status postoperatively. Nicotine patch prn. 5. Macrocytic anemia, stable. Hemoglobin was 12.6 on admission. It is down to 10.5 today. Will check a B12 and folate level given her MCV. MCV elevation may be d/t alcohol use as well. 6. Hyponatremia, active. Mild at 136. Will follow. 7. KAITLYNN, active. Creatinine was mildly elevated at 1.27 on admission. It is improved at 1.08 this morning. Her baseline is normal. Will monitor response to IV fluids and hydration. PLAN: -PT/OT assessments. -[facility] discharge. -gentle IV fluids and monitor sodium and renal function. HOLLI: 04/10. Code status DNR Prophylaxis Chemical prophylaxis will be initiated postoperatively as long as she does not have significant oozing from her surgical site. ASA BID. Time-Based Coding :: [TOTAL MINUTES] spent with patient and on the chart (including review of chart, obtaining history, exam, reviewing outside data, placing orders, documenting exam and treatment plan, and counseling patient) on [DATE]. Quality VTE Deep Vein Thrombosis/Pulmonary Embolism Present on Admission: No
[2024-04-09] MEDS: ALBUTEROL 2.5 MG/3 ML NEB (ADULT) INH ×3 (08:39→19:50)
[2024-04-09] MEDS: BUDESONIDE 0.5 MG/2 ML NEB INH ×2 (08:39→19:50)
[2024-04-09] MEDS: CALCIUM CARBONATE 500 MG TAB 1000 MG PO (09:03)
[2024-04-09] MEDS: ATORVASTATIN 20 MG TABLET 40 MG PO (09:04)
[2024-04-09] MEDS: THIAMINE 100 MG TABLET PO (09:05)
[2024-04-09] MEDS: FOLIC ACID 1 MG TABLET PO (09:05)
[2024-04-09] MEDS: MULTIVITAMIN 1 TABLET 1 TAB PO (09:05)
[2024-04-09] MEDS: DOCUSATE 100 MG CAPSULE PO ×2 (09:05→20:14)
[2024-04-09] MEDS: CHOLECALCIFEROL (VITAMIN D3) 1,000 UNIT TABLET 1000 UNIT PO (09:06)
--- NOTE | 2024-04-09 10:51 | OT.IPNOTE ---
Chart reviewed and discussed with P.T. after PBartolome. saw patient. Pt with limited abilities d/t orthostatic and symptomatic with mobility. Will hold today and continue to follow.
[2024-04-09] MEDS: ONDANSETRON 4 MG/2 ML INJ IV ×2 (10:53→15:29)
--- NOTE | 2024-04-09 11:21 | PT.IIE ---
Current Diagnoses Age-related osteoporosis with current pathological fracture, left femur, initial encounter for fracture (04/07/24) Fracture of unspecified part of neck of left femur, initial encounter for closed fracture (04/07/24) Displaced intertrochanteric fracture of left femur, initial encounter for closed fracture (04/07/24) Surgery Performed Operation Date: 04/08/24 09:00 Actual Procedures p fixation left hip fracture, nail/aiyana(Left) - Jammie Ramos MD Surgical History (Last Reviewed 04/09/24 @ 08:01 by Jose Elias Betts MD) Hx of sinus surgery S/P lumbar fusion (12/02/17) Status post bilateral cataract extraction Medical History (Last Reviewed 04/09/24 @ 08:01 by Jose Elias Betts MD) Acute renal failure (05/09/18) Anemia 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) Centrilobular emphysema (05/09/18) Diverticulosis of large intestine without hemorrhage (04/22/15) Former smoker (04/20/16) Hyperlipidemia (04/20/16) Hypertension (06/06/17) Lumbar spondylosis Osteoporosis (04/22/15) Other dietary vitamin B12 deficiency anemia (02/17/15) Peripheral arterial disease (02/13/16) Vascular claudication (04/20/16) Physical Therapy Inpatient Evaluation/Re-Eval M1 PT/OT-IP Prior Functional Status Start: 04/08/24 08:54 Freq: NEEDED Status: Active Protocol: Document 04/09/24 10:25 MB (Rec: 04/09/24 11:20 MB [id number]) Medical Review Prior Functional Status Medical History Reviewed Yes Communication Unsure baseline diet Mobility and Gait Mod I with rollator in the house, does not drive, reports I with ADLs Prior Functional Level (Other details) Lives with , pt denies O2 at home despite pulmonary history Social History Household Members spouse Living Arrangements House Home Environment Standard Height Toilet,Tub/ Shower Home Equipment Four Wheel Walker,Straight Cane,Hand Held Shower,Grab Bars In Shower Employment Status Retired M2 PT-IP Current Condition Start: 04/08/24 08:54 Freq: NEEDED Status: Active Protocol: Document 04/09/24 10:25 MB (Rec: 04/09/24 11:20 MB [id number]) Physical Therapy Current Condition Current Condition Evaluation Date 04/09/24 Treatment Diagnosis Fall, left intratrochanteric hip fracture s/p nailing M3 PT-IP Subjective Start: 04/08/24 08:54 Freq: NEEDED Status: Active Protocol: Document 04/09/24 10:25 MB (Rec: 04/09/24 11:20 MB [id number]) Subjective Physical Therapy Visit Type Type Initial Evaluation Visit Start Time 10:25 Visit Stop Time 11:03 Notes Hgb dropped from 10.5 to 7.7 since last date Number of TERRITORY SALES PROFESSIONAL Visits 0 Physical Therapy Visit Comments Patient Comments Pt states she is ready to mobilize today Therapy Pain Assessment Pain When Pain Assessed At Rest Pain Present Pain Present Denied Pain M4 PT-IP Mobility and Gait Start: 04/08/24 08:54 Freq: NEEDED Status: Active Protocol: Document 04/09/24 10:25 MB (Rec: 04/09/24 11:20 MB [id number]) PT-Bed Mobility Assessment Supine to Sit Supine to Sit Minimal Assistance,1 Person Assistance Scooting Scooting to Edge of Bed Minimal Assistance PT-Transfer Assessment Sit to and From Stand Sit to and from Stand Minimal Assistance Equipment Transfer Assistive Device Gait Belt,Front Wheeled Walker Orthotic/Prosthetic Devices or Brace: No Transfers Transfer Destination Chair Transfer Technique Stepping Transfer Ability Level of Assist Minimal Assistance Comments Mobility Comments Orthostatic assessment with BP and HR in LUE: supine 151/62, 93; sitting 127/42, 114; standing 134/45, 95. Pt with BANKS and O2 sats drop to 87-88% on RA in hook lying and with moving to EOB and redonned 2L O2 and O2 sats con't to drop with mobility and recover to the low 90s at rest in the chair with O2 donned. Gait Assessment Gait Gait Assistance Required: Minimum Assistance Distance (Feet) 1 Able to Maintain Weight Bearing Status Yes During Gait Assistive Devices Assistive Device Gait Belt,Front Wheeled Walker Orthotic/Prosthetic Devices or Brace: No Gait Deviations General Gait Pattern Antalgic,Decreased Stride Length,Flexed Trunk,Narrow Based Gait,Step-to Gait Factors Limiting Gait Function Factors Limiting Gait Function Decreased Activity Tolerance, Decreased Strength,Difficulty Following Directions, Incoordination,Limited Range of Motion,Pain,Poor Balance, Poor Safety Awareness, Respiratory Distress Comments Gait Comments Pt somewhat truncal ataxia with movement PT-Balance Assessment Sitting Balance and Reactions Static Sitting Balance Ability Good Dynamic Sitting Balance Ability Fair Standing Balance and Reactions Static Standing Balance Ability Fair Dynamic Standing Balance Ability Poor Device Used RW M5 PT-IP Objective Assessments Start: 04/08/24 08:54 Freq: NEEDED Status: Active Protocol: Document 04/09/24 10:25 MB (Rec: 04/09/24 11:20 MB [id number]) Orientation Orientation/Cognition Level of Alertness Alert Safety Awareness Decreased Safety Awareness Memory Description No Deficits Noted Gross Range of Motion Upper Extremity ROM Impairments Defer to OT Lower Extremity ROM Assessment Left Impaired Impairments Left knee extension lacks about 10 deg in sitting and pt limits left hip range today, left ankle DF limited today and with some inversion with movement Strength Lower Extremity Strength Assessment Left Impaired Comments Strength Comments R ankle and knee at least 4/5 Coordination Assessment Gross Coordination Gross Coordination Impaired Assessment Coordination Comments Slow mobility to EOB Sensation Assessment Comments Sensation Comments Denies paresthesias M6 PT-IP Treatment Start: 04/08/24 08:54 Freq: NEEDED Status: Active Protocol: Document 04/09/24 10:25 MB (Rec: 04/09/24 11:20 MB [id number]) Physical Therapy Treatment Exercises Exercises Ankle Pumps Education Education Provided Weight Bearing Status,Safety Other Treatments Other Treatment Performed LAQ sitting EOB M7 PT-IP Assessment and Plan Start: 04/08/24 08:54 Freq: NEEDED Status: Active Protocol: Document 04/09/24 10:25 MB (Rec: 04/09/24 11:20 MB [id number]) PT Summary Assessment and Plan Potential Rehabilitation Potential Fair Status of Condition at Evaluation Unstable Summary Impairments Pain,ROM,Strength,Balance, Coordination,Bed Mobility, Transfers,Gait,Activity Tolerance Progress Towards Goals Slow Progress due to Medical Issues,Slow Progress due to Activity Tolerance Assessment Summary Pt is an 83 y/o female presenting with decreased mobility s/p fall and left hip fracture. Family reports pt has a history of falling at home. Pt Hgb dropped from 10.5 to 7.7 overnight and physician, nsg and SW all hoping that PT could work with pt today for placement recommendations and so PT initiates evaluation. PT checks orthostatics and pt is orthostatic and she has increased BANKS with mobility and O2 sats decreasing on 2L O2. Pt also mildly light- headed with mobility. Pt requires CGA to min A for mobility and got pt up chair with BUS DRIVER assistance and PT let nsg know PT findings. Medical presentation is currently limiting mobility. Goals Bed Mobility Goal Independent Transfer Goal Independent,Four Wheeled Walker Gait Goal Independent,Four Wheel Walker Gait Distance 1 Days to Meet Goals 5 Frequency of Treatment Other frequency x1-2, 1-2x/day Treatment Plan Physical Therapy Treatment Plan Bed Mobility Training,Transfer Training,Gait Training, Therapeutic Exercise,Balance Retraining,Post Op Education, Discharge Planning,Hot or Cold Pack,Neuromuscular Re-ed, Coordination Retraining,Manual Therapy Weight Bearing Status Weight Bearing Status Weight Bear as Tolerated Recommendations To Nursing Amount of Assist Needed 2 Person Assist Discharge Recommendations PT Discharge Recommendations SNF Rehab Transportation Needs at Discharge Wheelchair/Cabulance
--- NOTE | 2024-04-09 12:59 | PM.PNPO.1 ---
Subjective Subjective Date Patient Seen: 04/09/24 Time Patient Seen: 12:59 Interval history: Taniya is sitting up in a chair, just finished lunch. She worked with PT today and just got from bed to chair, thought it went well. Plans to go to SNF for further rehab. Good pain control. Exam Vital Signs (past 8 hours): - 04/09/24 07:28 04/09/24 08:00 04/09/24 08:40 Temperature 98.2 F 97.6 F Pulse Rate 89 78 102 H Respiratory Rate 16 15 16 Blood Pressure 154/90 H 115/69 Pulse Oximetry 97 97 93 Oxygen Delivery Method Nasal Cannula Oxygen Flow Rate 3 2 04/09/24 12:00 Temperature 98.1 F Pulse Rate 95 H Respiratory Rate 21 Blood Pressure 142/64 H Pulse Oximetry 97 Oxygen Delivery Method Oxygen Flow Rate Fraction of Inspired Oxygen 28 SaO2/FiO2 Ratio 328 Oxygen Delivery Method Nasal Cannula Oxygen Flow Rate 2 Narrative Exam Narrative: 5/5 strength in hip flexors, quadriceps, hamstrings, PF, DF, EHL on left. Sensation to light touch is intact throughout LLE. Calf soft and compressible. Aquacel dressing w/ scant bloody drainage, otherwise intact. Objective Labs 04/09/24 05:06 04/09/24 05:06 Labs: Laboratory Results - last 24 hr 04/09/24 05:06 WBC 8.4 RBC 2.19 L Hgb 7.7 L Hct 22.7 L MCV 103.6 H MCH 35.4 H MCHC 34.1 RDW 13.5 Plt Count 113 L Neut % (Auto) 85.3 H Lymph % (Auto) 6.4 L [place] % (Auto) 8.2 Eos % (Auto) 0.0 L Baso % (Auto) 0.1 Neut # (Auto) 7200 H Lymph # (Auto) 500 L [place] # (Auto) 700 Eos # (Auto) 0 Baso # (Auto) 0 Sodium 131 L Potassium 4.0 Chloride 102 Carbon Dioxide 23 BUN 19 H Creatinine 1.02 Estimated GFR 54 L BUN/Creatinine Ratio 18.6 Glucose 137 H Calcium 8.5 PFSH Medical History Acute renal failure (05/09/18) Centrilobular emphysema (05/09/18) Anemia Lumbar spondylosis Hypertension (06/06/17) Vascular claudication (04/20/16) Hyperlipidemia (04/20/16) 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) Former smoker (04/20/16) Peripheral arterial disease (02/13/16) Osteoporosis (04/22/15) Diverticulosis of large intestine without hemorrhage (04/22/15) Other dietary vitamin B12 deficiency anemia (02/17/15) Surgical History S/P lumbar fusion (12/02/17) Status post bilateral cataract extraction Hx of sinus surgery Family History Mother CAD (coronary artery disease) Social History marital status: number of children: 4 household members: spouse lives independently: Yes caregiver/support person: Yes (Daughters) housing: house pets and animals: No education level: high school occupational status: other 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 2) Currently on enoxaparin for VTE prophylaxis. May change to ASA 81mg BID if ambulating well. Continue VTE prophylaxis for 4 weeks after surgery. 3) Pain control and disposition per hospitalist service. 4) Follow up w/ [facility] in 2 weeks for wound check. Postoperative Procedures: Procedures Operation Date: 04/08/24 09:00 Actual Procedure Side Surgeon p fixation left hip fracture, nail/aiyana Left Jammie Ramos MD Postoperative day: 1 Quality VTE Deep Vein Thrombosis/Pulmonary Embolism Present on Admission: No
--- NOTE | 2024-04-09 14:17 | DIET.CONS ---
Dietary Consultation Note Admission Date: 04/07/2024 20:56 Assessment: 83 y F admitted after GLF and s/p hip surgery. Dietitian consulted for low BMI. Met with pt at bedside who reports grazing on food throughout the day. Reports appetite is normal for her, has never been a big eater, but has noted weight decline in recent years. Her kids are pushing her to eat more to gain weight. Provides her with snacks, has snack basket at home by chair and nightstand. drinks Ensure. Likes vanilla or strawberry only. Pt usually does cooking. In hospital room, patient has some snacks brought by kids (ex-nature Fast[employer]) and reports kids brought her mac and cheese one day too. Ht: 160.02 cm Wt: 48 kg BMI: 18.7 UBW: 42.638 kg on 04/02/24, weight 50-52 kg [id number]. Pt went from 52.163 kg on 07/25/20 to 44.027 kg on 01/01/21 and has been unable to gain weight back to 50 kg again since. Last BM: 04/06/24 (04/08/24 08:44) MNA: 11 Vaibhav Score: 16 Diet: 04/08/24 Lunch General (Regular) Diet Diet Modifications: Food Texture: Level 7 - Regular Liquid Consistency: Level 0 - Thin Nutrition Percent Meal Consumed 25% 04/08/24 18:00 Labs: RBC 2.19 X10^6/uL (4.0-5.2) L 04/09/24 05:06 Hgb 7.7 g/dL (12.0-16.0) L 04/09/24 05:06 Hct 22.7 % (36-46) L 04/09/24 05:06 Creatinine 1.02 mg/dL (0.52-1.04) 04/09/24 05:06 Nutrition Diagnosis: Underweight BMI r/t inadequate oral intake, unable to re-gain weight after significant loss aeb BMI 18.7, BMI previously 17.5 at office visit earlier this year Interventions: -Provided educ and encouraged sufficient intakes for recovery and to support healthy weight, discussed nutrient dense foods to consume to meet EER and frequency of eating, pt will continue to eat snacks provided in room or nursing station between meals as well -Ensure 1x/d EER: [id number] kcals (30-35 kcals/kg per BMI) Monitoring/Evaluations: PO intakes Electronically Signed by: Dorothy Ryan 04/09/24 14:17 Clinical Dietitian [address] [address]
--- NOTE | 2024-04-09 14:46 | CM.DPC ---
DCP SNF Planning: Per MD and Ortho PA, pt making good progress and to work with PT/OT today for likely need of SNF. Per PT, pt able to participate some but having orthostatics this morning and updated nursing staff. OT on hold this morning. JADE met bedside with pt, spouse (who like has dementia), Dtr Tierra, and another adult Dtr and they confirm they still feel SNF needed and preference remains 1) [facility]. Discussed modes of transport and family and pt currently feel private pay cabulance best for transportation and pt received quote from [facility] transport for $330 and from [facility] for $333 and family confirms they are agreeable with paying for this at discharge and aware depending on pt's bp issues might d/c tomorrow Tues or Wed. JADE spoke to admissions at [facility] and she confirms she received the referral and reviewed briefly and anticipate that they can accept and aware of possible d/c tomorrow or Wed and faxed updated ISABELLE, RN notes, and prog notes to review. Plan: JADE to follow closely in the AM to update [facility] to confirm if pt ready for d/c Tues or Wed and then to schedule transport with either [facility] or [facility] with family paying privately. KELL Shaikh
[2024-04-09] MEDS: NICOTINE 7 MG PATCH TOP (17:12)
[2024-04-09] MEDS: SODIUM CHLORIDE 0.9% FLUSH 10 ML IV (20:16)
[2024-04-10] VITALS (9 sets, daily range): BP systolic 110–155; BP diastolic 45–74; PULSE 61–103; RESP 15–18; TEMP 36.1–36.7; O2SAT 92–98
[2024-04-10] MEDS: IBUPROFEN 400 MG TABLET PO ×4 (00:20→23:59)
[2024-04-10 05:31] LABS: Add Manual Diff / Slide Review NO; Basophils Absolute Auto 0 /uL (0-100); Basophils Percent Auto 0.2 % (0-2); Eosinophils Absolute Auto 0 /uL (0-450); Eosinophils Percent Auto 0.4 % (2-4); Hemoglobin 7.5 g/dL (12.0-16.0); Lymphocytes Absolute Auto 1600 /uL (1100-4500); Lymphocytes Percent Auto 20.9 % (25-40); Mean Corpuscular HGB Conc 34.4 % (30-36); Mean Corpuscular Hemoglobin 35.8 PG (26-34); Mean Corpuscular Volume 104.3 fL (80-100); Monocytes Absolute Auto 800 /uL (0-900); Monocytes Percent Auto 10.3 % (3-14); Neutrophils Absolute Auto 5100 /uL (1500-7000); Neutrophils Percent Auto 68.2 % (50-75); Platelet Count 119 X10^3/uL (150-400); Red Blood Cell Count 2.11 X10^6/uL (4.0-5.2); Red Cell Distribution Width 13.8 % (11.6-14.8); White Blood Cell Count 7.4 X10^3/uL (4.5-11.0)
[2024-04-10] MEDS: ALBUTEROL 2.5 MG/3 ML NEB (ADULT) INH ×5 (08:02→22:43)
[2024-04-10] MEDS: OXYCODONE IR 5 MG TABLET PO (08:06)
[2024-04-10] MEDS: CALCIUM CARBONATE 500 MG TAB 1000 MG PO (08:08)
[2024-04-10] MEDS: ATORVASTATIN 20 MG TABLET 40 MG PO (08:08)
[2024-04-10] MEDS: FOLIC ACID 1 MG TABLET PO (08:08)
[2024-04-10] MEDS: MULTIVITAMIN 1 TABLET 1 TAB PO (08:08)
[2024-04-10] MEDS: CHOLECALCIFEROL (VITAMIN D3) 1,000 UNIT TABLET 1000 UNIT PO (08:08)
[2024-04-10] MEDS: DOCUSATE 100 MG CAPSULE PO ×2 (08:08→20:26)
[2024-04-10] MEDS: THIAMINE 100 MG TABLET PO (08:09)
[2024-04-10] MEDS: ACETAMINOPHEN 325 MG TABLET 650 MG PO (08:10)
[2024-04-10] MEDS: SODIUM CHLORIDE 0.9% FLUSH 10 ML IV ×2 (08:36→20:26)
--- NOTE | 2024-04-10 09:18 | OT.IP.EVAL ---
Current Diagnoses Age-related osteoporosis with current pathological fracture, left femur, initial encounter for fracture (04/07/24) Fracture of unspecified part of neck of left femur, initial encounter for closed fracture (04/07/24) Displaced intertrochanteric fracture of left femur, initial encounter for closed fracture (04/07/24) Other specified postprocedural states (04/07/24) Surgery Performed Operation Date: 04/08/24 09:00 Actual Procedures p fixation left hip fracture, nail/aiyana(Left) - Jammie Ramos MD Past Medical History (Last Reviewed 04/09/24 @ 08:01 by Jose Elias Betts MD) Acute renal failure (05/09/18) Anemia 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) Centrilobular emphysema (05/09/18) Diverticulosis of large intestine without hemorrhage (04/22/15) Former smoker (04/20/16) Hyperlipidemia (04/20/16) Hypertension (06/06/17) Lumbar spondylosis Osteoporosis (04/22/15) Other dietary vitamin B12 deficiency anemia (02/17/15) Peripheral arterial disease (02/13/16) Vascular claudication (04/20/16) Surgical History (Last Reviewed 04/09/24 @ 08:01 by Jose Elias Betts MD) Hx of sinus surgery S/P lumbar fusion (12/02/17) Status post bilateral cataract extraction Occupational Therapy Inpatient Evaluation/Re-Eval M1 PT/OT-IP Prior Functional Status Start: 04/08/24 08:54 Freq: NEEDED Status: Active Protocol: Document 04/10/24 09:18 [facility] (Rec: 04/10/24 09:27 [facility] [id number]) Medical Review Prior Functional Status Medical History Reviewed Yes Communication Unsure baseline diet Mobility and Gait Mod I with rollator in the house, does not drive, reports I with ADLs Activities of Daily Living and IADL's I and was taking care of her . Prior Functional Level (Other details) Lives with , pt denies O2 at home despite pulmonary history Social History Household Members spouse Living Arrangements House Number of Floors (Floors) One Floor Number of Stairs To Enter/Railing? 2 steps with wide rails. Home Environment Standard Height Toilet,Tub/ Shower Home Equipment Four Wheel Walker,Straight Cane,Hand Held Shower,Grab Bars In Shower Employment Status Retired M2 OT-IP Current Condition Start: 04/10/24 09:18 Freq: Status: Active Protocol: Document 04/10/24 09:18 [facility] (Rec: 04/10/24 09:27 [facility] [id number]) Occupational Therapy Current Condition Current Condition Evaluation Date 04/10/24 Treatment Diagnosis S/P fixation left hip fx,nail/ aiyana Diagnosis Onset Date 04/07/24 M3 OT- IP Subjective and Pain Start: 04/10/24 09:18 Freq: Status: Active Protocol: Document 04/10/24 09:18 [facility] (Rec: 04/10/24 09:27 [facility] [id number]) OT- Subjective Occupational Therapy Visit Type Type Initial Evaluation Visit Start Time 08:45 Visit Stop Time 09:18 Occupational Therapy Visit Comments Patient Comments Pt agreed to get up. Patient/Caregiver Goals TO get better. OT Pain Assessment Pain When Pain Assessed At Rest Pain Present Pain Present Denied Pain M4 OT- IP ADL's Start: 04/10/24 09:18 Freq: Status: Active Protocol: Document 04/10/24 09:18 [facility] (Rec: 04/10/24 09:27 [facility] [id number]) OT [id number] General Evaluation Self-Feeding Ability Independent OT ADL-Grooming Comments OT Grooming Comments NOt performed. OT ADL-Oral Care Comments Oral Care Comments NOt performed. OT ADL-Dressing General Eval Lower Body Dressing Ability Maximum Assistance Areas Needing Assistance Socks OT ADL-Toileting General Evaluation Toileting Ability Total Assistance Comments OT Toileting Comments [place] in place. OT ADL-Bathing Comments OT Bathing Comments Sponge bath more appropriate until able to mobilize more. Pt will benefit from a shower chair/tub bench at home. M5 OT- IP IADL's Start: 04/10/24 09:18 Freq: Status: Active Protocol: Document 04/10/24 09:18 [facility] (Rec: 04/10/24 09:27 [facility] [id number]) OT-Instrumental Activities of Daily Living Deficits IADL Deficits Identified Deficits Home Safety Awareness Awareness of Need for Assistance at Home Good Awareness Ability to Problem Solve Emergency Able to Problem Solve Situations Medication Management Medication Management Comments Pt did prior. Money Management Money Management Comments Pt did prior. Meal Preparation Meal Preparation Comments Pt will need assist. Digital Performance Analyst Digital Performance Analyst Comments Pt will need assist. Driving Driving Comments Pt states does not drive. M6 OT- IP Functional Cognition Start: 04/10/24 09:18 Freq: Status: Active Protocol: Document 04/10/24 09:18 [facility] (Rec: 04/10/24 09:27 [facility] [id number]) Cognitive Factors Limiting Selfcare Function Cognitive Ability Level of Alertness Alert Patient Orientation Name,Age,Birthday,Month,Date, Year,Day of Week,Place, Situation Attention Span Ability Capable of Focused Attention, Capable of Sustained Attention Ability to Follow Commands Able to Follow One Step Commands Cognitive Comments Cognitive Assessment Comments Pt able to follow commands for mobility needs. Pt is very pleasant and motivated to get better. OT- Vision and Hearing OT- Hearing Assessment OT- Hearing Assessment WFL OT- Vision Assessment Visual Acuity Glasses All The Time Visual Attentiveness WFL Occular Pursuits WFL M7 OT- IP Mobility and Balance Start: 04/10/24 09:18 Freq: Status: Active Protocol: Document 04/10/24 09:18 [facility] (Rec: 04/10/24 09:27 [facility] [id number]) OT- Bed Mobility Assessment Supine to Sit Supine to Sit Assist Moderate Assistance Scooting Scooting to Edge of Bed Standby Assistance OT-Transfer Assessment Sit to and From Stand Sit to and from Stand Maximum Assistance Transfers Transfer Ability Moderate Assistance,Maximum Assistance Technique Transfer Destination Bed,Chair Transfer Technique Stand Step Pivot Devices Transfer Assistive Devices Gait Belt,Front Wheeled Walker Comments Mobility Comments Pt assist to help lift her LLE to the edge of the bed. MAX AX 1 to stand to the FWW and then assist for balance and to help guide the FWW to get to the recliner. Pt's BP dropped from 114/45 to 95/40 and feeling symptomatic, nursing aid present and aware. Also mentioned to nursing aid pt nose very dry from the O2 and having some blood after blowing her nose. OT- Balance Assessment Sitting Balance and Reactions Static Sitting Balance Ability Good Dynamic Sitting Balance Ability Fair Standing Balance and Reactions Static Standing Balance Ability Poor Dynamic Standing Balance Ability Poor M8 OT- IP Objective Assessments Start: 04/10/24 09:18 Freq: Status: Active Protocol: Document 04/10/24 09:18 [facility] (Rec: 04/10/24 09:27 [facility] [id number]) OT Gross Range of Motion Upper Extremity Range of Motion Assessment Within Functional Limits OT Strength Comments Strength Comments Grossly WFL for her age. M9 OT- IP Assessment and Plan Start: 04/10/24 09:18 Freq: Status: Active Protocol: Document 04/10/24 09:18 [facility] (Rec: 04/10/24 09:27 [facility] [id number]) OT Summary Assessment and Plan Potential Rehabilitation Potential Good Analytic Complexity at Evaluation Moderate Summary OT Impairments Pain,Strength,Balance, Functional Mobility,Grooming, Dressing,Toileting,Bathing, Toilet Transfers,Shower Transfers,Activity Tolerance Progress Towards Goals Progressing Toward Goals Assessment Summary Pt MOD complexity and main barriers are decreased balance , strength, and now needing extensive 1-2 person assist for ADL and mobility needs. Went over leg exercises to do in bed to help with strengthening. Pt is a good candidate to go to skilled rehab prior to going home. Goals Self-Feeding Goal Independent Grooming Goal Independent Dressing Goal Minimal Assistance Toileting Goal Standby Assistance Bathing Goal Minimal Assistance Toilet Transfer Goal Standby Assistance Shower Transfer Goal Standby Assistance Days to Meet Goals 20 Frequency of Treatment Other frequency 5x/week Treatment Plan OT Treatment Plan ADL Training,Functional Mobility,Patient/Family Education,Discharge Planning Other Treatment Recommendations and Next LB dressing equipment Treatment Focus education Discharge Recommendations OT Discharge Recommendations SNF Rehab Transportation Needs at Discharge Wheelchair/Cabulance
--- NOTE | 2024-04-10 09:41 | DI.RAD.S_ITS ---
PROCEDURE: XR CHEST 1V INDICATIONS: dyspnea, hypoxia, wheezing TECHNIQUE: One view of the chest was acquired. COMPARISON: [facility], CR, XR CHEST 1V, 05/23/2021, 10:19. FINDINGS: Surgical changes and devices: None. Lungs and pleura: Lungs are clear. No pleural effusions or pneumothorax. Mediastinum: Mediastinal contours appear normal. Heart size is normal. Bones and chest wall: No suspicious bony lesions. Overlying soft tissues appear unremarkable. IMPRESSION: No acute cardiopulmonary abnormality is seen. Dictated by: Eldon Rogers M.D. on 04/10/2024 at 11:21 Approved by: Eldon Rogers M.D. on 04/10/2024 at 11:29
[2024-04-10] MEDS: ENOXAPARIN 30 MG/0.3 ML SYRINGE SUBCUT (11:01)
--- NOTE | 2024-04-10 11:23 | PT.IPTN ---
Current Diagnoses Age-related osteoporosis with current pathological fracture, left femur, initial encounter for fracture (04/07/24) Fracture of unspecified part of neck of left femur, initial encounter for closed fracture (04/07/24) Displaced intertrochanteric fracture of left femur, initial encounter for closed fracture (04/07/24) Other specified postprocedural states (04/07/24) Surgery Performed Operation Date: 04/08/24 09:00 Actual Procedures p fixation left hip fracture, nail/aiyana(Left) - Jammie Ramos MD Physical Therapy Treatment Note M2 PT-IP Current Condition Start: 04/08/24 08:54 Freq: NEEDED Status: Active Protocol: Document 04/10/24 11:04 SP (Rec: 04/10/24 12:33 SP [id number]) Physical Therapy Current Condition Current Condition Evaluation Date 04/09/24 Treatment Diagnosis Fall, left intratrochanteric hip fracture s/p nailing M3 PT-IP Subjective Start: 04/08/24 08:54 Freq: NEEDED Status: Active Protocol: Document 04/10/24 11:04 SP (Rec: 04/10/24 12:33 SP [id number]) Subjective Physical Therapy Visit Type Type Treatment Note Visit Start Time 11:04 Visit Stop Time 11:23 Notes Hgb dropped from 7.7 to 7.5 since 04/09/24. Hct 22.0 Number of PRODUCT TECHNOLOGY SCIENTIST Visits 1 Physical Therapy Visit Comments Patient Comments Pt working with RT when arrived, agreeable to work with PRODUCT TECHNOLOGY SCIENTIST when breathing tx completed. Therapy Pain Assessment Pain When Pain Assessed During Mobility Pain Present Pain Present Pain Reported Location Left Hip Intensity 9 Scale Used Numeric (0 - 10) Description Sharp,With Movement Pain Behaviors Calling Out,Facial Grimacing, Wincing Pain Management Techniques Distraction,Elevation, Modification of Treatment,Re- positioning,Timing of Activity with Medications M4 PT-IP Mobility and Gait Start: 04/08/24 08:54 Freq: NEEDED Status: Active Protocol: Document 04/10/24 11:04 SP (Rec: 04/10/24 12:33 SP [id number]) PT-Transfer Assessment Sit to and From Stand Sit to and from Stand Maximum Assistance Equipment Transfer Assistive Device Gait Belt,Front Wheeled Walker Orthotic/Prosthetic Devices or Brace: No Transfers Transfer Destination Chair Transfer Technique Sit to stand only Comments Mobility Comments Pt up in chair when arrived, finishing up breathing tx with RT. SaO2 94% on 0.5 L. PRODUCT TECHNOLOGY SCIENTIST took Vitals: L UE sit 116/45 HR SaO2 91-93% on 0.5 L (end tx with RT), standing 108/42 HR 98 SaO2 82-83% on 0.5 L> 1L 87%, 1.5 L with breath 88%. Min A STS from chair, cues for WB into LLE use FWW assess vitals. Pt reprted incresaed pain 10/24 and hand to sit due to pain I can't do anymore. Min A control sit cues for UEs on chair arms support self guidence. INstruction LLE ex seated : LAQ, quad set, glut set, heel slide with use strap placed on pt foot, cues for knee alignment with foot, not valgus cave. Pt seated back in chair had call light and all needs in reach and chair alarm donned before left. Gait Assessment Comments Gait Comments only tolerated standing today up to 2 min during vital assessment, decreased LLE stance time, tends to wt shift over RLE. PT-Balance Assessment Sitting Balance and Reactions Static Sitting Balance Ability Good Dynamic Sitting Balance Ability Fair Standing Balance and Reactions Static Standing Balance Ability Fair Dynamic Standing Balance Ability Poor Device Used FWW M5 PT-IP Objective Assessments Start: 04/08/24 08:54 Freq: NEEDED Status: Active Protocol: Document 04/09/24 10:25 MB (Rec: 04/09/24 11:20 MB [id number]) Orientation Orientation/Cognition Level of Alertness Alert Safety Awareness Decreased Safety Awareness Memory Description No Deficits Noted Gross Range of Motion Upper Extremity ROM Impairments Defer to OT Lower Extremity ROM Assessment Left Impaired Impairments Left knee extension lacks about 10 deg in sitting and pt limits left hip range today, left ankle DF limited today and with some inversion with movement Strength Lower Extremity Strength Assessment Left Impaired Comments Strength Comments R ankle and knee at least 4/5 Coordination Assessment Gross Coordination Gross Coordination Impaired Assessment Coordination Comments Slow mobility to EOB Sensation Assessment Comments Sensation Comments Denies paresthesias M6 PT-IP Treatment Start: 04/08/24 08:54 Freq: NEEDED Status: Active Protocol: Document 04/10/24 11:04 SP (Rec: 04/10/24 12:33 SP [id number]) Physical Therapy Treatment Exercises Exercises Ankle Pumps,Gluteal Sets,Quad Sets,Heel Slides,Seated Knee Flexion/Extension Education Education Provided Weight Bearing Status,Safety Other Treatments Other Treatment Performed see mobility comments: 5 reps each LLE M7 PT-IP Assessment and Plan Start: 04/08/24 08:54 Freq: NEEDED Status: Active Protocol: Document 04/10/24 11:04 SP (Rec: 04/10/24 12:33 SP [id number]) PT Summary Assessment and Plan Potential Rehabilitation Potential Fair Status of Condition at Evaluation Unstable Summary Impairments Pain,ROM,Strength,Balance, Coordination,Bed Mobility, Transfers,Gait,Activity Tolerance Progress Towards Goals Slow Progress due to Medical Issues,Slow Progress due to Activity Tolerance Assessment Summary Pt is an 83 y/o female presenting with decreased mobility s/p fall and left hip fracture. Family reports pt has a history of falling at home. Pt Hgb dropped from 7.7 to 7.5 overnight, staff request continue PT with pt today. PRODUCT TECHNOLOGY SCIENTIST checks 116/45 to 108/42 HR 98 SaO2 low 90s at rest, desaturation 0.5 82% in standing, increased 1L with 87 %. Unable further progression activty to due to pain and challenge recovery O2. Pt returned to 92% on 1L resting in chair, cues breath, declined light-headed with mobility. Pt requires min A for mobility STS only /c FWW today. Medical presentation is currently limiting mobility . REcommending SNF recommendation for strengthening and functional mobility. Goals Bed Mobility Goal Independent Transfer Goal Independent,Front Wheeled Walker Gait Goal Independent,Front Wheel Walker Gait Distance 100 Days to Meet Goals 5 Frequency of Treatment Other frequency x1-2p Treatment Plan Physical Therapy Treatment Plan Bed Mobility Training,Transfer Training,Gait Training, Therapeutic Exercise,Balance Retraining,Post Op Education, Discharge Planning,Hot or Cold Pack,Neuromuscular Re-ed, Coordination Retraining,Manual Therapy Other Recommendations and Next Treatment Bed mobility, transfers, gait Focus if able. Weight Bearing Status Weight Bearing Status Weight Bear as Tolerated Recommendations To Nursing Amount of Assist Needed 2 Person Assist Discharge Recommendations PT Discharge Recommendations SNF Rehab Transportation Needs at Discharge Wheelchair/Cabulance
--- NOTE | 2024-04-10 11:23 | PT.IPTN ---
Current Diagnoses Age-related osteoporosis with current pathological fracture, left femur, initial encounter for fracture (04/07/24) Fracture of unspecified part of neck of left femur, initial encounter for closed fracture (04/07/24) Displaced intertrochanteric fracture of left femur, initial encounter for closed fracture (04/07/24) Other specified postprocedural states (04/07/24) Surgery Performed Operation Date: 04/08/24 09:00 Actual Procedures p fixation left hip fracture, nail/aiyana(Left) - Jammie Ramos MD Physical Therapy Treatment Note M2 PT-IP Current Condition Start: 04/08/24 08:54 Freq: NEEDED Status: Active Protocol: Document 04/10/24 11:04 SP (Rec: 04/10/24 12:33 SP [id number]) Physical Therapy Current Condition Current Condition Evaluation Date 04/09/24 Treatment Diagnosis Fall, left intratrochanteric hip fracture s/p nailing M3 PT-IP Subjective Start: 04/08/24 08:54 Freq: NEEDED Status: Active Protocol: Document 04/10/24 11:04 SP (Rec: 04/10/24 12:33 SP [id number]) Subjective Physical Therapy Visit Type Type Treatment Note Visit Start Time 11:04 Visit Stop Time 11:23 Notes Hgb dropped from 7.7 to 7.5 since 04/09/24. Hct 22.0 Number of HARNESS CLEANER Visits 1 Physical Therapy Visit Comments Patient Comments Pt working with RT when arrived, agreeable to work with HARNESS CLEANER when breathing tx completed. Therapy Pain Assessment Pain When Pain Assessed During Mobility Pain Present Pain Present Pain Reported Location Left Hip Intensity 9 Scale Used Numeric (0 - 10) Description Sharp,With Movement Pain Behaviors Calling Out,Facial Grimacing, Wincing Pain Management Techniques Distraction,Elevation, Modification of Treatment,Re- positioning,Timing of Activity with Medications M4 PT-IP Mobility and Gait Start: 04/08/24 08:54 Freq: NEEDED Status: Active Protocol: Document 04/10/24 11:04 SP (Rec: 04/10/24 12:33 SP [id number]) PT-Transfer Assessment Sit to and From Stand Sit to and from Stand Maximum Assistance Equipment Transfer Assistive Device Gait Belt,Front Wheeled Walker Orthotic/Prosthetic Devices or Brace: No Transfers Transfer Destination Chair Transfer Technique Sit to stand only Comments Mobility Comments Pt up in chair when arrived, finishing up breathing tx with RT. SaO2 94% on 0.5 L. HARNESS CLEANER took Vitals: L UE sit 116/45 HR SaO2 91-93% on 0.5 L (end tx with RT), standing 108/42 HR 98 SaO2 82-83% on 0.5 L> 1L 87%, 1.5 L with breath 88%. Min A STS from chair, cues for WB into LLE use FWW assess vitals. Pt reprted incresaed pain 10/24 and hand to sit due to pain I can't do anymore. Min A control sit cues for UEs on chair arms support self guidence. INstruction LLE ex seated : LAQ, quad set, glut set, heel slide with use strap placed on pt foot, cues for knee alignment with foot, not valgus cave. Pt seated back in chair had call light and all needs in reach and chair alarm donned before left. Gait Assessment Comments Gait Comments only tolerated standing today up to 2 min during vital assessment, decreased LLE stance time, tends to wt shift over RLE. PT-Balance Assessment Sitting Balance and Reactions Static Sitting Balance Ability Good Dynamic Sitting Balance Ability Fair Standing Balance and Reactions Static Standing Balance Ability Fair Dynamic Standing Balance Ability Poor Device Used FWW M5 PT-IP Objective Assessments Start: 04/08/24 08:54 Freq: NEEDED Status: Active Protocol: Document 04/09/24 10:25 MB (Rec: 04/09/24 11:20 MB [id number]) Orientation Orientation/Cognition Level of Alertness Alert Safety Awareness Decreased Safety Awareness Memory Description No Deficits Noted Gross Range of Motion Upper Extremity ROM Impairments Defer to OT Lower Extremity ROM Assessment Left Impaired Impairments Left knee extension lacks about 10 deg in sitting and pt limits left hip range today, left ankle DF limited today and with some inversion with movement Strength Lower Extremity Strength Assessment Left Impaired Comments Strength Comments R ankle and knee at least 4/5 Coordination Assessment Gross Coordination Gross Coordination Impaired Assessment Coordination Comments Slow mobility to EOB Sensation Assessment Comments Sensation Comments Denies paresthesias M6 PT-IP Treatment Start: 04/08/24 08:54 Freq: NEEDED Status: Active Protocol: Document 04/10/24 11:04 SP (Rec: 04/10/24 12:33 SP [id number]) Physical Therapy Treatment Exercises Exercises Ankle Pumps,Gluteal Sets,Quad Sets,Heel Slides,Seated Knee Flexion/Extension Education Education Provided Weight Bearing Status,Safety Other Treatments Other Treatment Performed see mobility comments: 5 reps each LLE M7 PT-IP Assessment and Plan Start: 04/08/24 08:54 Freq: NEEDED Status: Active Protocol: Document 04/10/24 11:04 SP (Rec: 04/10/24 12:33 SP [id number]) PT Summary Assessment and Plan Potential Rehabilitation Potential Fair Status of Condition at Evaluation Unstable Summary Impairments Pain,ROM,Strength,Balance, Coordination,Bed Mobility, Transfers,Gait,Activity Tolerance Progress Towards Goals Slow Progress due to Medical Issues,Slow Progress due to Activity Tolerance Assessment Summary Pt is an 83 y/o female presenting with decreased mobility s/p fall and left hip fracture. Family reports pt has a history of falling at home. Pt Hgb dropped from 7.7 to 7.5 overnight, staff request continue PT with pt today. HARNESS CLEANER checks 116/45 to 108/42 HR 98 SaO2 low 90s at rest, desaturation 0.5 82% in standing, increased 1L with 87 %. Unable further progression activty to due to pain and challenge recovery O2. Pt returned to 92% on 1L resting in chair, cues breath, declined light-headed with mobility. Pt requires min A for mobility STS only /c FWW today. Medical presentation is currently limiting mobility . REcommending SNF recommendation for strengthening and functional mobility. Goals Bed Mobility Goal Independent Transfer Goal Independent,Front Wheeled Walker Gait Goal Independent,Front Wheel Walker Gait Distance 100 Days to Meet Goals 5 Frequency of Treatment Other frequency x1-2p, 1-2x/day Treatment Plan Physical Therapy Treatment Plan Bed Mobility Training,Transfer Training,Gait Training, Therapeutic Exercise,Balance Retraining,Post Op Education, Discharge Planning,Hot or Cold Pack,Neuromuscular Re-ed, Coordination Retraining,Manual Therapy Other Recommendations and Next Treatment Bed mobility, transfers, gait Focus if able. Weight Bearing Status Weight Bearing Status Weight Bear as Tolerated Recommendations To Nursing Amount of Assist Needed 2 Person Assist Discharge Recommendations PT Discharge Recommendations SNF Rehab Transportation Needs at Discharge Wheelchair/Cabulance
--- NOTE | 2024-04-10 12:07 | P.PN_ITS ---
Subjective Subjective Interval history: S: Still little dizzy with standing. Was able to go up to chair with PT today. Moderate hip pain. Some dyspnea, and wheezing. Exam Vital Signs (past 8 hours): - 04/10/24 08:00 04/10/24 08:05 Temperature 98.0 F Blood Pressure 116/60 Pulse Oximetry 95 Oxygen Delivery Method Nasal Cannula Oxygen Flow Rate 2 Fraction of Inspired Oxygen 28 Fraction of Inspired Oxygen 28 SaO2/FiO2 Ratio 339 Oxygen Delivery Method Nasal Cannula Oxygen Flow Rate 2 Narrative Exam Narrative: NAD, alert and oriented. Fluent speech. Lungs are wheezy, normal rate and effort. Heart is regular, no murmur gallop or rub. Abdomen is soft, non distended. Extremities are free of edema. 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) Former smoker (04/20/16) Peripheral arterial disease (02/13/16) Osteoporosis (04/22/15) Diverticulosis of large intestine without hemorrhage (04/22/15) Other dietary vitamin B12 deficiency anemia (02/17/15) Surgical History S/P lumbar fusion (12/02/17) Status post bilateral cataract extraction Hx of sinus surgery Family History Mother CAD (coronary artery disease) Social History marital status: number of children: 4 household members: spouse lives independently: Yes caregiver/support person: Yes (Daughters) housing: house pets and animals: No education level: high school occupational status: other 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 sohail/buddhism: None travel history: recent leisure activities: sports and other Smoking Status: Current some day smoker Tobacco: How many years used: 40 Smokeless tobacco user: other quit status: quit date established second hand exposure: No alcohol intake: current substance use type: does not use Assessment & Plan Assessment & Plan narrative: 1. Comminuted intertrochanteric fx of the L hip w/varus angulation after GLF, S/P ORIF. Present on admission and active. Patient will go to the operating today with Orthopedic surgery for definitive repair (planned nail/aiyana per Dr. Ramos). 2. Hypertension, active. Patient is untreated at baseline. With what appears to be reasonable pain control, blood pressures have been in the 130s to 140 systolic. Given her advanced age, would tolerate blood pressures up to 160 systolic. She is at higher risk for orthostasis and falls with tighter blood pressure control. 3. PAD with claudication, stable. She is on aspirin and atorvastatin at baseline. These will be continued. 4. 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 She has been placed on budesonide nebulizers as well as albuterol nebulizers as needed. Will monitor respiratory status postoperatively. Nicotine patch prn. 5. Acute blood loss anemia secondary to fracture and chronic anemia, present on admission and active. Hemoglobin was 12.6 on admission. It is down to 10.5 today. Will check a B12 and folate level given her MCV. MCV elevation may be d/t alcohol use as well. 6. Hyponatremia, active. Mild at 136. Will follow. 7. K[place]NN, present on admission and improved. Creatinine was mildly elevated at 1.27 on admission. It is improved at 1.08 this morning. Her baseline is normal. Will monitor response to IV fluids and hydration. 8. Wheezing lungs and acute hypoxic respiratory failure, present on admission and active. PLAN: -PT/OT assessments. -[facility] discharge 2/26 (screen Covid requested by SNF) -gentle IV fluids and monitor sodium and renal function. -albuterol nebs and check chest x-ray. HOLLI: 04/11. [facility]. Time-Based Coding :: [TOTAL MINUTES] spent with patient and on the chart (including review of chart, obtaining history, exam, reviewing outside data, placing orders, documenting exam and treatment plan, and counseling patient) on [DATE]. Quality VTE Deep Vein Thrombosis/Pulmonary Embolism Present on Admission: No
--- NOTE | 2024-04-10 12:16 | CM.DPC ---
DCP Cont. Reviewed EMR and team rounds for status updates. Called pt's daughter and discussed the d/c plan for tomorrow am, and provided the contact info for the medical transport company to call and pay for pt's ride tomorrow. Radha Franny is hoping for her to arrive around 11:00am, dtr is going to request a 10:00am p/u time, she will call us back to confirm. Will call the facility in the am to confirm arrival time.
[2024-04-10 14:59] LABS: COVID19 -Nasal RAPID Negative (Negative)
--- NOTE | 2024-04-10 15:42 | PT-IP ANOTE ---
checked on pt and pt refused PT. stated that she does not want to get out of the bed and she will do the exercises that morning therapist gave her. informed pt importance of mobility but still refused PT
--- NOTE | 2024-04-10 17:56 | P.PN_ITS ---
Subjective Subjective Date Patient Seen: 04/09/24 Time Patient Seen: 12:59 Interval history: Taniya is a very pleasant 83 year old female who is POD#2 s/p Cephalomedullary nail for a left hip intertrochanteric fracture by Dr. Ramos. This afternoon she is sitting up in bed comfortably. She worked with PT today felt she made very good progress w/ her ambulation. She has been working on her exercises taught by PT. Denies any significant pain at rest but reports moderate to severe pain with movement. She does have a very strong family support system in the area, she normally lives at home w/ her on [address] but plans to go to SNF for further rehab prior to going home. She has a [place] in. Exam Vital Signs (past 8 hours): - 04/10/24 12:00 04/10/24 16:00 Temperature 97.0 F L 97.3 F L Pulse Rate 103 H 89 Respiratory Rate 16 15 Blood Pressure 114/45 L 110/68 Pulse Oximetry 96 96 Oxygen Flow Rate 0 Fraction of Inspired Oxygen 28 SaO2/FiO2 Ratio 339 Oxygen Delivery Method Nasal Cannula Oxygen Flow Rate 0 Narrative Exam Narrative: Patient lying comfortably in bed during our interview today. No acute distress. AOx3. Grossly normal alignment of the LLE. 5/5 strength with DF, PF, EHL bilaterally. Gross sensation intact throughout bilateral lower extremities. Calves soft and non-tender bilaterally. SCDs are on and functioning. Brisk capillary refill, pulses intact. Post-surgical Aquacel dressing clean, dry and intact over the left hip/ without mild bloody drainage. Objective Labs 04/10/24 04:32 04/09/24 05:06 Labs: Laboratory Results - last 24 hr 04/10/24 04/10/24 04:32 14:30 WBC 7.4 RBC 2.11 L Hgb 7.5 L Hct 22.0 L MCV 104.3 H MCH 35.8 H MCHC 34.4 RDW 13.8 Plt Count 119 L Neut % (Auto) 68.2 Lymph % (Auto) 20.9 L [place] % (Auto) 10.3 Eos % (Auto) 0.4 L Baso % (Auto) 0.2 Neut # (Auto) 5100 Lymph # (Auto) 1600 [place] # (Auto) 800 Eos # (Auto) 0 Baso # (Auto) 0 SARS-CoV-2 (PCR) Negative [facility] Medical History Acute renal failure (05/09/18) Centrilobular emphysema (05/09/18) Anemia Lumbar spondylosis Hypertension (06/06/17) Vascular claudication (04/20/16) Hyperlipidemia (04/20/16) 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) Former smoker (04/20/16) Peripheral arterial disease (02/13/16) Osteoporosis (04/22/15) Diverticulosis of large intestine without hemorrhage (04/22/15) Other dietary vitamin B12 deficiency anemia (02/17/15) Surgical History S/P lumbar fusion (12/02/17) Status post bilateral cataract extraction Hx of sinus surgery Family History Mother CAD (coronary artery disease) Social History marital status: number of children: 4 household members: spouse lives independently: Yes caregiver/support person: Yes (Daughters) housing: house pets and animals: No education level: high school occupational status: other 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 2) Currently on enoxaparin for VTE prophylaxis. May change to ASA 81mg BID if ambulating well. Continue VTE prophylaxis for 4 weeks after surgery. 3) Pain control and disposition per hospitalist service. 4) Follow up w/ [facility] in 2 weeks for wound check. Postoperative Procedures: Procedures Operation Date: 04/08/24 09:00 Actual Procedure Side Surgeon p fixation left hip fracture, nail/aiyana Left Jammie Ramos MD Postoperative day: 2 Quality VTE Deep Vein Thrombosis/Pulmonary Embolism Present on Admission: No
[2024-04-10] MEDS: BUDESONIDE 0.5 MG/2 ML NEB INH (18:17)
[2024-04-10] MEDS: SENNOSIDES 8.6 MG TABLET 17.2 MG PO (20:25)
[2024-04-11] VITALS: BP 121/56; PULSE 95; RESP 19; TEMP 36.1; O2SAT 95
[2024-04-11] MEDS: IBUPROFEN 400 MG TABLET PO ×2 (03:51→08:33)
[2024-04-11 04:00] VITALS: BP 102/50; PULSE 59; RESP 18; TEMP 35.6; O2SAT 94
[2024-04-11] MEDS: ALBUTEROL 2.5 MG/3 ML NEB (ADULT) INH (07:40)
[2024-04-11] MEDS: BUDESONIDE 0.5 MG/2 ML NEB INH (07:40)
[2024-04-11 07:42] VITALS: O2SAT 97
--- NOTE | 2024-04-11 07:48 | P.DS_ITS ---
History of Present Illness History of Present Illness Chief complaint: Fall Narrative: From H&P: 83-year-old female with past medical history of hyperlipidemia and hypertension presents with a ground-level fall and left hip pain. Per patient's report the patient was just ambulating when she accidentally tripped and fall onto her left hip. The patient denies any head injury or loss of consciousness. The patient states that her left hip pain was very severe and she is unable to bear weight on it. Otherwise the patient denies any recent fever, chills, nausea, vomiting, diarrhea, chest pain or shortness of breath. In our emergency room, the patient was found to have left hip fracture. Labs were relatively benign. Orthopedic surgeon was consulted and plan for surgery. The patient was given IV fluid and pain control. Discharge Providers Provider Date of admission: 04/07/24 20:56 Discharge Date: 04/11/24 Primary care physician: Ghazal Jones DO Consults: 04/07/24 21:21 Consult to Occupational Therapy Evaluate & Treat Comment: Physician Instructions: Evaluate and treat Consult to Physical Therapy Evaluate & Treat Comment: Physician Instructions: Evaluate and Treat 04/07/24 21:46 Consult to Dietitian, Adult Routine Comment: Reason For Exam: low BMI 04/08/24 08:14 Consult to Orthopedic Surgery Routine Comment: Consulting Provider: Jammie Ramos Reason for consultation: Left hip fracture Has provider been notified: Yes 04/08/24 10:56 Consult to Discharge Planning Routine Comment: Consult to Occupational Therapy Evaluate & Treat Comment: Physician Instructions: Evaluate and treat Consult to Physical Therapy Evaluate & Treat Comment: Physician Instructions: Evaluate and Treat Discharge provider: Jose Elias Betts MD Summary Hospital Course Discharge Diagnosis: 1. Comminuted intertrochanteric fx of the L hip w/varus angulation after GLF, S/P ORIF. Present on admission and active. Patient will go to the operating today with Orthopedic surgery for definitive repair (planned nail/aiyana per Dr. Ramos). 2. Hypertension, active. Patient is untreated at baseline. With what appears to be reasonable pain control, blood pressures have been in the 130s to 140 systolic. Given her advanced age, would tolerate blood pressures up to 160 systolic. She is at higher risk for orthostasis and falls with tighter blood pressure control. 3. PAD with claudication, stable. She is on aspirin and atorvastatin at baseline. These will be continued. 4. 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 She has been placed on budesonide nebulizers as well as albuterol nebulizers as needed. Will monitor respiratory status postoperatively. Nicotine patch prn. 5. Acute blood loss anemia secondary to fracture and chronic anemia, present on admission and active. Hemoglobin was 12.6 on admission. 6. Hyponatremia, active. Mild at 136. Will follow. 7. KAITLYNN, present on admission and improved. Creatinine was mildly elevated at 1.27 on admission. It is improved at 1.08 this morning. Her baseline is normal. Will monitor response to IV fluids and hydration. 8. Wheezing lungs (COPD exacerbation) and acute hypoxic respiratory failure, present on admission and active. Hospital Course: She was admitted with a ground level fall and subsequent femur fracture which was repaired with ORIF. She was placed on DVT prophylaxis postprocedure. She did have some dyspnea and hypoxemia related to her COPD. This improved with breathing treatments. She will transfer to rehab on 1 L of oxygen. I suspect that her COPD is more severe baseline. She also did have blood loss anemia but this remained relatively stable. She was history of alcohol use and did relatively well. She had mild volume depletion which resolved with fluid hydration. Status at Discharge Cognitive/behavioral status at discharge: oriented Functional status at discharge: uses cane/walker Overall status at discharge: patient is progressing back to baseline Time Spent with Patient Time spent: Greater than 30 minutes Exam Vital Signs (past 8 hours): - 04/11/24 00:00 04/11/24 04:00 04/11/24 07:42 Temperature 97.0 F L 96.0 F L Pulse Rate 95 H 59 L Respiratory Rate 19 18 Blood Pressure 121/56 L 102/50 L Pulse Oximetry 95 94 97 Oxygen Delivery Method Nasal Cannula Oxygen Flow Rate 1 1 1 Fraction of Inspired Oxygen 24 SaO2/FiO2 Ratio 383 Oxygen Delivery Method Nasal Cannula Oxygen Flow Rate 1 Narrative Exam Narrative: NAD, alert and oriented. Fluent speech. Lungs are clear, normal rate and effort. Heart is regular, no murmur gallop or rub. Abdomen is soft, non distended. Extremities are free of edema. Objective ECG Impression: Multiple studies: Chest x-ray: No acute cardiopulmonary abnormality is seen. Hip x-ray: Operative imaging obtained during ORIF of an intertrochanteric fracture of the left hip. Head CT: No acute intracranial pathology. C-spine CT: 1. No displaced cervical fracture or traumatic subluxation. 2. Cervical spondylosis. 3. Osteopenia. 4. Old T5 compression. Hip x-ray: Comminuted intertrochanteric fracture of the left hip with varus angulation. 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) Former smoker (04/20/16) Peripheral arterial disease (02/13/16) Osteoporosis (04/22/15) Diverticulosis of large intestine without hemorrhage (04/22/15) Other dietary vitamin B12 deficiency anemia (02/17/15) Surgical History S/P lumbar fusion (12/02/17) Status post bilateral cataract extraction Hx of sinus surgery Family History Mother CAD (coronary artery disease) Social History marital status: number of children: 4 household members: spouse lives independently: Yes caregiver/support person: Yes (Daughters) housing: house pets and animals: No education level: high school occupational status: other 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 Comminuted intertrochanteric fx of the L hip w/varus angulation after GLF, S/P ORIF. Present on admission and active. Patient will go to the operating today with Orthopedic surgery for definitive repair (planned nail/aiyana per Dr. Ramos). 2. Hypertension, active. Patient is untreated at baseline. With what appears to be reasonable pain control, blood pressures have been in the 130s to 140 systolic. Given her advanced age, would tolerate blood pressures up to 160 systolic. She is at higher risk for orthostasis and falls with tighter blood pressure control. 3. PAD with claudication, stable. She is on aspirin and atorvastatin at baseline. These will be continued. 4. 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 She has been placed on budesonide nebulizers as well as albuterol nebulizers as needed. Will monitor respiratory status postoperatively. Nicotine patch prn. 5. Acute blood loss anemia secondary to fracture and chronic anemia, present on admission and active. Hemoglobin was 12.6 on admission. 6. Hyponatremia, active. Mild at 136. Will follow. 7. KAITLYNN, present on admission and improved. Creatinine was mildly elevated at 1.27 on admission. It is improved at 1.08 this morning. Her baseline is normal. Will monitor response to IV fluids and hydration. 8. Wheezing lungs (COPD exacerbation) and acute hypoxic respiratory failure, present on admission and active. 8. Wheezing lungs and acute hypoxic respiratory failure, present on admission and active. Plan of Treatment: Stable for discharge to [facility] with ongoing rehabilitation efforts. Albuterol for her COPD. Discharge Plan Discharge Plan Patient Disposition: [facility] Other facility: [facility] Under care of provider: [facility] provider Provider Discharge Comment: Stable for discharge with rehabilitation efforts. Albuterol for wheezing, and recheck hemoglobin. Discharge orders & Medications Prescriptions: New folic acid 1 mg Tablet 1 mg PO DAILY Qty: 30 0RF multivitamin with folic acid [Tab-A-Amber] 400 mcg Tablet 1 tab PO DAILY Qty: 30 0RF nicotine 7 mg/24 hr Patch 24 Hour 7 mg topical DAILY PRN (Reason: nicotine withdrawal) Qty: 14 0RF oxycodone 5 mg Tablet 5 mg PO Q3H PRN (Reason: Pain, Moderate (4-6)) Qty: 15 0RF lorazepam [Ativan] 0.5 mg tablet 0.5 mg PO TID PRN (Reason: anxiety) Qty: 14 0RF albuterol sulfate 90 mcg/actuation HFA aerosol inhaler 2 puff inhalation Q6H PRN (Reason: shortness of breath or wheezing) Qty: 8.5 0RF aspirin 81 mg capsule 81 mg PO BID Qty: 60 0RF Continued (DME) Disabled Parking See Rx Instructions .ROUTE .MEDSUPPLY Qty: 1 0RF Rx Instructions: Patient qualifies for disabled parking as per the attached form. atorvastatin 40 mg tablet 40 mg PO DAILY Qty: 60 0RF Rx Instructions: APPT DUE WITH [facility]. PLEASE CALL TO SCHEDULE BEFORE END OF RX/FUTURE FILLS. THANK YOU 03/21/23 ibandronate 150 mg tablet 150 mg PO QMONTH Qty: 14 3RF multivitamin tablet 1 tab PO DAILY cholecalciferol (vitamin D3) 25 mcg (1,000 unit) capsule 25 mcg PO DAILY calcium carbonate-vitamin D3 600 mg-10 mcg (400 unit) capsule 1 cap PO DAILY fluticasone furoate-vilanterol [Breo Ellipta] 100-25 mcg/dose blister with device 1 inh inhalation DAILY Qty: 60 0RF acetaminophen [Tylenol Extra Strength] 500 mg tablet 500 mg PO Q4H PRN (Reason: pain) Qty: 60 0RF Rx Instructions: take 1 tablet by mouth every four hours as needed for pain lidocaine 4 % adhesive patch,medicated 1 patch topical DAILY PRN (Reason: pain) Qty: 15 0RF Rx Instructions: may leave on for up to 12 hrs Discontinued aspirin 81 mg tablet,delayed release (DR/EC) 81 mg PO DAILY Medication counseling provided by Pharmacist: No Follow up/Referrals: Jammie Ramos MD [Physician] - 2 Weeks (Follow up w/ PA or Dr Ramos at [facility] in 2 weeks for wound check.) Ghazal Jones DO [Primary Care Provider] - Discharge Health Status Multidrug resistant organism: No MDRO Diet/Activity/Treatments Diet: Regular Activity: Weightbearing as tolerated to left leg. Skin/Wound/Dressing Care Report to your healthcare provider any signs of infection, such as:: chills, fever, increased pain, unusual drainage and unusual redness Dressing: May shower. If dressing becomes saturated inside, remove and replace with clean, dry gauze. No soaking incisions. Do not apply any creams, lotions, or ointments to incisions. Visit Report/Discharge Packet Stand Alone Forms: Patient Portal/API, Surgery Discharge Discharge Data Primary Care Provider: Ghazal Jones VTE Deep Vein Thrombosis/Pulmonary Embolism Present on Admission: No
[2024-04-11 08:00] VITALS: BP 137/64; PULSE 78; RESP 18; TEMP 36; O2SAT 95
[2024-04-11 08:32] LABS: Hematocrit 22.7 % (36-46); Hemoglobin 7.7 g/dL (12.0-16.0); Mean Corpuscular HGB Conc 34.1 % (30-36); Mean Corpuscular Hemoglobin 35.3 PG (26-34); Mean Corpuscular Volume 103.5 fL (80-100); Platelet Count 129 X10^3/uL (150-400); Red Blood Cell Count 2.19 X10^6/uL (4.0-5.2); Red Cell Distribution Width 13.9 % (11.6-14.8); White Blood Cell Count 5.2 X10^3/uL (4.5-11.0)
[2024-04-11] MEDS: ATORVASTATIN 20 MG TABLET 40 MG PO (08:32)
[2024-04-11] MEDS: CHOLECALCIFEROL (VITAMIN D3) 1,000 UNIT TABLET 1000 UNIT PO (08:33)
[2024-04-11] MEDS: THIAMINE 100 MG TABLET PO (08:33)
[2024-04-11] MEDS: ENOXAPARIN 30 MG/0.3 ML SYRINGE SUBCUT (08:36)
[2024-04-11] MEDS: DOCUSATE 100 MG CAPSULE PO (08:36)
--- NOTE | 2024-04-11 08:44 | CM.DPC ---
DCP Cont. Reviewed EMR and team rounds for status updates. Pt has been medically cleared for d/c to [facility] today. [facility] will transport, pt will have 1-tank of O2 for the transport, set at 1-L. [facility] agreed to bring us back the tank either at the end of the day today or tomorrow. D/c clinicals and P[facility] have been faxed. No further d/c needs identified at this time.
[2024-04-11] MEDS: FOLIC ACID 1 MG TABLET PO (08:50)
[2024-04-11] MEDS: MULTIVITAMIN 1 TABLET 1 TAB PO ×2 (08:51)
[2024-04-11] MEDS: SODIUM CHLORIDE 0.9% FLUSH 10 ML IV (08:52)
[2024-04-11] MEDS: CALCIUM CARBONATE 500 MG TAB 1000 MG PO (08:59)
--- NOTE | 2024-04-11 09:05 | OT.IP.TRT ---
Current Diagnoses Age-related osteoporosis with current pathological fracture, left femur, initial encounter for fracture (04/07/24) Fracture of unspecified part of neck of left femur, initial encounter for closed fracture (04/07/24) Displaced intertrochanteric fracture of left femur, initial encounter for closed fracture (04/07/24) Other specified postprocedural states (04/07/24) Surgery Performed Operation Date: 04/08/24 09:00 Actual Procedures p fixation left hip fracture, nail/aiyana(Left) - Jammie Ramos MD Occupational Therapy Treatment Note M2 OT-IP Current Condition Start: 04/10/24 09:18 Freq: Status: Active Protocol: Document 04/10/24 09:18 [facility] (Rec: 04/10/24 09:27 [facility] [id number]) Occupational Therapy Current Condition Current Condition Evaluation Date 04/10/24 Treatment Diagnosis S/P fixation left hip fx,nail/ aiyana Diagnosis Onset Date 04/07/24 M3 OT- IP Subjective and Pain Start: 04/10/24 09:18 Freq: Status: Active Protocol: Document 04/11/24 09:17 [facility] (Rec: 04/11/24 09:20 [facility] [id number]) OT- Subjective Occupational Therapy Visit Type Type Treatment Note Visit Start Time 09:05 Visit Stop Time 09:14 Occupational Therapy Visit Comments Patient Comments Pt states does not have any clothing in order to get dressed prior to leaving for SNF. Patient/Caregiver Goals TO get better. OT Pain Assessment Pain When Pain Assessed At Rest Pain Present Pain Present Denied Pain M4 OT- IP ADL's Start: 04/10/24 09:18 Freq: Status: Active Protocol: Document 04/10/24 09:18 [facility] (Rec: 04/10/24 09:27 [facility] [id number]) OT [id number] General Evaluation Self-Feeding Ability Independent OT ADL-Grooming Comments OT Grooming Comments NOt performed. OT ADL-Oral Care Comments Oral Care Comments NOt performed. OT ADL-Dressing General Eval Lower Body Dressing Ability Maximum Assistance Areas Needing Assistance Socks OT ADL-Toileting General Evaluation Toileting Ability Total Assistance Comments OT Toileting Comments [place] Cruz in place. OT ADL-Bathing Comments OT Bathing Comments Sponge bath more appropriate until able to mobilize more. Pt will benefit from a shower chair/tub bench at home. M5 OT- IP IADL's Start: 04/10/24 09:18 Freq: Status: Active Protocol: Document 04/10/24 09:18 [facility] (Rec: 04/10/24 09:27 [facility] [id number]) OT-Instrumental Activities of Daily Living Deficits IADL Deficits Identified Deficits Home Safety Awareness Awareness of Need for Assistance at Home Good Awareness Ability to Problem Solve Emergency Able to Problem Solve Situations Medication Management Medication Management Comments Pt did prior. Money Management Money Management Comments Pt did prior. Meal Preparation Meal Preparation Comments Pt will need assist. 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 Driving Driving Comments Pt states does not drive. M6 OT- IP Functional Cognition Start: 04/10/24 09:18 Freq: Status: Active Protocol: Document 04/10/24 09:18 [facility] (Rec: 04/10/24 09:27 [facility] [id number]) Cognitive Factors Limiting Selfcare Function Cognitive Ability Level of Alertness Alert Patient Orientation Name,Age,Birthday,Month,Date, Year,Day of Week,Place, Situation Attention Span Ability Capable of Focused Attention, Capable of Sustained Attention Ability to Follow Commands Able to Follow One Step Commands Cognitive Comments Cognitive Assessment Comments Pt able to follow commands for mobility needs. Pt is very pleasant and motivated to get better. OT- Vision and Hearing OT- Hearing Assessment OT- Hearing Assessment WFL OT- Vision Assessment Visual Acuity Glasses All The Time Visual Attentiveness WFL Occular Pursuits WFL M7 OT- IP Mobility and Balance Start: 04/10/24 09:18 Freq: Status: Active Protocol: Document 04/11/24 09:17 [facility] (Rec: 04/11/24 09:20 [facility] [id number]) OT-Transfer Assessment Comments Mobility Comments Went over LE exercises and that pt states has been able to do while in bed. M8 OT- IP Objective Assessments Start: 04/10/24 09:18 Freq: Status: Active Protocol: Document 04/10/24 09:18 [facility] (Rec: 04/10/24 09:27 [facility] [id number]) OT Gross Range of Motion Upper Extremity Range of Motion Assessment Within Functional Limits OT Strength Comments Strength Comments Grossly WFL for her age. M9 OT- IP Assessment and Plan Start: 04/10/24 09:18 Freq: Status: Active Protocol: Document 04/11/24 09:17 [facility] (Rec: 04/11/24 09:20 [facility] [id number]) OT Summary Assessment and Plan Potential Rehabilitation Potential Good Analytic Complexity at Evaluation Moderate Summary OT Impairments Pain,Strength,Balance, Functional Mobility,Grooming, Dressing,Toileting,Bathing, Toilet Transfers,Shower Transfers,Activity Tolerance Progress Towards Goals Progressing Toward Goals Assessment Summary Pt going to skilled rehab today. Went at length with pt of what to except and questions to ask. Able to go over BUE exercises with pt in the bed. Pt not wanting to get up at this time and just waiting to go. Goals Self-Feeding Goal Independent Grooming Goal Independent Dressing Goal Minimal Assistance Toileting Goal Standby Assistance Bathing Goal Minimal Assistance Toilet Transfer Goal Standby Assistance Shower Transfer Goal Standby Assistance Days to Meet Goals 20 Treatment Plan OT Treatment Plan ADL Training,Functional Mobility,Patient/Family Education,Discharge Planning Other Treatment Recommendations and Next LB dressing equipment Treatment Focus education Discharge Recommendations OT Discharge Recommendations SNF Rehab Transportation Needs at Discharge Wheelchair/Cabulance
[2024-04-11] MEDS: OXYCODONE IR 5 MG TABLET PO ×2 (09:20)
--- NOTE | 2024-04-11 09:44 | PC.NURSE ---
Addendum entered by Rosio Mcfarlane R.N. 04/11/24 11:46: Pt transportation via [facility] here Pt discharging w/ borrowed O2 tank for transport,. with understanding via daughter and pt it shall be returned Pt dsg to left hip changed. Voided after F/C D/C'd this a.m. 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 Pt D/C in stable status. Original Note: Pt doing well this morning. Preparing for D/C to [facility] D/C'd intact w/o incidence. Aquacell dsg to left hip w/ small old shadow drainage Dela Cruz D/C this am. Med w/ Oxy for discomfort w/ good relief. Awaiting for transportation Call light w/in reach, pt calls appropriately for needs.
== END 2024-04-11 11:40 | DRG 480 ==
LOC: ED 20:16 → AC 20:58
PROVIDERS: Family Medicine; Hospitalist; Orthopaedic Surgery Foot and Ankle Surgery; Admitting Provider Internal Medicine; Emergency Provider Student in an Organized Health Care Education/Training Program; Family Provider Internal Medicine; PCP Family Medicine; Referring Provider Student in an Organized Health Care Education/Training Program; Visit Provider Internal Medicine
PROC: 0QS706Z Reposition Left Upper Femur with Intramedullary Internal Fixation Device, Open Approach (ICD-10-PCS; CPT 27245; principal; 2024-04-08 09:00)
DX: M80.052A Age-related osteoporosis with current pathological fracture, left femur, initial encounter for fracture (principal); J96.01 Acute respiratory failure with hypoxia; E87.1 Hypo-osmolality and hyponatremia; N17.9 Acute kidney failure, unspecified; D62 Acute posthemorrhagic anemia; J44.1 Chronic obstructive pulmonary disease with (acute) exacerbation; I10 Essential (primary) hypertension; E78.5 Hyperlipidemia, unspecified; I73.9 Peripheral vascular disease, unspecified; J43.9 Emphysema, unspecified; D53.9 Nutritional anemia, unspecified; E86.9 Volume depletion, unspecified; F17.210 Nicotine dependence, cigarettes, uncomplicated; Z66 Do not resuscitate
CPT/HCPCS: 36415; 70450; 71045; 72125; 73502; 76000; 80048; 80053; 82607; 82746; 85025; 85027; 87635; 94640; 96374; 96375; 96376; 97110; 97162; 97165; 97530; 97535; 99284; C1713; J0690; J1100; J1171; J1650; J2270; J2405; J2704; J3010; J7613

== ENCOUNTER → 2024-05-24 11:50 | Outpatient (CLI) | payer MEDICARE, OTHER, SELFPAY ==
[2024-04-07 21:40] VITALS: BMI 18.7
[2024-05-24 13:09] LABS: Add Manual Diff / Slide Review NO; Basophils Absolute Auto 0 /uL (0-100); Basophils Percent Auto 0.5 % (0-2); Eosinophils Absolute Auto 100 /uL (0-450); Eosinophils Percent Auto 2.4 % (2-4); Hematocrit 32.5 % (36-46); Hemoglobin 10.8 g/dL (12.0-16.0); Lymphocytes Absolute Auto 1200 /uL (1100-4500); Lymphocytes Percent Auto 21.6 % (25-40); Mean Corpuscular HGB Conc 33.4 % (30-36); Mean Corpuscular Hemoglobin 31.3 PG (26-34); Mean Corpuscular Volume 93.8 fL (80-100); Monocytes Absolute Auto 500 /uL (0-900); Neutrophils Absolute Auto 3500 /uL (1500-7000); Neutrophils Percent Auto 66.5 % (50-75); Platelet Count 256 X10^3/uL (150-400); Red Blood Cell Count 3.46 X10^6/uL (4.0-5.2); Red Cell Distribution Width 15.4 % (11.6-14.8); White Blood Cell Count 5.3 X10^3/uL (4.5-11.0)
[2024-05-24 13:28] LABS: Alanine Aminotransferase 14 IU/L (<35); Albumin 3.9 g/dL (3.5-5.0); Albumin Globulin Ratio 1.3 (1.0-2.8); Alkaline Phosphatase 85 U/L (38-126); Aspartate Aminotransferase 24 IU/L (14-36); BUN Creatinine Ratio 24.4 (6-22); Bilirubin Total 0.7 mg/dL (0.2-1.3); Blood Urea Nitrogen 20 mg/dL (7-17); Calcium 8.7 mg/dL (8.4-10.2); Carbon Dioxide 30 mmol/L (22-32); Chloride 100 mmol/L (98-107); Estimated Glomerular Filt Rate > 60 mL/min (>60); Globulin 3.1 g/dL (1.7-4.1); Glucose 93 mg/dL (80-110); HEMOLYSIS < 15 (0-50); Hemoglobin A1C% w Est Avg Glu 4.9 % (4.0-6.0); Potassium 3.8 mmol/L (3.4-5.1); Sodium 137 mmol/L (137-145)
[2024-05-24 13:37] LABS: NT-proBNP (BNP-Adult 18+) 1230 pg/mL (<450)
[2024-05-24 15:11] LABS: Vitamin D 25 Hydroxy (D3) 54.3 ng/mL (30.0-100.0)
== END ==
PROVIDERS: Family Provider Internal Medicine; PCP Family Medicine; Referring Provider Family Medicine; Visit Provider Family Medicine
DX: I10 Essential (primary) hypertension (principal); R73.09 Other abnormal glucose; Z13.1 Encounter for screening for diabetes mellitus; M81.0 Age-related osteoporosis without current pathological fracture; E78.5 Hyperlipidemia, unspecified; I73.9 Peripheral vascular disease, unspecified; I74.09 Other arterial embolism and thrombosis of abdominal aorta; M79.89 Other specified soft tissue disorders
CPT/HCPCS: 36415; 80053; 82306; 83036; 83880; 85025

== ENCOUNTER 2024-10-21 11:19 | Emergency (ER) | payer MEDICARE, OTHER, SELFPAY ==
[2024-09-28 05:51] VITALS: BMI 17.3
[2024-10-21] VITALS (40 sets, daily range): BP systolic 132–192; BP diastolic 64–100; PULSE 59–90; RESP 16–47; TEMP 36.6–36.7; O2SAT 93–100; BMI 19.3
--- NOTE | 2024-10-21 11:38 | EKG_ITS ---
[facility] [address] [place] [address] Test Date: 2024-10-21 Pat Name: Taniya Johnson Department: Room: Gender: Female Box Puller: KATHLEEN : [id number] Requested By: Order Number: [id number] Reading MD: Jose Elias Betts Measurements Intervals [place] Rate: 87 P: FL: QRS: 4 QRSD: 72 T: 70 QT: 400 QTc: 481 Interpretive Statements Atrial fibrillation Nonspecific ST and T wave abnormality Electronically Signed On 10-22-2024 13:52:22 PDT by Jose Elias Betts
[2024-10-21 11:39] LABS: Add Manual Diff / Slide Review NO; Hematocrit 30.8 % (36-46); Hemoglobin 10.5 g/dL (12.0-16.0); Lymphocytes Absolute Auto 800 /uL (1100-4500); Mean Corpuscular HGB Conc 34.0 % (30-36); Mean Corpuscular Hemoglobin 33.8 PG (26-34); Mean Corpuscular Volume 99.3 fL (80-100); Platelet Count 214 X10^3/uL (150-400)
--- NOTE | 2024-10-21 11:39 | ED_ITS ---
HPI - GI Bleed <Candice Tucker, DO - Last Filed: 10/22/24 07:06> General Chief complaint: GI Bleed Stated complaint: Chest pain, SOB, dark stools Time Seen by Provider: 10/21/24 11:36 Source: EMS Mode of arrival: EMS History of Present Illness HPI Narrative: Patient is a 83-year-old female history of atrial fibrillation on Eliquis, systolic heart failure with EF of 25-30%, hypertension, COPD peripheral arterial disease tobacco dependence presenting to day with variety of complaints. He was admitted in the hospital with acute CHF September 27 through October 04. During that admission she was started on Eliquis for AFib today she presents with black tarry stool over the last couple of days. She reports that she has had at least 2 black bloody bowel movements. She also feels like she does not have control of her bowels and that stool just comes. She has no leg weakness numbness or tingling. She does have a very large hematoma on her back. Family reports that this has been there for almost a month. And progressively has gotten worse. They deny any fall or trauma. She was actually seen evaluated here June 13 for the same. She is short of breath she had 2 breathing treatments at home in 1 with EMS. She denies any kind of chest pain or palpitations. She has no leg weakness numbness or tingling. She has no abdominal pain. She has not passed out. Related Data Home Medications ?Medication ?Instructions ?Recorded ?Confirmed multivitamin 1 tab PO DAILY 05/30/1809/14 cholecalciferol (vitamin D3) 25 25 mcg PO DAILY 09/29/24 mcg (1,000 unit) capsule calcium 600 mg (as 1 cap PO DAILY 04/02/2409/14 carbonate)-vitamin D3 10 mcg (400 unit) capsule Previous Rx's ?Medication ?Instructions ?Recorded acetaminophen 500 mg tablet 500 mg PO Q4H PRN pain #60 tabs 11/25/18 (Tylenol Extra Strength) Disabled Parking #1 ea 05/29/21 albuterol sulfate 90 mcg/actuation 2 puff inhalation Q 6H PRN 04/11/24 aerosol inhaler shortness of breath or wheez ing #8.5 grams aspirin 81 mg capsule 81 mg PO BID #60 caps folic acid 1 mg tablet 1 mg PO DAILY #30 tabs 04/11 multivitamin with folic acid 400 1 tab PO DAILY #30 ta bs 04/11/24 mcg tablet (Tab-A-Amber) ibandronate 150 mg tablet 150 mg PO QMONTH #14 tabs oxycodone 5 mg tablet 5 mg PO Q3H PRN Pain, Modera te 05/24/24 (4-6) #15 tabs atorvastatin 40 mg tablet 40 mg PO DAILY #90 tabs 11/08 fluticasone fur. 200 mcg-umeclid 1 inh inhalation YUMIKO Y #60 ea 08/23/24 62.5 mcg-vilant 25 mcg inhalat.powder (Trelegy Ellipta) amiodarone 200 mg tablet 100 mg (1/2 x 200 mg) PO MICHELLE LY #30 10/04/24 tabs apixaban 5 mg tablet (Eliquis) 2.5 mg (1/2 x 5 mg) PO BID #60 tabs 10/04/24 hydralazine 25 mg tablet 25 mg PO TID #90 tabs magnesium oxide 400 mg (241.3 mg 400 mg PO BID #60 tab s 10/04/24 magnesium) tablet metoprolol succinate 25 mg 25 mg PO DAILY #30 tabs tablet,extended release 24 hr spironolactone 25 mg tablet 12.5 mg (1/2 x 25 mg) PO D AILY #30 10/04/24 tabs hydrocodone 5 mg-acetaminophen 325 1 tab PO Q4-6H PRN pain #20 tabs 10/13/24 mg tablet Allergies Allergy/AdvReac Type Severity Reaction Status Date / Time No Known Drug Allergies Allergy Verified 10/13/24 10:07 Patient History <Candice Tucker, - Last Filed: 10/22/24 07:06> Medical History Acute renal failure (05/09/18) Anemia 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) Centrilobular emphysema (05/09/18) Closed intertrochanteric fracture of left hip Diverticulosis of large intestine without hemorrhage (04/22/15) Dyspnea Former smoker (04/20/16) Hyperlipidemia (04/20/16) Hypertension (06/06/17) Lumbar spondylosis Osteoporosis (04/22/15) Other dietary vitamin B12 deficiency anemia (02/17/15) Peripheral arterial disease (02/13/16) Vascular claudication (04/20/16) Surgical History Hx of sinus surgery S/P lumbar fusion (12/02/17) Status post bilateral cataract extraction Family History Mother CAD (coronary artery disease) Social History marital status: number of children: 4 household members: spouse lives independently: Yes caregiver/support person: Yes (Daughters) housing: house pets and animals: No education level: high school occupational status: other 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 sohail/latter day: None travel history: recent leisure activities: sports and other Tobacco: How many years used: 40 Smokeless tobacco user: other quit status: quit date established second hand exposure: No alcohol intake: current substance use type: does not use during the past year weight has: decreased > 10 lbs (Early satiety) alcohol intake frequency: 0-2 drinks per day Alcohol type: wine Exam <Candice Tucker DO - Last Filed: 10/22/24 07:06> Initial Vital Signs Initial Vital Signs: Vital Signs Pulse Rate 90 10/21/24 11:23 Blood Pressure 135/90 10/21/24 11:23 Pulse Oximetry 97 10/21/24 11:23 Oxygen Delivery Method Nasal Cannula 10/21/24 11:23 Oxygen Flow Rate 2 10/21/24 11:23 GENERAL: Alert chronically ill 83-year-old female HEENT: Head atraumatic,EOMI, pupils reactive, face symmetric, moist mucous membranes CARDIOVASCULAR: Regular rate and rhythm without murmurs, rubs or gallops. RESPIRATORY: Decreased breath sounds on the left side some pursed lip breathing mild tachypnea no conversational dyspnea ABDOMEN: Soft, nontender. Normoactive bowel sounds all 4 quadrants. No guarding or rebound. RECTAL: Hemoccult-positive, no hemorrhoids, nontender black stool : No CVA tenderness EXTREMITIES: Normal range of motion, no clubbing or edema. Neurovascularly intact NEUROLOGICAL: Alert and oriented x4. Tag Writer strength equal bilaterally able to lift both legs without any significant weakness SKIN: Large hematoma noted across all of lumbar area it does drain down and go in her left leg and left buttock <Gurdeep Amin DO - Last Filed: 10/22/24 00:14> Initial Vital Signs Initial Vital Signs: Vital Signs Pulse Rate 90 10/21/24 11:23 Blood Pressure 135/90 10/21/24 11:23 Pulse Oximetry 97 10/21/24 11:23 Oxygen Delivery Method Nasal Cannula 10/21/24 11:23 Oxygen Flow Rate 2 10/21/24 11:23 Course <Candice Tucker DO - Last Filed: 10/22/24 07:06> Orders Ordered: Discontinued Medications Prothrombin Complex Concent ( Human) 1,000 unit/Miscellaneous 40 mls @ 300 mls/hr IV NOW ONE Stop: 10/21/24 19:00 Last Infusion: 10/21/24 19:30 Dose: Infused Documented By: Admin: 10/21/24 19:17 Dose: 300 mls/hr Documented By: REYMUNDO Ondansetron HCl (Ondansetron 4 Mg/2 Ml Inj) 4 mg IV NOW PRN PRN Reason: Nausea And Vomiting Last Admin: 10/21/24 12:27 Dose: 4 mg Documented By: DOMINIK Ondansetron HCl (Ondansetron 4 Mg Odt) 4 mg PO NOW PRN PRN Reason: Nausea And Vomiting Pantoprazole Sodium (Pantoprazole 40 Mg Vial) 80 mg IV NOW ONE Stop: 10/21/24 11:59 Last Admin: 10/21/24 12:28 Dose: 80 mg Documented By: DOMINIK Vital Signs Vital signs: Vital Signs - 8 hr 10/21/24 23:30 10/21/24 23:30 Pulse Rate 59 L Respiratory Rate 24 Blood Pressure 161/68 H Pulse Oximetry 97 <Gurdeep Amin DO - Last Filed: 10/22/24 00:14> Orders Ordered: Discontinued Medications Prothrombin Complex Concent ( Human) 1,000 unit/Miscellaneous 40 mls @ 300 mls/hr IV NOW ONE Stop: 10/21/24 19:00 Last Infusion: 10/21/24 19:30 Dose: Infused Documented By: Admin: 10/21/24 19:17 Dose: 300 mls/hr Documented By: REYMUNDO Ondansetron HCl (Ondansetron 4 Mg/2 Ml Inj) 4 mg IV NOW PRN PRN Reason: Nausea And Vomiting Last Admin: 10/21/24 12:27 Dose: 4 mg Documented By: DOMINIK Ondansetron HCl (Ondansetron 4 Mg Odt) 4 mg PO NOW PRN PRN Reason: Nausea And Vomiting Pantoprazole Sodium (Pantoprazole 40 Mg Vial) 80 mg IV NOW ONE Stop: 10/21/24 11:59 Last Admin: 10/21/24 12:28 Dose: 80 mg Documented By: DOMINIK Vital Signs Vital signs: Vital Signs - 8 hr 10/21/24 23:30 10/21/24 23:30 Pulse Rate 59 L Respiratory Rate 24 Blood Pressure 161/68 H Pulse Oximetry 97 MDM - GI Bleed <Candice Tucker DO - Last Filed: 10/22/24 07:06> Lab Data 10/21/24 18:54 10/21/24 11:23 Labs: Lab Results 10/21/24 10/21/24 10/21/24 Range/Units 11:22 11:23 14:12 WBC 6.5 (4.5-11.0) X10^3/uL RBC 3.10 L (4.0-5.2) X10^6/uL Hgb 10.5 L 9.2 L (12.0-16.0) g/dL Hct 30.8 L 26.8 L (36-46) % MCV 99.3 (80-100) fL MCH 33.8 (26-34) PG MCHC 34.0 (30-36) % RDW 15.4 H (11.6-14.8) % Plt Count 214 (150-400) X10^3/uL Neut % (Auto) 77.5 H (50-75) % Lymph % (Auto) 12.8 L (25-40) % [place] % (Auto) 8.2 (3-14) % Eos % (Auto) 0.9 L (2-4) % Baso % (Auto) 0.6 (0-2) % Neut # (Auto) 5000 (5666-3439) /uL Lymph # (Auto) 800 L (3165-0286) /uL [place] # (Auto) 500 (0-900) /uL Eos # (Auto) 100 (0-450) /uL Baso # (Auto) 0 (0-100) /uL PT 15.3 H (9.4-12.5) SECONDS INR 1.4 H (0.9-1.3) APTT 31 (25.1-36.5) SECONDS Sodium 135 L (137-145) mmol/L Potassium 4.4 (3.4-5.1) mmol/L Chloride 100 (98-107) mmol/L Carbon Dioxide 28 (22-32) mmol/L BUN 16 (7-17) mg/dL Creatinine 0.86 (0.52-1.04) mg/dL Estimated GFR > 60 (>60) mL/min BUN/Creatinine Ratio 18.6 (6-22) Glucose 109 H (70-99) mg/dL Lactate 1.4 (0.7-2.1) mmol/L Calcium 8.8 (8.4-10.2) mg/dL Total Bilirubin 1.4 H (0.2-1.3) mg/dL AST 26 (14-36) IU/L ALT 18 (<35) IU/L Alkaline Phosphatase 85 (38-126) U/L Total Creatine Kinase 49 (30-135) U/L Troponin I 0.018 (0.01-0.034) ng/mL NT-Pro-B Natriuret Pep 5980 H (<450) pg/mL Total Protein 6.8 (6.3-8.2) g/dL Albumin 4.0 (3.5-5.0) g/dL Globulin 2.8 (1.7-4.1) g/dL Albumin/Globulin Ratio 1.4 (1.0-2.8) Blood Type AB Positive Antibody Screen Negative Crossmatch See Detail 10/21/24 10/21/24 Range/Units 14:50 18:54 WBC (4.5-11.0) X10^3/uL RBC (4.0-5.2) X10^6/uL Hgb 8.5 L (12.0-16.0) g/dL Hct 25.3 L (36-46) % MCV (80-100) fL MCH (26-34) PG MCHC (30-36) % RDW (11.6-14.8) % Plt Count (150-400) X10^3/uL Neut % (Auto) (50-75) % Lymph % (Auto) (25-40) % [place] % (Auto) (3-14) % Eos % (Auto) (2-4) % Baso % (Auto) (0-2) % Neut # (Auto) (4144-4947) /uL Lymph # (Auto) (6268-1721) /uL [place]cock # (Auto) (0-900) /uL Eos # (Auto) (0-450) /uL Baso # (Auto) (0-100) /uL PT (9.4-12.5) SECONDS INR (0.9-1.3) APTT (25.1-36.5) SECONDS Sodium (137-145) mmol/L Potassium (3.4-5.1) mmol/L Chloride (98-107) mmol/L Carbon Dioxide (22-32) mmol/L BUN (7-17) mg/dL Creatinine (0.52-1.04) mg/dL Estimated GFR (>60) mL/min BUN/Creatinine Ratio (6-22) Glucose (70-99) mg/dL Lactate (0.7-2.1) mmol/L Calcium (8.4-10.2) mg/dL Total Bilirubin (0.2-1.3) mg/dL AST (14-36) IU/L ALT (<35) IU/L Alkaline Phosphatase (38-126) U/L Total Creatine Kinase (30-135) U/L Troponin I 0.021 (0.01-0.034) ng/mL NT-Pro-B Natriuret Pep (<450) pg/mL Total Protein (6.3-8.2) g/dL Albumin (3.5-5.0) g/dL Globulin (1.7-4.1) g/dL Albumin/Globulin Ratio (1.0-2.8) Blood Type Antibody Screen Crossmatch Point of Care Testing Stool Occult Blood Positive Urine Dip Bedside Urine Glucose Negative Bedside Urine Bilirubin - Negative Bedside Urine Ketone - Negative Urine Specific [place] 1.005 Bedside Urine Occult Blood +/- Bedside Urine pH 7 Bedside Urine Protein +/- 15 Bedside Urine Urobilinogen - Negative Bedside Urine Nitrite - Negative Bedside Urine Leukocytes - Negative Esterase Imaging Data CT scan - abdomen/pelvis: Radiologist's Impression: PROCEDURE: CT ANGIO ABD/PEL GI BLEED INDICATIONS: GI Bleed TECHNIQUE: Precontrast imaging was performed. After the administration of intravenous contrast, 2.5 mm thick sections acquired from the diaphragm to the symphysis. Imaging was acquired in the arterial and delayed venous phases. 10 mm maximum-intensity projection (MIP) reformats were then acquired. For radiation dose reduction, the following was used: automated exposure control. COMPARISON: [facility], CT, CT ABDOMEN PELVIS W CON, 10/07/2022, 11:45. [facility], CT, CT ANGIO CHEST PE PROTOCOL, 09/27/2024, 15:01. FINDINGS: Image Quality: Diagnostic. Abdominal aorta: No aortic aneurysm or evidence of acute aortic syndrome. Dense atherosclerotic calcification can be seen. Mesenteric arteries: There is minimal narrowing seen involving the origin of the celiac axis. Dense calcification can be seen involving the origin of the SMA, with 50- 60% narrowing. The more distal SMA appears normal. The GISEL is within normal limits. Renal arteries: The origin of the right renal artery appears normal. The right renal artery demonstrates an early bifurcation. There is dense calcification seen involving the origin of the left renal artery, with greater than 90% narrowing. OTHER: Lower Chest: There is a trace right-sided pleural effusion. Liver: No solid mass. Gallbladder: No radiopaque gallstones or wall thickening. Biliary ducts: No biliary dilation. Pancreas: No ductal dilation. Spleen: Size is within normal limits. Adrenal Glands: No adrenal nodules. Kidneys and Ureters: No hydronephrosis. No solid mass. No complex renal cystic lesion which requires follow up. The left kidney is atrophic. Stomach and Bowel: Normal colonic caliber, without significant wall thickening. Colonic diverticulosis is seen, without findings of active diverticulitis. Many of the diverticula demonstrate hyperdense contents. On the arterial phase imaging, no findings of active bleeding can be seen. No dilated loops of small bowel are seen. Peritoneum: No abnormal intraperitoneal fluid. No free air. Ventral Wall: No hernia. Abdominal Nodes: No retroperitoneal or mesenteric adenopathy by size criteria. Vessels: Aorta and inferior vena cava are normal in size. PELVIS: Pelvic Organs: No adnexal masses are seen on either side. Bladder: Unremarkable. Pelvic Nodes: No enlarged lymph nodes. Miscellaneous: No inguinal hernias are seen. Bones: No aggressive osseous abnormality. There is a remote T12 vertebral plana. There is stable anterior wedge deformity of L1 Lumbosacral fixation hardware can be seen. Left proximal femur hardware is seen. IMPRESSION: No source of active bleeding is seen. There is 50-60% narrowing seen involving the origin of the SMA. 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 There is a small right-sided pleural effusion, which is improved compared to the prior. The previously seen small left-sided pleural effusion has resolved. Additional findings: Remote T12 vertebral plana Stable L1 anterior wedge deformity Diverticulosis, without active diverticulitis Lumbosacral fixation hardware Left proximal femur hardware Dictated by: Zi Hemphill M.D. on 10/21/2024 at 11:48 ECG Data Attestation: I personally reviewed and interpreted this ECG as follows: Interpretation: Atrial fibrillation rate [address] changes MDM Narrative Medical decision making narrative: [facility] CC: Rectal bleeding Complicating co-morbidities: AFib on Eliquis COPD CHF EF 25-30 Data collected from: Patient family Medical records reviewed: Recent admission Differential considered: Upper GI bleed lower GI bleed, ischemia Exam documented above, pertinent findings include: Guaiac-positive, abdomen soft nontender, slightly decreased breath sounds on left versus right but no respiratory distress no pitting edema Lab Test results independently reviewed as above. Pertinent findings: 10/01/2024, hemoglobin 12 0.2/35.3, today hemoglobin 10 0.5/30.8 with repeat 9.2/26.8 No leukocytosis platelets 214 PT is 15.3 INR is 1.4 Electrolytes within normal limits BUN 16 creatinine 0.8 Troponin negative 0.018-->0.021 BNP 5980 previously 14,100 Lactate 1.4 Independently reviewed EKG as above Atrial fibrillation Imaging studies independently reviewed: CT angio no active bleeding, 50-60% narrowing of the SMA high-grade stenosis of the left renal artery Chest x-ray shows mild cardiomegaly improved appearance of Consultations: Dr. Abdullahi oncall surgery in ED to see and evaluate, recommend transfer to higher level of care Dr. Walker, hospitalist outpatient receptionist, recommends higher level of care 1729 Dr. Valadez, GI at [facility] updated patient's symptoms test results request Kcentra if possible, happy to consult Treatments: Kcentra was recommended by GI doctor however INR is 1.4 and not available blood pressure remained stable Protonix 80 Re-evaluations: Patient is a remains hemodynamically stable awake alert oriented abdomen is soft and nontender Discussion: Patient is a 83-year-old female history of multiple comorbidities on Eliquis presenting today with black tarry stool. She is guaiac positive CT does not show any active bleeding. Hemoglobin is down trending. There is complication blood Fridge at hospital awaiting new blood shipment. Meanwhile evaluated by hospitalist and surgery who both recommend higher level of care regardless of blood status and feel like she may need further intervention. Sign out to Dr. Suarez, for further transfer <Gurdeep Amin, - Last Filed: 10/22/24 00:14> Lab Data Labs: Lab Results 10/21/24 10/21/24 10/21/24 Range/Units 11:22 11:23 14:12 WBC 6.5 (4.5-11.0) X10^3/uL RBC 3.10 L (4.0-5.2) X10^6/uL Hgb 10.5 L 9.2 L (12.0-16.0) g/dL Hct 30.8 L 26.8 L (36-46) % MCV 99.3 (80-100) fL MCH 33.8 (26-34) PG MCHC 34.0 (30-36) % RDW 15.4 H (11.6-14.8) % Plt Count 214 (150-400) X10^3/uL Neut % (Auto) 77.5 H (50-75) % Lymph % (Auto) 12.8 L (25-40) % [place] % (Auto) 8.2 (3-14) % Eos % (Auto) 0.9 L (2-4) % Baso % (Auto) 0.6 (0-2) % Neut # (Auto) 5000 (8288-6688) /uL Lymph # (Auto) 800 L (6209-4684) /uL [place] # (Auto) 500 (0-900) /uL Eos # (Auto) 100 (0-450) /uL Baso # (Auto) 0 (0-100) /uL PT 15.3 H (9.4-12.5) SECONDS INR 1.4 H (0.9-1.3) APTT 31 (25.1-36.5) SECONDS Sodium 135 L (137-145) mmol/L Potassium 4.4 (3.4-5.1) mmol/L Chloride 100 (98-107) mmol/L Carbon Dioxide 28 (22-32) mmol/L BUN 16 (7-17) mg/dL Creatinine 0.86 (0.52-1.04) mg/dL Estimated GFR > 60 (>60) mL/min BUN/Creatinine Ratio 18.6 (6-22) Glucose 109 H (70-99) mg/dL Lactate 1.4 (0.7-2.1) mmol/L Calcium 8.8 (8.4-10.2) mg/dL Total Bilirubin 1.4 H (0.2-1.3) mg/dL AST 26 (14-36) IU/L ALT 18 (<35) IU/L Alkaline Phosphatase 85 (38-126) U/L Total Creatine Kinase 49 (30-135) U/L Troponin I 0.018 (0.01-0.034) ng/mL NT-Pro-B Natriuret Pep 5980 H (<450) pg/mL Total Protein 6.8 (6.3-8.2) g/dL Albumin 4.0 (3.5-5.0) g/dL Globulin 2.8 (1.7-4.1) g/dL Albumin/Globulin Ratio 1.4 (1.0-2.8) Blood Type AB Positive Antibody Screen Negative Crossmatch See Detail 10/21/24 10/21/24 Range/Units 14:50 18:54 WBC (4.5-11.0) X10^3/uL RBC (4.0-5.2) X10^6/uL Hgb 8.5 L (12.0-16.0) g/dL Hct 25.3 L (36-46) % MCV (80-100) fL MCH (26-34) PG MCHC (30-36) % RDW (11.6-14.8) % Plt Count (150-400) X10^3/uL Neut % (Auto) (50-75) % Lymph % (Auto) (25-40) % [place] % (Auto) (3-14) % Eos % (Auto) (2-4) % Baso % (Auto) (0-2) % Neut # (Auto) (1830-8207) /uL Lymph # (Auto) (9994-1212) /uL [place]cock # (Auto) (0-900) /uL Eos # (Auto) (0-450) /uL Baso # (Auto) (0-100) /uL PT (9.4-12.5) SECONDS INR (0.9-1.3) APTT (25.1-36.5) SECONDS Sodium (137-145) mmol/L Potassium (3.4-5.1) mmol/L Chloride (98-107) mmol/L Carbon Dioxide (22-32) mmol/L BUN (7-17) mg/dL Creatinine (0.52-1.04) mg/dL Estimated GFR (>60) mL/min BUN/Creatinine Ratio (6-22) Glucose (70-99) mg/dL Lactate (0.7-2.1) mmol/L Calcium (8.4-10.2) mg/dL Total Bilirubin (0.2-1.3) mg/dL AST (14-36) IU/L ALT (<35) IU/L Alkaline Phosphatase (38-126) U/L Total Creatine Kinase (30-135) U/L Troponin I 0.021 (0.01-0.034) ng/mL NT-Pro-B Natriuret Pep (<450) pg/mL Total Protein (6.3-8.2) g/dL Albumin (3.5-5.0) g/dL Globulin (1.7-4.1) g/dL Albumin/Globulin Ratio (1.0-2.8) Blood Type Antibody Screen Crossmatch Point of Care Testing Stool Occult Blood Positive Urine Dip Bedside Urine Glucose Negative Bedside Urine Bilirubin - Negative Bedside Urine Ketone - Negative Urine Specific [place] 1.005 Bedside Urine Occult Blood +/- Bedside Urine pH 7 Bedside Urine Protein +/- 15 Bedside Urine Urobilinogen - Negative Bedside Urine Nitrite - Negative Bedside Urine Leukocytes - Negative Esterase [facility] Narrative Medical decision making narrative: [facility] CC: Rectal bleeding Complicating co-morbidities: AFib on Eliquis COPD CHF EF 25-30 Data collected from: Patient family Medical records reviewed: Recent admission Differential considered: Upper GI bleed lower GI bleed, ischemia Exam documented above, pertinent findings include: Guaiac-positive, abdomen soft nontender, slightly decreased breath sounds on left versus right but no respiratory distress no pitting edema Lab Test results independently reviewed as above. Pertinent findings: 10/01/2024, hemoglobin 12 0.2/35.3, today hemoglobin 10 0.5/30.8 with repeat 9.2/26.8 No leukocytosis platelets 214 PT is 15.3 INR is 1.4 Electrolytes within normal limits BUN 16 creatinine 0.8 Troponin negative 0.018-->0.021 BNP 5980 previously 14,100 Lactate 1.4 Independently reviewed EKG as above Atrial fibrillation Imaging studies independently reviewed: CT angio no active bleeding, 50-60% narrowing of the SMA high-grade stenosis of the left renal artery Chest x-ray shows mild cardiomegaly improved appearance of Consultations: Dr. Bradly kendall surgery in ED to see and evaluate, recommend transfer to higher level of care Dr. Walker, hospitalist outpatient receptionist, recommends higher level of care 1729 Dr. Valadez, GI at [facility] updated patient's symptoms test results request Kcentra if possible, happy to consult Treatments: Kcentra was recommended by GI doctor however INR is 1.4 and not available blood pressure remained stable Protonix 80 Re-evaluations: Patient is a remains hemodynamically stable awake alert oriented abdomen is soft and nontender Discussion: Patient is a 83-year-old female history of multiple comorbidities on Eliquis presenting today with black tarry stool. She is guaiac positive CT does not show any active bleeding. Hemoglobin is down trending. There is complication blood Fridge at hospital awaiting new blood shipment. Meanwhile evaluated by hospitalist and surgery who both recommend higher level of care regardless of blood status and feel like she may need further intervention. Sign out to Dr. Suarez, for further transfer Patient was signed out to me by Dr. Vasquez, patient pending transfer to [facility] for intervention by GI given lower GI bleed in the setting of anticoagulation. Upon repeat CBC, patient initially presented with hemoglobin 10.5, down trending from 9.2-8.5, Kcentra has already been ordered, given down trending hemoglobin we will order 1 unit PRBC 2025: Received a call back from hospitalist at [facility], they reviewed the patient's information they state that they do not feel comfortable accepting the patient given lack of IR therefore we will reach out to surrounding hospitals for transfer 2154: Discussed case with Nadya yeh hospitalist Dr. Herndon, accepts the transfer 0000: Transport here at bedside, patient re-evaluated, vital signs stable patient is safe for transport out to outside hospital Critical Care Time <Candice Tucker, DO - Last Filed: 10/22/24 07:06> Critical Care Time Critical Care Time: Yes Total Critical Care Time: 35 Attestation: The high probability of a clinically significant, sudden or life threatening deterioration of the [cardiovascular] system(s) required my full and direct attention, intervention and personal management. The aggregate critical care time was 35 minutes. This time is in addition to time spent performing reported procedures but includes the following: [x] Data Review and interpretation [x] Patient assessment and monitoring of vital signs [x] Documentation [x] Medication orders and management Discharge Plan Departure Patient Disposition: [facility] Clinical Impression: GI (gastrointestinal bleed), Anemia Prescriptions: No Action (DME) Disabled Parking See Rx Instructions .ROUTE .MEDSUPPLY Qty: 1 0RF Rx Instructions: Patient qualifies for disabled parking as per the attached form. atorvastatin 40 mg tablet 40 mg PO DAILY Qty: 90 2RF multivitamin tablet 1 tab PO DAILY ibandronate 150 mg tablet 150 mg PO QMONTH Qty: 14 3RF oxycodone 5 mg tablet 5 mg PO Q3H PRN (Reason: Pain, Moderate (4-6)) Qty: 15 0RF cholecalciferol (vitamin D3) 25 mcg (1,000 unit) capsule 25 mcg PO DAILY calcium carbonate-vitamin D3 600 mg-10 mcg (400 unit) capsule 1 cap PO DAILY folic acid 1 mg Tablet 1 mg PO DAILY Qty: 30 0RF multivitamin with folic acid [Tab-A-Amber] 400 mcg Tablet 1 tab PO DAILY Qty: 30 0RF albuterol sulfate 90 mcg/actuation HFA aerosol inhaler 2 puff inhalation Q6H PRN (Reason: shortness of breath or wheezing) Qty: 8.5 0RF aspirin 81 mg capsule 81 mg PO BID Qty: 60 0RF amiodarone 200 mg Tablet 100 mg PO DAILY Qty: 30 1RF hydralazine 25 mg Tablet 25 mg PO TID Qty: 90 1RF magnesium oxide 400 mg (241.3 mg magnesium) Tablet 400 mg PO BID Qty: 60 1RF Eliquis 5 mg Tablet 2.5 mg PO BID Qty: 60 1RF spironolactone 25 mg Tablet 12.5 mg PO DAILY Qty: 30 1RF metoprolol succinate 25 mg Tablet Extended Release 24 Hr 25 mg PO DAILY Qty: 30 1RF acetaminophen [Tylenol Extra Strength] 500 mg tablet 500 mg PO Q4H PRN (Reason: pain) Qty: 60 0RF Rx Instructions: take 1 tablet by mouth every four hours as needed for pain hydrocodone-acetaminophen 5-325 mg tablet 1 tab PO Q4-6H PRN (Reason: pain) Qty: 20 0RF Trelegy Ellipta 200-62.5-25 mcg blister with device 1 inh inhalation DAILY Qty: 60 6RF Referrals: Ghazal Jones DO [Primary Care Provider, Family Practice]
[2024-10-21 11:41] LABS: INR 1.4 (0.9-1.3); Prothrombin Time 15.3 SECONDS (9.4-12.5)
[2024-10-21 11:43] LABS: PTT Partial Thromboplastin Tim 31 SECONDS (25.1-36.5)
[2024-10-21 11:45] LABS: Alanine Aminotransferase 18 IU/L (<35); Albumin 4.0 g/dL (3.5-5.0); Albumin Globulin Ratio 1.4 (1.0-2.8); Alkaline Phosphatase 85 U/L (38-126); Blood Urea Nitrogen 16 mg/dL (7-17); Calcium 8.8 mg/dL (8.4-10.2); Carbon Dioxide 28 mmol/L (22-32); Chloride 100 mmol/L (98-107); Creatine Kinase 49 U/L (30-135); Estimated Glomerular Filt Rate > 60 mL/min (>60); Globulin 2.8 g/dL (1.7-4.1); Glucose 109 mg/dL (70-99); HEMOLYSIS < 15 (0-50); Potassium 4.4 mmol/L (3.4-5.1); Sodium 135 mmol/L (137-145); Total Protein 6.8 g/dL (6.3-8.2)
[2024-10-21 11:56] LABS: NT-proBNP (BNP-Adult 18+) 5980 pg/mL (<450); Troponin I 0.018 ng/mL (0.01-0.034)
--- NOTE | 2024-10-21 11:58 | DI.CT.S_ITS ---
PROCEDURE: CT ANGIO ABD/PEL GI BLEED INDICATIONS: GI Bleed TECHNIQUE: Precontrast imaging was performed. After the administration of intravenous contrast, 2.5 mm thick sections acquired from the diaphragm to the symphysis. Imaging was acquired in the arterial and delayed venous phases. 10 mm maximum-intensity projection (MIP) reformats were then acquired. For radiation dose reduction, the following was used: automated exposure control. COMPARISON: [facility], CT, CT ABDOMEN PELVIS W CON, 10/07/2022, 11:45. [facility], CT, CT ANGIO CHEST PE PROTOCOL, 09/27/2024, 15:01. FINDINGS: Image Quality: Diagnostic. Abdominal aorta: No aortic aneurysm or evidence of acute aortic syndrome. Dense atherosclerotic calcification can be seen. Mesenteric arteries: There is minimal narrowing seen involving the origin of the celiac axis. Dense calcification can be seen involving the origin of the SMA, with 50- 60% narrowing. The more distal SMA appears normal. The GISEL is within normal limits. Renal arteries: The origin of the right renal artery appears normal. The right renal artery demonstrates an early bifurcation. There is dense calcification seen involving the origin of the left renal artery, with greater than 90% narrowing. OTHER: Lower Chest: There is a trace right-sided pleural effusion. Liver: No solid mass. Gallbladder: No radiopaque gallstones or wall thickening. Biliary ducts: No biliary dilation. Pancreas: No ductal dilation. Spleen: Size is within normal limits. Adrenal Glands: No adrenal nodules. Kidneys and Ureters: No hydronephrosis. No solid mass. No complex renal cystic lesion which requires follow up. The left kidney is atrophic. Stomach and Bowel: Normal colonic caliber, without significant wall thickening. Colonic diverticulosis is seen, without findings of active diverticulitis. Many of the diverticula demonstrate hyperdense contents. On the arterial phase imaging, no findings of active bleeding can be seen. No dilated loops of small bowel are seen. Peritoneum: No abnormal intraperitoneal fluid. No free air. Ventral Wall: No hernia. Abdominal Nodes: No retroperitoneal or mesenteric adenopathy by size criteria. Vessels: Aorta and inferior vena cava are normal in size. PELVIS: Pelvic Organs: No adnexal masses are seen on either side. Bladder: Unremarkable. Pelvic Nodes: No enlarged lymph nodes. Miscellaneous: No inguinal hernias are seen. Bones: No aggressive osseous abnormality. There is a remote T12 vertebral plana. There is stable anterior wedge deformity of L1 Lumbosacral fixation hardware can be seen. Left proximal femur hardware is seen. IMPRESSION: No source of active bleeding is seen. There is 50-60% narrowing seen involving the origin of the SMA. 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 There is a small right-sided pleural effusion, which is improved compared to the prior. The previously seen small left-sided pleural effusion has resolved. Additional findings: Remote T12 vertebral plana Stable L1 anterior wedge deformity Diverticulosis, without active diverticulitis Lumbosacral fixation hardware Left proximal femur hardware Dictated by: Zi Hemphill M.D. on 10/21/2024 at 11:48 Approved by: Zi Hempihll M.D. on 10/21/2024 at 11:56
--- NOTE | 2024-10-21 11:58 | DI.RAD.S_ITS ---
PROCEDURE: XR CHEST 1V INDICATIONS: short of breath TECHNIQUE: One view of the chest was acquired. COMPARISON: [facility], CT, CT ANGIO ABD/PEL GI BLEED, 10/21/2024, 12:07. [facility], CT, CT ANGIO CHEST PE PROTOCOL, 09/27/2024, 15:01. [facility], CR, XR CHEST 1V, 09/27/2024, 13:39. [facility], CR, XR CHEST 1V, 09/30/2024, 8:05. FINDINGS: Surgical changes and devices: None. Lungs and pleura: No focal infiltrates are seen. There is improving interstitial prominence. The please see seen small pleural effusions are no longer seen. Mediastinum: The cardiac contours are mildly enlarged. The aorta demonstrates calcification and tortuosity. Bones and chest wall: Age-appropriate bony degenerative changes are seen. No suspicious bony lesions. Overlying soft tissues appear unremarkable. IMPRESSION: Mild cardiomegaly. Improved appearance of the lungs. Dictated by: Zi Hemphill M.D. on 10/21/2024 at 11:47 Approved by: Zi Hemphill M.D. on 10/21/2024 at 11:48
[2024-10-21 12:08] LABS: Lactate (Lactic Acid) 1.4 mmol/L (0.7-2.1)
[2024-10-21] MEDS: ONDANSETRON 4 MG/2 ML INJ IV (12:27)
[2024-10-21] MEDS: PANTOPRAZOLE 40 MG VIAL 80 MG IV (12:28)
[2024-10-21 14:20] LABS: Hematocrit 26.8 % (36-46); Hemoglobin 9.2 g/dL (12.0-16.0)
[2024-10-21 15:18] LABS: Troponin I 0.021 ng/mL (0.01-0.034)
--- NOTE | 2024-10-21 16:49 | PC.NURSE ---
pt reports uses 2L O2 at home when needed for COPD, pt on now per pt request/for comfort
--- NOTE | 2024-10-21 17:00 | PC.NURSE ---
Clinical Operations Consultant for exam of back and buttocks with Dr Walker and Surgeon Doyle
--- NOTE | 2024-10-21 17:18 | PM.HP.IH.1 ---
History of Present Illness History of Present Illness Date Patient Seen: 10/21/24 Time Patient Seen: 06:45 Date of Onset of Symptoms: 10/17/24 Chief complaint: Chest pain, SOB, dark stools Narrative: Patient is a 83-year-old white female who presents to the emergency room with black tarry stools x4 days. Patient denies any vertigo or syncope but she states she is short of breath and did have some chest pain which will radiate back to her back but it is gone at this time. Family members also state that she has got a hematoma on her gluteal area and left thigh they can not quantify or qualify but it appears to be greater than 1 week. They deny any recent falls. Patient recently was discharged from the hospital admission 09/27/2024 for an exacerbation of CHF. Patient's hemoglobin has trended down about a g and a half since her last hospitalization. WBC of 6.5 hemoglobin is 9.2 hematocrit is 26.8 platelets are 214,000 PT is 15.3 INR of 1.4 PTT is 31. Sodium is 135 potassium 4.[address] scan which was viewed is noted in the have severe vascular disease no active bleeding is noted on arterial phase but the patient has quite a bit of scattered from a Villasenor rods in her back and also has a ORIF of the left hip severe diverticular disease no acute inflammatory changes. Patient is on aspirin and Eliquis for recent AFib in September of this year patient's ejection fraction on see for CHF is 25%. Allergies: NKDA Medications: Tylenol, albuterol inhaler, amiodarone, Eliquis, aspirin, atorvastatin, calcium carbonate, vitamin D3, FOLIC ACID, HYDRALAZINE, HYDROCODONE, IBANDRONATE, MAG-OX, METOPROLOL, VITAMINS, OXYCODONE, SPIRONOLACTONE PAST MEDICAL HISTORY: CORRECTIVE LENSES, DENTURES, 4 PARA 4 AB 0, COPD, HYPERTENSION, HYPERLIPIDEMIA, AFIB ON ASPIRIN AND ELIQUIS, CONGESTIVE HEART FAILURE WITH EJECTION FRACTION OF 25%, ATHEROSCLEROTIC VASCULAR DISEASE WITH SEVERE PERIPHERAL VASCULAR DISEASE WITH HISTORY OF STENTS, CLAUDICATION OF 5200 FT, HISTORY OF LEFT HIP FRACTURE AND MARCH OF THIS YEAR. PATIENT AND FAMILY DENY ANY OTHER HEART LUNGS DIGESTIVE MUSCULOSKELETAL NEUROLOGICAL SEIZURE DISORDER PSYCHIATRIC PROBLEMS RISKS OF INFECTIOUS DISEASES HIV OR AIDS. PAST SURGICAL HISTORY: RIGHT AND LEFT LEG STENTS, RIGHT AND LEFT CATARACTS, LEFT HIP ORIF MARCH OF 2024, SINUS SURGERY, BACK SURGERY WITH VILLASENOR RODS, COLONOSCOPY DONE GREATER THAN 20 YEARS AGO NEGATIVE. SOCIAL HISTORY. HISTORY OF TOBACCO USE LESS THAN 1/2-1 PACK PER DAY TIMES 70 YEAR STOPPED 2 WEEKS AGO, 1 WINE A DAY, DENIES ANY RECREATIONAL DRUG USAGE VITALS: TEMPERATURE IS 98.0? PULSE 65 RESPIRATIONS 20 BP IS 165/72 SAO2 IS 99% ON ROOM AIR PATIENT IS 5 FT 2 IN AND 107 LB HEAD IS NORMOCEPHALIC EYES PERRLA EOMI IS INTACT NARES ARE CLEAR SEPTUM MIDLINE EACS AND PINNAE ARE UNREMARKABLE OROPHARYNGEAL CAVITY DENTURES ARE IN PLACE HEART REGULAR RATE AND RHYTHM WITH A 2/6 SYSTOLIC EJECTION MURMUR LUNGS ARE DIMINISHED IN THE BASES POOR INSPIRATORY AND EXPIRATORY EFFORT POOR CHEST WALL MOTION NOTED. ABDOMEN IS SOFT NONDISTENDED NO MASSES OR PERITONEAL SIGNS ARE ELICITED MUSCULOSKELETAL POOR MUSCLE TONE AND STRENGTH EQUAL BILATERALLY. PATIENT WAS ROLLED WITH THE ASSISTANCE OF NURSE IS NOTED TO HAVE CONSIDERABLE ECCHYMOSIS OVER THE RIGHT AND LEFT GLUTEAL AREA AND THE LEFT FEMUR APPEARS TO BE GREATER THAN 1-WEEK-OLD. IMPRESSION: UPPER GI BLEED WITH BLACK MELANOTIC STOOLS X4 DAYS ON ASPIRIN AND ELIQUIS WITHOUT ANY VERTIGO OR SYNCOPE APPROXIMATELY 1-2 UNITS OF BLOOD LOSS SINCE LAST HOSPITALIZATION HOSPITALIST BLOOD REFRIGERATOR HAS MALFUNCTION WITH LOSS OF ALL BLOOD NO BLOOD IS AVAILABLE IN THE HOSPITAL THIS TIME TRYING TO BRING BLOOD TO THE HOSPITAL FROM [facility] COPD HISTORY OF TOBACCO USE LESS THAN 1/2-1 PACK PER DAY TIMES 70 YEARS STOPPED 2 WEEKS AGO AFIB ON ELIQUIS AND ASPIRIN CHF WITH EJECTION FRACTION OF 25% PROBNP 5980 ATHEROSCLEROTIC VASCULAR DISEASE PERIPHERAL VASCULAR DISEASE WITH HISTORY OF PERIPHERAL VASCULAR STENTING PATIENT HAS SOME SEVERE STENOSES OF THE DISTAL VASCULAR TREE INCLUDING TO NEAR OCCLUDED STENTS IN THE COMMON ILIAC TENSION HYPERLIPIDEMIA AND COLON DISCUSSED WITH HOSPITALIST THE FINDINGS NEED FOR POSSIBLE TRANSFUSIONS CONTINUES TO DROP HER BLOOD BUT SHE HAS NO BLOOD HERE AT THE HOSPITAL THE BLOOD REFRIGERATOR HAS MALFUNCTION DISCUSSED WITH THE PATIENT'S COEXISTING MEDICAL PROBLEMS THAT THEY TRANSFER THE PATIENT TO A TERTIARY CENTER FOR CONTROL OF MULTIPLE MEDICAL PROBLEMS IN THE UPPER GI BLEED PATIENT WILL BE PLACED ON H2 BLOCKERS AND ASKED IT IS CARAFATE. ALL QUESTIONS WERE ANSWERED TO PATIENT AND FAMILY'S SATISFACTION. PATIENT IS DNR PER PATIENT'S REQUEST. 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) Former smoker (04/20/16) Peripheral arterial disease (02/13/16) Osteoporosis (04/22/15) Diverticulosis of large intestine without hemorrhage (04/22/15) Other dietary vitamin B12 deficiency anemia (02/17/15) Surgical History S/P lumbar fusion (12/02/17) Status post bilateral cataract extraction Hx of sinus surgery Family History Mother CAD (coronary artery disease) Social History marital status: number of children: 4 household members: spouse lives independently: Yes caregiver/support person: Yes (Daughters) housing: house pets and animals: No education level: high school occupational status: other 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 sohail/jewish: None travel history: recent leisure activities: sports and other Tobacco: How many years used: 40 Smokeless tobacco user: other quit status: quit date established second hand exposure: No alcohol intake: current substance use type: does not use during the past year weight has: decreased > 10 lbs (Early satiety) Meds Home Medications and Allergies Home Medications ?Medication ?Instructions ?Recorded ?Confirmed ?Type multivitamin 1 tab PO DAILY 05/30/18 09/29/24 History acetaminophen 500 mg tablet 500 mg PO Q4H PRN pain #60 tabs 11/25/18 09/29/24 Rx (Tylenol Extra Strength) Disabled Parking #1 ea 05/29/21 09/29/24 Rx cholecalciferol (vitamin D3) 25 25 mcg PO DAILY 06/25/21 09/29/24 History mcg (1,000 unit) capsule calcium 600 mg (as 1 cap PO DAILY 04/02/24 09/29/24 History carbonate)-vitamin D3 10 mcg (400 unit) capsule albuterol sulfate 90 mcg/actuation 2 puff inhalation Q6H PRN 04/11/24 09/29/24 Rx aerosol inhaler shortness of breath or wheezing #8.5 grams aspirin 81 mg capsule 81 mg PO BID #60 caps 04/11/24 09/29/24 Rx folic acid 1 mg tablet 1 mg PO DAILY #30 tabs 04/11/24 09/29/24 Rx multivitamin with folic acid 400 1 tab PO DAILY #30 tabs 04/11/24 09/29/24 Rx mcg tablet (Tab-A-Amber) ibandronate 150 mg tablet 150 mg PO QMONTH #14 tabs 05/24/24 09/29/24 Rx oxycodone 5 mg tablet 5 mg PO Q3H PRN Pain, Moderate 05/24/24 09/29/24 Rx (4-6) #15 tabs atorvastatin 40 mg tablet 40 mg PO DAILY #90 tabs 06/22/24 09/29/24 Rx fluticasone fur. 200 mcg-umeclid 1 inh inhalation DAILY #60 ea 08/23/24 09/29/24 Rx 62.5 mcg-vilant 25 mcg inhalat.powder (Trelegy Ellipta) amiodarone 200 mg tablet 100 mg (1/2 x 200 mg) PO DAILY #30 10/04/24 Rx tabs apixaban 5 mg tablet (Eliquis) 2.5 mg (1/2 x 5 mg) PO BID #60 tabs 10/04/24 Rx hydralazine 25 mg tablet 25 mg PO TID #90 tabs 10/04/24 Rx magnesium oxide 400 mg (241.3 mg 400 mg PO BID #60 tabs 10/04/24 Rx magnesium) tablet metoprolol succinate 25 mg 25 mg PO DAILY #30 tabs 10/04/24 Rx tablet,extended release 24 hr spironolactone 25 mg tablet 12.5 mg (1/2 x 25 mg) PO DAILY #30 10/04/24 Rx tabs hydrocodone 5 mg-acetaminophen 325 1 tab PO Q4-6H PRN pain #20 tabs 10/13/24 Rx mg tablet Allergies Allergy/AdvReac Type Severity Reaction Status Date / Time No Known Drug Allergies Allergy Verified 10/13/24 10:07 Exam Vital Signs (past 8 hours): - 10/21/24 11:23 10/21/24 11:23 10/21/24 11:25 Temperature 98.0 F Pulse Rate 90 87 Respiratory Rate 28 H Blood Pressure 135/90 135/90 Pulse Oximetry 97 98 Oxygen Delivery Method Nasal Cannula Room Air Oxygen Flow Rate 2 10/21/24 11:30 10/21/24 11:30 10/21/24 12:00 Temperature Pulse Rate 82 77 Respiratory Rate 24 20 Blood Pressure 192/95 H Pulse Oximetry 97 100 Oxygen Delivery Method Nasal Cannula Nasal Cannula Oxygen Flow Rate 2 2 10/21/24 12:00 10/21/24 12:30 10/21/24 13:00 Temperature Pulse Rate 78 66 Respiratory Rate 16 Blood Pressure 179/81 H Pulse Oximetry 99 98 Oxygen Delivery Method Nasal Cannula Nasal Cannula Oxygen Flow Rate 2 2 10/21/24 13:30 10/21/24 14:01 10/21/24 14:29 Temperature Pulse Rate 66 73 65 Respiratory Rate 47 H 20 Blood Pressure Pulse Oximetry 96 94 99 Oxygen Delivery Method Nasal Cannula Nasal Cannula Nasal Cannula Oxygen Flow Rate 2 2 2 10/21/24 14:29 10/21/24 14:30 10/21/24 14:31 Temperature Pulse Rate 66 65 Respiratory Rate 26 H 20 Blood Pressure 163/76 H Pulse Oximetry 99 99 Oxygen Delivery Method Nasal Cannula Nasal Cannula Oxygen Flow Rate 2 2 10/21/24 14:31 10/21/24 15:00 10/21/24 15:00 Temperature Pulse Rate 66 Respiratory Rate 24 Blood Pressure 165/72 H 162/70 H Pulse Oximetry 97 Oxygen Delivery Method Nasal Cannula Oxygen Flow Rate 1 10/21/24 15:30 10/21/24 15:30 10/21/24 16:00 Temperature Pulse Rate 67 64 Respiratory Rate Blood Pressure 168/76 H Pulse Oximetry 95 97 Oxygen Delivery Method Nasal Cannula Nasal Cannula Oxygen Flow Rate 1 1 10/21/24 16:00 10/21/24 16:30 10/21/24 16:30 Temperature Pulse Rate 67 Respiratory Rate 24 Blood Pressure 159/71 H 156/76 H Pulse Oximetry 96 Oxygen Delivery Method Nasal Cannula Oxygen Flow Rate 1 Oxygen Delivery Method Nasal Cannula Oxygen Flow Rate 1 Objective Labs 10/21/24 14:12 10/21/24 11:23 Labs: Laboratory Results - last 24 hr 10/21/24 10/21/24 10/21/24 11:22 11:23 14:12 WBC 6.5 RBC 3.10 L Hgb 10.5 L 9.2 L Hct 30.8 L 26.8 L MCV 99.3 MCH 33.8 MCHC 34.0 RDW 15.4 H Plt Count 214 Neut % (Auto) 77.5 H Lymph % (Auto) 12.8 L Schley % (Auto) 8.2 Eos % (Auto) 0.9 L Baso % (Auto) 0.6 Neut # (Auto) 5000 Lymph # (Auto) 800 L Schley # (Auto) 500 Eos # (Auto) 100 Baso # (Auto) 0 PT 15.3 H INR 1.4 H APTT 31 Sodium 135 L Potassium 4.4 Chloride 100 Carbon Dioxide 28 BUN 16 Creatinine 0.86 Estimated GFR > 60 BUN/Creatinine Ratio 18.6 Glucose 109 H Lactate 1.4 Calcium 8.8 Total Bilirubin 1.4 H AST 26 ALT 18 Alkaline Phosphatase 85 Total Creatine Kinase 49 Troponin I 0.018 NT-Pro-B Natriuret Pep 5980 H Total Protein 6.8 Albumin 4.0 Globulin 2.8 Albumin/Globulin Ratio 1.4 Blood Type AB Positive Antibody Screen Negative 10/21/24 14:50 WBC RBC Hgb Hct MCV MCH MCHC RDW Plt Count Neut % (Auto) Lymph % (Auto) Schley % (Auto) Eos % (Auto) Baso % (Auto) Neut # (Auto) Lymph # (Auto) Schley # (Auto) Eos # (Auto) Baso # (Auto) PT INR APTT Sodium Potassium Chloride Carbon Dioxide BUN Creatinine Estimated GFR BUN/Creatinine Ratio Glucose Lactate Calcium Total Bilirubin AST ALT Alkaline Phosphatase Total Creatine Kinase Troponin I 0.021 NT-Pro-B Natriuret Pep Total Protein Albumin Globulin Albumin/Globulin Ratio Blood Type Antibody Screen Assessment & Plan Time-Based Coding :: [TOTAL MINUTES] spent with patient and on the chart (including review of chart, obtaining history, exam, reviewing outside data, placing orders, documenting exam and treatment plan, and counseling patient) on [DATE]. PROFEE Occupational Therapy Technician Document charge(s): Yes
--- NOTE | 2024-10-21 17:25 | PM.CN.IH.1 ---
History of Present Illness Consult details Date Patient Seen: 10/21/24 Time Patient Seen: 16:43 Chief complaint: Chest pain, SOB, dark stools Reason for consult: GI bleeding Narrative: 83-year-old woman under primary care of Dr. Ghazal Jones presented with chest pain, shortness and breath and dark stools. She states over the last 2-3 days she has had 2 black tarry bowel movements and this morning developed intense chest pressure radiating to her upper back. This resolved spontaneously, she denies further chest pain, and further denies nausea, vomiting, abdominal pain or bright red bleeding. She has a large bruise over her lower back and buttocks that developed in the last week without fall or injury. She reports taking intermittent ibuprofen for back and hip pain. She has a history of atrial fibrillation and is on chronic anticoagulation with Eliquis 2.5mg BID started about 3 weeks ago during a recent hospitalization, also on chronic aspirin 81mg daily for vascular disease, known systolic congestive heart failure with ejection fraction 25-30%, peripheral arterial disease status post stenting, COPD, hypertension, and history of chronic tobacco use, quitting about 2 weeks ago after a lifelong history of heavy use. Her last colonoscopy was over 20 years ago and unremarkable. She can only walk short distances in her home, limited due to shortness of breath and hip pain. She is seen in the emergency department with General surgery, interviewed jointly and with family members present. Of note, the hospitalist refrigerator malfunctioned and there is currently no blood in house, and only limited supplies are anticipated to be available in the near future and only upon request , with a likely need to procure additional blood if needed from outside sources. Meds Home Medications and Allergies Home Medications ?Medication ?Instructions ?Recorded ?Confirmed ?Type multivitamin 1 tab PO DAILY 05/30/18 09/29/24 History acetaminophen 500 mg tablet 500 mg PO Q4H PRN pain #60 tabs 11/25/18 09/29/24 Rx (Tylenol Extra Strength) Disabled Parking #1 ea 05/29/21 09/29/24 Rx cholecalciferol (vitamin D3) 25 25 mcg PO DAILY 06/25/21 09/29/24 History mcg (1,000 unit) capsule calcium 600 mg (as 1 cap PO DAILY 04/02/24 09/29/24 History carbonate)-vitamin D3 10 mcg (400 unit) capsule albuterol sulfate 90 mcg/actuation 2 puff inhalation Q6H PRN 04/11/24 09/29/24 Rx aerosol inhaler shortness of breath or wheezing #8.5 grams aspirin 81 mg capsule 81 mg PO BID #60 caps 04/11/24 09/29/24 Rx folic acid 1 mg tablet 1 mg PO DAILY #30 tabs 04/11/24 09/29/24 Rx multivitamin with folic acid 400 1 tab PO DAILY #30 tabs 04/11/24 09/29/24 Rx mcg tablet (Tab-A-Amber) ibandronate 150 mg tablet 150 mg PO QMONTH #14 tabs 05/24/24 09/29/24 Rx oxycodone 5 mg tablet 5 mg PO Q3H PRN Pain, Moderate 05/24/24 09/29/24 Rx (4-6) #15 tabs atorvastatin 40 mg tablet 40 mg PO DAILY #90 tabs 06/22/24 09/29/24 Rx fluticasone fur. 200 mcg-umeclid 1 inh inhalation DAILY #60 ea 08/23/24 09/29/24 Rx 62.5 mcg-vilant 25 mcg inhalat.powder (Trelegy Ellipta) amiodarone 200 mg tablet 100 mg (1/2 x 200 mg) PO DAILY #30 10/04/24 Rx tabs apixaban 5 mg tablet (Eliquis) 2.5 mg (1/2 x 5 mg) PO BID #60 tabs 10/04/24 Rx hydralazine 25 mg tablet 25 mg PO TID #90 tabs 10/04/24 Rx magnesium oxide 400 mg (241.3 mg 400 mg PO BID #60 tabs 10/04/24 Rx magnesium) tablet metoprolol succinate 25 mg 25 mg PO DAILY #30 tabs 10/04/24 Rx tablet,extended release 24 hr spironolactone 25 mg tablet 12.5 mg (1/2 x 25 mg) PO DAILY #30 10/04/24 Rx tabs hydrocodone 5 mg-acetaminophen 325 1 tab PO Q4-6H PRN pain #20 tabs 10/13/24 Rx mg tablet Allergies Allergy/AdvReac Type Severity Reaction Status Date / Time No Known Drug Allergies Allergy Verified 10/13/24 10:07 Review of Systems Review of Systems ROS: Yes All systems reviewed with the patient and are negative except as otherwise documented Exam Vital Signs (past 8 hours): - 10/21/24 11:23 10/21/24 11:23 10/21/24 11:25 Temperature 98.0 F Pulse Rate 90 87 Respiratory Rate 28 H Blood Pressure 135/90 135/90 Pulse Oximetry 97 98 Oxygen Delivery Method Nasal Cannula Room Air Oxygen Flow Rate 2 10/21/24 11:30 10/21/24 11:30 10/21/24 12:00 Temperature Pulse Rate 82 77 Respiratory Rate 24 20 Blood Pressure 192/95 H Pulse Oximetry 97 100 Oxygen Delivery Method Nasal Cannula Nasal Cannula Oxygen Flow Rate 2 2 10/21/24 12:00 10/21/24 12:30 10/21/24 13:00 Temperature Pulse Rate 78 66 Respiratory Rate 16 Blood Pressure 179/81 H Pulse Oximetry 99 98 Oxygen Delivery Method Nasal Cannula Nasal Cannula Oxygen Flow Rate 2 2 10/21/24 13:30 10/21/24 14:01 10/21/24 14:29 Temperature Pulse Rate 66 73 65 Respiratory Rate 47 H 20 Blood Pressure Pulse Oximetry 96 94 99 Oxygen Delivery Method Nasal Cannula Nasal Cannula Nasal Cannula Oxygen Flow Rate 2 2 2 10/21/24 14:29 10/21/24 14:30 10/21/24 14:31 Temperature Pulse Rate 66 65 Respiratory Rate 26 H 20 Blood Pressure 163/76 H Pulse Oximetry 99 99 Oxygen Delivery Method Nasal Cannula Nasal Cannula Oxygen Flow Rate 2 2 10/21/24 14:31 10/21/24 15:00 10/21/24 15:00 Temperature Pulse Rate 66 Respiratory Rate 24 Blood Pressure 165/72 H 162/70 H Pulse Oximetry 97 Oxygen Delivery Method Nasal Cannula Oxygen Flow Rate 1 10/21/24 15:30 10/21/24 15:30 10/21/24 16:00 Temperature Pulse Rate 67 64 Respiratory Rate Blood Pressure 168/76 H Pulse Oximetry 95 97 Oxygen Delivery Method Nasal Cannula Nasal Cannula Oxygen Flow Rate 1 1 10/21/24 16:00 10/21/24 16:30 10/21/24 16:30 Temperature Pulse Rate 67 Respiratory Rate 24 Blood Pressure 159/71 H 156/76 H Pulse Oximetry 96 Oxygen Delivery Method Nasal Cannula Oxygen Flow Rate 1 Oxygen Delivery Method Nasal Cannula Oxygen Flow Rate 1 Narrative Exam Narrative: GENERAL: This is a pleasant, interactive thin female patient in no apparent distress. HEAD: Atraumatic. Normocephalic. No temporal or scalp tenderness. EYES: Pupils equal round and reactive. Extraocular motions intact. No scleral icterus. No injection or drainage. ENT: Mucous membranes pink and moist. NECK: Supple, nontender, no meningeal signs. CARDIOVASCULAR: Regular rate and rhythm with grade 1-2/6 JENNIFER RESPIRATORY: Clear to auscultation. GASTROINTESTINAL: Abdomen soft, non-tender, nondistended. EXTREMITIES: No clubbing, cyanosis, or edema. BACK: Nontender without deformity or crepitance. No flank tenderness. she has a large deep purple ecchymosis extending from her right hip in a bandlike pattern across her buttocks onto her left hip and greater trochanteric region where there is some yellowing of the ecchymosis. NEUROLOGIC: Alert, oriented, speech fluent, full upper and lower motor strength, no focal deficits evident. DERMATOLOGIC: No rashes or skin lesions. Objective Imaging Echocardiogram 10/01/2024:: Radiologist's impression: The ejection fraction is estimated to be 25-30%. There is moderate to severe global hypokinesis of the left ventricle. Comparison is made with the echocardiogram of 09/28/2024, no significant change. Abdomen/pelvis CTA 10/21/2024:: Radiologist's impression: No source of active bleeding is seen. There is 50-60% narrowing seen involving the origin of the SMA. 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 There is a small right-sided pleural effusion, which is improved compared to the prior. The previously seen small left-sided pleural effusion has resolved. Additional findings: Remote T12 vertebral plana Stable L1 anterior wedge deformity Diverticulosis, without active diverticulitis Lumbosacral fixation hardware Left proximal femur hardware Chest xray 10/21/2024:: Radiologist's impression: Mild cardiomegaly. Improved appearance of the lungs. Labs 10/21/24 14:12 10/21/24 11:23 Labs: Laboratory Results - last 24 hr 10/21/24 10/21/24 10/21/24 11:22 11:23 14:12 WBC 6.5 RBC 3.10 L Hgb 10.5 L 9.2 L Hct 30.8 L 26.8 L MCV 99.3 MCH 33.8 MCHC 34.0 RDW 15.4 H Plt Count 214 Neut % (Auto) 77.5 H Lymph % (Auto) 12.8 L [place] % (Auto) 8.2 Eos % (Auto) 0.9 L Baso % (Auto) 0.6 Neut # (Auto) 5000 Lymph # (Auto) 800 L [place] # (Auto) 500 Eos # (Auto) 100 Baso # (Auto) 0 PT 15.3 H INR 1.4 H APTT 31 Sodium 135 L Potassium 4.4 Chloride 100 Carbon Dioxide 28 BUN 16 Creatinine 0.86 Estimated GFR > 60 BUN/Creatinine Ratio 18.6 Glucose 109 H Lactate 1.4 Calcium 8.8 Total Bilirubin 1.4 H AST 26 ALT 18 Alkaline Phosphatase 85 Total Creatine Kinase 49 Troponin I 0.018 NT-Pro-B Natriuret Pep 5980 H Total Protein 6.8 Albumin 4.0 Globulin 2.8 Albumin/Globulin Ratio 1.4 Blood Type AB Positive Antibody Screen Negative 10/21/24 14:50 WBC RBC Hgb Hct MCV MCH MCHC RDW Plt Count Neut % (Auto) Lymph % (Auto) [place] % (Auto) Eos % (Auto) Baso % (Auto) Neut # (Auto) Lymph # (Auto) [place] # (Auto) Eos # (Auto) Baso # (Auto) PT INR APTT Sodium Potassium Chloride Carbon Dioxide BUN Creatinine Estimated GFR BUN/Creatinine Ratio Glucose Lactate Calcium Total Bilirubin AST ALT Alkaline Phosphatase Total Creatine Kinase Troponin I 0.021 NT-Pro-B Natriuret Pep Total Protein Albumin Globulin Albumin/Globulin Ratio Blood Type Antibody Screen [facility] Medical History Acute renal failure (05/09/18) Anemia 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) Centrilobular emphysema (05/09/18) Closed intertrochanteric fracture of left hip Diverticulosis of large intestine without hemorrhage (04/22/15) Dyspnea Former smoker (04/20/16) Hyperlipidemia (04/20/16) Hypertension (06/06/17) Lumbar spondylosis Osteoporosis (04/22/15) Other dietary vitamin B12 deficiency anemia (02/17/15) Peripheral arterial disease (02/13/16) Vascular claudication (04/20/16) Surgical History Hx of sinus surgery S/P lumbar fusion (12/02/17) Status post bilateral cataract extraction Family History Mother CAD (coronary artery disease) Social History marital status: number of children: 4 household members: spouse lives independently: Yes caregiver/support person: Yes (Daughters) housing: house pets and animals: No education level: high school occupational status: other 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 sohail/hinduism: None travel history: recent leisure activities: sports and other Tobacco & Substance Use Tobacco: How many years used: 40 Smokeless tobacco user: other quit status: quit date established second hand exposure: No alcohol intake: current substance use type: does not use Diet and Exercise during the past year weight has: decreased > 10 lbs (Early satiety) Assessment & Plan Assessment & Plan narrative: 1. Acute gastrointestinal bleeding, likely upper source presenting with melena in a patient on aspirin, Eliquis and with recent ibuprofen use. She is at high-risk for peptic ulcer disease, and a particularly high risk for serious bleeding and decompensation given her ongoing antiplatelet and anticoagulation effects and underlying comorbid conditions of systolic congestive heart failure, peripheral arterial disease, and atrial fibrillation, and lack of a reliable blood supply given the above-mentioned logistical issues. I recommend she be transferred to a tertiary facility With the appropriate specialty care, including gastroenterology and interventional radiology, and adequate blood supply. 2. Acute blood loss anemia due to 1. 3. Paroxysmal atrial fibrillation, on Eliquis. 3. Chronic systolic congestive heart failure. 4. Peripheral arterial disease, on aspirin. 5. CODE STATUS: Do not resuscitate. However, the patient clearly states that she would wish all interventions necessary to treat reversible conditions otherwise. I wish to thank Dr. Vasquez for consulting the hospitalist service on this delightful patient. Time-Based Coding :: [TOTAL MINUTES] spent with patient and on the chart (including review of chart, obtaining history, exam, reviewing outside data, placing orders, documenting exam and treatment plan, and counseling patient) on [DATE]. PROFEE Charge Codes Inpatient or Observation consultation: [id number]
[2024-10-21 18:59] LABS: Hematocrit 25.3 % (36-46); Hemoglobin 8.5 g/dL (12.0-16.0)
[2024-10-21] MEDS: [UNRECOGNIZED DRUG - OTHER] IV (19:17)
[2024-10-21] MEDS: PROTHROMBIN COMPLEX CONCENTRATE 1000 UNIT IV (19:17)
--- NOTE | 2024-10-21 23:11 | PC.NURSE ---
Rayna Kraus (daughter) [phone]
== END 2024-10-21 23:45 | disposition short-term general hospital (02) ==
PROVIDERS: Emergency Medicine; Emergency Provider Student in an Organized Health Care Education/Training Program; PCP Family Medicine
DX: K92.2 Gastrointestinal hemorrhage, unspecified (principal); D64.9 Anemia, unspecified; R06.02 Shortness of breath; Z79.01 Long term (current) use of anticoagulants
CPT/HCPCS: 36415; 36430; 71045; 74174; 80053; 81003; 82272; 82550; 83605; 83880; 84484; 85014; 85018; 85025; 85610; 85730; 86850; 86900; 86901; 93005; 96374; 96375; 99285; 99291; P9016; J2405; J2470; J7168; Q9967

== ENCOUNTER → 2024-11-30 09:46 | Outpatient (CLI) | payer MEDICARE, OTHER, SELFPAY ==
[2024-09-28 05:51] VITALS: BMI 17.3
[2024-11-30 10:19] LABS: Add Manual Diff / Slide Review NO; Hematocrit 37.6 % (36-46); Hemoglobin 12.6 g/dL (12.0-16.0); Lymphocytes Absolute Auto 1200 /uL (1100-4500); Mean Corpuscular HGB Conc 33.6 % (30-36); Mean Corpuscular Hemoglobin 31.2 PG (26-34); Mean Corpuscular Volume 92.8 fL (80-100); Platelet Count 224 X10^3/uL (150-400)
[2024-11-30 10:37] LABS: INR 1.1 (0.9-1.3); Prothrombin Time 13.0 SECONDS (9.4-12.5)
[2024-11-30 10:42] LABS: Blood Urea Nitrogen 19 mg/dL (7-17); Calcium 8.9 mg/dL (8.4-10.2); Carbon Dioxide 30 mmol/L (22-32); Chloride 98 mmol/L (98-107); Estimated Glomerular Filt Rate 44 mL/min (>60); Glucose 99 mg/dL (70-99); HEMOLYSIS < 15 (0-50); Potassium 3.6 mmol/L (3.4-5.1); Sodium 136 mmol/L (137-145)
== END ==
LOC: LAB 09:50
PROVIDERS: PCP Family Medicine; Referring Provider Family Medicine
DX: I48.91 Unspecified atrial fibrillation (principal)
CPT/HCPCS: 36415; 80048; 85025; 85610

== ENCOUNTER 2025-02-10 14:12 | Emergency (ER) | payer MEDICARE, OTHER, SELFPAY ==
[2024-09-28 05:51] VITALS: BMI 17.3
[2025-02-10] VITALS (13 sets, daily range): BP systolic 153–197; BP diastolic 68–97; PULSE 59–68; RESP 17–38; TEMP 36.4–37.3; O2SAT 92–98; BMI 18.1
--- NOTE | 2025-02-10 14:28 | EKG_ITS ---
[place] [id number] [place] [id number] Test Date: 2025-02-10 Pat Name: Taniya Johnson Department: [facility] Room: Gender: Female Drafter Cartographic: JACINTA : 1940 Requested By: Order Number: [id number] Reading MD: Jose Elias Betts Measurements Intervals [place] Rate: 57 P: -7 MN: 140 QRS: 0 QRSD: 72 T: 27 QT: 472 QTc: 459 Interpretive Statements Sinus bradycardia Electronically Signed On 02-11-2025 10:41:02 PST by Jose Elias Betts
[2025-02-10 14:47] LABS: Add Manual Diff / Slide Review NO; Hematocrit 40.4 % (36-46); Hemoglobin 13.7 g/dL (12.0-16.0); Lymphocytes Absolute Auto 1200 /uL (1100-4500); Mean Corpuscular HGB Conc 33.8 % (30-36); Mean Corpuscular Hemoglobin 32.0 PG (26-34); Mean Corpuscular Volume 94.8 fL (80-100); Platelet Count 222 X10^3/uL (150-400)
--- NOTE | 2025-02-10 15:00 | DI.RAD.S_ITS ---
PROCEDURE: XR CHEST 1V INDICATIONS: n/v TECHNIQUE: One view of the chest was acquired. COMPARISON: [facility], CHARMAINE, XR CHEST 1V, 10/21/2024, 12:05. [facility], CR, XR CHEST 1V, 09/30/2024, 8:05. FINDINGS: Surgical changes and devices: None. Lungs and pleura: Lungs are clear. No pleural effusions or pneumothorax. Biapical scarring. Mediastinum: Mediastinal contours appear normal. Heart size is normal. Bones and chest wall: No suspicious bony lesions. Overlying soft tissues appear unremarkable. IMPRESSION: No acute cardiopulmonary abnormality is seen. Dictated by: Aniket Kimball M.D. on 02/10/2025 at 14:42 Approved by: Aniket Kimball M.D. on 02/10/2025 at 14:43
[2025-02-10 15:05] LABS: Alanine Aminotransferase 18 IU/L (<35); Albumin 4.7 g/dL (3.5-5.0); Albumin Globulin Ratio 1.5 (1.0-2.8); Alkaline Phosphatase 81 U/L (38-126); Blood Urea Nitrogen 20 mg/dL (7-17); Calcium 9.1 mg/dL (8.4-10.2); Carbon Dioxide 32 mmol/L (22-32); Chloride 95 mmol/L (98-107); Estimated Glomerular Filt Rate 47 mL/min (>60); Globulin 3.1 g/dL (1.7-4.1); Glucose 105 mg/dL (70-99); HEMOLYSIS < 15 (0-50); Lipase 278 U/L (23-300); Potassium 4.2 mmol/L (3.4-5.1); Sodium 137 mmol/L (137-145); Total Protein 7.8 g/dL (6.3-8.2)
[2025-02-10 15:12] LABS: Troponin I < 0.012 ng/mL (0.01-0.034)
--- NOTE | 2025-02-10 15:47 | ED.DIZZY ---
HPI - Dizziness General Chief Complaint: Abdominal Pain Stated Complaint: Hx of heart issues/Dizziness/Nausea/Hot Time Seen by Provider: 02/10/25 14:14 Mode of arrival: Wheelchair History of Present Illness HPI Narrative: Patient is a 84-year-old female with who presents with 1 week history of dizziness and nausea. History significant for atrial fibrillation status post Watchman and recent transition from Eliquis to Plavix, hypertension, hyperlipidemia. She denies any falls, no chest pain, dyspnea, diaphoresis. No fevers, chills, vomiting. Related Data Home Medications ?Medication ?Instructions ?Recorded ?Confirmed multivitamin 1 tab PO DAILY 05/30/18 12/27/24 cholecalciferol (vitamin D3) 25 25 mcg PO DAILY 06/25/21 12/27/24 mcg (1,000 unit) capsule calcium 600 mg (as 1 cap PO DAILY 04/02/24 12/27/24 carbonate)-vitamin D3 10 mcg (400 unit) capsule Previous Rx's ?Medication ?Instructions ?Recorded acetaminophen 500 mg tablet 500 mg PO Q4H PRN pain #60 tabs 11/25/18 (Tylenol Extra Strength) Disabled Parking #1 ea 05/29/21 albuterol sulfate 90 mcg/actuation 2 puff inhalation Q6H PRN 04/11/24 aerosol inhaler shortness of breath or wheezing #8.5 grams aspirin 81 mg capsule 81 mg PO BID #60 caps 04/11/24 folic acid 1 mg tablet 1 mg PO DAILY #30 tabs 04/11/24 multivitamin with folic acid 400 1 tab PO DAILY #30 tabs 04/11/24 mcg tablet (Tab-A-Amber) oxycodone 5 mg tablet 5 mg PO Q3H PRN Pain, Moderate 05/24/24 (4-6) #15 tabs atorvastatin 40 mg tablet 40 mg PO DAILY #90 tabs 06/22/24 fluticasone fur. 200 mcg-umeclid 1 inh inhalation DAILY #60 ea 08/23/24 62.5 mcg-vilant 25 mcg inhalat.powder (Trelegy Ellipta) amiodarone 200 mg tablet 100 mg (1/2 x 200 mg) PO DAILY #30 10/04/24 tabs apixaban 5 mg tablet (Eliquis) 2.5 mg (1/2 x 5 mg) PO BID #60 tabs 10/04/24 hydralazine 25 mg tablet 25 mg PO TID #90 tabs 10/04/24 magnesium oxide 400 mg (241.3 mg 400 mg PO BID #60 tabs 10/04/24 magnesium) tablet metoprolol succinate 25 mg 25 mg PO DAILY #30 tabs 10/04/24 tablet,extended release 24 hr spironolactone 25 mg tablet 12.5 mg (1/2 x 25 mg) PO DAILY #30 10/04/24 tabs hydrocodone 5 mg-acetaminophen 325 1 tab PO Q4-6H PRN pain #20 tabs 10/13/24 mg tablet ibandronate 150 mg tablet 150 mg PO QMONTH #14 tabs 01/30/25 Allergies Allergy/AdvReac Type Severity Reaction Status Date / Time No Known Drug Allergies Allergy Verified 02/10/25 14:20 Review of Systems Review of Systems Narrative: See HPI. 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 sohail/islam: None travel history: recent leisure activities: sports and other Tobacco: How many years used: 40 Smokeless tobacco user: other quit status: quit date established second hand exposure: No alcohol intake: current substance use type: does not use during the past year weight has: decreased > 10 lbs (Early satiety) alcohol intake frequency: 0-2 drinks per day Alcohol type: wine Exam Narrative Exam Narrative: Vitals:? Afebrile, hypertensive, all other vitals within normal range. Gen:? Well-developed, thin elderly female, no acute distress Cards:? Regular, no murmurs, rubs, gallops Pulm:? No increased work of breathing, and expiratory wheezing in upper lobes Abd:? Soft, nondistended, nontender Ext:? No peripheral edema in bilateral lower extremity Neuro:? A&O x4, cranial nerves intact, in all 4 extremities spontaneously Psych:? Appropriate Initial Vital Signs Initial Vital Signs: Vital Signs Temperature 99.1 F 02/10/25 14:20 Pulse Rate 65 02/10/25 14:20 Respiratory Rate 20 02/10/25 14:20 Blood Pressure 197/84 H 02/10/25 14:20 Pulse Oximetry 97 02/10/25 14:20 Oxygen Delivery Method Room Air 02/10/25 14:20 Scores HEART Score Heart Score history: Slightly Suspicious Heart Score EKG: Normal Heart Score Age: > or = 65 years old Heart Score risk factors: 1-2 risk factors Heart Score troponin: < or = to normal limit Heart Score Total: 3 Course Orders Ordered: ED Orders 02/10/25 16:40 Troponin I Stat Discontinued Medications Sodium Chloride (Normal Saline 0.9%) 1,000 mls @ 1,000 mls/hr IV BOLUS ONE Stop: 02/10/25 19:01 Last Admin: 02/10/25 18:13 Dose: Not Given Documented By: REYMUNDO Sodium Chloride (Normal Saline 0.9%) 1,000 mls @ 500 mls/hr IV BOLUS ONE Stop: 02/10/25 20:09 Last Admin: 02/10/25 18:13 Dose: Not Given Documented By: REYMUNDO Ondansetron HCl (Ondansetron 4 Mg/2 Ml Inj) 4 mg IV NOW PRN PRN Reason: Nausea And Vomiting Last Admin: 02/10/25 16:37 Dose: 4 mg Documented By: Ondansetron HCl (Ondansetron 4 Mg Odt) 4 mg PO NOW PRN PRN Reason: Nausea And Vomiting Vital Signs Vital signs: Vital Signs - 8 hr 02/10/25 17:05 02/10/25 17:30 02/10/25 18:00 Temperature Pulse Rate 66 62 63 Respiratory Rate 23 23 Blood Pressure Pulse Oximetry 92 92 Oxygen Delivery Method Oxygen Flow Rate 02/10/25 18:26 02/10/25 18:26 02/10/25 18:39 Temperature 97.6 F Pulse Rate 63 68 Respiratory Rate 24 17 Blood Pressure 153/97 H 164/68 H Pulse Oximetry 92 98 Oxygen Delivery Method Room Air Oxygen Flow Rate 0 MDM - Dizziness Lab Data 02/10/25 14:40 02/10/25 14:40 Labs: Lab Results 02/10/25 02/10/25 Range/Units 14:40 16:40 WBC 6.7 (4.5-11.0) X10^3/uL RBC 4.27 (4.0-5.2) X10^6/uL Hgb 13.7 (12.0-16.0) g/dL Hct 40.4 (36-46) % MCV 94.8 (80-100) fL MCH 32.0 (26-34) PG MCHC 33.8 (30-36) % RDW 16.7 H (11.6-14.8) % Plt Count 222 (150-400) X10^3/uL Neut % (Auto) 70.8 (50-75) % Lymph % (Auto) 18.1 L (25-40) % [place] % (Auto) 9.8 (3-14) % Eos % (Auto) 0.8 L (2-4) % Baso % (Auto) 0.5 (0-2) % Neut # (Auto) 4800 (6253-1170) /uL Lymph # (Auto) 1200 (7563-3104) /uL [place] # (Auto) 700 (0-900) /uL Eos # (Auto) 100 (0-450) /uL Baso # (Auto) 0 (0-100) /uL Sodium 137 (137-145) mmol/L Potassium 4.2 (3.4-5.1) mmol/L Chloride 95 L (98-107) mmol/L Carbon Dioxide 32 (22-32) mmol/L BUN 20 H (7-17) mg/dL Creatinine 1.14 H (0.52-1.04) mg/dL Estimated GFR 47 L (>60) mL/min BUN/Creatinine Ratio 17.5 (6-22) Glucose 105 H (70-99) mg/dL Calcium 9.1 (8.4-10.2) mg/dL Total Bilirubin 0.7 (0.2-1.3) mg/dL AST 32 (14-36) IU/L ALT 18 (<35) IU/L Alkaline Phosphatase 81 (38-126) U/L Troponin I < 0.012 < 0.012 (0.01-0.034) ng/mL Total Protein 7.8 (6.3-8.2) g/dL Albumin 4.7 (3.5-5.0) g/dL Globulin 3.1 (1.7-4.1) g/dL Albumin/Globulin Ratio 1.5 (1.0-2.8) Lipase 278 (23-300) U/L Imaging Data Chest x-ray: Radiologist's Impression: PROCEDURE: XR CHEST 1V INDICATIONS: n/v TECHNIQUE: One view of the chest was acquired. COMPARISON: [facility], , XR CHEST 1V, 10/21/2024, 12:05. [facility], CR, XR CHEST 1V, 09/30/2024, 8:05. FINDINGS: Surgical changes and devices: None. Lungs and pleura: Lungs are clear. No pleural effusions or pneumothorax. Biapical scarring. Mediastinum: Mediastinal contours appear normal. Heart size is normal. Bones and chest wall: No suspicious bony lesions. Overlying soft tissues appear unremarkable. IMPRESSION: No acute cardiopulmonary abnormality is seen. MDM Narrative Medical decision making narrative: Patient is an 84-year-old female with history of atrial fibrillation on Plavix status post a Watchman who presents with one-week history of nausea, feeling hot, dizziness. EMR Review: Reviewed prior cardiology notes to include history of acute CHF, renal failure. Differential diagnosis: IN, acute CHF exacerbation, URI to include COVID, influenza, RSV, electrolyte abnormalities, other. Labs: CBC without leukocytosis or left shift, anemia, normal platelets. CMP significant for KAITLYNN, GFR 47. LFTs are normal. Serial troponins are undetectable. Lipase 278. Images: Chest x-ray without any acute cardiopulmonary pathology. EK sinus bradycardia, heart rate 57, LA 140, QT 472, QTC 459, mild left axis deviation, no ectopy, no other EKGs to compare to. Consults: None. ED Course: Patient arrived to the ER afebrile, hypertensive, all other vitals within normal range. Workup was not consistent with IN. Patient did not appear to be fluid overloaded. Her exam and story was not consistent with cerebrovascular accident. Given negative workup and heart score of 3, patient was discharged to home with outpatient follow up with her chief green officer and primary care physician. Discharge Plan Departure Patient Disposition: Home Clinical Impression: Chest pain, KAITLYNN (acute kidney injury) Activity Restrictions/Additional Instructions: You were seen in the emergency department for chest pain that felt like your previous heart attack. In the ER: -- Your EKG was not consistent with a heart attack. Cardiac enzymes completed twice was negative. -- Labs to include blood count and electrolytes were normal. -- Your creatinine, a measure of your kidney function, was elevated Recommend: -- Hydration with fluids, follow up with your primary care physician for continued monitoring of your kidney function Return to the ER if you develop any new or worsening symptoms. Prescriptions: No Action (DME) Disabled Parking See Rx Instructions .ROUTE .MEDSUPPLY Qty: 1 0RF Rx Instructions: Patient qualifies for disabled parking as per the attached form. atorvastatin 40 mg tablet 40 mg PO DAILY Qty: 90 2RF ibandronate 150 mg tablet 150 mg PO QMONTH Qty: 14 0RF multivitamin tablet 1 tab PO DAILY oxycodone 5 mg tablet 5 mg PO Q3H PRN (Reason: Pain, Moderate (4-6)) Qty: 15 0RF cholecalciferol (vitamin D3) 25 mcg (1,000 unit) capsule 25 mcg PO DAILY calcium carbonate-vitamin D3 600 mg-10 mcg (400 unit) capsule 1 cap PO DAILY folic acid 1 mg Tablet 1 mg PO DAILY Qty: 30 0RF multivitamin with folic acid [Tab-A-Amber] 400 mcg Tablet 1 tab PO DAILY Qty: 30 0RF albuterol sulfate 90 mcg/actuation HFA aerosol inhaler 2 puff inhalation Q6H PRN (Reason: shortness of breath or wheezing) Qty: 8.5 0RF aspirin 81 mg capsule 81 mg PO BID Qty: 60 0RF amiodarone 200 mg Tablet 100 mg PO DAILY Qty: 30 1RF hydralazine 25 mg Tablet 25 mg PO TID Qty: 90 1RF magnesium oxide 400 mg (241.3 mg magnesium) Tablet 400 mg PO BID Qty: 60 1RF Eliquis 5 mg Tablet 2.5 mg PO BID Qty: 60 1RF spironolactone 25 mg Tablet 12.5 mg PO DAILY Qty: 30 1RF metoprolol succinate 25 mg Tablet Extended Release 24 Hr 25 mg PO DAILY Qty: 30 1RF acetaminophen [Tylenol Extra Strength] 500 mg tablet 500 mg PO Q4H PRN (Reason: pain) Qty: 60 0RF Rx Instructions: take 1 tablet by mouth every four hours as needed for pain hydrocodone-acetaminophen 5-325 mg tablet 1 tab PO Q4-6H PRN (Reason: pain) Qty: 20 0RF Trelegy Ellipta 200-62.5-25 mcg blister with device 1 inh inhalation DAILY Qty: 60 6RF Referrals: Ghazal Jones DO [Primary Care Provider, Family Practice] Stand Alone Forms: Patient Portal/API
[2025-02-10] MEDS: ONDANSETRON 4 MG/2 ML INJ IV (16:37)
[2025-02-10 17:12] LABS: Troponin I < 0.012 ng/mL (0.01-0.034)
== END 2025-02-10 18:40 | disposition home or self-care (01) ==
PROVIDERS: Emergency Provider Student in an Organized Health Care Education/Training Program; PCP Family Medicine
DX: N17.9 Acute kidney failure, unspecified (principal); R42 Dizziness and giddiness; R07.9 Chest pain, unspecified; R00.1 Bradycardia, unspecified; I48.91 Unspecified atrial fibrillation; Z79.02 Long term (current) use of antithrombotics/antiplatelets; Z95.818 Presence of other cardiac implants and grafts; R11.0 Nausea
CPT/HCPCS: 71045; 80053; 83690; 84484; 85025; 93005; 96374; 99284; J2405; J7030